=== PATIENT | female | born 1960 | race Caucasian/White ===

== ENCOUNTER 2017-07-06 18:14 | Emergency (ER) | payer MEDICAID, SELFPAY ==
[2017-07-06 18:15] VITALS: BP 124/91; PULSE 119; RESP 16; TEMP 36.4; O2SAT 99; BMI 23.4
--- NOTE | 2017-07-06 19:05 | RAD_ITS ---
XR Spine Lumbar 2 or 3 Views INDICATION: FALL, LOWER BACK PAIN, HX FUSIONS COMPARISON: CT June 01, 2017 . Plain film May 2015 TECHNIQUE: Frontal and lateral views of the lumbar spine with lateral view of the lumbosacral junction FINDINGS: There are postsurgical changes from L2-S1 discectomy and fusion with bilateral pedicle screws and transverse connecting rods. The rods are fractured bilaterally between the L4 and L5 level. There is redemonstration of lucency surrounding the bilateral L2 pedicle screws, the screws appear to have pulled back and only the distal tips are seen extending into the L2 vertebral body. There are severe facet arthritic changes at L2-3 and marked endplate degenerative changes compatible with residual motion at this level. This finding is unchanged compared to the prior CT and unchanged compared to May 2015 plain films. There is no evidence of listhesis. Height of the vertebral bodies is preserved.. RAD/Lumbar Spine 2 or 3 Views IMPRESSION: Postsurgical changes from L2-S1 laminectomies and fusion. The vertical fusion rods are both fractured between the L4 and L5 level, unchanged compared to prior films dating back to May 2015. There is stable loosening of the bilateral L2 pedicle screws with marked degenerative changes at the L2-3 facet joint and disc space. at 1932 Reported and signed by: Aura Encarnacion MD Electronically Signed: Aura Encarnacion MD at 18:30 EST Tel , Service support ,
--- NOTE | 2017-07-06 20:07 | ED.VISSUMM ---
- ER Visit Summary Date of Service: 07/06/17 Chief Complaint: Back pain History of Present Illness: The patient is a 56 F presenting with back pain worsened since yesterday. She has a history of chronic back pain and multiple previous surgeries. She is scheduled to see her orthopedic surgeon on . She does not take any pain medicines at home. She states she slipped on ice 3 days ago and twisted her back. She did not fall completely to the ground. She has a history of urinary incontinence and this has been a chronic problem for her. Denies bowel incontinence. Denies fever or weakness or other complaints. Physical Examination: Vitals are stable. Patient is afebrile. Alert no acute distress. HEENT exam is unremarkable. Neck is nontender Lungs are clear and equal bilaterally. Heart is regular rate and rhythm. Abdomen is soft nontender nondistended. Back diffuse lower tenderness. Extremities are unremarkable. Skin is warm and dry. No focal neurologic deficit. Normal strength and sensation. Remainder of exam is unremarkable. Emergency Department Course and Treatment: She drove herself to the emergency department. X-rays of the lumbar spine are obtained and show postsurgical changes from L2-S1 laminectomies and fusion. The vertical fusion rods are both fractured between the L4 and L5 level, unchanged compared to prior films dating back to May 2015. There is stable loosening of the bilateral L2 pedicle screws with marked degenerative changes at the L2-3 facet joint and disc space. She is given short course of Percocet. Advised to keep her appointment with her orthopedic surgeon on . Advised return to ED for worsening complaints. Disposition: Discharge home Impression: Acute on chronic back pain This note was generated with [employer] dictation software. It may contain incorrect words, spelling, and punctuation that were not noted in review of the chart prior to signing ED Disposition - Plan for ED Patient: Chief Complaint: Back Referrals: Care Physician,No Primary [Primary Care Provider] -
--- NOTE | 2017-07-06 20:10 | ED.DEP ---
ED Disposition - Plan for ED Patient: Chief Complaint: Back Instructions: ED Sprain Strain Lumbar Prescriptions: Oxycodone HCl/Acetaminophen [Percocet 5/325] 1 tablet PO Q6H PRN PRN 3 Days #12 tablet PRN Reason: Pain Referrals: Care Physician,No Primary [Primary Care Provider] -
--- NOTE | 2017-07-06 20:36 | ED.RN ---
DISCHARGE INSTRUCTIONS GIVEN TO AND REVIEWED WITH PATIENT, PATIENT DENIES QUESTIONS OR CONCERNS AND VOICES UNDERSTANDING OF DISCHARGE INSTRUCTIONS. PT AMBULATES OUT OF ROOM WITHOUT DIFFICULTY.
== END 2017-07-06 20:36 | disposition home or self-care (01) ==
LOC: ED 19:26
PROVIDERS: Emergency Provider Emergency Medicine
DX: M54.9 Dorsalgia, unspecified (principal); G89.29 Other chronic pain; Z72.0 Tobacco use
CPT/HCPCS: 72100; 99282

== ENCOUNTER 2017-09-05 02:07 | Emergency (ER) | payer MEDICAID, SELFPAY ==
[2017-09-05 02:09] VITALS: BP 148/96; PULSE 104; RESP 18; TEMP 36.6; O2SAT 100; BMI 22.4
--- NOTE | 2017-09-05 02:16 | ED.VISSUMM ---
- ER Visit Summary Date of Service: 09/05/17 Chief Complaint: Head lice History of Present Illness: The patient is a 57 F with possible lice. She has noted bites to her head and her scalp itches. She was exposed to lice. No other symptoms or concerns. Physical Examination: Vitals unremarkable. I do not appreciate any nits or lice, but she has multiple small areas of ecchymosis and excoriation on her scalp. No evidence of cellulitis. Test Results: None indicated Emergency Department Course and Treatment: Patient did not want to try [id number] remedies. Will prescribe permethrin. She said this worked for a family member. Treatment Plan: As above Disposition: Discharged Impression: 1. Head lice This note was generated with [employer] dictation software. It may contain incorrect words, spelling, and punctuation that were not noted in review of the chart prior to signing ED Disposition - Plan for ED Patient: Disposition: Home or Assisted Living Chief Complaint: Other, Pain/Inj Instructions: ED Lice Head Prescriptions: Permethrin 1% [Nix] 60 ml TOPICAL X1 #1 bottle Referrals: Asif Weber MD [Primary Care Provider] -
--- NOTE | 2017-09-05 02:19 | DCINST.ED_ITS ---
ED Disposition - Plan for ED Patient: Chief Complaint: Other, Pain/Inj Instructions: ED Lice Head Prescriptions: Permethrin 1% [Nix] 60 ml TOPICAL X1 #1 bottle Referrals: Asif Weber MD [Primary Care Provider] -
== END 2017-09-05 02:23 | disposition home or self-care (01) ==
PROVIDERS: Emergency Provider Emergency Medicine; Family Provider Family Medicine; PCP Family Medicine
DX: B85.0 Pediculosis due to Pediculus humanus capitis (principal); Z72.0 Tobacco use
CPT/HCPCS: 99282

== ENCOUNTER → 2017-09-16 13:09 | Outpatient (CLI) | payer MEDICAID, SELFPAY ==
--- NOTE | 2017-09-16 13:11 | RAD_ITS ---
STUDY: X-RAY - LEFT KNEE REASON FOR EXAM: Chronic knee pain. TECHNIQUE: 4 view(s) of the knee. COMPARISON: None. FINDINGS: Normal visualized distal femur. Normal visualized proximal tibia and fibula. Normal proximal tibiofibular articulation. Normal medial femorotibial compartment. Normal lateral femorotibial compartment. Normal patellofemoral articulation. The soft tissue structures are unremarkable. RAD/Knee 4 or More Views IMPRESSION: Normal x-ray examination of the left knee. Electronically Signed: Gilmar Pearson MD at 14:16 EDT Tel , Service support ,
--- NOTE | 2017-09-16 13:11 | RAD_ITS ---
STUDY: X-RAY - RIGHT KNEE REASON FOR EXAM: Chronic knee pain. TECHNIQUE: 4 view(s) of the knee. COMPARISON: Radiograph report 09/16/2012. FINDINGS: Normal visualized distal femur. Normal visualized proximal tibia and fibula. Normal proximal tibiofibular articulation. Normal medial femorotibial compartment. Normal lateral femorotibial compartment. Normal patellofemoral articulation. There is a small enthesophyte at the superior pole of the patella. RAD/Knee 4 or More Views IMPRESSION: Small enthesophyte at the superior pole of the patella. Otherwise, unremarkable x-ray examination of the right knee. Electronically Signed: Gimlar Pearson MD at 14:15 EDT Tel , Service support ,
== END ==
PROVIDERS: Family Provider Family Medicine; PCP Family Medicine; Visit Provider Orthopaedic Surgery
DX: M25.569 Pain in unspecified knee (principal)
CPT/HCPCS: 73564

== ENCOUNTER 2017-09-23 07:41 | Emergency (ER) | payer MEDICAID, SELFPAY ==
[2017-09-23 07:43] VITALS: BP 134/74; PULSE 112; RESP 18; TEMP 36.6; O2SAT 96; BMI 24.0
--- NOTE | 2017-09-23 08:31 | ED.VISSUMM ---
- ER Visit Summary Date of Service: 09/23/17 Chief Complaint: Back pain History of Present Illness: The patient is a [address] Asif Weber and Dr. Uday Reddy. She reports that she has chronic back pain that worsened yesterday. It is a sharp, burning pain that is 10 out of 10 at worst 9 out of 10 currently. Is worsened by walking or touching it. Is relieved by remaining still, heat, and gabapentin. She reports that it radiates down the lateral surface of her right leg to the level of her ankle. No numbness or weakness that is new. No problems with her bowels or her bladder. No groin numbness. No fever. Patient presents paperwork stating that she has a preop appointment with Dr. Uday Reddy October 01 and is scheduled for surgery to have hardware removal October 20. Physical Examination: Vitals: Stable. Afebrile. General: A&O x 3. NAD. Cardiovascular exam: Regular rate and rhythm, no murmur, rub or gallop. Respiratory exam: Clear to auscultation bilaterally. No wheezes or stridor. Abdominal exam: Soft, nontender, nondistended, normal bowel sounds. No peritoneal signs. Back: Diffuse moderate tenderness to palpation over the lumbar spine and the paraspinous musculature in the lumbar region. No point tenderness. Negative straight leg bilaterally. 5/5 DF, PF, EHL bilaterally. Normal sensation to light touch throughout. Extremity: No clubbing, cyanosis, or edema. Emergency Department Course and Treatment: An [facility] report was obtained which shows that she was on Suboxone in July. She is only had 3 prescriptions for opiates in the past year otherwise. She is given a dose of Toradol IM here. Treatment Plan: Patient will be given the benefit of the doubt. She is given a prescription for 12 Percocet and instructed to use these sparingly. Follow-up with Dr. Uday Reddy for further evaluation and her surgery. Return for the signs and symptoms of cauda equina syndrome and these were discussed. Disposition: To home in improved and stable condition. Impression: 1. Acute on chronic back pain. This note was generated with [employer] software. It may contain incorrect words, spelling, and punctuation that were not noted in review of the chart prior to signing ED Disposition - Plan for ED Patient: Chief Complaint: Back Instructions: ED Neck Back Pain General Prescriptions: Oxycodone HCl/Acetaminophen [Percocet 5/325] 1 tablet PO Q6H PRN PRN 3 Days #12 tablet PRN Reason: Pain Referrals: Asif Weber MD [Primary Care Provider] - Additional Instructions: Follow up with Dr. Reddy for surgery as scheduled.
[2017-09-23] MEDS: Ketorolac 60 MG/2 ML Vial IM (08:56)
[2017-09-23 09:03] VITALS: BP 108/77; PULSE 82; RESP 16; O2SAT 98
== END 2017-09-23 09:03 | disposition home or self-care (01) ==
PROVIDERS: Emergency Provider Emergency Medicine; Family Provider Family Medicine; PCP Family Medicine
DX: M54.9 Dorsalgia, unspecified (principal); G89.29 Other chronic pain; R11.0 Nausea; J44.9 Chronic obstructive pulmonary disease, unspecified; F17.210 Nicotine dependence, cigarettes, uncomplicated; Z98.1 Arthrodesis status
CPT/HCPCS: 99282

== ENCOUNTER 2017-09-28 00:43 | Emergency (ER) | payer MEDICAID, SELFPAY ==
[2017-09-28 00:46] VITALS: BP 138/98; PULSE 113; RESP 20; TEMP 36.4; O2SAT 94; BMI 23.2
--- NOTE | 2017-09-28 01:04 | EKG12_ITS ---
Test Reason : CP Blood Pressure : / mmHG Vent. Rate : 108 BPM Atrial Rate : 108 BPM P-R Int : 112 ms QRS Dur : 070 ms QT Int : 304 ms P-R-T Axes : 070 082 077 degrees QTc Int : 407 ms Sinus tachycardia Otherwise normal ECG Confirmed by MARIANA RAZO, DAMIAN ([id number]), technical writer and editor BETTE MENARD ([id number]) on 09/29/2017 2:17:25 PM Referred By: DR NAGY Confirmed By:DAMIAN PEÑA MD
--- NOTE | 2017-09-28 01:05 | ED.VISSUMM ---
- ER Visit Summary Date of Service: 09/28/17 Chief Complaint: Chest pain History of Present Illness: The patient is a 57 F sudden midsternal chest pain radiates to her right shoulder and neck since 5 PM yesterday 8 hours ago. States granddaughters in the ED sent to [facility] for psych evaluation. She was stressed. Pain has been persistent 8 out of 10. She told [facility] nurses states would not help her. She came back. Mild cough. No PE risk factors. Tobacco history. No diabetes, hypertension, hyper cholesterolemia. No family history of MIs at a young age. Stress test years ago. Took 3 full dose aspirins earlier today. Physical Examination: General: Alert and oriented ?3, no acute distress HEENT: Normocephalic, atraumatic. Moist mucosa membranes Neck: supple, nontender. Cardiovascular: Regular rate 96 and rhythm, no murmurs Respiratory: Normal breath sounds, symmetric, no distress Abdomen: Soft, nontender, nondistended Extremities: Nontender, no edema, pulses intact ?4 Neuro: no focal neurological deficits. Test Results: EKG sinus rate of [address] or T-wave changes. D-dimer 0.27. Troponin negative. White blood cell count 16.9. Creatinine normal. Emergency Department Course and Treatment: Patient took aspirin at home. EKG sinus tachycardia. Atypical chest symptoms. She given fentanyl for pain. Low risk Wells criteria for PE. Cardiac workup alone d-dimer are negative. Heart scores a 2. Symptoms greater than 8 hours negative troponin less likely cardiac in nature. Symptoms resolved on reevaluation. Discussed with patient need to follow-up with her PCP for reevaluation outpatient stress test. Patient understands and agrees with plan. Patient return if any worsening symptoms. Treatment Plan: [] Disposition: Discharge Impression: Atypical chest pain This note was generated with [employer] dictation software. It may contain incorrect words, spelling, and punctuation that were not noted in review of the chart prior to signing ED Disposition - Plan for ED Patient: Disposition: Home or Assisted Living Chief Complaint: Chest Pain Diagnosis: Atypical chest pain Instructions: ED Chest Pain Atypical Unkn Cause Referrals: Asif Weber MD [Primary Care Provider] - 3-5 Days
[2017-09-28 01:13] LABS: Absolute Lymphocyte Count 3.94 X10^3/ul (0.83-4.51); Absolute Neutrophil Count 11.4 X10^3/uL (2.0-7.7); Basophil# 0.02 X10^3/uL; Basophil% 0.1 % (0-1); Eosinophil# 0.13 X10^3/uL; Eosinophils% 0.8 % (0-5); Hematocrit 49.6 % (37-47); Hemoglobin 16.8 g/dl (12.0-15.0); Lymphocyte # 3.94 X10^3/ul (4.0); Lymphocyte % 23.4 % (19-41); Mean Corp Hgb Conc 33.9 g/gl (32-36); Mean Corpuscular Hgb 31.9 pg (27.0-32.0); Mean Corpuscular Volume 94.1 fL (81-99); Mean Platelet Vol. 10.2 fl (6.2-12.0); Monocyte# 1.25 X10^3/uL; Monocyte% 7.4 % (0-10); Neutrophil # 11.38 X10^3/uL (2.7-7.7); Neutrophil % 67.4 % (47-70); POSITIVE COUNT NO; POSITIVE DIFFERENTIAL NO; POSITIVE MORPHOLOGY NO; Platelet Count 246 K/mm3 (150-450); RBC Distribution Width CV 14.2 % (11.6-14.6); RBC Distribution Width SD 48.5 fl (35.1-43.9); Red Blood Count 5.27 M/mm3 (4.2-5.4); White Blood Count 16.9 K/mm3 (4.4-11.0)
[2017-09-28 01:28] LABS: D-Dimer Quantitative (DVT/PE) 0.27 FEU/ug/m (0.27-0.49)
[2017-09-28] MEDS: fentaNYL 100 MCG/2 ML Ampul 50 MCG IV (01:29)
[2017-09-28 01:37] LABS: Anion Gap 10 (5-15); BUN 28 mg/dL (7-18); BUN/Creat Ratio 38.5 RATIO (10-20); Calcium,Total 8.9 mg/dL (8.5-10.1); Chloride 108 mmol/L (98-107); Creatinine, Serum 0.73 mg/dL (0.55-1.02); EST Glomerular Filtration Rate 88 mL/min (>60); Est Glom Filt Rate - Afr Amer 106 mL/min (>60); Estimated Creatinine Clearance 89.93 ml/min; Glucose 138 mg/dL (74-106); Sodium Level 140 mmol/L (136-145)
[2017-09-28 01:55] VITALS: PULSE 108; RESP 26
[2017-09-28 02:16] VITALS: PULSE 99; RESP 16; O2SAT 98
--- NOTE | 2017-09-28 02:30 | RAD_ITS ---
STUDY: X-RAY CHEST REASON FOR EXAM: Female, 57 years old. Cough, chest pain TECHNIQUE: PA and lateral views of the chest. COMPARISON: 08/16/2015 FINDINGS: The lungs are hyperaerated. There are superimposed monitor leads. There is no focal parenchymal abnormality. There is no demonstrated pleural abnormality. Normal size heart. Normal mediastinum and jose. Normal visualized pulmonary arteries. Normal visualized aortic arch and descending thoracic aorta. Prior cervical and lumbar fusion. Normal visualized ribs, clavicles, and shoulders. There is no demonstrated abnormality of the visualized soft tissue structures of the upper abdomen. RAD/Chest PA and Lateral IMPRESSION: Stable hyperinflation, component of COPD suspected. No pulmonary edema, congestive heart failure or confluent pneumonia. Electronically Signed: Silvia Mcneil MD at 3:41 EDT , Service support ,
[2017-09-28 03:05] VITALS: BP 147/80; PULSE 100; RESP 20; O2SAT 96
== END 2017-09-28 03:08 | disposition home or self-care (01) ==
PROVIDERS: Emergency Provider Emergency Medicine; Family Provider Family Medicine; PCP Family Medicine
DX: R07.89 Other chest pain (principal); R05 Cough; K21.9 Gastro-esophageal reflux disease without esophagitis; J44.9 Chronic obstructive pulmonary disease, unspecified; Z72.0 Tobacco use; R00.0 Tachycardia, unspecified
CPT/HCPCS: 71046; 80048; 84484; 85025; 85379; 93005; 99284; A4216

== ENCOUNTER 2017-10-04 15:26 | Emergency (ER) | payer MEDICAID, SELFPAY ==
[2017-10-04 15:27] VITALS: BP 134/94; PULSE 131; RESP 16; TEMP 36.9; O2SAT 96; BMI 23.2
--- NOTE | 2017-10-04 16:00 | ED.VISSUMM ---
- ER Visit Summary Date of Service: 10/04/17 Chief Complaint: Exacerbation of chronic back pain. History of Present Illness: The patient is a 57 F dense because of right lower back pain secondary to broken hardware . She is scheduled to see Dr. Uday Reddy at the [facility] October 20. She denies bowel or bladder dysfunction. She denies saddle paresthesia or anesthesia. She denies any radicular pain. She denies foot drop. She denies weakness in her quadriceps muscle going up or down steps. She denies fever, chills night sweats. She denies dysuria, frequency, urgency or hematuria. She states the pain is worse with movement. Nothing is alleviating her discomfort. Patient was bordering to obtain pain medicine. She was informed since this is chronic pain her exam does not reveal evidence of herniated disc or any neurologic deficits treatment is rest, ice and either Tylenol or anti-inflammatory. Furthermore, patient was informed that there has been a recent study published with regards to efficacy of Tylenol versus NSAIDs versus opiate analgesia and there was no statistical difference. Physical Examination: Blood pressure is elevated 134/94. Heart rate is documented 131. On my exam heart rate is 90-95. She does not appear in any discomfort. Head is atraumatic normocephalic. Pupils are equal round reactive. Extraocular muscles are intact. TMs are pearly white with landmarks noted. Nares patent with no drainage. Posterior pharynx without erythema or exudate. Uvula is midline. There is no dysphonia or dysphasia. Trachea is midline. There is no stridor with auscultation of the neck. Heart is regular without murmur, gallop or rub. S1 and S2 are normal. Lungs are clear to auscultation with good movement of air bilaterally. Abdomen is soft nontender. Bowel sounds are present normal. Straight leg test is negative bilaterally. Patient did complain of pain in her right low back at 5?. Patella and ankle reflex are 1+ and symmetric. EHL is intact. There is no clonus or Babinski sign noted. DP and PT pulses are palpable. She has normal sensation. Test Results: None are indicated Emergency Department Course and Treatment: Patient's MRI report from May of this year was read. There is no difference compared to prior MRI. There are postoperative changes noted. Treatment Plan: Rest, ice and either Tylenol or anti-inflammatory. Disposition: Discharged to keep appointment with Dr. Uday Reddy for October 20 Impression: Exacerbation of right low back pain This note was generated with [employer] dictation software. It may contain incorrect words, spelling, and punctuation that were not noted in review of the chart prior to signing ED Disposition - Plan for ED Patient: Disposition: Home or Assisted Living Chief Complaint: Back Instructions: ED Neck Back Pain General Referrals: Jurgen Reddy, [NON-STAFF] - Keep Kadi appointment Asif Wbeer MD [Primary Care Provider] - Keep Kadi appointment
--- NOTE | 2017-10-04 16:05 | ED.DCSUM_ITS ---
- ER Visit Summary Date of Service: 10/04/17 Chief Complaint: Exacerbation of chronic back pain. History of Present Illness: The patient is a 57 F dense because of right lower back pain secondary to broken hardware . She is scheduled to see Dr. Uday Reddy at the [facility] October 20. She denies bowel or bladder dysfunction. She denies saddle paresthesia or anesthesia. She denies any radicular pain. She denies foot drop. She denies weakness in her quadriceps muscle going up or down steps. She denies fever, chills night sweats. She denies dysuria, frequency, urgency or hematuria. She states the pain is worse with movement. Nothing is alleviating her discomfort. Patient was bordering to obtain pain medicine. She was informed since this is chronic pain her exam does not reveal evidence of herniated disc or any neurologic deficits treatment is rest, ice and either Tylenol or anti- inflammatory. Furthermore, patient was informed that there has been a recent study published with regards to efficacy of Tylenol versus NSAIDs versus opiate analgesia and there was no statistical difference. Physical Examination: Blood pressure is elevated 134/94. Heart rate is documented 131. On my exam heart rate is 90-95. She does not appear in any discomfort. Head is atraumatic normocephalic. Pupils are equal round reactive. Extraocular muscles are intact. TMs are pearly white with landmarks noted. Nares patent with no drainage. Posterior pharynx without erythema or exudate. Uvula is midline. There is no dysphonia or dysphasia. Trachea is midline. There is no stridor with auscultation of the neck. Heart is regular without murmur, gallop or rub. S1 and S2 are normal. Lungs are clear to auscultation with good movement of air bilaterally. Abdomen is soft nontender. Bowel sounds are present normal. Straight leg test is negative bilaterally. Patient did complain of pain in her right low back at 5?. Patella and ankle reflex are 1+ and symmetric. EHL is intact. There is no clonus or Babinski sign noted. DP and PT pulses are palpable. She has normal sensation. Test Results: None are indicated Emergency Department Course and Treatment: Patient's MRI report from May of this year was read. There is no difference compared to prior MRI. There are postoperative changes noted. Treatment Plan: Rest, ice and either Tylenol or anti-inflammatory. Disposition: Discharged to keep appointment with Dr. Uday Reddy for October 20 Impression: Exacerbation of right low back pain This note was generated with [employer] dictation software. It may contain incorrect words, spelling, and punctuation that were not noted in review of the chart prior to signing ED Disposition - Plan for ED Patient: Disposition: Home or Assisted Living Chief Complaint: Back Instructions: ED Neck Back Pain General Referrals: Jurgen Reddy, [NON-STAFF] - Keep Kadi appointment Asif Weber MD [Primary Care Provider] - Keep Kadi appointment
== END 2017-10-04 16:20 | disposition home or self-care (01) ==
PROVIDERS: Emergency Provider Emergency Medicine; Family Provider Family Medicine; PCP Family Medicine
DX: M54.5 Low back pain (principal); G89.29 Other chronic pain; F32.9 Major depressive disorder, single episode, unspecified; F41.9 Anxiety disorder, unspecified; R20.2 Paresthesia of skin; K21.9 Gastro-esophageal reflux disease without esophagitis; E78.00 Pure hypercholesterolemia, unspecified; J44.9 Chronic obstructive pulmonary disease, unspecified; Z72.0 Tobacco use
CPT/HCPCS: 99282

== ENCOUNTER 2017-10-24 22:17 | Emergency (ER) | payer MEDICAID, SELFPAY ==
[2017-10-24 22:18] VITALS: BP 110/72; PULSE 114; RESP 18; TEMP 37; O2SAT 98; BMI 22.4
--- NOTE | 2017-10-24 22:36 | ED.RN ---
while triaging pt, attempted to educate pt on risk of infection d/t not changing bandages. pt states i have had 6 back surgeries, i know how to care for them. pt was asked when she didn't change these bandages. pt states i don't know what the doctor wants me to do and i don't have bandages at home. informed pt er was not able to provide bandages and that she should follow her discharge instructions and follow up with her surgeon. pt states to granddaughter you hear this? you hear how she is talking to me? i am calling administration in the morning and telling them how you talked to me.
--- NOTE | 2017-10-24 22:37 | ED.VISSUMM ---
- ER Visit Summary Date of Service: 10/24/17 Chief Complaint: [] Wound check status post surgery History of Present Illness: The patient is a 57 F [] presents here for wound check of her low back. Patient reports she is only here for wound change dressing. She reports she is status post surgery 4 days ago. She had orthopedic hardware removed at [facility]. She reportedly had the wound check 2 days postoperatively and had a new dressing then. She denies fevers. Reports feeling great postoperatively. Physical Examination: [] Afebrile, vital signs stable. Examination of the wound reveals a normal postoperative healing wound with jessica intact. No signs of drainage, erythema, cellulitis. Test Results: [] None. Emergency Department Course and Treatment: [] Patient had the dressing change after the wound was evaluated. She was encouraged to follow-up with her primary care physician and/or orthopedic physician for further wound checks and dressing changes. Treatment Plan: [] Follow-up with orthopedic surgery. Disposition: [] Discharge, stable. Impression: [] Wound check status post back surgery This note was generated with [employer] dictation software. It may contain incorrect words, spelling, and punctuation that were not noted in review of the chart prior to signing ED Disposition - Plan for ED Patient: Chief Complaint: Wound Check Referrals: Asif Weber MD [Primary Care Provider] -
--- NOTE | 2017-10-24 22:40 | ED.DCSUM_ITS ---
- ER Visit Summary Date of Service: 10/24/17 Chief Complaint: [] Wound check status post surgery History of Present Illness: The patient is a 57 F [] presents here for wound check of her low back. Patient reports she is only here for wound change dressing. She reports she is status post surgery 4 days ago. She had orthopedic hardware removed at [facility]. She reportedly had the wound check 2 days postoperatively and had a new dressing then. She denies fevers. Reports feeling great postoperatively. Physical Examination: [] Afebrile, vital signs stable. Examination of the wound reveals a normal postoperative healing wound with jessica intact. No signs of drainage, erythema, cellulitis. Test Results: [] None. Emergency Department Course and Treatment: [] Patient had the dressing change after the wound was evaluated. She was encouraged to follow-up with her primary care physician and/or orthopedic physician for further wound checks and dressing changes. Treatment Plan: [] Follow-up with orthopedic surgery. Disposition: [] Discharge, stable. Impression: [] Wound check status post back surgery This note was generated with [employer] dictation software. It may contain incorrect words, spelling, and punctuation that were not noted in review of the chart prior to signing ED Disposition - Plan for ED Patient: Chief Complaint: Wound Check Referrals: Asif Weber MD [Primary Care Provider] -
--- NOTE | 2017-10-24 22:40 | ED.DEP ---
ED Disposition - Plan for ED Patient: Disposition: Home or Assisted Living Chief Complaint: Wound Check Instructions: ED Wound Check Post Op No Infec Referrals: Asif Weber MD [Primary Care Provider] -
[2017-10-24 23:00] VITALS: RESP 18
== END 2017-10-24 23:03 | disposition home or self-care (01) ==
PROVIDERS: Emergency Provider Emergency Medicine; Family Provider Family Medicine; PCP Family Medicine
DX: Z48.01 Encounter for change or removal of surgical wound dressing (principal)
CPT/HCPCS: 99282

== ENCOUNTER → 2017-11-08 11:53 | Outpatient (CLI) | payer MEDICAID, SELFPAY ==
--- NOTE | 2017-11-08 11:57 | RAD_ITS ---
STUDY: X-RAY - RIGHT HAND REASON FOR EXAM: Swelling and redness of the proximal third metacarpal with pain and weakness, no specific injury. TECHNIQUE: 3 view(s) of the hand. COMPARISON: None. FINDINGS: Normal radiocarpal articulation. Normal distal radioulnar joint. Normal visualized carpal bones. Normal carpal articulations Normal carpometacarpal articulation of the thumb. Normal second through fifth carpometacarpal joints. Normal metacarpi. Normal metacarpophalangeal joint of the thumb. Normal interphalangeal joint of the thumb. Normal proximal and distal phalanges of the thumb. Normal metacarpophalangeal joints of the second through fifth fingers. Normal proximal and distal interphalangeal joints of the second through fifth fingers. Normal phalanges of the second through fifth fingers. The soft tissue structures are unremarkable. RAD/Hand Min 3 Views IMPRESSION: Normal x-ray examination of the right hand. Electronically Signed: Gilmar Pearson MD at 15:17 EDT Tel , Service support ,
== END ==
PROVIDERS: Family Provider Family Medicine; PCP Family Medicine; Visit Provider Family Medicine
DX: M79.641 Pain in right hand (principal)
CPT/HCPCS: 73130

== ENCOUNTER → 2017-11-16 11:46 | Outpatient (CLI) | payer MEDICAID, SELFPAY ==
[2017-11-16 18:53] LABS: AST(SGOT) 96 U/L (15-37); Alanine Aminotransfer ALT/SGPT 97 U/L (13-56); Albumin, Serum 3.1 g/dL (3.2-5.0); Alkaline Phosphatase 157 U/L (45-117); Anion Gap 7 (5-15); BUN 17 mg/dL (7-18); BUN/Creat Ratio 34.1 RATIO (10-20); Calcium,Total 8.1 mg/dL (8.5-10.1); Chloride 108 mmol/L (98-107); EST Glomerular Filtration Rate 136 mL/min (>60); Est Glom Filt Rate - Afr Amer 164 mL/min (>60); Globulin 3.1 g/dL (2.2-4.2); Glucose 114 mg/dL (74-106); Magnesium 2.2 mg/dL (1.6-2.6); Potassium 4.3 mmol/L (3.5-5.1); Protein, Total 6.2 g/dL (6.4-8.2); Sodium Level 140 mmol/L (136-145); Thyroid Stim Hormone (TSH) 1.44 uIU/mL (0.358-3.74)
[2017-11-17 10:28] LABS: Vitamin D,25 Hydroxy 13.9 ng/mL (29.95-100.01)
== END ==
PROVIDERS: Family Provider Family Medicine; PCP Family Medicine; Visit Provider Family Medicine
DX: R25.2 Cramp and spasm (principal)
CPT/HCPCS: 36415; 80053; 82306; 83735; 84443

== ENCOUNTER 2017-12-08 08:03 | Emergency (ER) | payer MEDICAID, SELFPAY ==
[2017-12-08 08:04] VITALS: BP 117/80; PULSE 109; RESP 16; TEMP 37.2; BMI 22.8
--- NOTE | 2017-12-08 08:17 | RAD_ITS ---
STUDY: X-RAY - RIGHT ANKLE REASON FOR EXAM: Female, 57 years old. Pain. Limited range of motion. TECHNIQUE: 4 view(s) of the ankle. COMPARISON: None. FINDINGS: Normal visualized distal tibia and fibula. Normal medial and lateral malleoli. Normal tibiotalar articulation and ankle mortise. There is evidence of a talar neck leak. The visualized subtalar, talonavicular, calcaneocuboid and tarsal articulations are normal. The soft tissue structures are unremarkable. RAD/Ankle min 3 Views IMPRESSION: Normal x-ray examination of the ankle. Electronically Signed: Daniel Mason MD at 8:52 EDT Tel [phone], Service support ,
--- NOTE | 2017-12-08 08:17 | RAD_ITS ---
STUDY: X-RAY - RIGHT FOOT CLINICAL: Female, 57 years old. Pain and limited range of motion. TECHNIQUE: 3 view(s) of the foot. COMPARISON: None. FINDINGS: There is a dorsal talar neck ?beak?. Normal visualized subtalar, talonavicular, calcaneocuboid, tarsal and tarsometatarsal articulations. Normal metatarsi. Normal metatarsophalangeal joint of the great toe. Normal tibial and fibular sesamoid bones. Normal interphalangeal joint of the great toe. Normal phalanges of the great toe. Normal second through fifth metatarsophalangeal joints. Normal interphalangeal joints and phalanges of the lesser toes. The soft tissue structures are unremarkable. RAD/Foot min 3 Views IMPRESSION: Normal x-ray examination of the foot. Electronically Signed: Daniel Mason MD at 8:52 EDT Tel [phone], Service support ,
--- NOTE | 2017-12-08 08:29 | ED.DCSUM_ITS ---
- ER Visit Summary Date of Service: 12/08/17 Chief Complaint: Right ankle pain History of Present Illness: The patient is a 57 F who states that she was going down some steps yesterday and stepped in a small hole due to some uneven concrete causing an inversion injury to her right ankle. She states she caused abrasions to the left knee and foot. She notes pain in the right ankle particularly laterally on top. She denies any right knee pain or right leg pain. Patient was assuming she had minor injury but the pain continued throughout the night and sought treatment today. Unknown last tetanus. Physical Examination: Afebrile vital signs are stable There is abrasion noted over the anterior left knee and lateral left foot. There is small abrasion over the right lateral malleolus right fifth metatarsal. There is tenderness in this area. There is no significant swelling or ecchymosis. There is no fibular head pain. Test Results: X-rays of the right foot and ankle were negative for fracture. Emergency Department Course and Treatment: Wounds were cleansed and dressed. Tetanus is updated with Adacel. She will use Joe wrap. Follow-up 10-14 days if not improved. Monitor for infection signs. Impression: 1. Right ankle sprain 2. Bilateral lower extremity abrasions 3. Tetanus update This note was generated with [employer] dictation software. It may contain incorrect words, spelling, and punctuation that were not noted in review of the chart prior to signing ED Disposition - Plan for ED Patient: Disposition: Home or Assisted Living Chief Complaint: Lower Extremity Injury Instructions: ED Sprain Ankle W X Ray Referrals: Asif Weber MD [Primary Care Provider] - 10-14 Days if not better
[2017-12-08] MEDS: Diphth,Pertuss(Acell),Tet Vac 0.5 ML Vial IM (08:36)
== END 2017-12-08 09:11 | disposition home or self-care (01) ==
PROVIDERS: Emergency Provider Emergency Medicine; Family Provider Family Medicine; PCP Family Medicine
DX: S80.212A Abrasion, left knee, initial encounter (principal); S80.211A Abrasion, right knee, initial encounter; S93.401A Sprain of unspecified ligament of right ankle, initial encounter; Z23 Encounter for immunization; J44.9 Chronic obstructive pulmonary disease, unspecified; K21.9 Gastro-esophageal reflux disease without esophagitis; Z72.0 Tobacco use; X50.1XXA Overexertion from prolonged static or awkward postures, initial encounter; Y93.9 Activity, unspecified; Y92.89 Other specified places as the place of occurrence of the external cause; Y99.9 Unspecified external cause status
CPT/HCPCS: 73610; 73630; 90471; 90715; 99282

== ENCOUNTER 2018-01-19 10:34 | Emergency (ER) | payer MEDICAID, SELFPAY ==
[2018-01-19 10:35] VITALS: BP 153/82; PULSE 93; RESP 18; TEMP 36.7; O2SAT 99; BMI 22.1
[2018-01-19 11:13] LABS: Absolute Lymphocyte Count 1.59 X10^3/ul (0.83-4.51); Absolute Neutrophil Count 3.3 X10^3/uL (2.0-7.7); Basophil# 0.02 X10^3/uL; Basophil% 0.4 % (0-1); Eosinophil# 0.11 X10^3/uL; Eosinophils% 1.9 % (0-5); Hematocrit 42.2 % (37-47); Hemoglobin 13.5 g/dl (12.0-15.0); Lymphocyte # 1.59 X10^3/ul (4.0); Lymphocyte % 27.9 % (19-41); Mean Corpuscular Hgb 29.8 pg (27.0-32.0); Mean Corpuscular Volume 93.2 fL (81-99); Mean Platelet Vol. 11.1 fl (6.2-12.0); Monocyte# 0.63 X10^3/uL; Monocyte% 11.1 % (0-10); Neutrophil # 3.34 X10^3/uL (2.7-7.7); Neutrophil % 58.7 % (47-70); POSITIVE COUNT NO; POSITIVE DIFFERENTIAL NO; POSITIVE MORPHOLOGY NO; Platelet Count 132 K/mm3 (150-450); RBC Distribution Width CV 13.7 % (11.6-14.6); RBC Distribution Width SD 46.7 fl (35.1-43.9); Red Blood Count 4.53 M/mm3 (4.2-5.4); White Blood Count 5.7 K/mm3 (4.4-11.0)
[2018-01-19 11:21] VITALS: BP 148/80; PULSE 90; RESP 14; O2SAT 98
[2018-01-19] MEDS: Metoclopramide 10 MG/2 ML Vial IV (11:26)
[2018-01-19 11:29] LABS: ALB/GLOB Ratio 0.9 RATIO (0.9-2.4); AST(SGOT) 101 U/L (15-37); Alanine Aminotransfer ALT/SGPT 71 U/L (13-56); Albumin, Serum 3.1 g/dL (3.2-5.0); Alkaline Phosphatase 150 U/L (45-117); Anion Gap 8 (5-15); BUN 11 mg/dL (7-18); Calcium,Total 8.6 mg/dL (8.5-10.1); Chloride 108 mmol/L (98-107); Creatinine, Serum 0.61 mg/dL (0.55-1.02); EST Glomerular Filtration Rate 108 mL/min (>60); Est Glom Filt Rate - Afr Amer 130 mL/min (>60); Estimated Creatinine Clearance 107.62 ml/min; Globulin 3.4 g/dL (2.2-4.2); Glucose 101 mg/dL (74-106); Lipase 250 U/L (73-393); Potassium 3.6 mmol/L (3.5-5.1); Protein, Total 6.5 g/dL (6.4-8.2); Sodium Level 144 mmol/L (136-145)
[2018-01-19 13:03] LABS: Mucous, Urine 0 SEEN /hpf (<or=2+); Red Blood Cells-Urine 0 SEEN /hpf (0-5); White Blood Cells 0 SEEN /hpf (0-5)
[2018-01-19 13:06] LABS: Color, Urine Yellow (Yellow); Glucose, Dipstick Normal (Normal); Ketone-Dipstick Negative (Negative); Leukocyte Esterase-Dipstick Negative /ul (Negative); Nitrite-Dipstick Negative (Negative); Occult Blood-Urine Negative /ul (Negative); Protein-Dipstick Negative (Negative); Urine Bilirubin Dipstick Negative (Negative); Urine Clarity Sl. Cloudy (Clear); Urine Urobilinogen Normal (Normal)
[2018-01-19 13:14] LABS: Bacteria RARE /hpf (None Seen); Squamous Epithelial Cells - UA 0-5 SEEN /hpf (5-10)
--- NOTE | 2018-01-19 13:18 | ED.VISSUMM ---
- ER Visit Summary Date of Service: 01/19/18 Chief Complaint: [Nausea and abdominal pain] History of Present Illness: The patient is a 57 F [presents the emergency department complaint of nausea started 2 weeks ago. Patient states that symptoms have been relatively continuous. Patient describes intermittent abdominal cramping as well. Patient describes the discomfort in her abdomen is epigastric. Patient at times feels like she needs to belch frequently after eating and feels like the food does not move through. Patient denies any diarrhea. She denies any blood in her stool or black tarry stool. She denies any fevers. Patient states at times she will take [place] and it seems to help her pain. Patient also describes intermittent episodes of just vomiting. Patient denies any chest pain or shortness of breath. Patient does have a history of COPD and history of peptic ulcer disease as she currently takes Protonix.] Patient has had prior cholecystectomy. Physical Examination: HEENT-PERRLA, EOMI. Cranial nerves II through XII grossly intact. TMs clear. Mucous membranes moist. No adenopathy. Cardiovascular-regular rate and rhythm without murmur or ectopy Lungs-clear to auscultation, chest wall stable without crepitus or subcu emphysema Abdomen-normoactive bowel sounds, soft. Patient does have some tenderness over the epigastric region with some guarding. There is no rebound, rigidity, or perineal signs. Patient also has some just generalized diffuse abdominal discomfort on exam as well. Extremities-intact ?4, normal range of motion, normal pulses, atraumatic[] Test Results: [CBC with differential obtained showed a white blood cell count of 5.7, hemoglobin 13, hematocrit 42, platelets 132. Chemistries unremarkable. LFTs showed a alkaline phosphatase of 150, ALT 71, AST 101, and lipase was 250. Troponin was less than 0.015. EKG obtained showed a sinus rhythm with a ventricular rate of 81 bpm with no acute ST segment changes. CT scan of the abdomen and pelvis with IV p.o. contrast showed nothing acute. Patient was noted to have some fatty infiltration of the liver.] Emergency Department Course and Treatment: [Patient was medicated with Zofran IV.] This point etiology of patient's pain is unclear patient may need further workup including possibly EGD to evaluate further. Treatment Plan: [Patient will follow up with Dr. Onofre Olmos in 2 days as she has a appointment set.] Patient will be given a prescription for Phenergan. Patient advised to avoid spicy and greasy foods as well as acidic foods. Disposition: [Discharged home in stable condition.] Impression: Abdominal pain-etiology uncertain] Nausea This note was generated with [employer] dictation software. It may contain incorrect words, spelling, and punctuation that were not noted in review of the chart prior to signing ED Disposition - Plan for ED Patient: Chief Complaint: Nausea/Vomiting Referrals: Asif Weber MD [Primary Care Provider] -
--- NOTE | 2018-01-19 13:22 | ED.DEP ---
ED Disposition - Plan for ED Patient: Chief Complaint: Nausea/Vomiting Instructions: ED Nausea Vomiting, Abdominal Pain Prescriptions: proMETHazine tablet [Phenergan] 25 mg PO Q6H PRN PRN #10 tab PRN Reason: Nausea Referrals: Asif Weber MD [Primary Care Provider] - Onofre Olmos MD [STAFF PHYSICIAN] - 2 Days
[2018-01-19 13:33] VITALS: BP 130/70; PULSE 85; PULSE 90; RESP 14; O2SAT 98
== END 2018-01-19 13:34 | disposition home or self-care (01) ==
PROVIDERS: Emergency Provider Emergency Medicine; Family Provider Family Medicine; PCP Family Medicine
DX: R11.0 Nausea (principal); R10.9 Unspecified abdominal pain; K76.0 Fatty (change of) liver, not elsewhere classified; J44.9 Chronic obstructive pulmonary disease, unspecified; Z87.11 Personal history of peptic ulcer disease; Z90.49 Acquired absence of other specified parts of digestive tract; Z72.0 Tobacco use
CPT/HCPCS: 74177; 80053; 81001; 83690; 84484; 85025; 93005; 96374; 99283; Q9967; A4216

== ENCOUNTER 2018-03-11 02:51 | Emergency (ER) | payer MEDICAID, SELFPAY ==
[2018-03-11 02:52] VITALS: BP 119/81; PULSE 107; RESP 18; TEMP 36.6; O2SAT 98; BMI 25.2
--- NOTE | 2018-03-11 03:03 | ED.DCSUM_ITS ---
- ER Visit Summary Date of Service: 03/11/18 Chief Complaint: Rash History of Present Illness: The patient is a 57 F who presents with a rash. She states she has had it for 3 weeks. She went out to [place] last month and the rash started when she came back. She denies any new irritants. She states it started on the neck but now spreading down the trunk. It itches. She has been trying Benadryl and itching spray Physical Examination: Vital signs reviewed. HEENT exam reveals no lesions inside the mouth. Skin exam reveals a rash of the trunk into the neck. There is no petechia or purpura. No blisters noted. Test Results: None performed Emergency Department Course and Treatment: Patient has a nonspecific dermatitis. She will be given hydrocortisone cream and Vistaril. She will follow-up with her PCP Treatment Plan: [] Disposition: Discharge Impression: Dermatitis This note was generated with [employer] dictation software. It may contain incorrect words, spelling, and punctuation that were not noted in review of the chart prior to signing ED Disposition - Plan for ED Patient: Chief Complaint: Rash Referrals: Asif Weber MD [Primary Care Provider] -
--- NOTE | 2018-03-11 03:03 | ED.DEP ---
ED Disposition - Plan for ED Patient: Disposition: Home or Assisted Living Chief Complaint: Rash Instructions: ED Dermatitis Non Specific Rash Prescriptions: hydrOXYzine pamoate capsule [Vistaril] 25 mg PO TID PRN PRN #30 cap PRN Reason: Itching Hydrocortisone 1% Crm [Hytone] 1 applic TOPICAL BID #1 tube Referrals: Asif Weber MD [Primary Care Provider] -
== END 2018-03-11 03:15 | disposition home or self-care (01) ==
PROVIDERS: Emergency Provider Emergency Medicine; Family Provider Family Medicine; PCP Family Medicine
DX: L30.9 Dermatitis, unspecified (principal); Z72.0 Tobacco use
CPT/HCPCS: 99282

== ENCOUNTER → 2018-05-30 13:00 | Outpatient (CLI) | payer MEDICAID, SELFPAY ==
[2018-05-26 12:59] VITALS: BMI 25.2
[2018-05-30 13:26] LABS: Erythrocyte Sedimentation Rate 4 mm/hr (0-30)
[2018-05-30 13:48] LABS: AST(SGOT) 103 U/L (15-37); Alanine Aminotransfer ALT/SGPT 94 U/L (13-56); Albumin, Serum 3.7 g/dL (3.2-5.0); Alkaline Phosphatase 143 U/L (45-117); Ammonia < 10.0 umol/L (11-32); Anion Gap 10 (5-15); BUN 14 mg/dL (7-18); CRP < 2.90 mg/L (0.0-3.0); Calcium,Total 8.9 mg/dL (8.5-10.1); Chloride 106 mmol/L (98-107); Creatinine, Serum 0.61 mg/dL (0.55-1.02); EST Glomerular Filtration Rate 108 mL/min (>60); Est Glom Filt Rate - Afr Amer 130 mL/min (>60); Globulin 3.6 g/dL (2.2-4.2); Glucose 98 mg/dL (74-106); Potassium 3.6 mmol/L (3.5-5.1); Protein, Total 7.3 g/dL (6.4-8.2); Sodium Level 140 mmol/L (136-145)
[2018-05-30 13:50] LABS: Vitamin B12 444 pg/mL (211-911)
== END ==
PROVIDERS: Family Provider Family Medicine; PCP Family Medicine; Referring Provider Psychiatry & Neurology Neurology; Visit Provider Psychiatry & Neurology Neurology
DX: R41.3 Other amnesia (principal); R51 Headache
CPT/HCPCS: 36415; 80053; 82140; 82607; 85652; 86140

== ENCOUNTER → 2018-06-03 13:26 | Outpatient (CLI) | payer MEDICAID, SELFPAY ==
[2018-05-26 12:59] VITALS: BMI 25.2
--- NOTE | 2018-06-03 13:45 | MRI_ITS ---
STUDY: MRI BRAIN WITH AND WITHOUT CONTRAST REASON FOR EXAM: Female, 57 years old. Memory issues. White matter disease. Headaches. TECHNIQUE: Standardized multiplanar fat and water weighted pulse sequences were obtained. 7 ml of Gadavist contrast material was administered intravenously for the contrast portion of the examination. COMPARISON: MRI of the brain without contrast 02/01/2012. FINDINGS: No restricted diffusion to suspect acute or subacute ischemic infarct. Normal size of the ventricles and extra-axial spaces for the patient's age. Nonspecific subcortical white matter T2 FLAIR hyperintensity foci in both cerebral hemispheres. No midline shift and no mass effects. Normal bilateral basal ganglia. Normal thalami. There is no extra-axial fluid accumulation. Normal flow voids within the major intracranial circulation suggesting patency by spin echo criteria. Normal venous enhancement. There is no enhancing intra-axial or extra-axial abnormality. Normal sella turcica, pituitary gland, infundibular stalk, optic chiasm and hypothalamus. Normal tectal plate and pineal gland. Normal midbrain, so and medulla. Normal cerebellum. Normal basal cisterns. Normal bilateral temporal bones. Normal bilateral internal auditory canals. No demonstrated orbital abnormality, within the constraints of a routine brain study. Normal visualized paranasal sinuses. Normal calvarium and skull base. Normal visualized soft tissue structures. Normal visualized upper cervical spine. MRI/Brain W/WO Contrast IMPRESSION: 1. No MRI evidence of acute or subacute ischemic infarct. 2. No MRI evidence of remote cortical-based ischemic infarct. 3. Nonspecific T2 FLAIR white matter high signal abnormality in both cerebral hemispheres. They are unchanged. Possibilities include migraine-related changes, report vasculitis and microvascular disease. 4. No significant interval changes when compared to 02/01/2012. Electronically Signed: Brian Elaine MD at 12:16 EST , Service support ,
== END ==
PROVIDERS: Family Provider Family Medicine; PCP Family Medicine; Referring Provider Psychiatry & Neurology Neurology; Visit Provider Psychiatry & Neurology Neurology
DX: R51 Headache (principal)
CPT/HCPCS: 70553; A9585

== ENCOUNTER 2018-07-06 20:16 | Emergency (ER) | payer MEDICAID, SELFPAY ==
[2018-05-26 12:59] VITALS: BMI 25.2
[2018-07-06 20:17] VITALS: BP 157/72; PULSE 87; RESP 16; TEMP 36.6; O2SAT 100; BMI 23.5
--- NOTE | 2018-07-06 21:27 | RAD_ITS ---
STUDY: X-RAY CHEST REASON FOR EXAM: Female, 57 years old. Nausea and vomiting. Cough. TECHNIQUE: Frontal and lateral views of the chest. COMPARISON: 09/28/17. FINDINGS: The lungs are clear and expanded. There is no demonstrated pleural abnormality. Normal size heart. Normal mediastinum and jose. Normal visualized pulmonary arteries. Normal visualized aortic arch and descending thoracic aorta. Normal visualized thoracic spine. Previous cervical spine surgery. Normal visualized ribs, clavicles, and shoulders. There is no demonstrated abnormality of the visualized soft tissue structures of the upper abdomen. RAD/Chest PA and Lateral IMPRESSION: Normal x-ray examination of the chest. Electronically Signed: Joshua Arvizu MD at 21:40 EST , Service support ,
--- NOTE | 2018-07-06 22:36 | ED.VISSUMM ---
- ER Visit Summary Date of Service: 07/06/18 Chief Complaint: Cough, body aches, posttussive emesis History of Present Illness: The patient is a 57 F reports waxing and waning upper respiratory symptoms throughout the winter, his symptoms became worse today with chills and body aches. She states her chest feels tight. She had cough with yellow sputum and does note some posttussive emesis. Patient has a history of COPD and GERD. Physical Examination: Blood pressure is 157/72, other vitals normal. Patient is lying in bed no acute distress. Head neck examination is unremarkable. Heart is regular rate and rhythm. Lungs sounds with mild expiratory wheezes. Abdomen is soft nontender. Test Results: Two-view chest x-ray is unremarkable. Emergency Department Course and Treatment: Test results are discussed with the patient. She has had ill contacts but now has chills with body aches and significant cough. I am concerned that she has contracted influenza. This likely worsened her COPD. She will be treated with prednisone and will continue her albuterol inhaler at home. Should be treated with Tamiflu as well. Treatment Plan: [] Disposition: Discharge Impression: 1. COPD exacerbation 2. Influenza This note was generated with [employer] dictation software. It may contain incorrect words, spelling, and punctuation that were not noted in review of the chart prior to signing ED Disposition - Plan for ED Patient: Disposition: Home or Assisted Living Instructions: ED COPD Flare, ED Flu Prescriptions: Prednisone [Deltasone] 40 mg PO DAILY #10 tablet Oseltamivir Phosphate [Tamiflu] 75 mg PO BID #10 capsule Additional Instructions: Follow-up with your physician in [place] as scheduled.
[2018-07-06] MEDS: Oseltamivir Phosphate 75 MG Capsule PO (22:53)
[2018-07-06] MEDS: predniSONE 20 MG Tablet 40 MG PO (22:53)
[2018-07-06 22:54] VITALS: RESP 18
== END 2018-07-06 22:54 | disposition home or self-care (01) ==
PROVIDERS: Emergency Provider Emergency Medicine
DX: J44.1 Chronic obstructive pulmonary disease with (acute) exacerbation (principal); J11.1 Influenza due to unidentified influenza virus with other respiratory manifestations; K21.9 Gastro-esophageal reflux disease without esophagitis; Z79.899 Other long term (current) drug therapy; Z72.0 Tobacco use
CPT/HCPCS: 71046; 99283

== ENCOUNTER → 2018-08-08 12:45 | Outpatient (CLI) | payer MEDICAID, SELFPAY ==
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
== END ==
PROVIDERS: Referring Provider Physician Assistant; Visit Provider Physician Assistant
DX: M25.551 Pain in right hip (principal)
CPT/HCPCS: 73502

== ENCOUNTER 2018-08-14 17:47 | Emergency (ER) | payer MEDICAID, SELFPAY ==
[2018-08-08 12:48] VITALS: BMI 23.5
[2018-08-14] VITALS (7 sets, daily range): BP systolic 105–111; BP diastolic 69–80; PULSE 85–135; RESP 12–22; TEMP 36.8; O2SAT 94–99; BMI 22.9
--- NOTE | 2018-08-14 18:11 | EKG12_ITS ---
Test Reason : PALPS Blood Pressure : / mmHG Vent. Rate : 114 BPM Atrial Rate : 114 BPM P-R Int : 122 ms QRS Dur : 082 ms QT Int : 312 ms P-R-T Axes : 068 084 076 degrees QTc Int : 430 ms Sinus tachycardia Otherwise normal ECG Confirmed by MARIANA RAZO, DAMIAN ([id number]), society editor SANDY MIX ([id number]) on 08/17/2018 1:38:29 PM Referred By: Scotty Rivera Confirmed By:DAMIAN PEÑA MD
[2018-08-14 18:23] LABS: Absolute Lymphocyte Count 2.11 X10^3/ul (0.83-4.51); Absolute Neutrophil Count 4.9 X10^3/uL (2.0-7.7); Basophil# 0.02 X10^3/uL; Basophil% 0.3 % (0-1); Eosinophil# 0.18 X10^3/uL; Eosinophils% 2.3 % (0-5); Hematocrit 47.1 % (37-47); Hemoglobin 15.6 g/dl (12.0-15.0); Lymphocyte # 2.11 X10^3/ul (4.0); Lymphocyte % 26.5 % (19-41); Mean Corp Hgb Conc 33.1 g/gl (32-36); Mean Corpuscular Hgb 30.8 pg (27.0-32.0); Mean Corpuscular Volume 92.9 fL (81-99); Mean Platelet Vol. 10.8 fl (6.2-12.0); Monocyte# 0.69 X10^3/uL; Monocyte% 8.7 % (0-10); Neutrophil # 4.94 X10^3/uL (2.7-7.7); Neutrophil % 62.1 % (47-70); POSITIVE COUNT NO; POSITIVE DIFFERENTIAL NO; POSITIVE MORPHOLOGY NO; Platelet Count 166 K/mm3 (150-450); RBC Distribution Width CV 13.6 % (11.6-14.6); Red Blood Count 5.07 M/mm3 (4.2-5.4)
[2018-08-14 18:39] LABS: Anion Gap 9 (5-15); BUN 17 mg/dL (7-18); BUN/Creat Ratio 22.7 RATIO (10-20); Calcium,Total 8.6 mg/dL (8.5-10.1); Chloride 107 mmol/L (98-107); Creatinine, Serum 0.75 mg/dL (0.55-1.02); EST Glomerular Filtration Rate 85 mL/min (>60); Est Glom Filt Rate - Afr Amer 103 mL/min (>60); Estimated Creatinine Clearance 86.49 ml/min; Glucose 145 mg/dL (74-106); Potassium 3.8 mmol/L (3.5-5.1); Sodium Level 141 mmol/L (136-145)
[2018-08-14] MEDS: Albuterol 2.5 MG/3 ML VIAL.NEB. INHALATION (19:30)
--- NOTE | 2018-08-14 19:35 | ED.DCSUM_ITS ---
History of Present Illness Chief Complaint: Palpitations Informant: Patient Onset: Days - 5 Context: Gradual Onset Timing: Continuous Quality: racing Location: chest Current Severity: Moderate Maximum Severity: Moderate Worsened by: nothing Relieved by: nothing Associated Symptoms: intermittent sharp chest pain, just left of sternum. sob. usual cough. Narrative: Patient has a history of COPD without home oxygen. She has had her usual cough that is minimally productive without any significant changes. She has some white matter disease on brain MRI and saw her neurologist about 3 weeks ago, her Lexapro was increased from 10 mg to 20 mg daily, but the symptoms just started 5 days ago and have been fairly persistent. No recent travel, hospitalization, immobilization, surgery. No leg pain or swelling. No history of DVT or PE. She also started a baby aspirin recently but no other medication changes. - Past Medical History (1) COPD (chronic obstructive pulmonary disease) Status: Chronic (2) H pylori ulcer Status: Chronic Past Medical History - Allergies and Home Meds Allergies/Adverse Reactions: Allergies trazodone Allergy (Mild, Verified 08/14/18 17:49) leg cramps amoxicillin [From Augmentin] Allergy (Verified 08/14/18 17:49) Nausea clavulanic acid [From Augmentin] Allergy (Verified 08/14/18 17:49) Nausea naproxen [From Naprosyn] Adverse Reaction (Verified 08/14/18 17:49) Upset Stomach Primary Care Physician: Care Physician,No Primary [Primary Care Provider] - Surgical History: - - egd and colonoscopy in the past, multiple back surgeries Lives: Alone Smoking Status: Current every day smoker Drugs: None - Family History Paternal Family History: Family History (Last Reviewed 05/26/18 @ 12:59 by Anita Cox) Other Arthritis Cancer Diabetes Hypertension Family History: Reports: No pertinent history Maternal Family History: Family History (Last Reviewed 05/26/18 @ 12:59 by Anita Cox) Other Arthritis Cancer Diabetes Hypertension Family History: Reports: No pertinent history Review of Systems General: Denies: Chills, Fever, Sweats Eyes: Denies: Visual changes - bilaterally, Diplopia ENT: Denies: Rhinorrhea, Sore throat Cardiovascular: Reports: Chest pain, Palpitations, Heart racing Respiratory: Reports: Dyspnea, Cough, Sputum, Dyspnea on exertion. Denies: Orthopnea Gastrointestinal: Denies: Abdominal pain, Nausea, Vomiting, Diarrhea, Melena, Hematochezia Genitourinary: Denies: Dysuria, Hematuria, Frequency Musculoskeletal: Reports: Back pain - Chronic, unchanged. Denies: Swelling, Extremity Pain Skin: Denies: Rash, Wounds Neurological: Denies: Headache, Weakness, Numbness Psych: Reports: Anxiety. Denies: Suicidal thoughts Physical Exam Vital Signs/Narrative: Vital Signs Temp Pulse Resp BP Pulse Ox 08/14/18 19:30 98 17 08/14/18 18:45 93 12 110/79 95 08/14/18 17:48 98.2 F 135 H 18 111/80 99 Inital Vital Signs reviewed: Yes General: Well nourished, Well developed, No Acute Distress - Speaking in full sentences, conversive Head: Normocephalic, Atraumatic Eyes: Perrl, EOMI ENT: Moist mucous membranes, No rhinorrhea Neck: Supple, Nontender, No lymphadenopathy, No JVD Cardiovascular: Regular rate, Regular rhythm, No murmurs, Normal S1, Normal S2, Tachycardia Respiratory: No distress, Chest nontender, Wheezing - End expiratory mild. Prolonged expiratory phase., Diminished - Throughout, symmetrically Abdomen: Soft, Nontender, Nondistended, Normal bowel sounds Back: Nontender, Normal Inspection Extremities: Nontender, No edema Skin: Normal color, No rash Neurological: Alert, Oriented x3, Cranial nerves II-XII grossly intact, Normal Strength, Normal Sensation Psychological: Normal Mood, - - anxious Diagnostic/Tx/Re-eval Impressions Chest X-Ray 08/14/18 19:40 IMPRESSION: Stable hyperexpansion. No acute finding. Electronically Signed: Madhav Machuca MD at 20:13 EDT , Service support , 08/14/18 19:40 Chest PA and Lateral [RAD] Stat Laboratory Results 08/14/18 08/14/18 08/14/18 18:04 18:04 18:04 WBC 8.0 RBC 5.07 Hgb 15.6 H Hct 47.1 H MCV 92.9 MCH 30.8 MCHC 33.1 RDW 13.6 RDW Differential 46.0 H Plt Count 166 MPV 10.8 Immature Gran % (Auto) 0.100 Neut % (Auto) 62.1 Lymph % (Auto) 26.5 [place] % (Auto) 8.7 Eos % (Auto) 2.3 Baso % (Auto) 0.3 Absolute Neuts (auto) 4.9 Absolute Lymphs (auto) 2.11 Total Counted Not Reportable D-Dimer Quant (PE/DVT) < 0.27 L Sodium 141 Potassium 3.8 Chloride 107 Carbon Dioxide 25.0 Anion Gap 9 BUN 17 Creatinine 0.75 Estim Creat Clear Calc 86.49 Est GFR (MDRD) Af Amer 103 Est GFR (MDRD) Non-Af 85 BUN/Creatinine Ratio 22.7 H Glucose 145 H Calcium 8.6 Troponin I < 0.015 - Rhythm Strip Rhythm Strip: Sinus Tach Rate: 114 Ectopy: None - EKG Initial EKG Interpretation: No Acute Injury Pattern, Sinus Tachycardia - Otherwise normal EKG - Medical Decision Making While having palpitations, her heart rate and rhythm are normal. Her chest discomfort has been sharp, minutes, brief, not recurrent while in the emergency department. Her enzymes are normal. Her d-dimer is normal. Chest x-ray shows COPD but no acute abnormalities, and on reevaluation after an albuterol treatment, she states her breathing may be a little better but it is making her more shaky and anxious. She states she has been very anxious. This may be why her Lexapro was increased, and this may be causing her symptoms. I do not think she needs to be admitted her at further emergent workup at this time, I am comfortable letting her be discharged home and follow-up with her doctor and she is comfortable with that plan and asking for something for anxiety. I will give her a dose of Vistaril and a prescription for more she has a ride home and she is comfortable with that plan. ED Disposition - Plan for ED Patient: Disposition: Home or Assisted Living Diagnosis: Palpitations, Intermittent chest pain, Anxiety, COPD (chronic obstructive pulmonary disease) Instructions: ED Palpitations, ED Stress React Prescriptions: hydrOXYzine pamoate capsule [Vistaril pamoate capsule] 2 cap PO Q4H PRN #24 capsule PRN Reason: Anxiety Referrals: Doctor,Your [STAFF PHYSICIAN] - 3-5 Days
--- NOTE | 2018-08-14 19:40 | RAD_ITS ---
STUDY: X-RAY CHEST REASON FOR EXAM: Female, 58 years old. Chest pain and shortness of breath. [facility] 3 TECHNIQUE: Frontal and lateral views of the chest. COMPARISON: July 06, 2018 FINDINGS: There is stable hyperexpansion. There is no demonstrated pleural abnormality. Normal size heart. Normal mediastinum and jose. Normal visualized pulmonary arteries. Normal visualized aortic arch and descending thoracic aorta. Normal visualized thoracic spine. Normal visualized ribs, clavicles, and shoulders. There is no demonstrated abnormality of the visualized soft tissue structures of the upper abdomen. RAD/Chest PA and Lateral IMPRESSION: Stable hyperexpansion. No acute finding. Electronically Signed: Madhav Machuca MD at 20:13 EDT , Service support ,
[2018-08-14 20:04] LABS: D-Dimer Quantitative (DVT/PE) < 0.27 FEU/ug/m (0.27-0.49)
[2018-08-14] MEDS: hydrOXYzine PAM 25 MG Capsule 50 MG PO (21:37)
== END 2018-08-14 22:15 | disposition home or self-care (01) ==
PROVIDERS: Emergency Provider Emergency Medicine
DX: R00.2 Palpitations (principal); R07.9 Chest pain, unspecified; F41.9 Anxiety disorder, unspecified; J44.9 Chronic obstructive pulmonary disease, unspecified
CPT/HCPCS: 71046; 80048; 84484; 85025; 85379; 93005; 94640; 99284; A4216

== ENCOUNTER → 2018-09-01 15:10 | Outpatient (CLI) | payer MEDICAID, SELFPAY ==
[2018-09-01 15:01] VITALS: BMI 22.9
--- NOTE | 2018-09-01 15:12 | RAD_ITS ---
STUDY: X-RAY - RIGHT SHOULDER REASON FOR EXAM: Shoulder strain/pain. TECHNIQUE: 3 view(s) of the shoulder. COMPARISON: Radiographs 10/06/2013. FINDINGS: Normal glenohumeral articulation. There is acromioclavicular arthrosis. Normal acromion. Normal humeral head and visualized proximal humerus. The soft tissue structures are unremarkable. Normal visualized pulmonary apex. RAD/Shoulder min 2 Views IMPRESSION: Acromioclavicular arthrosis. Electronically Signed: Gilmar Pearson MD at 13:45 EDT Tel , Service support ,
--- NOTE | 2018-09-01 15:12 | RAD_ITS ---
STUDY: X-RAY - CERVICAL SPINE REASON FOR EXAM: Female, 58 years old. Neck pain. TECHNIQUE: 7 view(s) of the cervical spine including lateral flexion and extension views were obtained. COMPARISON: Prior cervical spine x-ray report dated July 27, 2016. Images are not available. FINDINGS: Normal anterior atlantoaxial articulation. Normal odontoid process. There is reversal of the normal lordotic curve. There is limited flexion and extension with no abnormal motion. The patient has had anterior fusion with intervertebral disc prostheses from C4 to C7. There is intervertebral prostheses from C4 to C7 with fusion. There is anterior bony neural foraminal encroachment at C4-C7 bilaterally. There is diffuse uncovertebral and facet sclerosis. These findings were described on the prior study. The soft tissue structures are unremarkable. RAD/Cerv Spine Obl/Flex/Ext Comp IMPRESSION: Post fusion changes from C4 to C7, limited flexion and extension and anterior bony neural foraminal encroachment from C4 to C7. No acute abnormality. Electronically Signed: Madhav Machuca MD at 11:54 EDT , Service support ,
== END ==
PROVIDERS: Referring Provider Orthopaedic Surgery; Visit Provider Orthopaedic Surgery
DX: R52 Pain, unspecified (principal)
CPT/HCPCS: 72052; 73030

== ENCOUNTER 2018-10-22 06:35 | Emergency (ER) | payer MEDICAID, SELFPAY ==
[2018-09-01 15:01] VITALS: BMI 22.9
[2018-10-22 06:35] VITALS: BP 128/95; PULSE 122; RESP 20; TEMP 36.6; O2SAT 93; BMI 23.5
--- NOTE | 2018-10-22 07:08 | ED.VIS.HA ---
History of Present Illness Chief Complaint: Headache Informant: Patient Onset: Yesterday Context: Gradual Timing: Continuous Quality: Similar Prior Headaches, Throbbing Location: bifrontal Current Severity: Moderate Maximum Severity: Moderate Worsened by: light Associated Symptoms: Nausea, Vomiting, Blurred Vision, Photophobia. Negative for: Fever, Sore Throat, Sinus Pressure, Numbness Narrative: Patient states she has chronic migraine headaches that are associated with vomiting, but she also has vomiting at times when she does not have the headaches. This morning, she states she vomited 6 times just prior to arrival, felt like she was having trouble keeping any water down which brought her to the ER. She does have a headache right now, this 1 is been there since yesterday. She gets migraines almost every other day, very frequently, she has never been put on medication to prevent them or new that was a possibility. She has a neurologist, she states she follows with them because of some type of white matter disease and was told she might of had a TIA once. She has had no focal neurologic symptoms yesterday or today. She takes a baby aspirin daily. She denies any abdominal pain right now. She states she is in the process of seeing a doctor who did a lot of blood tests recently and trying to work-up some of her symptoms. - Past Medical History (1) COPD (chronic obstructive pulmonary disease) Status: Chronic (2) Peptic ulcer disease Status: Chronic Past Medical History - Allergies and Home Meds Allergies/Adverse Reactions: Allergies trazodone Allergy (Mild, Verified 10/22/18 06:38) leg cramps amoxicillin [From Augmentin] Allergy (Verified 10/22/18 06:38) Nausea clavulanic acid [From Augmentin] Allergy (Verified 10/22/18 06:38) Nausea naproxen [From Naprosyn] Adverse Reaction (Verified 10/22/18 06:38) Upset Stomach Primary Care Physician: Care Physician,No Primary [Primary Care Provider] - Surgical History: - - egd and colonoscopy in the past, multiple back surgeries Smoking Status: Current every day smoker Drugs: None - Family History Paternal Family History: Family History (Last Reviewed 05/26/18 @ 12:59 by Anita Cox) Other Arthritis Cancer Diabetes Hypertension Family History: Reports: No pertinent history Maternal Family History: Family History (Last Reviewed 05/26/18 @ 12:59 by Anita Cox) Other Arthritis Cancer Diabetes Hypertension Family History: Reports: No pertinent history Review of Systems General: Denies: Chills, Fever Cardiovascular: Denies: Chest pain, Palpitations Respiratory: Denies: Dyspnea, Cough Gastrointestinal: Reports: Nausea, Vomiting - no blood or coffee grounds. Denies: Abdominal pain, Diarrhea, Constipation, Melena, Hematochezia Musculoskeletal: Denies: Swelling, Extremity Pain Skin: Denies: Rash, Wounds Neurological: Reports: Headache. Denies: Weakness, Parasthesia, Numbness Physical Exam Vital Signs/Narrative: Vital Signs Temp Pulse Resp BP Pulse Ox 10/22/18 06:35 97.8 F 122 H 20 H 128/95 H 93 Inital Vital Signs reviewed: Yes General: Well nourished, Well developed, - - well-appearing, nad Head: NC, AT. Negative for: Vesicular Rash, Sinus Tenderness Eyes: Perrl, EOMI ENT: Moist mucous membranes, No rhinorrhea Neck: Supple, No Lymphadenopathy, Nontender, No Meningismus Cardiovascular: Regular rate, Regular rhythm, No murmurs Respiratory: No distress, CTA bilaterally, Chest nontender Abdomen: Soft, Nontender, Nondistended, Normal bowel sounds Skin: Normal color, No rash, No Trauma Neuro: Alert, Oriented x3, Cranial nerves II-XII grossly intact, Normal Strength, Normal Sensation, Normal DTR, Normal Gait Psychological: Normal affect, Normal Mood Diagnostic/Tx/Re-eval - Medical Decision Making I discussed with patient that solving chronic health issues can be difficult in the emergency department but I would be happy to treat her symptoms and hydrate her given her tachycardia for now, she agreed and thought that would be a good idea. She was given a liter fluid with IV Reglan, Toradol. Her heart rate is decreased already before the fluids are finished. She will be reevaluated and discharged if and when she is feeling better. She will follow-up with her PCP for lab results and further evaluation. ED Disposition - Plan for ED Patient: Disposition: Home or Assisted Living Diagnosis: Migraine headache, Recurrent vomiting Instructions: ED Headache Migraine Referrals: Doctor,Your [STAFF PHYSICIAN] - 2 Days
[2018-10-22] MEDS: Metoclopramide 10 MG/2 ML Vial 5 MG IV (07:14)
[2018-10-22] MEDS: 0.9% Normal Saline 1,000 ML 999 ML IV (07:14)
[2018-10-22] MEDS: Ketorolac 30 MG/ML Syringe IV (07:14)
[2018-10-22 07:15] VITALS: BP 115/95; PULSE 110; RESP 18; O2SAT 96
[2018-10-22 08:35] VITALS: BP 138/80; PULSE 99; RESP 18; O2SAT 99
== END 2018-10-22 08:38 | disposition home or self-care (01) ==
PROVIDERS: Emergency Provider Emergency Medicine
DX: G43.909 Migraine, unspecified, not intractable, without status migrainosus (principal); F17.200 Nicotine dependence, unspecified, uncomplicated; Z88.0 Allergy status to penicillin; J44.9 Chronic obstructive pulmonary disease, unspecified; Z87.11 Personal history of peptic ulcer disease; Z79.82 Long term (current) use of aspirin
CPT/HCPCS: 96361; 96374; 96375; 99283; J7030; A4216

== ENCOUNTER → 2018-10-24 | Outpatient (CLI) | payer MEDICAID, SELFPAY ==
[2018-10-22 06:35] VITALS: BMI 23.5
[2018-10-24 16:50] LABS: Vitamin D,25 Hydroxy 12.5 ng/mL (29.95-100.01)
== END | disposition home or self-care (01) ==
LOC: LAB 15:36
PROVIDERS: Referring Provider Nurse Practitioner Family; Visit Provider Nurse Practitioner Family
DX: E56.9 Vitamin deficiency, unspecified (principal)
CPT/HCPCS: 36415; 82306

== ENCOUNTER 2020-04-11 15:51 | Emergency (ER) | payer MEDICAID, SELFPAY ==
[2020-04-11 15:52] VITALS: BP 120/62; PULSE 99; RESP 18; TEMP 36.4; O2SAT 97; BMI 25.2
[2020-04-11 16:55] VITALS: O2SAT 96
--- NOTE | 2020-04-11 16:59 | EKG12_ITS ---
Test Reason : Blood Pressure : / mmHG Vent. Rate : 077 BPM Atrial Rate : 077 BPM P-R Int : 082 ms QRS Dur : 078 ms QT Int : 378 ms P-R-T Axes : 028 067 040 degrees QTc Int : 427 ms Sinus rhythm with short RI Abnormal ECG Confirmed by MICHAEL RAZO, MAEGAN ([id number]), department editor SANDY MIX ([id number]) on 04/15/2020 9:42:43 AM Referred By: MR Confirmed By:MAEGAN RODRIGUEZ MD
--- NOTE | 2020-04-11 17:20 | RAD_ITS ---
STUDY: X-RAY CHEST REASON FOR EXAM: Female, 59 years old. dyspnea on exertion TECHNIQUE: Frontal and lateral views of the chest. COMPARISON: 08/14/2018. FINDINGS: Normal lung volumes. Small left pleural effusion. Trace right pleural effusion. Mild atelectasis or less likely infiltrates in the lung bases. Normal size heart. Normal mediastinum and jose. Normal visualized pulmonary arteries. Normal visualized aortic arch and descending thoracic aorta. Normal visualized thoracic spine. Previous cervical spine surgery. Normal visualized ribs, clavicles, and shoulders. There is no demonstrated abnormality of the visualized soft tissue structures of the upper abdomen. RAD/Chest PA and Lateral IMPRESSION: Mild bilateral pleural effusions and atelectasis or infiltrate of the lung bases. Electronically Signed: Joshua Arvizu MD at 17:36 EST , Service support ,
[2020-04-11 17:27] LABS: Absolute Lymphocyte Count 1.18 X10^3/uL (0.83-4.51); Absolute Neutrophil Count 13.4 X10^3/uL (2.0-7.7); Basophil# 0.02 X10^3/uL; Basophil% 0.1 % (0-1); Hematocrit 38.6 % (37-47); Hemoglobin 12.6 g/dL (12.0-15.0); Lymphocyte # 1.18 X10^3/ul (4.0); Lymphocyte % 7.3 % (19-41); Mean Corp Hgb Conc 32.6 g/dL (32-36); Mean Corpuscular Hgb 32.6 pg (27.0-32.0); Mean Corpuscular Volume 99.7 fL (81-99); Mean Platelet Vol. 10.6 fl (6.2-12.0); Monocyte# 1.52 X10^3/uL; Monocyte% 9.4 % (0-10); NRBC Flagged by Analyzer 0 % (0-5); Neutrophil # 13.37 X10^3/uL (2.7-7.7); Neutrophil % 82.6 % (47-70); POSITIVE DIFFERENTIAL YES; Platelet Count 115 K/mm3 (150-450); RBC Distribution Width CV 15.2 % (11.6-14.6); RBC Distribution Width SD 56.3 fl (35.1-43.9); Red Blood Count 3.87 M/mm3 (4.2-5.4); White Blood Count 16.2 K/mm3 (4.4-11.0)
[2020-04-11 17:36] VITALS: BP 135/69; PULSE 76; RESP 17; O2SAT 100
--- NOTE | 2020-04-11 17:41 | ED.DCSUM_ITS ---
History of Present Illness Chief Complaint: Shortness of Breath Informant: Patient Narrative: Patient presenting for evaluation secondary to shortness of breath. Patient has an underlying history of COPD as well as hepatitis C. Patient states that she had a family member that tested positive for coronavirus around a month ago. Since then the patient states that she has been dealing with exertional dyspnea that she feels is associated with wheezing and chest tightness. The patient herself is actually had 2 coronavirus tests that have found to be negative. Patient does endorse that she has some nausea but no significant vomiting. She has mild amount of loose stools associated with this. No objective fevers, she does have some mild chills. No persistent chest pain associated with this. She has been admitted to the hospital recently, no recent antibiotic exposures or steroid use. She does state that she has some lower extremity edema but she has been dealing with that over the course of multiple months and she attributes that to her hepatitis C. She denies any underlying history of congestive heart failure. Review of systems otherwise negative. Past Medical History - Allergies and Home Meds Allergies/Adverse Reactions: Allergies trazodone Allergy (Mild, Verified 04/11/20 15:55) leg cramps naproxen [From Naprosyn] Adverse Reaction (Verified 04/11/20 15:55) Upset Stomach Primary Care Physician: Care Physician,No Primary [Primary Care Provider] - Prior records reviewed: Yes Past Medical History: - - COPD, hepatitis C Surgical History: - - egd and colonoscopy in the past, multiple back surgeries Lives: With Family Smoking Status: Current every day smoker - Family History Paternal Family History: Family History (Last Reviewed 05/26/18 @ 12:59 by Anita Cox) Other Arthritis Cancer Diabetes Hypertension Family History: Reports: No pertinent history Maternal Family History: Family History (Last Reviewed 05/26/18 @ 12:59 by Anita Cox) Other Arthritis Cancer Diabetes Hypertension Family History: Reports: No pertinent history Review of Systems General: Reports: Chills, Malaise Eyes: Denies: Visual changes - bilaterally, Diplopia ENT: Denies: Rhinorrhea, Sore throat Cardiovascular: Denies: Chest pain, Palpitations Respiratory: Reports: Dyspnea, Cough Gastrointestinal: Reports: Nausea Genitourinary: Denies: Dysuria, Hematuria, Frequency Musculoskeletal: Denies: Back pain, Extremity Pain Skin: Denies: Rash, Wounds Neurological: Denies: Headache, Weakness, Numbness Physical Exam Vital Signs/Narrative: Vital Signs Temp Pulse Resp BP Pulse Ox 04/11/20 17:36 76 17 135/69 H 100 04/11/20 15:52 97.5 F L 99 18 120/62 97 Inital Vital Signs reviewed: Yes General: Well nourished, Well developed, No Acute Distress Head: Normocephalic, Atraumatic Eyes: Perrl, EOMI ENT: Moist mucous membranes, No rhinorrhea Neck: Supple, Nontender Cardiovascular: Regular rate, Regular rhythm, No murmurs, - - 2+ radial pulses bilaterally symmetric Respiratory: No distress, CTA bilaterally, Chest nontender, - - Normal respiratory effort no retractions Abdomen: Soft, Nontender, Normal bowel sounds, - - Mild distention consistent with patient's history of hepatitis Back: Nontender, Normal Inspection Extremities: Nontender, Edema - +1 lower extremity pitting edema bilaterally symmetric Skin: Normal color, No rash Neurological: Alert, Oriented x3, Cranial nerves II-XII grossly intact, Normal Strength, Normal Sensation Psychological: Normal affect, Normal Mood Diagnostic/Tx/Re-eval Chest X-Ray - ED: 2 View, Read by ED Physician, Read by Radiologist, Right Effusion, Left Effusion Clinical Impression(s) from Imaging Studies Chest X-Ray 04/11/20 17:20 IMPRESSION: Mild bilateral pleural effusions and atelectasis or infiltrate of the lung bases. Electronically Signed: Joshua Arvizu MD at 17:36 EST , Service support , Laboratory Data 04/11/20 04/11/20 04/11/20 17:14 17:14 17:14 WBC 16.2 H RBC 3.87 L Hgb 12.6 Hct 38.6 MCV 99.7 H MCH 32.6 H MCHC 32.6 RDW Std Deviation 56.3 H RDW Coeff of Heath 15.2 H Plt Count 115 L MPV 10.6 Immature Gran % (Auto) 0.600 Neut % (Auto) 82.6 H Lymph % (Auto) 7.3 L Dolores % (Auto) 9.4 Eos % (Auto) 0.0 Baso % (Auto) 0.1 Absolute Neuts (auto) 13.4 H Absolute Lymphs (auto) 1.18 Nucleated RBC % 0 Differential Comment SEE COMMENT Diff Path Review May foll Toxic Granulation RARE Platelet Estimate SLT DEC RBC Morphology N CHROM Anisocytosis RARE Macrocytosis RARE Sodium 143 Potassium 3.4 L Chloride 111 H Carbon Dioxide 27.0 Anion Gap 5 BUN 20 H Creatinine 0.61 Estim Creat Clear Calc 101.41 Est GFR (MDRD) Af Amer 129 Est GFR (MDRD) Non-Af 106 BUN/Creatinine Ratio 32.7 H Glucose 130 H Calcium 8.4 L Troponin I 0.018 B-Natriuretic Peptide 125.4 H - EKG Initial EKG Interpretation: - - Sinus rhythm of [address] segments, normal T waves, normal intervals, no evidence of acute ischemia or arrhythmia. - Medical Decision Making Patient presenting for evaluation secondary to shortness of breath. Patient has stable vitals in the emergency department, she has had negative coronavirus testing recently, this was not reinitiated as she does not really seem to have a viral constellation of symptoms. Rather, she is complaining of some edema and has a history of hepatitis C some more of a cardiac versus hepatic versus heart failure work-up was performed. CBC demonstrates a leukocytosis although the patient tells me that currently she is on a course of steroids. Chemistry shows normal renal function, no significant electrolyte derangements. Troponin was negative. BNP was modestly elevated at 100. Chest x-ray by my personal review as well as radiology shows some atelectasis with bilateral infiltrates which is actually consistent with a prior chest x-ray that the patient had at the [facility]. Patient remained stable in the emergency department. Potentially the patient is dealing with an infectious etiology, although I am more suspicious that this has more to do with her hepatitis C, her abdominal distention, and her mild pleural effusions. Patient be placed on a course of doxycycline should this be infectious, but she was encouraged to follow-up with her [facility] physicians to continue having work-up for hepatitis C complications. I do not feel the patient requires admission. Patient was discharged in stable condition. ED Disposition - Plan for ED Patient: Disposition: Home or Assisted Living Diagnosis: Hepatitis C, Dyspnea, Pleural effusion Instructions: ED Effusion Pleural, ED Hepatitis Viral Type C, ED Dyspnea Prescriptions: Doxycycline 100 mg PO BID #20 cap Prescription Printed Additional Instructions: Follow-up with your physicians at the [facility] regarding your hepatitis C
[2020-04-11 17:50] LABS: Anion Gap 5 (5-15); BUN 20 mg/dL (7-18); BUN/Creat Ratio 32.7 RATIO (10-20); Calcium,Total 8.4 mg/dL (8.5-10.1); Chloride 111 mmol/L (98-107); Creatinine, Serum 0.61 mg/dL (0.55-1.02); EST Glomerular Filtration Rate 106 mL/min (>60); Est Glom Filt Rate - Afr Amer 129 mL/min (>60); Estimated Creatinine Clearance 101.41 ml/min; Glucose 130 mg/dL (74-106); Potassium 3.4 mmol/L (3.5-5.1); Sodium Level 143 mmol/L (136-145)
[2020-04-11 17:58] LABS: Differential Indicated SCAN CRITERIA MET
[2020-04-11 18:00] LABS: Anisocytosis RARE; Macrocytosis RARE; Platelet Estimate SLT DEC (ADEQ); Red Cell Morphology N CHROM NORMAL (NORM C&C); Toxic Granulation RARE
[2020-04-11 18:21] LABS: BNP,B-Type NATRIURETIC PEPTIDE 125.4 pg/mL (0-100)
[2020-04-11] MEDS: Doxycycline 100 MG CAPSULE PO (19:25)
[2020-04-11 19:27] VITALS: BP 135/74; PULSE 89; RESP 16; RESP 18; O2SAT 96
[2020-04-12 13:48] LABS: Pathologist Review Reviewed
== END 2020-04-11 19:49 | disposition home or self-care (01) ==
PROVIDERS: Emergency Provider Emergency Medicine
DX: J90 Pleural effusion, not elsewhere classified (principal); R06.00 Dyspnea, unspecified; B19.20 Unspecified viral hepatitis C without hepatic coma; J98.11 Atelectasis; J44.9 Chronic obstructive pulmonary disease, unspecified; F17.200 Nicotine dependence, unspecified, uncomplicated; Z82.49 Family history of ischemic heart disease and other diseases of the circulatory system; Z88.6 Allergy status to analgesic agent
CPT/HCPCS: 71046; 80048; 83880; 84484; 85025; 93005; 99284; A4216

== ENCOUNTER 2021-01-29 22:52 | Emergency (ER) | payer MEDICAID, SELFPAY ==
[2021-01-29 22:54] VITALS: BP 121/74; PULSE 118; RESP 17; TEMP 37.1; O2SAT 98; BMI 18.5
[2021-01-29 22:56] VITALS: BP 121/74; PULSE 118; RESP 17; TEMP 37.1; O2SAT 98
--- NOTE | 2021-01-30 00:03 | RAD_ITS ---
STUDY: X-RAY CHEST REASON FOR EXAM: Female, 60 years old. Cough TECHNIQUE: Portable, upright AP chest radiograph COMPARISON: 04/11/2020 FINDINGS: Drainage tube projects from the right over the mediastinum. Small to moderate right pleural effusion with overlying atelectasis. The left lung appears clear. Normal size heart. Normal mediastinum and jose. Normal visualized pulmonary arteries. Normal visualized aortic arch and descending thoracic aorta. Normal visualized thoracic spine. Normal visualized ribs, clavicles, and shoulders. There is no demonstrated abnormality of the visualized soft tissue structures of the upper abdomen. RAD/Chest 1 View (Portable) IMPRESSION: Right pleural effusion with overlying atelectasis. Electronically Signed: Ricardo Brewster MD at 1:06 EDT Tel , Service support ,
--- NOTE | 2021-01-30 00:04 | ED.VIS.DYS ---
HPI History of Present Illness Chief Complaint: Cough Narrative Narrative: Patient presenting with a cough since the beginning of the month which would be about 9 days. Patient states she has not had a fever that she knows of. She does not have body aches or chills. She has had chest aching for the last 24 hours constantly as well as a sore throat. Patient denies any cardiac history. She states that she has a Pleurx catheter in her lung which she drains daily. She states she has fluid on her lungs because of her hep C. Patient lives with her granddaughter who is positive for COVID-19. She drove in the car with her to come be evaluated. Patient states that she was trying to be careful at home but does admit to sleeping with her granddaughter when she was not feeling good. After that time her granddaughter's test came back positive for COVID-19. The patient herself states that she has had a cough on and off for weeks. She is also had rhinorrhea. PFSH [facility] Medical History Abnormal bruising Arthritis Back pain Back problem Cirrhosis of liver Hyperlipidemia Incontinence Knee pain Pneumonia Seasonal allergies Shoulder pain ulcers Home Medications cyclobenzaprine 10 mg PO TID PRN PRN 08/14/18 [History Last Taken Unknown] hydroxyzine pamoate 2 cap PO Q4H PRN #24 capsule 08/14/18 [Rx Last Taken Unknown] pantoprazole 20 mg PO DAILY 08/14/18 [History Last Taken 04/11/20] sertraline 50 mg PO DAILY 10/22/18 [History Last Taken 04/11/20] doxycycline monohydrate 100 mg PO BID #20 cap 04/11/20 [Rx Last Taken Unknown] Allergy/AdvReac Type Severity Reaction Status Date / Time trazodone Allergy Mild leg cramps Verified 01/29/21 22:57 naproxen [From Naprosyn] AdvReac Upset Verified 01/29/21 22:57 Stomach Family History Other Arthritis Cancer Diabetes Hypertension Surgical History H/O colonoscopy H/O: hysterectomy History of back surgery History of back surgery History of esophagogastroduodenoscopy (EGD) neck fusion S/P cholecystectomy S/P shoulder surgery upper endoscopy Social History Smoking Status: Current every day smoker tobacco type: cigarettes alcohol intake: never ROS ROS ED Constitutional Constitutional ED: Denies chills or fever(s) Eyes Eyes: Denies blurry vision or change in vision ENT ENT ED: Reports sore throat; Denies rhinorrhea Cardiovascular Cardiovascular: Reports chest pain and racing heartbeat Respiratory/Chest Respiratory/Chest: Reports cough and dyspnea Gastrointestinal Gastrointestinal: Denies abdominal pain, constipation, diarrhea, nausea or vomiting Genitourinary Genitourinary ED: Denies dysuria or hematuria Musculoskeletal Musculoskeletal: Denies arthralgias, back pain, myalgias or neck pain Integumentary Denies Abrasions or rash Neurologic Neurologic: Denies headache(s) or paresthesias EXAM Physical Exam Const Vital Signs: 01/29/21 22:54 01/29/21 22:56 01/29/21 23:46 Temperature 98.8 F 98.8 F Temperature Source Temporal Temporal Pulse Rate 118 H 118 H Respiratory Rate 17 17 Respiratory Effort Normal Respiratory Pattern Normal Blood Pressure 121/74 H 121/74 H Blood Pressure Mean 89 89 Pulse Ox 98 98 Oxygen Delivery Method Room Air Room Air Room Air 01/30/21 01:21 Temperature Temperature Source Pulse Rate 85 Respiratory Rate 14 Respiratory Effort Respiratory Pattern Blood Pressure 98/66 Blood Pressure Mean 76 Pulse Ox 99 Oxygen Delivery Method Room Air Positive well nourished General Appearance ED: NAD; Negative for pallor HEENT Reports moist mucous membranes atraumatic Eyes PERRL and EOMs intact bilaterally Neck no lymphadenopathy and supple Resp normal respiratory effort and clear to auscultation bilaterally Cardio regular rate and regular rhythm GI non-tender and non-distended Palpation: soft Neuro oriented x3, CN's II-XII intact bilaterally and no sensory deficits noted Sensorium / Orientation: alert Motor Exam: strength 5/5 throughout Psych mental status grossly normal Thought Process: normal thought process Skin General Skin Exam: Negative for jaundice or pallor Lesions: no lesions Rashes: no rashes MDM MDM MDM Narrative Medical decision making narrative: Patient presenting with 24 hours of constant chest pain which feels like aching. She also has a sore throat. She admits to coughing for weeks. She has not had a fever, chills, body aches. She is living with her granddaughter who has COVID-19. She is not vaccinated. Patient admits to sleeping with her granddaughter prior to her Covid testing coming back. She states that since that time she has been quarantined. She did drive into the ER today with her in the same car. Given her symptoms I did test her for Covid and she was positive. On my interpretation her chest x-ray shows a right pleural effusion which the patient knows of and has a catheter placed for drainage of this at home. She is leukopenic and lymphopenic. Troponin is negative. Renal function and electrolytes are normal. Procalcitonin negative. Patient has elevated D-dimer at 1.7 and had a CTA of her chest which shows no pulmonary emboli or dissections. It does show a right pleural effusion which is known. Patient's vitals are currently stable. She is not tachycardic, tachypneic, hypoxic. She is not requiring supplemental oxygen. I cannot refer her for monoclonal antibodies because I do not know when the time of her onset of symptoms was and whether or not she actually gave it to her granddaughter or her granddaughter given to her. Patient is counseled to monitor her vital signs at home for severe symptoms. She is counseled to return for any new or worsening symptoms. Patient is discharged home in stable condition. Impression: 1. COVID-19 pneumonitis Lab Data Attestation: I reviewed the patient's lab results. Labs: Laboratory Results - last 24 hr 01/30/21 01/30/21 01/30/21 00:54 00:54 00:54 WBC 3.8 L RBC 4.27 Hgb 13.3 Hct 41.3 MCV 96.7 MCH 31.1 MCHC 32.2 RDW Std Deviation 50.4 H RDW Coeff of Heath 14.1 Plt Count 74 L MPV 11.1 Immature Gran % (Auto) 0.000 Neut % (Auto) 59.4 Lymph % (Auto) 20.4 Archuleta % (Auto) 13.8 H Eos % (Auto) 6.1 H Baso % (Auto) 0.3 Absolute Neuts (auto) 2.3 Absolute Lymphs (auto) 0.77 L Nucleated RBC % 0 D-Dimer Quant (PE/DVT) 1.87 H* Sodium Potassium Chloride Carbon Dioxide Anion Gap BUN Creatinine Estim Creat Clear Calc Est GFR (MDRD) Af Amer Est GFR (MDRD) Non-Af BUN/Creatinine Ratio Glucose Lactic Acid Calcium Total Bilirubin AST ALT Alkaline Phosphatase Troponin I High Sens Total Protein Albumin Globulin Albumin/Globulin Ratio Procalcitonin 0.09 01/30/21 01/30/21 00:54 00:54 WBC RBC Hgb Hct MCV MCH MCHC RDW Std Deviation RDW Coeff of Heath Plt Count MPV Immature Gran % (Auto) Neut % (Auto) Lymph % (Auto) Archuleta % (Auto) Eos % (Auto) Baso % (Auto) Absolute Neuts (auto) Absolute Lymphs (auto) Nucleated RBC % D-Dimer Quant (PE/DVT) Sodium 138 Potassium 4.0 Chloride 110 H Carbon Dioxide 26.0 Anion Gap 2 L BUN 18 Creatinine 0.49 L Estim Creat Clear Calc 107.99 Est GFR (MDRD) Af Amer 168 Est GFR (MDRD) Non-Af 139 BUN/Creatinine Ratio 37.0 H Glucose 89 Lactic Acid 1.3 Calcium 8.1 L Total Bilirubin 0.50 AST 46 H ALT 31 Alkaline Phosphatase 115 Troponin I High Sens 8 Total Protein 5.1 L Albumin 2.2 L Globulin 2.9 Albumin/Globulin Ratio 0.8 L Procalcitonin Radiography Diagnostic Testing: Radiology Impression Chest X-Ray 01/30/21 00:03 IMPRESSION: Right pleural effusion with overlying atelectasis. Electronically Signed: Ricardo Brewster MD at 1:06 EDT Tel , Service support , Chest CTA 01/30/21 01:37 IMPRESSION: Moderate size pleural effusion with mild overlying atelectasis. Normal CTA chest examination, without a demonstrated pulmonary embolism or arterial dissection. Electronically Signed: Ricardo Brewster MD at 2:32 EDT Tel , Service support , Discharge Plan Triage Chief Complaint: Cough ED Provider: Anjum Baldwin Dx/Rx/DC Orders Instructions: Coronavirus Disease 2019 (COVID-19): Caring for Yourself or Others, ED Chest Pain, Noncardiac Prescriptions: No Action cyclobenzaprine 10 MG tablet 10 mg PO TID PRN PRN (Reason: Pain) RF: 0 pantoprazole 20 MG tablet 20 mg PO DAILY RF: 0 hydroxyzine pamoate 25 MG capsule 2 cap PO Q4H PRN (Reason: Anxiety) Qty: 24 RF: 0 sertraline 50 MG tablet 50 mg PO DAILY RF: 0 doxycycline monohydrate 100 MG capsule 100 mg PO BID Qty: 20 RF: 0 Primary Care Provider: Cem Carson Referrals: Cem Carson MD [Primary Care Provider] - Disposition Disposition: Home, Self Care
[2021-01-30 01:07] LABS: Absolute Lymphocyte Count 0.77 X10^3/uL (0.83-4.51); Absolute Neutrophil Count 2.3 X10^3/uL (2.0-7.7); Basophil# 0.01 X10^3/uL; Basophil% 0.3 % (0-1); Eosinophil# 0.23 X10^3/uL; Eosinophils% 6.1 % (0-5); Hematocrit 41.3 % (37-47); Hemoglobin 13.3 g/dL (12.0-15.0); Lymphocyte # 0.77 X10^3/ul (0.83-4.51); Lymphocyte % 20.4 % (19-41); Mean Corp Hgb Conc 32.2 g/dL (32-36); Mean Corpuscular Hgb 31.1 pg (27.0-32.0); Mean Corpuscular Volume 96.7 fL (81-99); Mean Platelet Vol. 11.1 fl (6.2-12.0); Monocyte# 0.52 X10^3/uL; Monocyte% 13.8 % (0-10); NRBC Flagged by Analyzer 0 % (0-5); Neutrophil # 2.25 X10^3/uL (2.7-7.7); Neutrophil % 59.4 % (47-70); POSITIVE COUNT YES; Platelet Count 74 K/mm3 (150-450); RBC Distribution Width CV 14.1 % (11.6-14.6); RBC Distribution Width SD 50.4 fl (35.1-43.9); Red Blood Count 4.27 M/mm3 (4.2-5.4); White Blood Count 3.8 K/mm3 (4.4-11.0)
[2021-01-30 01:10] LABS: Differential Indicated SCAN CRITERIA MET
[2021-01-30 01:21] VITALS: BP 98/66; PULSE 85; RESP 14; O2SAT 99
[2021-01-30 01:28] LABS: D-Dimer Quantitative (DVT/PE) 1.87 FEU/ug/m (0.27-0.49)
[2021-01-30 01:29] LABS: ALB/GLOB Ratio 0.8 RATIO (0.9-2.4); AST(SGOT) 46 U/L (15-37); Alanine Aminotransfer ALT/SGPT 31 U/L (13-56); Albumin, Serum 2.2 g/dL (3.2-5.0); Alkaline Phosphatase 115 U/L (45-117); Anion Gap 2 (5-15); BUN 18 mg/dL (7-18); Calcium,Total 8.1 mg/dL (8.5-10.1); Chloride 110 mmol/L (98-107); Creatinine, Serum 0.49 mg/dL (0.55-1.02); EST Glomerular Filtration Rate 139 mL/min (>60); Est Glom Filt Rate - Afr Amer 168 mL/min (>60); Estimated Creatinine Clearance 107.99 ml/min; Globulin 2.9 g/dL (2.2-4.2); Glucose 89 mg/dL (74-106); Protein, Total 5.1 g/dL (6.4-8.2); Sodium Level 138 mmol/L (136-145); Troponin-I HS 8 pg/mL (3.0-54.0)
[2021-01-30 01:33] LABS: Lactic Acid 1.3 mmol/L (0.4-1.9); Procalcitonin 0.09 ng/mL (0.00-0.09)
--- NOTE | 2021-01-30 01:37 | CT_ITS ---
STUDY: CTA CHEST REASON FOR EXAM: Female, 60 years old. Dyspnea RADIATION DOSAGE (If Supplied By Facility): CTDIvol = ( 6.17 ) mGy, DLP = ( 179.30 ) mGycm TECHNIQUE: The examination was performed with the intravenous administration of IV 75mL [id number]-[id number]. Post-processing of the angiographic images was performed, with multiplanar reformation and 3D reconstruction. Individualized dose optimization techniques were used for this CT. COMPARISON: None. FINDINGS: Normal enhancement of the main pulmonary artery and right and left pulmonary arteries. Normal enhancement of the bilateral peripheral pulmonary arteries. There is no demonstrated pulmonary embolism. Normal thoracic aorta and visualized great vessels. There is no demonstrated aortic dissection. Normal heart and pericardium. Normal mediastinum. Normal hilar regions. Normal visualized trachea and bronchi. The lungs are hyper expanded, with flattening of the hemidiaphragms. Emphysematous lungs. Moderate size pleural effusion with mild overlying atelectasis. Small bore right pleural drain terminates near the aortic arch. Normal chest wall structures. There are degenerative changes of thoracic spine. There is a diffuse contour abnormality of the liver consistent with cirrhotic changes. CT/CTA Chest W/WO Contrast IMPRESSION: Moderate size pleural effusion with mild overlying atelectasis. Normal CTA chest examination, without a demonstrated pulmonary embolism or arterial dissection. Electronically Signed: Ricardo Brewster MD at 2:32 EDT Tel , Service support ,
[2021-01-30 02:51] VITALS: PULSE 87; RESP 17; O2SAT 98
== END 2021-01-30 02:59 | disposition home or self-care (01) ==
PROVIDERS: Emergency Provider Student in an Organized Health Care Education/Training Program; PCP Family Medicine
DX: U07.1 COVID-19 (principal); J12.82 Pneumonia due to coronavirus disease 2019; B19.20 Unspecified viral hepatitis C without hepatic coma; E78.5 Hyperlipidemia, unspecified; J90 Pleural effusion, not elsewhere classified; F17.210 Nicotine dependence, cigarettes, uncomplicated; K74.60 Unspecified cirrhosis of liver; Z79.1 Long term (current) use of non-steroidal anti-inflammatories (NSAID); Z79.899 Other long term (current) drug therapy
CPT/HCPCS: 71045; 71275; 80053; 83605; 84145; 84484; 85025; 85379; 87426; 99284; Q9967; A4216

== ENCOUNTER 2021-07-16 13:54 | Inpatient (IN) | payer MEDICAID, SELFPAY ==
[2021-07-16 13:57] VITALS: BP 135/78; PULSE 95; RESP 20; TEMP 36.4; O2SAT 98; BMI 19.1
[2021-07-16 14:33] LABS: Absolute Lymphocyte Count 0.99 X10^3/uL (0.83-4.51); Absolute Neutrophil Count 3.4 X10^3/uL (2.0-7.7); Basophil# 0.03 X10^3/uL; Basophil% 0.6 % (0-1); Eosinophil# 0.29 X10^3/uL; Eosinophils% 5.5 % (0-5); Hematocrit 34.9 % (37-47); Hemoglobin 11.8 g/dL (12.0-15.0); Lymphocyte # 0.99 X10^3/ul (0.83-4.51); Lymphocyte % 18.8 % (19-41); Mean Corp Hgb Conc 33.8 g/dL (32-36); Mean Corpuscular Hgb 31.1 pg (27.0-32.0); Mean Corpuscular Volume 92.1 fL (81-99); Monocyte# 0.59 X10^3/uL; Monocyte% 11.2 % (0-10); NRBC Flagged by Analyzer 0 % (0-5); Neutrophil # 3.35 X10^3/uL (2.7-7.7); Neutrophil % 63.7 % (47-70); Platelet Count 110 K/mm3 (150-450); RBC Distribution Width CV 13.9 % (11.6-14.6); RBC Distribution Width SD 47.2 fl (35.1-43.9); Red Blood Count 3.79 M/mm3 (4.2-5.4); White Blood Count 5.3 K/mm3 (4.4-11.0)
[2021-07-16] MEDS: Morphine 4 MG/ML Syringe IV ×3 (14:35→22:05)
[2021-07-16] MEDS: Ondansetron 4 MG/2 ML Vial IV (14:35)
--- NOTE | 2021-07-16 14:35 | RAD_ITS ---
STUDY: X-RAY - PELVIS AND RIGHT HIP REASON FOR EXAM: Female, 60 years old. Pain, fall TECHNIQUE: 3 views of the pelvis and hip. COMPARISON: Comparison is made with prior study dated 08/08/2018. FINDINGS: There is a non-specific bowel gas pattern. Normal visualized soft tissue structures. Normal bilateral iliac wings, sacroiliac joints and visualized sacrum. Normal bilateral superior and inferior pubic rami. Normal pubic symphysis. Normal bilateral ischial tuberosities. There is evidence of a transverse subcapital fracture of the proximal right femur with impaction. Normal acetabulum. There is mild articular joint space narrowing of the hip. There is evidence of a femoral acetabular impingement of the right hip joint. Femoral acetabular attachment of the left hip joint. RAD/HIP, UNI W/ Pelvis 2-3 Views IMPRESSION: Transverse subcapital fracture with impaction in the proximal right femur. 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 Electronically Signed: Daniel Mason MD at 15:13 EST ,
--- NOTE | 2021-07-16 14:36 | EX.ED.GENINJ ---
HPI History of Present Illness Chief Complaint: Fall Informant: patient Narrative Narrative: Patient states that she woke up about 2 AM. She was going to the kitchen. But she felt a little disoriented because she just woke up. She walked in the room and fell. She states she was not syncopal. She just bumped her head on a counter area and fell to the ground. She never lost consciousness at any time. She has no headache. She is not on blood thinners. She fell directly on her right hip. She states the only thing that hurts is her right hip. She has some chronic back pain but it is not a big issue and its not bothering her now. She was not able to get up and move. She was on the ground all night. She was able to get her granddaughter up this morning who then called and brought her in. [facility] Medical History Abnormal bruising Arthritis Back pain Back problem Cirrhosis of liver Hyperlipidemia Incontinence Knee pain Pneumonia Seasonal allergies Shoulder pain ulcers Home Medications cyclobenzaprine 10 mg PO TID PRN PRN 08/14/18 [History Last Taken Unknown] hydroxyzine pamoate 2 cap PO Q4H PRN #24 capsule 08/14/18 [Rx Last Taken Unknown] pantoprazole 20 mg PO DAILY 08/14/18 [History Last Taken 04/11/20] sertraline 50 mg PO DAILY 10/22/18 [History Last Taken 04/11/20] doxycycline monohydrate 100 mg PO BID #20 cap 04/11/20 [Rx Last Taken Unknown] Allergy/AdvReac Type Severity Reaction Status Date / Time trazodone Allergy Mild leg cramps Verified 07/16/21 14:01 naproxen [From Naprosyn] AdvReac Upset Verified 07/16/21 14:01 Stomach Family History Other Arthritis Cancer Diabetes Hypertension Surgical History H/O colonoscopy H/O: hysterectomy History of back surgery History of back surgery History of esophagogastroduodenoscopy (EGD) neck fusion S/P cholecystectomy S/P shoulder surgery upper endoscopy Social History Smoking Status: Former smoker alcohol intake: never ROS ROS ED Constitutional Constitutional ED: Denies chills or fever(s) Eyes Eyes: Denies blurry vision or change in vision ENT ENT ED: Denies rhinorrhea or sore throat Cardiovascular Cardiovascular: Denies chest pain or palpitations Respiratory/Chest Respiratory/Chest: Denies cough or dyspnea Gastrointestinal Gastrointestinal: Denies abdominal pain, diarrhea, nausea or vomiting Genitourinary Genitourinary ED: Denies dysuria or hematuria Musculoskeletal Musculoskeletal: Reports arthralgias Integumentary Denies rash Neurologic Neurologic: Denies headache(s), paresthesias or weakness Endocrine Endocrinology: Denies polydipsia or polyuria Hematologic/Lymphatic Hematologic/Lymphatic: Denies easy bleeding or easy bruising Allergic/Immunologic Allergic/Immunologic ED: Denies urticaria EXAM Physical Exam Const Vital Signs: 07/16/21 13:57 07/16/21 14:02 Temperature 97.5 F L Temperature Source Oral Pulse Rate 95 Respiratory Rate 20 H Respiratory Effort Normal Respiratory Depth Normal Respiratory Pattern Normal Blood Pressure 135/78 H Blood Pressure Mean 97 Pulse Ox 98 Oxygen Delivery Method Room Air Positive well nourished and well developed Constitutional Narrative: Patient is awake alert no acute distress. General Appearance ED: well developed and NAD HEENT HEENT Narrative: I see no sign of contusion or abrasion or injury on her head or scalp. atraumatic Neck full ROM Chest Wall inspection of chest normal Resp normal respiratory effort and clear to auscultation bilaterally Cardio regular rhythm and no murmurs Rate: regular rate GI normal to inspection, nondistended, normoactive bowel sounds and non-tender Palpation: soft Extremity Extremity Narrative: There is a contusion over by the right hip. There does not appear to be any shortening but she likes keeping her hips flexed up. No pelvic bone tenderness or pain with compression of the pelvis. Neuro oriented x3 Sensorium / Orientation: alert Psych mental status grossly normal Skin Skin Narrative: Contusion right hip. Wounds: wounds noted MDM MDM MDM Narrative Medical decision making narrative: Blood work shows minimal anemia at 11.8. White count is normal. Platelets are just slightly low. Electrolytes show no marked abnormalities. CPK is normal. Hip x-rays show impacted right subcapital fracture. I discussed case with Dr. Antonio Reddy. Plan will be admission. I explained the results to the patient. I have hospitalist on page. Lab Data Attestation: I reviewed the patient's lab results. Labs: Laboratory Results - last 24 hr 07/16/21 07/16/21 07/16/21 14:20 14:20 14:20 WBC 5.3 RBC 3.79 L Hgb 11.8 L Hct 34.9 L MCV 92.1 MCH 31.1 MCHC 33.8 RDW Std Deviation 47.2 H RDW Coeff of Heath 13.9 Plt Count 110 L MPV 10.0 Immature Gran % (Auto) 0.200 Neut % (Auto) 63.7 Lymph % (Auto) 18.8 L [place] % (Auto) 11.2 H Eos % (Auto) 5.5 H Baso % (Auto) 0.6 Absolute Neuts (auto) 3.4 Absolute Lymphs (auto) 0.99 Nucleated RBC % 0 Sodium 141 Potassium 3.5 Chloride 114 H Carbon Dioxide 21.0 Anion Gap 6 BUN 13 Creatinine 0.52 L Estim Creat Clear Calc 105.19 Est GFR (MDRD) Af Amer 155 Est GFR (MDRD) Non-Af 128 BUN/Creatinine Ratio 25.0 H Glucose 82 Calcium 8.6 Total Creatine Kinase 82 Radiography Diagnostic Testing: Clinical Impression(s) from Imaging Studies Hip/Pelvis X-Ray 07/16/21 14:35 IMPRESSION: Transverse subcapital fracture with impaction in the proximal right femur. 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 Electronically Signed: Daniel Mason MD at 15:13 EST , Discharge Plan Dx/Rx/DC Orders Clinical Impression: Closed subcapital fracture of neck of right femur, Fall at home Disposition Disposition: Acute Care Hospital [facility]
[2021-07-16 14:45] LABS: Anion Gap 6 (5-15); BUN 13 mg/dL (7-18); Calcium,Total 8.6 mg/dL (8.5-10.1); Chloride 114 mmol/L (98-107); Creatinine, Serum 0.52 mg/dL (0.55-1.02); EST Glomerular Filtration Rate 128 mL/min (>60); Est Glom Filt Rate - Afr Amer 155 mL/min (>60); Estimated Creatinine Clearance 105.19 ml/min; Glucose 82 mg/dL (74-106); Potassium 3.5 mmol/L (3.5-5.1); Sodium Level 141 mmol/L (136-145)
[2021-07-16 14:59] LABS: CPK Total, Creatine Kinase 82 U/L (26-192)
--- NOTE | 2021-07-16 16:09 | PCM.HP.STD ---
HPI - General General Date of Admission: 07/16/21 Date of Service: 07/16/21 Chief Complaint: Fall, right hip pain. HPI Narrative The patient is a 60 y/o F w/ PMHx: Anxiety and Depression, Chronic back pain, Chronic liver cirrhosis unclear type, Chronic thrombocytopenia secondary to underlying liver disease, COPD w/ Former tobacco use, GERD w/ Hx PUD who presents to the [facility] ED on 07/16/21 with history of mechanical fall following getting up in the middle the night at approximately 2 AM while going to the kitchen with no loss of consciousness unfortunately bumping her head on the counter and falling to the ground with no headache or chronic blood thinners with intractable right hip pain following secondary to a direct hit upon her fall with inability to get up or ambulate requiring her to lay on the ground all night until she was finally able to get a hold of her granddaughter who was able to help transition her to the ED for evaluation. She rates pain 10 out of 10 in severity. She does live with her granddaughter who is 17. She denies any lightheadedness, dizziness, neck or head pain, vision changes and notes that she did not hit her head hard when she fell. Work-up in the ED included T 97.5, heart 95, BP 135/70, respiratory rate 20, 98% on room air, CBC with WC 5.3, hemoglobin 11.8, platelet 110 without marked shift, BMP with chloride 114, BUN/creatinine 13/0.52, TCK 82, plain film of the right hip and pelvis with transverse subcapital fracture with impaction of the proximal right femur with femoral acetabular impingement of both hip joints, EKG as well as chest x-ray pending upon evaluation. In the ED patient ministered morphine and Zofran therapy. ED discussed case with Dr. Reddy with planned OR 07/17/21. [facility] Medical History (Updated 07/16/21 @ 16:[address] Cassandra Wang MD) Arthritis Back pain Cirrhosis of liver COPD (chronic obstructive pulmonary disease) Hyperlipidemia Peptic ulcer disease Seasonal allergies Home Medications cyclobenzaprine 10 mg PO TID PRN PRN 08/14/18 [History Last Taken Unknown] albuterol sulfate 2 inh INHALATION Q4H PRN 07/16/21 [History Last Taken 07/15/21] meloxicam 15 mg PO DAILY 07/16/21 [History Last Taken 1 Week Ago ~07/09/21] pantoprazole 40 mg PO DAILY 07/16/21 [History Last Taken 1 Week Ago ~07/09/21] Allergy/AdvReac Type Severity Reaction Status Date / Time trazodone Allergy Mild leg cramps Verified 07/16/21 14:01 naproxen [From Naprosyn] AdvReac Upset Verified 07/16/21 14:01 Stomach Family History (Updated 07/16/21 @ 16:[address] Cassandra Wang MD) Mother Thyroid disorder Aunt Cancer Arthritis Diabetes Hypertension other (Patient states she does not know her father nor any paternal family history.) Surgical History H/O colonoscopy H/O: hysterectomy History of back surgery History of back surgery History of esophagogastroduodenoscopy (EGD) neck fusion S/P cholecystectomy S/P shoulder surgery upper endoscopy Social History (Updated 07/16/21 @ 16:[address] Cassandra Wang MD) household members: other details: Her granddaughter lives with her (17 years old). Smoking Status: Former smoker how long ago did patient quit smoking: Quit 07/2020, smokedage 28 until quit, ~ 1/2 ppd. alcohol intake: never substance use type: does not use ROS ROS Narrative Admission Review of Systems: CONSTITUTIONAL: No weight loss, fever, chills, + weakness or fatigue. HEENT: Eyes: No visual loss, blurred vision, double vision or yellow sclerae. Ears, Nose, Throat: No hearing loss, sneezing, congestion, runny nose or sore throat. SKIN: No rash or itching, lesions, wounds. CARDIOVASCULAR: No chest pain, chest pressure or chest discomfort, palpitations, edema, orthopnea, syncopal events. RESPIRATORY: No shortness of breath, cough or sputum, wheezing, hemoptysis. GASTROINTESTINAL: No anorexia, nausea, vomiting or diarrhea, abdominal pain, melena, BRBPR. GENITOURINARY: No dysuria, frequency, urgency or retention. NEUROLOGICAL: No headache, dizziness, syncope, paralysis, ataxia, numbness or tingling in the extremities, focal weakness, change in bowel or bladder control, seizure. MUSCULOSKELETAL: + muscle, back pain, joint pain or stiffness. HEMATOLOGIC: + anemia, bleeding or bruising. LYMPHATICS: No enlarged nodes. No history of splenectomy. PSYCHIATRIC: No history of depression or anxiety. ENDOCRINOLOGIC: No reports of sweating, cold or heat intolerance. No polyuria or polydipsia. ALLERGIES: No history of asthma, hives, eczema or rhinitis. Vital Signs Vital Signs Vital Signs: 07/16/21 13:57 07/16/21 14:02 Temperature 97.5 F L Temperature Source Oral Pulse Rate 95 Respiratory Rate 20 H Respiratory Effort Normal Respiratory Depth Normal Respiratory Pattern Normal Blood Pressure 135/78 H Blood Pressure Mean 97 Pulse Ox 98 Oxygen Delivery Method Room Air Weight Weight: 126 lb 1.671 oz Body Mass Index (BMI) 19.1 Physical Exam Narrative Physical Examination: General: Awake, alert, oriented x 3 and cooperative, seated upright in the ED bed, holding her knees up in the position, notes pain severe with any movement, 10 out of 10. Skin: Normal color, normal turgor, no icterus, no cyanosis. HEENT: AT/NC, EOMI, PERRLA, mildly dry MM, no carotid bruits or JVD noted. Lungs: Diffusely diminished, greater bases, appropriate effort, no rales, ronchi or wheezing. Heart: Currently regular rate and rhythm; no gallop, rub audible. Abdomen: Soft, center habitus, NTTP, ND, normal BS, no marked HSM. Extremities: No cyanosis, clubbing, or edema, peripheral pulses intact, pain elicited with any movement of the lower extremities. Neurological: Patient awake, alert, oriented as noted, cognitive function intact; pupils equally reactive to light and accommodation, cranial nerves II-XII grossly normal, limited lower extremity movement secondary to fall with right hip fracture, strength accordingly severely global decreased, sensation remains intact. Psychiatric: Affect appears uncomfortable, no acute evidence of depressive or anxiety feelings. Results Lab / Micro Data Result Diagrams: 07/16/21 14:20 07/16/21 14:20 Labs: Laboratory Results - last 24 hr 07/16/21 14:20: WBC 5.3, RBC 3.79 L, Hgb 11.8 L, Hct 34.9 L, MCV 92.1, MCH 31.1, MCHC 33.8, RDW Std Deviation 47.2 H, RDW Coeff of Heath 13.9, Plt Count 110 L, MPV 10.0, Immature Gran % (Auto) 0.200, Neut % (Auto) 63.7, Lymph % (Auto) 18.8 L, [place] % (Auto) 11.2 H, Eos % (Auto) 5.5 H, Baso % (Auto) 0.6, Absolute Neuts (auto) 3.4, Absolute Lymphs (auto) 0.99, Nucleated RBC % 0 07/16/21 14:20: Sodium 141, Potassium 3.5, Chloride 114 H, Carbon Dioxide 21.0, Anion Gap 6, BUN 13, Creatinine 0.52 L, Estim Creat Clear Calc 105.19, Est GFR (MDRD) Af Amer 155, Est GFR (MDRD) Non-Af 128, BUN/Creatinine Ratio 25.0 H, Glucose 82, Calcium 8.6 07/16/21 14:20: Total Creatine Kinase 82 Radiology Impression Hip/Pelvis X-Ray 07/16/21 14:35 IMPRESSION: Transverse subcapital fracture with impaction in the proximal right femur. 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 Electronically Signed: Daniel Mason MD at 15:13 EST Reading Location ID and State: [facility] / [place] , Service support , Assessment & Plan Assessment/Plan (1) Closed subcapital fracture of neck of right femur: QUALIFIERS: Encounter type: initial encounter Qualified Code(s): S72.011A - Unspecified intracapsular fracture of right femur, initial encounter for closed fracture PLAN: The patient is a 60 y/o F w/ PMHx: Anxiety and Depression, Chronic back pain, Chronic liver cirrhosis unclear type, Chronic thrombocytopenia secondary to underlying liver disease, COPD w/ Former tobacco use, GERD w/ Hx PUD who presents to the [facility] ED on 07/16/21 with history of mechanical fall following getting up in the middle the night at approximately 2 AM while going to the kitchen with no loss of consciousness unfortunately bumping her head on the counter and falling to the ground with no headache or chronic blood thinners with intractable right hip pain following secondary to a direct hit upon her fall. #1. General debility, R hip pain s/p mechanical fall w/ transverse subcapital fracture with impaction of the proximal right femur: Plain film noting transverse subcapital fracture with impaction of the proximal right femur with femoral acetabular impingement of both hip joints. Orthopedic surgery consulted from ED. Will admit to [facility], maintain NPO after midnight, continue gentle IVFs, contreras placement, monitor I/Os, frequent positioning, fall precautions, PRN pain, PRN anti-emetic regimen. PT/OT following operative intervention. CM consulted for discharge planning. NSQIP with average to below average risk perioperatively given underlying history although do suspect mild increased risk given underlying chronic thrombocytopenia with unclear type of cirrhotic disease. LFTs are pending as well as coags. EKG pending. CXR pending. As long as LFTs, coags, EKG and CXR are unremarkable or of concern, agree with progression to OR. #2. Normocytic anemia: Admission hemoglobin 11.8, prior baseline appears primarily 12-13, will continue to treat as noted and repeat CBC in a.m., will obtain iron panel, ferritin, folic acid and vitamin B12. #3. Chronic back pain: Patient status post several back surgeries as well as cervical fusion, complicates presentation, maintain on fall precautions, positional changes, therapies consulted as noted. #4. Chronic cirrhosis, suspect AGEE from discussions: We will obtain LFTs as well as coags upon presentation, does have underlying chronic mild thrombocytopenia, stable from prior. #5. Chronic thrombocytopenia secondary to underlying liver disease: Admission platelets 110, prior baseline appears 72 130, stable, trend. #6. Chronic COPD: Not on any routine inhalers, PRN albuterol, HOB, IS parameters. CXR pending upon admission. #7. Anxiety and depression: We will continue patient home sertraline regimen. #8. Former tobacco usage: Encourage continued tobacco cessation. #9. GERD with history of PUD: We will continue patient on PPI. #10. DVT prophylaxis: SCDs, will hold anticoagulant therapy for planned operative intervention. #11. CODE status: Patient does not have healthcare power of sports attorney nor living will in place. Discussed CODE STATUS and she is amenable to full code. Charges/Coding Visit Charges Inpatient E&M: 30876 Init Hosp L3
[2021-07-16 16:13] VITALS: PULSE 84; RESP 14; O2SAT 97
--- NOTE | 2021-07-16 16:14 | EKG12_ITS ---
Test Reason : FALL Blood Pressure : / mmHG Vent. Rate : 081 BPM Atrial Rate : 081 BPM P-R Int : 122 ms QRS Dur : 074 ms QT Int : 384 ms P-R-T Axes : 061 071 064 degrees QTc Int : 446 ms Normal sinus rhythm Nonspecific ST abnormality Abnormal ECG Confirmed by MARIANA RAZO, DAMIAN ([id number]), writer editor SANDY MIX ([id number]) on 07/18/2021 9:52:31 AM Referred By: SARAH Confirmed By:DAMIAN PEÑA MD
--- NOTE | 2021-07-16 16:17 | RAD_ITS ---
INDICATION: Trauma, preop clearance EXAMINATION/TECHNIQUE: X-RAY - XR Chest 1 View COMPARISON: 01/30/2021. FINDINGS: The lungs are clear. The cardiomediastinal silhouette is unremarkable. Small right pleural effusion. No pneumothorax. No acute osseous abnormalities. RAD/Chest 1 View (Portable) IMPRESSION: Small right pleural effusion. Electronically Signed: López Gann MD at 17:04 EST ,
[2021-07-16 16:22] VITALS: BP 132/80; PULSE 84; RESP 20; TEMP 36.9; O2SAT 98
--- NOTE | 2021-07-16 16:50 | CASEMGMT ---
FLYNN GONZALEZ Assessment: FLYNN GONZALEZ to room to meet with patient for initial transition planning/care coordination assessment. FLYNN GONZALEZ introduced self and role at [facility]. Patient voices understanding and consents to assessment at this time. No visitors present at bedside. Patient is alert and oriented and answers all questions appropriately, sitting up on ER cart in no apparent distress. Care providers, pharmacy, and demographics verified/updated at this time. Admitting Dx: fall, right hip fracture PCP: López Carson Specialists: Denies Preferred Pharmacy: [facility] Insurance: [facility] Community Plan [facility] Prescription Benefit: yes Living Will/HPOA: Patient denies having living will. HPOA noted on file but patient states she would like for this to be deleted. LNOK: Daughters Le Enriquez and Vickie Garcia Living Arrangements: Patient lives with 17-year-old granddaughter Jena Garcia in second story duplex with 15 steps to enter the home. Patient's living space in on one level, on second floor. Patient states independent with ADLs prior to hospitalization. Prior to injury, patient states she ambulated independently without the use of an assistive device. Patient is currently unemployed. Smoking/ETOH: Former smoker (quit July 2020), denies ETOH use Transportation: Patient drives self and reports daughter Le is also able to drive her if needed. Denies transportation concerns. DME/HHC/SNF: Patient has a cane, shower chair and grab bars in shower. Patient does not have a walker. Reports previous HHC but unsure of agency name. Denies previous SNF stays. FLYNN GONZALEZ spoke with patient regarding short SNF stay for therapies at time of hospital discharge. Patient reports she had similar discussion with hospitalist and initially stated, I'm not staying somewhere for 2 weeks, no way! CM discussed safety concerns given patient's living arrangements on second floor with 15 steps to enter her home. Patient then stated, I will cross that bridge when I get there. CM/SW to follow for any discharge planning/needs. Patient voices no concerns/needs at this time. Advised patient to ask for CM/SW if any questions/concerns/needs arise. Voices understanding. Plan: patient will consider SNF
[2021-07-16 17:10] LABS: AST(SGOT) 29 U/L (15-37); Alanine Aminotransfer ALT/SGPT 18 U/L (13-56); Albumin, Serum 2.8 g/dL (3.2-5.0); Alkaline Phosphatase 192 U/L (45-117); Globulin 2.6 g/dL (2.2-4.2); Protein, Total 5.4 g/dL (6.4-8.2)
[2021-07-16 17:11] VITALS: BMI 19.8
[2021-07-16 17:21] LABS: International Normalized Ratio 1.4; Prothrombin Time (Protime)PT. 16.2 SECONDS (11.7-14.9)
[2021-07-16 17:22] LABS: Partial Thromboplast Time 33.4 Seconds (24.1-36.2)
[2021-07-16 17:30] VITALS: BP 119/46; PULSE 93; RESP 18; TEMP 36.7; O2SAT 98
--- NOTE | 2021-07-16 17:33 | NURSING ---
is not COVID vaccinated
[2021-07-16] MEDS: 0.9% Normal Saline 1,000 ML 100 ML IV (18:24)
[2021-07-16] MEDS: Senna/Docusate Sodium 1 Tablet 2 TABLET PO (20:01)
[2021-07-16] MEDS: oxyCODONE 5 MG Tablet PO (20:01)
[2021-07-16] MEDS: 0.9% Saline Lock 10 ML Syringe IV (20:02)
[2021-07-16 20:20] VITALS: O2SAT 98
[2021-07-16 22:00] VITALS: BP 124/67; PULSE 86; RESP 16; TEMP 36.6; O2SAT 97
[2021-07-16] MEDS: proCHLORPERazine 10 MG/2 ML Vial 5 MG IV (22:08)
[2021-07-17] VITALS (16 sets, daily range): BP systolic 77–122; BP diastolic 45–76; PULSE 69–93; RESP 16–18; TEMP 36.6–36.9; O2SAT 93–100
[2021-07-17] MEDS: Morphine 4 MG/ML Syringe IV (01:21)
[2021-07-17] MEDS: 0.9% Normal Saline 1,000 ML 100 ML IV (04:12)
[2021-07-17] MEDS: oxyCODONE 5 MG Tablet PO ×3 (04:18→21:21)
[2021-07-17] MEDS: Acetaminophen 325 MG Tablet 650 MG PO ×2 (04:19→21:20)
[2021-07-17 05:39] LABS: Absolute Lymphocyte Count 1.05 X10^3/uL (0.83-4.51); Absolute Neutrophil Count 2.2 X10^3/uL (2.0-7.7); Basophil# 0.03 X10^3/uL; Basophil% 0.7 % (0-1); Eosinophil# 0.35 X10^3/uL; Eosinophils% 8.5 % (0-5); Hematocrit 32.2 % (37-47); Lymphocyte # 1.05 X10^3/ul (0.83-4.51); Lymphocyte % 25.4 % (19-41); Mean Corp Hgb Conc 34.2 g/dL (32-36); Mean Corpuscular Hgb 31.3 pg (27.0-32.0); Mean Corpuscular Volume 91.5 fL (81-99); Mean Platelet Vol. 10.3 fl (6.2-12.0); Monocyte# 0.53 X10^3/uL; Monocyte% 12.8 % (0-10); NRBC Flagged by Analyzer 0 % (0-5); Neutrophil # 2.16 X10^3/uL (2.7-7.7); Neutrophil % 52.4 % (47-70); Platelet Count 109 K/mm3 (150-450); RBC Distribution Width CV 14.1 % (11.6-14.6); RBC Distribution Width SD 47.3 fl (35.1-43.9); Red Blood Count 3.52 M/mm3 (4.2-5.4); White Blood Count 4.1 K/mm3 (4.4-11.0)
[2021-07-17 06:31] LABS: AST(SGOT) 25 U/L (15-37); Alanine Aminotransfer ALT/SGPT 16 U/L (13-56); Albumin, Serum 2.3 g/dL (3.2-5.0); Alkaline Phosphatase 155 U/L (45-117); Anion Gap 5 (5-15); BUN 17 mg/dL (7-18); BUN/Creat Ratio 38.3 RATIO (10-20); Calcium,Total 7.9 mg/dL (8.5-10.1); Chloride 115 mmol/L (98-107); Creatinine, Serum 0.44 mg/dL (0.55-1.02); EST Glomerular Filtration Rate 153 mL/min (>60); Est Glom Filt Rate - Afr Amer 186 mL/min (>60); Estimated Creatinine Clearance 128.15 ml/min; Ferritin 76 ng/mL (8-252); Globulin 2.4 g/dL (2.2-4.2); Glucose 74 mg/dL (74-106); Iron 82 ug/dL (50-170); Iron Binding Capacity,Total 275 ug/dL (250-450); PERCENT IRON SATURATION 29.8 % (15.0-55.0); Potassium 3.8 mmol/L (3.5-5.1); Protein, Total 4.7 g/dL (6.4-8.2); Sodium Level 141 mmol/L (136-145)
[2021-07-17 06:40] LABS: Magnesium 1.8 mg/dL (1.6-2.6); Phosphorus 3.8 mg/dL (2.5-4.9)
--- NOTE | 2021-07-17 06:48 | CON.PCM.OR_ITS ---
HPI Consult Data Date of Consult: 07/17/21 HPI Narrative HPI Narrative: DAISY SISM, is a 60 F who presented To [facility] emergency department 07/16/2021 after a mechanical fall at home onto her right side. Patient attempted to get up and ambulate but is unable to bear weight without significant pain. She denies any loss consciousness. There is denied any antecedent syncope or presyncopal symptoms. Denies any antecedent right hip or groin pain. Occasionally uses a walker to ambulate due to balance issues. She states she has had multiple falls including one approximately 1 week ago and her shoelace was caught in a door. X-rays in the emergency department revealed a right subcapital valgus impacted femoral neck fracture. She was admitted under the service of the hospitalist. My partner, Dr. Antonio Reddy was consulted. He asked if I could take on Daisy's case to expedite her surgical fixation. Patient denies any fevers, chills, nausea vomiting, chest pain or shortness of breath. She reports no history of a DEXA scan or known osteoporosis. [facility] Medical History (Updated 07/16/21 @ 17:32 by Manas Weber) Arthritis Back pain Cirrhosis of liver COPD (chronic obstructive pulmonary disease) Former smoker Hepatitis High cholesterol Hyperlipidemia Injury of head and neck Peptic ulcer disease Restless legs Seasonal allergies Home Medications cyclobenzaprine 10 mg PO TID PRN PRN 08/14/18 [History Last Taken 07/16/21 02:00] albuterol sulfate 2 inh INHALATION Q4H PRN 07/16/21 [History Last Taken 07/15/21] meloxicam 15 mg PO DAILY 07/16/21 [History Last Taken 1 Week Ago ~07/09/21] pantoprazole 40 mg PO DAILY 07/16/21 [History Last Taken 1 Week Ago ~07/09/21] Allergy/AdvReac Type Severity Reaction Status Date / Time trazodone Allergy Mild leg cramps Verified 07/16/21 14:01 naproxen [From Naprosyn] AdvReac Upset Verified 07/16/21 14:01 Stomach Family History (Updated 07/16/21 @ 16:[address] Cassandra Wang MD) Mother Thyroid disorder Aunt Cancer Arthritis Diabetes Hypertension Family History other Surgical History H/O colonoscopy H/O: hysterectomy History of back surgery History of back surgery History of esophagogastroduodenoscopy (EGD) neck fusion S/P cholecystectomy S/P shoulder surgery upper endoscopy Social History (Updated 07/16/21 @ 16:[address] Cassandra Wang MD) household members: other details: Her granddaughter lives with her (17 years old). Smoking Status: Former smoker how long ago did patient quit smoking: Quit 07/2020, smokedage 28 until quit, ~ 1/2 ppd. alcohol intake: never substance use type: does not use ROS ROS Narrative 12 point review of systems obtained, negative unless otherwise noted in HPI. Vital Signs Vital Signs Vital Signs: 07/16/21 13:57 07/16/21 14:02 07/16/21 16:13 Temperature 97.5 F L Temperature Source Oral Pulse Rate 95 84 Respiratory Rate 20 H 14 Respiratory Effort Normal Respiratory Depth Normal Respiratory Pattern Normal Blood Pressure 135/78 H Blood Pressure Mean 97 Blood Pressure Source Blood Pressure Position Blood Pressure Location Pulse Ox 98 97 Oxygen Delivery Method Room Air Room Air 07/16/21 16:22 07/16/21 17:30 07/16/21 19:53 Temperature 98.5 F 98.0 F Temperature Source Temporal Oral Pulse Rate 84 93 Respiratory Rate 20 H 18 Respiratory Effort Normal Non-Labored Respiratory Depth Normal Respiratory Pattern Normal Blood Pressure 132/80 H 119/46 L Blood Pressure Mean 97 70 Blood Pressure Source Monitor Blood Pressure Position Semi-Fowlers Blood Pressure Location Left Arm Pulse Ox 98 98 Oxygen Delivery Method Room Air Room Air Room Air 07/16/21 20:20 07/16/21 22:00 07/17/21 02:00 Temperature 98 F 98.2 F Temperature Source Oral Temporal Pulse Rate 86 75 Respiratory Rate 16 16 Respiratory Effort Respiratory Depth Respiratory Pattern Blood Pressure 124/67 H 106/68 Blood Pressure Mean 86 80 Blood Pressure Source Monitor Monitor Blood Pressure Position Semi-Fowlers Semi-Fowlers Blood Pressure Location Left Arm Right Arm Pulse Ox 98 97 95 Oxygen Delivery Method Room Air Room Air Room Air Weight Weight: 130 lb Body Mass Index (BMI) 19.8 Physical Exam Narrative General -A&Ox3, NAD, appears stated age. Vital signs stable, afebrile. Respiratory -normal work of breathing, no intercostal retractions. CV -pulses regular, brisk capillary refill ?4 limbs. Abdomen-soft, nontender, nondistended. No guarding, rigidity, rebound tenderness. Musculoskeletal/neurologic -full range of motion nontender throughout bilateral upper extremities, left lower extremity with full sensation and strength in all dermatomes and myotomes. No midline cervical tenderness. Right lower extremity-no obvious deformity. Pain with logroll of the right lower extremity. Nontender throughout the right knee femoral shaft, tibial shaft and right foot/ankle. Brisk capillary refill. Sensation intact light touch L3-S1 dermatomes. DF, PF, EHL intact. DP, PT 2+. Pelvis is stable, nontender. Skin is intact without lacerations, abrasions. No ecchymosis noted. Lab / Micro Data Result Diagrams: 07/17/21 05:20 07/17/21 05:20 Labs: Laboratory Results - last 24 hr 07/16/21 14:20: WBC 5.3, RBC 3.79 L, Hgb 11.8 L, Hct 34.9 L, MCV 92.1, MCH 31.1, MCHC 33.8, RDW Std Deviation 47.2 H, RDW Coeff of Heath 13.9, Plt Count 110 L, MPV 10.0, Immature Gran % (Auto) 0.200, Neut % (Auto) 63.7, Lymph % (Auto) 18.8 L, [place] % (Auto) 11.2 H, Eos % (Auto) 5.5 H, Baso % (Auto) 0.6, Absolute Neuts (auto) 3.4, Absolute Lymphs (auto) 0.99, Nucleated RBC % 0 07/16/21 14:20: Sodium 141, Potassium 3.5, Chloride 114 H, Carbon Dioxide 21.0, Anion Gap 6, BUN 13, Creatinine 0.52 L, Estim Creat Clear Calc 105.19, Est GFR (MDRD) Af Amer 155, Est GFR (MDRD) Non-Af 128, BUN/Creatinine Ratio 25.0 H, Glucose 82, Calcium 8.6 07/16/21 14:20: Total Creatine Kinase 82 07/16/21 14:20: PT 16.2 H, INR 1.4, APTT 33.4 07/16/21 14:20: Total Bilirubin 2.00 H, Direct Bilirubin 0.60 H, AST 29, ALT 18, Alkaline Phosphatase 192 H, Total Protein 5.4 L, Albumin 2.8 L, Globulin 2.6 07/17/21 05:20: WBC 4.1 L, RBC 3.52 L, Hgb 11.0 L, Hct 32.2 L, MCV 91.5, MCH 31.3, MCHC 34.2, RDW Std Deviation 47.3 H, RDW Coeff of Heath 14.1, Plt Count 109 L, MPV 10.3, Immature Gran % (Auto) 0.200, Neut % (Auto) 52.4, Lymph % (Auto) 25.4, [place] % (Auto) 12.8 H, Eos % (Auto) 8.5 H, Baso % (Auto) 0.7, Absolute Neuts (auto) 2.2, Absolute Lymphs (auto) 1.05, Nucleated RBC % 0 07/17/21 05:20: Sodium 141, Potassium 3.8, Chloride 115 H, Carbon Dioxide 21.0, Anion Gap 5, BUN 17, Creatinine 0.44 L, Estim Creat Clear Calc 128.15, Est GFR (MDRD) Af Amer 186, Est GFR (MDRD) Non-Af 153, BUN/Creatinine Ratio 38.3 H, Glucose 74, Calcium 7.9 L, Iron 82, TIBC 275, Iron Saturation 29.8, Ferritin 76, Total Bilirubin 1.30 H, AST 25, ALT 16, Alkaline Phosphatase 155 H, Total Protein 4.7 L, Albumin 2.3 L, Globulin 2.4, Albumin/Globulin Ratio 1.0, Folate 14.60 07/17/21 05:20: Phosphorus 3.8, Magnesium 1.8 Micro: Microbiology 07/16/21 22:20 Nasal Secretion SARS-CoV-2 Antigen (Rapid) - Final Radiology Impression Hip/Pelvis X-Ray 07/16/21 14:35 IMPRESSION: Transverse subcapital fracture with impaction in the proximal right femur. 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 Electronically Signed: Daniel Mason MD at 15:13 EST , Chest X-Ray 07/16/21 16:17 IMPRESSION: Small right pleural effusion. Electronically Signed: López Gann MD at 17:04 EST , Assessment & Plan Assessment/Plan (1) Closed subcapital fracture of neck of right femur: QUALIFIERS: Encounter type: initial encounter Qualified Code(s): S72.011A - Unspecified intracapsular fracture of right femur, initial encounter for closed fracture PLAN: Patient sustained a Right, valgus impacted subcapital femoral neck fracture -Closed, neurovascularly intact -Isolated injury -Recommending surgical intervention in the form of percutaneous screw fixation right femoral neck -I discussed the procedure-its risks, benefits and alternative. Risks include but are not limited to bleeding, infection, loss of life or limb, risk of anesthesia, persistent pain or disability, need for additional surgery, nonunion, malunion, failure of orthopedic hardware, neurovascular injury, DVT or PE. Patient expressed understanding these risks and wished proceed with surge ry. -Maintenance IV fluids, clear liquid diet after midnight n.p.o. at 4 hours prior to surgery -Type and screen -2 g Ancef on-call to the OR -Bedrest, heel protectors -Plan to proceed with surgery later this afternoon Thank you for this consultation.
[2021-07-17 08:53] LABS: International Normalized Ratio 1.5
--- NOTE | 2021-07-17 10:17 | PN.HOSP_ITS ---
Subjective Subjective Patient seen and examined. She complains of pain in her right hip due to the fracture. She has no other complaints and denies any nausea, vomiting, fever or chills. Review of systems otherwise negative. Objective Data Objective Data Vital Signs: Vital Signs Temp Pulse Resp BP Pulse Ox 97.8 F 71 16 94/54 L 94 07/17/21 07:34 07/17/21 07:34 07/17/21 07:34 07/17/21 07:34 07/17/21 07:34 Oxygen Delivery Method Room Air Weight: 130 lb Body Mass Index (BMI) 19.8 Intake & Output: Intake and Output for Last 24 Hours 07/15/21 07/16/21 07/17/21 23:59 23:59 23:59 Intake Total 250 / 250 980 / 980 Output Total 300 / 300 Balance 250 / -50 680 / 680 Lab / Micro Data Result Diagrams: 07/17/21 05:20 07/17/21 05:20 Labs: Laboratory Results - last 24 hr 07/16/21 14:20: WBC 5.3, RBC 3.79 L, Hgb 11.8 L, Hct 34.9 L, MCV 92.1, MCH 31.1, MCHC 33.8, RDW Std Deviation 47.2 H, RDW Coeff of Heath 13.9, Plt Count 110 L, MPV 10.0, Immature Gran % (Auto) 0.200, Neut % (Auto) 63.7, Lymph % (Auto) 18.8 L, [place] % (Auto) 11.2 H, Eos % (Auto) 5.5 H, Baso % (Auto) 0.6, Absolute Neuts (auto) 3.4, Absolute Lymphs (auto) 0.99, Nucleated RBC % 0 07/16/21 14:20: Sodium 141, Potassium 3.5, Chloride 114 H, Carbon Dioxide 21.0, Anion Gap 6, BUN 13, Creatinine 0.52 L, Estim Creat Clear Calc 105.19, Est GFR (MDRD) Af Amer 155, Est GFR (MDRD) Non-Af 128, BUN/Creatinine Ratio 25.0 H, Glucose 82, Calcium 8.6 07/16/21 14:20: Total Creatine Kinase 82 07/16/21 14:20: PT 16.2 H, INR 1.4, APTT 33.4 07/16/21 14:20: Total Bilirubin 2.00 H, Direct Bilirubin 0.60 H, AST 29, ALT 18, Alkaline Phosphatase 192 H, Total Protein 5.4 L, Albumin 2.8 L, Globulin 2.6 07/17/21 05:20: WBC 4.1 L, RBC 3.52 L, Hgb 11.0 L, Hct 32.2 L, MCV 91.5, MCH 31.3, MCHC 34.2, RDW Std Deviation 47.3 H, RDW Coeff of Heath 14.1, Plt Count 109 L, MPV 10.3, Immature Gran % (Auto) 0.200, Neut % (Auto) 52.4, Lymph % (Auto) 25.4, [place] % (Auto) 12.8 H, Eos % (Auto) 8.5 H, Baso % (Auto) 0.7, Absolute Neuts (auto) 2.2, Absolute Lymphs (auto) 1.05, Nucleated RBC % 0 07/17/21 05:20: Sodium 141, Potassium 3.8, Chloride 115 H, Carbon Dioxide 21.0, Anion Gap 5, BUN 17, Creatinine 0.44 L, Estim Creat Clear Calc 128.15, Est GFR (MDRD) Af Amer 186, Est GFR (MDRD) Non-Af 153, BUN/Creatinine Ratio 38.3 H, Glucose 74, Calcium 7.9 L, Iron 82, TIBC 275, Iron Saturation 29.8, Ferritin 76, Total Bilirubin 1.30 H, AST 25, ALT 16, Alkaline Phosphatase 155 H, Total Protein 4.7 L, Albumin 2.3 L, Globulin 2.4, Albumin/Globulin Ratio 1.0, Folate 14.60 07/17/21 05:20: Phosphorus 3.8, Magnesium 1.8 07/17/21 05:20: Blood Type O POSITIVE, Antibody Screen NEGATIVE 07/17/21 05:20: PT 17.0 H, INR 1.5 Micro: Microbiology 07/16/21 22:20 Nasal Secretion SARS-CoV-2 Antigen (Rapid) - Final Radiography Diagnostic Testing: Radiology Impression Hip/Pelvis X-Ray 07/16/21 14:35 IMPRESSION: Transverse subcapital fracture with impaction in the proximal right femur. 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 Electronically Signed: Daniel Mason MD at 15:13 EST , Chest X-Ray 07/16/21 16:17 IMPRESSION: Small right pleural effusion. Electronically Signed: López Gann MD at 17:04 EST , Physical Exam Const alert, oriented x3 and no apparent distress Exam Limitations: no limitations HEENT head/scalp atraumatic and moist oral mucous membranes Head and Scalp: normocephalic Eyes PERRL, EOMs intact bilaterally and conjunctivae normal Neck no lymphadenopathy Resp normal respiratory effort, no retractions, no use of accessory muscles and clear to auscultation bilaterally Cardio regular rate, regular rhythm, S1 normal heart sound, S2 normal heart sound and no murmurs GI normal to inspection, nondistended, normoactive bowel sounds, soft to palpation, non-tender and non-distended Extremity normal to inspection and no clubbing, cyanosis or edema Extremity Narrative: pain over right hip due to fracture Peripheral Pulses: Yes pulses 2+ throughout Skin no rashes or lesions noted Neuro oriented x3 and CN's II-XII intact bilaterally Sensorium / Orientation: awake and alert Psych affect normal Assessment & Plan Assessment/Plan (1) Closed subcapital fracture of neck of right femur: QUALIFIERS: Encounter type: initial encounter Qualified Code(s): S72.011A - Unspecified intracapsular fracture of right femur, initial encounter for closed fracture (2) Fall at home: PLAN: #Acute subcapital right femoral fracture due to mechanical fall * Patient has had numerous falls at home. * Imaging done in the ED showed a right subcapital valgus impacted femoral neck fracture * Orthopedic surgery on board for surgery today. * On p.o. Tylenol, p.o. oxycodone and IV morphine as needed for pain. * PT OT on board. Fall precautions. * #History of cirrhosis from hepatitis C * Patient states she has a history of hepatitis C * stable. Says she had a TIPS procedure done previously * #Thrombocytopenia: this is chronic and is due to chronic kidney disease. WIll monitor #CHronic COPD: not in exacerbation. Breathing treatment with bronchodilators. #ANxiety and depression: on sertraline #GERD: on PPI DVT prophylaxis; SCDs for now, pending surgical intervention Charges/Coding Visit Charges Inpatient E&M: 31794 Subs Hosp L2
[2021-07-17 11:23] LABS: Vitamin B12 477 pg/mL (211-911)
[2021-07-17] MEDS: Lactated Ringers 1,000 ML 15 ML IV ×2 (13:45→15:46)
[2021-07-17] MEDS: Cefazolin 2 GM in 0.9% Normal Saline 100 ML IV ×2 (14:40→21:17)
--- NOTE | 2021-07-17 14:41 | RAD_ITS ---
STUDY: X-RAY - PELVIS AND RIGHT HIP REASON FOR EXAM: Female, 60 years old. FX TECHNIQUE: Intraoperative imaging provided for ORIF of the right subcapital fracture. COMPARISON: Comparison is made with prior examination dated 07/16/2021. FINDINGS: Intraoperative imaging provided for ORIF of the right subcapital fracture placing 3 metallic screws. RAD/Hip Min 2 Views (Portable) IMPRESSION: Intraoperative images provided for ORIF of the subcapital fracture. There is good alignment. Electronically Signed: Daniel Mason MD at 9:03 EST ,
[2021-07-17] MEDS: Ropivacaine 0.5% 30 ML Vial (15:29)
--- NOTE | 2021-07-17 15:39 | PCM.OPRPT ---
Report of Operation Date of Procedure: 07/17/21 Description of Surgical Findings:: Preoperative diagnosis: Right Valgus impacted femoral neck fracture Postoperative diagnosis: Right valgus impacted femoral neck fracture Procedure: Percutaneous screw fixation of right valgus impacted femoral neck fracture Surgeon: Vincent Grimm DO Anesthesia: General LMA Anesthesiologist: Dr. Burgos / Sonu Dale CRNA Complications: None Drains: None Estimated blood loss: 100 cc Urinary output: None recorded IV fluids: 500 cc crystalloid Specimens: None Surgical implants: Synthes 7.3 mm cannulated screws x3 with 1 washer Surgical indications: This is a 60-year-old female who sustained a ground-level fall mechanical in nature early yesterday morning. She was brought to [facility] emergency department due to inability to bear weight on her right side. X-rays revealed a valgus impacted femoral neck fracture. She was admitted under the service of the hospitalist. Orthopedics was consulted. I saw the patient in consultation. I recommended surgical intervention in the form of right femoral neck percutaneous screw fixation. She did not have any antecedent hip or groin pain prior to the fall. She can usually does use a walker for her balance. We discussed the risks, benefits, alternatives of procedure including but not limited to bleeding, infection, need for additional surgery, malunion or nonunion, persistent pain, persistent disability, loss of life or limb, risk of anesthesia, mechanical failure of orthopedic hardware. The patient acknowledged understanding of these risks and elected to proceed. Description of procedure: Prior to the procedure, patient was brought to the preoperative holding area where patient was identified by name, medical record number and date of . I confirmed the side, site, operation to be performed. Informed consent was confirmed. The operative extremity was marked. She was also seen by anesthesia staff and anesthesia consent obtained.At time of the operative procedure, pt was brought to the operative suite. General anesthesia was induced on the hospital bed and LMA placed. After adequate anesthesia and securing the tube, patient was then positioned supine on a fracture table. The operative foot was well-padded and placed in a ski boot attached to the traction unit on the fracture table. The nonoperative leg was extended and secured to the axial post of the fracture table. A well-padded perineal post was placed and the right upper extremity was brought across patient's torso and secured. We applied minimal traction through the operative extremity. Orthogonal fluoroscopic images confirmed valgus impacted fracture pattern without displacement since x-rays were obtained in the emergency department. We then prepped and draped the right lower extremity in normal sterile orthopedic fashion. We then performed a timeout with all parties in attendance in agreement with the side, site, operation be performed. 2 g Ancef was administered prior to incision by anesthesia staff. I first used fluoroscopy to rachid out our planned incision with the planned trajectory of the screws. An approximately 6 cm incision was made along the lateral thigh. I then opened the IT band with a scalpel. A threaded K wire was then used to plan my screw trajectory. I placed an inverted triangle configuration just above the level of the lesser trochanter. The inferior screw was planned to rest on the calcar. Position was confirmed on fluoroscopy and appropriate and parallel position. Depth gauge was used to measure the length of screws. The self drilling screws were then placed on power and tightened on hand. I did place a washer on the inferior screw for increasing purchase. Final fluoroscopic images were obtained. Maintained reduction in placement and size of hardware appeared appropriate. Hemostasis was excellent. I then thoroughly irrigated the wound with normal saline solution. Deep tissues were closed with 0 Vicryl suture and subcutaneous tissue closed with 2-0 Vicryl suture. Skin was finally closed with jessica. I anesthetized the wound and periosteum with 20 cc 0.5% plain ropivacaine. Sterile compression dressings were applied to the wound. Patient was then taken out of traction entirely and removed from both traction boot and well leg dallas. Patient was transferred back to his hospital bed in stable condition and extubated safely in the operative suite. Patient was then transferred to PACU in stable condition. Post Operative Plan: Weightbearing: Weightbearing as tolerated right lower extremity Antibiotics: Ancef 1 g x 3 doses postoperatively, 1 dose given preoperatively DVT Prophylaxis: To be discussed with primary service. Patient does have a history of hematemesis. I would recommend at least aspirin 81 mg twice daily for DVT prophylaxis. Serrato: None Dressing: Dry sterile dressing changes daily and as needed for saturation X-Rays: 3 weeks postop in the office Follow-up: 3 weeks in the office with myself
[2021-07-17] MEDS: Ketorolac 30 MG/ML Syringe IV (16:18)
[2021-07-17] MEDS: Calcium Carbonate 500 MG Tablet PO (17:35)
[2021-07-17] MEDS: proCHLORPERazine 10 MG/2 ML Vial 5 MG IV (19:36)
[2021-07-17] MEDS: Senna/Docusate Sodium 1 Tablet 2 TABLET PO (21:18)
[2021-07-18 01:13] VITALS: BP 106/68; PULSE 89; RESP 18; TEMP 36.5; O2SAT 97
[2021-07-18] MEDS: oxyCODONE 5 MG Tablet PO ×5 (04:50→20:48)
[2021-07-18 05:10] VITALS: BP 131/86; PULSE 83; RESP 16; TEMP 36.6; O2SAT 97
[2021-07-18] MEDS: Cefazolin 2 GM in 0.9% Normal Saline 100 ML IV ×2 (05:16→14:27)
[2021-07-18 05:31] LABS: Absolute Lymphocyte Count 0.71 X10^3/uL (0.83-4.51); Absolute Neutrophil Count 5.9 X10^3/uL (2.0-7.7); Basophil# 0.01 X10^3/uL; Basophil% 0.1 % (0-1); Eosinophil# 0.01 X10^3/uL; Eosinophils% 0.1 % (0-5); Hematocrit 28.5 % (37-47); Hemoglobin 9.9 g/dL (12.0-15.0); Lymphocyte # 0.71 X10^3/ul (0.83-4.51); Lymphocyte % 9.5 % (19-41); Mean Corp Hgb Conc 34.7 g/dL (32-36); Mean Corpuscular Hgb 31.1 pg (27.0-32.0); Mean Corpuscular Volume 89.6 fL (81-99); Mean Platelet Vol. 11.1 fl (6.2-12.0); Monocyte# 0.83 X10^3/uL; Monocyte% 11.1 % (0-10); NRBC Flagged by Analyzer 0 % (0-5); Neutrophil # 5.86 X10^3/uL (2.7-7.7); Neutrophil % 78.7 % (47-70); Platelet Count 123 K/mm3 (150-450); RBC Distribution Width CV 13.5 % (11.6-14.6); RBC Distribution Width SD 44.4 fl (35.1-43.9); Red Blood Count 3.18 M/mm3 (4.2-5.4); White Blood Count 7.5 K/mm3 (4.4-11.0)
[2021-07-18 05:56] LABS: AST(SGOT) 23 U/L (15-37); Alanine Aminotransfer ALT/SGPT 17 U/L (13-56); Albumin, Serum 2.3 g/dL (3.2-5.0); Alkaline Phosphatase 155 U/L (45-117); Anion Gap 7 (5-15); BUN 25 mg/dL (7-18); BUN/Creat Ratio 43.5 RATIO (10-20); Calcium,Total 7.8 mg/dL (8.5-10.1); Chloride 113 mmol/L (98-107); Creatinine, Serum 0.58 mg/dL (0.55-1.02); EST Glomerular Filtration Rate 114 mL/min (>60); Est Glom Filt Rate - Afr Amer 138 mL/min (>60); Globulin 2.4 g/dL (2.2-4.2); Glucose 113 mg/dL (74-106); Potassium 3.6 mmol/L (3.5-5.1); Protein, Total 4.7 g/dL (6.4-8.2); Sodium Level 139 mmol/L (136-145)
[2021-07-18 07:44] VITALS: O2SAT 97
--- NOTE | 2021-07-18 07:52 | PCM.PN.ORT ---
Subjective Subjective Assessment and plan: POD#1 s/p right femoral neck percutaneous screw fixation - Pain control - Medicine following for medical management - PT/OT -weightbearing as tolerated right lower extremity - DVT PPX -81 mg aspirin twice daily ordered today. Appreciate recommendations from primary service. -Follow-up with me in 3 weeks. Okay to remove surgical dressing on postoperative day #4 and shower. No tub soaks. If no drainage, okay to leave open to air. - Case management - D/C planning S:Patient seen and examined. States her pain is dramatically improved from preop. Denies any fevers, chills, nausea vomiting, chest pain or shortness of breath. Objective Data Objective Data Vital Signs: Vital Signs Temp Pulse Resp BP Pulse Ox 97.8 F 83 16 131/86 H 97 07/18/21 05:10 07/18/21 05:10 07/18/21 05:10 07/18/21 05:10 07/18/21 07:44 Oxygen Flow Rate (L/min) 2 Oxygen Delivery Method Room Air Weight: 130 lb 8.218 oz Body Mass Index (BMI) 19.8 Intake & Output: Intake and Output for Last 24 Hours 07/16/21 07/17/21 07/18/21 23:59 23:59 23:59 Intake Total 250 / 250 3200 / 3200 330 / 330 Output Total 300 / 600 600 / 600 Balance 250 / -50 2900 / 2600 -270 / -270 Lab / Micro Data Result Diagrams: 07/18/21 05:12 07/18/21 05:12 Labs: Laboratory Results - last 24 hr 07/17/21 05:20: Vitamin B12 477 07/17/21 05:20: PT 17.0 H, INR 1.5 07/18/21 05:12: WBC 7.5, RBC 3.18 L, Hgb 9.9 L, Hct 28.5 L, MCV 89.6, MCH 31.1, MCHC 34.7, RDW Std Deviation 44.4 H, RDW Coeff of Heath 13.5, Plt Count 123 L, MPV 11.1, Immature Gran % (Auto) 0.500, Neut % (Auto) 78.7 H, Lymph % (Auto) 9.5 L, [place] % (Auto) 11.1 H, Eos % (Auto) 0.1, Baso % (Auto) 0.1, Absolute Neuts (auto) 5.9, Absolute Lymphs (auto) 0.71 L, Nucleated RBC % 0 07/18/21 05:12: Sodium 139, Potassium 3.6, Chloride 113 H, Carbon Dioxide 19.0 L, Anion Gap 7, BUN 25 H, Creatinine 0.58, Estim Creat Clear Calc 97.60, Est GFR (MDRD) Af Amer 138, Est GFR (MDRD) Non-Af 114, BUN/Creatinine Ratio 43.5 H, Glucose 113 H, Calcium 7.8 L, Total Bilirubin 0.80, AST 23, ALT 17, Alkaline Phosphatase 155 H, Total Protein 4.7 L, Albumin 2.3 L, Globulin 2.4, Albumin/Globulin Ratio 1.0 Micro: Microbiology 07/16/21 22:20 Nasal Secretion SARS-CoV-2 Antigen (Rapid) - Final Radiography Diagnostic Testing: Radiology Impression Hip/Pelvis X-Ray 07/16/21 14:35 IMPRESSION: Transverse subcapital fracture with impaction in the proximal right femur. 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 Electronically Signed: Daniel Mason MD at 15:13 EST , Chest X-Ray 07/16/21 16:17 IMPRESSION: Small right pleural effusion. Electronically Signed: López Gann MD at 17:04 EST , Physical Exam Narrative General - A&Ox3, NAD. VSS/AF Right lower extremity -incisional dressing shows some dried central sanguinous drainage, otherwise C/D/I. SILT Sural, Saphenous, SPN, DPN, Tibial N. distributions. DP, PT 2+. BCR. DF, PF, EHL 5/5. No calf TTP.
[2021-07-18 09:11] VITALS: BP 103/53; PULSE 96; RESP 18; TEMP 36.7; O2SAT 97
--- NOTE | 2021-07-18 09:58 | PN.HOSP_ITS ---
Subjective Subjective Patient seen and examined. She had no acute complaints today. SHe thinks she choked on her breakfast eggs, and was coughing during review because of that. Pain was well controlled. She is POD 1 for percutaneous fixation of right valgus impacted femoral neck fracture. Orthopedics on board. SHe has remained hemodynam ically stable. Objective Data Objective Data Vital Signs: Vital Signs Temp Pulse Resp BP Pulse Ox 98.1 F 96 18 103/53 L 97 07/18/21 09:11 07/18/21 09:11 07/18/21 09:11 07/18/21 09:11 07/18/21 09:11 Oxygen Flow Rate (L/min) 2 Oxygen Delivery Method Room Air Weight: 130 lb 8.218 oz Body Mass Index (BMI) 19.8 Intake & Output: Intake and Output for Last 24 Hours 07/16/21 07/17/21 07/18/21 23:59 23:59 23:59 Intake Total 250 / 250 3200 / 3200 330 / 330 Output Total 300 / 600 600 / 600 Balance 250 / -50 2900 / 2600 -270 / -270 Lab / Micro Data Result Diagrams: 07/18/21 05:12 07/18/21 05:12 Labs: Laboratory Results - last 24 hr 07/17/21 05:20: Vitamin B12 477 07/18/21 05:12: WBC 7.5, RBC 3.18 L, Hgb 9.9 L, Hct 28.5 L, MCV 89.6, MCH 31.1, MCHC 34.7, RDW Std Deviation 44.4 H, RDW Coeff of Heath 13.5, Plt Count 123 L, MPV 11.1, Immature Gran % (Auto) 0.500, Neut % (Auto) 78.7 H, Lymph % (Auto) 9.5 L, Sebastian % (Auto) 11.1 H, Eos % (Auto) 0.1, Baso % (Auto) 0.1, Absolute Neuts (auto) 5.9, Absolute Lymphs (auto) 0.71 L, Nucleated RBC % 0 07/18/21 05:12: Sodium 139, Potassium 3.6, Chloride 113 H, Carbon Dioxide 19.0 L , Anion Gap 7, BUN 25 H, Creatinine 0.58, Estim Creat Clear Calc 97.60, Est GFR (MDRD) Af Amer 138, Est GFR (MDRD) Non-Af 114, BUN/Creatinine Ratio 43.5 H, Glucose 113 H, Calcium 7.8 L, Total Bilirubin 0.80, AST 23, ALT 17, Alkaline Phosphatase 155 H, Total Protein 4.7 L, Albumin 2.3 L, Globulin 2.4, Albumin/Globulin Ratio 1.0 Micro: Microbiology 07/16/21 22:20 Nasal Secretion SARS-CoV-2 Antigen (Rapid) - Final Radiography Diagnostic Testing: Radiology Impression Hip/Pelvis X-Ray 07/16/21 14:35 IMPRESSION: Transverse subcapital fracture with impaction in the proximal right femur. 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 Electronically Signed: Daniel Mason MD at 15:13 EST , Chest X-Ray 07/16/21 16:17 IMPRESSION: Small right pleural effusion. Electronically Signed: López Gann MD at 17:04 EST , Hip X-Ray 07/17/21 14:41 IMPRESSION: Intraoperative images provided for ORIF of the subcapital fracture. There is good alignment. Electronically Signed: Daniel Mason MD at 9:03 EST , Physical Exam Const alert, oriented x3 and no apparent distress Exam Limitations: no limitations HEENT head/scalp atraumatic and moist oral mucous membranes Head and Scalp: normocephalic Eyes PERRL, EOMs intact bilaterally and conjunctivae normal Neck no lymphadenopathy Resp normal respiratory effort, no retractions, no use of accessory muscles and clear to auscultation bilaterally Cardio regular rate, regular rhythm, S1 normal heart sound, S2 normal heart sound and no murmurs GI normal to inspection, nondistended, normoactive bowel sounds, soft to palpation, non-tender and non-distended Extremity normal to inspection and no clubbing, cyanosis or edema Extremity Narrative: pain over right hip due to fracture Skin no rashes or lesions noted Skin Narrative: intact dressing over left hip Neuro oriented x3 and CN's II-XII intact bilaterally Sensorium / Orientation: awake and alert Psych affect normal Assessment & Plan Assessment/Plan (1) Closed subcapital fracture of neck of right femur: QUALIFIERS: Encounter type: initial encounter Qualified Code(s): S72.011A - Unspecified intracapsular fracture of right femur, initial encounter for closed fracture (2) Fall at home: PLAN: #Acute subcapital right femoral fracture due to mechanical fall * s/p percutaneous screw fixation of right valgus impacted femoral neck fracture * ORthopedic surgery on board. * today is POD 1 * On p.o. Tylenol, p.o. oxycodone and IV morphine as needed for pain. * PT OT on board. Fall precautions. * #History of cirrhosis from hepatitis C * Patient states she has a history of hepatitis C * stable. Says she had a TIPS procedure done previously * #Thrombocytopenia: this is chronic and is due to chronic kidney disease. WIll monitor #Acute anemia: * likely due to acute blood loss from surgery. * Hb is 9.9; was 11.8 on admission. * WIll monitor. Transfuse if Hb < 7 * #CHronic COPD: not in exacerbation. Breathing treatment with bronchodilators. #ANxiety and depression: on sertraline #GERD: on PPI DVT prophylaxis;aspirin 81mg bid. Charges/Coding Visit Charges Inpatient E&M: 59273 Subs Hosp L2
[2021-07-18] MEDS: Senna/Docusate Sodium 1 Tablet 2 TABLET PO (10:52)
[2021-07-18] MEDS: Aspirin E.C. 81 MG Tablet PO ×2 (10:52→16:49)
[2021-07-18] MEDS: Calcium Carbonate 500 MG Tablet PO ×2 (10:53→12:36)
--- NOTE | 2021-07-18 11:11 | CASEMGMT ---
Addendum entered by Karen Pinto 07/18/21 12:53: SW placed a call to Palm[facility] with [facility] regarding referral. [facility] is still reviewing referral. Addendum entered by Karen Pinto 07/18/21 11:25: SW also spoke with pt about her 17 year old granddaughter. Pt states that her granddaughter is currently at school and is staying with pt's daughter at this time. Original Note: Social Work Note SW received update that pt is agreeable to Placement. SW placed a call to [facility] with [facility], [facility] may be an option for pt. SW in to speak with pt. SW introduced self and role at [facility]. Pt is alert and orientated, engages in conversation appropriately. SW spoke with pt about discharge planning. Patient was provided a list of SNF/Inpatient Rehab Unit providers including quality and resource use data and consistent with the patient?s preferred geographic region, medical needs, and insurance network. Pt's preferred provider is [facility]. SW informed pt of process to get pt to including referral, insurance approval, etc. Pt states if she gets denied for [facility] her next choices for SNF will be 1. [facility] 2. [facility] 3. [facility]. SW placed a call to [facility] with [facility] and provided referral. [facility] to review. Plan: [facility] pending acceptance and pr-cert Karen Pinto SLATE SPLITTING SUPERVISOR, CAUSTIC OPERATOR
[2021-07-18] MEDS: Acetaminophen 325 MG Tablet 650 MG PO (12:35)
[2021-07-18 14:25] VITALS: BP 108/64; PULSE 102; RESP 18; TEMP 37; O2SAT 95
[2021-07-18] MEDS: 0.9% Saline Lock 10 ML Syringe IV (14:27)
--- NOTE | 2021-07-18 16:07 | CASEMGMT ---
Social Work Note CHIQUIS spoke with [facility] with [facility]. [facility] has accepted pt and pre-cert has been obtained. Pt can discharge to [facility] when medically cleared. SW in to speak with pt. SW updated pt that [facility] has accepted pt and pre-cert has been obtained. Pt to discharge to [facility] when medically cleared. Pt states understanding. SW updated physician. Plan is for pt to discharge to [facility] tomorrow. CHIQUIS placed a call to [facility] with [facility] and updated her. Green sheet on chart. Plan: [facility] when medically cleared Karen Pinto NEWCOMER HOSTESS, OPTOMETRIC ASSISTANT
[2021-07-18 20:52] VITALS: BP 110/60; PULSE 105; RESP 18; TEMP 37; O2SAT 95
[2021-07-19] MEDS: oxyCODONE 5 MG Tablet PO ×4 (01:02→14:37)
[2021-07-19 02:15] VITALS: BP 109/69; PULSE 99; RESP 18; TEMP 36.8; O2SAT 93
[2021-07-19 05:33] LABS: Absolute Lymphocyte Count 1.11 X10^3/uL (0.83-4.51); Absolute Neutrophil Count 5.4 X10^3/uL (2.0-7.7); Basophil# 0.03 X10^3/uL; Basophil% 0.4 % (0-1); Hematocrit 24.6 % (37-47); Hemoglobin 8.3 g/dL (12.0-15.0); Lymphocyte # 1.11 X10^3/ul (0.83-4.51); Lymphocyte % 14.6 % (19-41); Mean Corp Hgb Conc 33.7 g/dL (32-36); Mean Corpuscular Hgb 30.4 pg (27.0-32.0); Mean Corpuscular Volume 90.1 fL (81-99); Mean Platelet Vol. 10.5 fl (6.2-12.0); Monocyte# 0.73 X10^3/uL; Monocyte% 9.6 % (0-10); NRBC Flagged by Analyzer 0 % (0-5); Neutrophil # 5.38 X10^3/uL (2.7-7.7); Platelet Count 102 K/mm3 (150-450); RBC Distribution Width CV 14.2 % (11.6-14.6); RBC Distribution Width SD 46.3 fl (35.1-43.9); Red Blood Count 2.73 M/mm3 (4.2-5.4); White Blood Count 7.6 K/mm3 (4.4-11.0)
[2021-07-19 06:10] LABS: AST(SGOT) 39 U/L (15-37); Alanine Aminotransfer ALT/SGPT 20 U/L (13-56); Albumin, Serum 2.1 g/dL (3.2-5.0); Alkaline Phosphatase 189 U/L (45-117); Anion Gap 5 (5-15); BUN 27 mg/dL (7-18); BUN/Creat Ratio 60.7 RATIO (10-20); Calcium,Total 7.3 mg/dL (8.5-10.1); Chloride 112 mmol/L (98-107); Creatinine, Serum 0.44 mg/dL (0.55-1.02); EST Glomerular Filtration Rate 153 mL/min (>60); Est Glom Filt Rate - Afr Amer 185 mL/min (>60); Estimated Creatinine Clearance 128.66 ml/min; Globulin 2.1 g/dL (2.2-4.2); Glucose 113 mg/dL (74-106); Potassium 3.8 mmol/L (3.5-5.1); Protein, Total 4.2 g/dL (6.4-8.2); Sodium Level 141 mmol/L (136-145)
[2021-07-19 08:02] VITALS: O2SAT 95
[2021-07-19] MEDS: Senna/Docusate Sodium 1 Tablet 2 TABLET PO (10:15)
[2021-07-19] MEDS: Aspirin E.C. 81 MG Tablet PO (10:15)
[2021-07-19] MEDS: 0.9% Saline Lock 10 ML Syringe IV (10:16)
[2021-07-19] MEDS: Ondansetron 4 MG/2 ML Vial IV (10:16)
[2021-07-19 10:20] VITALS: BP 105/62; PULSE 80; RESP 18; TEMP 36.8; O2SAT 97
--- NOTE | 2021-07-19 10:30 | DS.PCM_ITS ---
Providers Date of Admission: 07/16/21 Primary Care Physician: Dr. Cem Carson MD Reason For Visit: FALL, R HIP FRACTURE Diagnosis Discharge Diagnosis (1) Closed subcapital fracture of neck of right femur: Status: Acute Code(s): S72.011A - Unspecified intracapsular fracture of right femur, initial encounter for closed fracture Qualifiers: Encounter type: initial encounter Qualified Code(s): S72.011A - Unspecified intracapsular fracture of right femur, initial encounter for closed fracture (2) Fall at home: Status: Acute Code(s): W19.XXXA - Unspecified fall, initial encounter; Y92.009 - Unspecified place in unspecified non-institutional (private) residence as the place of occurrence of the external cause Medications at Discharge Home Medications cyclobenzaprine 10 mg PO TID PRN PRN 08/14/18 albuterol sulfate 2 inh INHALATION Q4H PRN 07/16/21 pantoprazole 40 mg PO DAILY 07/16/21 aspirin 81 mg PO 0800,1700 #42 tab 07/19/21 oxycodone 5 mg PO Q6H PRN 5 Days #20 tab 07/19/21 Hospital Course Operations - (percutaneous screw fixation of right valgus impacted femoral neck fracture) Procedures None Summary of Care Provided Minutes Spent on Discharge: 40 Hospital Course: Patient is a 60-year-old female with an extensive past medical history as outlined was admitted through the ED on 07/16/2021 with a complaint of mechanical fall after getting up in the middle of the night to go to the bathroom. She landed on her right hip was unable to ambulate. She was brought to the ED after laying on the ground for several hours. X-ray of the right hip and pelvis showed transverse subcapital fracture with impaction of the proximal right femur with femoral acetabular impingement of both hip joints. She was admitted to be managed for debility due to right hip fracture. Orthopedic surgery was consulted. She had right percutaneous screw fixation of the right femoral neck on 07/17/2021. Patient tolerated surgical procedure well. Postop course was uncomplicated. She remained stable and was discharged to the inpatient rehab unit on 07/19/2021. She is to follow-up with her primary care doctor and orthopedic surgery and was discharged on p.o. aspirin 81 mg twice daily for DVT prophylaxis. Patient seen and examined prior to discharge. She had no active complaints and felt well. Pain was well controlled. REview of systems was otherwise negative. Labs and vitals reviewed. Home meds reviewed and reconciled. Physical Exam Const alert, oriented x3 and no apparent distress General Appearance: cooperative and comfortable Exam Limitations: no limitations HEENT normocephalic, head/scalp atraumatic, hearing grossly normal bilaterally and moist oral mucous membranes Eyes PERRL, EOMs intact bilaterally and conjunctivae normal Neck no lymphadenopathy Resp normal respiratory effort, no retractions, no use of accessory muscles and clear to auscultation bilaterally Cardio regular rate, regular rhythm, S1 normal heart sound, S2 normal heart sound and no murmurs GI normal to inspection, nondistended, normoactive bowel sounds, soft to palpation, non-tender and non-distended Extremity normal to inspection and no clubbing, cyanosis or edema Skin no rashes or lesions noted Skin Narrative: intact dressing over left hip Neuro oriented x3 and CN's II-XII intact bilaterally Sensorium / Orientation: awake and alert Psych affect normal Medical Records Data Medical Nutrition Assessment Dietitian: Malnutrition Criteria Met Start: 07/19/21 09:41 Freq: Status: Active Protocol: Document 07/19/21 09:41 RMA (Rec: 07/19/21 09:41 RMA [id number]) Nutrition Malnutrition Evidence of Malnutrition Exists Yes Malnutrition (moderate): Chronic Evidenced By Suboptimal Energy Intake ( Moderate),Weight Loss (Severe) ,Physical Changes (Moderate) Intake Problem Inadequate Oral Intake Etiology related to increased energy expenditure/COPD and decreased appetite Signs/Symptoms as evidenced by ~50% meal intake and BMI 19.8 Status Active Problem Clinical Problem Chronic Disease or Condition Related Malnutrition Etiology Moderate to severe Protein- Calorie Malnutrition in the context of acute on chronic disease related to increased energy expenditure and inadequate oral intake Signs/Symptoms as evidenced by wt loss~19% x 1 year, BMI 19.8, PO~50% meals and +NFPA with noted moderate muscle and fat wasting in the arms, legs, face and clavicle . Status Active Problem Recommendation Dietitian Recommendations/Changes Continue Regular Diet. Will add 120 ml ensure compact 4 times per day with medpass as tolerated. Will add 240 ml ensure enlive w/ breakfast and Magic Cup BID w/ lunch and dinner as tolerated. Encouraged improved intake at meals; will adjust ONS as needed per pt tolerance and acceptance. Weight / BMI Weight Weight: 130 lb 4.691 oz Body Mass Index (BMI) 19.8 ABG / Lab / Microbiology Data Result Diagrams: 07/19/21 05:10 07/19/21 05:10 Laboratory: Laboratory Results - last 24 hr 07/19/21 05:10: WBC 7.6, RBC 2.73 L, Hgb 8.3 L, Hct 24.6 L, MCV 90.1, MCH 30.4, MCHC 33.7, RDW Std Deviation 46.3 H, RDW Coeff of Heath 14.2, Plt Count 102 L, MPV 10.5, Immature Gran % (Auto) 0.400, Neut % (Auto) 71.0 H, Lymph % (Auto) 14.6 L, [place] % (Auto) 9.6, Eos % (Auto) 4.0, Baso % (Auto) 0.4, Absolute Neuts (auto) 5.4, Absolute Lymphs (auto) 1.11, Nucleated RBC % 0 07/19/21 05:10: Sodium 141, Potassium 3.8, Chloride 112 H, Carbon Dioxide 24.0, Anion Gap 5, BUN 27 H, Creatinine 0.44 L, Estim Creat Clear Calc 128.66, Est GFR (MDRD) Af Amer 185, Est GFR (MDRD) Non-Af 153, BUN/Creatinine Ratio 60.7 H, Glucose 113 H, Calcium 7.3 L, Total Bilirubin 0.60, AST 39 H, ALT 20, Alkaline Phosphatase 189 H, Total Protein 4.2 L, Albumin 2.1 L, Globulin 2.1 L, Albumin/Globulin Ratio 1.0 Microbiology: Microbiology 07/16/21 22:20 Nasal Secretion SARS-CoV-2 Antigen (Rapid) - Final D/C Instructions Discharge Diet: Low fat / Low cholesterol Discharge Activity: Return to Normal Activity Weight Bearing Status: Weight bearing as tolerated Call your doctor if your incision/area has: Continuous Slow Oozing, Sudden Increased Bleeding, Increased Pain/ Swelling, Increased Redness, Foul Smelling Discharge and Swelling at the incision site Call your doctor if you observe: Fever of 101 or Higher, Shortness of breath, Dizziness, Swelling in the ankles, Chest pain, Increased palpitations (irregular heartbeat) and Uncontrolled pain Meaningful Use Info Meaningful Use Diagnoses (Choose all that apply): None applicable Discharge Plan Admission Admit Date/Time: 07/16/21 16:09 Primary Reason for Your Visit: right hip fracture due to mechanical fall Attending Provider: Rain Moreno Primary Care Provider: Cem Carson Discharge Orders/Prescriptions Prescriptions: New aspirin 81 mg Tablet,Delayed Release (Dr/Ec) 81 mg PO 0800,1700 Qty: 42 RF: 0 oxycodone 5 mg tablet 5 mg PO Q6H PRN (Reason: pain) 5 Days Qty: 20 RF: 0 Continued cyclobenzaprine 10 MG tablet 10 mg PO TID PRN PRN (Reason: Pain) RF: 0 pantoprazole 40 mg tablet,delayed release (DR/EC) 40 mg PO DAILY RF: 0 albuterol sulfate 90 mcg/actuation HFA aerosol inhaler 2 inh INHALATION Q4H PRN (Reason: SOB) RF: 0 Discontinued meloxicam 15 mg tablet 15 mg PO DAILY RF: 0 Referrals / Follow Up: Cem Carson MD [Primary Care Provider] - Vincent Grimm DO [STAFF PHYSICIAN] - 08/08/21 Disposition Disposition (needs filled in before D/C Order can be placed): Assisted Facility Charges/Coding Visit Charges Inpatient E&M: 65650 Disch Hosp
--- NOTE | 2021-07-19 11:45 | TREXTCAR_ITS ---
Diet 07/17/21 17:28 Diet: Regular - General Type of Dietary Supplement:: Magic Cup Dessert Is pt able to select menu?: Yes Diet Comments: 240 ml loc ensure enlive w/ breakfast; magic cup BID w/ lunch and dinner Routine Orders/Code Status Enema Type: Fleetz Enema Frequency: Daily PRN Suppository Type: Dulcolax 10mg Suppository Frequency: Daily PRN Wound(s) rt leg: Wound Type: Laceration rt hip: Wound Type: Surgical Incision Therapies Weight Bearing: Weight bearing as tolerated Problem/Diagnosis (1) Closed subcapital fracture of neck of right femur: Status: Acute (2) Fall at home: Status: Acute Allergies/Procedures Done in Hospital Allergies trazodone Allergy (Mild, Verified 07/16/21 14:01) leg cramps naproxen [From Naprosyn] Adverse Reaction (Verified 07/16/21 14:01) Upset Stomach Type of Care/Length of Stay Estimated LOS: Convalescent Care Less Than 30 days Type of Care Needed: Skilled Rehab Potential: Fair Prognosis: Good Additional Orders/Day of Discharge Day of Discharge: 07/19/21 Dietary and Speech Recommendations Dietitian Recommendations/Changes: Continue Regular Diet. Will add 120 ml ensure compact 4 times per day with medpass as tolerated. Will add 240 ml ensure enlive w/ breakfast and Magic Cup BID w/ lunch and dinner as tolerated. Encouraged improved intake at meals; will adjust ONS as needed per pt tolerance and acceptance. Discharge Plan Admission Admit Date/Time: 07/16/21 16:09 Primary Reason for Your Visit: right hip fracture due to mechanical fall Attending Provider: Rain Moreno Primary Care Provider: Cem Carson Discharge Orders/Prescriptions Prescriptions: New aspirin 81 mg Tablet,Delayed Release (Dr/Ec) 81 mg PO 0800,1700 Qty: 42 RF: 0 oxycodone 5 mg tablet 5 mg PO Q6H PRN (Reason: pain) 5 Days Qty: 20 RF: 0 Continued cyclobenzaprine 10 MG tablet 10 mg PO TID PRN PRN (Reason: Pain) RF: 0 pantoprazole 40 mg tablet,delayed release (DR/EC) 40 mg PO DAILY RF: 0 albuterol sulfate 90 mcg/actuation HFA aerosol inhaler 2 inh INHALATION Q4H PRN (Reason: SOB) RF: 0 Discontinued meloxicam 15 mg tablet 15 mg PO DAILY RF: 0 Referrals / Follow Up: Cem Carson MD [Primary Care Provider] - Vincent Grimm DO [STAFF PHYSICIAN] - 08/08/21 Disposition Disposition (needs filled in before D/C Order can be placed): [facility]
--- NOTE | 2021-07-19 14:25 | NURSING ---
Addendum entered by Linda Blanchard 07/19/21 14:35: Yelena Delacruz wanted this RN to keep IV Saline lock intact at this time instead of taking it out. Original Note: Report given to Yelena DELACRUZ in Rehab at this time.
[2021-07-19 14:33] VITALS: BP 92/56; PULSE 98; RESP 18; TEMP 37; O2SAT 94
[2021-07-19] MEDS: Magnesium Hydroxide 30 ML UDC PO (14:38)
== END 2021-07-19 14:50 | disposition skilled nursing facility (03) | DRG 308 ==
LOC: ED 16:07 → MS3 16:26
PROVIDERS: Anesthesiology; Student in an Organized Health Care Education/Training Program; Admitting Provider Family Medicine; Emergency Provider Emergency Medicine; PCP Family Medicine; Visit Provider Student in an Organized Health Care Education/Training Program
PROC: 0QS604Z Reposition Right Upper Femur with Internal Fixation Device, Open Approach (ICD-10-PCS; principal; 2021-07-17 14:15)
DX: S72.011A Unspecified intracapsular fracture of right femur, initial encounter for closed fracture (principal); D63.1 Anemia in chronic kidney disease; K74.60 Unspecified cirrhosis of liver; J44.9 Chronic obstructive pulmonary disease, unspecified; D62 Acute posthemorrhagic anemia; E78.5 Hyperlipidemia, unspecified; K21.9 Gastro-esophageal reflux disease without esophagitis; K75.81 Nonalcoholic steatohepatitis (NASH); E78.00 Pure hypercholesterolemia, unspecified; N18.9 Chronic kidney disease, unspecified; W19.XXXA Unspecified fall, initial encounter; F41.9 Anxiety disorder, unspecified; Z87.891 Personal history of nicotine dependence; G89.29 Other chronic pain; Z79.1 Long term (current) use of non-steroidal anti-inflammatories (NSAID); F32.A Depression, unspecified
CPT/HCPCS: 36415; 71045; 73502; 76000; 80048; 80053; 80076; 82550; 82607; 82728; 82746; 83540; 83550; 83735; 84100; 85025; 85610; 85730; 86850; 86900; 86901; 87426; 93005; 97110; 97116; 97162; 97166; 97535; 97802; 99285; 99406; C1713; J7030; J7120; A4216; J2405

== ENCOUNTER 2021-07-19 14:55 | Inpatient (IN) | payer MEDICAID, SELFPAY ==
[2021-07-19 15:19] VITALS: BMI 21.2
[2021-07-19 15:20] VITALS: BP 127/68; PULSE 103; RESP 18; TEMP 36.3; O2SAT 93
[2021-07-19] MEDS: Aspirin E.C. 81 MG Tablet PO (17:41)
[2021-07-19] MEDS: oxyCODONE 5 MG Tablet PO ×2 (18:20→22:27)
[2021-07-19 19:34] VITALS: O2SAT 94
[2021-07-19 19:35] VITALS: BP 104/54; PULSE 101; RESP 16; TEMP 37.1; O2SAT 96
[2021-07-19] MEDS: Bisacodyl 10 MG Suppository RC (20:50)
[2021-07-19] MEDS: Senna/Docusate Sodium 1 Tablet 2 TABLET PO (20:52)
--- NOTE | 2021-07-19 22:00 | NURSING ---
HOSPITALIST PAGED BY [facility] VALVE INSERTER. ANJELICA ZAMORA GAS METER INSTALLER NOTIFIED THAT PT'S PAIN HAS BEEN UNRELIEVED. OXY ORDER CHANGED TO Q 4 HOURS INSTEAD OF Q 6 HOURS PRN.
[2021-07-20] MEDS: oxyCODONE 5 MG Tablet PO ×6 (02:29→23:29)
[2021-07-20 05:10] LABS: Hematocrit 26.8 % (37-47); Hemoglobin 9.1 g/dL (12.0-15.0); Mean Corpuscular Hgb 31.2 pg (27.0-32.0); Mean Corpuscular Volume 91.8 fL (81-99); Mean Platelet Vol. 10.6 fl (6.2-12.0); Platelet Count 105 K/mm3 (150-450); RBC Distribution Width CV 14.7 % (11.6-14.6); RBC Distribution Width SD 48.4 fl (35.1-43.9); Red Blood Count 2.92 M/mm3 (4.2-5.4); White Blood Count 5.5 K/mm3 (4.4-11.0)
[2021-07-20 05:37] LABS: AST(SGOT) 38 U/L (15-37); Alanine Aminotransfer ALT/SGPT 20 U/L (13-56); Albumin, Serum 2.2 g/dL (3.2-5.0); Alkaline Phosphatase 185 U/L (45-117); Anion Gap 3 (5-15); BUN 25 mg/dL (7-18); Calcium,Total 7.6 mg/dL (8.5-10.1); Chloride 113 mmol/L (98-107); EST Glomerular Filtration Rate 172 mL/min (>60); Est Glom Filt Rate - Afr Amer 208 mL/min (>60); Estimated Creatinine Clearance 151.09 ml/min; Globulin 2.3 g/dL (2.2-4.2); Glucose 91 mg/dL (74-106); Magnesium 1.9 mg/dL (1.6-2.6); Phosphorus 2.9 mg/dL (2.5-4.9); Potassium 4.4 mmol/L (3.5-5.1); Protein, Total 4.5 g/dL (6.4-8.2); Sodium Level 141 mmol/L (136-145)
[2021-07-20] MEDS: Albuterol Sulfate 8 gm Inhaler (60 puffs) 2 PUFF INHALATION ×3 (07:02→20:38)
[2021-07-20 07:36] VITALS: BP 100/50; PULSE 82; RESP 15; TEMP 36.6; O2SAT 94
[2021-07-20] MEDS: Aspirin E.C. 81 MG Tablet PO ×2 (09:05→17:04)
[2021-07-20] MEDS: Pantoprazole Sodium 40 MG Tablet PO (09:05)
[2021-07-20 12:03] VITALS: O2SAT 94
[2021-07-20 19:06] VITALS: BP 106/68; PULSE 78; RESP 17; TEMP 36.3; O2SAT 92
[2021-07-21] MEDS: oxyCODONE 5 MG Tablet PO ×5 (03:29→20:10)
[2021-07-21 07:26] VITALS: BP 104/63; PULSE 85; RESP 12; TEMP 36.4; O2SAT 94
[2021-07-21] MEDS: Aspirin E.C. 81 MG Tablet PO ×2 (07:42→17:23)
[2021-07-21] MEDS: Pantoprazole Sodium 40 MG Tablet PO (07:42)
[2021-07-21] MEDS: Albuterol Sulfate 8 gm Inhaler (60 puffs) 2 PUFF INHALATION ×2 (07:44→12:48)
--- NOTE | 2021-07-21 12:05 | HP.PCM_ITS ---
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 X-ray in the emergency department revealed a right valgus impacted femoral neck fracture. HGB at admission was 11.8 and the PLT's were 110,000. PT was 16.2. Bilirubin was elevated at 2.0 with a direct bilirubin of 0.6. AST and ALT were normal and the alkaline phosphatase was increased at 192. She was admitted to the hospital and Dr. Grimm was consulted. She was taken to surgery on 07/17/21 and underwent Percutaneous screw fixation of the fracture. The post-operative period was unremarkable and PT recommended transfer to acute rehab when medically ready. She was tra nsferred to acute rehab at [facility] on 07/19/21 and will receive 3 hours of therapy daily to restore function/independence at or near her prior level of function. While on the acute side of the hospital she was diagnosed with moderate- severe chronic protein calorie malnutrition. She had been receiving regular RX's of Buprenorphine-Naloxone for the last 2 years up until November of 2020. since that time she has had 3 RX's by 3 different doctors. 2 for Oxycodone and 1 for Flexeril (#30 on 07/05/21 from [facility]. The Oxycodone RX's were from [facility] Lau and [facility]. She admitted to me that she has been on Suboxone in the past for narcotic use due to severe back pain. She quit taking it in October 2020 because it made her feel ill. She also told me that she has withdrawn from narcotics in the past and from Suboxone. she states she is clean now and 1 of the prescriptions for oxycodone in the past 6 months was after her TIPS procedure......at [facility]. She sees a liver specialist, Dr. Duron who recommended a TIPS procedure and she had the procedure a few months ago at [facility]. She has been treated for hepatitis. She admits to not taking Aldactone or Lasix or her Vitamin D supplement. She lost a lot of weight after the TIPS. Has been on a lot of antidepressants in the past including Zoloft and Paxil and Remeron and Wellbutrin and states none of them helped. She has been seen at [facility] in the past. Tox screens at [facility] + for amphetamines and Methamphetamine was + in July and August 2015. + for benzo's in May of 2015. She has multiple scars on the chest, arms and legs....she tells me that this is from the hepatitis and it went away after she was treated for Hep C.......these scars have the ap pearance of Meth picking scars. She has custody of her Granddaughter. Her last visit with Dr. Duron was in November of 2020 and this was a virtual visit......she was told to follow up in 3 months and has not been seen since. She can not recall how she fell but, she laid there from 2 AM to 2 PM and did not tell her granddaughter to call 911? No tox screen was done in the ED. [facility] Medical History (Updated 07/21/21 @ 18:[address] Milagros Terry, DO) Anxiety and depression Atopic dermatitis Back pain Cirrhosis of liver COPD (chronic obstructive pulmonary disease) Cystitis Degenerative arthritis H pylori ulcer Hematemesis Heroin addiction Herpes zoster High cholesterol History of alcoholism History of hepatitis C History of illicit drug use Hyperlipidemia Impetigo Injury of head and neck Peptic ulcer disease Pleural effusion on right Restless legs Seasonal allergies Sinusitis, acute Thrombocytopenia Tobacco dependence due to cigarettes Vitamin D deficiency Home Medications albuterol sulfate 2 inh INHALATION Q4H PRN 07/16/21 [History Last Taken 07/15/21] pantoprazole 40 mg PO DAILY 07/16/21 [History Last Taken 1 Week Ago ~07/09/21] aspirin 81 mg PO 0800,1700 07/19/21 [History Last Taken Unknown] oxycodone 5 mg PO Q6H PRN 5 Days #20 tab 07/19/21 [Rx Last Taken Unknown] Allergy/AdvReac Type Severity Reaction Status Date / Time trazodone Allergy Mild leg cramps Verified 07/16/21 14:01 naproxen [From Naprosyn] AdvReac Upset Verified 07/16/21 14:01 Stomach Family History (Updated 07/21/21 @ 17:[address] Milagros Terry DO) Mother FH: mental illness HLD (hyperlipidemia) Heart disease Thyroid disorder Aunt No problems noted. Grandmother Heart disease Aunt Diabetes HLD (hyperlipidemia) Hypertension Grandfather COPD (chronic obstructive pulmonary disease) Surgical History (Updated 07/21/21 @ 17:[address] Milagros Terry DO) Cervical vertebral fusion H/O colonoscopy H/O: hysterectomy History of back surgery History of back surgery History of breast biopsy History of D&C History of esophagogastroduodenoscopy (EGD) History of open reduction and internal fixation (ORIF) procedure S/P cholecystectomy S/P shoulder surgery S/P TIPS (transjugular intrahepatic portosystemic shunt) Status post lumbar surgery Social History (Updated 07/21/21 @ 17:[address] Milagros Terry DO) adopted: No household members: other details: Her granddaughter lives with her (17 years old). She has custody X 11 year housing: apartment number of children: 3 financial difficulty paying for basics: not very hard service: No current occupational status: unemployed Smoking Status: Current every day smoker tobacco type: cigarettes Tobacco: How many years used: 32 Electronic Cigarette Use: not used how long ago did patient quit smoking: started smoking at age 28 and smoked 1/2- 1.5 PPD....she is still smoking alcohol intake: former details: She has been an alcoholic in the past. quit in 2001 substance use type: does not use ROS Review of Systems ROS Unobtainable: other Details: Not sure how reliable she is. She is mixing up dates and the ammonia level is increased at 57. She has a hx of memory problems. She was not clear on how she came to be on Suboxone and why the RX's suddenly stopped in October of 2020. She forgot to tell me that she had been an alcoholic and that she had used Heroin in the past and METH (+ tox for amphetamines and methamphetamine in 2016 at [facility]). Constitutional Constitutional: Reports change in weight, fatigue, frequent falls, poor appetite and weight loss Eyes Eyes: Reports systems reviewed and no addt'l complaints, except as documented ENT HEENT: Denies abnormal hearing, dental pain, dizziness, dysphagia, loss taste/smell, mouth lesions, mouth pain, odynophagia, rhinorrhea or sore throat Cardiovascular Cardiovascular: Reports dyspnea on exertion, easily tiring during activity, edema and other Details: She takes Lasix only when she has swelling in the legs and this is infrequent since the TIPS procedure. ; Denies chest pain or dyspnea at rest Respiratory/Chest Respiratory/Chest: Reports dyspnea on exertion and other Details: uses her Albuterol inhaler every 4 hours ; Denies cough or hoarseness Gastrointestinal Gastrointestinal: Reports dyspepsia and weight changes; Denies abdominal pain, change in bowel habits, diarrhea, hematemesis, hematochezia, taste impaired or vomiting Genitourinary Genitourinary: Denies burning urination, difficulty urinating, genital pain, urinary frequency, urinary hesitancy or urinary incontinence Musculoskeletal Musculoskeletal: Reports back pain, difficulty walking, extremity pain, muscle weakness and neck pain Integumentary Integumentary: Reports dry skin and other Details: scarring on the arms, legs and chest - I suspect this may be related to use of Methamphetamine in the past ; Denies jaundice Neurologic Neurologic: Reports confusion, frequent falls, memory loss and tremor(s); Denies abnormal hearing, disequilibrium, focal weakness, headache(s), other visual disturbances, seizures, sensory deficit or tingling Psychiatric Psychiatric: Reports anxiety, depression and difficulty concentrating; Denies hallucinations Endocrine Endocrinology: Reports systems reviewed and no addt'l complaints, except as documented Hematologic/Lymphatic Hematologic/Lymphatic: Reports other Details: bruises easily Vital Signs Vital Signs Vital Signs: 07/20/21 19:06 07/21/21 07:26 07/21/21 09:05 Temperature 97.4 F L 97.6 F L Temperature Source Temporal Temporal Pulse Rate 78 85 Respiratory Rate 17 12 Blood Pressure 106/68 104/63 Blood Pressure Mean 80 76 Blood Pressure Source Monitor Monitor Blood Pressure Position Sitting Semi-Fowlers Blood Pressure Location Right Arm Right Arm Pulse Ox 92 94 Oxygen Delivery Method Room Air Room Air Room Air Weight Weight: 139 lb 5.314 oz Body Mass Index (BMI) 21.2 Physical Exam Const alert, oriented x3 and no apparent distress Constitutional Narrative: She is sitting in bed when I was talking with her. Appears comfortable. General Appearance: cooperative HEENT normocephalic and hearing grossly normal bilaterally HEENT Narrative: MM are moist. no thrush. No pharyngeal injection or exudate. Head and Scalp: normocephalic and atraumatic Eyes PERRL, EOMs intact bilaterally, conjunctivae normal and no scleral icterus General Eye: normal appearance of both eyes Neck No nuchal rigidity, no lymphadenopathy, no JVD and no carotid bruits General: trachea midline Carotids: normal carotid upstroke; Negative for carotid tenderness Lymph Lymphatic: no lymphadenopathy noted Resp normal respiratory effort, normal air movement and no use of accessory muscles Resp Narrative: she has a few coarse crackles in the R base only and she either has a small R effusion on the CXR at admission or she has scarring related to pleural drain in the past. Effort and Inspection: able to speak in complete sentences Cardio regular rate, regular rhythm, S1 normal heart sound, S2 normal heart sound, no murmurs, no rub and no gallops Cardio Narrative: No ectopy GI normal to inspection, nondistended, normoactive bowel sounds and non-tender GI Narrative: no guarding with palpation. No pitting in the flanks. Mildly tympanic. Extremity no calf tenderness and no pedal edema Extremity Narrative: She is c/o knee pain BL. There is no joint effusion, no significant swelling and no erythema or open wounds. The nail beds on the fi ngernails are very pale and she also has pale palpebral conjunctiva but cap refill is good. Skin Skin Narrative: Multiple scars on the arms, legs, chest which she states are due to hepatitis/pruritus but, she has been + for methamphetamine in the past and they resemble the scars we see with picking associated with Meth. Some small areas of ecchymosis on the arms. General Skin Exam: Negative for jaundice Rashes: no rashes Trauma: Negative for abrasion Wound Narrative: She has an incision in the R hip from recent ORIF for a femoral neck fracture. Results Medical Records Data Medical Nutrition Assessment Dietitian: Malnutrition Criteria Met Start: 07/20/21 15:08 Freq: Status: Active Protocol: Document 07/20/21 15:08 (Rec: 07/20/21 15:08 [id number]) Nutrition Malnutrition Evidence of Malnutrition Exists Yes Malnutrition (moderate): Chronic Evidenced By Suboptimal Energy Intake ( Moderate),Weight Loss ( Moderate) Clinical Problem Chronic Disease or Condition Related Malnutrition Etiology moderate, chronic malnutrition r/t inadequate energy intake Signs/Symptoms as evidenced by unintentional wt loss of 30#/19% x 1 year, estimated PO intake meeting < 75% of estimated energy needs x 1 year, moderate muscle and fat wasting in the arms, legs, face and clavicles. Status Active Problem Recommendation Dietitian Recommendations/Changes regular diet, ensure compact TID, magic cup BID d/t malnutrition Lab / Micro Data Result Diagrams: 07/20/21 04:35 07/20/21 04:35 Labs: Laboratory Results - last 24 hr 07/21/21 05:35: Ammonia 57.0 H Assessment & Plan Assessment/Plan (1) Physical debility: (2) Fall at home: QUALIFIERS: Encounter type: subsequent encounter Qualified Code(s): W19.XXXD - Unspecified fall, subsequent encounter; Y92.009 - Unspecified place in unspecified non-institutional (private) residence as the place of occurrence of the external cause (3) Closed subcapital fracture of neck of right femur: QUALIFIERS: Encounter type: initial encounter Qualified Code(s): S72.011A - Unspecified intracapsular fracture of right femur, initial encounter for closed fracture (4) History of open reduction and internal fixation (ORIF) procedure: (5) Acute blood loss anemia: (6) Hyperammonemia: (7) Protein-calorie malnutrition, moderate: (8) Pleural effusion on right: (9) Hypoalbuminemia: (10) Tobacco dependence due to cigarettes: (11) Vitamin D deficiency: (12) Thrombocytopenia: (13) Knee pain: QUALIFIERS: Chronicity: chronic Laterality: bilateral Qualified Code(s): M25.561 - Pain in right knee; M25.562 - Pain in left knee; G89.29 - Other chronic pain (14) S/P TIPS (transjugular intrahepatic portosystemic shunt): (15) COPD (chronic obstructive pulmonary disease): (16) Cirrhosis of liver: (17) History of illicit drug use: PLAN: PLAN PT for gait stability OT for ADL's Analgesics as needed Bowel protocol - DC the Senna/docusate and start Lactulose Fall precautions Assess for Anxiety/Depression GI prophylaxis with Protonix DVT prophylaxis with ASA 81 mg BID per ortho. I will need to discuss this with Dr. Grimm. She has had hematemesis in the past and varices and is c/o epigastric discomfort even with the Pantoprazole. Her PT is mildly prolonged from the cirrhosis and we may be better off with SCD's and HAYLIE hose as long as she is in rehab. Or we could put her on very low dose Coumadin and prolong the INR to 1.6....at least it can be reversed if we run into a bleeding problem. Follow up with Dr. Grimm, Dr. Duron, Dr. Carson following DC from Rehab check a hemoccult stool and BMP and HH in the AM Continue the Pantoprazole Start a vitamin D supplement She is agreeable to taking lactulose once a day and it has been ordered. I discontinued the senna. Will obtain Dr. Baldwin's records to see why the Suboxone was abruptly discontinued in October 2020. Records have been requested from the [facility] and from Dr. Duron - and they have been personally reviewed. Try arthritis compounded cream on the low back and the knees. She is taking the Oxycodone every 4 hours......in 2-3 days will go back to Q 6 H and will not give more than 14-20 at [place]. Unit Exclusion This patient is an acute care inpatient being housed in the excluded unit because of capacity issues related to the disaster or emergency.: Yes Charges/Coding Visit Charges Inpatient E&M: 57274 Init Hosp L3
--- NOTE | 2021-07-21 12:23 | REHABEVAL_ITS ---
Admission Information Primary Diagnosis:: Debility due to R femoral neck fracture due to a fall with ORIF on 07/17/[address] Grimm. Status Changes from Prescreening?: No changes Identified Actual Problem List:: Falls, Skin Intergrity, Pain, ALteration in Cmfrt, Alteration in Nutrition, Mobility Impaired, Self Care Deficit and Alteration- Leisure Activ. Potential Problem List:: DVT, Bleeding, Infection, UTI, Aspiration, Falls, Skin Integrity and Depression Risk of Complications DVT: LMWH and HAYLIE Hose Bleeding: Monitor Lab Values, Nursing to Teach Precautions for anti-coagulation therapy., Wound, if applicable, to be assessed every shift. and Stroke patients assessed for lethargy or change in status. Infection: Clinical Staff to Monitor for S/S of infection: and S/S of infection include fever, redness, warmth, etc. Urinary Tract Infection: Monitor for frequency, burning, discomfort, or incontinence. and Nursing will obtain urine sample for urinalysis and C&S when ordered. Aspiration: Clinical staff will monitor for coughing, drooling, congestion., Speech will evaluate swallowing and dsyphasia. and Nursing will monitor patient swallowing during meals. Falls: Patient will be evaluated for Fall Precautions and Patient will be placed on Fall Precautions as indicated per protocol. Skin Breakdown: Nursing will assess skin daily using assessment tool. and Nursing will place on Skin Breakdown Precautions as indicated. Pain: Clinical staff will assess patient's pain level per protocol., Medications will be given, if needed, and the pain level reassessed. and Other methods: Massage, distraction, decrease stimulus, etc. used PRN. Plan of Care Patient requires physician specializing in physical medicine and rehab oversight to provide close medical supervision of rehab issues including: Pain Management, Sleep Problems, Bowel and Bladder, Medical and co-morbidity Management, DVT prophylaxis, Rehabilitation Leadership and Coordination of treatment team Patient needs Physical Therapy: For a minimum of 1 hour and At least 5 out of 7 days Patient needs Physical Therapy to improve:: Mobility, Strengthening, Transfers, Stretching, ROM, Endurance, Stairs, Gait and Balance Patient needs Occupational Therapy: For a minimum of 1 hour and At least 5 out of 7 days Patient needs Occupational Therapy to improve ADL's incl.: Eating, Grooming, Bathing, Dressing, Toileting, Toilet transfers, Community Reintegration, Higher functioning activities, Household tasks, Adaptive Equipment, Splinting and Other activities as determined Patient requires 24/7 Rehabilitation Nursing for: Pain Issues, Identifying and preventing risk factors, Monitoring and reporting current medical conditions, Assisting with ambulation, transfer, and all ADL's, Teaching patients about disease process and medications, Family teaching, Providing safe environment, Bowel and Bladder Issues, Skin integrity and Medication Management Patient needs Perennial House Manager/ Case Management for: Discharge Planning, Arranging Home Equipment or Services and Family Interventions Patient needs Dietary and Nutrition Services for: Adequate Nutrition, Nutritional Supplements and Nutritional Education Goals Patient will remain: free from falls and or injury at time of discharge. Patient will perform bed mobility at: MOD I level of assist. Patient will complete transfers from bed to chair at: MOD I level of assist. Patient will ambulate: - (150 ft with a WW) Patient will complete upper body dressing at: MOD I level of assist. Patient will complete lower body dressing at: MOD I level of assist. (with AE) Patient will complete toileting at: MOD I level of assist. Patient will perform bathing at: - (supervision or better) Patient will complete grooming at: MOD I level of assist. Patient will complete home management skills at: MOD I level of assist. Patient will achieve: - (4 + 15 steps to access her home - she lives in a second story duplex) Patient will have pain level of: of 3 or less Patient's skin will: remain intact Patient will receive: adequate nutrition. Discharge Planning Pt Prognosis for Sig. Practical Improv. w/in Reasonable Time: Good Estimated Length of stay (days): 21 Anticipated D/C Destination: Home with Home Health Was Preadmission Assessment Accurate?: Yes
--- NOTE | 2021-07-21 16:29 | CASEMGMT ---
Social Work Met with patient for initial assessment. Discussed code status - confirmed full code. Pt has HCPOA on file naming [place], but pt stated she moved out of state and no longer wants her to be POA. Offered to complete new paperwork, pt does not want a POA. SW to assist with completing new document to void HCPOA. Pt would like primary contact be her dtr, Le and secondary contact be her other dtr, Vickie. Chart reflects. Explained [facility] insurance with [employer] / and continued stay is not guaranteed with each review. Pt reports she does not have a CM through insurance to connect her with resources in the community. Pt lives in an apartment with 4+15 steps to enter main level. Prior, she was crawling up the stairs, but could go down. She has reportedly asked the landlord for a new apartment with no steps or for a ramp, but he denied. SW offered to contact landlord - pt agreeable - landlord's name is Basilio John. Pt lives with her 17 year old granddaughter, Talita. Pt reports her dtr, Tamar, disowned Talita and she has been living with her. It seems gddtr has some social anxiety - she does not drive or able to go to the grocery store alone. Pt was able to drive prior and use motorized scooter to grocery shop - cooks simply meals or microwaves meals. However, pt reports to not having an appetite and eating well prior. Pt was dx with malnutrition. Discussed alcohol/tobacco/drugs. Pt denies alcohol, quit smoking a year ago, but still gets cravings so she has just a half of one to get through the day and only used maybe heroin, I can't remember it was so long ago twice via needle, which is how she got Hep. C. Pt states she asked the mason if he had anything before using his needle, and mason denied. Pt states she would like him to pay, can't something be done about that?. SW offered to look into laws further. Pt appreciative. Pt states the Hep. C cause the liver cirrhosis. Pt also reports to having chronic back pain. Dr. Terry reports pt having a long history of getting pain medications through different Drs/ERs from her OARS report. Inquired to pt about pain. She denied Dr shopping or going to ERs - I don't do that. She stated for the last 2 years, she had no pain, but then 3 weeks ago she opened the door and tweaked something in her back that caused the pain again. Inquired about mood. Pt stated she was on Zoloft several years ago, but it didn't help, but would like to get on an anxiety med since that is not controlled. Reported to Dr. Terry to discuss. Discussed Palliative Care - help with pain, liver dx, decline in ADLs - pt agreed. Referral made to [facility] via email. Order entered. Will Team '. Offered ongoing assistance. SW to continue to follow. Beckie Shaffer DRAPERY INSTALLER CUT OUT OPERATOR
[2021-07-21 17:33] VITALS: O2SAT 94
[2021-07-21 19:25] VITALS: BP 135/65; PULSE 80; RESP 16; TEMP 36.4; O2SAT 98
[2021-07-21] MEDS: Arthritis Pain Compound 60 CLICK TUBE TOPICAL (20:09)
[2021-07-21] MEDS: Acetaminophen 325 MG Tablet 650 MG PO (20:10)
[2021-07-22] MEDS: oxyCODONE 5 MG Tablet PO ×6 (00:08→20:32)
[2021-07-22 05:44] LABS: Hematocrit 28.2 % (37-47); Hemoglobin 9.4 g/dL (12.0-15.0)
[2021-07-22 06:33] LABS: Anion Gap 7 (5-15); BUN 20 mg/dL (7-18); BUN/Creat Ratio 48.2 RATIO (10-20); Calcium,Total 7.9 mg/dL (8.5-10.1); Chloride 112 mmol/L (98-107); Creatinine, Serum 0.42 mg/dL (0.55-1.02); EST Glomerular Filtration Rate 166 mL/min (>60); Est Glom Filt Rate - Afr Amer 201 mL/min (>60); Estimated Creatinine Clearance 143.89 ml/min; Glucose 98 mg/dL (74-106); Potassium 4.5 mmol/L (3.5-5.1); Sodium Level 140 mmol/L (136-145)
[2021-07-22 08:04] VITALS: BP 97/53; PULSE 77; RESP 16; TEMP 36.8; O2SAT 97
[2021-07-22] MEDS: Pantoprazole Sodium 40 MG Tablet PO (08:40)
[2021-07-22] MEDS: Lactulose 20 GM/30 ML UDC 10 GM PO (08:40)
[2021-07-22] MEDS: Cholecalciferol (VIT D3) 25 MCG TABLET (1,000 UNITS) PO (08:44)
[2021-07-22] MEDS: Albuterol Sulfate 8 gm Inhaler (60 puffs) 2 PUFF INHALATION ×3 (08:45→20:34)
[2021-07-22] MEDS: Arthritis Pain Compound 60 CLICK TUBE TOPICAL ×2 (11:10→20:35)
[2021-07-22 19:07] VITALS: BP 121/62; PULSE 87; RESP 16; TEMP 36.6; O2SAT 98
[2021-07-22 22:00] VITALS: PULSE 87; RESP 15; O2SAT 98
[2021-07-23] MEDS: oxyCODONE 5 MG Tablet PO ×6 (00:36→23:23)
[2021-07-23 07:35] VITALS: BP 101/59; PULSE 84; RESP 16; TEMP 37.1; O2SAT 94
[2021-07-23] MEDS: Arthritis Pain Compound 60 CLICK TUBE TOPICAL ×2 (09:06→19:29)
[2021-07-23] MEDS: Lactulose 20 GM/30 ML UDC 10 GM PO (09:06)
[2021-07-23 09:37] VITALS: RESP 22
--- NOTE | 2021-07-23 11:35 | CASEMGMT ---
Social Work Pt signed a letter stating that her prior Healthcare POA is revoked. SW gave pt the original and copies, and a copy placed on the chart. SW did encourage pt to complete a new Healthcare POA, pt declined at this time. Pt did have a friend as POA prior. Pt is not , has 3 daughters. SW explained that without POA, the three daughters would need to make decisions together. Pt states her daughters do not get along. SW again encouraged her to complete the document to name who she would want to be her decision maker should it be needed. Pt declined. SW let pt know that if she would like to complete this document at some point, to let the staff know and SW will assist her in completing the forms. Pt states understanding. DELFINO Huang
[2021-07-23] MEDS: Amox/Clavulanate 875 MG Tablet PO (18:12)
[2021-07-23] MEDS: Albuterol Sulfate 8 gm Inhaler (60 puffs) 2 PUFF INHALATION (19:55)
[2021-07-23 22:00] VITALS: BP 125/62; PULSE 85; RESP 18; RESP 19; TEMP 36.6; O2SAT 93; O2SAT 97
[2021-07-24] MEDS: oxyCODONE 5 MG Tablet PO ×2 (04:09→08:34)
[2021-07-24] MEDS: Albuterol Sulfate 8 gm Inhaler (60 puffs) 2 PUFF INHALATION (04:11)
[2021-07-24 07:44] VITALS: BP 102/47; PULSE 83; RESP 16; TEMP 36; O2SAT 100
[2021-07-24] MEDS: Amox/Clavulanate 875 MG Tablet PO (08:23)
[2021-07-24] MEDS: Pantoprazole Sodium 40 MG Tablet PO (08:23)
[2021-07-24] MEDS: Lactulose 20 GM/30 ML UDC 10 GM PO (08:23)
[2021-07-24] MEDS: Cholecalciferol (VIT D3) 25 MCG TABLET (1,000 UNITS) PO (08:23)
[2021-07-24] MEDS: Arthritis Pain Compound 60 CLICK TUBE TOPICAL (08:26)
--- NOTE | 2021-07-24 09:45 | CASEMGMT ---
Addendum entered by Beckie Shaffer 07/24/21 10:01: Recontacted Lizzeth at [facility] to clarify last known positive tox screen per pt's medical record was 2015. Upon admission to ED 07/16/21, a tox screen was not completed. The OARS report showed pt was dr alexis and admitting to multiple EDs for pain medication. The last known positive tox screen was positive for amphetamines and meth. Original Note: Social Work Received call from nurse that pt is refusing therapy and wants to leave AMA. spoke with pt and pt wanting to leave AMA. CHIQUIS spoke with pt and provided AMA paperwork. Pt read paperwork but refused to sign. Provided copy to pt and placed copy in chart. Pt understands she will receive no follow up services, meds ordered, Drs orders, HHC or DME services. Pt is not of age to contact APS. However, pt is primary caregiver to 17 year old daughter and there is concern about the drug use in the home, a safe environment for the gddtr and possibly what she could be subjected to in the home. Contacted [facility] - made referral for listed concerns and hx of OARS report and positive tox screens. Plan: DC home AMA 07/24, [facility] referral completed ELADIO Rodríguez
--- NOTE | 2021-07-24 10:20 | DS.PCM_ITS ---
Providers Date of Admission: 07/19/21 Date of Discharge: 07/24/21 Primary Care Physician: Dr. Cem Carson MD Reason For Visit: RT HIP FRACTURE Diagnosis Discharge Diagnosis (1) Physical debility: Status: Acute Code(s): R53.81 - Other malaise (2) Fall at home: Status: Acute Code(s): W19.XXXA - Unspecified fall, initial encounter; Y92.009 - Unspecified place in unspecified non-institutional (private) residence as the place of occurrence of the external cause Qualifiers: Encounter type: subsequent encounter Qualified Code(s): W19.XXXD - Unspecified fall, subsequent encounter; Y92.009 - Unspecified place in unspecified non-institutional (private) residence as the place of occurrence of the external cause (3) Closed subcapital fracture of neck of right femur: Status: Acute Code(s): S72.011A - Unspecified intracapsular fracture of right femur, initial encounter for closed fracture Qualifiers: Encounter type: initial encounter Qualified Code(s): S72.011A - Unspecified intracapsular fracture of right femur, initial encounter for closed fracture (4) History of open reduction and internal fixation (ORIF) procedure: Status: Acute Code(s): Z98.890 - Other specified postprocedural states (5) Acute blood loss anemia: Status: Acute Code(s): D62 - Acute posthemorrhagic anemia (6) Hyperammonemia: Status: Chronic Code(s): E72.20 - Disorder of urea cycle metabolism, unspecified (7) Protein-calorie malnutrition, moderate: Status: Chronic Code(s): E44.0 - Moderate protein-calorie malnutrition (8) Pleural effusion on right: Status: Acute Code(s): J90 - Pleural effusion, not elsewhere classified (9) Hypoalbuminemia: Status: Acute Code(s): E88.09 - Other disorders of plasma-protein metabolism, not elsewhere classified (10) Tobacco dependence due to cigarettes: Status: Chronic Code(s): F17.210 - Nicotine dependence, cigarettes, uncomplicated (11) Vitamin D deficiency: Status: Chronic Code(s): E55.9 - Vitamin D deficiency, unspecified (12) Thrombocytopenia: Status: Chronic Code(s): D69.6 - Thrombocytopenia, unspecified (13) Knee pain: Status: Chronic Code(s): M25.569 - Pain in unspecified knee Qualifiers: Chronicity: chronic Laterality: bilateral Qualified Code(s): M25.561 - Pain in right knee; M25.562 - Pain in left knee; G89.29 - Other chronic pain (14) S/P TIPS (transjugular intrahepatic portosystemic shunt): Status: Chronic Code(s): Z95.828 - Presence of other vascular implants and grafts (15) COPD (chronic obstructive pulmonary disease): Status: Chronic Code(s): J44.9 - Chronic obstructive pulmonary disease, unspecified (16) Cirrhosis of liver: Status: Chronic Code(s): K74.60 - Unspecified cirrhosis of liver (17) History of illicit drug use: Status: Chronic Code(s): Z87.898 - Personal history of other specified conditions Plan: Daisy left AMA. She refused to do therapy. She still has jessica. She left prior to getting her discharge instructions and she left without prescriptions. Medications at Discharge Home Medications albuterol sulfate 2 inh INHALATION Q4H PRN 07/16/21 pantoprazole 40 mg PO DAILY 07/16/21 aspirin 81 mg PO 0800,1700 07/19/21 oxycodone 5 mg PO Q6H PRN 5 Days #20 tab 07/19/21 Hospital Course Operations - (Percutaneous screw fixation of a right valgus impacted femoral neck fracture by Dr. 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 She stated she laid on the floor in her residence from 2 AM until 2 PM because she did not want to bother calling 911 in the middle of the night. She told me that she did not know how she fell. Her 17 YO granddaughter lives with her and she did not call 911 either. X-ray in the emergency department revealed a right valgus impacted femoral neck fracture. HGB at admission was 11.8 and the PLT's were 110,000. PT was 16.2. Bilirubin was elevated at 2.0 with a direct bilirubin of 0.6. AST and ALT were normal and the alkaline phosphatase was increased at 192. there was no drug screen done in the ER. She tested + for methamphetamine in July and August of 2015. She was admitted to the hospital and Dr. Grimm was consulted. She was taken to surgery on 07/17/21 and underwent Percutaneous screw fixation of the fracture. The post-operative period was unremarkable and PT recommended transfer to acute rehab when medically ready. She was transferred to acute rehab at [facility] on 07/19/21 and will receive 3 hours of therapy daily to restore function/independence at or near her prior level of function. I obtained records from other physician's she has seen and I also reviewed her OARRS report. She initially denied using narcotics as an OP and told me she contracted Hep C from an old boyfriend. When I asked her why she had been getting Suboxone she admitted that she had been addicted to narcotics in the past. she had been receiving Suboxone for at least [address] Sánchez Baldwin and this abruptly stopped in October of 2020. When I asked her why it stopped she told me she did not like the way it made her feel. We attempted to reach Dr. Baldwin however the number listed on the OARRS report was actually a p ersonal VM. she has been on Meth in the past and had a positive drug screen for meth in July and August of 2015. she has scars on the chest, arms and legs from picking. She told me the scars were from itching when she had hepatitis C and it all went away after Epcluse which she received from Dr. Duron at the [facility] [place]. Daisy follows intermittently with Dr. Duron for cirrhosis and she has had a TIPS in the past 6 months. Daisy has custody of her 17 YO granddaughter since the granddaughter was 6 YOA. Daisy refused to do therapy on the morning of 07/24/21. I explained that she would need to be downgraded because you must do 3 hours of therapy daily to stay in acute rehab. she told me that she was leaving. I said that she would need to leave AMA because I did not feel she is safe to go home at this point and she has [address] to enter her residence. She told me that she has left hospitals AMA in the past and she would do it again. she very quickly arranged for a ride and left without even waiting for printed DC instructions. She did not receive any prescriptions at DC. She still had the jessica in her incision when she left. I informed Dr. Grimm of her departure and I am hopeful that Daisy will followup with Dr. Grimm to at least have the jessica removed. She is at increased risk for infection due to cirrhosis/immunosuppression. I discussed the situation with her granddaughter with the SW and my concern that Daisy is continuing to use illicit drugs and we agreed that Child Protective Services should be notified and she was going to take care of that. Physical Exam Narrative Pt left prior to me being able to examine her. She had been started on an antibiotic the day prior to leaving AMA for a reported cough with SOB. She has been afebrile. The pulse ox has been appropriate on RA, COVID and respiratory panel were negative. Sputum culture appears to be normal respiratory desmond. Her lungs were CTA on my exam on 07/22/21. She was not coughing when I spoke to her on 07/24/21 and she had no tachypnea and no respiratory distress. Medical Records Data Medical Nutrition Assessment Dietitian: Malnutrition Criteria Met Start: 07/20/21 15:08 Freq: Status: Active Protocol: Document 07/20/21 15:08 (Rec: 07/20/21 15:08 [id number]) Nutrition Malnutrition Evidence of Malnutrition Exists Yes Malnutrition (moderate): Chronic Evidenced By Suboptimal Energy Intake ( Moderate),Weight Loss ( Moderate) Clinical Problem Chronic Disease or Condition Related Malnutrition Etiology moderate, chronic malnutrition r/t inadequate energy intake Signs/Symptoms as evidenced by unintentional wt loss of 30#/19% x 1 year, estimated PO intake meeting < 75% of estimated energy needs x 1 year, moderate muscle and fat wasting in the arms, legs, face and clavicles. Status Active Problem Recommendation Dietitian Recommendations/Changes regular diet, ensure compact TID, magic cup BID d/t malnutrition Weight / BMI Weight Weight: 136 lb 10.986 oz Body Mass Index (BMI) 21.2 ABG / Lab / Microbiology Data Result Diagrams: 07/22/21 05:33 07/22/21 05:33 Microbiology: Microbiology 07/23/21 18:00 Sputum, Expectorated/Coughed Gram Stain - Preliminary 07/23/21 12:20 Mucosa - Nasopharyngeal Respiratory Panel (PCR) - Final 07/23/21 12:21 Nasal Secretion SARS-CoV-2 Antigen (Rapid) - Final 07/21/21 15:15 Stool Stool Occult Blood (ALIDA) - Final Meaningful Use Info Meaningful Use Diagnoses (Choose all that apply): None applicable Discharge Plan Admission Admit Date/Time: 07/19/21 14:55 Attending Provider: Milagros Terry Primary Care Provider: Cem Carson Discharge Orders/Prescriptions Prescriptions: No Action pantoprazole 40 mg tablet,delayed release (DR/EC) 40 mg PO DAILY RF: 0 albuterol sulfate 90 mcg/actuation HFA aerosol inhaler 2 inh INHALATION Q4H PRN (Reason: SOB) RF: 0 oxycodone 5 mg tablet 5 mg PO Q6H PRN (Reason: pain) 5 Days Qty: 20 RF: 0 aspirin 81 mg tablet,delayed release (DR/EC) 81 mg PO 0800,1700 RF: 0 Referrals / Follow Up: [facility] [Other] - 07/30/21 10:45 am Cem Carson MD [Primary Care Provider] - Vincent Grimm DO [STAFF PHYSICIAN] - 08/08/21 Disposition Disposition (needs filled in before D/C Order can be placed): Against Medical Advice Charges/Coding Visit Charges Inpatient E&M: 93689 Disch Hosp
--- NOTE | 2021-08-06 15:42 | CASEMGMT ---
Social Work Received mandated weighmaster letter from [facility] CPS stating the referral was not accepted for assessment/investigation at this time. Beckie Shaffer MSW [employer] SOCIAL [employer]ER
== END 2021-07-24 10:20 | disposition left against medical advice (07) | DRG 862 ==
PROVIDERS: Admitting Provider Internal Medicine; PCP Family Medicine; Visit Provider Internal Medicine
DX: S72.011D Unspecified intracapsular fracture of right femur, subsequent encounter for closed fracture with routine healing (principal); E43 Unspecified severe protein-calorie malnutrition; D69.6 Thrombocytopenia, unspecified; J90 Pleural effusion, not elsewhere classified; K74.60 Unspecified cirrhosis of liver; J44.9 Chronic obstructive pulmonary disease, unspecified; K21.9 Gastro-esophageal reflux disease without esophagitis; E78.5 Hyperlipidemia, unspecified; F17.210 Nicotine dependence, cigarettes, uncomplicated; W19.XXXD Unspecified fall, subsequent encounter; B19.20 Unspecified viral hepatitis C without hepatic coma; G89.29 Other chronic pain; Z95.828 Presence of other vascular implants and grafts; Z79.82 Long term (current) use of aspirin; Z68.20 Body mass index [BMI] 20.0-20.9, adult; Z23 Encounter for immunization
CPT/HCPCS: 36415; 71045; 73502; 76000; 80048; 80053; 80076; 82140; 82274; 82550; 82607; 82728; 82746; 83540; 83550; 83735; 84100; 85014; 85018; 85025; 85027; 85610; 85730; 86850; 86900; 86901; 87070; 87077; 87186; 87205; 87426; 87633; 93005; 97110; 97116; 97162; 97166; 97530; 97535; 97802; 99251; 99285; 99406; C1713; J7030; J7120; 90686; A4216; G0463; J2405

== ENCOUNTER 2021-08-07 14:34 | Emergency (ER) | payer MEDICAID, SELFPAY ==
[2021-08-07 14:35] VITALS: BP 102/63; PULSE 94; RESP 16; TEMP 36.7; O2SAT 99; BMI 18.7
--- NOTE | 2021-08-07 14:40 | EKG12_ITS ---
Test Reason : CP Blood Pressure : / mmHG Vent. Rate : 094 BPM Atrial Rate : 094 BPM P-R Int : 124 ms QRS Dur : 078 ms QT Int : 358 ms P-R-T Axes : 075 084 075 degrees QTc Int : 447 ms Normal sinus rhythm Normal ECG Confirmed by GERMAN RAZO, BRIGITTE ([id number]), medical transcription editor SANDY MIX ([id number]) on 08/11/2021 10:47:43 A M Referred By: BAILEE/HECTOR Confirmed By:VICKI PORTER MD
--- NOTE | 2021-08-07 14:40 | RAD_ITS ---
INDICATION: chest pain EXAMINATION/TECHNIQUE: X-RAY - XR Chest 1 View COMPARISON: Chest radiograph from 07/16/2021. CTA chest from 01/30/2021. FINDINGS/ RAD/Chest 1 View (Portable) IMPRESSION: Support devices: None. There is a small loculated right pleural effusion which appears slightly larger than prior study from 07/16/2021. Associated atelectasis in the right lung base. The left lung is relatively clear. No sizable pneumothorax. Heart size is stable. Bones and soft tissues are unchanged with no new or acute findings. Stable surgical clips and stent in the right upper quadrant. Electronically Signed: Vazquez Chu, at 15:40 EDT ,
[2021-08-07 15:14] LABS: Absolute Lymphocyte Count 1.49 X10^3/uL (0.83-4.51); Absolute Neutrophil Count 3.1 X10^3/uL (2.0-7.7); Basophil# 0.04 X10^3/uL; Basophil% 0.7 % (0-1); Eosinophil# 0.46 X10^3/uL; Hematocrit 32.2 % (37-47); Hemoglobin 10.4 g/dL (12.0-15.0); Lymphocyte # 1.49 X10^3/ul (0.83-4.51); Lymphocyte % 25.9 % (19-41); Mean Corp Hgb Conc 32.3 g/dL (32-36); Mean Corpuscular Hgb 29.7 pg (27.0-32.0); Mean Platelet Vol. 10.1 fl (6.2-12.0); Monocyte# 0.67 X10^3/uL; Monocyte% 11.6 % (0-10); NRBC Flagged by Analyzer 0 % (0-5); Neutrophil # 3.09 X10^3/uL (2.7-7.7); Neutrophil % 53.6 % (47-70); Platelet Count 122 K/mm3 (150-450); RBC Distribution Width CV 14.8 % (11.6-14.6); RBC Distribution Width SD 49.6 fl (35.1-43.9); White Blood Count 5.8 K/mm3 (4.4-11.0)
--- NOTE | 2021-08-07 15:23 | EX.ED.DYSGE1 ---
HPI History of Present Illness Chief Complaint: Chest Pain Informant: patient Narrative Narrative: Patient actually presents with epigastric pain. She has had this for about 2 days. She states she has a history of ulcers and has not been taking her pantoprazole. She took this and Pepto-Bismol yesterday morning and it helped. If she eats or drinks anything she gets nauseated. She describes the symptoms as burning in the epigastrium and it does radiate up toward her chest. She gets sour taste in her mouth. She states she is not at all short of breath. She is not coughing. She is not lightheaded. She has no back pain. She has no leg pain or swelling other than mild discomfort at the hip on the right that she just had repaired. She is taking oxycodone for this but only taking a couple or so a day. She is moving her bowels. She feels that this is her ulcer acting up which she has had before. She has no history of PE or DVT. No family history. She obviously has had recent hip pinning. [facility] Medical History Anxiety and depression Atopic dermatitis Back pain Cirrhosis of liver Closed subcapital fracture of neck of right femur COPD (chronic obstructive pulmonary disease) Cystitis Degenerative arthritis Fall at home H pylori ulcer Hematemesis Heroin addiction Herpes zoster High cholesterol History of alcoholism History of hepatitis C History of illicit drug use Hyperlipidemia Impetigo Injury of head and neck Peptic ulcer disease Pleural effusion on right Restless legs Seasonal allergies Sinusitis, acute Thrombocytopenia Tobacco dependence due to cigarettes Vitamin D deficiency Home Medications albuterol sulfate 2 inh INHALATION Q4H PRN 07/16/21 [History Last Taken 07/15/21] pantoprazole 40 mg PO DAILY 07/16/21 [History Last Taken 1 Week Ago ~07/09/21] aspirin 81 mg PO 0800,1700 07/19/21 [History Last Taken Unknown] oxycodone 5 mg PO Q6H PRN 5 Days #20 tab 07/19/21 [Rx Last Taken Unknown] Allergy/AdvReac Type Severity Reaction Status Date / Time trazodone Allergy Mild leg cramps Verified 08/07/21 14:37 naproxen [From Naprosyn] AdvReac Upset Verified 08/07/21 14:37 Stomach Family History Mother FH: mental illness HLD (hyperlipidemia) Heart disease Thyroid disorder Aunt No problems noted. Grandmother Heart disease Aunt Diabetes HLD (hyperlipidemia) Hypertension Grandfather COPD (chronic obstructive pulmonary disease) Surgical History Cervical vertebral fusion H/O colonoscopy H/O: hysterectomy History of back surgery History of back surgery History of breast biopsy History of D&C History of esophagogastroduodenoscopy (EGD) History of open reduction and internal fixation (ORIF) procedure S/P cholecystectomy S/P shoulder surgery S/P TIPS (transjugular intrahepatic portosystemic shunt) Status post lumbar surgery Social History adopted: No household members: other details: Her granddaughter lives with her (17 years old). She has custody X 11 year housing: apartment number of children: 3 current occupational status: unemployed Smoking Status: Former smoker Tobacco: How many years used: 32 Electronic Cigarette Use: not used how long ago did patient quit smoking: started smoking at age 28 and smoked 1/2- 1.5 PPD....she is still smoking alcohol intake: former details: She has been an alcoholic in the past. quit in 2001 substance use type: does not use ROS ROS ED Constitutional Constitutional ED: Denies chills, fever(s) or subjective Eyes Eyes: Denies change in vision ENT ENT ED: Denies rhinorrhea or sore throat Cardiovascular Cardiovascular: Reports other Details: Burning sensation rating eating up from epigastrium. See history of present illness. ; Denies orthopnea, palpitations, paroxysmal nocturnal dyspnea or racing heartbeat Respiratory/Chest Respiratory/Chest: Denies cough, dyspnea, dyspnea on exertion, orthopnea, paroxysmal nocturnal dyspnea or sputum Gastrointestinal Gastrointestinal: Reports abdominal pain, nausea and other Details: Decreased appetite because eating causes more burning and nausea. She has not actually vomited. No blood in the stool ; Denies constipation, diarrhea, melena or vomiting Genitourinary Genitourinary ED: Denies dysuria Musculoskeletal Musculoskeletal: Denies back pain or myalgias Integumentary Denies rash Neurologic Neurologic: Denies headache(s) or weakness Psychiatric Psychiatric: Reports anxiety Endocrine Endocrinology: Denies polydipsia or polyuria Allergic/Immunologic Allergic/Immunologic ED: Denies urticaria EXAM Physical Exam Const Vital Signs: 08/07/21 14:35 08/07/21 15:06 08/07/21 15:07 Temperature 98.1 F Temperature Source Temporal Pulse Rate 94 Respiratory Rate 16 Respiratory Effort Normal Blood Pressure 102/63 Blood Pressure Mean 76 Pulse Ox 99 Oxygen Delivery Method Room Air Room Air 08/07/21 17:04 Temperature Temperature Source Pulse Rate 85 Respiratory Rate 18 Respiratory Effort Blood Pressure Blood Pressure Mean Pulse Ox 99 Oxygen Delivery Method Room Air Positive well nourished and well developed General Appearance ED: well developed and NAD; Negative for cyanotic or diaphoretic HEENT Reports dry mucous membranes Negative for trauma Mouth ED: Yes dry mucous membranes Mouth: dry mucous membranes Eyes General Eye ED: Negative for pale conjunctiva or scleral icterus Neck no JVD Chest Wall inspection of chest normal and palpation of chest normal Resp normal respiratory effort and clear to auscultation bilaterally Resp Narrative: Breathing is easy and unlabored. She is 100% on room air showing no hypoxia. She can take good deep breaths with no discomfort. Effort and Inspection: Negative for pain with movement Auscultation: Negative for rales, rhonchi or wheezes Cardio regular rate, regular rhythm and no murmurs GI normal to inspection, nondistended, normoactive bowel sounds and non-distended GI Narrative: Abdomen is soft and nondistended. She does have some mild epigastric tenderness. Of note she has had prior cholecystectomy. Back/Spine no CVA tenderness Extremity Extremity Narrative: Mild contusion near the right hip from surgery. Rony out. No sign of infection. There is no peripheral edema cords or tenderness along the deep venous system or distended veins. No clinical indication of DVT. Neuro Sensorium / Orientation: alert Psych mental status grossly normal Skin Skin Narrative: Mild contusion near surgical site on the right hip. MDM MDM MDM Narrative Medical decision making narrative: Patient's CBC shows mildly low hemoglobin but she did just have surgery and is not a big change from her baseline. Electrolytes show no marked abnormalities. Troponin is negative despite days of symptoms. LFTs show just minimal elevations but they have been elevated in the past. Patient did feel much better with her meds. The GI cocktail helped a lot. She states she is pretty sure this is her peptic ulcer disease. But she is able to drink and eat. She had crackers and liquids here. The nausea is now totally gone. I do not think this patient needs CTA. I think this is likely GI in origin. Patient is going to start back on her pantoprazole that she was not taking. She already has follow-up with her GI doctor very soon. We did discuss reasons to return. Lab Data Attestation: I reviewed the patient's lab results. Labs: Laboratory Results - last 24 hr 08/07/21 08/07/21 08/07/21 15:08 15:08 15:08 WBC 5.8 RBC 3.50 L Hgb 10.4 L Hct 32.2 L MCV 92.0 MCH 29.7 MCHC 32.3 RDW Std Deviation 49.6 H RDW Coeff of Heath 14.8 H Plt Count 122 L MPV 10.1 Immature Gran % (Auto) 0.200 Neut % (Auto) 53.6 Lymph % (Auto) 25.9 Sutton % (Auto) 11.6 H Eos % (Auto) 8.0 H Baso % (Auto) 0.7 Absolute Neuts (auto) 3.1 Absolute Lymphs (auto) 1.49 Nucleated RBC % 0 Sodium 140 Potassium 3.8 Chloride 114 H Carbon Dioxide 23.0 Anion Gap 3 L BUN 14 Creatinine 0.53 L Estim Creat Clear Calc 99.42 Est GFR (MDRD) Af Amer 151 Est GFR (MDRD) Non-Af 125 BUN/Creatinine Ratio 26.3 H Glucose 100 Calcium 8.4 L Total Bilirubin 0.80 Direct Bilirubin 0.34 H AST 19 ALT 14 Alkaline Phosphatase 235 H Troponin I High Sens 6 Total Protein 5.3 L Albumin 2.6 L Globulin 2.7 Lipase 153 Radiography Diagnostic Testing: Clinical Impression(s) from Imaging Studies Chest X-Ray 08/07/21 14:40 IMPRESSION: Support devices: None. There is a small loculated right pleural effusion which appears slightly larger than prior study from 07/16/2021. Associated atelectasis in the right lung base. The left lung is relatively clear. No sizable pneumothorax. Heart size is stable. Bones and soft tissues are unchanged with no new or acute findings. Stable surgical clips and stent in the right upper quadrant. Electronically Signed: Vazquez Chu, at 15:40 EDT , EKG Initial EKG: Comments: EKG done for epigastric pain read by me shows a normal sinus rhythm with a rate of 94. No ventricular ectopy. No acute ST elevation or depression. FL interval, QRS duration and QTc normal. Patient is having the symptoms during the EKG. Discharge Plan Triage Chief Complaint: Chest Pain ED Provider: Deric Au Dx/Rx/DC Orders Clinical Impression: Peptic ulcer disease, Acute epigastric pain Instructions: ED PUD Prescriptions: No Action pantoprazole 40 mg tablet,delayed release (DR/EC) 40 mg PO DAILY RF: 0 albuterol sulfate 90 mcg/actuation HFA aerosol inhaler 2 inh INHALATION Q4H PRN (Reason: SOB) RF: 0 oxycodone 5 mg tablet 5 mg PO Q6H PRN (Reason: pain) 5 Days Qty: 20 RF: 0 aspirin 81 mg tablet,delayed release (DR/EC) 81 mg PO 0800,1700 RF: 0 Primary Care Provider: Aye Clark NP Referrals: Aye Clark NP, [facility] [Primary Care Provider] - 3-5 Days if not improving Disposition Disposition: Home, Self Care
[2021-08-07] MEDS: 0.9% Normal Saline 1,000 ML 1000 ML IV (15:33)
[2021-08-07] MEDS: Ondansetron 4 MG/2 ML Vial IV (15:33)
[2021-08-07] MEDS: Mag Hydrox/Al Hydrox/Simeth 30 ML UDC PO (15:33)
[2021-08-07 15:51] LABS: Anion Gap 3 (5-15); BUN 14 mg/dL (7-18); BUN/Creat Ratio 26.3 RATIO (10-20); Calcium,Total 8.4 mg/dL (8.5-10.1); Chloride 114 mmol/L (98-107); Creatinine, Serum 0.53 mg/dL (0.55-1.02); EST Glomerular Filtration Rate 125 mL/min (>60); Est Glom Filt Rate - Afr Amer 151 mL/min (>60); Estimated Creatinine Clearance 99.42 ml/min; Glucose 100 mg/dL (74-106); Potassium 3.8 mmol/L (3.5-5.1); Sodium Level 140 mmol/L (136-145); Troponin-I HS 6 pg/mL (3.0-54.0)
[2021-08-07 16:16] LABS: AST(SGOT) 19 U/L (15-37); Alanine Aminotransfer ALT/SGPT 14 U/L (13-56); Albumin, Serum 2.6 g/dL (3.2-5.0); Alkaline Phosphatase 235 U/L (45-117); Bilirubin, Direct 0.34 mg/dL (0.00-0.30); Globulin 2.7 g/dL (2.2-4.2); Lipase 153 U/L (73-393); Protein, Total 5.3 g/dL (6.4-8.2)
[2021-08-07 17:04] VITALS: PULSE 85; RESP 18; O2SAT 99
== END 2021-08-07 18:20 | disposition home or self-care (01) ==
PROVIDERS: Emergency Provider Emergency Medicine; PCP Nurse Practitioner Primary Care; Visit Provider Emergency Medicine
DX: K27.9 Peptic ulcer, site unspecified, unspecified as acute or chronic, without hemorrhage or perforation (principal); J44.9 Chronic obstructive pulmonary disease, unspecified; E78.00 Pure hypercholesterolemia, unspecified; F17.210 Nicotine dependence, cigarettes, uncomplicated; Z79.82 Long term (current) use of aspirin
CPT/HCPCS: 71045; 80048; 80076; 83690; 84484; 85025; 93005; 96361; 96365; 96375; 99284; J7030; A4216; J2405; J3490

== ENCOUNTER 2021-11-10 17:08 | Emergency (ER) | payer MEDICAID, SELFPAY ==
[2021-11-10 17:09] VITALS: BP 123/60; PULSE 102; RESP 16; TEMP 36.8; O2SAT 99; BMI 20.3
--- NOTE | 2021-11-10 17:16 | EKG12_ITS ---
Test Reason : Blood Pressure : / mmHG Vent. Rate : 096 BPM Atrial Rate : 096 BPM P-R Int : 116 ms QRS Dur : 078 ms QT Int : 334 ms P-R-T Axes : 037 075 067 degrees QTc Int : 421 ms Normal sinus rhythm Normal ECG Confirmed by MARIANA RAZO, DAMIAN ([id number]), non linear editor SANDY MIX ([id number]) on 11/11/2021 9:04:39 AM Referred By: PAULETTE Confirmed By:DAMIAN PEÑA MD
--- NOTE | 2021-11-10 17:29 | RAD_ITS ---
STUDY: X-RAY CHEST REASON FOR EXAM: Female, 61 years old. chest pain TECHNIQUE: 1 view COMPARISON: 08/07/2021 FINDINGS: Unremarkable cardiac silhouette. Unchanged right-sided pleural effusion and right lower lung airspace opacities. Lungs are emphysematous. No pneumothorax. Status post median sternotomy. Multilevel thoracic spondylosis. RAD/Chest 1 View (Portable) IMPRESSION: No significant interval change. Electronically Signed: Juan Dimas MD at 17:54 EDT ,
[2021-11-10 17:42] LABS: Absolute Lymphocyte Count 1.43 X10^3/uL (0.83-4.51); Basophil# 0.05 X10^3/uL; Basophil% 0.9 % (0-1); Eosinophil# 0.24 X10^3/uL; Eosinophils% 4.5 % (0-5); Hematocrit 40.1 % (37-47); Hemoglobin 13.4 g/dL (12.0-15.0); Lymphocyte # 1.43 X10^3/ul (0.83-4.51); Lymphocyte % 26.7 % (19-41); Mean Corp Hgb Conc 33.4 g/dL (32-36); Mean Corpuscular Volume 89.9 fL (81-99); Mean Platelet Vol. 10.1 fl (6.2-12.0); Monocyte# 0.63 X10^3/uL; Monocyte% 11.8 % (0-10); NRBC Flagged by Analyzer 0 % (0-5); Neutrophil % 55.9 % (47-70); Platelet Count 136 K/mm3 (150-450); RBC Distribution Width CV 14.7 % (11.6-14.6); RBC Distribution Width SD 48.5 fl (35.1-43.9); Red Blood Count 4.46 M/mm3 (4.2-5.4); White Blood Count 5.4 K/mm3 (4.4-11.0)
[2021-11-10 17:52] LABS: Anion Gap 4 (5-15); BUN 12 mg/dL (7-18); Chloride 115 mmol/L (98-107); EST Glomerular Filtration Rate 108 mL/min (>60); Est Glom Filt Rate - Afr Amer 131 mL/min (>60); Estimated Creatinine Clearance 95.67 ml/min; Glucose 104 mg/dL (74-106); Potassium 4.2 mmol/L (3.5-5.1); Sodium Level 141 mmol/L (136-145); Troponin-I HS (w/2H Reflex) 4 pg/mL (3.0-54.0)
--- NOTE | 2021-11-10 18:15 | EDS_ITS ---
HPI History of Present Illness Chief Complaint: Chest Pain Narrative Narrative: This is a 61-year-old female with a past medical history of cirrhosis, COPD, right pleural effusion, hyperlipidemia presenting with chest pain which has had for 5 weeks. She describes it as sharp and retrosternal. She describes dyspnea with exertion. She states the pain does not necessarily radiate. She states stable to go about 10 to 20 feet for she gets short of breath. She denies any lower extremity edema. She states she has not seen her primary care physician in some time and call today stating she had chest pain and she was sent to the emergency room. Patient has fever, chills, cough. She denies history of DVT/PE, recent immobilization, exogenous hormones, recent travel. She did have a right hip replacement in June 2021 which is about 4 months ago. Patient denies any leg swelling or history of DVT. She is not anticoagulated. [facility] Medical History Anxiety and depression Atopic dermatitis Back pain Cirrhosis of liver Closed subcapital fracture of neck of right femur COPD (chronic obstructive pulmonary disease) Cystitis Degenerative arthritis Fall at home H pylori ulcer Hematemesis Heroin addiction Herpes zoster High cholesterol History of alcoholism History of hepatitis C History of illicit drug use Hyperlipidemia Impetigo Injury of head and neck Peptic ulcer disease Pleural effusion on right Restless legs Seasonal allergies Sinusitis, acute Thrombocytopenia Tobacco dependence due to cigarettes Vitamin D deficiency Home Medications lactulose 10 gram/15 mL oral solution (Constulose) 15 ml PO TID 11/10/21 [History Last Taken Unknown] zinc sulfate 50 mg zinc (220 mg) capsule 1 cap PO DAILY 11/10/21 [History Last Taken Unknown] Allergy/AdvReac Type Severity Reaction Status Date / Time trazodone Allergy Mild leg cramps Verified 08/07/21 14:37 naproxen [From Naprosyn] AdvReac Upset Verified 08/07/21 14:37 Stomach tramadol AdvReac Itching Verified 11/10/21 17:19 Family History Mother FH: mental illness HLD (hyperlipidemia) Heart disease Thyroid disorder Aunt No problems noted. Grandmother Heart disease Aunt Diabetes HLD (hyperlipidemia) Hypertension Grandfather COPD (chronic obstructive pulmonary disease) Surgical History Cervical vertebral fusion H/O colonoscopy H/O: hysterectomy History of back surgery History of back surgery History of breast biopsy History of D&C History of esophagogastroduodenoscopy (EGD) History of open reduction and internal fixation (ORIF) procedure S/P cholecystectomy S/P shoulder surgery S/P TIPS (transjugular intrahepatic portosystemic shunt) Status post lumbar surgery Social History adopted: No household members: other details: Her granddaughter lives with her (17 years old). She has custody X 11 year housing: apartment number of children: 3 current occupational status: unemployed Smoking Status: Former smoker Tobacco: How many years used: 32 Electronic Cigarette Use: not used how long ago did patient quit smoking: started smoking at age 28 and smoked 1/2- 1.5 PPD....she is still smoking alcohol intake: former details: She has been an alcoholic in the past. quit in 2001 substance use type: does not use ROS ROS ED Constitutional Constitutional ED: Denies chills or fever(s) Eyes Eyes: Denies blurry vision or change in vision ENT ENT ED: Denies rhinorrhea or sore throat Cardiovascular Cardiovascular: Reports as per HPI Respiratory/Chest Respiratory/Chest: Reports dyspnea and dyspnea on exertion; Denies cough Gastrointestinal Gastrointestinal: Denies abdominal pain, constipation, diarrhea or melena Genitourinary Genitourinary ED: Denies dysuria or hematuria Musculoskeletal Musculoskeletal: Denies arthralgias Integumentary Denies abscess Neurologic Neurologic: Denies headache(s) or paresthesias Psychiatric Psychiatric: Denies anxiety or depression EXAM Physical Exam Const Vital Signs: 11/10/21 17:09 11/10/21 17:23 Temperature 98.3 F Temperature Source Temporal Pulse Rate 102 H Respiratory Rate 16 Blood Pressure 123/60 H Blood Pressure Mean 81 Pulse Ox 99 Oxygen Delivery Method Room Air Room Air Positive well nourished General Appearance ED: NAD; Negative for pallor HEENT Reports moist mucous membranes normocephalic and atraumatic Eyes PERRL and EOMs intact bilaterally Chest Wall inspection of chest normal and palpation of chest normal Resp normal respiratory effort and clear to auscultation bilaterally Auscultation: Negative for rales, rhonchi or wheezes Cardio regular rhythm Rate: tachycardic GI normal to inspection, nondistended, normoactive bowel sounds Extremity normal to inspection General Extremety ED: Yes pulses abnormal; Negative for edema or tenderness General Extremity: pulses abnormal; Negative for edema Neuro oriented x3, CN's II-XII intact bilaterally and no sensory deficits noted Motor Exam: strength 5/5 throughout Psych mental status grossly normal Skin General Skin Exam: Negative for jaundice or pallor Heart Score History: Slightly/Non-Suspicious ECG: Normal Age: >45 - <65 years Risk Factors: 1 or 2 Risk Factors Troponin: </= Normal Limit Score: 2 MDM MDM MDM Narrative Medical decision making narrative: Patient presenting with retrosternal chest pain. She does describe it as sharp. Is worse with inspiration. She also describes shortness of breath with exertion. She does have a history of smoking and she states that she does not walk and often she might be debilitated from this. She is not wheezing on examination. Her EKG on my interpretation shows a normal sinus rhythm with a ventricular 96 bpm without sign of ischemic change or dysrhythmia. Chest x-ray on my interpretation shows a right pleural effusion that does not significantly look different than her previous chest x-ray. CBC and BMP unremarkable. High- sensitivity troponin is 4 and repeat high-sensitivity troponin at 2 hours is 3. D-dimer was elevated at 1.95. Chest x-ray negative for acute process on my interpretation. Since the D-dimer is elevated I will obtain a CTA. CTA of the chest is negative for PE or dissection. There is a right pleural effusion. Radiologist read just as bilateral pneumonia however the patient has no cough, fever, chills. She does relate shortness of breath which is fairly chronic. Chest pain and shortness of breath been going on for weeks. She has a leukocytosis or left shift. I feel she does not need to be treated for pneumoni a at this time. Impression: 1. Chest pain 2. Dyspnea 3. Right pleural effusion Lab Data Attestation: I reviewed the patient's lab results. Labs: Laboratory Results - last 24 hr 11/10/21 11/10/21 11/10/21 17:30 17:30 17:30 WBC 5.4 RBC 4.46 Hgb 13.4 Hct 40.1 MCV 89.9 MCH 30.0 MCHC 33.4 RDW Std Deviation 48.5 H RDW Coeff of Heath 14.7 H Plt Count 136 L MPV 10.1 Immature Gran % (Auto) 0.200 Neut % (Auto) 55.9 Lymph % (Auto) 26.7 Rhea % (Auto) 11.8 H Eos % (Auto) 4.5 Baso % (Auto) 0.9 Absolute Neuts (auto) 3.0 Absolute Lymphs (auto) 1.43 Nucleated RBC % 0 D-Dimer Quant (PE/DVT) 1.95 H* Sodium 141 Potassium 4.2 Chloride 115 H Carbon Dioxide 22.0 Anion Gap 4 L BUN 12 Creatinine 0.60 Estim Creat Clear Calc 95.67 Est GFR (MDRD) Af Amer 131 Est GFR (MDRD) Non-Af 108 BUN/Creatinine Ratio 20.0 Glucose 104 Calcium 9.0 Troponin I High Sens 4 11/10/21 19:42 WBC RBC Hgb Hct MCV MCH MCHC RDW Std Deviation RDW Coeff of Heath Plt Count MPV Immature Gran % (Auto) Neut % (Auto) Lymph % (Auto) Rhea % (Auto) Eos % (Auto) Baso % (Auto) Absolute Neuts (auto) Absolute Lymphs (auto) Nucleated RBC % D-Dimer Quant (PE/DVT) Sodium Potassium Chloride Carbon Dioxide Anion Gap BUN Creatinine Estim Creat Clear Calc Est GFR (MDRD) Af Amer Est GFR (MDRD) Non-Af BUN/Creatinine Ratio Glucose Calcium Troponin I High Sens 3 Radiography Diagnostic Testing: Clinical Impression(s) from Imaging Studies Chest X-Ray 11/10/21 17:29 IMPRESSION: No significant interval change. Electronically Signed: Juan Dimas MD at 17:54 EDT , Chest CTA 11/10/21 19:18 IMPRESSION: 1. No demonstrated pulmonary embolism or arterial dissection. 2. There is bilateral pneumonia. Right pleural effusion. Electronically Signed: Mariusz Keene MD at 20:24 EDT , Discharge Plan Triage Chief Complaint: Chest Pain ED Provider: Anjum Baldwin Dx/Rx/DC Orders Instructions: ED Chest Pain, Noncardiac Prescriptions: No Action lactulose [Constulose] 10 gram/15 mL solution 15 ml PO TID zinc sulfate 50 mg zinc (220 mg) capsule 1 cap PO DAILY Primary Care Provider: Cem Carson Referrals: Cem Carson MD [Primary Care Provider] - Disposition Disposition: Home, Self Care
[2021-11-10 18:29] LABS: D-Dimer Quantitative (DVT/PE) 1.95 FEU/ug/m (0.27-0.49)
--- NOTE | 2021-11-10 19:18 | CT_ITS ---
EXAM: CT ANGIOGRAPHY CHEST WITHOUT AND WITH INTRAVENOUS CONTRAST CLINICAL INDICATION: chest pain TECHNIQUE: Helically acquired angiography images were obtained of the chest without and with intravenous contrast. This CT exam was performed using one or more of the following dose reduction techniques: automated exposure control, adjustment of the mA and/or kV according to patient size, and/or use of iterative reconstruction technique. This report was created using [employer] report generation technology. MIP reconstructed images were created and reviewed. CONTRAST: IV 100mL [id number]-370 RADIATION DOSE: CTDIvol = 4.37 mGy, DLP = 202.41 mGy-cm COMPARISON: 01/30/2021. FINDINGS: PULMONARY ARTERIES: No demonstrated pulmonary embolism or arterial dissection. AORTA: There is atherosclerotic calcification of the aortic arch with tortuosity and elongation of the aortic arch and descending thoracic aorta. Normal in caliber. No evidence of dissection. GREAT VESSELS OF AORTIC ARCH: Unremarkable. Normal in caliber. No evidence of dissection. LUNGS AND PLEURAL SPACES: There is bilateral pneumonia. Right pleural effusion. There are scattered blebs and bullae. This can be seen in pulmonary emphysema. No mass. HEART: There are calcifications of the coronary arteries. No pericardial effusion. No signs of right heart strain, ratio of right ventricle to left ventricle measures less than 1. MEDIASTINUM: Unremarkable. No mediastinal or hilar adenopathy. Esophagus is unremarkable. No hiatal hernia. THYROID: Unremarkable. No thyroid lesions. BONES/JOINTS: There are degenerative changes of the shoulders. There are multi-level degenerative changes of the thoracic spine. No suspicious lytic or blastic abnormality. LIVER: The liver is nodular in appearance. A focal mass is not identified. The finding is consistent for hepatic cirrhosis. Stent in liver. CT/CTA Chest W/WO Contrast IMPRESSION: 1. No demonstrated pulmonary embolism or arterial dissection. 2. There is bilateral pneumonia. Right pleural effusion. Electronically Signed: Mariusz Keene MD at 20:24 EDT ,
[2021-11-10 19:30] LABS: Reflex Troponin-HS? (from REC) Y
[2021-11-10] MEDS: Morphine 4 MG/ML Syringe IV (19:38)
[2021-11-10] MEDS: Ondansetron 4 MG/2 ML Vial IV (19:38)
[2021-11-10 20:12] LABS: Troponin-I HS 3 pg/mL (3.0-54.0)
[2021-11-10 20:39] VITALS: BP 131/72
== END 2021-11-10 20:40 | disposition home or self-care (01) ==
PROVIDERS: Emergency Provider Student in an Organized Health Care Education/Training Program; PCP Family Medicine; Visit Provider Student in an Organized Health Care Education/Training Program
DX: R06.00 Dyspnea, unspecified (principal); J44.9 Chronic obstructive pulmonary disease, unspecified; J90 Pleural effusion, not elsewhere classified; F17.200 Nicotine dependence, unspecified, uncomplicated; E78.5 Hyperlipidemia, unspecified; E78.00 Pure hypercholesterolemia, unspecified; R07.9 Chest pain, unspecified
CPT/HCPCS: 71045; 71275; 80048; 84484; 85025; 85379; 93005; 96374; 96375; 99284; Q9967; A4216; J2405

== ENCOUNTER 2022-01-20 15:16 | Emergency (ER) | payer MEDICAID, SELFPAY ==
[2022-01-20 15:17] VITALS: BP 120/67; PULSE 84; RESP 18; TEMP 36.6; O2SAT 96; BMI 22.0
--- NOTE | 2022-01-20 15:56 | EDS_ITS ---
HPI History of Present Illness Chief Complaint: Shortness of Breath Narrative Narrative: 61-year-old female here with a chief complaint of shortness of breath. History significant for COPD, cirrhosis status post TIPS, hepatitis C, IV drug use, tobacco use. States she has been experiencing 2 days of shortness of breath worse with exertion. Denies any lower extremity edema, orthopnea proximal nocturnal dyspnea. Does note some mild intermittent chest discomfort. Denies any chest pain now. Denies any bleeding diathesis. The patient denies recent surgery in the last 4 weeks or immobilization in the last 3 days, denies previous diagnosis of DVT or PE, hemoptysis, unilateral leg swelling or malignancy with treatment the last 6 months. No estrogen use noted. Denies any recent sick contacts. She is not vaccinated against COVID-19. Old chart reviewed: Last ED visit for shortness of breath March 2020. Discharged with doxycycline [facility] Medical History Anxiety and depression Atopic dermatitis Back pain Cirrhosis of liver Closed subcapital fracture of neck of right femur COPD (chronic obstructive pulmonary disease) Cystitis Degenerative arthritis Fall at home H pylori ulcer Hematemesis Heroin addiction Herpes zoster High cholesterol History of alcoholism History of hepatitis C History of illicit drug use Hyperlipidemia Impetigo Injury of head and neck Peptic ulcer disease Pleural effusion on right Restless legs Seasonal allergies Sinusitis, acute Thrombocytopenia Tobacco dependence due to cigarettes Vitamin D deficiency Home Medications lactulose 10 gram/15 mL oral solution (Constulose) 15 ml PO TID 11/10/21 [History Last Taken Unknown] zinc sulfate 50 mg zinc (220 mg) capsule 1 cap PO DAILY 11/10/21 [History Last Taken Unknown] prednisone 50 mg tablet 50 mg PO DAILY 5 days #5 tabs 01/20/22 [Rx Last Taken Unknown] Allergy/AdvReac Type Severity Reaction Status Date / Time trazodone Allergy Mild leg cramps Verified 01/20/22 15:19 naproxen [From Naprosyn] AdvReac Upset Verified 01/20/22 15:19 Stomach tramadol AdvReac Itching Verified 01/20/22 15:19 Family History Mother FH: mental illness HLD (hyperlipidemia) Heart disease Thyroid disorder Aunt No problems noted. Grandmother Heart disease Aunt Diabetes HLD (hyperlipidemia) Hypertension Grandfather COPD (chronic obstructive pulmonary disease) Surgical History Cervical vertebral fusion H/O colonoscopy H/O: hysterectomy History of back surgery History of back surgery History of breast biopsy History of D&C History of esophagogastroduodenoscopy (EGD) History of open reduction and internal fixation (ORIF) procedure S/P cholecystectomy S/P shoulder surgery S/P TIPS (transjugular intrahepatic portosystemic shunt) Status post lumbar surgery Social History adopted: No household members: other details: Her granddaughter lives with her (17 years old). She has custody X 11 year housing: apartment number of children: 3 current occupational status: unemployed Smoking Status: Former smoker Tobacco: How many years used: 32 Electronic Cigarette Use: not used how long ago did patient quit smoking: started smoking at age 28 and smoked 1/ 2- 1.5 PPD....she is still smoking alcohol intake: former details: She has been an alcoholic in the past. quit in 2001 substance use type: does not use ROS ROS ED Eyes Eyes: Denies other visual disturbances ENT ENT ED: Denies ear pain Cardiovascular Cardiovascular: Denies chest pain, orthopnea or paroxysmal nocturnal dyspnea Respiratory/Chest Respiratory/Chest: Reports dyspnea, dyspnea on exertion, sputum and other Details: Notes increased volume of white sputum ; Denies cough, orthopnea or paroxysmal nocturnal dyspnea Gastrointestinal Gastrointestinal: Denies abdominal pain Genitourinary Genitourinary ED: Denies dysuria Musculoskeletal Musculoskeletal: Denies joint pain Integumentary Denies rash Neurologic Neurologic: Denies dizziness, focal weakness, numbness, syncope or weakness Psychiatric Psychiatric: Denies homicidal ideation or suicidal ideation EXAM Physical Exam Const Vital Signs: 01/20/22 15:17 01/20/22 16:30 01/20/22 16:45 Temperature 98 F Temperature Source Temporal Pulse Rate 84 75 Respiratory Rate 18 18 Respiratory Effort Normal Non-Labored Respiratory Depth Normal Respiratory Pattern Normal Blood Pressure 120/67 Blood Pressure Mean 84 Pulse Ox 96 Oxygen Delivery Method Room Air Room Air 01/20/22 17:29 Temperature Temperature Source Pulse Rate 82 Respiratory Rate 16 Respiratory Effort Respiratory Depth Respiratory Pattern Blood Pressure 135/77 H Blood Pressure Mean 96 Pulse Ox 95 Oxygen Delivery Method Room Air Negative for alert or oriented x3 General Appearance ED: Negative for comfortable Orientation / Consciousness: Negative for awake HEENT Denies normocephalic Face and Sinus: Negative for face symmetric External Ear: Negative for external ears normal Mouth ED: No moist mucous membranes normal Throat: Negative for posterior oropharynx normal Eyes Negative for PERRL or EOMs intact bilaterally Neck No full ROM and No no JVD Carotids: other Other Details: no carotid bruits Chest Wall Negative for inspection of chest normal Resp normal respiratory effort Resp Narrative: Bilateral expiratory wheezing noted. No obvious focal consolidations, no conversational dyspnea Effort and Inspection: Negative for retractions or pain with movement Auscultation: wheezes Cardio Negative for no murmurs or peripheral pulses 2+ throughout GI Negative for no bruits GI Narrative: no pulsatile abdominal masses Negative for no CVA tenderness Back/Spine Cervical Spine: Negative for cervical ROM normal Extremity Negative for normal to inspection or full ROM MDM MDM MDM Narrative Medical decision making narrative: 61-year-old female here with shortness of breath in the setting of prior tobacco use. Concern for ACS, arrhythmia, anemia, pneumonia, physical exam most consistent with COPD exacerbation given expiratory wheezing. Low suspicion for pulmonary embolism as the patient had a low risk Wells score. EKG showed no evidence of arrhythmia or myocardial ischemia. Labs and images were remarkable for no evidence of leukocytosis or anemia on the patient CBC. No evidence of significant electrolyte abnormality on BMP. The patient's troponin I was negative further making ACS less likely. Chest x-ray showed no evidence of pneumonia but showed a right pleural effusion. The patient is likely suffering from a COPD exacerbation. She remained hemodynamically stable. Not require hospitalization at this time. Will give short course of prednisone, encouraged her to continue to take inhaled albuterol and ipratropium. Encouraged her to follow with her primary care physician. Lab Data Attestation: I reviewed the patient's lab results. Lab results narrative: CBC without leukocytosis, severe anemia, no thrombocytopenia. BMP without evidence of significant electrolyte abnormalities, no anion gap, no acute kidney injury. Troponin negative, no evidence of myocardial ischemia Chest x-ray showed no evidence of pneumonia noted pleural effusion that is consistent with prior study Labs: Laboratory Results - last 24 hr 01/20/22 01/20/22 16:39 16:39 WBC 4.9 RBC 4.65 Hgb 14.0 Hct 42.4 MCV 91.2 MCH 30.1 MCHC 33.0 RDW Std Deviation 51.2 H RDW Coeff of Heath 15.2 H Plt Count 112 L MPV 10.3 Immature Gran % (Auto) 0.200 Neut % (Auto) 56.4 Lymph % (Auto) 23.5 Dixie % (Auto) 15.0 H Eos % (Auto) 3.9 Baso % (Auto) 1.0 Absolute Neuts (auto) 2.7 Absolute Lymphs (auto) 1.14 Nucleated RBC % 0 Sodium 143 Potassium 4.2 Chloride 113 H Carbon Dioxide 25.0 Anion Gap 5 BUN 13 Creatinine 0.60 Estim Creat Clear Calc 100.58 Est GFR (MDRD) Af Amer 130 Est GFR (MDRD) Non-Af 107 BUN/Creatinine Ratio 21.5 H Glucose 85 Calcium 8.4 L Troponin I High Sens 6 Radiography Diagnostic Testing: Clinical Impression(s) from Imaging Studies Chest X-Ray 01/20/22 16:45 IMPRESSION: There is a right pleural effusion. This is unchanged Electronically Signed: Mariusz Keene MD at 16:59 EDT Reading Location ID and State: [facility] / [place] , Service support , EKG Initial EKG: Comments: EKG shows normal sinus rhythm, normal axis, normal intervals, no obvious ST or T wave changes to suggest myocardial ischemia, no evidence of right heart strain. Discharge Plan Triage Chief Complaint: Shortness of Breath ED Provider: Byron Krause Dx/Rx/DC Orders Clinical Impression: Acute exacerbation of chronic obstructive pulmonary disease Instructions: COPD: Wheezing and Chest Tightness Prescriptions: New prednisone 50 mg tablet 50 mg PO DAILY 5 Days Qty: 5 0RF No Action lactulose [Constulose] 10 gram/15 mL solution 15 ml PO TID zinc sulfate 50 mg zinc (220 mg) capsule 1 cap PO DAILY Primary Care Provider: Care Physician,No Primary Referrals: NOT,DEFINED [Non-Staff] - Activity Restrictions/Additional Instructions: Please return if you develop worsening shortness of breath, chest pain or for symptoms change or worsen anyway. Please follow-up with your primary care physician in the next 24 hours or at the next available appointment. Disposition Disposition: Home, Self Care
--- NOTE | 2022-01-20 16:11 | EKG12_ITS ---
Test Reason : sob Blood Pressure : / mmHG Vent. Rate : 070 BPM Atrial Rate : 070 BPM P-R Int : 128 ms QRS Dur : 074 ms QT Int : 378 ms P-R-T Axes : 064 069 068 degrees QTc Int : 408 ms Normal sinus rhythm Normal ECG Confirmed by MARIANA RAZO, DAMIAN ([id number]), photographic editor SANDY MIX ([id number]) on 01/22/2022 8:07:48 AM Referred By: Jimi Confirmed By:DAMIAN PEÑA MD
[2022-01-20] MEDS: Ipratropium/Albuterol Sulfate 3 ML AMPUL.NEB INHALATION (16:29)
[2022-01-20 16:30] VITALS: PULSE 75; RESP 18
[2022-01-20 16:45] VITALS: O2SAT 95
--- NOTE | 2022-01-20 16:45 | RAD_ITS ---
STUDY: X-RAY CHEST REASON FOR EXAM: Female, 61 years old. CHEST PAIN SOB TECHNIQUE: XR Chest 2 Views COMPARISON: 3 FINDINGS: There is a right pleural effusion. Cervical spine fusion hardware noted. Normal size heart. Normal mediastinum and jose. Normal visualized pulmonary arteries. There is atherosclerotic calcification of the aortic arch with tortuosity. There are diffuse degenerative changes of the visualized thoracic spine. There is degenerative osteoarthritis of the bilateral shoulders. There is no demonstrated abnormality of the visualized soft tissue structures of the upper abdomen. RAD/Chest PA and Lateral IMPRESSION: There is a right pleural effusion. This is unchanged Electronically Signed: Mariusz Keene MD at 16:59 EDT ,
[2022-01-20] MEDS: Lidocaine 5% Patch 1 PATCH TOPICAL (16:57)
[2022-01-20] MEDS: predniSONE 20 MG Tablet 40 MG PO (16:57)
[2022-01-20 17:00] LABS: Absolute Lymphocyte Count 1.14 X10^3/uL (0.83-4.51); Absolute Neutrophil Count 2.7 X10^3/uL (2.0-7.7); Basophil# 0.05 X10^3/uL; Eosinophil# 0.19 X10^3/uL; Eosinophils% 3.9 % (0-5); Hematocrit 42.4 % (37-47); Lymphocyte # 1.14 X10^3/ul (0.83-4.51); Lymphocyte % 23.5 % (19-41); Mean Corpuscular Hgb 30.1 pg (27.0-32.0); Mean Corpuscular Volume 91.2 fL (81-99); Mean Platelet Vol. 10.3 fl (6.2-12.0); Monocyte# 0.73 X10^3/uL; NRBC Flagged by Analyzer 0 % (0-5); Neutrophil # 2.74 X10^3/uL (2.7-7.7); Neutrophil % 56.4 % (47-70); Platelet Count 112 K/mm3 (150-450); RBC Distribution Width CV 15.2 % (11.6-14.6); RBC Distribution Width SD 51.2 fl (35.1-43.9); Red Blood Count 4.65 M/mm3 (4.2-5.4); White Blood Count 4.9 K/mm3 (4.4-11.0)
[2022-01-20 17:19] LABS: Anion Gap 5 (5-15); BUN 13 mg/dL (7-18); BUN/Creat Ratio 21.5 RATIO (10-20); Calcium,Total 8.4 mg/dL (8.5-10.1); Chloride 113 mmol/L (98-107); EST Glomerular Filtration Rate 107 mL/min (>60); Est Glom Filt Rate - Afr Amer 130 mL/min (>60); Estimated Creatinine Clearance 100.58 ml/min; Glucose 85 mg/dL (74-106); Potassium 4.2 mmol/L (3.5-5.1); Sodium Level 143 mmol/L (136-145); Troponin-I HS 6 pg/mL (3.0-54.0)
[2022-01-20 17:29] VITALS: BP 135/77; PULSE 82; RESP 16; O2SAT 95
[2022-01-20 19:20] VITALS: RESP 16
== END 2022-01-20 19:30 | disposition home or self-care (01) ==
PROVIDERS: Emergency Provider Emergency Medicine; Visit Provider Emergency Medicine
DX: J44.1 Chronic obstructive pulmonary disease with (acute) exacerbation (principal); Z87.891 Personal history of nicotine dependence; Z28.310 Unvaccinated for COVID-19; E78.5 Hyperlipidemia, unspecified; E78.00 Pure hypercholesterolemia, unspecified; J98.4 Other disorders of lung
CPT/HCPCS: 71046; 80048; 84484; 85025; 87811; 93005; 94640; 99283

== ENCOUNTER 2022-02-09 16:19 | Emergency (ER) | payer MEDICAID, SELFPAY ==
[2022-02-09 16:20] VITALS: BP 140/60; PULSE 91; RESP 16; TEMP 37.2; O2SAT 99; BMI 21.7
--- NOTE | 2022-02-09 16:40 | RAD_ITS ---
STUDY: RIGHT FOOT X-RAY SERIES 1623 HOURS ON 02/09/2022 CLINICAL: 61-year-old female with a right foot injury. TECHNIQUE: 3 view(s) of the foot. COMPARISON: None. FINDINGS: There is no evidence of fractures or dislocations. No osseous lytic, sclerotic, or mass lesions are evident. There are hammertoe deformities of the third through fifth toes. There are mild osteophytic degenerative changes at the distal interphalangeal joints of all phalanges. A very small Achilles spur is present. The pedal arch is normal. RAD/Foot min 3 Views IMPRESSION: 1. No fractures or dislocations. 2. Mild osteophytic degenerative changes of the distal interphalangeal joints of all phalanges. 3. Hammertoe deformities the third through fifth toes. 4. Very small Achilles spur. Electronically Signed: Shady Campos MD at 17:12 EDT ,
[2022-02-09 17:39] VITALS: RESP 16
--- NOTE | 2022-02-09 17:39 | ED.VIS.LOWEX ---
HPI History of Present Illness HPI Narrative: Injured right foot primarily great toe versus neighbors gait Chief Complaint: Lower Extremity Injury Informant: patient Occured/Mechanism Mechanism/Context: Yes injury and Yes blunt trauma Onset/Context/Timing Onset: Days Context: Sudden Onset Timing: Continuous Quality of Pain: Dull and Aching Current Severity: Mild Maximum Severity: Mild Associated Symptoms Associated Symptoms: Negative for Parasthesia, Weakness or Loss of Funtion Narrative Narrative: 61-year-old female history of COPD. Was at her neighbor's home tripped on a neighbors gate jamming her foot against it injuring her right great toe. This occurred Wednesday evening. She is able to walk on it. She denies any other injuries. No head injury. No LOC. She is on no blood thinners. Prior similar symptoms: No Recent Illness/Hospitalization: No PFSH PFSH Medical History Anxiety and depression Atopic dermatitis Back pain Cirrhosis of liver Closed subcapital fracture of neck of right femur COPD (chronic obstructive pulmonary disease) Cystitis Degenerative arthritis Fall at home H pylori ulcer Hematemesis Heroin addiction Herpes zoster High cholesterol History of alcoholism History of hepatitis C History of illicit drug use Hyperlipidemia Impetigo Injury of head and neck Peptic ulcer disease Pleural effusion on right Restless legs Seasonal allergies Sinusitis, acute Thrombocytopenia Tobacco dependence due to cigarettes Vitamin D deficiency Home Medications lactulose 10 gram/15 mL oral solution (Constulose) 15 ml PO TID 11/10/21 [History Last Taken Unknown] zinc sulfate 50 mg zinc (220 mg) capsule 1 cap PO DAILY 11/10/21 [History Last Taken Unknown] prednisone 50 mg tablet 50 mg PO DAILY 5 days #5 tabs 01/20/22 [Rx Last Taken Unknown] Allergy/AdvReac Type Severity Reaction Status Date / Time trazodone Allergy Mild leg cramps Verified 02/09/22 16:20 naproxen [From Naprosyn] AdvReac Upset Verified 02/09/22 16:20 Stomach tramadol AdvReac Itching Verified 02/09/22 16:20 Family History Mother FH: mental illness HLD (hyperlipidemia) Heart disease Thyroid disorder Aunt No problems noted. Grandmother Heart disease Aunt Diabetes HLD (hyperlipidemia) Hypertension Grandfather COPD (chronic obstructive pulmonary disease) Surgical History Cervical vertebral fusion H/O colonoscopy H/O: hysterectomy History of back surgery History of back surgery History of breast biopsy History of D&C History of esophagogastroduodenoscopy (EGD) History of open reduction and internal fixation (ORIF) procedure S/P cholecystectomy S/P shoulder surgery S/P TIPS (transjugular intrahepatic portosystemic shunt) Status post lumbar surgery Social History adopted: No household members: other details: Her granddaughter lives with her (17 years old). She has custody X 11 year housing: apartment number of children: 3 current occupational status: unemployed Smoking Status: Former smoker Tobacco: How many years used: 32 Electronic Cigarette Use: not used how long ago did patient quit smoking: started smoking at age 28 and smoked 1/2- 1.5 PPD....she is still smoking alcohol intake: former details: She has been an alcoholic in the past. quit in 2001 substance use type: does not use ROS ROS ED ROS Narrative Denies recent illness. Review of Systems ROS Unobtainable: Denies due to encephalopathy Constitutional Constitutional ED: Denies chills or fever(s) Eyes Eyes: Denies blurry vision ENT ENT ED: Denies ear pain Cardiovascular Cardiovascular: Denies chest pain Respiratory/Chest Respiratory/Chest: Reports dyspnea; Denies cough Gastrointestinal Gastrointestinal: Denies abdominal pain Genitourinary Genitourinary ED: Denies dysuria or hematuria Musculoskeletal Musculoskeletal: Denies arthralgias Integumentary Denies abscess Neurologic Neurologic: Denies headache(s) Psychiatric Psychiatric: Denies anxiety Endocrine Endocrinology: Denies polydipsia Hematologic/Lymphatic Hematologic/Lymphatic: Denies easy bleeding Allergic/Immunologic Allergic/Immunologic ED: Denies mouth swelling EXAM Physical Exam Narrative Exam Narrative: 7-year-old female no acute distress. Vital signs stable afebrile. Pulse ox 9% on room air no signs hypoxia. H EENT exam unremarkable atraumatic. Neck nontender. Lungs with coarse breath sounds. Few scattered wheezes. History of COPD. This is her baseline according the patient. Heart regular rhythm rate about 90 no murmur. Chest wall nontender. Abdomen soft nontender. Pelvic girdle intact. Back nontender. Well-healed prior lumbar surgical scar. Moving all 4 extremities. Right great toe mildly swollen and tender bruised. No gross bony deformity. Able to wiggle all toes. Foot otherwise nontender. Hips are nontender. Neurologically she is awake and alert. Const Vital Signs: 02/09/22 16:20 Temperature 98.9 F Temperature Source Temporal Pulse Rate 91 Respiratory Rate 16 Blood Pressure 140/60 H Blood Pressure Mean 86 Pulse Ox 99 Oxygen Delivery Method Room Air Positive well nourished and well developed; Negative for obese, cachectic, contractures or unkempt General Appearance ED: well developed and NAD; Negative for unkempt, cachectic or contractures Nutritional Appearance: Negative for cachectic or obese HEENT Reports moist mucous membranes normocephalic and atraumatic; Negative for trauma Eyes PERRL General Eye ED: Negative for other Neck full ROM and supple Thyroid: Negative for tender Lymph Lymphatic: Negative for other Chest Wall inspection of chest normal and palpation of chest normal Resp normal respiratory effort, no retractions and No clear to auscultation bilaterally Effort and Inspection: Negative for pain with movement Auscultation: wheezes; Negative for rales or rhonchi Cardio regular rate, regular rhythm, S1 normal heart sound, S2 normal heart sound and no murmurs Rate: Negative for bradycardia or tachycardic Rhythm: Negative for abnormal rhythm GI non-tender, non-distended and no masses Inspection: Negative for abdominal distention Auscultation: normoactive bowel sounds Palpation: soft; Negative for tender or guarding Back/Spine no CVA tenderness General Back: Negative for CVA tenderness Cervical Spine: Negative for cervical spine tenderness Thoracic Spine / Upper Back: Negative for thoracic spinal tenderness Lumbar Spine / Lower Back: Negative for lumbar spinal tenderness Extremity normal to inspection and full ROM Extremity Narrative: Except right great toe bruised. No deformity. Mildly swollen. Tender to palpation. General Extremety ED: Yes edema; Negative for cyanosis General Extremity: edema; Negative for cyanosis Neuro oriented x3 and moves all extremities Sensorium / Orientation: alert, oriented to person, oriented to place and oriented to time; Negative for orientation impaired, confused or lethargic Motor Exam: strength 5/5 throughout Psych mental status grossly normal Appearance: Negative for unkempt Speech: No other Mood & Affect: Negative for anxious Skin no wounds Lesions: no lesions Rashes: no rashes Trauma: Negative for abrasion or laceration MDM MDM MDM Narrative Medical decision making narrative: 61-year-old jammed her foot against her neighbors gate accidentally. X-ray shows no fracture. Wound to be cleaned and dressed. She will be given 1 [place] for pain. Discharged home to use Tylenol and/or Motrin. Radiography Diagnostic Testing: Clinical Impression(s) from Imaging Studies Foot X-Ray 02/09/22 16:40 IMPRESSION: 1. No fractures or dislocations. 2. Mild osteophytic degenerative changes of the distal interphalangeal joints of all phalanges. 3. Hammertoe deformities the third through fifth toes. 4. Very small Achilles spur. Electronically Signed: Shady Campos MD at 17:12 EDT , Right foot x-ray, 3 views, interpreted by myself and the radiologist shows no acute abnormality. Arthritic changes. No fracture or dislocation. Discharge Plan Triage Chief Complaint: Lower Extremity Injury ED Provider: Robbi Barker Dx/Rx/DC Orders Clinical Impression: Fall, COPD (chronic obstructive pulmonary disease), Contusion of great toe Instructions: ED Foot Contusion Prescriptions: No Action lactulose [Constulose] 10 gram/15 mL solution 15 ml PO TID zinc sulfate 50 mg zinc (220 mg) capsule 1 cap PO DAILY prednisone 50 mg tablet 50 mg PO DAILY 5 Days Qty: 5 0RF Primary Care Provider: Care Physician,No Primary Referrals: Basilio Colmenares MD [Med Staff - [employer]] - 10-14 Days if not better Care Physician,No Primary [Primary Care Provider] - Activity Restrictions/Additional Instructions: Keep toe clean and apply antibiotic ointment daily. Ice and elevate to decrease pain and swelling. Increase activity as tolerated. Motrin and Tylenol for pain. Follow-up if not improving. Disposition Disposition: Home, Self Care
[2022-02-09] MEDS: HYDROcodone Bitartrate/Apap 5/325 Tablet PO (17:42)
== END 2022-02-09 17:55 | disposition home or self-care (01) ==
PROVIDERS: Emergency Provider Emergency Medicine; Visit Provider Emergency Medicine
DX: S90.119A Contusion of unspecified great toe without damage to nail, initial encounter (principal); J44.9 Chronic obstructive pulmonary disease, unspecified; E78.5 Hyperlipidemia, unspecified; W23.0XXA Caught, crushed, jammed, or pinched between moving objects, initial encounter; F17.210 Nicotine dependence, cigarettes, uncomplicated; E78.00 Pure hypercholesterolemia, unspecified
CPT/HCPCS: 73630; 99283

== ENCOUNTER 2022-02-27 13:25 | Emergency (ER) | payer MEDICAID, SELFPAY ==
[2022-02-27] VITALS (8 sets, daily range): BP systolic 142–151; BP diastolic 61–74; PULSE 91–115; RESP 16–20; TEMP 36.4–37.1; O2SAT 97–98; BMI 21.7
--- NOTE | 2022-02-27 14:01 | RAD_ITS ---
STUDY: X-RAY CHEST REASON FOR EXAM: Female, 61 years old. Cough. Dyspnea. Covid positive. TECHNIQUE: PA and lateral views of the chest. COMPARISON: Comparison is made with prior examination 01/20/2022. FINDINGS: EKG electrodes are seen. Hyperinflation. Stable pleural parenchymal changes at the right lung base with a small right effusion and/or pleural thickening with a right basilar scarring. The left lung is clear. Normal size heart. Normal mediastinum and jose. Normal visualized pulmonary arteries. There is atherosclerotic tortuosity of the aortic arch and descending thoracic aorta. There is a levoscoliosis of the thoracic spine. Fusion in the lower cervical spine. Surgical clips are seen in the right upper quadrant with a stent. RAD/Chest PA and Lateral IMPRESSION: Hyperinflation. Stable pleural parenchymal changes at the right lung base. Electronically Signed: Daniel Mason MD at 15:02 EDT ,
--- NOTE | 2022-02-27 14:04 | EX.ED.DYSGE1 ---
HPI <YUE Arvizu - Last Filed: 02/27/22 16:53> History of Present Illness Chief Complaint: Shortness of Breath Narrative Narrative: 61-year-old female with history of COPD, cirrhosis presents to the emergency department with complaints of cough, ongoing fatigue. Patient states 11 days ago she was diagnosed with COVID-19, she is not vaccinated. Patient states that she today brought her granddaughter here for evaluation and because she is still coughing, having worsening shortness of breath she is here for evaluation. She denies any fevers or chills. Patient states she does have history of COPD, she quit smoking 1 year ago. Patient states that she is now has wheezing and this is new for her. She is here for evaluation PFS <YUE Arvizu - Last Filed: 02/27/22 16:53> [facility] Medical History Anxiety and depression Atopic dermatitis Back pain Cirrhosis of liver Closed subcapital fracture of neck of right femur COPD (chronic obstructive pulmonary disease) Cystitis Degenerative arthritis Fall at home H pylori ulcer Hematemesis Heroin addiction Herpes zoster High cholesterol History of alcoholism History of hepatitis C History of illicit drug use Hyperlipidemia Impetigo Injury of head and neck Peptic ulcer disease Pleural effusion on right Restless legs Seasonal allergies Sinusitis, acute Thrombocytopenia Tobacco dependence due to cigarettes Vitamin D deficiency Home Medications lactulose 10 gram/15 mL oral solution (Constulose) 15 ml PO TID 11/10/21 [History Last Taken Unknown] zinc sulfate 50 mg zinc (220 mg) capsule 1 cap PO DAILY 11/10/21 [History Last Taken Unknown] prednisone 50 mg tablet 50 mg PO DAILY 5 days #5 tabs 01/20/22 [Rx Last Taken Unknown] Allergy/AdvReac Type Severity Reaction Status Date / Time trazodone Allergy Mild leg cramps Verified 02/27/22 13:25 naproxen [From Naprosyn] AdvReac Upset Verified 02/27/22 13:25 Stomach tramadol AdvReac Itching Verified 02/27/22 13:25 Family History Mother FH: mental illness HLD (hyperlipidemia) Heart disease Thyroid disorder Aunt No problems noted. Grandmother Heart disease Aunt Diabetes HLD (hyperlipidemia) Hypertension Grandfather COPD (chronic obstructive pulmonary disease) Surgical History Cervical vertebral fusion H/O colonoscopy H/O: hysterectomy History of back surgery History of back surgery History of breast biopsy History of D&C History of esophagogastroduodenoscopy (EGD) History of open reduction and internal fixation (ORIF) procedure S/P cholecystectomy S/P shoulder surgery S/P TIPS (transjugular intrahepatic portosystemic shunt) Status post lumbar surgery Social History adopted: No household members: other details: Her granddaughter lives with her (17 years old). She has custody X 11 year housing: apartment number of children: 3 current occupational status: unemployed Smoking Status: Former smoker Tobacco: How many years used: 32 Electronic Cigarette Use: not used how long ago did patient quit smoking: started smoking at age 28 and smoked 1/2- 1.5 PPD....she is still smoking alcohol intake: former details: She has been an alcoholic in the past. quit in 2001 substance use type: does not use ROS <Ricardo Castañeda NP-Mark Anthony - Last Filed: 02/27/22 16:53> ROS ED ROS Narrative Constitutional: Negative for fever, chills, weight loss, weakness Eyes: Negative for vision loss, vision change, double vision ENT: Negative for any sore throat, ear pain, congestion Cardiovascular: Negative for any chest pain, tightness, palpitations Respiratory: Negative for any sputum production, hemoptysis.positive for cough, dyspnea, dyspnea on exertion, orthopnea Gastrointestinal: Negative for any abdominal pain, nausea, vomiting, diarrhea, constipation, blood in stool, blood in vomit : Negative for any urinary frequency, dysuria, retention, blood in urine Muscle skeletal: Negative for any muscle joint pain, stiffness, myalgias, arthralgias, neck pain, back pain Neurological: Negative for any headache, syncope, numbness or tingling, dizziness Skin: Negative for any rashes, lumps, itching, abrasions, lacerations Psychiatric: Negative for any depression, anxiety, stress, suicidal ideation, homicidal ideation Hematologic: Negative for any easy bruising, excessive bruising, easy bleeding Allergies: Negative for any eczema, hives, rash EXAM <Ricardo CallowayYUE hudson - Last Filed: 02/27/22 16:53> Physical Exam Narrative Exam Narrative: Vital signs reviewed. Vital signs are stable HEET: Head normocephalic atraumatic, TMs clear bilaterally. Posterior pharynx is clear, moist mucous membranes. Nares clear bilaterally. Neck: Supple with no lymphadenopathy or tenderness. No signs of meningismus, negative jolt sign. Cardiac: Regular rate and rhythm no murmurs gallops or rubs, equal peripheral pulses bilaterally. Respiratory: Patient has expiratory wheezes bilaterally, worse on the right than the left. No chest tenderness. Abdomen: Soft, nontender, nondistended. No abdominal bruit or pulsatile masses. No hepatosplenomegaly Extremities: No peripheral edema, no signs of gross trauma or deformity. Active full range of motion of all extremities. Neuro: Cranial nerves II through XII intact, no focal neurological deficits. Skin: Clean dry and intact with no rash, purpura, petechiae, vesicles or pustules. Backs/flank: No CVA tenderness, no midline spinal tenderness, no deformity. Psych: Normal mood and affect. No SI, HI or acute psychosis. Const Vital Signs: 02/27/22 13:25 02/27/22 13:56 02/27/22 13:56 Temperature 98.7 F 98.7 F Temperature Source Temporal Temporal Pulse Rate 115 H 115 H Respiratory Rate 20 H 20 H Respiratory Effort Short of Breath Blood Pressure 151/74 H 151/74 H Blood Pressure Mean 99 99 Pulse Ox 97 97 Oxygen Delivery Method Room Air Room Air Room Air 02/27/22 14:21 02/27/22 16:37 02/27/22 14:27 Temperature 97.5 F L 97.5 F L Temperature Source Temporal Temporal Pulse Rate 100 98 98 Respiratory Rate 18 16 16 Respiratory Effort Blood Pressure 142/70 H 142/70 H Blood Pressure Mean 94 94 Pulse Ox 98 98 Oxygen Delivery Method Room Air Room Air 02/27/22 15:27 02/27/22 16:27 Temperature 97.5 F L 97.5 F L Temperature Source Temporal Temporal Pulse Rate 98 98 Respiratory Rate 16 16 Respiratory Effort Blood Pressure 142/70 H 142/70 H Blood Pressure Mean 94 94 Pulse Ox 98 98 Oxygen Delivery Method Room Air Room Air <Dr. Seven Le, DO - Last Filed: 03/06/22 20:43> Physical Exam Const Vital Signs: 02/27/22 13:25 02/27/22 13:56 02/27/22 13:56 Temperature 98.7 F 98.7 F Temperature Source Temporal Temporal Pulse Rate 115 H 115 H Respiratory Rate 20 H 20 H Respiratory Effort Short of Breath Blood Pressure 151/74 H 151/74 H Blood Pressure Mean 99 99 Pulse Ox 97 97 Oxygen Delivery Method Room Air Room Air Room Air 02/27/22 14:21 02/27/22 16:37 02/27/22 14:27 Temperature 97.5 F L 97.5 F L Temperature Source Temporal Temporal Pulse Rate 100 98 98 Respiratory Rate 18 16 16 Respiratory Effort Blood Pressure 142/70 H 142/70 H Blood Pressure Mean 94 94 Pulse Ox 98 98 Oxygen Delivery Method Room Air Room Air 02/27/22 15:27 02/27/22 16:27 Temperature 97.5 F L 97.5 F L Temperature Source Temporal Temporal Pulse Rate 98 98 Respiratory Rate 16 16 Respiratory Effort Blood Pressure 142/70 H 142/70 H Blood Pressure Mean 94 94 Pulse Ox 98 98 Oxygen Delivery Method Room Air Room Air [facility] <YUE Arvizu - Last Filed: 02/27/22 16:53> [facility] Lab Data Labs: Laboratory Results - last 24 hr 02/27/22 02/27/22 02/27/22 14:15 14:15 14:50 WBC 10.1 RBC 3.83 L Hgb 11.3 L Hct 35.5 L MCV 92.7 MCH 29.5 MCHC 31.8 L RDW Std Deviation 54.4 H RDW Coeff of Heath 16.4 H Plt Count 64 L MPV 11.3 Immature Gran % (Auto) 0.600 Neut % (Auto) 84.6 H Lymph % (Auto) 7.1 L Vance % (Auto) 7.2 Eos % (Auto) 0.3 Baso % (Auto) 0.2 Absolute Neuts (auto) 8.6 H Absolute Lymphs (auto) 0.72 L Nucleated RBC % 0 Platelet Estimate MOD DEC RBC Morphology N CHROM Anisocytosis RARE Macrocytosis RARE Ovalocytes RARE D-Dimer Quant (PE/DVT) 1.10 H* Sodium 146 H Potassium 3.6 Chloride 116 H Carbon Dioxide 22.0 Anion Gap 8 BUN 18 Creatinine 0.59 Estim Creat Clear Calc 102.29 Est GFR (MDRD) Af Amer 134 Est GFR (MDRD) Non-Af 110 BUN/Creatinine Ratio 30.5 H Glucose 160 H Calcium 7.9 L Radiography Diagnostic Testing: Clinical Impression(s) from Imaging Studies Chest X-Ray 02/27/22 14:01 IMPRESSION: Hyperinflation. Stable pleural parenchymal changes at the right lung base. Electronically Signed: Daniel Mason MD at 15:02 EDT , Chest CTA 02/27/22 15:17 IMPRESSION: COPD and mild ASHD. Right pleural effusion with consolidation of the right lower lobe. No evidence for pulmonary embolus Electronically Signed: Johan Brock MD at 16:29 EDT , EKG EKG shows sinus tachycardia: Attestation: I personally reviewed and interpreted this EKG as follows: Comments: Sinus tachycardia, rate 105 bpm, GA 160 ms, QRS duration 74 ms, no acute ST elevation, no acute infarct noted. Treatment and Re-Evaluation Narrative: Patient presents to the emergency department with worsening shortness of breath, cough after having COVID-19 11 days ago. Patient is here with her granddaughter. Patient appears nontoxic, patient is not hypoxic. Patient did receive a basic respiratory work-up, patient's chest x-ray shows a stable pleural parenchymal changes of the right lung base. Some hyperinflation. Her by ER physician. Patient did receive some basic laboratory values. Patient's laboratory values show slight anemia with hemoglobin 11.3. Patient's D-dimer was elevated at 1.1, patient's sodium was slightly elevated 146, patient due to the elevated dimer did have a CTA to rule out a blood clot. Patient showed COPD, right pleural effusion with some consolidation in the right lower lobe, I do believe this is secondary COVID-19. Patient has no evidence of pulmonary embolus. Patient has not fevered, she has no new cough. Patient states that she is just continuing feeling short of breath since the COVID-19. Patient was given breathing treatments as well as steroids here, patient does feel better after the treatments. Patient did have an ambulatory pulse ox, she did not drop below 92% with 110 pulse rate. Patient is supposed to be on oxygen as needed at home however she is out and she is unsure how to get a hold of the medical supply store. Patient does have the numbers at her house, social work to try to help her. Patient is stable for discharge. She will continue to use her oxygen as needed, she is instructed to return for any worsening symptoms. Patient is currently on steroids, no antibiotics will be ordered. <Dr. Seven De La Fuente, DO - Last Filed: 03/06/22 20:43> [facility] MDM Narrative Medical decision making narrative: Attending note: Patient seen and evaluated with electrician station assistant. I perform my own [id number] evaluation. I agree with the plan of work-up. Presents continued dyspnea. History of COPD. 10 days ago discharged from [facility] after a 10-day stay for COVID. Her second bout of COVID nonvaccinated. She went home on oxygen. Remote tobacco. Increasing wheezing and dyspnea. She currently on steroid taper. Has inhalers at home. During my exam wheezing improved after aerosol treatments White count 10 hemoglobin 11.3 creatinine 0.59. Chest x-ray reviewed myself read by radiology right pleural effusion. No infiltrate. Slight tachycardia. EKG sinus rate of [address] or T wave changes. D-dimer added with her tachycardia and recent COVID for low risk Wells criteria for PE. Lab Data Attestation: I reviewed the patient's lab results. Labs: Laboratory Results - last 24 hr 02/27/22 02/27/22 02/27/22 14:15 14:15 14:50 WBC 10.1 RBC 3.83 L Hgb 11.3 L Hct 35.5 L MCV 92.7 MCH 29.5 MCHC 31.8 L RDW Std Deviation 54.4 H RDW Coeff of Heath 16.4 H Plt Count 64 L MPV 11.3 Immature Gran % (Auto) 0.600 Neut % (Auto) 84.6 H Lymph % (Auto) 7.1 L Vance % (Auto) 7.2 Eos % (Auto) 0.3 Baso % (Auto) 0.2 Absolute Neuts (auto) 8.6 H Absolute Lymphs (auto) 0.72 L Nucleated RBC % 0 Platelet Estimate MOD DEC RBC Morphology N CHROM Anisocytosis RARE Macrocytosis RARE Ovalocytes RARE D-Dimer Quant (PE/DVT) 1.10 H* Sodium 146 H Potassium 3.6 Chloride 116 H Carbon Dioxide 22.0 Anion Gap 8 BUN 18 Creatinine 0.59 Estim Creat Clear Calc 102.29 Est GFR (MDRD) Af Amer 134 Est GFR (MDRD) Non-Af 110 BUN/Creatinine Ratio 30.5 H Glucose 160 H Calcium 7.9 L Radiography Diagnostic Testing: Clinical Impression(s) from Imaging Studies Chest X-Ray 02/27/22 14:01 IMPRESSION: Hyperinflation. Stable pleural parenchymal changes at the right lung base. Electronically Signed: Daniel Mason MD at 15:02 EDT , Chest CTA 02/27/22 15:17 IMPRESSION: COPD and mild ASHD. Right pleural effusion with consolidation of the right lower lobe. No evidence for pulmonary embolus Electronically Signed: Johan Brock MD at 16:29 EDT , Discharge Plan Triage Chief Complaint: Shortness of Breath ED Midlevel Provider: Ricardo Castañeda ED Provider: Seven De La Fuente Dx/Rx/DC Orders Clinical Impression: Acute exacerbation of chronic obstructive pulmonary disease, COVID-19 long hauler, Pleural effusion on right Instructions: Asthma and COPD, Coronavirus Disease 2019 (COVID-19): Caring for Yourself or Others Prescriptions: No Action lactulose [Constulose] 10 gram/15 mL solution 15 ml PO TID zinc sulfate 50 mg zinc (220 mg) capsule 1 cap PO DAILY prednisone 50 mg tablet 50 mg PO DAILY 5 Days Qty: 5 0RF Primary Care Provider: Care Physician,No Primary Referrals: Care Physician,No Primary [Primary Care Provider] - Activity Restrictions/Additional Instructions: You need to follow-up with your PCP. Continue take your steroids. You need to call the nurse and get your oxygen set up. Return for any worsening symptoms. Disposition Disposition: Home, Self Care Discharge Date/Time: 02/27/22 17:06
[2022-02-27] MEDS: predniSONE 20 MG Tablet 60 MG PO (14:17)
[2022-02-27] MEDS: 0.9% Normal Saline 1,000 ML 999 ML IV (14:17)
[2022-02-27] MEDS: Albuterol 2.5 MG/3 ML VIAL.NEB. INHALATION (14:20)
[2022-02-27] MEDS: Ipratropium/Albuterol Sulfate 3 ML AMPUL.NEB INHALATION (14:20)
[2022-02-27 14:29] LABS: Absolute Lymphocyte Count 0.72 X10^3/uL (0.83-4.51); Absolute Neutrophil Count 8.6 X10^3/uL (2.0-7.7); Basophil# 0.02 X10^3/uL; Basophil% 0.2 % (0-1); Eosinophil# 0.03 X10^3/uL; Eosinophils% 0.3 % (0-5); Hematocrit 35.5 % (37-47); Hemoglobin 11.3 g/dL (12.0-15.0); Lymphocyte # 0.72 X10^3/ul (0.83-4.51); Lymphocyte % 7.1 % (19-41); Mean Corp Hgb Conc 31.8 g/dL (32-36); Mean Corpuscular Hgb 29.5 pg (27.0-32.0); Mean Corpuscular Volume 92.7 fL (81-99); Mean Platelet Vol. 11.3 fl (6.2-12.0); Monocyte# 0.73 X10^3/uL; Monocyte% 7.2 % (0-10); NRBC Flagged by Analyzer 0 % (0-5); Neutrophil # 8.56 X10^3/uL (2.7-7.7); Neutrophil % 84.6 % (47-70); POSITIVE COUNT YES; Platelet Count 64 K/mm3 (150-450); RBC Distribution Width CV 16.4 % (11.6-14.6); RBC Distribution Width SD 54.4 fl (35.1-43.9); Red Blood Count 3.83 M/mm3 (4.2-5.4); White Blood Count 10.1 K/mm3 (4.4-11.0)
[2022-02-27 14:41] LABS: Anion Gap 8 (5-15); BUN 18 mg/dL (7-18); BUN/Creat Ratio 30.5 RATIO (10-20); Calcium,Total 7.9 mg/dL (8.5-10.1); Chloride 116 mmol/L (98-107); Creatinine, Serum 0.59 mg/dL (0.55-1.02); EST Glomerular Filtration Rate 110 mL/min (>60); Est Glom Filt Rate - Afr Amer 134 mL/min (>60); Estimated Creatinine Clearance 102.29 ml/min; Glucose 160 mg/dL (74-106); Potassium 3.6 mmol/L (3.5-5.1); Sodium Level 146 mmol/L (136-145)
[2022-02-27 14:51] LABS: Differential Indicated SCAN CRITERIA MET
--- NOTE | 2022-02-27 15:17 | CT_ITS ---
STUDY: CTA CHEST REASON FOR EXAM: Female, 61 years old. shortness of breath RADIATION DOSAGE (If Supplied By Facility): CTDIvol = ( 11.73 ) mGy, DLP = ( 427.76 ) mGycm TECHNIQUE: The examination was performed with the intravenous administration of IV 100mL Isovue-370. Post-processing of the angiographic images was performed, with multiplanar reformation and 3D reconstruction. Individualized dose optimization techniques were used for this CT. COMPARISON: 11/10/2021 FINDINGS: Normal enhancement of the main pulmonary artery and right and left pulmonary arteries. Normal enhancement of the bilateral peripheral pulmonary arteries. There is no demonstrated pulmonary embolism. Minor atherosclerotic changes of the aorta without evidence for aneurysm. There is no demonstrated aortic dissection. Heart size is normal. There is minor coronary artery calcification. Normal mediastinum. Normal hilar regions. Normal visualized trachea and bronchi. The lungs are well expanded. There is minor diffuse interstitial thickening and emphysematous blebs are noted bilaterally more pronounced in the upper lobes. There is moderate size right pleural effusion with consolidation of the right lower lobe. Normal chest wall structures. Dorsal spine demonstrates degenerative change There are cirrhotic changes seen within the liver status post TIPS placement. Gallbladder has been removed. Status post surgical changes involving the lumbar spine CT/CTA Chest W/WO Contrast IMPRESSION: COPD and mild ASHD. Right pleural effusion with consolidation of the right lower lobe. No evidence for pulmonary embolus Electronically Signed: Johan Brock MD at 16:29 EDT ,
[2022-02-27 15:19] LABS: Anisocytosis RARE; Macrocytosis RARE; Ovalocyte RARE; Platelet Estimate MOD DEC (ADEQ); Red Cell Morphology N CHROM NORMAL (NORM C&C)
--- NOTE | 2022-02-27 18:15 | CM.ED ---
CHIQUIS Note CHIQUIS was advised by Dr. Maldonado that patient was in [facility] for 10 days and went home with home oxygen. However, in the ED patient was at 98%. He said that her oxygen was out 2 days ago and someone was supposed to get a new oxygen tank but she doesn not know the agency name. SW met with patient. She said that this morning someone came to the house but she is unsure if it was home health PT or oxygen. Patient said that she is unsure of where her oxygen tank was from. SW asked if she could call anyone. Patient tess that she has a nurse from [facility] and she was going to get new oxygen for her today. SW asked if patient remembers the name of the oxygen supplier and she again said no. SW offered names of suppliers and patient was unable to identify a provider but I think it was on the screen in the lobby. RN Junaid said that patient has her oxygen from [facility]. SW went on line and could not find this providers name. CHIQUIS called [facility] Hospital information Management and was told to do a stat request for discharge summary. CHIQUIS asked patient to sign a KENDALL for [facility] to get medical records and she did. CHIQUIS faxed KENDALL for [facility] and [facility] to [facility] Stat medical records. As of this time SW has not received medical records. CHIQUIS explained what this comic book writer is attempting to do and COLTON Silva said that he will discharge patient home and she can follow up with her nurse from [facility]. CHIQUIS has not secured any records from [facility] at this time 6:21pm Plan: CHIQUIS attempted to resume oxygen for patient in the home however, patient unable to recall name of provider and [facility] not received as of this time (6:21pm Yelena SCHROEDER
== END 2022-02-27 17:06 | disposition home or self-care (01) ==
PROVIDERS: Nurse Practitioner; Emergency Provider Emergency Medicine; Visit Provider Emergency Medicine
DX: J44.1 Chronic obstructive pulmonary disease with (acute) exacerbation (principal); K74.60 Unspecified cirrhosis of liver; J90 Pleural effusion, not elsewhere classified; U07.1 COVID-19; E78.00 Pure hypercholesterolemia, unspecified; F32.9 Major depressive disorder, single episode, unspecified; F41.9 Anxiety disorder, unspecified; M19.90 Unspecified osteoarthritis, unspecified site; Z86.19 Personal history of other infectious and parasitic diseases; Z87.81 Personal history of (healed) traumatic fracture; Z79.52 Long term (current) use of systemic steroids; Z87.891 Personal history of nicotine dependence
CPT/HCPCS: 71046; 71275; 80048; 85025; 85379; 93005; 94640; 99284; J7030; Q9967; A4216

== ENCOUNTER 2022-05-12 15:04 | Emergency (ER) | payer MEDICAID, SELFPAY ==
[2022-05-12 15:04] VITALS: BP 140/67; PULSE 73; RESP 16; TEMP 36.4; O2SAT 98; BMI 23.7
--- NOTE | 2022-05-12 16:00 | ED.VIS.FEGU ---
HPI <CHARLY Mustafa - Last Filed: 05/12/22 21:55> HPI - Female History of Present Illness Chief Complaint: Flank Pain Narrative Narrative: Patient presents today with right-sided flank pain that she has had for 8 months. She states morning she woke up and the pain moved and is now present across her lower back. Patient states that she has had brown urine for the past several months, however, she does not drink water and only really drinks 7-Up. Patient states she has a history of UTIs. She states she has no history of kidney stones. Patient states she does have some generalized abdominal pain, however, she has had this for months. Patient has a history of stomach ulcers, liver cirrhosis, and COPD. [facility] <CHARLY Mustafa - Last Filed: 05/12/22 21:55> [facility] Medical History Anxiety and depression Atopic dermatitis Back pain Cirrhosis of liver Closed subcapital fracture of neck of right femur COPD (chronic obstructive pulmonary disease) Cystitis Degenerative arthritis Fall at home H pylori ulcer Hematemesis Heroin addiction Herpes zoster High cholesterol History of alcoholism History of hepatitis C History of illicit drug use Hyperlipidemia Impetigo Injury of head and neck Peptic ulcer disease Pleural effusion on right Restless legs Seasonal allergies Sinusitis, acute Thrombocytopenia Tobacco dependence due to cigarettes Vitamin D deficiency Home Medications lactulose 10 gram/15 mL oral solution (Constulose) 15 ml PO TID 11/10/21 [History Last Taken Unknown] zinc sulfate 50 mg zinc (220 mg) capsule 1 cap PO DAILY 11/10/21 [History Last Taken Unknown] prednisone 50 mg tablet 50 mg PO DAILY 5 days #5 tabs 01/20/22 [Rx Last Taken Unknown] albuterol sulfate 90 mcg/actuation breath activated powder inhaler 2 inh inhalation Q6H PRN shortness of breath or wheezing #1 ea 05/12/22 [Rx Last Taken Unknown] lidocaine 5 % patch and lidocaine 2.5 %-prilocaine 2.5 % topical cream See Rx Instructions .Route .COMPLEX #1 ea 05/12/22 [Rx Last Taken Unknown] Allergy/AdvReac Type Severity Reaction Status Date / Time trazodone Allergy Mild leg cramps Verified 02/27/22 13:25 naproxen [From Naprosyn] AdvReac Upset Verified 02/27/22 13:25 Stomach tramadol AdvReac Itching Verified 02/27/22 13:25 Family History Mother FH: mental illness HLD (hyperlipidemia) Heart disease Thyroid disorder Aunt No problems noted. Grandmother Heart disease Aunt Diabetes HLD (hyperlipidemia) Hypertension Grandfather COPD (chronic obstructive pulmonary disease) Surgical History Cervical vertebral fusion H/O colonoscopy H/O: hysterectomy History of back surgery History of back surgery History of breast biopsy History of D&C History of esophagogastroduodenoscopy (EGD) History of open reduction and internal fixation (ORIF) procedure S/P cholecystectomy S/P shoulder surgery S/P TIPS (transjugular intrahepatic portosystemic shunt) Status post lumbar surgery Social History adopted: No household members: other details: Her granddaughter lives with her (17 years old). She has custody X 11 year housing: apartment number of children: 3 current occupational status: unemployed Smoking Status: Light Smoker (<10/day) Tobacco: How many years used: 32 Electronic Cigarette Use: not used how long ago did patient quit smoking: started smoking at age 28 and smoked 1/2- 1.5 PPD....she is still smoking alcohol intake: former details: She has been an alcoholic in the past. quit in 2001 substance use type: does not use ROS <CHARLY Mustafa - Last Filed: 05/12/22 21:55> ROS ED Constitutional Constitutional ED: Denies chills, fever(s) or sweats Eyes Eyes: Denies blurry vision or change in vision ENT ENT ED: Denies rhinorrhea or sore throat Cardiovascular Cardiovascular: Denies chest pain or palpitations Respiratory/Chest Respiratory/Chest: Denies cough, dyspnea or dyspnea on exertion Gastrointestinal Gastrointestinal: Reports abdominal pain and nausea; Denies constipation, diarrhea or vomiting Genitourinary Genitourinary ED: Denies dysuria, hematuria or urinary frequency Musculoskeletal Musculoskeletal: Reports back pain; Denies arthralgias or myalgias Integumentary Denies abscess or Abrasions Neurologic Neurologic: Denies headache(s), paresthesias or weakness Psychiatric Psychiatric: Denies anxiety, depression or suicidal ideation EXAM <CHARLY Mustafa - Last Filed: 05/12/22 21:55> Physical Exam Const Vital Signs: 05/12/22 15:04 05/12/22 17:57 05/12/22 17:57 Temperature 97.6 F L Temperature Source Temporal Pulse Rate 73 79 Respiratory Rate 16 18 Blood Pressure 140/67 H Blood Pressure Mean 91 Pulse Ox 98 98 Oxygen Delivery Method Room Air Room Air Positive well nourished and well developed General Appearance ED: well developed and NAD HEENT Reports moist mucous membranes Negative for trauma Eyes PERRL and EOMs intact bilaterally Neck no lymphadenopathy and supple Chest Wall inspection of chest normal Resp normal respiratory effort and clear to auscultation bilaterally Cardio regular rate, regular rhythm and no murmurs GI no masses GI Narrative: Patient has generalized tenderness to palpation to her abdomen. Auscultation: normoactive bowel sounds Palpation: Negative for guarding or rigid Back/Spine normal ROM General Back: CVA tenderness bilateral Cervical Spine: Negative for cervical spine tenderness Thoracic Spine / Upper Back: Negative for thoracic spinal tenderness Lumbar Spine / Lower Back: Negative for lumbar spinal tenderness Extremity normal to inspection and full ROM Neuro oriented x3, CN's II-XII intact bilaterally and no sensory deficits noted Sensorium / Orientation: alert Motor Exam: strength 5/5 throughout Psych mental status grossly normal Skin no rashes or lesions noted and no wounds <Brian Rosetnhal MD - Last Filed: 05/12/22 21:58> Physical Exam Const Vital Signs: 05/12/22 15:04 05/12/22 17:57 05/12/22 17:57 Temperature 97.6 F L Temperature Source Temporal Pulse Rate 73 79 Respiratory Rate 16 18 Blood Pressure 140/67 H Blood Pressure Mean 91 Pulse Ox 98 98 Oxygen Delivery Method Room Air Room Air MDM <CHARLY Mustafa - Last Filed: 05/12/22 21:55> MDM MDM Narrative Medical decision making narrative: CT of the abdomen and pelvis was obtained due to patient's right-sided flank pain. This scan did not show any kidney or ureteral stones. CT did show right pleural effusion with compression atelectasis of the right lower lobe, liver cirrhosis, and no acute abdominal or pelvic abnormality. Findings have been reviewed with patient and she states that the right pleural effusion is nothing new and it has been evaluated and treated in the past. Patient is aware of her liver cirrhosis and AST and ALT are within normal limits. Patient states she also has COPD and asked if she could have a breathing treatment because she is coughing and began to feel slightly short of breath. After DuoNeb patient stated she was feeling much better does not feel short of breath. Her O2 sat remained at 98% on room air, she was not tachypneic, and she was in no respiratory distress. Patient states she does not currently have a PCP so I have referred her to one. I have encouraged her to follow-up in 3 to 5 days. I have given her a prescription for albuterol because she is currently out of this. Patient was given the pain patches for her back pain. Because she has a history of substance abuse I did not give her prescription for any narcotics. I am comfortable with patient discharging home in stable condition and patient is comfortable with plan. Lab Data Attestation: I reviewed the patient's lab results. Lab results narrative: Platelets 132. Total bilirubin 1.1. Albumin 3.0. UA did not show acute cystitis. Labs: Laboratory Results - last 24 hr 05/12/22 05/12/22 05/12/22 15:53 15:53 17:45 WBC 5.1 RBC 4.78 Hgb 14.1 Hct 42.3 MCV 88.5 MCH 29.5 MCHC 33.3 RDW Std Deviation 46.8 H RDW Coeff of Heath 14.6 Plt Count 132 L MPV 10.1 Immature Gran % (Auto) 0.200 Neut % (Auto) 60.7 Lymph % (Auto) 23.4 Overton % (Auto) 11.2 H Eos % (Auto) 3.7 Baso % (Auto) 0.8 Absolute Neuts (auto) 3.1 Absolute Lymphs (auto) 1.19 Nucleated RBC % 0 Sodium 140 Potassium 3.7 Chloride 111 H Carbon Dioxide 22.0 Anion Gap 7 BUN 12 Creatinine 0.50 L Estim Creat Clear Calc 120.70 Est GFR (MDRD) Af Amer 160 Est GFR (MDRD) Non-Af 132 BUN/Creatinine Ratio 23.8 H Glucose 83 Calcium 8.6 Total Bilirubin 1.10 H AST 24 ALT 17 Alkaline Phosphatase 115 Total Protein 5.8 L Albumin 3.0 L Globulin 2.8 Albumin/Globulin Ratio 1.1 Urine Color Ivon Urine Clarity Clear Urine pH 6.5 Ur Specific [place] 1.020 Urine Protein 15 H Urine Glucose (UA) Normal Urine Ketones 5 H Urine Occult Blood Negative Urine Nitrite Negative Urine Bilirubin Negative Urine Urobilinogen 1 H Ur Leukocyte Esterase 25 H Urine RBC 0 SEEN Urine WBC 0-5 SEEN Ur Squamous Epith Cells 5-10 SEEN Urine Bacteria 0 SEEN Urine Mucus 4+ Radiography Diagnostic Testing: Clinical Impression(s) from Imaging Studies Abdomen/Pelvis CT 05/12/22 16:02 IMPRESSION: 1. Right pleural effusion with compression atelectasis of the right lower lobe. 2. Liver cirrhosis. 3. No acute abdominal or pelvic abnormality. Electronically Signed: Garo Bennett MD at 17:08 EST , CT has also been reviewed and interpreted by attending ED physician. <Brian Rosenthal MD - Last Filed: 05/12/22 21:58> [facility] MDM Narrative Medical decision making narrative: CT of the abdomen and pelvis was obtained due to patient's right-sided flank pain. This scan did not show any kidney or ureteral stones. CT did show right pleural effusion with compression atelectasis of the right lower lobe, liver cirrhosis, and no acute abdominal or pelvic abnormality. Findings have been reviewed with patient and she states that the right pleural effusion is nothing new and it has been evaluated and treated in the past. Patient is aware of her liver cirrhosis and AST and ALT are within normal limits. Patient states she also has COPD and asked if she could have a breathing treatment because she is coughing and began to feel slightly short of breath. After DuoNeb patient stated she was feeling much better does not feel short of breath. Her O2 sat remained at 98% on room air, she was not tachypneic, and she was in no respiratory distress. Patient states she does not currently have a PCP so I have referred her to one. I have encouraged her to follow-up in 3 to 5 days. I have given her a prescription for albuterol because she is currently out of this. Patient was given the pain patches for her back pain. Because she has a history of substance abuse I did not give her prescription for any narcotics. I am comfortable with patient discharging home in stable condition and patient is comfortable with plan. I have personally performed a face to face assessment of the patient and have reviewed the YUKO Note. I performed a substantive portion of the visit including all aspects of the following. My reid findings include: History is right flank pain x8 months Exam is afebrile. Vital signs noted. Regular rate and rhythm. Lungs clear to auscultation bilaterally. Abdomen soft and nontender. No vertebral point tenderness or step-off of spine. Neurovascular intact bilateral lower extremities. Medical Decision Making check labs. Check UA. Check CT. Discharge. Other additions or changes: [None] Lab Data Labs: Laboratory Results - last 24 hr 05/12/22 05/12/22 05/12/22 15:53 15:53 17:45 WBC 5.1 RBC 4.78 Hgb 14.1 Hct 42.3 MCV 88.5 MCH 29.5 MCHC 33.3 RDW Std Deviation 46.8 H RDW Coeff of Heath 14.6 Plt Count 132 L MPV 10.1 Immature Gran % (Auto) 0.200 Neut % (Auto) 60.7 Lymph % (Auto) 23.4 [place] % (Auto) 11.2 H Eos % (Auto) 3.7 Baso % (Auto) 0.8 Absolute Neuts (auto) 3.1 Absolute Lymphs (auto) 1.19 Nucleated RBC % 0 Sodium 140 Potassium 3.7 Chloride 111 H Carbon Dioxide 22.0 Anion Gap 7 BUN 12 Creatinine 0.50 L Estim Creat Clear Calc 120.70 Est GFR (MDRD) Af Amer 160 Est GFR (MDRD) Non-Af 132 BUN/Creatinine Ratio 23.8 H Glucose 83 Calcium 8.6 Total Bilirubin 1.10 H AST 24 ALT 17 Alkaline Phosphatase 115 Total Protein 5.8 L Albumin 3.0 L Globulin 2.8 Albumin/Globulin Ratio 1.1 Urine Color Ivon Urine Clarity Clear Urine pH 6.5 Ur Specific [place] 1.020 Urine Protein 15 H Urine Glucose (UA) Normal Urine Ketones 5 H Urine Occult Blood Negative Urine Nitrite Negative Urine Bilirubin Negative Urine Urobilinogen 1 H Ur Leukocyte Esterase 25 H Urine RBC 0 SEEN Urine WBC 0-5 SEEN Ur Squamous Epith Cells 5-10 SEEN Urine Bacteria 0 SEEN Urine Mucus 4+ Radiography Diagnostic Testing: Clinical Impression(s) from Imaging Studies Abdomen/Pelvis CT 05/12/22 16:02 IMPRESSION: 1. Right pleural effusion with compression atelectasis of the right lower lobe. 2. Liver cirrhosis. 3. No acute abdominal or pelvic abnormality. Electronically Signed: Garo Bennett MD at 17:08 EST Reading Location ID and State: [address] [place] [address] Tel , Service support , Discharge Plan Triage Chief Complaint: Flank Pain ED Midlevel Provider: Rossy Gerard ED Provider: Brian Rosenthal Dx/Rx/DC Orders Clinical Impression: Back pain, COPD (chronic obstructive pulmonary disease), Abdominal pain, Cirrhosis of liver, Pleural effusion on right Instructions: ED Back Pain (Acute or Chronic) Prescriptions: New albuterol sulfate 90 mcg/actuation aerosol powdr breath activated 2 inh inhalation Q6H PRN (Reason: shortness of breath or wheezing) Qty: 1 0RF lidocaine-prilocaine 5-2.5-2.5 % kit, patch, medicated, cream See Rx Instructions .ROUTE .COMPLEX Qty: 1 0RF Rx Instructions: apply topically once a day as needed for pain. Do not wear for more than 12 hours. No Action lactulose [Constulose] 10 gram/15 mL solution 15 ml PO TID zinc sulfate 50 mg zinc (220 mg) capsule 1 cap PO DAILY prednisone 50 mg tablet 50 mg PO DAILY 5 Days Qty: 5 0RF Primary Care Provider: Care Physician,No Primary Referrals: Lesa Alexis MD [Med Staff - [employer] Driver] - 3-5 Days Care Physician,No Primary [Primary Care Provider] - Activity Restrictions/Additional Instructions: Please follow-up with the PCP I have referred you to. Stay well-hydrated and return if symptoms worsen. Take ibuprofen and Tylenol as needed for pain. Disposition Disposition: Home, Self Care Discharge Date/Time: 05/12/22 19:16
--- NOTE | 2022-05-12 16:02 | CT_ITS ---
EXAM: CT ABDOMEN AND PELVIS WITHOUT INTRAVENOUS CONTRAST CLINICAL INDICATION: flank pain TECHNIQUE: Helically acquired images were obtained of the abdomen and pelvis without intravenous contrast. This CT exam was performed using one or more of the following dose reduction techniques: automated exposure control, adjustment of the mA and/or kV according to patient size, and/or use of iterative reconstruction technique. This report was created using [employer] report generation technology. COMPARISON: None. FINDINGS: LOWER THORAX: Right pleural effusion noted with compression atelectasis of the right lower lobe. ABDOMEN: LIVER: Nodular contour of the liver consistent with cirrhosis. GALLBLADDER AND BILE DUCTS: Cholecystectomy clips are in place. No intra- or extrahepatic biliary ductal dilation. PANCREAS: Normal. No focal cystic mass. SPLEEN: Normal. Normal size without focal cystic or solid mass. ADRENALS: Normal. No nodules. KIDNEYS AND URETERS: Normal. No hydronephrosis. STOMACH AND BOWEL: No evidence of bowel obstruction or significant ileus. PELVIS: APPENDIX: Appendix is visualized and normal in appearance. BLADDER: Normal. REPRODUCTIVE: Unremarkable as visualized. No mass. ABDOMEN and PELVIS: INTRAPERITONEAL SPACE: Normal. No ascites or other fluid collection. No free air. BONES/JOINTS: Extensive postoperative and degenerative changes of the lumbar spine. Surgical fixation of the right femoral neck. No suspicious lytic or blastic abnormality. SOFT TISSUES: Normal. No discrete abdominal or pelvic wall hernia. VASCULATURE: Normal. Abdominal aorta is non-dilated. LYMPH NODES: Normal. No enlarged lymph nodes. TUBES, LINES AND DEVICES: TIPS shunt is in place. CT/Abdomen/Pelvis without Cont IMPRESSION: 1. Right pleural effusion with compression atelectasis of the right lower lobe. 2. Liver cirrhosis. 3. No acute abdominal or pelvic abnormality. Electronically Signed: Garo Bennett MD at 17:08 EST ,
[2022-05-12 16:09] LABS: Absolute Lymphocyte Count 1.19 X10^3/uL (0.83-4.51); Absolute Neutrophil Count 3.1 X10^3/uL (2.0-7.7); Basophil# 0.04 X10^3/uL; Basophil% 0.8 % (0-1); Eosinophil# 0.19 X10^3/uL; Eosinophils% 3.7 % (0-5); Hematocrit 42.3 % (37-47); Hemoglobin 14.1 g/dL (12.0-15.0); Lymphocyte # 1.19 X10^3/ul (0.83-4.51); Lymphocyte % 23.4 % (19-41); Mean Corp Hgb Conc 33.3 g/dL (32-36); Mean Corpuscular Hgb 29.5 pg (27.0-32.0); Mean Corpuscular Volume 88.5 fL (81-99); Mean Platelet Vol. 10.1 fl (6.2-12.0); Monocyte# 0.57 X10^3/uL; Monocyte% 11.2 % (0-10); NRBC Flagged by Analyzer 0 % (0-5); Neutrophil # 3.08 X10^3/uL (2.7-7.7); Neutrophil % 60.7 % (47-70); Platelet Count 132 K/mm3 (150-450); RBC Distribution Width CV 14.6 % (11.6-14.6); RBC Distribution Width SD 46.8 fl (35.1-43.9); Red Blood Count 4.78 M/mm3 (4.2-5.4); White Blood Count 5.1 K/mm3 (4.4-11.0)
[2022-05-12 16:39] LABS: ALB/GLOB Ratio 1.1 RATIO (0.9-2.4); AST(SGOT) 24 U/L (15-37); Alanine Aminotransfer ALT/SGPT 17 U/L (13-56); Alkaline Phosphatase 115 U/L (45-117); Anion Gap 7 (5-15); BUN 12 mg/dL (7-18); BUN/Creat Ratio 23.8 RATIO (10-20); Calcium,Total 8.6 mg/dL (8.5-10.1); Chloride 111 mmol/L (98-107); EST Glomerular Filtration Rate 132 mL/min (>60); Est Glom Filt Rate - Afr Amer 160 mL/min (>60); Globulin 2.8 g/dL (2.2-4.2); Glucose 83 mg/dL (74-106); Potassium 3.7 mmol/L (3.5-5.1); Protein, Total 5.8 g/dL (6.4-8.2); Sodium Level 140 mmol/L (136-145)
[2022-05-12] MEDS: HYDROcodone Bitartrate/Apap 5/325 Tablet PO (17:23)
[2022-05-12] MEDS: Ipratropium/Albuterol Sulfate 3 ML AMPUL.NEB INHALATION (17:54)
[2022-05-12 17:56] LABS: Bacteria 0 SEEN /hpf (None Seen); Red Blood Cells-Urine 0 SEEN /hpf (0-5)
[2022-05-12 17:57] VITALS: PULSE 79; RESP 18; O2SAT 98
[2022-05-12 18:16] LABS: Color, Urine Amber (Yellow); Glucose, Dipstick Normal (Normal); Ketone-Dipstick 5 mg/dl (Negative); Leukocyte Esterase-Dipstick 25 /ul (Negative); Nitrite-Dipstick Negative (Negative); Occult Blood-Urine Negative /ul (Negative); Protein-Dipstick 15 mg/dl (Negative); Urine Bilirubin Dipstick Negative (Negative); Urine Clarity Clear (Clear); Urine Urobilinogen 1 mg/dl (Normal); Urine pH 6.5 (5.0 - 8.0)
[2022-05-12 18:31] LABS: Mucous, Urine 4+ /hpf (<or=2+)
[2022-05-12 18:32] LABS: Squamous Epithelial Cells - UA 5-10 SEEN /hpf (5-10); White Blood Cells 0-5 SEEN /hpf (0-5)
== END 2022-05-12 19:16 | disposition home or self-care (01) ==
PROVIDERS: Physician Assistant; Emergency Provider Emergency Medicine; Visit Provider Emergency Medicine
DX: M54.9 Dorsalgia, unspecified (principal); K74.60 Unspecified cirrhosis of liver; J44.9 Chronic obstructive pulmonary disease, unspecified; R10.9 Unspecified abdominal pain; J90 Pleural effusion, not elsewhere classified; F17.200 Nicotine dependence, unspecified, uncomplicated
CPT/HCPCS: 74176; 80053; 81001; 85025; 94640; 99284

== ENCOUNTER → 2022-07-07 | Outpatient (CLI) | payer MEDICAID, SELFPAY ==
[2022-07-07 12:19] LABS: Absolute Neutrophil Count 3.9 X10^3/uL (2.0-7.7); Basophil# 0.03 X10^3/uL; Basophil% 0.5 % (0-1); Eosinophil# 0.18 X10^3/uL; Eosinophils% 3.3 % (0-5); Hematocrit 39.5 % (37-47); Hemoglobin 12.8 g/dL (12.0-15.0); Lymphocyte % 18.1 % (19-41); Mean Corp Hgb Conc 32.4 g/dL (32-36); Mean Corpuscular Hgb 29.8 pg (27.0-32.0); Mean Corpuscular Volume 91.9 fL (81-99); Mean Platelet Vol. 10.9 fl (6.2-12.0); Monocyte# 0.44 X10^3/uL; NRBC Flagged by Analyzer 0 % (0-5); Neutrophil # 3.86 X10^3/uL (2.7-7.7); Neutrophil % 69.7 % (47-70); Platelet Count 129 K/mm3 (150-450); RBC Distribution Width CV 15.6 % (11.6-14.6); RBC Distribution Width SD 52.2 fl (35.1-43.9); White Blood Count 5.5 K/mm3 (4.4-11.0)
[2022-07-07 12:33] LABS: Vitamin D,25 Hydroxy 12.3 ng/mL
[2022-07-07 12:40] LABS: ALB/GLOB Ratio 1.2 RATIO (0.9-2.4); AST(SGOT) 28 U/L (15-37); Alanine Aminotransfer ALT/SGPT 20 U/L (13-56); Albumin, Serum 3.2 g/dL (3.2-5.0); Alkaline Phosphatase 189 U/L (45-117); Anion Gap 7 (5-15); BUN 15 mg/dL (7-18); BUN/Creat Ratio 29.5 RATIO (10-20); Calcium,Total 8.8 mg/dL (8.5-10.1); Chloride 114 mmol/L (98-107); Cholesterol 172 mg/dL (200); Creatinine, Serum 0.51 mg/dL (0.55-1.02); EST Glomerular Filtration Rate 131 mL/min (>60); Est Glom Filt Rate - Afr Amer 158 mL/min (>60); Globulin 2.7 g/dL (2.2-4.2); Glucose 80 mg/dL (74-106); High Density Lipoprotein 50 mg/dL; Potassium 3.9 mmol/L (3.5-5.1); Protein, Total 5.9 g/dL (6.4-8.2); Sodium Level 145 mmol/L (136-145); Triglycerides 64 mg/dL; Very Low Density Lipoprotein 13 mg/dL (5-40)
== END | disposition home or self-care (01) ==
LOC: BIMLAB 10:18
PROVIDERS: PCP Internal Medicine; Referring Provider Internal Medicine; Visit Provider Internal Medicine
DX: K74.60 Unspecified cirrhosis of liver (principal); J44.9 Chronic obstructive pulmonary disease, unspecified; E55.9 Vitamin D deficiency, unspecified; Z13.6 Encounter for screening for cardiovascular disorders
CPT/HCPCS: 36415; 80053; 80061; 82306; 85025

== ENCOUNTER → 2022-07-22 | Outpatient (CLI) | payer MEDICAID, SELFPAY ==
--- NOTE | 2022-07-22 17:43 | MRI_ITS ---
STUDY: MRI LEFT SHOULDER REASON FOR EXAM: Female, 61 years old. pain history of prior surgery TECHNIQUE: Standardized fat and water weighted pulse sequences were obtained in all 3 orthogonal planes. COMPARISON: X-ray of the left shoulder dated June 30, 2022 FINDINGS: A moderate-sized full-thickness tear is present in the anterior aspect of the supraspinatus tendon without retraction of 2.58 cm proximal to the greater tuberosity. The humeral head is high riding abutting the undersurface of the acromium as well. A small glenohumeral joint effusion is also present. The intracapsular aspect of the long head of the biceps tendon is also torn or has been surgically resected. Susceptibility artifact is seen in the proximal one third humeral shaft, either due to surgical intervention in this region or prior trauma with scarring. Normal infraspinatus tendon. There is moderate partial tearing of the superior fibers of the subscapularis tendon. Normal teres minor tendon. There is severe muscular atrophy of the supraspinatus muscle. There is mild muscular atrophy of the infraspinatus muscle. Normal subscapularis muscle. There is mild muscular atrophy of the teres minor muscle. There is a cortical erosion at the insertion of the supraspinatus tendon. There is diffuse degenerative tearing of the posterior superior aspect of the glenoid labrum. Normal capsulo- ligamentous complex. Normal rotator interval. There is mild osteoarthritis of the acromioclavicular articulation. There is a Type II morphology (curved), with a neutral orientation. There is minimal fluid distention of the subacromial bursa, consistent with mild subacromial-subdeltoid bursitis. Normal visualized coracohumeral and coracoacromial ligaments. Normal quadrilateral space. Normal axillary space. Normal deltoid muscle. Normal trapezius muscle. MRI/Upper Ext Joint Only(Routine) IMPRESSION: 1. A moderate-sized full-thickness tear is present in the anterior aspect of the supraspinatus tendon without retraction of 2.58 cm proximal to the greater tuberosity. 2. The intracapsular aspect of the long head of the biceps tendon is also torn or has been surgically resected. Susceptibility artifact is seen in the proximal one third humeral shaft, either due to surgical intervention in this region or prior trauma with scarring. 3. Moderate partial tearing of superior fibers of the subscapularis tendon 4. High-grade degenerative tear in the posterior superior aspect of the glenoid labrum. Electronically Signed: Tae Rees MD at 9:35 EST ,
== END | disposition home or self-care (01) ==
LOC: MRI 17:43
PROVIDERS: PCP Internal Medicine; Referring Provider Orthopaedic Surgery Sports Medicine; Visit Provider Orthopaedic Surgery Sports Medicine
DX: M25.512 Pain in left shoulder (principal)
CPT/HCPCS: 73221

== ENCOUNTER → 2022-07-24 | Outpatient (CLI) | payer MEDICAID, SELFPAY ==
[2022-07-24 15:01] LABS: Bacteria 0 SEEN /hpf (None Seen); Red Blood Cells-Urine 0 SEEN /hpf (0-5); White Blood Cells 0 SEEN /hpf (0-5)
[2022-07-24 15:35] LABS: Color, Urine Yellow (Yellow); Glucose, Dipstick Normal (Normal); Ketone-Dipstick 5 mg/dl (Negative); Leukocyte Esterase-Dipstick Negative /ul (Negative); Nitrite-Dipstick Negative (Negative); Occult Blood-Urine Negative /ul (Negative); Protein-Dipstick 15 mg/dl (Negative); Specific Gravity, Urine 1.015 (1.002-1.030); Urine Bilirubin Dipstick Negative (Negative); Urine Clarity Clear (Clear); Urine Urobilinogen 1 mg/dl (Normal); Urine pH 6.5 (5.0 - 8.0)
[2022-07-24 16:10] LABS: Mucous, Urine 1+ /hpf (<or=2+); Squamous Epithelial Cells - UA 5-10 SEEN /hpf (5-10)
== END | disposition home or self-care (01) ==
LOC: LABSPEC 14:55
PROVIDERS: PCP Internal Medicine; Referring Provider Physician Assistant Surgical; Visit Provider Physician Assistant Surgical
DX: R30.0 Dysuria (principal)
CPT/HCPCS: 81001; 87086; 87088

== ENCOUNTER → 2022-07-29 | Outpatient (CLI) | payer MEDICAID, SELFPAY ==
[2022-07-29 17:13] LABS: Absolute Lymphocyte Count 1.31 X10^3/uL (0.83-4.51); Absolute Neutrophil Count 4.4 X10^3/uL (2.0-7.7); Basophil# 0.05 X10^3/uL; Basophil% 0.8 % (0-1); Eosinophil# 0.26 X10^3/uL; Eosinophils% 3.9 % (0-5); Hematocrit 44.2 % (37-47); Hemoglobin 14.5 g/dL (12.0-15.0); Lymphocyte # 1.31 X10^3/ul (0.83-4.51); Lymphocyte % 19.7 % (19-41); Mean Corp Hgb Conc 32.8 g/dL (32-36); Mean Corpuscular Hgb 30.5 pg (27.0-32.0); Mean Corpuscular Volume 93.1 fL (81-99); Mean Platelet Vol. 10.2 fl (6.2-12.0); Monocyte# 0.63 X10^3/uL; Monocyte% 9.5 % (0-10); NRBC Flagged by Analyzer 0 % (0-5); Neutrophil # 4.39 X10^3/uL (2.7-7.7); Neutrophil % 65.8 % (47-70); Platelet Count 124 K/mm3 (150-450); RBC Distribution Width CV 15.9 % (11.6-14.6); RBC Distribution Width SD 54.5 fl (35.1-43.9); Red Blood Count 4.75 M/mm3 (4.2-5.4); White Blood Count 6.7 K/mm3 (4.4-11.0)
[2022-07-29 17:17] LABS: Erythrocyte Sedimentation Rate 6 mm/hr (0-30)
[2022-07-29 17:18] LABS: International Normalized Ratio 1.1; Prothrombin Time (Protime)PT. 13.4 SECONDS (11.7-14.9)
[2022-07-29 18:03] LABS: ALB/GLOB Ratio 1.2 RATIO (0.9-2.4); AST(SGOT) 27 U/L (15-37); Alanine Aminotransfer ALT/SGPT 24 U/L (13-56); Albumin, Serum 3.3 g/dL (3.2-5.0); Alkaline Phosphatase 177 U/L (45-117); Anion Gap 5 (5-15); BUN 16 mg/dL (7-18); BUN/Creat Ratio 28.7 RATIO (10-20); CRP < 2.90 mg/L (0.0-3.0); Chloride 113 mmol/L (98-107); Creatinine, Serum 0.56 mg/dL (0.55-1.02); EST Glomerular Filtration Rate 118 mL/min (>60); Est Glom Filt Rate - Afr Amer 142 mL/min (>60); Globulin 2.8 g/dL (2.2-4.2); Glucose 90 mg/dL (74-106); LDH 263 U/L (84-246); Potassium 4.3 mmol/L (3.5-5.1); Protein, Total 6.1 g/dL (6.4-8.2); Sodium Level 141 mmol/L (136-145)
== END | disposition home or self-care (01) ==
LOC: LAB 16:35
PROVIDERS: PCP Internal Medicine; Referring Provider Internal Medicine Gastroenterology; Visit Provider Internal Medicine Gastroenterology
DX: K74.60 Unspecified cirrhosis of liver (principal)
CPT/HCPCS: 36415; 80053; 82140; 83615; 85025; 85610; 85652; 86140

== ENCOUNTER → 2022-09-03 | Outpatient (CLI) | payer MEDICAID, SELFPAY ==
[2022-09-03 15:37] LABS: Vitamin D,25 Hydroxy 40.8 ng/mL
[2022-09-03 16:09] LABS: Amphetamine Urine VISTA NEGATIVE (<1000 ng/mL); Barbiturate Urine VISTA NEGATIVE (< 200 ng/mL); Benzodiazepine Urine VISTA NEGATIVE (< 200 ng/mL); Cocaine Urine VISTA NEGATIVE (< 300 ng/mL); Ecstacy Urine VISTA NEGATIVE (< 500 ng/mL); Methadone Urine VISTA NEGATIVE (< 300 ng/mL); PCP Urine VISTA NEGATIVE (< 25 ng/mL); THC Urine VISTA NEGATIVE (< 50 ng/mL); Vista UDS pH Range 5
== END | disposition home or self-care (01) ==
LOC: LAB 14:58
PROVIDERS: PCP Internal Medicine; Referring Provider Anesthesiology Pain Medicine; Visit Provider Anesthesiology Pain Medicine
DX: F11.20 Opioid dependence, uncomplicated (principal); E55.9 Vitamin D deficiency, unspecified
CPT/HCPCS: 36415; 80307; 82306

== ENCOUNTER 2022-12-07 17:11 | Emergency (ER) | payer MEDICAID, SELFPAY ==
[2022-12-07 17:12] VITALS: BP 166/60; PULSE 111; RESP 33; TEMP 36.2; O2SAT 95; BMI 24.5
[2022-12-07] MEDS: Ipratropium/Albuterol Sulfate 3 ML AMPUL.NEB INHALATION (17:48)
[2022-12-07 17:51] VITALS: PULSE 100; RESP 18
[2022-12-07] MEDS: Albuterol 2.5 MG/3 ML VIAL.NEB. INHALATION ×3 (17:55)
--- NOTE | 2022-12-07 18:08 | ED.RN ---
PATIENT REFUSED PREDNISONE. PT STATES SHE WANTS A SNACK. PT STATES SHE WANTS HER HIP X RAYED. DR. ASKEW MADE AWARE
[2022-12-07 18:09] LABS: Absolute Lymphocyte Count 1.41 X10^3/uL (0.83-4.51); Absolute Neutrophil Count 6.9 X10^3/uL (2.0-7.7); Anion Gap 6 (5-15); BUN 13 mg/dL (7-18); BUN/Creat Ratio 26.5 RATIO (10-20); Basophil# 0.04 X10^3/uL; Basophil% 0.4 % (0-1); Calcium,Total 8.6 mg/dL (8.5-10.1); Chloride 114 mmol/L (98-107); Creatinine, Serum 0.49 mg/dL (0.55-1.02); EST Glomerular Filtration Rate 136 mL/min (>60); Est Glom Filt Rate - Afr Amer 165 mL/min (>60); Estimated Creatinine Clearance 121.62 ml/min; Glucose 91 mg/dL (74-106); Hematocrit 40.7 % (37-47); Hemoglobin 13.8 g/dL (12.0-15.0); Lymphocyte # 1.41 X10^3/ul (0.83-4.51); Lymphocyte % 14.7 % (19-41); Mean Corp Hgb Conc 33.9 g/dL (32-36); Mean Corpuscular Hgb 32.2 pg (27.0-32.0); Mean Corpuscular Volume 95.1 fL (81-99); Monocyte# 1.05 X10^3/uL; NRBC Flagged by Analyzer 0 % (0-5); Neutrophil # 6.94 X10^3/uL (2.7-7.7); Neutrophil % 72.6 % (47-70); POSITIVE COUNT YES; Platelet Count 98 K/mm3 (150-450); Potassium 3.7 mmol/L (3.5-5.1); RBC Distribution Width CV 13.5 % (11.6-14.6); Red Blood Count 4.28 M/mm3 (4.2-5.4); Sodium Level 140 mmol/L (136-145); White Blood Count 9.6 K/mm3 (4.4-11.0)
--- NOTE | 2022-12-07 18:31 | ED.VIS.DYS ---
HPI History of Present Illness Chief Complaint: Shortness of Breath Detail of Chief Complaint: Shortness of breath, wheezing and falling Informant: patient Onset/Context/Timing Onset: Days (With respect to the respiratory symptoms) and Weeks (SeveralSeveral times over the past weeks.) Context: sudden (Patient states she suddenly falls. She cannot recall what she was doing yesterday when she fell. She, however, denies head trauma or loss of consciousness.) and gradual (Shortness of breath has gotten worse over the past couple of days with a cough that is nonproductive. She does have history of COPD.) Timing: Continuous (With respect to the respiratory symptoms), Intermittent (With respect to falls) and Waxes and wanes Quality: Positive for Dyspnea on exertion and Wheezing; Negative for Orthopnea or PND Current Severity: Mild Maximum Severity: Moderate Worsened by: Exertion and Coughing; Not Worsened By Lying flat Relieved by: Nothing Associated Symptoms cough, rhinorrhea, post nasal drip and sore throat; Negative for ear pain, fever, subjective, chills, sweats, clear sputum, white sputum, yellow sputum or green sputum Chest Pain: Positive for None Narrative Narrative: Patient is 62-year-old woman who started smoking at age 28. She states she only smokes 1 cigarette/week. 5 years ago she smoked half pack per day and 10 years ago she smoked a pack a day. She denies history of PE or DVT. She has been tested several times in the past because of elevated D-dimer. She denies fever or chills. She does endorse rhinorrhea, congestion, postnasal drainage and sore throat. She denies GI symptoms. She denies urologic symptoms. She denies neurologic symptoms. She does not recall tripping on anything when she fell. She she informing that she is concerned because she is falling because 1 year ago she broke her hip. She has been able to ambulate since the falls she does not complain of hip pain and specifically does not complain of pain in the inguinal area. PE Risk Factors: Negative for Cancer, OCP + Smoking + > 35, Prior DVT or PE, Recent immobilization, Recent surgery or Recent travel Prior similar symptoms: Yes (COPD) Recent Illness/Hospitalization: No [facility] Medical History Anxiety and depression Atopic dermatitis Back pain Breast lump Cirrhosis of liver Closed subcapital fracture of neck of right femur COPD (chronic obstructive pulmonary disease) Cystitis Degenerative arthritis Fall at home H pylori ulcer Heroin addiction History of alcoholism History of hepatitis C History of illicit drug use Hyperlipidemia Impetigo Injury of head and neck Left rotator cuff tear arthropathy Left shoulder pain Neuropathy Oral candidiasis Pleural effusion on right Restless legs Seasonal allergies Thrombocytopenia Tobacco dependence due to cigarettes Vision problems Vitamin D deficiency Home Medications pantoprazole 40 mg tablet,delayed release (Protonix) 40 mg PO DAILY 06/30/22 [History Last Taken Unknown] albuterol sulfate 90 mcg/actuation breath activated powder inhaler 2 inh inhalation Q6H PRN shortness of breath or wheezing #1 ea 07/07/22 [Rx Last Taken Unknown] linaclotide 290 mcg capsule (Linzess) 290 mcg PO DAILY #30 caps 07/29/22 [Rx Last Taken Unknown] hydrocodone-acetaminophen 5-325mg 5mg-325mg 1 tab PO 08/03/22 [History Last Taken Unknown] ondansetron 4 mg disintegrating tablet 4 mg translingual 08/03/22 [History Last Taken Unknown] Allergy/AdvReac Type Severity Reaction Status Date / Time trazodone Allergy Mild leg cramps Verified 12/07/22 17:21 naproxen [From Naprosyn] AdvReac Upset Verified 12/07/22 17:21 Stomach tramadol AdvReac Itching Verified 12/07/22 17:21 Family History Mother FH: mental illness HLD (hyperlipidemia) Thyroid disorder Aunt No problems noted. Grandmother Heart disease Myocardial infarction Aunt Diabetes HLD (hyperlipidemia) Hypertension Grandfather COPD (chronic obstructive pulmonary disease) Sister Skin cancer Other Anxiety Arthritis Surgical History Cervical vertebral fusion H/O colonoscopy H/O: hysterectomy History of back surgery History of back surgery History of breast biopsy History of D&C History of esophagogastroduodenoscopy (EGD) History of open reduction and internal fixation (ORIF) procedure S/P cholecystectomy S/P shoulder surgery S/P TIPS (transjugular intrahepatic portosystemic shunt) Status post lumbar surgery Social History adopted: No household members: other details: Her granddaughter lives with her (17 years old). She has custody X 11 year housing: apartment number of children: 3 current occupational status: unemployed Smoking Status: Current some day smoker tobacco type: cigarettes Tobacco: How many years used: 32 Electronic Cigarette Use: not used how long ago did patient quit smoking: started smoking at age 28 and smoked 1/2- 1.5 PPD....she is still smoking alcohol intake: former substance use type: former substance user do you feel safe at home: Yes ROS ROS ED Constitutional Constitutional ED: Denies chills, fever(s), sweats or weight loss Eyes Eyes: Denies blurry vision, change in vision or diplopia ENT ENT ED: Reports rhinorrhea and sore throat; Denies ear pain Cardiovascular Cardiovascular: Denies chest pain, orthopnea, palpitations, paroxysmal nocturnal dyspnea or racing heartbeat Respiratory/Chest Respiratory/Chest: Reports cough, dyspnea and dyspnea on exertion; Denies orthopnea, paroxysmal nocturnal dyspnea or sputum Gastrointestinal Gastrointestinal: Denies abdominal pain, diarrhea, melena, nausea or vomiting Genitourinary Genitourinary ED: Denies dysuria or hematuria Musculoskeletal Musculoskeletal: Denies arthralgias, back pain, myalgias or neck pain Integumentary Denies abscess, Abrasions or rash Neurologic Neurologic: Denies headache(s) or paresthesias Psychiatric Psychiatric: Reports anxiety; Denies depression Endocrine Endocrinology: Denies cold intolerance or heat intolerance Hematologic/Lymphatic Hematologic/Lymphatic: Denies easy bleeding or easy bruising Allergic/Immunologic Allergic/Immunologic ED: Denies mouth swelling or tongue swelling EXAM Physical Exam Const Vital Signs: 12/07/22 17:12 12/07/22 17:16 12/07/22 17:51 Temperature 97.2 F L Temperature Source Temporal Pulse Rate 111 H 100 Respiratory Rate 33 H 18 Respiratory Effort Short of Breath Respiratory Pattern Tachypnea Normal Blood Pressure 166/60 H Blood Pressure Mean 95 Pulse Ox 95 Oxygen Delivery Method Room Air Positive well nourished and well developed General Appearance ED: well developed and NAD; Negative for pallor HEENT Reports moist mucous membranes HEENT Narrative: Nares patent. No septal deviation hematoma. Posterior pharynx is normal. atraumatic and trauma Eyes PERRL and EOMs intact bilaterally General Eye ED: Negative for pale conjunctiva or scleral icterus Neck no lymphadenopathy, supple, no meningeal signs and no JVD Resp normal respiratory effort and No clear to auscultation bilaterally Auscultation: wheezes expiratory wheezes, scattered wheezes and throughout Cardio regular rate, regular rhythm, S1 normal heart sound, S2 normal heart sound and no murmurs GI non-tender, non-distended and no masses Back/Spine no CVA tenderness Extremity normal to inspection Extremity Narrative: There is no asymmetry, swelling, discoloration, leg vein distention, palpable cords or tenderness along the distribution of the deep venous system. General Extremety ED: Negative for edema or tenderness General Extremity: Negative for edema Neuro oriented x3, CN's II-XII intact bilaterally and no sensory deficits noted Oleg Coma Scale: document GCS findings Spontaneous Obeys Commands Oriented 15 Sensorium / Orientation: alert Psych Mood & Affect: anxious Skin no wounds and skin turgor normal General Skin Exam: Negative for jaundice or pallor MDM MDM MDM Narrative Medical decision making narrative: Patient's history is consistent with exacerbation of COPD. Will obtain CBC to assess white count differential and rule out anemia. Clinically she does not appear anemic. Chest x-ray to rule out pneumonia and pneumothorax. Clinically there is no concern for PE and Wells score for DVT is -2. Patient was treated with DuoNeb and albuterol. Patient refused to take the prednisone until she received a meal. Lab Data Labs: Laboratory Results - last 24 hr 12/07/22 17:20 WBC 9.6 RBC 4.28 Hgb 13.8 Hct 40.7 MCV 95.1 MCH 32.2 H MCHC 33.9 RDW Std Deviation 47.0 H RDW Coeff of Heath 13.5 Plt Count 98 L MPV 11.0 Immature Gran % (Auto) 0.300 Neut % (Auto) 72.6 H Lymph % (Auto) 14.7 L [place] % (Auto) 11.0 H Eos % (Auto) 1.0 Baso % (Auto) 0.4 Absolute Neuts (auto) 6.9 Absolute Lymphs (auto) 1.41 Nucleated RBC % 0 Sodium 140 Potassium 3.7 Chloride 114 H Carbon Dioxide 20.0 L Anion Gap 6 BUN 13 Creatinine 0.49 L Estim Creat Clear Calc 121.62 Est GFR (MDRD) Af Amer 165 Est GFR (MDRD) Non-Af 136 BUN/Creatinine Ratio 26.5 H Glucose 91 Calcium 8.6 Radiography Diagnostic Testing: Patient left prior to x-ray order completion. She did not stay and allow me to talk to her and explained risk benefits of not having an x-ray. Discharge Plan Triage Chief Complaint: Shortness of Breath ED Provider: Chintan Hsieh Dx/Rx/DC Orders Clinical Impression: Acute exacerbation of COPD with asthma, Cirrhosis of liver, Acute bronchospasm, Tobacco use Instructions: ED COPD Flare Prescriptions: No Action pantoprazole [Protonix] 40 mg tablet,delayed release (DR/EC) 40 mg PO DAILY albuterol sulfate 90 mcg/actuation aerosol powdr breath activated 2 inh inhalation Q6H PRN (Reason: shortness of breath or wheezing) Qty: 1 0RF Linzess 290 mcg capsule 290 mcg PO DAILY Qty: 30 0RF hydrocodone-acetaminophen 5-325 mg tablet 1 tab PO Patient Comments: take 1 tablet by mouth twice a day for 7 days ondansetron 4 mg tablet,disintegrating 4 mg translingual Patient Comments: dissolve 1 tablet ON TONGUE every 8 hours if needed for nausea OR vomiting Primary Care Provider: Opal Reveles Referrals: Opal Reveles MD [Primary Care Provider] - Disposition Disposition: Home, Self Care
--- NOTE | 2022-12-07 19:31 | ED.RN ---
RN walked into room for assessment. Pt stated she wanted to leave. RN told pt it would be beneficial for pt to stay and talk to doctor about test results. Pt explained she did not want to wait. Pt stated, I'm cold and hungry and I just want to lay on my couch. Rn discussed pt wishes with Dr. Hsieh. Pt did not want to wait for d/c paperwork. IV removed, pt left in wheelchair with granddaughter.
[2022-12-07 19:33] VITALS: PULSE 87; O2SAT 96
== END 2022-12-07 19:35 | disposition home or self-care (01) ==
PROVIDERS: Emergency Provider Emergency Medicine; PCP Internal Medicine; Referring Provider Internal Medicine; Visit Provider Emergency Medicine
DX: J44.1 Chronic obstructive pulmonary disease with (acute) exacerbation (principal); K74.60 Unspecified cirrhosis of liver; F17.210 Nicotine dependence, cigarettes, uncomplicated; E78.5 Hyperlipidemia, unspecified; Z90.710 Acquired absence of both cervix and uterus; Z90.49 Acquired absence of other specified parts of digestive tract; J98.01 Acute bronchospasm
CPT/HCPCS: 80048; 85025; 93005; 94640; 99285; A4216

== ENCOUNTER 2023-02-27 16:22 | Emergency (ER) | payer MEDICAID, SELFPAY ==
[2023-02-27 16:23] VITALS: BP 140/86; PULSE 126; RESP 18; TEMP 36.3; O2SAT 97
--- NOTE | 2023-02-27 16:33 | EX.ED.DYSGE1 ---
HPI History of Present Illness Chief Complaint: Cough Narrative Narrative: Patient presents with a cough which is relatively chronic. She has a history of COPD, 3 weeks ago she developed COVID and soon after developed a cough that has not gone away. She has no shortness of breath. No chest pain or pleuritic component. She has a history of chronic tachycardia. Last outpatient appointment she tells me her heart rate was in the 140s. [facility] Medical History Anxiety and depression Atopic dermatitis Back pain Breast lump Cirrhosis of liver Closed subcapital fracture of neck of right femur COPD (chronic obstructive pulmonary disease) Cystitis Degenerative arthritis Fall at home H pylori ulcer Heroin addiction History of alcoholism History of hepatitis C History of illicit drug use Hyperlipidemia Impetigo Injury of head and neck Left rotator cuff tear arthropathy Left shoulder pain Neuropathy Oral candidiasis Pleural effusion on right Restless legs Seasonal allergies Thrombocytopenia Tobacco dependence due to cigarettes Vision problems Vitamin D deficiency Home Medications pantoprazole 40 mg tablet,delayed release (Protonix) 40 mg PO DAILY 06/30/22 [History Last Taken Unknown] albuterol sulfate 90 mcg/actuation breath activated powder inhaler 2 inh inhalation Q6H PRN shortness of breath or wheezing #1 ea 07/07/22 [Rx Last Taken Unknown] linaclotide 290 mcg capsule (Linzess) 290 mcg PO DAILY #30 caps 07/29/22 [Rx Last Taken Unknown] hydrocodone-acetaminophen 5-325mg 5mg-325mg 1 tab PO 08/03/22 [History Last Taken Unknown] ondansetron 4 mg disintegrating tablet 4 mg translingual 08/03/22 [History Last Taken Unknown] hydrocodone-homatropine 5 mg-1.5 mg/5 mL oral syrup (Hydromet) 5 ml PO Q6H 3 days #60 mL 02/27/23 [Rx Last Taken Unknown] Allergy/AdvReac Type Severity Reaction Status Date / Time trazodone Allergy Mild leg cramps Verified 02/27/23 16:25 naproxen [From Naprosyn] AdvReac Upset Verified 02/27/23 16:25 Stomach tramadol AdvReac Itching Verified 02/27/23 16:25 Family History Mother FH: mental illness HLD (hyperlipidemia) Thyroid disorder Aunt No problems noted. Grandmother Heart disease Myocardial infarction Aunt Diabetes HLD (hyperlipidemia) Hypertension Grandfather COPD (chronic obstructive pulmonary disease) Sister Skin cancer Other Anxiety Arthritis Surgical History Cervical vertebral fusion H/O colonoscopy H/O: hysterectomy History of back surgery History of back surgery History of breast biopsy History of D&C History of esophagogastroduodenoscopy (EGD) History of open reduction and internal fixation (ORIF) procedure S/P cholecystectomy S/P shoulder surgery S/P TIPS (transjugular intrahepatic portosystemic shunt) Status post lumbar surgery Social History adopted: No household members: other details: Her granddaughter lives with her (17 years old). She has custody X 11 year housing: apartment number of children: 3 current occupational status: unemployed Smoking Status: Former smoker Tobacco: How many years used: 32 Electronic Cigarette Use: not used how long ago did patient quit smoking: started smoking at age 28 and smoked 1/2- 1.5 PPD....she is still smoking alcohol intake: former substance use type: former substance user do you feel safe at home: Yes ROS ROS ED ROS Narrative Past medical history: Reviewed Medications: Reviewed Social history: Noncontributory Review of systems: All systems negative except as indicated General: No fever Eyes: No visual changes ENT: No upper airway congestion, normal voice Neck: No neck pain Cardiovascular: No chest pain Respiratory: Chronic cough Gastrointestinal: No abdominal pain, nausea vomiting or diarrhea Genitourinary: No dysuria Musculoskeletal: Denies myalgias no difficulty with ambulation Skin: No rash Neurological: No memory loss, confusion or any focal weakness Psych: No recent behavioral changes Hematologic: No easy bleeding or easy bruising EXAM Physical Exam Narrative Exam Narrative: Physical exam General: Well nourished, Well developed, No Acute Distress Head: Normocephalic, Atraumatic Eyes: Conjunctiva not pale ENT: Moist mucous membranes Neck: Supple, Nontender, No lymphadenopathy Cardiovascular: Regular tachycardia. No obvious murmur Respiratory: No distress, CTA bilaterally Abdomen: Soft, Nontender, Nondistended Back: Nontender, Normal Inspection. Negative for: CVA tenderness Extremities: Nontender, No edema Skin: Normal color, No rash Neurological: Alert, Normal Strength, Normal Sensation Psychological: Normal affect Const Vital Signs: 02/27/23 16:23 02/27/23 16:40 02/27/23 17:05 Temperature 97.4 F L Temperature Source Temporal Pulse Rate 126 H 88 Respiratory Rate 18 20 H Respiratory Effort Normal Non-Labored Respiratory Depth Normal Respiratory Pattern Normal Normal Blood Pressure 140/86 H Blood Pressure Mean 104 Pulse Ox 97 Oxygen Delivery Method Room Air Room Air MDM MDM MDM Narrative Medical decision making narrative: Patient has an unremarkable work-up in the ED, her main problem is her cough, I will discharge her in stable condition with cough medication and an inhaler. Otherwise she appears well heart rate is now in the 80s and improved on its own. I am not worried about cardiac etiology of not worried about pneumonia or PE at this time. I will discharge in stable condition she does not meet admission criteria Lab Data Labs: Laboratory Results - last 24 hr 02/27/23 16:56 WBC 9.7 RBC 4.50 Hgb 14.3 Hct 42.2 MCV 93.8 MCH 31.8 MCHC 33.9 RDW Std Deviation 47.9 H RDW Coeff of Heath 14.1 Plt Count 161 MPV 9.7 Immature Gran % (Auto) 0.300 Neut % (Auto) 76.5 H Lymph % (Auto) 11.9 L [place] % (Auto) 9.7 Eos % (Auto) 1.0 Baso % (Auto) 0.6 Absolute Neuts (auto) 7.5 Absolute Lymphs (auto) 1.16 Nucleated RBC % 0 Sodium 140 Potassium 3.7 Chloride 113 H Carbon Dioxide 22.0 Anion Gap 5 BUN 15 Creatinine 0.53 L Est GFR (MDRD) Af Amer 151 Est GFR (MDRD) Non-Af 125 BUN/Creatinine Ratio 28.4 H Glucose 110 H Calcium 8.4 L Total Bilirubin 2.10 H AST 18 ALT 16 Alkaline Phosphatase 109 Total Protein 5.7 L Albumin 2.7 L Globulin 3.0 Albumin/Globulin Ratio 0.9 Radiography Diagnostic Testing: Clinical Impression(s) from Imaging Studies Chest X-Ray 02/27/23 16:57 IMPRESSION: No acute findings. Chronic fibrotic changes in the right lung base. Electronically Signed: Betty Martinez MD at 18:23 EDT Reading Location ID and State: [id number] / Tel , Service support , Chest x-ray read by me as normal Discharge Plan Triage Chief Complaint: Cough ED Provider: Ricardo Acevedo Dx/Rx/DC Orders Clinical Impression: History of COVID-19, Cough, COPD (chronic obstructive pulmonary disease) Instructions: ED Bronchitis, No Antibiotic (Adult) Prescriptions: New hydrocodone-homatropine [Hydromet] 5-1.5 mg/5 mL syrup 5 ml PO Q6H 3 Days Qty: 60 0RF No Action pantoprazole [Protonix] 40 mg tablet,delayed release (DR/EC) 40 mg PO DAILY albuterol sulfate 90 mcg/actuation aerosol powdr breath activated 2 inh inhalation Q6H PRN (Reason: shortness of breath or wheezing) Qty: 1 0RF Linzess 290 mcg capsule 290 mcg PO DAILY Qty: 30 0RF hydrocodone-acetaminophen 5-325 mg tablet 1 tab PO Patient Comments: take 1 tablet by mouth twice a day for 7 days ondansetron 4 mg tablet,disintegrating 4 mg translingual Patient Comments: dissolve 1 tablet ON TONGUE every 8 hours if needed for nausea OR vomiting Primary Care Provider: Opal Reveles Referrals: Opal Reveles MD [Primary Care Provider] - 3-5 Days
--- NOTE | 2023-02-27 16:35 | EKG12_ITS ---
Test Reason : Blood Pressure : / mmHG Vent. Rate : 115 BPM Atrial Rate : 115 BPM P-R Int : 128 ms QRS Dur : 074 ms QT Int : 318 ms P-R-T Axes : 077 081 074 degrees QTc Int : 439 [address] abnormality Abnormal ECG Confirmed by MICHAEL RAZO, MAEGAN ([id number]), editor in chief FERNIE PHILLIP ([id number]) on 03/02/2023 7:43:03 AM Referred By: Confirmed By:MAEGAN RODRIGUEZ MD
--- NOTE | 2023-02-27 16:57 | RAD_ITS ---
INDICATION: cough EXAMINATION/TECHNIQUE: X-RAY - XR Chest 2 Views COMPARISON: 2:42 PM. 01/20/2022. FINDINGS: LINES/DEVICES: None. LUNGS: No vascular congestion or acute pulmonary inflammatory change. Chronic blunting of the right costophrenic angle with chronic fibrotic changes in the right lung base. MEDIASTINUM AND CARDIOVASCULAR STRUCTURES: Cardiac silhouette not enlarged. Central airways and mediastinal contour are unremarkable. BONES AND SOFT TISSUES: Unremarkable. RAD/Chest PA and Lateral IMPRESSION: No acute findings. Chronic fibrotic changes in the right lung base. Electronically Signed: Betty Martinez MD at 18:23 EDT Reading Location ID and State: [id number] / Tel , Service support ,
[2023-02-27 17:05] VITALS: PULSE 88; RESP 20
[2023-02-27 17:05] LABS: Absolute Lymphocyte Count 1.16 X10^3/uL (0.83-4.51); Absolute Neutrophil Count 7.5 X10^3/uL (2.0-7.7); Basophil# 0.06 X10^3/uL; Basophil% 0.6 % (0-1); Hematocrit 42.2 % (37-47); Hemoglobin 14.3 g/dL (12.0-15.0); Lymphocyte # 1.16 X10^3/ul (0.83-4.51); Lymphocyte % 11.9 % (19-41); Mean Corp Hgb Conc 33.9 g/dL (32-36); Mean Corpuscular Hgb 31.8 pg (27.0-32.0); Mean Corpuscular Volume 93.8 fL (81-99); Mean Platelet Vol. 9.7 fl (6.2-12.0); Monocyte# 0.94 X10^3/uL; Monocyte% 9.7 % (0-10); NRBC Flagged by Analyzer 0 % (0-5); Neutrophil # 7.45 X10^3/uL (2.7-7.7); Neutrophil % 76.5 % (47-70); Platelet Count 161 K/mm3 (150-450); RBC Distribution Width CV 14.1 % (11.6-14.6); RBC Distribution Width SD 47.9 fl (35.1-43.9); White Blood Count 9.7 K/mm3 (4.4-11.0)
[2023-02-27] MEDS: Albuterol 2.5 MG/3 ML VIAL.NEB. INHALATION (17:05)
[2023-02-27 17:24] LABS: ALB/GLOB Ratio 0.9 RATIO (0.9-2.4); AST(SGOT) 18 U/L (15-37); Alanine Aminotransfer ALT/SGPT 16 U/L (13-56); Albumin, Serum 2.7 g/dL (3.2-5.0); Alkaline Phosphatase 109 U/L (45-117); Anion Gap 5 (5-15); BUN 15 mg/dL (7-18); BUN/Creat Ratio 28.4 RATIO (10-20); Calcium,Total 8.4 mg/dL (8.5-10.1); Chloride 113 mmol/L (98-107); Creatinine, Serum 0.53 mg/dL (0.55-1.02); EST Glomerular Filtration Rate 125 mL/min (>60); Est Glom Filt Rate - Afr Amer 151 mL/min (>60); Glucose 110 mg/dL (74-106); Potassium 3.7 mmol/L (3.5-5.1); Protein, Total 5.7 g/dL (6.4-8.2); Sodium Level 140 mmol/L (136-145)
[2023-02-27 18:22] VITALS: RESP 18
== END 2023-02-27 18:46 | disposition home or self-care (01) ==
PROVIDERS: Emergency Provider Emergency Medicine; PCP Internal Medicine; Visit Provider Emergency Medicine
DX: R05.9 Cough, unspecified (principal); J44.9 Chronic obstructive pulmonary disease, unspecified; F17.210 Nicotine dependence, cigarettes, uncomplicated; E78.5 Hyperlipidemia, unspecified; Z79.899 Other long term (current) drug therapy; Z90.710 Acquired absence of both cervix and uterus; Z90.49 Acquired absence of other specified parts of digestive tract; Z86.16 Personal history of COVID-19
CPT/HCPCS: 71046; 80053; 85025; 93005; 94640; 99282

== ENCOUNTER 2023-06-28 18:44 | Emergency (ER) | payer MEDICAID, SELFPAY ==
[2023-06-28 18:45] VITALS: BP 172/83; PULSE 116; RESP 20; TEMP 36; O2SAT 100; BMI 22.5
--- NOTE | 2023-06-28 19:17 | ED.VIS.BACK ---
HPI History of Present Illness Chief Complaint: Back Informant: patient Narrative Narrative: Patient presents with back pain and neurologic symptoms. Patient states that 8 days ago she got up from a sitting position and had a sudden sharp pain. She states she has had discs before and knows that she blew a disc. She states it is her L4-L5 disc. The pain is mostly on the right. But she has had pain going down both legs. She states she has chronic numbness of both feet from prior nerve injury and that is unchanged but she has new pain and a little bit of numb feeling going down the anterior surface of both thighs but states it does go below the knees. She denies inguinal numbness. She does know that she has to move her bowels. But she states she has gotten up and about 3 to or 4 times in the last 8 days she has had passage of stool before getting to the bathroom. She knew she had to go and she was heading to the bathroom but she could not stop it. She has had the same problem with urination. Where she knows she needs to urinate but leaks prior to getting to the bathroom. These are both new problems that she has not had before. She is not having fevers or chills. No burning with urination. Patient has had problems with her back since her 20s when she hurt her back at work. She has had a total of 7 surgeries. She started off with laminectomies. She had fusions. She had placement of hardware. About 5 years ago she had removal of hardware that had broken. She has had MRIs before but does not member when the last one was. She is set to have an MRI somewhere in the future. She sees Dr. Uday Reddy up in [place] and called him and he referred her for acute evaluation. She was seen up in [place] in the last week. It sounds like she was at the [facility] because she wanted Dr. Reddy to know she was having issues. They prescribed a Medrol Dosepak about 1 week ago. But she just filled it and has not yet started it. She has not had fevers or chills. [facility] Medical History Anxiety and depression Atopic dermatitis Back pain Breast lump Cirrhosis of liver Closed subcapital fracture of neck of right femur COPD (chronic obstructive pulmonary disease) Cystitis Degenerative arthritis Fall at home H pylori ulcer Heroin addiction History of alcoholism History of hepatitis C History of illicit drug use Hyperlipidemia Impetigo Injury of head and neck Left rotator cuff tear arthropathy Left shoulder pain Neuropathy Oral candidiasis Pleural effusion on right Restless legs Seasonal allergies Thrombocytopenia Tobacco dependence due to cigarettes Vision problems Vitamin D deficiency Home Medications pantoprazole 40 mg tablet,delayed release (Protonix) 40 mg PO DAILY 06/30/22 [History Last Taken Unknown] albuterol sulfate 90 mcg/actuation breath activated powder inhaler 2 inh inhalation Q6H PRN shortness of breath or wheezing #1 ea 07/07/22 [Rx Last Taken Unknown] linaclotide 290 mcg capsule (Linzess) 290 mcg PO DAILY #30 caps 07/29/22 [Rx Last Taken Unknown] hydrocodone-acetaminophen 5-325mg 5mg-325mg 1 tab PO 08/03/22 [History Last Taken Unknown] ondansetron 4 mg disintegrating tablet 4 mg translingual 08/03/22 [History Last Taken Unknown] hydrocodone-homatropine 5 mg-1.5 mg/5 mL oral syrup (Hydromet) 5 ml PO Q6H 3 days #60 mL 02/27/23 [Rx Last Taken Unknown] Allergy/AdvReac Type Severity Reaction Status Date / Time trazodone Allergy Mild leg cramps Verified 02/27/23 16:25 naproxen [From Naprosyn] AdvReac Upset Verified 02/27/23 16:25 Stomach tramadol AdvReac Itching Verified 02/27/23 16:25 Family History Mother FH: mental illness HLD (hyperlipidemia) Thyroid disorder Aunt No problems noted. Grandmother Heart disease Myocardial infarction Aunt Diabetes HLD (hyperlipidemia) Hypertension Grandfather COPD (chronic obstructive pulmonary disease) Sister Skin cancer Other Anxiety Arthritis Surgical History Cervical vertebral fusion H/O colonoscopy H/O: hysterectomy History of back surgery History of back surgery History of breast biopsy History of D&C History of esophagogastroduodenoscopy (EGD) History of open reduction and internal fixation (ORIF) procedure S/P cholecystectomy S/P shoulder surgery S/P TIPS (transjugular intrahepatic portosystemic shunt) Status post lumbar surgery Social History adopted: No household members: other details: Her granddaughter lives with her (17 years old). She has custody X 11 year housing: apartment number of children: 3 current occupational status: unemployed Smoking Status: Light Smoker (<10/day) Tobacco: How many years used: 32 Electronic Cigarette Use: not used how long ago did patient quit smoking: started smoking at age 28 and smoked 1/2- 1.5 PPD....she is still smoking alcohol intake: former substance use type: former substance user do you feel safe at home: Yes ROS ROS ED Constitutional Constitutional ED: Denies chills or fever(s) Eyes Eyes: Denies change in vision ENT ENT ED: Denies rhinorrhea Cardiovascular Cardiovascular: Denies chest pain Respiratory/Chest Respiratory/Chest: Denies dyspnea Gastrointestinal Gastrointestinal: Reports other Details: About 4 episodes of stool incontinence. See history of present illness. ; Denies abdominal pain, nausea or vomiting Genitourinary Genitourinary ED: Reports other Details: Several episodes of urinary incontinence. See history of present illness. ; Denies dysuria or hematuria Musculoskeletal Musculoskeletal: Reports back pain Integumentary Denies abscess, Abrasions or rash Neurologic Neurologic: Reports paresthesias; Denies headache(s) Allergic/Immunologic Allergic/Immunologic ED: Denies urticaria EXAM Physical Exam Narrative Exam Narrative: CONSTITUTIONAL: Patient is nontoxic in appearance. The patient looks comfortable. Work of breathing looks normal. HEENT: No notable trauma. Mucous membranes moist. EYES: No conjunctival injection. No pallor. NECK: No meningismus. No JVD. CARDIOVASCULAR: Regular rate at this time. She was evidently tachycardic with first heart rate check.. Regular rhythm. No notable murmur. No JVD. RESPIRATORY: No respiratory distress. Breathing is unlabored. No wheezes. No rhonchi. No rales. No pain with a deep breath. GASTROINTESTINAL: Not distended. Bowel sounds are normal. No tenderness. No guarding. No rebound. No palpable mass. No bruit. GENITOURINARY: No tenderness over the bladder. No CVA tenderness. MUSCULOSKELETAL: Patient has right paraspinal tenderness. She has +1 bilateral patellar reflexes. Patient is fully dressed and tight pants and boots up to her mid calf. These will be removed so I can get a complete exam NEUROLOGICAL: Patient is alert and oriented. More detailed neuro exam will be done after complete exam is able to be done. SKIN: No noted rashes. No diaphoresis. No vesicles noted. No notable pallor. PSYCHIATRIC: Patient is calm. Mood is appropriate. Patient had no rashes on her lower extremities. No gross weakness. She can pull up on toes step down on the feet with good plantar and dorsiflexion. She can extend her lower legs well and equally. This does cause some back pain but there is no gross weakness. No gross sensory changes either. Bilateral patellar reflexes are 1+ and bilateral Achilles are 1+. I did not have a senior behavioral scientist. But the patient states if she touches her self near the anus or in the inguinal region it feels normal. She states sometimes over the last week it is felt a little bit abnormal. 1 time it was totally numb but that predates 8 days ago. So there is no apparent inguinal numbness. Const Vital Signs: 06/28/23 18:45 Temperature 96.8 F L Temperature Source Temporal Pulse Rate 116 H Respiratory Rate 20 H Blood Pressure 172/83 H Blood Pressure Mean 112 Pulse Ox 100 Oxygen Delivery Method Room Air MDM MDM MDM Narrative Medical decision making narrative: Patient's CBC is normal. Patient's electrolytes show minimal changes sodium potassium but I do not think these are the source of her symptoms. Patient's MRI shows multiple changes. And it shows some moderate canal stenosis. But they are not reading any significant compression of the cord. They comment on a normal conus medullaris. She has a lot of postoperative changes. Patient has had symptoms for about 8 days. She had symptoms when she was seen in [facility] care. She has not filled her steroids. I explained that with her findings and exam it would not be likely to [place] to do surgery. She should take the steroids and see if she improves first. She will follow-up with her spine surgeon. I will give her a disc of the images so they can see these. Lab Data Attestation: I reviewed the patient's lab results. Labs: Laboratory Results - last 24 hr 06/28/23 19:50 WBC 6.9 RBC 4.26 Hgb 13.6 Hct 40.2 MCV 94.4 MCH 31.9 MCHC 33.8 RDW Std Deviation 50.3 H RDW Coeff of Heath 14.5 Plt Count 105 L MPV 10.1 Immature Gran % (Auto) 0.100 Neut % (Auto) 65.3 Lymph % (Auto) 18.3 L [place] % (Auto) 12.1 H Eos % (Auto) 3.6 Baso % (Auto) 0.6 Absolute Neuts (auto) 4.5 Absolute Lymphs (auto) 1.27 Nucleated RBC % 0 Sodium 147 H Potassium 3.2 L Chloride 118 H Carbon Dioxide 24.0 Anion Gap 5 BUN 16 Creatinine 0.70 Estim Creat Clear Calc 85.14 Est GFR (MDRD) Af Amer 109 Est GFR (MDRD) Non-Af 90 BUN/Creatinine Ratio 22.8 H Glucose 92 Calcium 9.1 Radiography Diagnostic Testing: Clinical Impression(s) from Imaging Studies Lumbar Spine MRI 06/28/23 19:39 IMPRESSION: Multilevel degenerative and postoperative changes, as described above. 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 Electronically Signed: Edgar Higuera MD at 22:04 EST , Discharge Plan Triage Chief Complaint: Back ED Provider: Deric Au Dx/Rx/DC Orders Clinical Impression: Chronic lower back pain, Paresthesia of bilateral legs Instructions: ED Back Pain (Acute or Chronic) Prescriptions: No Action pantoprazole [Protonix] 40 mg tablet,delayed release (DR/EC) 40 mg PO DAILY albuterol sulfate 90 mcg/actuation aerosol powdr breath activated 2 inh inhalation Q6H PRN (Reason: shortness of breath or wheezing) Qty: 1 0RF Linzess 290 mcg capsule 290 mcg PO DAILY Qty: 30 0RF hydrocodone-acetaminophen 5-325 mg tablet 1 tab PO Patient Comments: take 1 tablet by mouth twice a day for 7 days ondansetron 4 mg tablet,disintegrating 4 mg translingual Patient Comments: dissolve 1 tablet ON TONGUE every 8 hours if needed for nausea OR vomiting hydrocodone-homatropine [Hydromet] 5-1.5 mg/5 mL syrup 5 ml PO Q6H 3 Days Qty: 60 0RF Primary Care Provider: Opal Reveles Referrals: Opal Reveles MD [Primary Care Provider] - Juregn Reddy, DO [Non-Staff] - As soon as possible Activity Restrictions/Additional Instructions: Please start your steroid prescription as soon as possible. Disposition Disposition: Home, Self Care
--- NOTE | 2023-06-28 19:39 | MRI_ITS ---
STUDY: MRI LUMBAR SPINE WITHOUT CONTRAST REASON FOR EXAM: Female, 62 years old. Cauda equina TECHNIQUE: Standardized fat and water weighted pulse sequences were obtained in the sagittal and axial planes. COMPARISON: None FINDINGS: T12-L1: There is endplate change. There is disc bulge and spurring. There is ossification of the posterior longitudinal ligament extending from the T12 vertebra to the inferior aspect of the L1 vertebra series 8 image 9. Facet spurring. Moderate canal stenosis. Mild right foraminal narrowing. Normal lumbar lordosis. There is no substantial scoliosis. Normal conus medullaris that terminates at the L1 level. L1-2: Disc space narrowing with endplate changes. Disc bulge and spurring. Facet spurring. There is laminectomy. No canal stenosis. Left greater than right foraminal narrowing L2-3: Disc space narrowing. Mild spurring. Facet spurring. There is laminectomy. No canal stenosis. Left foraminal narrowing. L3-4: Disc bulge with mild spurring. Facet spurring. There is laminectomy. No canal stenosis. Mild right foraminal narrowing. L4-5: Disc space narrowing. Mild spurring. Facet spurring. There is laminectomy. No canal stenosis. Neural foramina are patent. L5-S1: Disc space narrowing. Spurring. Facet spurring. There is laminectomy. No canal stenosis. Neural foramina are patent. Normal visualized sacral ala. There is postoperative change in the posterior paraspinal soft tissues. MRI/Spine Lumbar (Routine) IMPRESSION: Multilevel degenerative and postoperative changes, as described above. 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 Electronically Signed: Edgar Higuera MD at 22:04 EST ,
[2023-06-28 20:00] LABS: Absolute Lymphocyte Count 1.27 X10^3/uL (0.83-4.51); Absolute Neutrophil Count 4.5 X10^3/uL (2.0-7.7); Basophil# 0.04 X10^3/uL; Basophil% 0.6 % (0-1); Eosinophil# 0.25 X10^3/uL; Eosinophils% 3.6 % (0-5); Hematocrit 40.2 % (37-47); Hemoglobin 13.6 g/dL (12.0-15.0); Lymphocyte # 1.27 X10^3/ul (0.83-4.51); Lymphocyte % 18.3 % (19-41); Mean Corp Hgb Conc 33.8 g/dL (32-36); Mean Corpuscular Hgb 31.9 pg (27.0-32.0); Mean Corpuscular Volume 94.4 fL (81-99); Mean Platelet Vol. 10.1 fl (6.2-12.0); Monocyte# 0.84 X10^3/uL; Monocyte% 12.1 % (0-10); NRBC Flagged by Analyzer 0 % (0-5); Neutrophil # 4.53 X10^3/uL (2.7-7.7); Neutrophil % 65.3 % (47-70); Platelet Count 105 K/mm3 (150-450); RBC Distribution Width CV 14.5 % (11.6-14.6); RBC Distribution Width SD 50.3 fl (35.1-43.9); Red Blood Count 4.26 M/mm3 (4.2-5.4); White Blood Count 6.9 K/mm3 (4.4-11.0)
[2023-06-28 20:25] LABS: Anion Gap 5 (5-15); BUN 16 mg/dL (7-18); BUN/Creat Ratio 22.8 RATIO (10-20); Calcium,Total 9.1 mg/dL (8.5-10.1); Chloride 118 mmol/L (98-107); EST Glomerular Filtration Rate 90 mL/min (>60); Est Glom Filt Rate - Afr Amer 109 mL/min (>60); Estimated Creatinine Clearance 85.14 ml/min; Glucose 92 mg/dL (74-106); Potassium 3.2 mmol/L (3.5-5.1); Sodium Level 147 mmol/L (136-145)
[2023-06-28] MEDS: Ondansetron 4 MG/2 ML Vial IV (20:58)
[2023-06-28] MEDS: DiphenhydrAMINE 50 MG/ML Syringe 25 MG IV (20:58)
[2023-06-28] MEDS: Morphine 4 MG/ML Syringe IV (20:58)
[2023-06-28] MEDS: MethylPREDNISolone 125 MG/2 ML Vial 60 MG IV (23:17)
[2023-06-28 23:19] VITALS: BP 134/73; PULSE 72
== END 2023-06-28 23:39 | disposition home or self-care (01) ==
PROVIDERS: Emergency Provider Emergency Medicine; PCP Internal Medicine; Visit Provider Emergency Medicine
DX: M54.50 Low back pain, unspecified (principal); J44.9 Chronic obstructive pulmonary disease, unspecified; G89.29 Other chronic pain; R20.2 Paresthesia of skin; E78.5 Hyperlipidemia, unspecified; Z79.899 Other long term (current) drug therapy; Z90.710 Acquired absence of both cervix and uterus; Z90.49 Acquired absence of other specified parts of digestive tract; F17.200 Nicotine dependence, unspecified, uncomplicated
CPT/HCPCS: 72148; 80048; 85025; 96374; 96375; 99283; A4216; J2405

== ENCOUNTER 2024-01-03 23:10 | Emergency (ER) | payer MEDICAID, SELFPAY ==
[2024-01-03 23:11] VITALS: BP 164/71; PULSE 105; RESP 20; TEMP 36.3; O2SAT 96
[2024-01-03 23:15] VITALS: BMI 22.6
--- NOTE | 2024-01-04 | RAD_ITS ---
INDICATION: dyspnea EXAMINATION/TECHNIQUE: X-RAY - XR Chest 2 Views COMPARISON: 02/27/2023 FINDINGS: LIFE-SUPPORT AND LINES: 1. None HEART AND VESSELS: The cardiac silhouette, pulmonary vasculature have normal appearance. No evidence of congestive failure. LUNGS AND PLEURAL SPACES: Chronic interstitial changes and bullous disease suspected at both lung bases greater on the RIGHT than LEFT however findings are stable. No infiltrate consolidation or jarad effusion. No pulmonary mass is noted. MEDIASTINUM AND HILAR REGIONS: No masses adenopathy noted. No areas of calcification. Visualized upper airway is normal in position. BONY ELEMENTS: No acute bony changes noted. Postoperative changes with anterior plate and screw fixation of the lower cervical spine. RAD/Chest PA and Lateral IMPRESSION: 1. Chronic interstitial changes at both lung bases and bullous disease at the RIGHT base. Findings are stable. 2. No acute cardiopulmonary process. 3. Postoperative changes involving the lower cervical spine. Electronically Signed: Onofre Lea MD at 0:51 EDT ,
[2024-01-04 00:13] LABS: Absolute Lymphocyte Count 0.82 X10^3/uL (0.83-4.51); Absolute Neutrophil Count 5.2 X10^3/uL (2.0-7.7); Basophil# 0.04 X10^3/uL; Basophil% 0.6 % (0-1); Eosinophil# 0.12 X10^3/uL; Eosinophils% 1.7 % (0-5); Hematocrit 40.9 % (37-47); Hemoglobin 13.2 g/dL (12.0-15.0); Lymphocyte # 0.82 X10^3/ul (0.83-4.51); Lymphocyte % 11.6 % (19-41); Mean Corp Hgb Conc 32.3 g/dL (32-36); Mean Corpuscular Hgb 31.1 pg (27.0-32.0); Mean Corpuscular Volume 96.2 fL (81-99); Mean Platelet Vol. 10.9 fl (6.2-12.0); Monocyte# 0.84 X10^3/uL; Monocyte% 11.9 % (0-10); NRBC Flagged by Analyzer 0 % (0-5); Neutrophil # 5.21 X10^3/uL (2.7-7.7); Neutrophil % 74.1 % (47-70); POSITIVE COUNT YES; Platelet Count 97 K/mm3 (150-450); RBC Distribution Width CV 14.6 % (11.6-14.6); RBC Distribution Width SD 52.1 fl (35.1-43.9); Red Blood Count 4.25 M/mm3 (4.2-5.4)
[2024-01-04 00:15] VITALS: BP 148/69; PULSE 84; RESP 18; TEMP 36.7; O2SAT 98
[2024-01-04 00:33] LABS: Anion Gap 4 (5-15); BUN 16 mg/dL (7-18); BUN/Creat Ratio 27.5 RATIO (10-20); Calcium,Total 8.9 mg/dL (8.5-10.1); Chloride 116 mmol/L (98-107); Creatinine, Serum 0.58 mg/dL (0.55-1.02); EST Glomerular Filtration Rate 111 mL/min (>60); Est Glom Filt Rate - Afr Amer 135 mL/min (>60); Estimated Creatinine Clearance 101.45 ml/min; Glucose 114 mg/dL (74-106); Magnesium 2.2 mg/dL (1.6-2.6); Potassium 3.8 mmol/L (3.5-5.1); Sodium Level 146 mmol/L (136-145)
[2024-01-04 01:00] VITALS: BP 138/74; PULSE 80; RESP 19; O2SAT 97
[2024-01-04 01:05] VITALS: PULSE 80; RESP 18
[2024-01-04] MEDS: Ipratropium/Albuterol Sulfate 3 ML AMPUL.NEB INHALATION (01:05)
[2024-01-04 01:19] VITALS: BP 146/84; PULSE 98; RESP 20; TEMP 36.4; O2SAT 96
--- NOTE | 2024-01-04 01:19 | EX.ED.DYSGE1 ---
HPI History of Present Illness Chief Complaint: Shortness of Breath Narrative Narrative: Patient is a 63-year-old female with past medical history of COPD who continues to smoke but states she has no need for supplemental oxygen at baseline. She states that she feels extremely fatigued and that with any type of physical activity she will become short of breath and her heart rate will increase to 140 bpm. She states she has had her heart evaluated multiple times at other facilities with reportedly no signs of cardiovascular disease. She has been on multiple inhalers from her pot pusher but states she does not feel they are working. She does report a past medical history of pneumonia and has concerned that her symptoms could be related to potential infection and therefore comes in for evaluation [facility] Medical History Left rotator cuff tear arthropathy Vision problems Neuropathy Breast lump Left shoulder pain Oral candidiasis History of illicit drug use Pleural effusion on right Heroin addiction History of alcoholism Anxiety and depression History of hepatitis C Tobacco dependence due to cigarettes Vitamin D deficiency Thrombocytopenia Degenerative arthritis Restless legs Injury of head and neck Fall at home Closed subcapital fracture of neck of right femur Cirrhosis of liver Impetigo Cystitis Back pain Hyperlipidemia Seasonal allergies Atopic dermatitis H pylori ulcer COPD (chronic obstructive pulmonary disease) Home Medications ?Medication ?Instructions ?Recorded ?Last Taken ?Type pantoprazole 40 mg tablet,delayed 40 mg PO DAILY 06/30/22 Unknown History release (Protonix) albuterol sulfate 90 mcg/actuation 2 inh inhalation Q6H PRN shortness 07/07/22 Unknown Rx breath activated powder inhaler of breath or wheezing #1 ea linaclotide 290 mcg capsule 290 mcg PO DAILY #30 caps 07/29/22 Unknown Rx (Linzess) hydrocodone-acetaminophen 5-325mg 1 tab PO 08/03/22 Unknown History 5mg-325mg ondansetron 4 mg disintegrating 4 mg translingual 08/03/22 Unknown History tablet hydrocodone-homatropine 5 mg-1.5 5 ml PO Q6H 3 days #60 mL 02/27/23 Unknown Rx mg/5 mL oral syrup (Hydromet) Allergy/AdvReac Type Severity Reaction Status Date / Time trazodone Allergy Mild leg cramps Verified 01/03/24 23:41 naproxen (From Naprosyn) AdvReac Upset Verified 01/03/24 23:41 Stomach tramadol AdvReac Itching Verified 01/03/24 23:41 Family History Mother FH: mental illness HLD (hyperlipidemia) Thyroid disorder Aunt No problems noted. Grandmother Heart disease Myocardial infarction Aunt Diabetes HLD (hyperlipidemia) Hypertension Grandfather COPD (chronic obstructive pulmonary disease) Sister Skin cancer Other Anxiety Arthritis Surgical History Cervical vertebral fusion H/O colonoscopy H/O: hysterectomy History of back surgery History of back surgery History of breast biopsy History of D&C History of esophagogastroduodenoscopy (EGD) History of open reduction and internal fixation (ORIF) procedure S/P cholecystectomy S/P shoulder surgery S/P TIPS (transjugular intrahepatic portosystemic shunt) Status post lumbar surgery Social History adopted: No household members: other details: Her granddaughter lives with her (17 years old). She has custody X 11 year housing: apartment number of children: 3 current occupational status: unemployed Smoking Status: Light Smoker (<10/day) Tobacco: How many years used: 32 Electronic Cigarette Use: not used how long ago did patient quit smoking: started smoking at age 28 and smoked 1/2- 1.5 PPD....she is still smoking alcohol intake: former substance use type: former substance user do you feel safe at home: Yes ROS ROS ED Constitutional Constitutional ED: Denies chills or fever(s) ENT ENT ED: Denies rhinorrhea or sore throat Cardiovascular Cardiovascular: Reports palpitations and racing heartbeat; Denies chest pain Respiratory/Chest Respiratory/Chest: Reports cough and dyspnea Gastrointestinal Gastrointestinal: Denies abdominal pain, diarrhea, nausea or vomiting Genitourinary Genitourinary ED: Denies dysuria Musculoskeletal Musculoskeletal: Denies myalgias Integumentary Denies rash Neurologic Neurologic: Denies headache(s) Hematologic/Lymphatic Hematologic/Lymphatic: Denies easy bleeding or easy bruising Allergic/Immunologic Allergic/Immunologic ED: Denies mouth swelling or tongue swelling EXAM Physical Exam Const Vital Signs: 01/03/24 23:11 01/03/24 23:39 01/04/24 00:15 Temperature 97.3 F L Temperature Source Temporal Pulse Rate 105 H Respiratory Rate 20 H Respiratory Effort Short of Breath Respiratory Depth Normal Respiratory Pattern Normal Blood Pressure 164/71 H 148/69 H Blood Pressure Mean 102 95 Pulse Ox 96 Oxygen Delivery Method Room Air Room Air 01/04/24 00:15 01/04/24 01:00 01/04/24 01:05 Temperature 98.0 F Temperature Source Temporal Pulse Rate 84 80 80 Respiratory Rate 18 19 H 18 Respiratory Effort Respiratory Depth Respiratory Pattern Normal Blood Pressure 148/69 H 138/74 H Blood Pressure Mean 95 95 Pulse Ox 98 97 Oxygen Delivery Method Room Air Room Air 01/04/24 01:19 Temperature 97.6 F L Temperature Source Pulse Rate 98 Respiratory Rate 20 H Respiratory Effort Respiratory Depth Respiratory Pattern Blood Pressure 146/84 H Blood Pressure Mean 104 Pulse Ox 96 Oxygen Delivery Method Positive well nourished and well developed General Appearance ED: well developed; Negative for pallor HEENT Reports moist mucous membranes HEENT Narrative: No tongue or lip swelling no oral lesions no airway edema or compromise Eyes PERRL and EOMs intact bilaterally General Eye ED: Negative for pale conjunctiva or scleral icterus Neck supple and no JVD Chest Wall palpation of chest normal Chest Narrative: No bony deformity or crepitance noted Resp Resp Narrative: Breath sounds are diminished throughout with diffuse expiratory wheeze. There is mild tachypnea noted. However no nasal flaring retractions or accessory muscle use Cardio regular rate and regular rhythm Extremity normal to inspection Extremity Narrative: No asymmetric edema no pitting edema negative Homans' sign bilaterally Neuro oriented x3, CN's II-XII intact bilaterally and no sensory deficits noted Sensorium / Orientation: alert Motor Exam: strength 5/5 throughout Psych mental status grossly normal Skin no rashes or lesions noted General Skin Exam: Negative for jaundice or pallor MDM MDM MDM Narrative Medical decision making narrative: Patient presented to the ER mildly tachypneic but otherwise afebrile and satting in the mid 90s on room air. She did not have any dyspnea with speech but reported that she felt her heart began to race and she was short of breath with minimal exertion. With concern this could be related to acute blood loss anemia acute kidney injury severe electrolyte abnormality potential lung disorders such as pneumonia or pneumothorax or pneumomediastinum I did elect to check basic laboratory studies with a chest x-ray. Labs and imaging studies revealed no clinically significant finding. The patient was ambulated with a pulse ox and it remained in the mid 90s and her heart rate did not elevate above 95 bpm. Therefore this time as she does not have a cardiac dysrhythmia or signs of acute coronary syndrome and there are no signs of infectious process or need for blood transfusion or electrolyte replacement I do not feel there is need for further evaluation in the hospital and patient is otherwise safe for discharge. History & Record Review Discussion w/independent historian: Patient Lab Data Attestation: I reviewed the patient's lab results. Labs: Laboratory Results - last 24 hr 01/04/24 00:05 WBC 7.0 RBC 4.25 Hgb 13.2 Hct 40.9 MCV 96.2 MCH 31.1 MCHC 32.3 RDW Std Deviation 52.1 H RDW Coeff of Heath 14.6 Plt Count 97 L MPV 10.9 Immature Gran % (Auto) 0.100 Neut % (Auto) 74.1 H Lymph % (Auto) 11.[address] [place] % (Auto) 11.9 H Eos % (Auto) 1.7 Baso % (Auto) 0.6 Absolute Neuts (auto) 5.2 Absolute Lymphs (auto) 0.82 L Nucleated RBC % 0 Sodium 146 H Potassium 3.8 Chloride 116 H Carbon Dioxide 26.0 Anion Gap 4 L BUN 16 Creatinine 0.58 Estim Creat Clear Calc 101.45 Est GFR (MDRD) Af Amer 135 Est GFR (MDRD) Non-Af 111 BUN/Creatinine Ratio 27.5 H Glucose 114 H Calcium 8.9 Magnesium 2.2 Radiography Diagnostic Testing: Clinical Impression(s) from Imaging Studies Chest X-Ray 01/04/24 00:00 IMPRESSION: 1. Chronic interstitial changes at both lung bases and bullous disease at the RIGHT base. Findings are stable. 2. No acute cardiopulmonary process. 3. Postoperative changes involving the lower cervical spine. Electronically Signed: Onofre Lea MD at 0:51 EDT , Chest x-ray as interpreted by the emergency medicine physician reveals COPD changes with bullae but no acute infiltrate pneumothorax pleural effusion or widening of the mediastinum Discharge Plan Triage Chief Complaint: Shortness of Breath ED Provider: Cosme Rizvi Dx/Rx/DC Orders Clinical Impression: COPD (chronic obstructive pulmonary disease), Tobacco dependence due to cigarettes, Physical debility Instructions: COPD: Wheezing and Chest Tightness Prescriptions: No Action pantoprazole [Protonix] 40 mg tablet,delayed release (DR/EC) 40 mg PO DAILY albuterol sulfate 90 mcg/actuation aerosol powdr breath activated 2 inh inhalation Q6H PRN (Reason: shortness of breath or wheezing) Qty: 1 0RF Linzess 290 mcg capsule 290 mcg PO DAILY Qty: 30 0RF hydrocodone-acetaminophen 5-325 mg tablet 1 tab PO Patient Comments: take 1 tablet by mouth twice a day for 7 days ondansetron 4 mg tablet,disintegrating 4 mg translingual Patient Comments: dissolve 1 tablet ON TONGUE every 8 hours if needed for nausea OR vomiting hydrocodone-homatropine [Hydromet] 5-1.5 mg/5 mL syrup 5 ml PO Q6H 3 Days Qty: 60 0RF Primary Care Provider: Roslyn Amaral Referrals: Roslyn Amaral DO [Primary Care Provider] - Activity Restrictions/Additional Instructions: Please continue all of your home medications as directed by your doctor and return to the ER should you have any further concern Print Language: Malagasy Disposition Disposition: Home, Self Care Discharge Date/Time: 01/04/24 01:23
== END 2024-01-04 01:23 | disposition home or self-care (01) ==
PROVIDERS: Emergency Provider Emergency Medicine; PCP Family Medicine; Visit Provider Emergency Medicine
DX: J44.9 Chronic obstructive pulmonary disease, unspecified (principal); F17.210 Nicotine dependence, cigarettes, uncomplicated
CPT/HCPCS: 71046; 80048; 83735; 85025; 94640; 99284; A4216

== ENCOUNTER 2024-02-28 17:44 | Emergency (ER) | payer MEDICAID, SELFPAY ==
[2024-02-28 17:44] VITALS: BP 118/68; PULSE 74; RESP 18; TEMP 36.9; O2SAT 99; BMI 21.7
--- NOTE | 2024-02-28 20:31 | ED.RN ---
States she is tired of waiting. LWBS at 2024.
== END 2024-02-28 20:25 | disposition left against medical advice (07) ==
LOC: ED 20:31
PROVIDERS: PCP Family Medicine
DX: R05.9 Cough, unspecified (principal)

== ENCOUNTER 2024-06-11 11:35 | Emergency (ER) | payer MEDICAID, SELFPAY ==
[2024-06-11 11:36] VITALS: BP 120/100; PULSE 106; RESP 20; TEMP 36.3; O2SAT 93; BMI 22.1
--- NOTE | 2024-06-11 11:59 | EKG12_ITS ---
Test Reason : Blood Pressure : */* mmHG Vent. Rate : 88 BPM Atrial Rate : 88 BPM P-R Int : 122 ms QRS Dur : 78 ms QT Int : 352 ms P-R-T Axes : 66 69 67 degrees QTcB Int : 425 ms Normal sinus rhythm Nonspecific ST abnormality Abnormal ECG Confirmed by GERMAN RAZO, BRIGITTE ([id number]), market editor SANDY MIX ([id number]) on 06/12/2024 10:55:59 A M Referred By: Confirmed By: BRIGITTE PORTER MD
--- NOTE | 2024-06-11 11:59 | RAD_ITS ---
EXAM: XR CHEST, 2 VIEWS CLINICAL INDICATION: chest pain TECHNIQUE: Frontal and lateral views of the chest. COMPARISON: January 04, 2024 chest x-ray FINDINGS: LUNGS AND PLEURAL SPACES: Emphysema and bronchitis. Right pleural parenchymal scarring, stable since the prior study. Bronchial wall thickening bilaterally. No pneumothorax. No effusion. No consolidation. HEART: Unremarkable. Cardiac silhouette not enlarged. MEDIASTINUM: No hilar or cardiomediastinal enlargement. BONES/JOINTS: Redemonstration of cervical thoracic fusion hardware with no gross complications on limited assessment. No acute fracture. SOFT TISSUES: Unremarkable. UPPER ABDOMEN: Upper abdomen is unchanged. Redemonstration of TIPS stent in place. RAD/Chest PA and Lateral IMPRESSION: 1. No acute cardiopulmonary disease. 2. Smoking related lung changes. Electronically Signed: Cosme Tse MD at 13:04 EST ,
[2024-06-11] MEDS: MethylPREDNISolone 125 MG/2 ML Vial IV (12:10)
--- NOTE | 2024-06-11 12:14 | EDS_ITS ---
HPI <CHARLY Mustafa - Last Filed: 06/11/24 15:39> History of Present Illness Chief Complaint: Chest Pain Narrative Narrative: Patient presenting today due to left-sided chest pain she has had intermittently for years. This morning, her pain started around 8:30 AM. She also reports increased wheezing over the last few days. She did start taking methylprednisolone yesterday that she was previously prescribed but did not take. She has had shortness of breath on exertion chronically that also seems slightly worse than her baseline. She does not use supplemental O2 at home. She does admit to a history of tobacco use and smokes close to a pack per day. She denies any significant cardiac history, she reports that she last had a stress test last year. Additionally, she is requesting that a ammonia level be drawn. She has a history of hepatitis C and liver cirrhosis and reports, it smells like my ammonia has been higher. She denies any significant confusion. She has a PMH ago for COPD, liver cirrhosis, hepatitis C, and HTN. PE Risk Factors: Negative for Recent Travel/Surgery, Recent Immobilization, Prior DVT or PE or Cancer PFS <CHARLY Mustafa - Last Filed: 06/11/24 15:39> FOR[facility]LY [facility] Medical History Left rotator cuff tear arthropathy Vision problems Neuropathy Breast lump Left shoulder pain Oral candidiasis History of illicit drug use Pleural effusion on right Heroin addiction History of alcoholism Anxiety and depression History of hepatitis C Tobacco dependence due to cigarettes Vitamin D deficiency Thrombocytopenia Degenerative arthritis Restless legs Injury of head and neck Fall at home Closed subcapital fracture of neck of right femur Cirrhosis of liver Impetigo Cystitis Back pain Hyperlipidemia Seasonal allergies Atopic dermatitis H pylori ulcer COPD (chronic obstructive pulmonary disease) Home Medications ?Medication ?Instructions ?Recorded ?Last Taken ?Type pantoprazole 40 mg tablet,delayed 40 mg PO DAILY 06/30/22 Unknown History release (Protonix) albuterol sulfate 90 mcg/actuation 2 inh inhalation Q6H PRN shortness 07/07/22 Unknown Rx breath activated powder inhaler of breath or wheezing #1 ea linaclotide 290 mcg capsule 290 mcg PO DAILY #30 caps 07/29/22 Unknown Rx (Linzess) hydrocodone-acetaminophen 5-325mg 1 tab PO 08/03/22 Unknown History 5mg-325mg ondansetron 4 mg disintegrating 4 mg translingual 08/03/22 Unknown History tablet hydrocodone-homatropine 5 mg-1.5 5 ml PO Q6H 3 days #60 mL 02/27/23 Unknown Rx mg/5 mL oral syrup (Hydromet) Allergy/AdvReac Type Severity Reaction Status Date / Time trazodone Allergy Mild leg cramps Verified 02/28/24 17:44 naproxen (From Naprosyn) AdvReac Upset Verified 02/28/24 17:44 Stomach tramadol AdvReac Itching Verified 02/28/24 17:44 Family History Mother FH: mental illness HLD (hyperlipidemia) Thyroid disorder Aunt No problems noted. Grandmother Heart disease Myocardial infarction Aunt Diabetes HLD (hyperlipidemia) Hypertension Grandfather COPD (chronic obstructive pulmonary disease) Sister Skin cancer Other Anxiety Arthritis Surgical History Cervical vertebral fusion H/O colonoscopy H/O: hysterectomy History of back surgery History of back surgery History of breast biopsy History of D&C History of esophagogastroduodenoscopy (EGD) History of open reduction and internal fixation (ORIF) procedure S/P cholecystectomy S/P shoulder surgery S/P TIPS (transjugular intrahepatic portosystemic shunt) Status post lumbar surgery Social History adopted: No household members: other details: Her granddaughter lives with her (17 years old). She has custody X 11 year housing: apartment number of children: 3 current occupational status: unemployed Smoking Status: Light Smoker (<10/day) Tobacco: How many years used: 32 Electronic Cigarette Use: not used how long ago did patient quit smoking: started smoking at age 28 and smoked 1/2- 1.5 PPD....she is still smoking alcohol intake: former substance use type: former substance user do you feel safe at home: Yes ROS <CHARLY Mustafa - Last Filed: 06/11/24 15:39> ROS ED Constitutional Constitutional ED: Denies chills or fever(s) Cardiovascular Cardiovascular: Reports chest pain; Denies palpitations Respiratory/Chest Respiratory/Chest: Reports cough, dyspnea on exertion and wheezing; Denies tachypnea Gastrointestinal Gastrointestinal: Denies abdominal pain, nausea or vomiting Musculoskeletal Musculoskeletal: Denies arthralgias or myalgias Integumentary Denies rash Neurologic Neurologic: Denies confusion or weakness EXAM <CHARLY Mustafa - Last Filed: 06/11/24 15:39> Physical Exam Const Vital Signs: 06/11/24 11:36 06/11/24 12:33 06/11/24 12:35 Temperature 97.4 F L Temperature Source Temporal Pulse Rate 106 H 85 Respiratory Rate 20 H 21 H Blood Pressure 120/100 H 137/93 H Blood Pressure Mean 106 107 Pulse Ox 93 99 100 Oxygen Delivery Method Room Air Room Air 06/11/24 12:35 06/11/24 13:00 06/11/24 14:00 Temperature Temperature Source Pulse Rate 86 93 96 Respiratory Rate 20 H 17 18 Blood Pressure 129/62 H 135/66 H Blood Pressure Mean 84 89 Pulse Ox 98 98 Oxygen Delivery Method Room Air Room Air 06/11/24 14:32 Temperature 97.8 F Temperature Source Pulse Rate 89 Respiratory Rate 16 Blood Pressure 128/67 H Blood Pressure Mean 87 Pulse Ox 100 Oxygen Delivery Method Positive well nourished, well developed and no apparent distress General Appearance ED: well developed HEENT Reports normocephalic and head/scalp atraumatic Mouth ED: Yes moist mucous membranes normal Eyes PERRL and EOMs intact bilaterally Neck full ROM and supple Chest Wall inspection of chest normal Chest Narrative: Reproducible pain to palpation to the left side of the chest. Resp normal respiratory effort Resp Narrative: Mild expiratory wheezes to the bilateral lung harris. Auscultation: wheezes Cardio regular rate and regular rhythm GI soft to palpation, non-tender, non-distended and no masses Back/Spine normal ROM and normal to inspection Extremity normal to inspection and full ROM General Extremety ED: Negative for edema General Extremity: Negative for edema Neuro oriented x3, CN's II-XII intact bilaterally, moves all extremities, no focal motor deficits and no sensory deficits noted Sensorium / Orientation: awake and alert Psych mental status grossly normal and thought process normal Skin no rashes or lesions noted and no wounds <Dr. Demond Alarcon DO - Last Filed: 06/11/24 15:16> Physical Exam Const Vital Signs: 06/11/24 11:36 06/11/24 12:33 06/11/24 12:35 Temperature 97.4 F L Temperature Source Temporal Pulse Rate 106 H 85 Respiratory Rate 20 H 21 H Blood Pressure 120/100 H 137/93 H Blood Pressure Mean 106 107 Pulse Ox 93 99 100 Oxygen Delivery Method Room Air Room Air 06/11/24 12:35 06/11/24 13:00 06/11/24 14:00 Temperature Temperature Source Pulse Rate 86 93 96 Respiratory Rate 20 H 17 18 Blood Pressure 129/62 H 135/66 H Blood Pressure Mean 84 89 Pulse Ox 98 98 Oxygen Delivery Method Room Air Room Air 06/11/24 14:32 Temperature 97.8 F Temperature Source Pulse Rate 89 Respiratory Rate 16 Blood Pressure 128/67 H Blood Pressure Mean 87 Pulse Ox 100 Oxygen Delivery Method [facility] <CHARLY Mustafa - Last Filed: 06/11/24 15:39> [facility] Narrative Medical decision making narrative: Patient presenting today due to left-sided chest pain she has had for years. She did tell the attending physician that her pain usually comes on suddenly and she often feels anxious when the pain begins. She thinks it could be related to her anxiety and she does have a lot of stress in her life right now. She does have reproducible tenderness to the left side of her chest. She reports she had a stress test a year ago at [facility] that was normal. She has a low Wells score, low suspicion for PE. She will be given albuterol and DuoNeb breathing treatments as well as IV Solu-Medrol. She otherwise is nontoxic- appearing, her O2 saturation is 100% on room air. Labs were obtained, her CBC shows a platelet count of 95, this is consistent with previous labs. Potassium was 3.4, the rest of her BMP is unremarkable. She did request an ammonia level be checked, this is unremarkable. Her chest pain is atypical in nature and she has had the symptoms intermittently for years. I did encourage smoking cessation, she is planning on following up with her PCP to discuss medications that can help her stop smoking. I recommended she finish her Medrol Dosepak for her COPD exacerbation. She will be discharged home in stable condition. Lab Data Attestation: I reviewed the patient's lab results. Labs: Laboratory Results - last 24 hr 06/11/24 06/11/24 12:10 12:20 WBC 6.3 RBC 4.07 L Hgb 13.2 Hct 39.7 MCV 97.5 MCH 32.4 H MCHC 33.2 RDW Std Deviation 54.6 H RDW Coeff of Heath 15.2 H Plt Count 95 L MPV 9.9 Immature Gran % (Auto) 0.300 Neut % (Auto) 73.9 H Lymph % (Auto) 11.3 L Divide % (Auto) 13.7 H Eos % (Auto) 0.2 Baso % (Auto) 0.6 Absolute Neuts (auto) 4.7 Absolute Lymphs (auto) 0.71 L Nucleated RBC % 0 Sodium 143 Potassium 3.4 L Chloride 115 H Carbon Dioxide 23.0 Anion Gap 5 BUN 12 Creatinine 0.46 L Estim Creat Clear Calc 127.92 Est GFR (MDRD) Af Amer 176 Est GFR (MDRD) Non-Af 145 BUN/Creatinine Ratio 26.0 H Glucose 101 Calcium 8.5 Ammonia < 10.0 L Troponin I High Sens 7 Radiography X-Ray: Read by ED Physician Diagnostic Testing: Clinical Impression(s) from Imaging Studies Chest X-Ray 06/11/24 11:59 IMPRESSION: 1. No acute cardiopulmonary disease. 2. Smoking related lung changes. Electronically Signed: Cosme Tse MD at 13:04 EST , EKG Initial EKG: Comments: 88 bpm, normal sinus rhythm, no ST elevation, interpreted by attending ED physician <Dr. Demond Alarcon, DO - Last Filed: 06/11/24 15:16> MDM History & Record Review Discussion w/independent historian: EMS personnel and Patient Lab Data Labs: Laboratory Results - last 24 hr 06/11/24 06/11/24 12:10 12:20 WBC 6.3 RBC 4.07 L Hgb 13.2 Hct 39.7 MCV 97.5 MCH 32.4 H MCHC 33.2 RDW Std Deviation 54.6 H RDW Coeff of Heath 15.2 H Plt Count 95 L MPV 9.9 Immature Gran % (Auto) 0.300 Neut % (Auto) 73.9 H Lymph % (Auto) 11.3 L Divide % (Auto) 13.7 H Eos % (Auto) 0.2 Baso % (Auto) 0.6 Absolute Neuts (auto) 4.7 Absolute Lymphs (auto) 0.71 L Nucleated RBC % 0 Sodium 143 Potassium 3.4 L Chloride 115 H Carbon Dioxide 23.0 Anion Gap 5 BUN 12 Creatinine 0.46 L Estim Creat Clear Calc 127.92 Est GFR (MDRD) Af Amer 176 Est GFR (MDRD) Non-Af 145 BUN/Creatinine Ratio 26.0 H Glucose 101 Calcium 8.5 Ammonia < 10.0 L Troponin I High Sens 7 Radiography Diagnostic Testing: Clinical Impression(s) from Imaging Studies Chest X-Ray 06/11/24 11:59 IMPRESSION: 1. No acute cardiopulmonary disease. 2. Smoking related lung changes. Electronically Signed: Cosme Tse MD at 13:04 EST Reading Location ID and State: [address] [place] [address] Tel , Service support , Treatment and Re-Evaluation :: I have personally performed a face to face assessment of the patient and have reviewed the YUKO Note. I performed a substantive portion of the visit including all aspects of the following. My reid findings include: History is 63-year-old female presenting to the emergency room with sudden onset of chest tightness. Patient states that she has had this multiple x 9 years. Sometimes it comes on suddenly and sometimes it comes on gradually. She states that she has a history of anxiety and is no longer on any medication for it because her pain management doctor said she could not be on both pain medication and her anxiolytic. So she chose her pain medicine. She states that she has never been able to find a definitive cause for the symptoms. She notes that yesterday she felt wheezing more than normal and found a box of methylprednisolone and began taking it. Exam is afebrile vital signs are stable. Well-appearing female sitting up in bed. She does appear somewhat anxious seems to have pressured speech. There is a faint expiratory wheeze intermittently. Medical Decision Making prehospital and are EKG are nonischemic. Troponin is negative. And interpretation of the chest x-ray is no acute process. Patient states that her symptoms went away and then came back and then they went away and now they came back again. They are a bit atypical and I do wonder if there is a strong anxiety component here. Again she has had this multiple times before with no definitive cause. I believe the patient can be discharged home. She is comfortable with this. We discussed following up with primary care to discuss her mental health. Discharge Plan Triage Chief Complaint: Chest Pain ED Midlevel Provider: Rossy Gerrad ED Provider: Demond Alarcon Dx/Rx/DC Orders Clinical Impression: Atypical chest pain, COPD exacerbation Instructions: ED Chest Pain, Noncardiac, ED COPD Flare Prescriptions: No Action pantoprazole [Protonix] 40 mg tablet,delayed release (DR/EC) 40 mg PO DAILY albuterol sulfate 90 mcg/actuation aerosol powdr breath activated 2 inh inhalation Q6H PRN (Reason: shortness of breath or wheezing) Qty: 1 0RF Linzess 290 mcg capsule 290 mcg PO DAILY Qty: 30 0RF hydrocodone-acetaminophen 5-325 mg tablet 1 tab PO Patient Comments: take 1 tablet by mouth twice a day for 7 days ondansetron 4 mg tablet,disintegrating 4 mg translingual Patient Comments: dissolve 1 tablet ON TONGUE every 8 hours if needed for nausea OR vomiting hydrocodone-homatropine [Hydromet] 5-1.5 mg/5 mL syrup 5 ml PO Q6H 3 Days Qty: 60 0RF Primary Care Provider: Roslyn Amaral Referrals: Roslyn Amaral DO [Primary Care Provider] - 5-7 Days Activity Restrictions/Additional Instructions: Follow-up with your PCP, return for any other concerns. Continue your steroids. Print Language: Emirati Disposition Disposition: Home, Self Care Discharge Date/Time: 06/11/24 14:33
[2024-06-11 12:19] LABS: Absolute Lymphocyte Count 0.71 X10^3/uL (0.83-4.51); Absolute Neutrophil Count 4.7 X10^3/uL (2.0-7.7); Basophil# 0.04 X10^3/uL; Basophil% 0.6 % (0-1); Eosinophil# 0.01 X10^3/uL; Eosinophils% 0.2 % (0-5); Hematocrit 39.7 % (37-47); Hemoglobin 13.2 g/dL (12.0-15.0); Lymphocyte # 0.71 X10^3/ul (0.83-4.51); Lymphocyte % 11.3 % (19-41); Mean Corp Hgb Conc 33.2 g/dL (32-36); Mean Corpuscular Hgb 32.4 pg (27.0-32.0); Mean Corpuscular Volume 97.5 fL (81-99); Mean Platelet Vol. 9.9 fl (6.2-12.0); Monocyte# 0.86 X10^3/uL; Monocyte% 13.7 % (0-10); NRBC Flagged by Analyzer 0 % (0-5); Neutrophil # 4.66 X10^3/uL (2.7-7.7); Neutrophil % 73.9 % (47-70); POSITIVE COUNT YES; Platelet Count 95 K/mm3 (150-450); RBC Distribution Width CV 15.2 % (11.6-14.6); RBC Distribution Width SD 54.6 fl (35.1-43.9); Red Blood Count 4.07 M/mm3 (4.2-5.4); White Blood Count 6.3 K/mm3 (4.4-11.0)
[2024-06-11 12:33] VITALS: BP 137/93; PULSE 85; RESP 21; O2SAT 99
[2024-06-11 12:35] VITALS: PULSE 86; RESP 20; O2SAT 100
[2024-06-11] MEDS: Albuterol 2.5 MG/3 ML VIAL.NEB. INHALATION (12:37)
[2024-06-11] MEDS: Ipratropium/Albuterol Sulfate 3 ML AMPUL.NEB INHALATION (12:37)
[2024-06-11 12:43] LABS: Anion Gap 5 (5-15); BUN 12 mg/dL (7-18); Calcium,Total 8.5 mg/dL (8.5-10.1); Chloride 115 mmol/L (98-107); Creatinine, Serum 0.46 mg/dL (0.55-1.02); EST Glomerular Filtration Rate 145 mL/min (>60); Est Glom Filt Rate - Afr Amer 176 mL/min (>60); Estimated Creatinine Clearance 127.92 ml/min; Glucose 101 mg/dL (74-106); Potassium 3.4 mmol/L (3.5-5.1); Sodium Level 143 mmol/L (136-145); Troponin-I HS (w/2H Reflex) 7 pg/mL (3.0-54.0)
[2024-06-11 12:49] LABS: Ammonia < 10.0 umol/L (11-32)
[2024-06-11 13:00] VITALS: BP 129/62; PULSE 93; RESP 17; O2SAT 98
[2024-06-11 14:00] VITALS: BP 135/66; PULSE 96; RESP 18; O2SAT 98
[2024-06-11 14:15] LABS: Reflex Troponin-HS? (from REC) Y
[2024-06-11] MEDS: Ketorolac 15 MG/ML Vial IV (14:15)
--- NOTE | 2024-06-11 14:19 | ED.RN ---
per nickolas PARKS, delta troponin not needed
[2024-06-11 14:32] VITALS: BP 128/67; PULSE 89; RESP 16; TEMP 36.6; O2SAT 100
== END 2024-06-11 14:33 | disposition home or self-care (01) ==
PROVIDERS: Physician Assistant; Emergency Provider Emergency Medicine; PCP Family Medicine; Visit Provider Emergency Medicine
DX: R07.89 Other chest pain (principal); J44.1 Chronic obstructive pulmonary disease with (acute) exacerbation; I10 Essential (primary) hypertension; F17.200 Nicotine dependence, unspecified, uncomplicated; E78.5 Hyperlipidemia, unspecified; Z90.710 Acquired absence of both cervix and uterus; B19.20 Unspecified viral hepatitis C without hepatic coma; Z90.49 Acquired absence of other specified parts of digestive tract
CPT/HCPCS: 71046; 80048; 82140; 84484; 85025; 93005; 94640; 96374; 96375; 99284; A4216

== ENCOUNTER 2024-06-14 11:30 | Inpatient (IN) | payer MEDICAID, SELFPAY ==
[2024-06-14] VITALS (21 sets, daily range): BP systolic 84–179; BP diastolic 56–110; PULSE 73–142; RESP 12–39; TEMP 36.4–36.6; O2SAT 94–100; BMI 20.6
[2024-06-14 12:01] LABS: Bedside Glucose 124 mg/dL (74-106)
--- NOTE | 2024-06-14 12:11 | EKG12_ITS ---
Test Reason : SOB Blood Pressure : */* mmHG Vent. Rate : 111 BPM Atrial Rate : 111 BPM P-R Int : 134 ms QRS Dur : 68 ms QT Int : 316 ms P-R-T Axes : 76 80 75 degrees QTcB Int : 429 ms Sinus tachycardia with Premature atrial complexes Possible Left atrial enlargement Nonspecific ST abnormality Abnormal ECG Confirmed by GERMAN RAZO, BRIGITTE ([id number]), offline editor FERNIE PHILLIP ([id number]) on 06/20/2024 7:07:05 AM Referred By: Confirmed By: BRIGITTE PORTER MD
--- NOTE | 2024-06-14 12:30 | RAD_ITS ---
EXAM: XR CHEST, 2 VIEWS CLINICAL INDICATION: SOB TECHNIQUE: Frontal and lateral views of the chest. COMPARISON: 06/11/2024. FINDINGS: LUNGS AND PLEURAL SPACES: Pulmonary hyperinflation. Blebs and/or bullous changes in the right lung base. Right pleural effusion and/or pleural thickening. No left pleural effusion. No consolidation or edema. No pneumothorax. HEART: Unremarkable. Cardiac silhouette not enlarged. MEDIASTINUM: Central airways and mediastinal contour are unremarkable. BONES/JOINTS: Metallic plate with transfixing screws in the cervical spine. No acute fracture. SOFT TISSUES: Unremarkable. RAD/Chest PA and Lateral IMPRESSION: 1. No acute findings in the chest. 2. COPD with blebs and/or bullous changes in the right lung base. 3. Right pleural effusion and/or right pleural thickening. 4. No significant change. Electronically Signed: Brian Elaine MD at 12:48 EST ,
[2024-06-14 12:36] LABS: Absolute Lymphocyte Count 1.47 X10^3/uL (0.83-4.51); Absolute Neutrophil Count 2.9 X10^3/uL (2.0-7.7); Basophil# 0.03 X10^3/uL; Basophil% 0.6 % (0-1); Eosinophil# 0.08 X10^3/uL; Eosinophils% 1.5 % (0-5); Lymphocyte # 1.47 X10^3/ul (0.83-4.51); Lymphocyte % 28.4 % (19-41); Mean Corp Hgb Conc 32.6 g/dL (32-36); Mean Corpuscular Hgb 31.6 pg (27.0-32.0); Mean Platelet Vol. 10.5 fl (6.2-12.0); Monocyte# 0.68 X10^3/uL; Monocyte% 13.2 % (0-10); NRBC Flagged by Analyzer 0 % (0-5); Neutrophil % 56.1 % (47-70); POSITIVE COUNT YES; POSITIVE MORPHOLOGY YES; Platelet Count 83 K/mm3 (150-450); RBC Distribution Width SD 54.3 fl (35.1-43.9); Red Blood Count 4.74 M/mm3 (4.2-5.4); White Blood Count 5.2 K/mm3 (4.4-11.0)
[2024-06-14 12:42] LABS: ALB/GLOB Ratio 1.1 RATIO (0.9-2.4); AST(SGOT) 29 U/L (15-37); Alanine Aminotransfer ALT/SGPT 37 U/L (13-56); Alkaline Phosphatase 106 U/L (45-117); Anion Gap 9 (5-15); BUN 18 mg/dL (7-18); BUN/Creat Ratio 31.8 RATIO (10-20); Calcium,Total 8.7 mg/dL (8.5-10.1); Chloride 112 mmol/L (98-107); Creatinine, Serum 0.57 mg/dL (0.55-1.02); EST Glomerular Filtration Rate 115 mL/min (>60); Est Glom Filt Rate - Afr Amer 139 mL/min (>60); Estimated Creatinine Clearance 99.51 ml/min; Globulin 2.7 g/dL (2.2-4.2); Glucose 85 mg/dL (74-106); Potassium 3.5 mmol/L (3.5-5.1); Protein, Total 5.7 g/dL (6.4-8.2); Sodium Level 144 mmol/L (136-145)
--- NOTE | 2024-06-14 12:42 | ED.VIS.DYS ---
HPI History of Present Illness Chief Complaint: Shortness of Breath Detail of Chief Complaint: Shortness of breath Informant: patient Narrative Narrative: Patient presents with shortness of breath that started over a week ago. She was seen in the emergency department about 3 to 4 days ago and discharged to home. She has history of COPD. Patient with prior history of right pleural effusion. She complains of worsening exertional dyspnea. She currently does not wear home O2 but had prior to moving back to the area. She used to see a counter roller here at the [facility] in [place], Dr. Salgado, and was started but is scheduled to see a new counter roller in [facility] and [place]. Patient has a cough. Bringing up white to clear mucus. Intermittently has chest discomfort with breathing. Denies recent travel or surgery. [facility] Medical History Left rotator cuff tear arthropathy Vision problems Neuropathy Breast lump Left shoulder pain Oral candidiasis History of illicit drug use Pleural effusion on right Heroin addiction History of alcoholism Anxiety and depression History of hepatitis C Tobacco dependence due to cigarettes Vitamin D deficiency Thrombocytopenia Degenerative arthritis Restless legs Injury of head and neck Fall at home Closed subcapital fracture of neck of right femur Cirrhosis of liver Impetigo Cystitis Back pain Hyperlipidemia Seasonal allergies Atopic dermatitis H pylori ulcer COPD (chronic obstructive pulmonary disease) Home Medications ?Medication ?Instructions ?Recorded ?Last Taken ?Type pantoprazole 40 mg tablet,delayed 40 mg PO DAILY 06/30/22 Unknown History release (Protonix) albuterol sulfate 90 mcg/actuation 2 inh inhalation Q6H PRN shortness 07/07/22 Unknown Rx breath activated powder inhaler of breath or wheezing #1 ea ondansetron 4 mg disintegrating 4 mg translingual Q8H PRN nausea 08/03/22 Unknown History tablet and vomiting gabapentin 600 mg tablet 600 mg PO QHS 06/14/24 Unknown History oxycodone-acetaminophen 5 mg-325 1 tab PO BID PRN PRN pain 06/14/24 Unknown History mg tablet Allergy/AdvReac Type Severity Reaction Status Date / Time trazodone Allergy Mild leg cramps Verified 06/14/24 11:31 naproxen (From Naprosyn) AdvReac Upset Verified 06/14/24 11:31 Stomach tramadol AdvReac Itching Verified 06/14/24 11:31 Family History Mother FH: mental illness HLD (hyperlipidemia) Thyroid disorder Aunt No problems noted. Grandmother Heart disease Myocardial infarction Aunt Diabetes HLD (hyperlipidemia) Hypertension Grandfather COPD (chronic obstructive pulmonary disease) Sister Skin cancer Other Anxiety Arthritis Surgical History Cervical vertebral fusion H/O colonoscopy H/O: hysterectomy History of back surgery History of back surgery History of breast biopsy History of D&C History of esophagogastroduodenoscopy (EGD) History of open reduction and internal fixation (ORIF) procedure S/P cholecystectomy S/P shoulder surgery S/P TIPS (transjugular intrahepatic portosystemic shunt) Status post lumbar surgery Social History adopted: No household members: other details: Her granddaughter lives with her (17 years old). She has custody X 11 year housing: apartment number of children: 3 current occupational status: unemployed Smoking Status: Former smoker Tobacco: How many years used: 32 Electronic Cigarette Use: not used how long ago did patient quit smoking: started smoking at age 28 and smoked 1/2- 1.5 PPD....she is still smoking alcohol intake: former substance use type: former substance user do you feel safe at home: Yes ROS ROS ED Review of Systems ROS Unobtainable: other Constitutional Constitutional ED: Reports lethargy; Denies chills, fever(s), sweats or weight loss Eyes Eyes: Denies blurry vision, change in vision or diplopia ENT ENT ED: Denies rhinorrhea or sore throat Cardiovascular Cardiovascular: Reports chest pain; Denies orthopnea or racing heartbeat Respiratory/Chest Respiratory/Chest: Reports cough, dyspnea and dyspnea on exertion; Denies orthopnea or sputum Gastrointestinal Gastrointestinal: Denies abdominal pain, diarrhea, nausea or vomiting Genitourinary Genitourinary ED: Denies dysuria, hematuria or urinary frequency Musculoskeletal Musculoskeletal: Denies arthralgias, back pain, myalgias or neck pain Integumentary Denies abscess, Abrasions or rash Neurologic Neurologic: Denies headache(s) or weakness Psychiatric Psychiatric: Denies anxiety, depression or suicidal thoughts Endocrine Endocrinology: Denies polydipsia, polyphagia or polyuria Hematologic/Lymphatic Hematologic/Lymphatic: Denies easy bleeding, easy bruising or lymphadenopathy Allergic/Immunologic Allergic/Immunologic ED: Denies mouth swelling, tongue swelling or urticaria EXAM Physical Exam Const Vital Signs: 06/14/24 11:33 06/14/24 11:33 06/14/24 11:41 Temperature 98 F Temperature Source Oral Pulse Rate 113 H Respiratory Rate 34 H Respiratory Effort Short of Breath Labored Respiratory Pattern Tachypnea Blood Pressure 179/98 H Blood Pressure Mean 125 Pulse Ox 100 100 Oxygen Delivery Method Non-Rebreather Nasal Cannula Oxygen Flow Rate (L/min) 15 4 06/14/24 13:00 06/14/24 13:04 06/14/24 13:41 Temperature 98 F Temperature Source Oral Pulse Rate 101 H 96 113 H Respiratory Rate 24 H 32 H 24 H Respiratory Effort Respiratory Pattern Tachypnea Tachypnea Blood Pressure 149/86 H Blood Pressure Mean 107 Pulse Ox 95 Oxygen Delivery Method Nasal Cannula Oxygen Flow Rate (L/min) 2 06/14/24 14:28 Temperature Temperature Source Pulse Rate 122 H Respiratory Rate 28 H Respiratory Effort Respiratory Pattern Tachypnea Blood Pressure Blood Pressure Mean Pulse Ox Oxygen Delivery Method Oxygen Flow Rate (L/min) Positive well nourished and well developed General Appearance ED: well developed and NAD HEENT Reports TM's clear and moist mucous membranes normocephalic and atraumatic; Negative for trauma or tenderness Tympanic Membrane ED: Yes TM's clear Eyes PERRL and EOMs intact bilaterally General Eye ED: Negative for pale conjunctiva or scleral icterus Neck no lymphadenopathy, supple and no JVD General: Negative for tenderness Chest Wall inspection of chest normal and palpation of chest normal Chest: Negative for tenderness Resp No normal respiratory effort and No clear to auscultation bilaterally Resp Narrative: Patient with mild conversational dyspnea. She has tachypnea. She has decreased breath sounds bilaterally and sounds tight with expiratory wheezes bilaterally. Effort and Inspection: Negative for respiratory distress or pain with movement Auscultation: diminished lung sounds; Negative for rhonchi or wheezes Cardio regular rate, regular rhythm, S1 normal heart sound, S2 normal heart sound and no murmurs Peripheral Pulses: pulses 2+ throughout GI normal to inspection, nondistended, normoactive bowel sounds, soft to palpation, non-tender, non-distended and no masses Back/Spine no CVA tenderness and no thoracic nor lumbar tenderness Extremity normal to inspection General Extremety ED: Negative for edema General Extremity: Negative for edema Neuro oriented x3, CN's II-XII intact bilaterally, no sensory deficits noted and gait normal Sensorium / Orientation: awake, alert, oriented to person, oriented to place and oriented to time Motor Exam: strength 5/5 throughout and strength abnormal Psych mental status grossly normal Skin no rashes or lesions noted and no wounds MDM MDM MDM Narrative Medical decision making narrative: Patient presents with increasing shortness of breath that been ongoing for over a week. She is has a cough. In the differential would be pneumonia versus PE versus CHF or other etiology such as pneumothorax. An IV line established. EKG obtained showed sinus tachycardia with rate of 111 bpm with left atrial enlargement and nonspecific ST changes. CBC with differential count of 5.2 with hemoglobin 15 and platelet count of 83,000. Chemistries unremarkable. Troponin normal at 13. D-dimer elevated 1.38. Initial chest x-ray showed no acute findings showed COPD with right pleural effusion and right pleural thickening. CTA of the right chest was obtained to rule out PE. Official report pending but I do not appreciate an obvious PE. I have some concern for possible infiltrate in the right lower lobe with the effusion and pleural thickening. I did start patient on Levaquin and obtain blood cultures. Case discussed with hospitalist will evaluate patient for admission. Initially she was medicated with DuoNeb aerosol and was started on Solu-Medrol. She was started on Levaquin. Lab Data Attestation: I reviewed the patient's lab results. Labs: Laboratory Results - last 24 hr 06/14/24 06/14/24 06/14/24 11:42 12:17 13:00 WBC 5.2 RBC 4.74 Hgb 15.0 Hct 46.0 MCV 97.0 MCH 31.6 MCHC 32.6 RDW Std Deviation 54.3 H RDW Coeff of Heath 15.0 H Plt Count 83 L MPV 10.5 Immature Gran % (Auto) 0.200 Neut % (Auto) 56.1 Lymph % (Auto) 28.4 Donley % (Auto) 13.2 H Eos % (Auto) 1.5 Baso % (Auto) 0.6 Absolute Neuts (auto) 2.9 Absolute Lymphs (auto) 1.47 Nucleated RBC % 0 Atypical Lymphocytes 1+ Platelet Estimate MOD DEC D-Dimer Quant (PE/DVT) 1.38 H* Sodium 144 Potassium 3.5 Chloride 112 H Carbon Dioxide 24.0 Anion Gap 9 BUN 18 Creatinine 0.57 Estim Creat Clear Calc 99.51 Est GFR (MDRD) Af Amer 139 Est GFR (MDRD) Non-Af 115 BUN/Creatinine Ratio 31.8 H Glucose 85 Calcium 8.7 Total Bilirubin 2.00 H AST 29 ALT 37 Alkaline Phosphatase 106 Troponin I High Sens 13 B-Natriuretic Peptide 37.6 Total Protein 5.7 L Albumin 3.0 L Globulin 2.7 Albumin/Globulin Ratio 1.1 POC Glucose 124 H Radiography Diagnostic Testing: Clinical Impression(s) from Imaging Studies Chest X-Ray 06/14/24 12:30 IMPRESSION: 1. No acute findings in the chest. 2. COPD with blebs and/or bullous changes in the right lung base. 3. Right pleural effusion and/or right pleural thickening. 4. No significant change. Electronically Signed: Brian Elaine MD at 12:48 EST , EKG Initial EKG: Attestation: I personally reviewed and interpreted this EKG as follows: Comments: Sinus tachycardia with ventricular rate of [address] changes and left atrial enlargement Discharge Plan Dx/Rx/DC Orders Clinical Impression: COPD exacerbation, Pneumonia, Respiratory failure Disposition Disposition: Acute Care Hospital [facility]
[2024-06-14 12:50] LABS: Differential Indicated SCAN CRITERIA MET
[2024-06-14] MEDS: Ipratropium/Albuterol Sulfate 3 ML AMPUL.NEB INHALATION ×3 (12:59→23:12)
[2024-06-14] MEDS: Albuterol 2.5 MG/3 ML VIAL.NEB. INHALATION ×4 (12:59→19:20)
[2024-06-14 13:12] LABS: Atypical Lymphocyte 1+ %; Platelet Estimate MOD DEC (ADEQ)
[2024-06-14 13:24] LABS: D-Dimer Quantitative (DVT/PE) 1.38 FEU/ug/m (0.27-0.49)
--- NOTE | 2024-06-14 13:28 | CT_ITS ---
EXAM: CT ANGIOGRAPHY CHEST WITHOUT AND WITH INTRAVENOUS CONTRAST CLINICAL INDICATION: Dyspnea. TECHNIQUE: Helically acquired angiography images were obtained of the chest without and with intravenous contrast. This CT exam was performed using one or more of the following dose reduction techniques: automated exposure control, adjustment of the mA and/or kV according to patient size, and/or use of iterative reconstruction technique. MIP reconstructed images were created and reviewed. CONTRAST: IV 100mL Isovue-370 RADIATION DOSE: CTDIvol = 8.95 mGy, DLP = 386.56 mGy-cm COMPARISON: CTA chest 02/27/2022. FINDINGS: PULMONARY ARTERIES: Unremarkable. Normal in caliber. No evidence of pulmonary embolism. AORTA: Unremarkable. Normal aortic arch and origins of the great vessels. Normal thoracic aorta without dissection. GREAT VESSELS OF AORTIC ARCH: Unremarkable. Normal in caliber. No evidence of dissection. LUNGS AND PLEURAL SPACES: Breathing motion artifacts. Centrilobular cysts and bullous emphysema in the right middle lobe and right lower lobe. Right posterior pleural effusion. Mild pulmonary hyperinflation and flattening of the hemidiaphragms. Prominent subpleural atelectasis with air bronchograms in the posterior surface of the right lower lobe. No mass. HEART: Unremarkable. Heart size is normal. No pericardial effusion. No significant coronary artery calcifications. MEDIASTINUM: Unremarkable. No mediastinal or hilar adenopathy. Esophagus is unremarkable. No hiatal hernia. THYROID: Unremarkable. No thyroid lesions. BONES/JOINTS: Unremarkable. No suspicious lytic or blastic abnormality. LIVER: Nodularity of the liver surface to cirrhosis. Metallic Wallstent from previous portocaval shunt procedure is intact. CT/CTA Chest W/WO Contrast IMPRESSION: 1. No pulmonary embolism, thoracic aneurysm or dissection. 2. Right posterior pleural effusion is unchanged. 3. Centrilobular cysts and bullous emphysema in the right middle lobe and right lower lobe. Right posterior pleural effusion. Mild pulmonary hyperinflation and flattening of the hemidiaphragms. Chronic prominent subpleural atelectasis with air bronchograms in the posterior surface of the right lower lobe. Superimposed pneumonia cannot be excluded. The presence of pulmonary emphysema on CT is an independent risk factor for lung cancer. Consider low dose CT lung cancer screening into future (current chest CT will serve as baseline). Electronically Signed: Brian Elaine MD at 15:56 EST ,
[2024-06-14 13:32] LABS: BNP,B-Type NATRIURETIC PEPTIDE 37.6 pg/mL (0-100)
[2024-06-14 13:34] LABS: Troponin-I HS 13 pg/mL (3.0-54.0)
[2024-06-14] MEDS: levoFLOXacin IV 750 MG/150 ML BAG 100 MG IV (14:41)
[2024-06-14] MEDS: oxyCODONE 5 MG Tablet PO (14:43)
[2024-06-14] MEDS: LORazepam 2 MG/ML Syringe 0.5 MG IV (14:48)
--- NOTE | 2024-06-14 15:13 | HP.PCM.HOS_ITS ---
HPI - General General Date of Service: 06/14/24 Chief Complaint: Increasing SOB HPI Narrative BRET SIMS, is a 63y/o F w/ hx of COPD, tobacco use, hep C, and gerd presented to [facility] 06/14/24 w/ 1 week of increasing SOB. She was seen in ED 3-4 days ago and d/c?d home. Since then she has had worsening dyspnea. Not presently on home O2 but used to be before moving back to the area. She is schedule to f/u with a new orchid superintendent in July in [place]. Patient called squad this a.m. due to her worsened Hartness of breath and was placed on O2 at 6 L and then turned up to 12 L due to her continued increased work of breathing. On arrival to ED pt w/ HR 113, BP 179/98, RR 34 and was 100% on non rebreather. CXR redomonstrated a R pleural effusion and findings consistent w/ COPD. No significant change since CXR 06/11/24. COVID, flu, RSV negative. BMP and CBC non contributory. Ddimer 1.38, BNP 37.6, trop 13. Patient had CTA in the ED with formal read pending but appeared to have a right lower lobe infiltrate, effusion that was actually better than imaging in 2021. Patient given Levaquin, breathing treatments, methylprednisone and due to anxiety given lorazepam and hospitalist contacted for admission. Patient evaluated at bedside and O2 saturation 94% nasal cannula but patient significantly tachypneic with respiratory rate high 20s to 30s and heart rate 140s/150s with patient appearing anxious. She is unsure if any of the interventions have been particularly helpful yet but does not feel worse than she did on presentation. Reports some chills at home, has productive cough with white phlegm but she is unsure if this is more than usual, does note the increasing shortness of breath and reports she began having significant difficulty last night but was able to calm down and improved her breathing but today it returned prompting her to come to the ED. Gets some intermittent headaches, reports she has not been eating or drinking well as she has not been feeling well and has not been getting up to get food or water. Had some swelling in her lower extremities a couple weeks ago bilaterally that she reports has resolved. Did quit smoking 5 days ago. Denies alcohol or drug use. [facility] Medical History Left rotator cuff tear arthropathy Vision problems Neuropathy Breast lump Left shoulder pain Oral candidiasis History of illicit drug use Pleural effusion on right Heroin addiction History of alcoholism Anxiety and depression History of hepatitis C Tobacco dependence due to cigarettes Vitamin D deficiency Thrombocytopenia Degenerative arthritis Restless legs Injury of head and neck Fall at home Closed subcapital fracture of neck of right femur Cirrhosis of liver Impetigo Cystitis Back pain Hyperlipidemia Seasonal allergies Atopic dermatitis H pylori ulcer COPD (chronic obstructive pulmonary disease) Home Medications ?Medication ?Instructions ?Recorded ?Last Taken ?Type pantoprazole 40 mg tablet,delayed 40 mg PO DAILY 06/30/22 Unknown History release (Protonix) albuterol sulfate 90 mcg/actuation 2 inh inhalation Q6H PRN shortness 07/07/22 06/13/24 Rx breath activated powder inhaler of breath or wheezing #1 ea ondansetron 4 mg disintegrating 4 mg translingual Q8H PRN nausea 08/03/22 Unknown History tablet and vomiting albuterol sulfate 2.5 mg/3 mL 2.5 mg inhalation UD 06/14/24 06/13/24 History (0.083 %) solution for nebulization budesonide-formoterol HFA 160 2 puff inhalation 06/14/24 06/13/24 History mcg-4.5 mcg/actuation aerosol inhaler (Symbicort) gabapentin 600 mg tablet 600 mg PO QHS 06/14/24 06/13/24 History lactulose 10 gram/15 mL oral 10 g PO TID PRN constipation 06/14/24 Unknown History solution (Constulose) mupirocin 2 % topical ointment 1 applic topical TID PRN skin 06/14/24 Unknown History irritation oxycodone-acetaminophen 5 mg-325 1 tab PO BID PRN pain 06/14/24 06/14/24 History mg tablet Allergy/AdvReac Type Severity Reaction Status Date / Time trazodone Allergy Mild leg cramps Verified 06/14/24 11:31 naproxen (From Naprosyn) AdvReac Upset Verified 06/14/24 11:31 Stomach tramadol AdvReac Itching Verified 06/14/24 11:31 Family History Mother FH: mental illness HLD (hyperlipidemia) Thyroid disorder Aunt No problems noted. Grandmother Heart disease Myocardial infarction Aunt Diabetes HLD (hyperlipidemia) Hypertension Grandfather COPD (chronic obstructive pulmonary disease) Sister Skin cancer Other Anxiety Arthritis Surgical History Cervical vertebral fusion H/O colonoscopy H/O: hysterectomy History of back surgery History of back surgery History of breast biopsy History of D&C History of esophagogastroduodenoscopy (EGD) History of open reduction and internal fixation (ORIF) procedure S/P cholecystectomy S/P shoulder surgery S/P TIPS (transjugular intrahepatic portosystemic shunt) Status post lumbar surgery Social History adopted: No household members: other details: Her granddaughter lives with her (17 years old). She has custody X 11 year housing: apartment number of children: 3 current occupational status: unemployed Smoking Status: Former smoker Tobacco: How many years used: 32 Electronic Cigarette Use: not used how long ago did patient quit smoking: started smoking at age 28 and smoked 1/2- 1.5 PPD....she is still smoking alcohol intake: former substance use type: former substance user do you feel safe at home: Yes ROS ROS Narrative General: Reports some chills HENT: Possibly sore throat, intermittently will get some headaches EYES: Denies changes in vision Resp: Cough with white sputum and increased shortness of breath Cardiac: Denies chest pain GI: Had some crampy lower abdominal pain yesterday that is improving but does report constipation, denies nausea/vomiting but does feel little bit gaggy : Denies changes in urination Extremity: Denies swelling at this time MSK: Some generalized weakness Neuro: Denies any numbness/tingling Heme: Easy bruising Skin: Denies rashes Psychiatric: Feeling anxious Vital Signs Vital Signs Vital Signs: 06/14/24 11:33 06/14/24 11:33 06/14/24 11:41 Temperature 98 F Temperature Source Oral Pulse Rate 113 H Respiratory Rate 34 H Respiratory Effort Short of Breath Labored Respiratory Pattern Tachypnea Blood Pressure 179/98 H Blood Pressure Mean 125 Pulse Ox 100 100 Oxygen Delivery Method Non-Rebreather Nasal Cannula Oxygen Flow Rate (L/min) 15 4 06/14/24 13:00 06/14/24 13:04 06/14/24 13:41 Temperature 98 F Temperature Source Oral Pulse Rate 101 H 96 113 H Respiratory Rate 24 H 32 H 24 H Respiratory Effort Respiratory Pattern Tachypnea Tachypnea Blood Pressure 149/86 H Blood Pressure Mean 107 Pulse Ox 95 Oxygen Delivery Method Nasal Cannula Oxygen Flow Rate (L/min) 2 06/14/24 14:28 Temperature Temperature Source Pulse Rate 122 H Respiratory Rate 28 H Respiratory Effort Respiratory Pattern Tachypnea Blood Pressure Blood Pressure Mean Pulse Ox Oxygen Delivery Method Oxygen Flow Rate (L/min) Weight Weight: 61.6 kg Body Mass Index (BMI) 20.6 Physical Exam Narrative General: Alert, appears anxious and distressed HEENT: Atraumatic, normocephalic Eyes: Anicteric, normal conjunctiva, extraocular movements grossly intact Neck: Supple Respiratory: Increased respiratory effort/respiratory distress, diffuse wheezing Cardiovascular: Tachycardic, appears regular GI: Soft, nontender, nondistended Extremities: Trace lower extremity edema Musculoskeletal: Moving all extremities Neuro: No overt focal neurological deficits Skin: No rashes appreciated Psych: Appears very anxious Results Lab / Micro Data 06/14/24 12:17 06/14/24 12:17 Labs: Laboratory Results - last 24 hr 06/14/24 11:42: POC Glucose 124 H 06/14/24 12:17: WBC 5.2, RBC 4.74, Hgb 15.0, Hct 46.0, MCV 97.0, MCH 31.6, MCHC 32.6, RDW Std Deviation 54.3 H, RDW Coeff of Heath 15.0 H, Plt Count 83 L, MPV 10.5, Immature Gran % (Auto) 0.200, Neut % (Auto) 56.1, Lymph % (Auto) 28.4, M aysha % (Auto) 13.2 H, Eos % (Auto) 1.5, Baso % (Auto) 0.6, Absolute Neuts (auto) 2.9, Absolute Lymphs (auto) 1.47, Nucleated RBC % 0, Atypical Lymphocytes 1+, Platelet Estimate MOD DEC, Sodium 144, Potassium 3.5, Chloride 112 H, Carbon Dioxide 24.0, Anion Gap 9, BUN 18, Creatinine 0.57, Estim Creat Clear Calc 99.51, Est GFR (MDRD) Af Amer 139, Est GFR (MDRD) Non-Af 115, BUN/Creatinine Ratio 31.8 H, Glucose 85, Calcium 8.7, Total Bilirubin 2.00 H, AST 29, ALT 37, Alkaline Phosphatase 106, B-Natriuretic Peptide 37.6, Total Protein 5.7 L, A lbumin 3.0 L, Globulin 2.7, Albumin/Globulin Ratio 1.1 06/14/24 13:00: D-Dimer Quant (PE/DVT) 1.38 H*, Troponin I High Sens 13 Micro: Microbiology 06/14/24 12:21 Mucosa - Nose SARS-CoV-2, Influenza & RSV (PCR) - Final Imaging Radiology Impression Chest X-Ray 06/14/24 12:30 IMPRESSION: 1. No acute findings in the chest. 2. COPD with blebs and/or bullous changes in the right lung base. 3. Right pleural effusion and/or right pleural thickening. 4. No significant change. Electronically Signed: Brian Elaine MD at 12:48 EST , Assessment & Plan Assessment/Plan (1) Shortness of breath: PLAN: Plan # Shortness of breath/respiratory distress due to COPD exacerbation and suspect underlying pneumonia -Patient still in respiratory distress and tachypneic and tachycardic, does not acutely need intubated but may need stepped up to BiPAP and if she continues to have significant respiratory distress may need intubated so we will place patient in ICU, continuous O2 monitoring -She is okay with short-term intubation if it is a lifesaving measure -Chest x-ray: With right pleural effusion, similar to multiple previous chest x- rays -CTA official read pending, does appear to have a right sided infiltrate, has some effusion on the right side as well but this is actually improved from 2021 and appears to be chronic at this point in time COVID negative, obtain respiratory panel, sputum culture if able -O2 in place, wean as tolerated -IV methylprednisone -Scheduled DuoNebs -Albuterol prn -Antibiotics: Continue levaquin -Incentive spirometer -Mucinex -Urine antigens #GERD -Continue Protonix #Tobacco use -Quit 5 days ago, continue to encourage cessation #DVT ppx: SCDs Dejah Davila MD Charges/Coding Visit Charges Inpatient E&M: 08233 Init Hosp L2
[2024-06-14 15:59] LABS: Lactic Acid 2.5 mmol/L (0.4-1.9)
[2024-06-14] MEDS: dexMEDEtomidine 400 MCG in 0.9% Normal Saline (100mL Bag) 96 ML 7.7 MCG CONT INF (17:57)
[2024-06-14] MEDS: 0.9% Normal Saline (1000mL) 1,000 ML 75 ML IV (17:57)
[2024-06-14 18:37] LABS: Reflex Lactate? Y
[2024-06-14 19:42] LABS: Lactic Acid 2.1 mmol/L (0.4-1.9)
[2024-06-14] MEDS: Gabapentin 600 MG Tablet PO (21:14)
[2024-06-14] MEDS: guaiFENesin 1,200 MG Tablet 1200 MG PO (21:14)
[2024-06-14] MEDS: Senna/Docusate Sodium 1 Tablet 2 TABLET PO (21:14)
--- NOTE | 2024-06-14 22:04 | CPS ---
Patient refuses AVAPS at this time
[2024-06-15] VITALS (32 sets, daily range): BP systolic 97–149; BP diastolic 60–91; PULSE 65–132; RESP 12–229; TEMP 36.6–37; O2SAT 92–100; BMI 20.8
[2024-06-15] MEDS: dexMEDEtomidine 400 MCG in 0.9% Normal Saline (100mL Bag) 96 ML 12.3 MCG CONT INF (01:57)
[2024-06-15] MEDS: Ipratropium/Albuterol Sulfate 3 ML AMPUL.NEB INHALATION ×6 (02:17→23:07)
[2024-06-15 05:26] LABS: Absolute Lymphocyte Count 0.66 X10^3/uL (0.83-4.51); Absolute Neutrophil Count 3.3 X10^3/uL (2.0-7.7); Basophil# 0.02 X10^3/uL; Basophil% 0.5 % (0-1); Hematocrit 39.3 % (37-47); Hemoglobin 13.3 g/dL (12.0-15.0); Lymphocyte # 0.66 X10^3/ul (0.83-4.51); Mean Corp Hgb Conc 33.8 g/dL (32-36); Mean Corpuscular Hgb 32.4 pg (27.0-32.0); Mean Corpuscular Volume 95.6 fL (81-99); Mean Platelet Vol. 10.6 fl (6.2-12.0); Monocyte# 0.17 X10^3/uL; Monocyte% 4.1 % (0-10); NRBC Flagged by Analyzer 0 % (0-5); Neutrophil # 3.26 X10^3/uL (2.7-7.7); Neutrophil % 78.9 % (47-70); POSITIVE COUNT YES; POSITIVE MORPHOLOGY YES; Platelet Count 57 K/mm3 (150-450); RBC Distribution Width CV 14.4 % (11.6-14.6); RBC Distribution Width SD 50.6 fl (35.1-43.9); Red Blood Count 4.11 M/mm3 (4.2-5.4); White Blood Count 4.1 K/mm3 (4.4-11.0)
[2024-06-15 05:31] LABS: Differential Indicated SCAN CRITERIA MET
[2024-06-15 05:47] LABS: Anion Gap 6 (5-15); BUN 19 mg/dL (7-18); BUN/Creat Ratio 43.4 RATIO (10-20); Chloride 114 mmol/L (98-107); Creatinine, Serum 0.44 mg/dL (0.55-1.02); EST Glomerular Filtration Rate 154 mL/min (>60); Est Glom Filt Rate - Afr Amer 187 mL/min (>60); Estimated Creatinine Clearance 130.05 ml/min; Glucose 191 mg/dL (74-106); Potassium 3.9 mmol/L (3.5-5.1); Sodium Level 141 mmol/L (136-145)
[2024-06-15 07:17] LABS: Atypical Lymphocyte 2+ %; Platelet Estimate MKD DEC (ADEQ)
[2024-06-15] MEDS: levoFLOXacin IV 750 MG/150 ML BAG 100 MG IV (08:43)
[2024-06-15] MEDS: Senna/Docusate Sodium 1 Tablet 2 TABLET PO ×2 (08:44→22:08)
[2024-06-15] MEDS: guaiFENesin 1,200 MG Tablet 1200 MG PO ×2 (08:44→22:07)
[2024-06-15] MEDS: Pantoprazole Sodium 40 MG Tablet PO (08:44)
[2024-06-15] MEDS: 0.9% Normal Saline (1000mL) 1,000 ML 75 ML IV ×2 (09:00→22:25)
[2024-06-15] MEDS: Oseltamivir Phosphate 75 MG Capsule PO ×2 (10:17→22:08)
[2024-06-15] MEDS: oxyCODONE 5 MG Tablet PO ×3 (10:21→22:08)
[2024-06-15] MEDS: hydrOXYzine 10 MG Tablet PO (12:42)
--- NOTE | 2024-06-15 15:19 | CASEMGMT ---
Social Work- SW met with pt to conduct SDOH. SW introduced self and role; pt agreeable to meeting. Pt had just had a coughing spell and was short of breath and anxious. SW discussed coping skills and calming techniques, as well as mindfulness. Pt was able to slow breathing and regulate self through guidance. Pt reports that she was homeless for four months and lived in car due to losing her apartment in [place] because of rent increase. Pt worked with [employer] to secure an efficiency apartment at [facility], where pt has lived for a 'few weeks'. Pt reports that she has a storage unit in [place] with a BSC and shower chair in it. Pt has a rollator that she uses in her apartment. Pt has no stairs into home, but has 8 stairs to the parking lot. Pt has a car, but no heat in the car which prevents pt from driving it in the cold. Pt reports that her daughter and granddaughter also assist with transport as they are able. Pt receives SSD and has a SNAP card. Pt reports that she does not run out of food, but cooking is very challenging for her, so she would like meals on wheels. Pt reports that cleaning is also hard for her and would like assistance with this as well. Pt shared that she does not have a medic alert, but has a cell phone that she tries to keep close. SW provided education on medic alert. Pt shared that she missed an appointment with [facility] d/t . Pt was going to be connected with case management services. Pt reports situation-specific anxiety that can be severe. Pt also reports mild general depression. Pt was noted to be labile in emotions in conversation and very quick to tear up. Pt was observed to have rapid speech and poor eye contact. Pt reports that she would like to cease smoking. Pt reports no current drug or alcohol use. Pt reports that she is incontinent at times of urine and stool due to a previous back surgery. Pt reports back surgeon retired and she does not want to see anyone else at this time. Pt reports 3 daughters; one she does not have a relationship with, one in [place] that pt is very close to, and one in [place] that is living in her car and was recently hit by a car and needed surgery to repair her leg. Pt became very emotional discussing relationships with daughters. Pt reports daija grandchildren, and one great grandchild, that pt reports she sees frequently. Daughter, Le, and granddaughter, Talita, are reported by pt to be her supports. Pt reports at this time, her plan is to go home with [facility]. SW will follow for therapy recommendations. SW provided resources on MOW, transportation, CAWM, WH[facility] card, [facility], and contact information for [facility] to reschedule appointment. Pt would like to complete HCPOA; SW will follow up to complete. ANDRES Blackwood
--- NOTE | 2024-06-15 15:22 | CASEMGMT ---
Discharge Planning A list of?HH providers including quality and resource use data and consistent with the patient's preferred geographic region, medical needs, and insurance network was created in CarePort Guide.? This list was provided to the RN CARLOS. Latasha Hua, Discharge Planning Asst.
--- NOTE | 2024-06-15 15:30 | CASEMGMT ---
FLYNN GONZALEZ NOTE: Jenifer SIM, was just in to see pt for SDOH and obtained information. See Jenifer note. This RN CM to room to complete CM assessment/obtain further information. PCP: Dr Amaral. Specialists: She was seeing poultry barn manager, Dr Fay Salgado, but now plans to f/u with a poultry barn manager @ [facility], and has an upcoming appt 07/31. She does not remember the new poultry barn manager's name. Pt states she also sees a GI specialist in [place], but does not remember their name. Pharmacy: [facility] @ discharge. Otherwise, goes to [facility], in [place]. DME: pt has a nebulizer and rollator @ her apt currently. She does not have any home O2 or pulse ox. Discussed possible need of Home O2. She states her apt is so small she does not have much room for a machine and prefers not to go home on O2. If it would be necessary, she states to use [employer] after verbal review of local DME companies provided. She does not have a pulse ox and cannot afford one. She has a shower chair and BSC in storage. She denies need for other DME at this time. HCPOA: Pt would like to complete HCPOA, stating she would like to name her daughter, Le, as her agent. FLYNN GONZALEZ obtained Le's correct address and phone # and updated in [employer]. Jenifer SIM, made aware pt would like to complete HCPOA. HHC: Pt would like HHC. A list of [facility] providers including quality and resource use data and consistent with the patient?s preferred geographic region, medical needs, and insurance network were printed from the CarePort Guide and given to Jenifer SIM, who states he will give to pt when going into pt's room next. Tobacco use: Pt just stopped smoking ~ 6 days ago. She wants to continue to not smoke. She requested Nicoderm patch. RNKarmen, made aware. Pt also interested in smoking cessation information. CPS notified. Plan: Home w/HHC. Avril BURRELL RN, CM
--- NOTE | 2024-06-15 15:55 | PN_ITS ---
Subjective Subjective Patient seen and examined. She was lethargic but able to communicate. She denied any fever, chills, cough, chest pain, palpitations, dizziness nausea, vomiting or any other symptoms. Review of systems is otherwise negative. She was started on precedex drip overnight due to agitation as she was refusing to wear her BIPAP. She wa son room air at time of review. Objective Data Objective Data Vital Signs: Vital Signs Temp Pulse Resp BP Pulse Ox O2 Del Method O2 Flow Rate 98.6 F 89 18 97/65 96 Room Air 3 06/15/24 12:00 06/15/24 15:20 06/15/24 15:20 06/15/24 14:00 06/15/24 15:21 06/15/24 15:21 06/15/24 08:00 FiO2 06/15/24 14:00 Oxygen Flow Rate (L/min) 3 Oxygen Delivery Method Room Air Weight: 136 lb 15.994 oz Body Mass Index (BMI) 20.8 Intake & Output: Intake and Output for Last 24 Hours 06/13/24 06/14/24 06/15/24 23:59 23:59 23:59 Intake Total 568.46 / 580.76 2227.89 / 2227.89 Output Total 300 / 300 150 / 150 Balance 268.46 / 280.76 2077.89 / 2077.89 Lab / Micro Data 06/15/24 05:12 06/15/24 05:12 Labs: Laboratory Results - last 24 hr 06/14/24 14:30: Lactic Acid 2.5 H* 06/14/24 18:55: Lactic Acid 2.1 H* 06/15/24 05:12: WBC 4.1 L, RBC 4.11 L, Hgb 13.3, Hct 39.3, MCV 95.6, MCH 32.4 H, MCHC 33.8, RDW Std Deviation 50.6 H, RDW Coeff of Heath 14.4, Plt Count 57 L, MPV 10.6, Immature Gran % (Auto) 0.500, Neut % (Auto) 78.9 H, Lymph % (Auto) 16.0 L, [place] % (Auto) 4.1, Eos % (Auto) 0.0, Baso % (Auto) 0.5, Absolute Neuts (auto) 3.3, Absolute Lymphs (auto) 0.66 L, Nucleated RBC % 0, Atypical Lymphocytes 2+, Platelet Estimate MKD DEC, Sodium 141, Potassium 3.9, Chloride 114 H, Carbon Dioxide 21.0, Anion Gap 6, BUN 19 H, Creatinine 0.44 L, Estim Creat Clear Calc 130.05, Est GFR (MDRD) Af Amer 187, Est GFR (MDRD) Non-Af 154, BUN/Creatinine Ratio 43.4 H, Glucose 191 H, Calcium 8.0 L, TSH 0.280 L Micro: Microbiology 06/14/24 17:05 Mucosa - Nose Respiratory Panel (PCR) - Final Parainfluenza 3 06/14/24 17:00 Urine, Clean Catch Legionella Antigen - Final 06/14/24 17:00 Urine, Clean Catch Streptococcus pneumoniae Antigen (M - Final 06/14/24 12:21 Mucosa - Nose SARS-CoV-2, Influenza & RSV (PCR) - Final Radiography Diagnostic Testing: Radiology Impression Chest CTA 06/14/24 13:28 IMPRESSION: 1. No pulmonary embolism, thoracic aneurysm or dissection. 2. Right posterior pleural effusion is unchanged. 3. Centrilobular cysts and bullous emphysema in the right middle lobe and right lower lobe. Right posterior pleural effusion. Mild pulmonary hyperinflation and flattening of the hemidiaphragms. Chronic prominent subpleural atelectasis with air bronchograms in the posterior surface of the right lower lobe. Superimposed pneumonia cannot be excluded. The presence of pulmonary emphysema on CT is an independent risk factor for lung cancer. Consider low dose CT lung cancer screening into future (current chest CT will serve as baseline). Electronically Signed: Brian Elaine MD at 15:56 EST , Physical Exam Const no apparent distress Orientation / Consciousness: lethargic HEENT normocephalic, head/scalp atraumatic, moist oral mucous membranes and oropharynx normal Eyes PERRL and EOMs intact bilaterally Neck no lymphadenopathy and supple Lymph Lymphatic: no lymphadenopathy noted Resp normal respiratory effort, normal air movement and clear to auscultation bilaterally Cardio regular rate, regular rhythm, S1 normal heart sound, S2 normal heart sound and no murmurs GI normal to inspection, nondistended, normoactive bowel sounds, soft to palpation, non-tender and non-distended Extremity normal capillary refill, no clubbing, cyanosis or edema and no calf tenderness General Extremity: no tenderness to palpation of joints or extremities Skin General Skin Exam: no breakdown Neuro CN's II-XII intact bilaterally, no focal motor deficits and no sensory deficits noted Motor Exam: general weakness Psych Psych Narrative: lethargic, flat affect. Mood & Affect: flat affect Assessment & Plan Assessment/Plan (1) Pneumonia: (2) COPD exacerbation: PLAN: Plan #HYpoxia due to COPD exacerbation and probable community acquired pneumonia * now on room air * CXR showed a right pleural effusion which was present on previous imaging * CTA chest showedno PE, thoracic aneurysm or dissection, with posterior right pleural effusion being unchanged. * covid was negative. Respiratory panel negative * on IV levaquin and iV solumedrol * breahting treatment with bronchodilators * titrate oxygen to maintain sats >90% * #Acute encephalopathy * likely due to COPD exacerbation and community acquired pneumonia * management as above * was started on precedex drip overnight due to agitation. Wean off precedex * #Low TSH * TSH is low at 0.28. WIll check free T4 to check for hyperthyroidism. * #GERD; on PPI #Nicotine dependence: quit a few days prior to admission. Nicotine patch 21mg daily. Counseled to continue cessation. DVT prophylaxis; SCDs. Charges/Coding Visit Charges Inpatient E&M: 54477 Subs Hosp L2
--- NOTE | 2024-06-15 16:45 | EKG12_ITS ---
Test Reason : CP Blood Pressure : */* mmHG Vent. Rate : 111 BPM Atrial Rate : 111 BPM P-R Int : 136 ms QRS Dur : 74 ms QT Int : 330 ms P-R-T Axes : 68 72 72 degrees QTcB Int : 448 ms Sinus tachycardia Possible Left atrial enlargement Nonspecific ST abnormality Abnormal ECG No previous ECGs available Confirmed by GERMAN RAZO, BRIGITTE ([id number]), advertising editor FERNIE PHILLIP ([id number]) on 06/19/2024 2:05:27 PM Referred By: Confirmed By: BRIGITTE PORTER MD
[2024-06-15 16:55] LABS: T4 Free Direct 1.29 ng/dL (0.76-1.46)
[2024-06-15] MEDS: Nitroglycerin (INPATIENT USE) 0.4 MG TAB.SUBL SL (17:09)
[2024-06-15 17:22] LABS: Troponin-I HS 5 pg/mL (3.0-54.0)
[2024-06-15] MEDS: Ensure Plus High Protein 120 ML LIQUID PO ×2 (18:46→22:06)
[2024-06-15 19:26] LABS: Troponin-I HS 5 pg/mL (3.0-54.0)
[2024-06-15] MEDS: 0.9% Saline Lock 10 ML Syringe IV (20:10)
[2024-06-15] MEDS: Ondansetron 4 MG/2 ML Vial IV (20:10)
[2024-06-15] MEDS: Gabapentin 600 MG Tablet PO (22:07)
[2024-06-15] MEDS: Acetaminophen 325 MG Tablet 650 MG PO (22:09)
[2024-06-15 23:07] LABS: Troponin-I HS 6 pg/mL (3.0-54.0)
[2024-06-16] VITALS (32 sets, daily range): BP systolic 112–170; BP diastolic 62–89; PULSE 92–149; RESP 12–34; TEMP 36.5–37.1; O2SAT 92–98; BMI 21.6
[2024-06-16] MEDS: hydrOXYzine 10 MG Tablet PO ×4 (02:25→21:00)
[2024-06-16] MEDS: oxyCODONE 5 MG Tablet PO ×5 (02:25→21:00)
[2024-06-16] MEDS: Ipratropium/Albuterol Sulfate 3 ML AMPUL.NEB INHALATION ×5 (03:36→23:13)
[2024-06-16] MEDS: Ondansetron 4 MG/2 ML Vial IV (03:49)
[2024-06-16] MEDS: Acetaminophen 325 MG Tablet 650 MG PO ×2 (06:35→21:01)
--- NOTE | 2024-06-16 07:20 | CPS ---
found pt on RA. Sats are 95% left pr on RA at this time
[2024-06-16] MEDS: Pantoprazole Sodium 40 MG Tablet PO (07:51)
[2024-06-16] MEDS: Ensure Plus High Protein 120 ML LIQUID PO ×2 (07:54→14:17)
[2024-06-16] MEDS: guaiFENesin 1,200 MG Tablet 1200 MG PO ×2 (07:55→21:00)
[2024-06-16] MEDS: Oseltamivir Phosphate 75 MG Capsule PO ×2 (07:55→21:00)
[2024-06-16] MEDS: levoFLOXacin IV 750 MG/150 ML BAG 100 MG IV (07:55)
[2024-06-16] MEDS: Senna/Docusate Sodium 1 Tablet 2 TABLET PO ×2 (07:55→21:00)
[2024-06-16 09:20] LABS: Anion Gap 5 (5-15); BUN 25 mg/dL (7-18); BUN/Creat Ratio 42.6 RATIO (10-20); Calcium,Total 8.8 mg/dL (8.5-10.1); Chloride 115 mmol/L (98-107); Creatinine, Serum 0.59 mg/dL (0.55-1.02); EST Glomerular Filtration Rate 110 mL/min (>60); Est Glom Filt Rate - Afr Amer 133 mL/min (>60); Estimated Creatinine Clearance 99.73 ml/min; Glucose 115 mg/dL (74-106); Potassium 4.1 mmol/L (3.5-5.1); Sodium Level 142 mmol/L (136-145)
[2024-06-16 09:25] LABS: Absolute Neutrophil Count 13.7 X10^3/uL (2.0-7.7); Basophil# 0.03 X10^3/uL; Basophil% 0.2 % (0-1); Eosinophil# 0.02 X10^3/uL; Eosinophils% 0.1 % (0-5); Hematocrit 40.9 % (37-47); Hemoglobin 13.8 g/dL (12.0-15.0); Lymphocyte % 6.3 % (19-41); Mean Corp Hgb Conc 33.7 g/dL (32-36); Mean Corpuscular Hgb 32.2 pg (27.0-32.0); Mean Corpuscular Volume 95.6 fL (81-99); Mean Platelet Vol. 10.5 fl (6.2-12.0); Monocyte# 0.88 X10^3/uL; Monocyte% 5.6 % (0-10); NRBC Flagged by Analyzer 0 % (0-5); Neutrophil # 13.73 X10^3/uL (2.7-7.7); Platelet Count 113 K/mm3 (150-450); RBC Distribution Width CV 14.9 % (11.6-14.6); RBC Distribution Width SD 51.2 fl (35.1-43.9); Red Blood Count 4.28 M/mm3 (4.2-5.4); White Blood Count 15.8 K/mm3 (4.4-11.0)
--- NOTE | 2024-06-16 10:22 | CASEMGMT ---
Addendum entered by Kailey Del Real 06/16/24 11:57: Pt made aware both [facility] and [facility] have declined. She states has no other preference and states is okay for blanket referral sent to all the other C agencies. Original Note: FLYNN GONZALEZ NOTE: FLYNN GONZALEZ to room. Pt stated yesterday she [facility], but per Tatianna, they are not able to accept pt at this time. Pt was made aware of same. She looked over HHC list and states her next preference is [facility] and then [facility]. She states she not only would like a nurse to come see her, but also therapy, stating her legs have been so weak. FLYNN GONZALEZ did encourage pt to work w/therapy while in the hospital and also educated on importance of getting OOB and ambulating in room, as able. She voices understanding. Order placed for [facility]: SN, PT/OT, and SW, if available. cathleen Pagan shampoo assistant to send referrals. Pt provided w/pulse ox to take home. She states is familiar w/using this and voices appreciation. Avril HERNDONN FLYNN GONZALEZ
--- NOTE | 2024-06-16 10:33 | PN_ITS ---
Subjective Subjective Patient seen and examined. She complained of feeling short of breath still. She was on room air. She also complained of occasional chest pain, which she says had been worked up extensively in the past. She admits to still wheezing. Review of systems is otherwise negative. She admits to still smoking, though she says she will try to quit. Objective Data Objective Data Vital Signs: Vital Signs Temp Pulse Resp BP Pulse Ox O2 Del Method O2 Flow Rate 98.6 F 125 H 20 H 122/80 H 95 Room Air 2 06/16/24 04:00 06/16/24 07:20 06/16/24 07:20 06/16/24 07:00 06/16/24 07:20 06/16/24 07:20 06/16/24 04:00 FiO2 06/15/24 14:00 Oxygen Flow Rate (L/min) 2 Oxygen Delivery Method Room Air Weight: 142 lb 3.17 oz Body Mass Index (BMI) 21.6 Intake & Output: Intake and Output for Last 24 Hours 06/14/24 06/15/24 06/16/24 23:59 23:59 23:59 Intake Total 568.46 / 580.76 3947.89 / 3947.89 150 / 150 Output Total 300 / 300 150 / 150 200 / 200 Balance 268.46 / 280.76 3797.89 / 3797.89 -50 / -50 Lab / Micro Data 06/16/24 08:45 06/16/24 08:45 Labs: Laboratory Results - last 24 hr 06/15/24 05:12: Free T4 1.29 06/15/24 16:40: Troponin I High Sens 5 06/15/24 18:50: Troponin I High Sens 5 06/15/24 22:30: Troponin I High Sens 6 06/16/24 08:45: WBC 15.8 H, RBC 4.28, Hgb 13.8, Hct 40.9, MCV 95.6, MCH 32.2 H, MCHC 33.7, RDW Std Deviation 51.2 H, RDW Coeff of Heath 14.9 H, Plt Count 113 L, MPV 10.5, Immature Gran % (Auto) 0.800, Neut % (Auto) 87.0 H, Lymph % (Auto) 6.3 L, [place] % (Auto) 5.6, Eos % (Auto) 0.1, Baso % (Auto) 0.2, Absolute Neuts (auto) 13.7 H, Absolute Lymphs (auto) 1.00, Nucleated RBC % 0, Sodium 142, Potassium 4.1, Chloride 115 H, Carbon Dioxide 22.0, Anion Gap 5, BUN 25 H, Creatinine 0.59, Estim Creat Clear Calc 99.73, Est GFR (MDRD) Af Amer 133, Est GFR (MDRD) Non-Af 110, BUN/Creatinine Ratio 42.6 H, Glucose 115 H, Calcium 8.8 Micro: Microbiology 06/14/24 17:05 Mucosa - Nose Respiratory Panel (PCR) - Final Parainfluenza 3 06/14/24 17:00 Urine, Clean Catch Legionella Antigen - Final 06/14/24 17:00 Urine, Clean Catch Streptococcus pneumoniae Antigen (M - Final 06/14/24 12:21 Mucosa - Nose SARS-CoV-2, Influenza & RSV (PCR) - Final Physical Exam Const alert and oriented x3 Constitutional Narrative: flat affect General Appearance: cooperative HEENT normocephalic, head/scalp atraumatic, moist oral mucous membranes and oropharynx normal Eyes PERRL and EOMs intact bilaterally Neck no lymphadenopathy and supple Lymph Lymphatic: no lymphadenopathy noted Resp Resp Narrative: mildly diminished breath sounds bibasally, few bilateral crackles. On room air. Cardio regular rhythm, S1 normal heart sound, S2 normal heart sound and no murmurs Cardio Narrative: tachycardic GI normal to inspection, nondistended, normoactive bowel sounds, soft to palpation, non-tender and non-distended Extremity normal capillary refill, no clubbing, cyanosis or edema and no calf tenderness General Extremity: no tenderness to palpation of joints or extremities Skin General Skin Exam: no breakdown Neuro CN's II-XII intact bilaterally, no focal motor deficits and no sensory deficits noted Motor Exam: general weakness Psych thought process normal and cooperative Mood & Affect: flat affect Assessment & Plan Assessment/Plan (1) Pneumonia: (2) COPD exacerbation: PLAN: Plan #HYpoxia due to COPD exacerbation and probable community acquired pneumonia * remains on room air, though she does complain of shortness of breath. * CXR showed a right pleural effusion which was present on previous imaging * CTA chest showed no PE, thoracic aneurysm or dissection, with posterior right pleural effusion being unchanged; ti showed centrilobular cysts and bullous emphysema in the right middle and right lower lobe with chronic prominent subpleural atelectasis with air bronchograms in the posterior surface of the right lower lobe. * covid was negative. Respiratory panel negative * continue IV levaquin and iV solumedrol * breathing treatment with bronchodilators * titrate oxygen to maintain sats >90% #Chest pain * she complained of chest pain yesterday. Troponins were negative and EKG showed no acute ST changes * she says she has had chest pain like this in the past and she has had an extensive workup done for it which was all negative * she did have CTA of the chest on 06/14/2024 which was negative for any evidence of PE * #Acute encephalopathy * likely due to COPD exacerbation and community acquired pneumonia * management as above * resolved. * #Low TSH * TSH is low at 0.28. Free T4 was WNL, so this is likely a subclinical hyperthyroidism * will benefit from repeat labs on outpatient basis once medically stable. * #GERD; on PPI #Nicotine dependence: quit a few days prior to admission. Nicotine patch 21mg daily. Counseled to continue cessation. DVT prophylaxis; SCDs. Charges/Coding Visit Charges Inpatient E&M: 61233 Subs Hosp L2
--- NOTE | 2024-06-16 10:54 | CASEMGMT ---
Addendum entered by Latasha Hua 06/16/24 11:00: [facility] declined d/t staffing. Latasha Hua DC Planning Asst. Original Note: referral sent to [facility]. They declined d/t being [id number]. Referral sent to [facility]. Latasha Hua DC Planning Asst.
[2024-06-16] MEDS: proCHLORPERazine 10 MG/2 ML Vial IV (11:40)
--- NOTE | 2024-06-16 11:59 | CASEMGMT ---
Addendum entered by Latasha Hua 06/19/24 11:22: All have declined. RN CM notified. Latasha Hua DC Planning Asst. Original Note: HH referral sent to , [facility], and [facility]. Latasha Hua DC Planning Asst.
--- NOTE | 2024-06-16 12:54 | CASEMGMT ---
SW followed up with patient and finalized Healthcare Power of Receptionist Doctor'S Office. Copies were made and given to patient along with original. SW also placed a copy in patient's chart. Romelia BALDWIN
--- NOTE | 2024-06-16 13:39 | CASEMGMT ---
Addendum entered by Kailey Del Real 06/16/24 16:20: No [facility] agencies able to accept pt so far. FLYNN GONZALEZ to room. Pt in bed w/HOB elevated. She was made aware and discussed possibility of her being medically ready to discharge over the weekend. She states she did get up to the chair today w/min staff assist and did not need to use a walker. She states she thinks she will be okay @ home alone once she is breathing better and that she can check w/her daughter to see if she could come assist her, if needed. Call was placed to [email or web address] [facility]. She states will take a look on Wednesday to see if they have had any opening/availability. cathleen Pagan assistant wrestling coach, also states can f/u on this on Wednesday. Addendum entered by Kailey Del Real 06/16/24 15:59: No return call received from [facility]. FLYNN GONZALEZ called [facility] to inquire about referral before they closed for today. No answer. Addendum entered by Kailey Del Real 06/16/24 15:28: [facility] and [facility] unable to accept pt. Original Note: FLYNN GONZALEZ NOTE: FLYNN GONZALEZ spoke w/Tena @ [facility]. She states she has received the referral, but has not heard back yet if they are able to accept pt. She was provided w/this FLYNN GONZALEZ's contact # and will call back once she has response. Avril BURRELL RN, CM
--- NOTE | 2024-06-16 15:21 | CHAPLAIN ---
Type of Pastoral Visit ___ Initial Visit ___ Follow-up Visit ___ On-call Visit ___ General Patient Visit ___ Spiritual Assessment ___ Family Conference ___ Bereavement ___ Rapid Response ___ Code Blue ___ Other (describe below) Pastoral Care Referral From ___ Patient ___ Family ___ Nurse ___ Physician ___ Founder ___ Scuba Diving Instructor ___ Other (describe below) Sacrament/Intervention ___ Active listening ___ Anointing ___ Moravian ___ Bereavement ___ Communion ___ Chen exploration ___ ___ Life review ___ Prayer ___ Reconciliation ___ Sacrament of Sick ___ Supportive presence ___ Wedding ___ Other (describe below) Pastoral Comments three attempts made today to see this patient; pt is occupied by medical team, then therapy team, and then is sleeping with a request to not be disturbed
--- NOTE | 2024-06-16 16:18 | CPS ---
Pt started having a coughing fit and audibly wheezing. Told pt this RT had a breathing treatment for her. Pt states she could not take treatment at this time. RT strongly encouraged pt that she needed the treatment or she might need to go back on bipap. PT appeared agitated and started raising her voice to this RT, stating she was going to talk to administration about RT. RN and nurse aid aware of this.
[2024-06-16] MEDS: MELATONIN 3 MG TABLET PO (21:00)
[2024-06-16] MEDS: Gabapentin 600 MG Tablet PO (21:00)
--- NOTE | 2024-06-16 23:16 | CPS ---
Per RN patient attempted to wear the BIPAP and it did not go well. The patient is very anxious at baseline however she was also unable to tolerate the BIPAP due to feeling claustrophobic. Patient also made aware that if the BIPAP cannot be tolerated and ventilation is required, given her full code status, the next form of ventilation therapy would likely be intubation and to be placed on a vent. Patient is willing to be intubated if that need should arise.
[2024-06-16] MEDS: dexMEDEtomidine 400 MCG in 0.9% Normal Saline (100mL Bag) 96 ML 7.7 MCG CONT INF (23:46)
--- NOTE | 2024-06-16 23:58 | PCM.HOSP.N ---
Hospitalist Note Patient with increased anxiety, dyspneic sensation, ongoing tachypnea. Precedex restarted. Will obtain ABG to be cautious. Does seem to improve short-term of note following hydroxyzine but only lasts per staff report ~ 1 hour.
[2024-06-17] VITALS (34 sets, daily range): BP systolic 92–160; BP diastolic 59–85; PULSE 76–137; RESP 12–29; TEMP 36.6–36.8; O2SAT 79–100
[2024-06-17 00:14] LABS: Allen Test Positive; Base Excess -1 mmol/L (-2 to +2); Bicarbonate 22.6 mmol/L (22-26); Blood Gas Specimen Type ART; Mode Not entered; O2 Delivery Device Cannula; PO2 83 mmHG (75-100); SITE R Radial; SO2 97 % (95-99); Total Carbon Dioxide 24 mmol/L; pCO2 32.2 mmHg (35-45); pH 7.46 (7.35-7.45)
[2024-06-17] MEDS: Ipratropium/Albuterol Sulfate 3 ML AMPUL.NEB INHALATION ×6 (03:41→22:28)
[2024-06-17 04:24] LABS: Absolute Lymphocyte Count 0.94 X10^3/uL (0.83-4.51); Absolute Neutrophil Count 9.4 X10^3/uL (2.0-7.7); Basophil# 0.02 X10^3/uL; Basophil% 0.2 % (0-1); Eosinophil# 0.02 X10^3/uL; Eosinophils% 0.2 % (0-5); Hematocrit 39.3 % (37-47); Hemoglobin 13.3 g/dL (12.0-15.0); Lymphocyte # 0.94 X10^3/ul (0.83-4.51); Lymphocyte % 8.2 % (19-41); Mean Corp Hgb Conc 33.8 g/dL (32-36); Mean Corpuscular Hgb 32.4 pg (27.0-32.0); Mean Corpuscular Volume 95.9 fL (81-99); Mean Platelet Vol. 10.1 fl (6.2-12.0); Monocyte% 9.5 % (0-10); NRBC Flagged by Analyzer 0 % (0-5); Neutrophil # 9.39 X10^3/uL (2.7-7.7); Neutrophil % 81.5 % (47-70); POSITIVE COUNT YES; Platelet Count 91 K/mm3 (150-450); RBC Distribution Width CV 14.8 % (11.6-14.6); RBC Distribution Width SD 51.8 fl (35.1-43.9); White Blood Count 11.5 K/mm3 (4.4-11.0)
[2024-06-17 04:31] LABS: Differential Indicated SCAN CRITERIA MET
[2024-06-17 04:37] LABS: Anion Gap 5 (5-15); BUN 26 mg/dL (7-18); BUN/Creat Ratio 55.4 RATIO (10-20); Calcium,Total 8.6 mg/dL (8.5-10.1); Chloride 113 mmol/L (98-107); Creatinine, Serum 0.47 mg/dL (0.55-1.02); EST Glomerular Filtration Rate 143 mL/min (>60); Est Glom Filt Rate - Afr Amer 173 mL/min (>60); Estimated Creatinine Clearance 125.19 ml/min; Glucose 138 mg/dL (74-106); Potassium 4.3 mmol/L (3.5-5.1); Sodium Level 141 mmol/L (136-145)
[2024-06-17 05:25] LABS: Differential Comment SCANNED; Platelet Estimate SLT DEC (ADEQ)
[2024-06-17] MEDS: guaiFENesin 1,200 MG Tablet 1200 MG PO ×2 (09:40→20:37)
[2024-06-17] MEDS: Senna/Docusate Sodium 1 Tablet 2 TABLET PO ×2 (09:40→20:36)
[2024-06-17] MEDS: Oseltamivir Phosphate 75 MG Capsule PO ×2 (09:40→20:36)
[2024-06-17] MEDS: Pantoprazole Sodium 40 MG Tablet PO (09:40)
[2024-06-17] MEDS: oxyCODONE 5 MG Tablet PO ×3 (09:45→20:43)
[2024-06-17] MEDS: Acetaminophen 325 MG Tablet 650 MG PO ×2 (09:45→16:24)
[2024-06-17] MEDS: levoFLOXacin IV 750 MG/150 ML BAG 100 MG IV (09:51)
--- NOTE | 2024-06-17 10:35 | PN_ITS ---
Subjective Subjective Patient seen and examined. She complained of feeling short of breath. She was however on room air. She did say she felt her symptoms were due to her anxiety. Review of systems is otherwise negative. Objective Data Objective Data Vital Signs: Vital Signs Temp Pulse Resp BP Pulse Ox O2 Del Method O2 Flow Rate 98 F 92 18 100/72 93 Room Air 2 06/17/24 05:00 06/17/24 07:10 06/17/24 07:10 06/17/24 07:00 06/17/24 07:10 06/17/24 07:10 06/17/24 02:00 FiO2 06/16/24 23:14 Oxygen Flow Rate (L/min) 2 Oxygen Delivery Method Room Air Weight: 142 lb 3.17 oz Body Mass Index (BMI) 21.6 Intake & Output: Intake and Output for Last 24 Hours 06/15/24 06/16/24 06/17/24 23:59 23:59 23:59 Intake Total 3947.89 / 3947.89 1450 / 1451.8 178.82 / 178.82 Output Total 150 / 150 600 / 750 150 / 150 Balance 3797.89 / 3797.89 850 / 701.8 28.82 / 28.82 Lab / Micro Data 06/17/24 04:11 06/17/24 04:11 Labs: Laboratory Results - last 24 hr 06/17/24 04:11: WBC 11.5 H, RBC 4.10 L, Hgb 13.3, Hct 39.3, MCV 95.9, MCH 32.4 H , MCHC 33.8, RDW Std Deviation 51.8 H, RDW Coeff of Heath 14.8 H, Plt Count 91 L, MPV 10.1, Immature Gran % (Auto) 0.400, Neut % (Auto) 81.5 H, Lymph % (Auto) 8.2 L, [place] % (Auto) 9.5, Eos % (Auto) 0.2, Baso % (Auto) 0.2, Absolute Neuts (auto) 9.4 H, Absolute Lymphs (auto) 0.94, Nucleated RBC % 0, Differential Comment SCANNED, Platelet Estimate SLT DEC, Sodium 141, Potassium 4.3, Chloride 113 H, Carbon Dioxide 23.0, Anion Gap 5, BUN 26 H, Creatinine 0.47 L, Estim Creat Clear Calc 125.19, Est GFR (MDRD) Af Amer 173, Est GFR (MDRD) Non-Af 143, B UN/Creatinine Ratio 55.4 H, Glucose 138 H, Calcium 8.6 Micro: Microbiology 06/14/24 14:30 Blood Culture (Wb) - Left Wrist Blood Culture - Preliminary No growth in 48 hours. 06/14/24 14:30 Blood Culture (Wb) - Anticubital Left Blood Culture - Preliminary No growth in 48 hours. 06/14/24 17:05 Mucosa - Nose Respiratory Panel (PCR) - Final Parainfluenza 3 06/14/24 17:00 Urine, Clean Catch Legionella Antigen - Final 06/14/24 17:00 Urine, Clean Catch Streptococcus pneumoniae Antigen (M - Final 06/14/24 12:21 Mucosa - Nose SARS-CoV-2, Influenza & RSV (PCR) - Final ABG Data ABG results: ABG 06/17/24 00:10 Specimen Type ART Sample Site R Radial pH 7.46 H Bicarbonate Actual 22.6 Total CO2 24 Base Excess -1 O2 Saturation 97 O2 % 2.0 ABG pCO2 32.2 L ABG pO2 83 [place] Test Positive O2 Delivery Device Cannula Vent Mode Not entered Physical Exam Const alert, oriented x3 and no apparent distress Constitutional Narrative: flat affect General Appearance: cooperative HEENT normocephalic, head/scalp atraumatic, moist oral mucous membranes and oropharynx normal Eyes PERRL and EOMs intact bilaterally Neck no lymphadenopathy and supple Lymph Lymphatic: no lymphadenopathy noted Resp normal respiratory effort, normal air movement and clear to auscultation bilaterally Resp Narrative: mildly diminished breath sounds bibasally, few bilateral crackles. On room air. Cardio regular rate, regular rhythm, S1 normal heart sound, S2 normal heart sound and no murmurs GI normal to inspection, nondistended, normoactive bowel sounds, soft to palpation, non-tender and non-distended Extremity normal capillary refill, no clubbing, cyanosis or edema and no calf tenderness General Extremity: no tenderness to palpation of joints or extremities Skin General Skin Exam: no breakdown Neuro CN's II-XII intact bilaterally, no focal motor deficits and no sensory deficits noted Motor Exam: general weakness Psych thought process normal and cooperative Psych Narrative: lethargic, flat affect. Mood & Affect: flat affect Assessment & Plan Assessment/Plan (1) Pneumonia: (2) COPD exacerbation: PLAN: Plan #HYpoxia due to COPD exacerbation and probable community acquired pneumonia * remains on room air, though she does complain of shortness of breath. * CXR showed a right pleural effusion which was present on previous imaging * CTA chest showed no PE, thoracic aneurysm or dissection, with posterior right pleural effusion being unchanged; ti showed centrilobular cysts and bullous emphysema in the right middle and right lower lobe with chronic prominent subpleural atelectasis with air bronchograms in the posterior surface of the right lower lobe. * covid was negative. Respiratory panel negative * continue IV levaquin and iV solumedrol * still complains of shortness of breath and thinks it is related to anxiety. She was started on precedex drip again overnight for the anxiety. will dc precedex drip and add on PO ativan prn for anxiety * breathing treatment with bronchodilators * titrate oxygen to maintain sats >90% #Chest pain * resolved. Chest pain did not recur overnight. * Troponins have been negative and EKG showed no acute ST changes. * she says she has had chest pain like this in the past and she has had an extensive workup done for it which was all negative * she did have CTA of the chest on 06/14/2024 which was negative for any evidence of PE * * #Acute encephalopathy * likely due to COPD exacerbation and community acquired pneumonia * management as above * resolved. * #Low TSH * TSH is low at 0.28. Free T4 was WNL, so this is likely a subclinical hyperthyroidism * will benefit from repeat labs on outpatient basis once medically stable. * #GERD; on PPI #Nicotine dependence: quit a few days prior to admission. Nicotine patch 21mg daily. Counseled to continue cessation. DVT prophylaxis; SCDs. Disposition: anticipate dc over the next 1-2 days. Charges/Coding Visit Charges Inpatient E&M: 62159 Subs Hosp L2
[2024-06-17] MEDS: hydrOXYzine 10 MG Tablet PO (12:09)
[2024-06-17] MEDS: LORazepam 1 MG Tablet PO ×2 (12:09→22:42)
--- NOTE | 2024-06-17 15:06 | CASEMGMT ---
RN CM NOTE: Green sheet placed on pt's chart for instructions if pt qualifies for Home O2. Avril HERNDONN RN CM
[2024-06-17] MEDS: Gabapentin 600 MG Tablet PO (20:37)
[2024-06-18] VITALS (30 sets, daily range): BP systolic 104–166; BP diastolic 67–98; PULSE 81–147; RESP 14–32; TEMP 35.9–36.8; O2SAT 22–100
[2024-06-18] MEDS: oxyCODONE 5 MG Tablet PO ×4 (02:25→19:49)
[2024-06-18] MEDS: Acetaminophen 325 MG Tablet 650 MG PO ×2 (02:25→08:12)
[2024-06-18] MEDS: hydrOXYzine 10 MG Tablet PO ×2 (02:29→15:15)
[2024-06-18 04:15] LABS: Absolute Lymphocyte Count 0.94 X10^3/uL (0.83-4.51); Absolute Neutrophil Count 11.4 X10^3/uL (2.0-7.7); Basophil# 0.05 X10^3/uL; Basophil% 0.4 % (0-1); Eosinophil# 0.01 X10^3/uL; Eosinophils% 0.1 % (0-5); Hematocrit 44.2 % (37-47); Lymphocyte # 0.94 X10^3/ul (0.83-4.51); Lymphocyte % 6.7 % (19-41); Mean Corp Hgb Conc 33.9 g/dL (32-36); Mean Corpuscular Hgb 32.6 pg (27.0-32.0); Mean Corpuscular Volume 96.1 fL (81-99); Mean Platelet Vol. 9.8 fl (6.2-12.0); Monocyte% 11.3 % (0-10); NRBC Flagged by Analyzer 0 % (0-5); Neutrophil # 11.42 X10^3/uL (2.7-7.7); Neutrophil % 80.9 % (47-70); POSITIVE DIFFERENTIAL YES; Platelet Count 105 K/mm3 (150-450); RBC Distribution Width CV 14.9 % (11.6-14.6); RBC Distribution Width SD 52.3 fl (35.1-43.9); White Blood Count 14.1 K/mm3 (4.4-11.0)
[2024-06-18 04:29] LABS: Anion Gap 7 (5-15); BUN 30 mg/dL (7-18); BUN/Creat Ratio 48.2 RATIO (10-20); Calcium,Total 9.2 mg/dL (8.5-10.1); Chloride 107 mmol/L (98-107); Creatinine, Serum 0.62 mg/dL (0.55-1.02); EST Glomerular Filtration Rate 103 mL/min (>60); Est Glom Filt Rate - Afr Amer 125 mL/min (>60); Estimated Creatinine Clearance 94.91 ml/min; Glucose 116 mg/dL (74-106); Potassium 4.7 mmol/L (3.5-5.1); Sodium Level 139 mmol/L (136-145)
[2024-06-18 04:47] LABS: Differential Indicated SCAN CRITERIA MET
[2024-06-18] MEDS: LORazepam 1 MG Tablet PO ×2 (05:12→15:14)
[2024-06-18 05:23] LABS: Differential Comment SCANNED; Reactive Lymphocyte 2+
[2024-06-18] MEDS: guaiFENesin 1,200 MG Tablet 1200 MG PO ×2 (08:05→21:58)
[2024-06-18] MEDS: Senna/Docusate Sodium 1 Tablet 2 TABLET PO ×2 (08:05→21:58)
[2024-06-18] MEDS: Oseltamivir Phosphate 75 MG Capsule PO ×2 (08:06→21:58)
[2024-06-18] MEDS: Pantoprazole Sodium 40 MG Tablet PO (08:10)
[2024-06-18] MEDS: Ensure Plus High Protein 120 ML LIQUID PO (08:10)
[2024-06-18] MEDS: levoFLOXacin IV 750 MG/150 ML BAG 100 MG IV (08:12)
[2024-06-18] MEDS: Metoprolol Tartrate 25 MG Tablet 12.5 MG PO ×2 (10:00→21:58)
[2024-06-18] MEDS: Lactulose 20 GM/30 ML UDC 10 GM PO (10:01)
[2024-06-18] MEDS: Ipratropium/Albuterol Sulfate 3 ML AMPUL.NEB INHALATION ×5 (10:12→23:06)
--- NOTE | 2024-06-18 12:15 | PN_ITS ---
Subjective Subjective Patient seen and examined. She still complains of weakness and shortness of breath. She says she still feels very anxious. Review of systems is otherwise negative. Objective Data Objective Data Vital Signs: Vital Signs Temp Pulse Resp BP Pulse Ox O2 Del Method O2 Flow Rate 97.8 F 122 H 27 H 121/71 H 96 Room Air 2 06/18/24 08:00 06/18/24 10:13 06/18/24 10:13 06/18/24 10:00 06/18/24 10:13 06/18/24 10:13 06/17/24 16:00 FiO2 06/17/24 17:22 Oxygen Flow Rate (L/min) 2 Oxygen Delivery Method Room Air Weight: 142 lb 3.17 oz Body Mass Index (BMI) 21.6 Intake & Output: Intake and Output for Last 24 Hours 06/16/24 06/17/24 06/18/24 23:59 23:59 23:59 Intake Total 1450 / 1451.8 540.00 / 540.00 350 / 350 Output Total 600 / 750 325 / 325 160 / 160 Balance 850 / 701.8 215.00 / 215.00 190 / 190 Lab / Micro Data 06/18/24 04:06 06/18/24 04:06 Labs: Laboratory Results - last 24 hr 06/18/24 04:06: WBC 14.1 H, RBC 4.60, Hgb 15.0, Hct 44.2, MCV 96.1, MCH 32.6 H, MCHC 33.9, RDW Std Deviation 52.3 H, RDW Coeff of Heath 14.9 H, Plt Count 105 L, MPV 9.8, Immature Gran % (Auto) 0.600, Neut % (Auto) 80.9 H, Lymph % (Auto) 6.7 L, [place] % (Auto) 11.3 H, Eos % (Auto) 0.1, Baso % (Auto) 0.4, Absolute Neuts (auto) 11.4 H, Absolute Lymphs (auto) 0.94, Nucleated RBC % 0, Differential Comment SCANNED, Diff Path Review May foll, Reactive Lymphocytes 2+, Sodium 139, Potassium 4.7, Chloride 107, Carbon Dioxide 25.0, Anion Gap 7, BUN 30 H, Creatinine 0.62, Estim Creat Clear Calc 94.91, Est GFR (MDRD) Af Amer 125, Est GFR (MDRD) Non-Af 103, BUN/Creatinine Ratio 48.2 H, Glucose 116 H, Calcium 9.2 Micro: Microbiology 06/14/24 14:30 Blood Culture (Wb) - Left Wrist Blood Culture - Preliminary No growth in 48 hours. 06/14/24 14:30 Blood Culture (Wb) - Anticubital Left Blood Culture - Preliminary No growth in 48 hours. 06/14/24 17:05 Mucosa - Nose Respiratory Panel (PCR) - Final Parainfluenza 3 06/14/24 17:00 Urine, Clean Catch Legionella Antigen - Final 06/14/24 17:00 Urine, Clean Catch Streptococcus pneumoniae Antigen (M - Final 06/14/24 12:21 Mucosa - Nose SARS-CoV-2, Influenza & RSV (PCR) - Final Physical Exam Const alert, oriented x3 and no apparent distress Constitutional Narrative: flat affect General Appearance: cooperative HEENT normocephalic, head/scalp atraumatic, moist oral mucous membranes and oropharynx normal Eyes PERRL and EOMs intact bilaterally Neck no lymphadenopathy and supple Lymph Lymphatic: no lymphadenopathy noted Resp Resp Narrative: mildly diminished breath sounds bibasally, few bilateral crackles. On room air. tachypnea Cardio regular rhythm, S1 normal heart sound, S2 normal heart sound and no murmurs Cardio Narrative: tachycardia GI normal to inspection, nondistended, normoactive bowel sounds, soft to palpation, non-tender and non-distended Extremity normal capillary refill, no clubbing, cyanosis or edema and no calf tenderness General Extremity: no tenderness to palpation of joints or extremities Skin General Skin Exam: no breakdown Neuro CN's II-XII intact bilaterally, no focal motor deficits and no sensory deficits noted Motor Exam: general weakness Psych Psych Narrative: anxiety Assessment & Plan Assessment/Plan (1) Pneumonia: (2) COPD exacerbation: PLAN: Plan #HYpoxia due to COPD exacerbation and probable community acquired pneumonia * remains on room air, though she does complain of shortness of breath. She is also very anxious. * CXR showed a right pleural effusion which was present on previous imaging * CTA chest showed no PE, thoracic aneurysm or dissection, with posterior right pleural effusion being unchanged; ti showed centrilobular cysts and bullous emphysema in the right middle and right lower lobe with chronic prominent subpleural atelectasis with air bronchograms in the posterior surface of the right lower lobe. * covid was negative. Respiratory panel negative * continue IV levaquin and IV solu-medrol * still complains of shortness of breath and thinks it is related to anxiety. * breathing treatment with bronchodilators * titrate oxygen to maintain sats >90% #Chest pain * resolved. Chest pain did not recur overnight. * Troponins have been negative and EKG showed no acute ST changes. * she says she has had chest pain like this in the past and she has had an extensive workup done for it which was all negative * she did have CTA of the chest on 06/14/2024 which was negative for any evidence of PE * #Sinus tachycardia * HR is up to the 120s. * it gets worse when she gets anxious * CTA chest was negative for PE. She does remain on room air. * CT chest showed right pleural effusion with consolidation of right lower lobe from February 2022 also. * Started on PO metoprolol 12.5mg bid. * #Acute encephalopathy * likely due to COPD exacerbation and community acquired pneumonia * management as above * resolved. * #Low TSH * TSH is low at 0.28. * Free T4 was WNL, so this is likely a subclinical hyperthyroidism * will benefit from repeat labs on outpatient basis once medically stable. * #GERD: on PPI #Nicotine dependence: * quit a few days prior to admission. * Nicotine patch 21mg daily. Counseled to continue cessation. DVT prophylaxis; SCDs. Disposition: anticipate dc over the next 1-2 days. Charges/Coding Visit Charges Inpatient E&M: 08727 Subs Hosp L2
--- NOTE | 2024-06-18 15:07 | ECHOCS_ITS ---
Reason For Study: ARRHYTHMIA Procedure This was a 2D Doppler, Color Flow transthoracic echocardiogram. The study was technically difficult. The patient was scanned supine. Contrast injection was performed. Exam performed portable in ICU/CCU. Left Ventricle Normal LV size. The estimated ejection fraction is 60 %. No evidence for diastolic dysfunction. No regional wall motion abnormalities noted. Right Ventricle Normal RV size. Normal systolic function. Atria The left and right atria are normal. No doppler evidence for ASD. Mitral Valve There is no mitral valve stenosis. Trivial mitral valve insufficiency. Tricuspid Valve There is no tricuspid stenosis. Trivial tricuspid valve insufficiency. Unable to estimate RV systolic pressure due to insufficient tricuspid regurgitant envelope. Aortic Valve Trisinus/trileaflet aortic valve. There is no aortic stenosis. No aortic valve insufficiency. Pulmonic Valve There is no pulmonic valvular stenosis. No pulmonic valve insufficiency. Great Vessels Normal aortic root. Pericardium/Pleural No pericardial effusion. Medication Diluted definity 2.5ml given slow IV push to enhance endocardial definition. MMode/2D Measurements & Calculations LVIDd: 4.1 cm IVSd: 1.0 cm LVOT diam: 2.0 cm LVIDs: 2.8 cm LVPWd: 1.0 cm RVDd: 3.1 cm FS: 32.6 % LVOT area: 3.1 cm2 LAV(MOD-bp): 15.5 ml LVAd ap4: 27.3 cm2 LVAd ap2: 27.0 cm2 LAV(MOD-bp) Indexed: 8.9 ml/m2 LVLd ap4: 7.6 cm LVLd ap2: 7.5 cm LAV(MOD-sp2): 13.9 ml EDV(MOD-sp4): 81.6 ml EDV(MOD-sp2): 81.8 ml LAV(MOD-sp4): 14.8 ml EDV(sp4-el): 83.1 ml EDV(sp2-el): 81.9 ml LVAs ap4: 20.1 cm2 LVAs ap2: 17.2 cm2 LVLs ap4: 7.0 cm LVLs ap2: 6.4 cm ESV(MOD-sp4): 48.6 ml ESV(MOD-sp2): 39.2 ml ESV(sp4-el): 48.9 ml ESV(sp2-el): 39.3 ml EF(MOD-sp4): 40.4 % EF(MOD-sp2): 52.1 % EF(sp4-el): 41.1 % SV(MOD-sp4): 33.0 ml SV(MOD-sp2): 42.6 ml SV(sp4-el): 34.2 ml SI(MOD-sp4): 18.9 ml/m2 SI(MOD-sp2): 24.4 ml/m2 Ao sinus diam: 3.3 cm LA A4 area: 8.7 cm2 LA dimension(2D): 3.4 cm TAPSE: 1.4 cm RA A4 area: 7.2 cm2 Time Measurements MV dec time: 0.20 sec Doppler Measurements & Calculations MV E max gigi: 46.4 cm/sec Lat Peak E' Gigi: 11.2 cm/sec Med Peak E' Gigi: 7.4 cm/sec MV A max gigi: 60.1 cm/sec E/E' lat: 4.2 E/E' med: 6.2 MV E/A: 0.77 MV dec slope: 235.1 cm/sec2 Ao V2 max: 101.9 cm/sec LV V1 max: 88.2 cm/sec Ao max P.2 mmHg LV V1 max P.1 mmHg Ao V2 mean: 76.3 cm/sec LV V1 mean P.6 mmHg Ao mean P.5 mmHg LV V1 mean: 61.2 cm/sec Ao V2 VTI: 17.2 cm LV V1 VTI: 13.1 cm AV (velocity ratio): 0.76 FLORENTIN(I,D): 2.4 cm2 FLORENTIN(V,D): 2.7 cm2 SV(LVOT): 40.9 ml PA V2 max: 89.8 cm/sec TR max gigi: 250.5 cm/sec TR max P.1 mmHg ECHO/Echo Complete W/ Contrast Interpretation Summary The estimated ejection fraction is 60 %. No evidence for diastolic dysfunction. Trivial mitral valve insufficiency. Ordering Physician: Rain Moreno Performed By: Jordan, Aleyda, RDCS
[2024-06-18] MEDS: proCHLORPERazine 10 MG/2 ML Vial IV (17:01)
[2024-06-18] MEDS: MELATONIN 3 MG TABLET PO (19:48)
[2024-06-18] MEDS: Ondansetron 4 MG/2 ML Vial IV (20:02)
[2024-06-18] MEDS: 0.9% Saline Lock 10 ML Syringe IV (20:02)
[2024-06-18] MEDS: QUEtiapine 25 MG Tablet PO (21:58)
[2024-06-18] MEDS: Gabapentin 600 MG Tablet PO (21:58)
[2024-06-19] VITALS (26 sets, daily range): BP systolic 101–157; BP diastolic 49–99; PULSE 88–139; RESP 16–35; TEMP 36.6–36.9; O2SAT 87–98; BMI 21.0
[2024-06-19] MEDS: Ipratropium/Albuterol Sulfate 3 ML AMPUL.NEB INHALATION ×4 (02:15→23:24)
[2024-06-19 06:42] LABS: Absolute Lymphocyte Count 1.55 X10^3/uL (0.83-4.51); Basophil# 0.06 X10^3/uL; Basophil% 0.5 % (0-1); Eosinophil# 0.68 X10^3/uL; Eosinophils% 5.2 % (0-5); Hemoglobin 15.4 g/dL (12.0-15.0); Lymphocyte # 1.55 X10^3/ul (0.83-4.51); Lymphocyte % 11.9 % (19-41); Mean Corp Hgb Conc 34.2 g/dL (32-36); Mean Corpuscular Hgb 32.4 pg (27.0-32.0); Mean Corpuscular Volume 94.7 fL (81-99); Mean Platelet Vol. 9.7 fl (6.2-12.0); NRBC Flagged by Analyzer 0 % (0-5); Neutrophil # 9.03 X10^3/uL (2.7-7.7); Neutrophil % 68.9 % (47-70); POSITIVE DIFFERENTIAL YES; Platelet Count 103 K/mm3 (150-450); RBC Distribution Width SD 52.6 fl (35.1-43.9); Red Blood Count 4.75 M/mm3 (4.2-5.4); White Blood Count 13.1 K/mm3 (4.4-11.0)
[2024-06-19 06:50] LABS: Differential Indicated SCAN CRITERIA MET
[2024-06-19 06:56] LABS: Anion Gap 6 (5-15); BUN 33 mg/dL (7-18); BUN/Creat Ratio 58.3 RATIO (10-20); Calcium,Total 9.1 mg/dL (8.5-10.1); Chloride 108 mmol/L (98-107); Creatinine, Serum 0.57 mg/dL (0.55-1.02); EST Glomerular Filtration Rate 115 mL/min (>60); Est Glom Filt Rate - Afr Amer 139 mL/min (>60); Estimated Creatinine Clearance 101.45 ml/min; Glucose 104 mg/dL (74-106); Potassium 4.2 mmol/L (3.5-5.1); Sodium Level 139 mmol/L (136-145)
[2024-06-19] MEDS: levoFLOXacin IV 750 MG/150 ML BAG 100 MG IV (08:01)
[2024-06-19] MEDS: Senna/Docusate Sodium 1 Tablet 2 TABLET PO ×2 (08:01→21:44)
[2024-06-19] MEDS: guaiFENesin 1,200 MG Tablet 1200 MG PO ×2 (08:02→21:45)
[2024-06-19] MEDS: Metoprolol Tartrate 25 MG Tablet 12.5 MG PO ×2 (08:02→21:44)
[2024-06-19] MEDS: QUEtiapine 25 MG Tablet PO ×2 (08:02→21:44)
[2024-06-19] MEDS: Oseltamivir Phosphate 75 MG Capsule PO ×2 (08:02→21:46)
[2024-06-19] MEDS: Pantoprazole Sodium 40 MG Tablet PO (08:02)
[2024-06-19] MEDS: predniSONE 20 MG Tablet 40 MG PO (08:02)
--- NOTE | 2024-06-19 11:17 | CASEMGMT ---
Addendum entered by Mattie Reddy 06/19/24 12:07: [facility] declined HH referral Original Note: Tatianna from [facility] states to this RN CM that they cannot accept the pt d/t being at capacity for [facility] patients. DAMION Pagan manager of financial planning, notified.
--- NOTE | 2024-06-19 11:26 | CASEMGMT ---
Addendum entered by Latasha Hua 06/19/24 15:00: [facility] has accepted. RN CM updated. Latasha Hua DC Planning Asst. Original Note: HH referral sent to [facility]. Latasha Hua DC Planning Asst.
[2024-06-19] MEDS: proCHLORPERazine 10 MG/2 ML Vial IV ×2 (15:11→21:57)
[2024-06-19] MEDS: Acetaminophen 325 MG Tablet 650 MG PO (15:11)
[2024-06-19] MEDS: oxyCODONE 5 MG Tablet PO ×2 (15:12→21:45)
--- NOTE | 2024-06-19 15:23 | CHAPLAIN ---
Type of Pastoral Visit _x__ Initial Visit ___ Follow-up Visit ___ On-call Visit ___ General Patient Visit ___ Spiritual Assessment ___ Family Conference ___ Bereavement ___ Rapid Response ___ Code Blue ___ Other (describe below) Pastoral Care Referral From _x__ Patient _x__ Family ___ Nurse ___ Physician ___ Channel Sales Director ___ Display Trimmer ___ Other (describe below) Sacrament/Intervention ___ Active listening ___ Anointing ___ Alevism ___ Bereavement ___ Communion ___ Chen exploration ___ ___ Life review _x__ Prayer ___ Reconciliation ___ Sacrament of Sick _x__ Supportive presence ___ Wedding ___ Other (describe below) Pastoral Comments attempting to visit with this patient over several days; staff recommended waiting until patient was awake before seeing her as she has had difficulty sleeping; followed the RN today after she gave medications to patient; daughter is in the room; patient is sitting up in the chair; pt is weak and has effort to talk out loud; pt says that she is not well; daughter is helping patient put in her false teeth but this becomes a big effort; offered support and presence; offered compassionate words and hopes for better days; pt did welcome a prayer; offered support to the daughter who acknowledged the offer and stated I'm not even sure what is going to happen, and we are just trying to get her better, so thank you for being here for us;
[2024-06-19 16:16] LABS: Pathologist Review Reviewed
--- NOTE | 2024-06-19 17:07 | PCM.PN.HOSP ---
Reason for Visit Reason for Visit: Diagnoses Pneumonia, unspecified organism (06/14/24) Chronic obstructive pulmonary disease with (acute) exacerbation (06/14/24) Shortness of breath (06/14/24) Subjective Subjective Patient was seen and examined today, she appeared somnolent this morning but was able to answer simple questions appropriately. Patient is on 2 L via nasal cannula at rest. Patient is echocardiogram showed a normal EF, there is no significant valvular heart disease noted Objective Data Objective Data Vital Signs: Vital Signs Temp Pulse Resp BP Pulse Ox O2 Del Method O2 Flow Rate 97.8 F 91 19 H 127/91 H 96 Nasal Cannula 2 06/19/24 12:00 06/19/24 16:00 06/19/24 16:00 06/19/24 16:00 06/19/24 16:00 06/19/24 16:00 06/19/24 16:00 FiO2 25 06/18/24 21:00 Oxygen Flow Rate (L/min) 2 Oxygen Delivery Method Nasal Cannula Weight: 62.8 kg Body Mass Index (BMI) 21.0 Intake & Output: Intake and Output for Last 24 Hours 06/17/24 06/18/24 06/19/24 23:59 23:59 23:59 Intake Total 540.00 / 540.00 350 / 590 390 / 390 Output Total 325 / 325 435 / 435 650 / 650 Balance 215.00 / 215.00 -85 / 155 -260 / -260 Lab / Micro Data 06/19/24 06:32 06/19/24 06:32 Labs: Laboratory Results - last 24 hr 06/18/24 04:06: Diff Path Review Reviewed 06/19/24 06:32: WBC 13.1 H, RBC 4.75, Hgb 15.4 H, Hct 45.0, MCV 94.7, MCH 32.4 H, MCHC 34.2, RDW Std Deviation 52.6 H, RDW Coeff of Heath 15.0 H, Plt Count 103 L, MPV 9.7, Immature Gran % (Auto) 0.500, Neut % (Auto) 68.9, Lymph % (Auto) 11.9 L, [place] % (Auto) 13.0 H, Eos % (Auto) 5.2 H, Baso % (Auto) 0.5, Absolute Neuts (auto) 9.0 H, Absolute Lymphs (auto) 1.55, Nucleated RBC % 0, Diff Path Review September, Sodium 139, Potassium 4.2, Chloride 108 H, Carbon Dioxide 26.0, Anion Gap 6, BUN 33 H, Creatinine 0.57, Estim Creat Clear Calc 101.45, Est GFR (MDRD) Af Amer 139, Est GFR (MDRD) Non-Af 115, BUN/Creatinine Ratio 58.3 H, Glucose 104, Calcium 9.1 Micro: Microbiology 06/14/24 14:30 Blood Culture (Wb) - Anticubital Left Blood Culture - Final No growth in 5 days. 06/14/24 14:30 Blood Culture (Wb) - Left Wrist Blood Culture - Final No growth in 5 days. 06/14/24 17:05 Mucosa - Nose Respiratory Panel (PCR) - Final Parainfluenza 3 06/14/24 17:00 Urine, Clean Catch Legionella Antigen - Final 06/14/24 17:00 Urine, Clean Catch Streptococcus pneumoniae Antigen (M - Final 06/14/24 12:21 Mucosa - Nose SARS-CoV-2, Influenza & RSV (PCR) - Final Radiography Diagnostic Testing: Radiology Impression Echocardiogram 06/18/24 15:07 Interpretation Summary The estimated ejection fraction is 60 %. No evidence for diastolic dysfunction. Trivial mitral valve insufficiency. Ordering Physician: Rain Moreno Performed By: Aleyda Ortega, MIRIAM Physical Exam Const alert, oriented x3 and no apparent distress Constitutional Narrative: Patient appears older than her stated age General Appearance: cooperative, well kempt and well developed Orientation / Consciousness: awake, oriented to person, oriented to place and oriented to time HEENT normocephalic, head/scalp atraumatic and moist oral mucous membranes Eyes PERRL, EOMs intact bilaterally and conjunctivae normal Neck supple, no JVD, thyroid normal and no carotid bruits General: trachea midline Resp normal respiratory effort, no retractions, no use of accessory muscles and clear to auscultation bilaterally Auscultation: Negative for rales, rhonchi or wheezes Cardio regular rate, regular rhythm, S1 normal heart sound, S2 normal heart sound, no murmurs, no rub and no gallops GI normal to inspection, nondistended, normoactive bowel sounds, soft to palpation, non-tender and non-distended Extremity no clubbing, cyanosis or edema Skin no rashes or lesions noted General Skin Exam: no breakdown Neuro oriented x3, CN's II-XII intact bilaterally, moves all extremities, no focal motor deficits and no sensory deficits noted Sensorium / Orientation: awake and alert Speech: speech normal Psych affect normal Assessment & Plan Assessment/Plan (1) Shortness of breath: PLAN: Plan 1. Hypoxia secondary to exacerbation of COPD with an overlie of community-acquired pneumonia-patient is currently on IV Levaquin and IV Solu-Medrol as well as aerosol treatments, pulse ox will be monitored, patient appears stable for transfer to PCU at this time #2 acute exacerbation of COPD-again patient is receiving IV Solu-Medrol and aerosol treatments #3 right lower lobe community-acquired pneumonia-patient is currently on IV Levaquin, I will change the patient over to oral Levaquin starting tomorrow #4 chronic anxiety-complicates care, management, recovery, and prognosis Total clinical time spent by myself addressing the patient's medical issues, reviewing all the data, and collaborating the patient's care team: 35 minutes Charges/Coding Visit Charges Inpatient E&M: 05478 Subs Hosp L2
[2024-06-19] MEDS: MELATONIN 3 MG TABLET PO (21:45)
[2024-06-19] MEDS: Gabapentin 600 MG Tablet PO (21:45)
[2024-06-19] MEDS: LORazepam 1 MG Tablet PO (21:50)
[2024-06-19] MEDS: 0.9% Saline Lock 10 ML Syringe IV (21:57)
[2024-06-20] VITALS (14 sets, daily range): BP systolic 109–122; BP diastolic 63–75; PULSE 88–102; RESP 18–24; TEMP 36.3–36.6; O2SAT 87–95; BMI 20.1
[2024-06-20] MEDS: Ipratropium/Albuterol Sulfate 3 ML AMPUL.NEB INHALATION ×5 (02:29→22:50)
[2024-06-20] MEDS: oxyCODONE 5 MG Tablet PO ×3 (05:28→20:07)
[2024-06-20 05:56] LABS: Absolute Lymphocyte Count 1.76 X10^3/uL (0.83-4.51); Absolute Neutrophil Count 8.6 X10^3/uL (2.0-7.7); Basophil# 0.01 X10^3/uL; Basophil% 0.1 % (0-1); Eosinophils% 1.6 % (0-5); Hematocrit 41.3 % (37-47); Hemoglobin 13.7 g/dL (12.0-15.0); Lymphocyte # 1.76 X10^3/ul (0.83-4.51); Lymphocyte % 14.4 % (19-41); Mean Corp Hgb Conc 33.2 g/dL (32-36); Mean Corpuscular Hgb 31.6 pg (27.0-32.0); Mean Corpuscular Volume 95.2 fL (81-99); Mean Platelet Vol. 10.4 fl (6.2-12.0); Monocyte# 1.66 X10^3/uL; Monocyte% 13.6 % (0-10); NRBC Flagged by Analyzer 0 % (0-5); Neutrophil # 8.56 X10^3/uL (2.7-7.7); Neutrophil % 69.8 % (47-70); POSITIVE DIFFERENTIAL YES; Platelet Count 107 K/mm3 (150-450); RBC Distribution Width CV 14.6 % (11.6-14.6); RBC Distribution Width SD 51.8 fl (35.1-43.9); Red Blood Count 4.34 M/mm3 (4.2-5.4); White Blood Count 12.3 K/mm3 (4.4-11.0)
[2024-06-20 05:59] LABS: Differential Indicated SCAN CRITERIA MET
[2024-06-20 06:35] LABS: Anion Gap 7 (5-15); BUN 32 mg/dL (7-18); BUN/Creat Ratio 69.1 RATIO (10-20); Calcium,Total 8.6 mg/dL (8.5-10.1); Chloride 111 mmol/L (98-107); Creatinine, Serum 0.46 mg/dL (0.55-1.02); EST Glomerular Filtration Rate 145 mL/min (>60); Est Glom Filt Rate - Afr Amer 175 mL/min (>60); Estimated Creatinine Clearance 120.31 ml/min; Glucose 98 mg/dL (74-106); Potassium 4.2 mmol/L (3.5-5.1); Sodium Level 140 mmol/L (136-145)
[2024-06-20 06:37] LABS: Differential Comment SCANNED
[2024-06-20] MEDS: Metoprolol Tartrate 25 MG Tablet 12.5 MG PO ×2 (09:29→20:06)
[2024-06-20] MEDS: levoFLOXacin IV 750 MG/150 ML BAG 100 MG IV (09:29)
[2024-06-20] MEDS: guaiFENesin 1,200 MG Tablet 1200 MG PO ×2 (09:29→20:07)
[2024-06-20] MEDS: Senna/Docusate Sodium 1 Tablet 2 TABLET PO ×2 (09:29→20:07)
[2024-06-20] MEDS: Pantoprazole Sodium 40 MG Tablet PO (09:30)
[2024-06-20] MEDS: QUEtiapine 25 MG Tablet PO (09:30)
[2024-06-20] MEDS: predniSONE 20 MG Tablet 40 MG PO (09:30)
--- NOTE | 2024-06-20 12:39 | CASEMGMT ---
Social Work SW met w/pt in room in regard to discharge plan, inquired if pt would want to consider going somewhere for rehab. Pt states no, she thinks she will be able to manage at home. SW encouraged pt to participate in therapy so she can demonstrate that she can manage at home. Pt states that she will try. SW remains available should plan change and SNF is needed for rehab. DELFINO Huang
[2024-06-20] MEDS: Acetaminophen 325 MG Tablet 650 MG PO ×2 (13:30→20:06)
--- NOTE | 2024-06-20 14:33 | CASEMGMT ---
Dr. Solorio states that the pt will likely DC tomorrow morning. [facility] HH notified of the DC plan. CM to continue to follow for oxygen needs.
--- NOTE | 2024-06-20 15:24 | PCM.PN.HOSP ---
Reason for Visit Reason for Visit: Diagnoses Pneumonia, unspecified organism (06/14/24) Chronic obstructive pulmonary disease with (acute) exacerbation (06/14/24) Shortness of breath (06/14/24) Subjective Subjective Patient was seen and examined today, she appears fatigued, she is alert enough to answer questions however. I have elected to stop her Ativan and Seroquel and hydroxyzine. Patient would like to be discharged home when she is discharged from the hospital rather than go to an extended care facility. Patient is currently on room air at this time. She will need a walking oxygen test before she is discharged home. Objective Data Objective Data Vital Signs: Vital Signs Temp Pulse Resp BP Pulse Ox O2 Del Method O2 Flow Rate 97.8 F 88 22 H 114/69 87 Room Air 2 06/20/24 14:00 06/20/24 14:00 06/20/24 14:00 06/20/24 14:00 06/20/24 14:34 06/20/24 14:34 06/19/24 22:00 FiO2 06/18/24 21:00 Oxygen Flow Rate (L/min) 2 Oxygen Delivery Method Room Air Weight: 60.1 kg Body Mass Index (BMI) 20.1 Intake & Output: Intake and Output for Last 24 Hours 06/18/24 06/19/24 06/20/24 23:59 23:59 23:59 Intake Total 350 / 590 390 / 390 570 / 570 Output Total 435 / 435 650 / 650 Balance -85 / 155 -260 / -260 570 / 570 Medical Nutrition Assessment Dietitian: Malnutrition Criteria Met Start: 06/20/24 11:53 Freq: Status: Active Protocol: Document 06/20/24 11:53 RMA (Rec: 06/20/24 11:53 RMA [id number]) Nutrition Malnutrition Evidence of Malnutrition Exists Yes Malnutrition (severe): Acute Illness/Injury Evidenced By Suboptimal Energy Intake ( Severe),Weight Loss (Severe) Intake Problem Inadequate Oral Intake Etiology related to suboptimal appetite and refusal of meals Signs/Symptoms as evidenced by pt consuming less than 25% meals x past 2 days Status Active Problem Clinical Problem Acute Disease or Injury Related Malnutrition Etiology severe protein-calorie malnutrition in the context of acute illness related to inadequate oral/energy intake Signs/Symptoms as evidenced by PO meeting less than 50% estimated nutrition needs x 1 week and ~ 5% unintentional weight loss x 1 week; BMI 20.1 Status Active Problem Recommendation Dietitian Recommendations/Changes Continue liberalized Regular diet to optimize oral intakes. Continue Magic cup with lunch and dinner to provide supplemental energy as consumed; pt refusing PO ensure supplements. Will monitor weight trends, seems to be consistently declining along side refusal of meals since admit. May need to consider enteral nutrition support if pt continues with refusal of meals and declining weight. Lab / Micro Data 06/20/24 05:30 06/20/24 05:30 Labs: Laboratory Results - last 24 hr 06/18/24 04:06: Diff Path Review Reviewed 06/20/24 05:30: WBC 12.3 H, RBC 4.34, Hgb 13.7, Hct 41.3, MCV 95.2, MCH 31.6, MCHC 33.2, RDW Std Deviation 51.8 H, RDW Coeff of Heath 14.6, Plt Count 107 L, MPV 10.4, Immature Gran % (Auto) 0.500, Neut % (Auto) 69.8, Lymph % (Auto) 14.4 L, [place]yer % (Auto) 13.6 H, Eos % (Auto) 1.6, Baso % (Auto) 0.1, Absolute Neuts (auto) 8.6 H, Absolute Lymphs (auto) 1.76, Nucleated RBC % 0, Differential Comment SCANNED, Diff Path Review September foll, Sodium 140, Potassium 4.2, Chloride 111 H, Carbon Dioxide 22.0, Anion Gap 7, BUN 32 H, Creatinine 0.46 L, Estim Creat Clear Calc 120.31, Est GFR (MDRD) Af Amer 175, Est GFR (MDRD) Non-Af 145, BUN/Creatinine Ratio 69.1 H, Glucose 98, Calcium 8.6 Micro: Microbiology 06/14/24 14:30 Blood Culture (Wb) - Anticubital Left Blood Culture - Final No growth in 5 days. 06/14/24 14:30 Blood Culture (Wb) - Left Wrist Blood Culture - Final No growth in 5 days. 06/14/24 17:05 Mucosa - Nose Respiratory Panel (PCR) - Final Parainfluenza 3 06/14/24 17:00 Urine, Clean Catch Legionella Antigen - Final 06/14/24 17:00 Urine, Clean Catch Streptococcus pneumoniae Antigen (M - Final 06/14/24 12:21 Mucosa - Nose SARS-CoV-2, Influenza & RSV (PCR) - Final Physical Exam Narrative alert, oriented x3 and no apparent distress Constitutional Narrative: Patient appears older than her stated age General Appearance: cooperative, well kempt and well developed Orientation / Consciousness: awake, oriented to person, oriented to place, patient is somewhat somnolent HEENT normocephalic, head/scalp atraumatic and moist oral mucous membranes Eyes PERRL, EOMs intact bilaterally and conjunctivae normal Neck supple, no JVD, thyroid normal and no carotid bruits General: trachea midline Resp normal respiratory effort, no retractions, no use of accessory muscles and clear to auscultation bilaterally Auscultation: Negative for rales, rhonchi or wheezes Cardio regular rate, regular rhythm, S1 normal heart sound, S2 normal heart sound, no murmurs, no rub and no gallops GI normal to inspection, nondistended, normoactive bowel sounds, soft to palpation, non-tender and non-distended Extremity no clubbing, cyanosis or edema Skin no rashes or lesions noted General Skin Exam: no breakdown Neuro oriented x2 CN's II-XII intact bilaterally, moves all extremities, no focal motor deficits and no sensory deficits noted Sensorium / Orientation: awake and alert, slightly somnolent Speech: speech normal Psych affect normal Assessment & Plan Assessment/Plan (1) COPD (chronic obstructive pulmonary disease): QUALIFIERS: COPD type: unspecified COPD Qualified Code(s): J44.9 - Chronic obstructive pulmonary disease, unspecified (2) Shortness of breath: PLAN: Plan 1. Hypoxia secondary to exacerbation of COPD with an overlie of community-acquired pneumonia-I have decided to stop the patient's Levaquin and continue her aerosol treatments and prednisone at this time #2 acute exacerbation of COPD-again patient is receiving IV Solu-Medrol and aerosol treatments #3 right lower lobe community-acquired pneumonia-patient has finished a course of Levaquin #4 chronic anxiety-complicates care, management, recovery, and prognosis, I have elected to stop the patient's Seroquel, Ativan, and hydroxyzine due to her somnolence, she will be reevaluated tomorrow for possible discharge home Total clinical time spent by myself addressing the patient's medical issues, reviewing all the data, and collaborating the patient's care team: 35 minutes Charges/Coding Visit Charges Inpatient E&M: 32657 Subs Hosp L2
[2024-06-20] MEDS: 0.9% Saline Lock 10 ML Syringe IV (20:06)
[2024-06-20] MEDS: Gabapentin 600 MG Tablet PO (20:07)
[2024-06-21] VITALS (10 sets, daily range): BP systolic 114–119; BP diastolic 68–72; PULSE 82–98; RESP 17–22; TEMP 36.2–36.3; O2SAT 8–95; BMI 20.8
--- NOTE | 2024-06-21 02:01 | NURSING ---
Call Returned to Ale Lujan with a patient update. All questions answered and family member verbalized satisfaction with the update.
[2024-06-21] MEDS: oxyCODONE 5 MG Tablet PO ×3 (05:27→15:21)
[2024-06-21] MEDS: Acetaminophen 325 MG Tablet 650 MG PO (05:27)
[2024-06-21 06:08] LABS: Absolute Lymphocyte Count 1.53 X10^3/uL (0.83-4.51); Absolute Neutrophil Count 9.1 X10^3/uL (2.0-7.7); Basophil# 0.04 X10^3/uL; Basophil% 0.3 % (0-1); Eosinophil# 0.23 X10^3/uL; Eosinophils% 1.8 % (0-5); Hematocrit 37.6 % (37-47); Hemoglobin 13.2 g/dL (12.0-15.0); Lymphocyte # 1.53 X10^3/ul (0.83-4.51); Mean Corp Hgb Conc 35.1 g/dL (32-36); Mean Corpuscular Hgb 32.4 pg (27.0-32.0); Mean Corpuscular Volume 92.4 fL (81-99); Mean Platelet Vol. 9.9 fl (6.2-12.0); Monocyte# 1.77 X10^3/uL; Monocyte% 13.8 % (0-10); NRBC Flagged by Analyzer 0 % (0-5); Neutrophil # 9.14 X10^3/uL (2.7-7.7); Neutrophil % 71.4 % (47-70); POSITIVE DIFFERENTIAL YES; Platelet Count 115 K/mm3 (150-450); RBC Distribution Width CV 14.6 % (11.6-14.6); RBC Distribution Width SD 49.2 fl (35.1-43.9); Red Blood Count 4.07 M/mm3 (4.2-5.4); White Blood Count 12.8 K/mm3 (4.4-11.0)
[2024-06-21 06:45] LABS: Differential Indicated SCAN CRITERIA MET
[2024-06-21] MEDS: Ipratropium/Albuterol Sulfate 3 ML AMPUL.NEB INHALATION ×2 (07:09→11:16)
[2024-06-21 07:47] LABS: Anion Gap 8 (5-15); BUN 31 mg/dL (7-18); Calcium,Total 8.8 mg/dL (8.5-10.1); Chloride 108 mmol/L (98-107); Creatinine, Serum 0.47 mg/dL (0.55-1.02); EST Glomerular Filtration Rate 142 mL/min (>60); Est Glom Filt Rate - Afr Amer 172 mL/min (>60); Estimated Creatinine Clearance 121.75 ml/min; Glucose 109 mg/dL (74-106); Potassium 4.1 mmol/L (3.5-5.1); Sodium Level 138 mmol/L (136-145)
[2024-06-21 08:12] LABS: Reactive Lymphocyte 1+
[2024-06-21] MEDS: guaiFENesin 1,200 MG Tablet 1200 MG PO (10:16)
[2024-06-21] MEDS: Pantoprazole Sodium 40 MG Tablet PO (10:16)
[2024-06-21] MEDS: Metoprolol Tartrate 25 MG Tablet 12.5 MG PO (10:16)
[2024-06-21] MEDS: Senna/Docusate Sodium 1 Tablet 2 TABLET PO (10:17)
[2024-06-21] MEDS: predniSONE 20 MG Tablet 40 MG PO (10:17)
--- NOTE | 2024-06-21 11:15 | PCM.HOSP.N ---
Hospitalist Note Oxygen testing reviewed, patient is ambulatory in the home and community and requires home oxygen with portability
--- NOTE | 2024-06-21 11:27 | CASEMGMT ---
Per the RN O2 testing, pt qualifies for 2L with exertion. Rx signed by Dr. Solorio. Rx and O2 testing sent to [facility] via [facility]. Dr. Solorio states that the pt will DC today. RN CM to pt room at this time. Pt sitting up in the chair and is calm. Pt states that she is OK with oxygen being set up as long as the equipment can fit into her apartment. Pt educated on this process and to call [facility] prior to leaving the hospital for equipment delivery. Pt states understanding. Pt states that her daughter will drive her home today and denies transportation concerns. Pt also updated that [facility] will be in contact regarding a SOC time. [facility] notified that the pt will be discharging today and this RN CM requested a SOC date. Awaiting return response. Pt thanks this RN CM and denies further needs at this time. Pt RN updated. PLAN: Home today via pt daughter with [facility] and new oxygen supplied through [employer].
--- NOTE | 2024-06-21 12:19 | DCINST_ITS ---
Discharge Instructions Diet Discharge Diet: No restrictions DC O2, CPAP, BIPAP needs RN Home O2 Qualification: Home O2 Qualification: Is the patient on home oxygen No 06/21/24 10:45 Home O2 Qualification: AT REST 1- Pulse Ox at rest 94 06/21/24 10:45 Home O2 Qualification: WITH AMBULATION 1- Pulse Ox with ambulation 86 06/21/24 10:45 1- Oxygen Flow Rate with 0 06/21/24 10:45 ambulation 2- Pulse Ox with ambulation 90 06/21/24 10:45 2- Oxygen Flow Rate with 2 06/21/24 10:45 ambulation Home O2 Discharge instructions: Yes Type of respiratory needs?: Oxygen Oxygen frequency: With Ambulation Oxygen liters per minute during Ambulation: 2 L Dressing / Incision Discharge Activity: Return to Normal Activity Weight Bearing Status: Full weight bearing Follow Up Care Test Results: Test results from this visit will be discussed in further detail at your follow- up appointment, if applicable. Discharge Plan Admission Admit Date/Time: 06/14/24 15:13 Primary Reason for Your Visit: pneumonia, exacerbation of COPD Attending Provider: Sumit Pickering Primary Care Provider: Roslyn Amaral Consulting Providers: Dejah Davila; Rain Moreno Instructions Additional Instructions / Restrictions: Use oxygen when walking or exerting yourself at 2 L, you will not need oxygen at rest Discharge Orders/Prescriptions Prescriptions: New nicotine 21 mg/24 hr Patch 24 Hour 21 mg transdermal DAILY Qty: 30 0RF prednisone 20 mg tablet 40 mg PO DAILY Qty: 10 0RF Rx Instructions: start on 06/22/24 Continued pantoprazole [Protonix] 40 mg tablet,delayed release (DR/EC) 40 mg PO DAILY albuterol sulfate 90 mcg/actuation aerosol powdr breath activated 2 inh inhalation Q6H PRN (Reason: shortness of breath or wheezing) Qty: 1 0RF ondansetron 4 mg tablet,disintegrating 4 mg translingual Q8H PRN (Reason: nausea and vomiting) gabapentin 600 mg tablet 600 mg PO QHS oxycodone-acetaminophen 5-325 mg tablet 1 tab PO BID PRN (Reason: pain) albuterol sulfate 2.5 mg /3 mL (0.083 %) solution for nebulization 2.5 mg inhalation UD Patient Comments: PT UNSURE OF DIRECTIONS. budesonide-formoterol [Symbicort] 160-4.5 mcg/actuation HFA aerosol inhaler 2 puff INHALATION Patient Comments: PT UNSURE OF DIRECTIONS. mupirocin 2 % ointment 1 applic topical TID PRN (Reason: skin irritation) lactulose [Constulose] 10 gram/15 mL solution 10 g PO TID PRN (Reason: constipation) Referrals / Follow Up: Roslyn Amaral, [Primary Care Provider] - Within 1 Month Disposition Disposition (needs filled in before D/C Order can be placed): Home, Self Care
--- NOTE | 2024-06-21 12:32 | DS.PCM_ITS ---
Providers Date of Admission: 06/14/24 Date of Discharge: 06/21/24 Primary Care Physician: Dr. Roslyn Amaral DO Reason For Visit: RESPIRATORY DISTRESS, PNA, COPD Diagnosis Discharge Diagnosis (1) COPD (chronic obstructive pulmonary disease): Status: Chronic Code(s): J44.9 - Chronic obstructive pulmonary disease, unspecified Qualifiers: COPD type: unspecified COPD Qualified Code(s): J44.9 - Chronic obstructive pulmonary disease, unspecified (2) Shortness of breath: Status: Acute Code(s): R06.02 - Shortness of breath Plan 1. Hypoxia secondary to exacerbation of COPD with an overlie of community- acquired pneumonia-I have decided to stop the patient's Levaquin and continue her aerosol treatments and prednisone at this time #2 acute exacerbation of COPD-again patient is receiving IV Solu-Medrol and aerosol treatments #3 right lower lobe community-acquired pneumonia-patient has finished a course of Levaquin #4 chronic anxiety-complicates care, management, recovery, and prognosis, I have elected to stop the patient's Seroquel, Ativan, and hydroxyzine due to her somnolence, she will be reevaluated tomorrow for possible discharge home Total clinical time spent by myself addressing the patient's medical issues, reviewing all the data, and collaborating the patient's care team: 35 minutes Medications at Discharge Home Medications pantoprazole 40 mg tablet,delayed release (Protonix) 40 mg PO DAILY 06/30/22 albuterol sulfate 90 mcg/actuation breath activated powder inhaler 2 inh inhalation Q6H PRN shortness of breath or wheezing #1 ea 07/07/22 ondansetron 4 mg disintegrating tablet 4 mg translingual Q8H PRN nausea and vomiting 08/03/22 albuterol sulfate 2.5 mg/3 mL (0.083 %) solution for nebulization 2.5 mg inhalation UD 06/14/24 budesonide-formoterol HFA 160 mcg-4.5 mcg/actuation aerosol inhaler (Symbicort) 2 puff inhalation Q12H 06/14/24 gabapentin 600 mg tablet 600 mg PO QHS PRN pain 06/14/24 lactulose 10 gram/15 mL oral solution (Constulose) 10 g PO TID PRN constipation 06/14/24 mupirocin 2 % topical ointment 1 applic topical TID PRN skin irritation 06/14/24 oxycodone-acetaminophen 5 mg-325 mg tablet 1 tab PO BID PRN pain 06/14/24 nicotine 21 mg/24 hr daily transdermal patch 21 mg transdermal DAILY #30 ea 06/21/24 prednisone 20 mg tablet 40 mg (2 x 20 mg) PO DAILY #10 tabs 06/21/24 Hospital Course Operations None Procedures None Summary of Care Provided Minutes Spent on Discharge: 31 Hospital Course: 63-year-old white female was seen in the emergency room at [facility] with complaints of shortness of breath. Symptoms have been going on for about a week, she had been seen in the emergency room about 3 days prior and discharged home. Patient has a history of COPD. Workup in the emergency room included a CBC which was unremarkable, chemistry panel was unremarkable, and chest x-ray showed COPD with bullous changes with a right pleural effusion and or right pleural thickening. No significant change in prior x-ray was noted. CT of the chest showed no evidence of embolism. Patient required supplemental oxygen to keep her pulse ox above 90%. Patient was admitted to [facility], placed on IV Solu-Medrol and aerosol treatments, initially she was placed on IV antibiotics for suspected pneumonia-this examiner did not feel she had pneumonia however. Patient improved during her hospital stay, at the time of discharge on 06/21/2024, she required oxygen on ambulation. On 06/21/2024, patient was seen and examined: On examination she appeared in good health and spirits, she does not appear to be in any distress. Vital signs as documented. Skin warm and dry and without overt rashes. Neck without JVD, thyroid appears normal, trachea is midline, neck is supple. Lungs clear, normal air movement was noted. Heart exam notable for regular rhythm, normal sounds and absence of murmurs, rubs or gallops. Abdomen unremarkable and without evidence of organomegaly, masses, or abdominal aortic enlargement, bowel sounds are present in all 4 quadrants, no abdominal tenderness was noted. Extremities nonedematous, no cyanosis was noted, no clubbing was noted. Neuro: Cranial nerves II through XII are grossly intact, no focal motor deficits were noted, sensation to light touch and pinprick is intact, motor exam 5/5 throughout. Psych: Patient is alert and oriented x3, she does not appear anxious or depressed, she does not appear agitated. Patient appeared stable for discharge home on 06/21/2024. Medical Records Data Medical Nutrition Assessment Dietitian: Malnutrition Criteria Met Start: 06/20/24 11:53 Freq: Status: Active Protocol: Document 06/20/24 11:53 RMA (Rec: 06/20/24 11:53 RMA [id number]) Nutrition Malnutrition Evidence of Malnutrition Exists Yes Malnutrition (severe): Acute Illness/Injury Evidenced By Suboptimal Energy Intake ( Severe),Weight Loss (Severe) Intake Problem Inadequate Oral Intake Etiology related to suboptimal appetite and refusal of meals Signs/Symptoms as evidenced by pt consuming less than 25% meals x past 2 days Status Active Problem Clinical Problem Acute Disease or Injury Related Malnutrition Etiology severe protein-calorie malnutrition in the context of acute illness related to inadequate oral/energy intake Signs/Symptoms as evidenced by PO meeting less than 50% estimated nutrition needs x 1 week and ~ 5% unintentional weight loss x 1 week; BMI 20.1 Status Active Problem Recommendation Dietitian Recommendations/Changes Continue liberalized Regular diet to optimize oral intakes. Continue Magic cup with lunch and dinner to provide supplemental energy as consumed; pt refusing PO ensure supplements. Will monitor weight trends, seems to be consistently declining along side refusal of meals since admit. May need to consider enteral nutrition support if pt continues with refusal of meals and declining weight. Weight / BMI Weight Weight: 62.142 kg Body Mass Index (BMI) 20.8 ABG / Lab / Microbiology Data 06/21/24 05:56 06/21/24 05:56 Laboratory: Laboratory Results - last 24 hr 06/21/24 05:56: WBC 12.8 H, RBC 4.07 L, Hgb 13.2, Hct 37.6, MCV 92.4, MCH 32.4 H , MCHC 35.1 D, RDW Std Deviation 49.2 H, RDW Coeff of Heath 14.6, Plt Count 115 L , MPV 9.9, Immature Gran % (Auto) 0.700, Neut % (Auto) 71.4 H, Lymph % (Auto) 12.0 L, [place] % (Auto) 13.8 H, Eos % (Auto) 1.8, Baso % (Auto) 0.3, Absolute Neuts (auto) 9.1 H, Absolute Lymphs (auto) 1.53, Nucleated RBC % 0, Diff Path Review May foll, Reactive Lymphocytes 1+, Sodium 138, Potassium 4.1, Chloride 108 H, Carbon Dioxide 23.0, Anion Gap 8, BUN 31 H, Creatinine 0.47 L, Estim Creat Clear Calc 121.75, Est GFR (MDRD) Af Amer 172, Est GFR (MDRD) Non-Af 142, BUN/Creatinine Ratio 66.0 H, Glucose 109 H, Calcium 8.8 Microbiology: Microbiology 06/14/24 14:30 Blood Culture (Wb) - Anticubital Left Blood Culture - Final No growth in 5 days. 06/14/24 14:30 Blood Culture (Wb) - Left Wrist Blood Culture - Final No growth in 5 days. 06/14/24 17:05 Mucosa - Nose Respiratory Panel (PCR) - Final Parainfluenza 3 06/14/24 17:00 Urine, Clean Catch Legionella Antigen - Final 06/14/24 17:00 Urine, Clean Catch Streptococcus pneumoniae Antigen (M - Final 06/14/24 12:21 Mucosa - Nose SARS-CoV-2, Influenza & RSV (PCR) - Final D/C Instructions Discharge Diet: No restrictions Weight Bearing Status: Full weight bearing DC O2, CPAP, BIPAP Needs RN Home O2 Qualification: Home O2 Qualification: Is the patient on home oxygen No 06/21/24 10:45 Home O2 Qualification: AT REST 1- Pulse Ox at rest 94 06/21/24 10:45 Home O2 Qualification: WITH AMBULATION 1- Pulse Ox with ambulation 86 06/21/24 10:45 1- Oxygen Flow Rate with 0 06/21/24 10:45 ambulation 2- Pulse Ox with ambulation 90 06/21/24 10:45 2- Oxygen Flow Rate with 2 06/21/24 10:45 ambulation PSN CPAP & BiPAP: BiPAP & CPAP Settings per PSN Mode BiPAP 06/21/24 11:56 Bipap Delivery Device Face Mask 06/17/24 17:22 BiPAP Expiratory Pressure 8 06/17/24 17:22 BiPAP Rate 12 06/17/24 17:22 Fraction of Inspired Oxygen ( 06/18/24 21:00 FIO2) Home O2 Discharge instructions: Yes Type of respiratory needs?: Oxygen Oxygen frequency: With Ambulation Oxygen liters per minute during Ambulation: 2 L DC home with Oxygen: Yes Home O2 MD Review: I have reviewed the oxygen testing, and the patient qualifies for home oxygen equipment and portability. The patient is mobile in the home and the community. Meaningful Use Info Meaningful Use Meaningful Use Diagnoses (Choose all that apply): None applicable Ischemic Stroke Statin Dosing Therapy Reference: STATIN DOSE THERAPY REFERENCE: * Patients > 75 years receive moderate or high dose statin therapy. * Patients 75 years or YOUNGER should receive HIGH intensity statin dose unless contraindicated. You will be required to document reason for non-treatment if statin daily dose does not meet guidelines. HIGH DOSE STATIN THERAPY DAILY Atorvastatin > than or = to 40 mg Rosuvastatin > than or = to 20 mg Amlodipine + Atorvastatin > than or = to 2.5/40 mg Ezetimibe + Simvastatin 10/80 mg Simvastatin 80mg Discharge Plan Admission Admit Date/Time: 06/14/24 15:13 Primary Reason for Your Visit: pneumonia, exacerbation of COPD Attending Provider: Sumit Pickering Primary Care Provider: Roslyn Amaral Consulting Providers: Dejah Davila; Rain Moreno Instructions Additional Instructions / Restrictions: Use oxygen when walking or exerting yourself at 2 L, you will not need oxygen at rest Discharge Orders/Prescriptions Prescriptions: New nicotine 21 mg/24 hr Patch 24 Hour 21 mg transdermal DAILY Qty: 30 0RF prednisone 20 mg tablet 40 mg PO DAILY Qty: 10 0RF Rx Instructions: start on 06/22/24 Continued pantoprazole [Protonix] 40 mg tablet,delayed release (DR/EC) 40 mg PO DAILY albuterol sulfate 90 mcg/actuation aerosol powdr breath activated 2 inh inhalation Q6H PRN (Reason: shortness of breath or wheezing) Qty: 1 0RF ondansetron 4 mg tablet,disintegrating 4 mg translingual Q8H PRN (Reason: nausea and vomiting) gabapentin 600 mg tablet 600 mg PO QHS PRN (Reason: pain) oxycodone-acetaminophen 5-325 mg tablet 1 tab PO BID PRN (Reason: pain) albuterol sulfate 2.5 mg /3 mL (0.083 %) solution for nebulization 2.5 mg inhalation UD Patient Comments: PT UNSURE OF DIRECTIONS. budesonide-formoterol [Symbicort] 160-4.5 mcg/actuation HFA aerosol inhaler 2 puff INHALATION Q12H Patient Comments: PT UNSURE OF DIRECTIONS. mupirocin 2 % ointment 1 applic topical TID PRN (Reason: skin irritation) lactulose [Constulose] 10 gram/15 mL solution 10 g PO TID PRN (Reason: constipation) Referrals / Follow Up: Roslyn Amaral DO [Primary Care Provider] - Within 1 Month Disposition Disposition (needs filled in before D/C Order can be placed): Home Health Service Charges/Coding Visit Charges Inpatient E&M: 23629 Disch Hosp >30min
[2024-06-22 14:10] LABS: Pathologist Review Reviewed
[2024-06-23 09:46] LABS: Pathologist Review Reviewed
[2024-06-23 09:58] LABS: Pathologist Review Reviewed
== END 2024-06-21 16:00 | disposition home health service (06) | DRG 140 ==
LOC: ED 14:59 → ICU 15:42
PROVIDERS: Student in an Organized Health Care Education/Training Program; Admitting Provider Internal Medicine; Emergency Provider Emergency Medicine; PCP Family Medicine; Visit Provider Internal Medicine
DX: J44.1 Chronic obstructive pulmonary disease with (acute) exacerbation (principal); G93.41 Metabolic encephalopathy; E43 Unspecified severe protein-calorie malnutrition; J18.9 Pneumonia, unspecified organism; J44.0 Chronic obstructive pulmonary disease with (acute) lower respiratory infection; I10 Essential (primary) hypertension; B19.20 Unspecified viral hepatitis C without hepatic coma; F17.210 Nicotine dependence, cigarettes, uncomplicated; K21.9 Gastro-esophageal reflux disease without esophagitis; E78.5 Hyperlipidemia, unspecified; F41.8 Other specified anxiety disorders; Z79.51 Long term (current) use of inhaled steroids; Z90.710 Acquired absence of both cervix and uterus; R07.89 Other chest pain; Z90.49 Acquired absence of other specified parts of digestive tract; Z79.899 Other long term (current) drug therapy; R45.1 Restlessness and agitation; R09.02 Hypoxemia; R94.6 Abnormal results of thyroid function studies; R00.0 Tachycardia, unspecified; Z68.20 Body mass index [BMI] 20.0-20.9, adult
CPT/HCPCS: 36415; 36600; 71046; 71275; 80048; 80053; 82140; 82803; 82962; 83605; 83880; 84439; 84443; 84484; 85025; 85379; 87040; 87449; 87631; 87633; 93005; 93306; 94002; 94003; 94640; 94762; 96374; 96375; 97162; 97166; 97530; 97535; 99284; 99285; 99406; Q9957; Q9967; A4216; C8929; J2405

== ENCOUNTER 2024-06-23 16:02 | Inpatient (IN) | payer MEDICAID, SELFPAY ==
[2024-06-23] VITALS (14 sets, daily range): BP systolic 98–135; BP diastolic 50–87; PULSE 110–145; RESP 21–39; TEMP 36.6–36.9; O2SAT 94–100; BMI 20.7; BMI 20.9
--- NOTE | 2024-06-23 16:30 | ED.VIS.DYS ---
HPI History of Present Illness Chief Complaint: Shortness of Breath Informant: patient Onset/Context/Timing Onset: Days Context: gradual Timing: Continuous Quality: Positive for Dyspnea on exertion Worsened by: Exertion Relieved by: Rest Associated Symptoms cough, subjective and chills; Negative for rhinorrhea, post nasal drip, ear pain, fever, sore throat or sweats Chest Pain: Positive for Sharp (Left parasternal area) Narrative Narrative: Patient presents with shortness of breath that has been getting worse for the past couple days. Patient was recently admitted to the hospital for pneumonia. Patient states she was discharged 2 days ago and felt like she was getting worse since that time. Patient states her breathing is worse with any exertion. Patient states it gets little better with rest. The patient states that she was having some nausea and diarrhea today. Patient states that while she was on the toilet, her heart rate went up into the 160s. Patient admits to some subjective chills but denies any fevers. Patient admits to some sharp pain in her left chest. Patient states she is coughing up some brown sputum. [facility] Medical History Left rotator cuff tear arthropathy Vision problems Neuropathy Breast lump Left shoulder pain Oral candidiasis History of illicit drug use Pleural effusion on right Heroin addiction History of alcoholism Anxiety and depression History of hepatitis C Tobacco dependence due to cigarettes Vitamin D deficiency Thrombocytopenia Degenerative arthritis Restless legs Injury of head and neck Fall at home Closed subcapital fracture of neck of right femur Cirrhosis of liver Impetigo Cystitis Back pain Hyperlipidemia Seasonal allergies Atopic dermatitis H pylori ulcer COPD (chronic obstructive pulmonary disease) Home Medications ?Medication ?Instructions ?Recorded ?Last Taken ?Type pantoprazole 40 mg tablet,delayed 40 mg PO DAILY 06/30/22 Unknown History release (Protonix) albuterol sulfate 90 mcg/actuation 2 inh inhalation Q6H PRN shortness 07/07/22 06/13/24 Rx breath activated powder inhaler of breath or wheezing #1 ea ondansetron 4 mg disintegrating 4 mg translingual Q8H PRN nausea 08/03/22 Unknown History tablet and vomiting albuterol sulfate 2.5 mg/3 mL 2.5 mg inhalation UD 06/14/24 06/13/24 History (0.083 %) solution for nebulization budesonide-formoterol HFA 160 2 puff inhalation Q12H 06/14/24 06/13/24 History mcg-4.5 mcg/actuation aerosol inhaler (Symbicort) gabapentin 600 mg tablet 600 mg PO QHS PRN pain 06/14/24 06/13/24 History lactulose 10 gram/15 mL oral 10 g PO TID PRN constipation 06/14/24 Unknown History solution (Constulose) mupirocin 2 % topical ointment 1 applic topical TID PRN skin 06/14/24 Unknown History irritation oxycodone-acetaminophen 5 mg-325 1 tab PO BID PRN pain 06/14/24 06/14/24 History mg tablet nicotine 21 mg/24 hr daily 21 mg transdermal DAILY #30 ea 06/21/24 Unknown Rx transdermal patch prednisone 20 mg tablet 40 mg (2 x 20 mg) PO DAILY #10 tabs 06/21/24 Unknown Rx Allergy/AdvReac Type Severity Reaction Status Date / Time trazodone Allergy Mild leg cramps Verified 06/23/24 16:08 naproxen (From Naprosyn) AdvReac Upset Verified 06/23/24 16:08 Stomach tramadol AdvReac Itching Verified 06/23/24 16:08 Family History Mother FH: mental illness HLD (hyperlipidemia) Thyroid disorder Aunt No problems noted. Grandmother Heart disease Myocardial infarction Aunt Diabetes HLD (hyperlipidemia) Hypertension Grandfather COPD (chronic obstructive pulmonary disease) Sister Skin cancer Other Anxiety Arthritis Surgical History S/P TIPS (transjugular intrahepatic portosystemic shunt) History of breast biopsy History of D&C History of open reduction and internal fixation (ORIF) procedure Cervical vertebral fusion History of back surgery S/P shoulder surgery H/O colonoscopy History of esophagogastroduodenoscopy (EGD) H/O: hysterectomy S/P cholecystectomy History of back surgery Status post lumbar surgery Social History adopted: No household members: other details: Her granddaughter lives with her (17 years old). She has custody X 11 year housing: apartment number of children: 3 current occupational status: unemployed Smoking Status: Former smoker Tobacco: How many years used: 32 Electronic Cigarette Use: not used how long ago did patient quit smoking: started smoking at age 28 and smoked 1/2- 1.5 PPD....she is still smoking alcohol intake: former substance use type: former substance user do you feel safe at home: Yes ROS ROS ED Constitutional Constitutional ED: Denies chills or fever(s) Eyes Eyes: Denies blurry vision or change in vision ENT ENT ED: Denies rhinorrhea or sore throat Cardiovascular Cardiovascular: Reports chest pain and palpitations Respiratory/Chest Respiratory/Chest: Reports cough, dyspnea, dyspnea on exertion and sputum Gastrointestinal Gastrointestinal: Reports diarrhea, nausea and vomiting Genitourinary Genitourinary ED: Denies dysuria or hematuria Musculoskeletal Musculoskeletal: Reports back pain; Denies neck pain Integumentary Denies abscess or rash Neurologic Neurologic: Reports headache(s) and weakness Allergic/Immunologic Allergic/Immunologic ED: Denies mouth swelling or urticaria EXAM Physical Exam Const Vital Signs: 06/23/24 16:02 06/23/24 16:04 06/23/24 16:07 Temperature 98 F 98 F Temperature Source Oral Oral Pulse Rate 144 H 145 H 126 H Respiratory Rate 39 H 28 H Respiratory Effort Respiratory Depth Respiratory Pattern Blood Pressure 125/87 H 125/87 H Blood Pressure Mean 99 99 Pulse Ox 95 96 Oxygen Delivery Method Nasal Cannula Nasal Cannula Oxygen Flow Rate (L/min) 2 3 06/23/24 16:08 06/23/24 16:11 06/23/24 16:41 Temperature Temperature Source Pulse Rate Respiratory Rate 35 H Respiratory Effort Short of Breath Respiratory Depth Shallow Respiratory Pattern Tachypnea Blood Pressure Blood Pressure Mean Pulse Ox 96 Oxygen Delivery Method Nasal Cannula Nasal Cannula Nasal Cannula Oxygen Flow Rate (L/min) 2 3 3 06/23/24 17:07 06/23/24 17:24 06/23/24 17:24 Temperature 98.4 F Temperature Source Oral Pulse Rate 131 H 134 H Respiratory Rate 32 H 24 H Respiratory Effort Respiratory Depth Respiratory Pattern Tachypnea Blood Pressure 119/53 L Blood Pressure Mean 75 Pulse Ox 100 99 Oxygen Delivery Method Nasal Cannula Nasal Cannula Oxygen Flow Rate (L/min) 3 3 06/23/24 18:00 06/23/24 19:00 06/23/24 20:00 Temperature 98.1 F 98.4 F 98.5 F Temperature Source Oral Oral Oral Pulse Rate 115 H 116 H 114 H Respiratory Rate 23 H 21 H 25 H Respiratory Effort Respiratory Depth Respiratory Pattern Blood Pressure 117/72 98/50 L 123/66 H Blood Pressure Mean 87 66 85 Pulse Ox 98 99 95 Oxygen Delivery Method Nasal Cannula Nasal Cannula Nasal Cannula Oxygen Flow Rate (L/min) 3 2 2 06/23/24 20:43 06/23/24 21:00 Temperature 98.5 F 98.4 F Temperature Source Oral Pulse Rate 119 H 110 H Respiratory Rate 22 H 22 H Respiratory Effort Respiratory Depth Respiratory Pattern Blood Pressure 114/56 L 135/61 H Blood Pressure Mean 75 85 Pulse Ox 96 100 Oxygen Delivery Method Nasal Cannula Oxygen Flow Rate (L/min) 2 Positive well nourished and well developed General Appearance ED: well developed and NAD HEENT Reports dry mucous membranes atraumatic and trauma Mouth ED: Yes dry mucous membranes Mouth: dry mucous membranes Neck supple and no JVD Resp normal respiratory effort Auscultation: rhonchi and wheezes Cardio regular rhythm Rate: tachycardic GI Palpation: soft and tender epigastric, LLQ, RLQ, LUQ, RUQ, periumbilical and suprapubic; Negative for guarding or rebound tenderness present Extremity normal to inspection Neuro oriented x3, CN's II-XII intact bilaterally and no sensory deficits noted Oleg Coma Scale: document GCS findings Spontaneous Obeys Commands Oriented 15 Sensorium / Orientation: alert Speech: speech normal Motor Exam: strength 5/5 throughout Sepsis Attestation Sepsis Alert: Yes Sepsis Attestation: Agree w/Sepsis Date exam was performed: 06/23/24 Time exam was performed: 16:20 Possible Source of Sepsis: Pulmonary Sepsis Organ Dysfunction Criteria Present: Total Bilirubin > 2 mg/dl and Lactic Acid > 2 mmol/L Fluid Resuscitation Fluid Resuscitation ordered: 30 ml/kg fluid bolus ordered Amount of fluid ordered: 2,000 MDM MDM MDM Narrative Medical decision making narrative: Differential diagnosis includes pneumonia, bronchitis, COPD exacerbation, anemia, electrolyte abnormality, cardiac dysrhythmia, and cardiac ischemia. Patient had a recent CTA of her chest which did not show any pulmonary embolism at that time. EKG will be obtained to assess for cardiac dysrhythmia and cardiac ischemia. Chest x-ray will be obtained to assess for pneumonia and pneumothorax. CBC will be obtained to assess for leukocytosis and anemia. Basic metabolic profile will be obtained to assess for electrolyte abnormality and renal function. High-sensitivity troponin will be obtained to assess for cardiac ischemia. 2-hour repeat high-sensitivity troponin will be obtained to assess for ongoing cardiac ischemia. Urinalysis will be obtained to assess for urinary tract infection. Serum lactate will be obtained to assess for sepsis. Blood cultures will be obtained to assess for sepsis. Lab Data Attestation: I reviewed the patient's lab results. Lab results narrative: CBC was reviewed. There is a leukocytosis of 22.2. Comprehensive metabolic profile was reviewed. BUN was slightly elevated at 29 and creatinine was 0.54. Total bilirubin was mildly elevated at 3.3. Serum lactate was reviewed and was elevated at 3.6. Urinalysis was reviewed. Leukocyte esterase was 25. There were positive nitrites. There is 0-5 red blood cells and 0-5 white blood cells. PT with INR and PTT were reviewed. Pro time was 18.4 and INR is 1.5. PTT was normal at 25.7. Initial high-sensitivity troponin was reviewed and was normal at 52. 2-hour repeat high-sensitivity troponin was reviewed and was normal at 50. Labs: Laboratory Results - last 24 hr 06/23/24 06/23/24 06/23/24 16:23 16:50 17:05 WBC 22.2 H RBC 4.54 Hgb 14.7 Hct 44.2 MCV 97.4 D MCH 32.4 H MCHC 33.3 D RDW Std Deviation 54.3 H RDW Coeff of Heath 15.5 H Plt Count 121 L MPV 10.5 Immature Gran % (Auto) 0.600 Neut % (Auto) 79.8 H Lymph % (Auto) 6.9 L Ness % (Auto) 11.4 H Eos % (Auto) 0.4 Baso % (Auto) 0.9 Absolute Neuts (auto) 17.7 H Absolute Lymphs (auto) 1.53 Nucleated RBC % 0 Diff Path Review May foll Platelet Estimate SLT DEC RBC Morphology NORM C+C PT INR APTT Sodium 141 Potassium 5.0 Chloride 112 H Carbon Dioxide 22.0 Anion Gap 7 BUN 29 H Creatinine 0.54 L Estim Creat Clear Calc 105.38 Est GFR (MDRD) Af Amer 148 Est GFR (MDRD) Non-Af 122 BUN/Creatinine Ratio 54.0 H Glucose 121 H Lactic Acid Cancelled Calcium 8.5 Total Bilirubin 3.30 H AST 59 H ALT 30 Alkaline Phosphatase 94 Troponin I High Sens 52 Total Protein 5.3 L Albumin 2.2 L Globulin 3.1 Albumin/Globulin Ratio 0.7 L Urine Color Ivon Urine Clarity Clear Urine pH 6.5 Ur Specific [place] 1.015 Urine Protein 30 H Urine Glucose (UA) Normal Urine Ketones 50 H Urine Occult Blood 10 H Urine Nitrite Positive H Urine Bilirubin 3 H Urine Urobilinogen 4 H Ur Leukocyte Esterase 25 H Urine RBC 0-5 SEEN Urine WBC 0-5 SEEN Ur Squamous Epith Cells 0 SEEN Urine Bacteria 1+ Urine Mucus 2+ 06/23/24 06/23/24 06/23/24 17:49 18:07 18:37 WBC RBC Hgb Hct MCV MCH MCHC RDW Std Deviation RDW Coeff of Heath Plt Count MPV Immature Gran % (Auto) Neut % (Auto) Lymph % (Auto) Ness % (Auto) Eos % (Auto) Baso % (Auto) Absolute Neuts (auto) Absolute Lymphs (auto) Nucleated RBC % Diff Path Review Platelet Estimate RBC Morphology PT 18.4 H INR 1.5 APTT 25.7 Sodium Potassium Chloride Carbon Dioxide Anion Gap BUN Creatinine Estim Creat Clear Calc Est GFR (MDRD) Af Amer Est GFR (MDRD) Non-Af BUN/Creatinine Ratio Glucose Lactic Acid 3.6 H* Calcium Total Bilirubin AST ALT Alkaline Phosphatase Troponin I High Sens 50 Total Protein Albumin Globulin Albumin/Globulin Ratio Urine Color Urine Clarity Urine pH Ur Specific [place] Urine Protein Urine Glucose (UA) Urine Ketones Urine Occult Blood Urine Nitrite Urine Bilirubin Urine Urobilinogen Ur Leukocyte Esterase Urine RBC Urine WBC Ur Squamous Epith Cells Urine Bacteria Urine Mucus Radiography Chest X-Ray - ED: 1 View, Read by ED Physician, Read by Radiologist, Right Infiltrate and Right Effusion Diagnostic Testing: Clinical Impression(s) from Imaging Studies Chest X-Ray 06/23/24 17:50 IMPRESSION: Right pleural effusion with overlying airspace disease. Reading Location: [facility] Abdomen/Pelvis CT 06/23/24 20:45 IMPRESSION: Numerous dilated loops of small bowel new from priors suggesting distal small bowel obstruction. No free fluid. Right lower lobe pneumonia partially visualized One or more dose reduction techniques were used (e.g., Automated exposure control, adjustment of the mA and/or kV according to patient size, use of iterative reconstruction technique). Reading Location: [facility] Portable 1 view chest x-ray was obtained. On my independent interpretation, lung harris showed a right pleural effusion and right lower lobe infiltrate. There is normal cardiac silhouette. Bony thorax is normal. Radiologist also interpreted the x-ray and agrees. EKG Initial EKG: Attestation: I personally reviewed and interpreted this EKG as follows: Interpretation: No Acute Injury Pattern and Sinus Tachycardia (127) Comments: EKG was obtained. On my independent interpretation, it showed a sinus tachycardia with a rate of 127. VA interval, QRS interval, and QTc intervals were all normal. [place] was normal. There are no acute ST or T wave changes. Prior EKG tracings: available for review Prior: Unchanged (06/15/2024) Management Discussion w/another healthcare provider: Hospitalist and Deputy Director Treatment and Re-Evaluation :: Patient was given IV fluids. Patient was given a DuoNeb aerosol. Patient was started on Rocephin and Zithromax. Patient was given a dose of morphine and Zofran. Patient was given aspirin. Patient's heart rate improved to 114. Patient was advised of her findings. Case was discussed with the hospitalist for admission. He recommended obtaining a CT scan of the abdomen and pelvis due to the increase in the total bilirubin. This was obtained. There is evidence of a distal small bowel obstruction. Case was discussed with Dr. Fritz from general surgery. He will see the patient tomorrow in the hospital. He recommended placing an NG tube if the patient is having vomiting but otherwise patient does not need NG tube if she is not vomiting. Patient will be admitted to ICU. Patient understood and was agreeable with the plan. All questions were answered. Discharge Plan Triage Chief Complaint: Shortness of Breath Other Complaint: Abd Pain ED Provider: Asif Ayala Dx/Rx/DC Orders Clinical Impression: Pneumonia, Sepsis, Tachycardia, Small bowel obstruction Prescriptions: No Action pantoprazole [Protonix] 40 mg tablet,delayed release (DR/EC) 40 mg PO DAILY albuterol sulfate 90 mcg/actuation aerosol powdr breath activated 2 inh inhalation Q6H PRN (Reason: shortness of breath or wheezing) Qty: 1 0RF ondansetron 4 mg tablet,disintegrating 4 mg translingual Q8H PRN (Reason: nausea and vomiting) gabapentin 600 mg tablet 600 mg PO QHS PRN (Reason: pain) oxycodone-acetaminophen 5-325 mg tablet 1 tab PO BID PRN (Reason: pain) albuterol sulfate 2.5 mg /3 mL (0.083 %) solution for nebulization 2.5 mg inhalation UD Patient Comments: PT UNSURE OF DIRECTIONS. budesonide-formoterol [Symbicort] 160-4.5 mcg/actuation HFA aerosol inhaler 2 puff INHALATION Q12H Patient Comments: PT UNSURE OF DIRECTIONS. mupirocin 2 % ointment 1 applic topical TID PRN (Reason: skin irritation) lactulose [Constulose] 10 gram/15 mL solution 10 g PO TID PRN (Reason: constipation) nicotine 21 mg/24 hr Patch 24 Hour 21 mg transdermal DAILY Qty: 30 0RF prednisone 20 mg tablet 40 mg PO DAILY Qty: 10 0RF Rx Instructions: start on 06/22/24 Primary Care Provider: Roslyn Amaral Referrals: Roslyn Amaral DO [Primary Care Provider] - Print Language: Cymro Disposition Disposition: Acute Care Hospital [facility]
--- NOTE | 2024-06-23 16:41 | EKG12_ITS ---
Test Reason : Blood Pressure : */* mmHG Vent. Rate : 127 BPM Atrial Rate : 127 BPM P-R Int : 130 ms QRS Dur : 72 ms QT Int : 284 ms P-R-T Axes : 70 73 74 degrees QTcB Int : 412 ms Sinus tachycardia Otherwise normal ECG When compared with ECG of 15-Jun-2024 16:16, No significant change was found Confirmed by MICHAEL RAZO, MAEGAN ([id number]), editorial writer FERNIE PHILLIP ([id number]) on 06/26/2024 1:57:45 PM Referred By: Edgar Dugan Confirmed By: MAEGAN RODRIGUEZ MD
[2024-06-23 17:04] LABS: Squamous Epithelial Cells - UA 0 SEEN /hpf (5-10)
[2024-06-23 17:14] LABS: Absolute Lymphocyte Count 1.53 X10^3/uL (0.83-4.51); Absolute Neutrophil Count 17.7 X10^3/uL (2.0-7.7); Basophil# 0.19 X10^3/uL; Basophil% 0.9 % (0-1); Eosinophil# 0.08 X10^3/uL; Eosinophils% 0.4 % (0-5); Hematocrit 44.2 % (37-47); Hemoglobin 14.7 g/dL (12.0-15.0); Lymphocyte # 1.53 X10^3/ul (0.83-4.51); Lymphocyte % 6.9 % (19-41); Mean Corp Hgb Conc 33.3 g/dL (32-36); Mean Corpuscular Hgb 32.4 pg (27.0-32.0); Mean Corpuscular Volume 97.4 fL (81-99); Mean Platelet Vol. 10.5 fl (6.2-12.0); Monocyte# 2.52 X10^3/uL; Monocyte% 11.4 % (0-10); NRBC Flagged by Analyzer 0 % (0-5); Neutrophil # 17.73 X10^3/uL (2.7-7.7); Neutrophil % 79.8 % (47-70); POSITIVE DIFFERENTIAL YES; Platelet Count 121 K/mm3 (150-450); RBC Distribution Width CV 15.5 % (11.6-14.6); RBC Distribution Width SD 54.3 fl (35.1-43.9); Red Blood Count 4.54 M/mm3 (4.2-5.4); White Blood Count 22.2 K/mm3 (4.4-11.0)
[2024-06-23] MEDS: Ipratropium/Albuterol Sulfate 3 ML AMPUL.NEB INHALATION (17:23)
[2024-06-23 17:24] LABS: ALB/GLOB Ratio 0.7 RATIO (0.9-2.4); AST(SGOT) 59 U/L (15-37); Alanine Aminotransfer ALT/SGPT 30 U/L (13-56); Albumin, Serum 2.2 g/dL (3.2-5.0); Alkaline Phosphatase 94 U/L (45-117); Anion Gap 7 (5-15); BUN 29 mg/dL (7-18); Calcium,Total 8.5 mg/dL (8.5-10.1); Chloride 112 mmol/L (98-107); Creatinine, Serum 0.54 mg/dL (0.55-1.02); Differential Indicated SCAN CRITERIA MET; EST Glomerular Filtration Rate 122 mL/min (>60); Est Glom Filt Rate - Afr Amer 148 mL/min (>60); Estimated Creatinine Clearance 105.38 ml/min; Globulin 3.1 g/dL (2.2-4.2); Glucose 121 mg/dL (74-106); Protein, Total 5.3 g/dL (6.4-8.2); Sodium Level 141 mmol/L (136-145); Troponin-I HS (w/2H Reflex) 52 pg/mL (3.0-54.0)
[2024-06-23] MEDS: 0.9% Normal Saline (1000mL) 1,000 ML 999 ML IV (17:26)
[2024-06-23] MEDS: Aspirin 81 MG TAB.CHEW 324 MG PO (17:26)
[2024-06-23] MEDS: Ondansetron 4 MG/2 ML Vial IV ×2 (17:26→21:16)
[2024-06-23 17:27] LABS: Color, Urine Amber (Yellow); Glucose, Dipstick Normal (Normal); Ketone-Dipstick 50 mg/dl (Negative); Leukocyte Esterase-Dipstick 25 /ul (Negative); Nitrite-Dipstick Positive (Negative); Occult Blood-Urine 10 /ul (Negative); Protein-Dipstick 30 mg/dl (Negative); Specific Gravity, Urine 1.015 (1.002-1.030); Urine Clarity Clear (Clear); Urine Urobilinogen 4 mg/dl (Normal); Urine pH 6.5 (5.0 - 8.0)
[2024-06-23 17:38] LABS: Urine Bilirubin Dipstick 3 mg/dL (Negative)
[2024-06-23 17:40] LABS: Bacteria 1+ /hpf (None Seen); Mucous, Urine 2+ /hpf (<or=2+); Red Blood Cells-Urine 0-5 SEEN /hpf (0-5); White Blood Cells 0-5 SEEN /hpf (0-5)
--- NOTE | 2024-06-23 17:50 | RAD_ITS ---
PROCEDURE: CHEST 1 VIEW (PORTABLE) REASON FOR EXAM: Cough TECHNIQUE: Frontal view of the chest. COMPARISON: 01/04/2024. FINDINGS: The heart size is normal. The mediastinal contour is unremarkable. Blunting of the right costophrenic angle. Right basilar opacity The bones are unremarkable. RAD/Chest 1 View (Portable) IMPRESSION: Right pleural effusion with overlying airspace disease. Reading Location: [facility]
[2024-06-23 17:52] LABS: Platelet Estimate SLT DEC (ADEQ); Red Cell Morphology NORM C+C NORMAL (NORM C&C)
[2024-06-23 18:07] LABS: International Normalized Ratio 1.5; Prothrombin Time (Protime)PT. 18.4 SECONDS (11.7-14.9)
[2024-06-23 18:08] LABS: Partial Thromboplast Time 25.7 Seconds (24.1-36.2)
[2024-06-23 19:02] LABS: Reflex Troponin-HS? (from REC) Y
[2024-06-23 19:02] LABS: Lactic Acid 3.6 mmol/L (0.4-1.9)
--- NOTE | 2024-06-23 19:12 | ED.RN ---
This RN called [facility] per patient req.
[2024-06-23] MEDS: Ceftriaxone 2 GM in 0.9% Normal Saline (50mL MB+) 50 ML IV (19:44)
[2024-06-23] MEDS: 0.9% Normal Saline (1000mL) 1,000 ML 1000 ML IV (19:44)
[2024-06-23 19:45] LABS: Troponin-I HS 50 pg/mL (3.0-54.0)
[2024-06-23] MEDS: Morphine 4 MG/ML Syringe IV (19:57)
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
[2024-06-23] MEDS: Azithromycin 500 MG in 0.9% Normal Saline (250mL Bag) 250 ML 255 MG IV (20:39)
--- NOTE | 2024-06-23 20:45 | CT_ITS ---
PROCEDURE: ABDOMEN/PELVIS W IV CONT ONLY REASON FOR EXAM: Pain TECHNIQUE: Abdomen and pelvis CT with intravenous contrast. COMPARISON: CT from 2021.. FINDINGS: Lung bases: Dense right base consolidation Liver: Cirrhotic morphology. Stent in place.. Gallbladder: Unremarkable. Spleen: Unremarkable. Pancreas: Unremarkable. Adrenals: Unremarkable. Kidneys: Unremarkable. Bladder: Unremarkable. Reproductive Organs: Unremarkable. Innumerable dilated loops of small bowel measuring up to approximately 4.7 cm in greatest transaxial dimension. Transition point not confidently identified but appears to localize to the distal small bowel. No free fluid no definitive bowel wall thickening at this time. Numerous air-fluid levels are seen however Lymph nodes: No suspicious lymph node enlargement. Vasculature: Major vascular structures are unremarkable. Peritoneum / Retroperitoneum: No ascites. No free air. Bones: Prominent multilevel degenerative changes. Bone loss.. CT/Abdomen/Pelvis W IV Cont ONLY IMPRESSION: Numerous dilated loops of small bowel new from priors suggesting distal small b owel obstruction. No free fluid. Right lower lobe pneumonia partially visualized One or more dose reduction techniques were used (e.g., Automated exposure contr ol, adjustment of the mA and/or kV according to patient size, use of iterative reconstruction technique). Reading [facility]
[2024-06-23 22:15] LABS: Reflex Lactate? Y
[2024-06-23 23:04] LABS: Allen Test Positive; Base Excess 1 mmol/L (-2 to +2); Bicarbonate 23.7 mmol/L (22-26); Blood Gas Specimen Type ART; Mode Not entered; O2 Delivery Device Cannula; PO2 70 mmHG (75-100); SITE L Radial; SO2 95 % (95-99); Total Carbon Dioxide 25 mmol/L; pCO2 30.8 mmHg (35-45)
[2024-06-24] VITALS (20 sets, daily range): BP systolic 98–152; BP diastolic 56–90; PULSE 75–122; RESP 16–26; TEMP 36.5–37.3; O2SAT 92–98; BMI 20.9
[2024-06-24] MEDS: 0.9% Normal Saline (1000mL) 1,000 ML 125 ML IV ×2 (00:15→07:57)
[2024-06-24] MEDS: MethylPREDNISolone 125 MG/2 ML Vial IV (00:16)
[2024-06-24] MEDS: Multivitamins 10 ML in 0.9% Normal Saline (1000mL) 1,000 ML 999 ML IV (00:57)
[2024-06-24] MEDS: Vancomycin HCl 1,500 MG in 0.9% Normal Saline (500mL Bag) 500 ML 250 MG IV (00:57)
[2024-06-24] MEDS: Morphine 2 MG/ML Syringe IV ×5 (01:32→21:28)
[2024-06-24 02:27] LABS: Troponin-I HS 27 pg/mL (3.0-54.0)
[2024-06-24 02:30] LABS: CPK Total, Creatine Kinase 53 U/L (26-192); Cholesterol 64 mg/dL (200); High Density Lipoprotein 30 mg/dL; Lactic Acid 2.8 mmol/L (0.4-1.9); Triglycerides 48 mg/dL; Very Low Density Lipoprotein 10 mg/dL (5-40)
[2024-06-24 03:12] LABS: Amphetamine Urine NEGATIVE (<1000 ng/mL); Barbiturate Urine VISTA NEGATIVE (< 200 ng/mL); Benzodiazepine Urine VISTA NEGATIVE (< 200 ng/mL); Cocaine Urine VISTA NEGATIVE (< 300 ng/mL); Ecstacy Urine VISTA NEGATIVE (< 500 ng/mL); Methadone Urine VISTA NEGATIVE (< 300 ng/mL); PCP Urine VISTA NEGATIVE (< 25 ng/mL); THC Urine VISTA NEGATIVE (< 50 ng/mL); Vista UDS pH Range 6
--- NOTE | 2024-06-24 03:25 | PCM.RX.CS ---
Consult Antibiotic Management Pharmacy has been consulted to manage selected antibiotic: Vancomycin Type of Intervention Type of Consult: New start Suspected Infection Suspected Infection: Sepsis and Pneumonia Labs Labs: Sodium 141 mmol/L (136-145) 06/23/24 16:23 Potassium 5.0 mmol/L (3.5-5.1) 06/23/24 16:23 Chloride 112 mmol/L (98-107) H 06/23/24 16:23 Carbon Dioxide 22.0 mmol/L (21.0-32.0) 06/23/24 16:23 Anion Gap 7 (5-15) 06/23/24 16:23 BUN 29 mg/dL (7-18) H 06/23/24 16:23 Creatinine 0.54 mg/dL (0.55-1.02) L 06/23/24 16:23 Est GFR (MDRD) Af Amer 148 mL/min (>60) 06/23/24 16:23 Est GFR (MDRD) Non-Af 122 mL/min (>60) 06/23/24 16:23 BUN/Creatinine Ratio 54.0 RATIO (10-20) H 06/23/24 16:23 Glucose 121 mg/dL (74-106) H 06/23/24 16:23 Dosing Weight Weight used for dosin kg Estimated Creatinine Clearance Estimated Creatinine Clearance: 105 Goal Trough Goal Trough: 15-20 mcg/mL Pharmacy Plan for Drug Dosing Pharmacy Plan for Drug Dosing: Pharmacy Service will continue to monitor and adjust dosing as required. Follow-Up Labs Follow-Up Labs: Trough: Vancomycin Date/Time Labs Ordered Labs to be done on [date and time ordered]: 06/25/24 @0030
[2024-06-24] MEDS: Piperacil/Tazobactam 3.375 GM in 0.9% Normal Saline (50mL MB+) 50 ML IV ×3 (03:26→21:43)
[2024-06-24] MEDS: Oxymetazoline 0.05% 1 SPRAY SPRAY.BTL 2 SPRAY NASAL (04:09)
--- NOTE | 2024-06-24 04:20 | RAD_ITS ---
PROCEDURE: CHEST 1 VIEW (PORTABLE) REASON FOR EXAM: COPD. TECHNIQUE: Single frontal image including the chest and upper abdomen. COMPARISON: Portable chest dated 06/23/2024. FINDINGS: Normal heart size. No mediastinal widening. No hilar masses. Aorta is atherosclerotic and tortuous. Stable right basilar opacification. Blunting of the right lateral costophrenic angle. No pneumonia or congestion. Centrilobular emphysematous changes are suspected. The bones are unremarkable. Metallic plate related to lower cervical fusion. Cardiac monitoring leads overlie the chest wall. RAD/Chest 1 View (Portable) IMPRESSION: Stable chest when compared to the previous study of 06/23/2024. Reading Location: [facility]
--- NOTE | 2024-06-24 05:55 | RAD_ITS ---
PROCEDURE: ABDOMEN SINGLE VIEW (PORTABLE) REASON FOR EXAM: Nasogastric tube placement. Suspected small-bowel obstruction. TECHNIQUE: Single view abdomen. COMPARISON: CT abdomen and pelvis dated 06/23/2024 FINDINGS: Multiple gas distended loops of small bowel. Sparse gas in the colon. Tip of the nasogastric tube is in the region of the body of the stomach. No signs pneumoperitoneum. A wall stent projects over the right upper quadrant. Metallic surgical clips in the right upper quadrant. Right hip orthopedic screws related to fracture reduction. Serrato catheter projects over the lower pelvis. RAD/Abdomen Single View (Portable) IMPRESSION: 1. Findings consistent with small-bowel obstruction. 2. Tip of the nasogastric tube is in good position. 3. Other nonacute findings detailed above. Reading Location: [facility]
[2024-06-24 06:35] LABS: Alcohol, Blood (Medical)-Serum < 3.0 mg/dL
--- NOTE | 2024-06-24 06:51 | PCM.PN.HOSP ---
Reason for Visit Reason for Visit: Shortness of breath Subjective Subjective Patient states she wears 2 L of oxygen at baseline. Still complains of some shortness of breath. Is coughing but not producing any sputum. States her stomach feels better now that the NG is in and decompressing. Asks if she can have some ice chips. Was recently admitted here and discharged on 06/21/2024. At that time she was found to have parainfluenza 3 virus. Had no abdominal symptoms at that time. Objective Data Objective Data Vital Signs: Vital Signs Temp Pulse Resp BP Pulse Ox O2 Del Method O2 Flow Rate 99.1 F 102 H 18 98/56 L 97 Nasal Cannula 2 06/24/24 06:00 06/24/24 06:00 06/24/24 06:00 06/24/24 06:00 06/24/24 06:00 06/24/24 06:00 06/24/24 06:00 Oxygen Flow Rate (L/min) 2 Oxygen Delivery Method Nasal Cannula Weight: 62.4 kg Body Mass Index (BMI) 20.9 Intake & Output: Intake and Output for Last 24 Hours 06/22/24 06/23/24 06/24/24 23:59 23:59 23:59 Intake Total 2305 / 2305 1740 / 1740 Output Total 325 / 325 Balance 2305 / 2305 1415 / 1415 Lab / Micro Data 06/23/24 16:23 06/23/24 16:23 Labs: Laboratory Results - last 24 hr 06/23/24 16:23: WBC 22.2 H, RBC 4.54, Hgb 14.7, Hct 44.2, MCV 97.4 D, MCH 32.4 H, MCHC 33.3 D, RDW Std Deviation 54.3 H, RDW Coeff of Heath 15.5 H, Plt Count 121 L, MPV 10.5, Immature Gran % (Auto) 0.600, Neut % (Auto) 79.8 H, Lymph % (Auto) 6.9 L, Kenedy % (Auto) 11.4 H, Eos % (Auto) 0.4, Baso % (Auto) 0.9, Absolute Neuts (auto) 17.7 H, Absolute Lymphs (auto) 1.53, Nucleated RBC % 0, Diff Path Review September, Platelet Estimate SLT DEC, RBC Morphology NORM C+C, Sodium 141, Potassium 5.0, Chloride 112 H, Carbon Dioxide 22.0, Anion Gap 7, BUN 29 H, Creatinine 0.54 L, Estim Creat Clear Calc 105.38, Est GFR (MDRD) Af Amer 148, Est GFR (MDRD) Non-Af 122, BUN/Creatinine Ratio 54.0 H, Glucose 121 H, Calcium 8.5, Total Bilirubin 3.30 H, AST 59 H, ALT 30, Alkaline Phosphatase 94, Troponin I High Sens 52, Total Protein 5.3 L, Albumin 2.2 L, Globulin 3.1, Albumin/Globulin Ratio 0.7 L 06/23/24 16:50: Urine Color Ivon, Urine Clarity Clear, Urine pH 6.5, Ur Specific Somers 1.015, Urine Protein 30 H, Urine Glucose (UA) Normal, Urine Ketones 50 H, Urine Occult Blood 10 H, Urine Nitrite Positive H, Urine Bilirubin 3 H, Urine Urobilinogen 4 H, Ur Leukocyte Esterase 25 H, Urine RBC 0-5 SEEN, Urine WBC 0-5 SEEN, Ur Squamous Epith Cells 0 SEEN, Urine Bacteria 1+, Urine Mucus 2+, Urine Opiates Screen POSITIVE H, Urine Methadone Screen NEGATIVE, Ur Barbiturates Screen NEGATIVE, Ur Phencyclidine Scrn NEGATIVE, Ur Amphetamines Screen NEGATIVE, MDMA (Ecstasy) Screen NEGATIVE, U Benzodiazepines Scrn NEGATIVE, Urine Cocaine Screen NEGATIVE, U Cannabinoids Screen NEGATIVE, Ur Drug Screen Comment 06/23/24 17:05: Lactic Acid Cancelled 06/23/24 17:49: PT 18.4 H, INR 1.5, APTT 25.7 06/23/24 18:07: Lactic Acid 3.6 H* 06/23/24 18:37: Troponin I High Sens 50 06/24/24 01:48: Lactic Acid 2.8 H*, Total Creatine Kinase 53, Troponin I High Sens 27, Triglycerides 48, Cholesterol 64, LDL Cholesterol 24, VLDL Cholesterol 10, HDL Cholesterol 30 L 06/24/24 05:18: Ethyl Alcohol < 3.0 Micro: Microbiology 06/23/24 16:50 Urine, Random Legionella Antigen - Final 06/23/24 16:50 Urine, Random Streptococcus pneumoniae Antigen (M - Final ABG Data ABG results: ABG 06/23/24 23:00 Specimen Type ART Sample Site L Radial pH 7.50 H Bicarbonate Actual 23.7 Total CO2 25 Base Excess 1 O2 Saturation 95 O2 % 3.0 ABG pCO2 30.8 L ABG pO2 70 L Leighton Test Positive O2 Delivery Device Cannula Vent Mode Not entered Radiography Diagnostic Testing: Radiology Impression Chest X-Ray 06/23/24 17:50 IMPRESSION: Right pleural effusion with overlying airspace disease. Reading Location: [facility] Abdomen/Pelvis CT 06/23/24 20:45 IMPRESSION: Numerous dilated loops of small bowel new from priors suggesting distal small bowel obstruction. No free fluid. Right lower lobe pneumonia partially visualized One or more dose reduction techniques were used (e.g., Automated exposure control, adjustment of the mA and/or kV according to patient size, use of iterative reconstruction technique). Reading Location: [facility] Chest X-Ray 06/24/24 04:20 IMPRESSION: Stable chest when compared to the previous study of 06/23/2024. Reading Location: [facility] X-Ray 06/24/24 05:55 IMPRESSION: 1. Findings consistent with small-bowel obstruction. 2. Tip of the nasogastric tube is in good position. 3. Other nonacute findings detailed above. Reading Location: [facility] Physical Exam Const alert, oriented x3 and no apparent distress Constitutional Narrative: Thin, middle-aged, white female, sitting up in bed, appears older than stated age, NG tube in place but patient currently appears comfortable, does not look toxic HEENT head/scalp atraumatic HEENT Narrative: Mallampati is 2, no thrush, mucous membranes are dry, NG tube in place Head and Scalp: normocephalic Resp no retractions and no use of accessory muscles Resp Narrative: Coarse breath sounds throughout bilateral lung harris, crackles in the right base, on 2 L nasal cannula no signs of respiratory distress Cardio regular rate, regular rhythm, S1 normal heart sound, S2 normal heart sound, no murmurs, no rub, no gallops and no clicks GI GI Narrative: Abdomen is distended but soft, mild diffuse tenderness, bowel sounds are hypoactive Extremity no clubbing, cyanosis or edema Extremity Narrative: Decreased lean muscle mass, pedal pulses and radial pulses are 2+ Neuro oriented x3, moves all extremities and no focal motor deficits Speech: speech normal Psych Psych Narrative: Affect is slightly flat but appropriate for the situation, patient interacts appropriately Assessment & Plan Assessment/Plan (1) Small bowel obstruction: (2) Leukocytosis: QUALIFIERS: Leukocytosis type: unspecified Qualified Code(s): D72.829 - Elevated white blood cell count, unspecified (3) Lactic acidosis: (4) Chronic hypoxic respiratory failure: (5) Infection due to parainfluenza virus 3: PLAN: Plan SBO -Patient with history of abdominal surgery with partial hysterectomy -Highly anticipate that this may be more ileus than small bowel obstruction with recent admission for illness however she does admit that she was admitted for something like this previously and it resolved on its own without surgical intervention -Had about 500 of OG last night -Plan from general surgery is to continue decompression day with plans for small bowel follow-through tomorrow -Will continue antibiotics for now utilizing Zosyn Shortness of breath with chronic hypoxic respiratory failure secondary to parainfluenza virus infection with possible underlying right lower lobe pneumonia -Sepsis ruled out as suspect lactic acidosis related to the above and patient with chronic hyperbilirubinemia from cirrhosis -Patient does have known parainfluenza 3 virus infection -She is coughing up some sputum intermittently -Will send sputum culture if able -Still positive for parainfluenza 3 -Small pleural effusion noted but not enough to tap -Patient does have right lower lobe infiltrate -Continue vancomycin and Zosyn -Strep pneumo and Legionella antigens are negative -Blood cultures are pending -Sputum culture has not yet been able to be collected -Continue Solu-Medrol but transition to 40 every 8 -Add aggressive pulmonary toilet -Continue I-S -Add Acapella -add Mucinex 1200 p.o. twice daily -Patient did complete a course of Levaquin at her last hospitalization Lactic acidosis -Secondary to the above -Patient hemodynamically stable -Doubt related to sepsis Leukocytosis -Patient has been on steroids plus with the above -Will continue to monitor -Continue antibiotics -Cultures in progress Chronic thrombocytopenia -Secondary to cirrhosis and splenomegaly -Platelet counts are 121,000 and stable -Okay for DVT prophylaxis that she is hypercoagulable with her liver disease at baseline -Will stop prophylactic Lovenox only if platelet count drops below 75,000 or patient develops bleeding GERD/history of H. pylori infection -Continue home PPI Chronic hypoxic respiratory failure secondary to COPD -Home inhalers on hold -Continue supplemental oxygen-is on baseline currently with 2 L -Will need ambulatory pulse ox prior to discharge -Acute treatment as above Cirrhosis -History of hepatitis C due to IVDU -Continue home lactulose -Outpatient follow-up with GI--> Per last note she has been referred for liver transplant History of IVDU -Remote Tobacco use -Ongoing -Nicotine patch available as needed -Recommend cessation DVT prophylaxis -Add enoxaparin daily CODE STATUS Full code Charges/Coding Visit Charges Inpatient E&M: 93200 Subs Hosp L2
[2024-06-24] MEDS: Ipratropium/Albuterol Sulfate 3 ML AMPUL.NEB INHALATION ×3 (07:38→20:00)
[2024-06-24] MEDS: Vancomycin HCl 750 MG in 0.9% Normal Saline (250mL Bag) 250 ML 250 MG IV ×2 (07:59→17:13)
[2024-06-24] MEDS: Ondansetron 4 MG/2 ML Vial IV ×4 (08:11→21:32)
--- NOTE | 2024-06-24 08:21 | EX.PCM.CON.S ---
Assessment & Plan Assessment/Plan (1) Small bowel obstruction: PLAN: The patient has a history of partial hysterectomy. The patient has been dealing with her pneumonia and this happened during discharge home. I think it would be highly unlikely that the patient have a small bowel obstruction while dealing with a pneumonia and it is likely an ileus. There is some gas and stool in her colon. The patient did have 500 cc out of her NG overnight and it is dark in color. I would like to decompress her today with the NG tube and continue to observe. Likely small bowel follow-through tomorrow. Continue antibiotics. The patient also had a bilirubin of 3 but she has a Wall stent in place and I am unsure as to the reason for this. The patient does have cirrhosis. Shakir Fritz MD Pager: [facility] [address] [place] [address], [address] [place] [address] Office: HPI Consult Data Date of Consult: 06/24/24 HPI Narrative HPI Narrative: BRET SIMS, is a 63 F who presents with tachycardia 2 days after being discharged with pneumonia. The patient was found to be septic and admitted to the ICU. She was also found to have a possible bowel obstruction on CT scan. The patient reports no flatus. Her last bowel movement was yesterday before coming into the hospital. She did vomit in the squad. [facility] Medical History Left rotator cuff tear arthropathy Vision problems Neuropathy Breast lump Left shoulder pain Oral candidiasis History of illicit drug use Pleural effusion on right Heroin addiction History of alcoholism Anxiety and depression History of hepatitis C Tobacco dependence due to cigarettes Vitamin D deficiency Thrombocytopenia Degenerative arthritis Restless legs Injury of head and neck Fall at home Closed subcapital fracture of neck of right femur Cirrhosis of liver Impetigo Cystitis Back pain Hyperlipidemia Seasonal allergies Atopic dermatitis H pylori ulcer COPD (chronic obstructive pulmonary disease) Home Medications ?Medication ?Instructions ?Recorded ?Last Taken ?Type pantoprazole 40 mg tablet,delayed 40 mg PO DAILY 06/30/22 Unknown History release (Protonix) albuterol sulfate 90 mcg/actuation 2 inh inhalation Q6H PRN shortness 07/07/22 06/13/24 Rx breath activated powder inhaler of breath or wheezing #1 ea ondansetron 4 mg disintegrating 4 mg translingual Q8H PRN nausea 08/03/22 Unknown History tablet and vomiting albuterol sulfate 2.5 mg/3 mL 2.5 mg inhalation UD 06/14/24 06/13/24 History (0.083 %) solution for nebulization budesonide-formoterol HFA 160 2 puff inhalation Q12H 06/14/24 06/13/24 History mcg-4.5 mcg/actuation aerosol inhaler (Symbicort) gabapentin 600 mg tablet 600 mg PO QHS PRN pain 06/14/24 06/13/24 History lactulose 10 gram/15 mL oral 10 g PO TID PRN constipation 06/14/24 Unknown History solution (Constulose) mupirocin 2 % topical ointment 1 applic topical TID PRN skin 06/14/24 Unknown History irritation oxycodone-acetaminophen 5 mg-325 1 tab PO BID PRN pain 06/14/24 06/14/24 History mg tablet nicotine 21 mg/24 hr daily 21 mg transdermal DAILY #30 ea 06/21/24 Unknown Rx transdermal patch prednisone 20 mg tablet 40 mg (2 x 20 mg) PO DAILY #10 tabs 06/21/24 Unknown Rx Allergy/AdvReac Type Severity Reaction Status Date / Time trazodone Allergy Mild leg cramps Verified 06/23/24 16:08 naproxen (From Naprosyn) AdvReac Upset Verified 06/23/24 16:08 Stomach tramadol AdvReac Itching Verified 06/23/24 16:08 Family History Mother FH: mental illness HLD (hyperlipidemia) Thyroid disorder Aunt No problems noted. Grandmother Heart disease Myocardial infarction Aunt Diabetes HLD (hyperlipidemia) Hypertension Grandfather COPD (chronic obstructive pulmonary disease) Sister Skin cancer Other Anxiety Arthritis Surgical History S/P TIPS (transjugular intrahepatic portosystemic shunt) History of breast biopsy History of D&C History of open reduction and internal fixation (ORIF) procedure Cervical vertebral fusion History of back surgery S/P shoulder surgery H/O colonoscopy History of esophagogastroduodenoscopy (EGD) H/O: hysterectomy S/P cholecystectomy History of back surgery Status post lumbar surgery Social History adopted: No household members: other details: Her granddaughter lives with her (17 years old). She has custody X 11 year housing: apartment number of children: 3 current occupational status: unemployed Smoking Status: Former smoker Tobacco: How many years used: 32 Electronic Cigarette Use: not used how long ago did patient quit smoking: started smoking at age 28 and smoked 1/2- 1.5 PPD....she is still smoking alcohol intake: former substance use type: former substance user do you feel safe at home: Yes ROS Constitutional Constitutional: Reports fatigue; Denies anorexia or chills Eyes Eyes: Denies blurry vision ENT HEENT: Denies abnormal hearing Cardiovascular Cardiovascular: Denies chest pain Respiratory/Chest Respiratory/Chest: Reports cough and dyspnea Gastrointestinal Gastrointestinal: Reports abdominal pain, nausea and vomiting Genitourinary Genitourinary: Reports change in urinary stream Musculoskeletal Musculoskeletal: Reports abnormal gait Endocrine Endocrinology: Reports flushing Hematologic/Lymphatic Hematologic/Lymphatic: Reports easy bleeding Physical Exam Const alert and oriented x3 HEENT normocephalic Eyes PERRL Resp normal respiratory effort Cardio Rate: tachycardic GI soft to palpation Inspection: abdominal distention Palpation: tender Extremity normal to inspection Lab / Micro Data 06/23/24 16:23 06/23/24 16:23 Labs: Laboratory Results - last 24 hr 06/23/24 16:23: WBC 22.2 H, RBC 4.54, Hgb 14.7, Hct 44.2, MCV 97.4 D, MCH 32.4 H, MCHC 33.3 D, RDW Std Deviation 54.3 H, RDW Coeff of Heath 15.5 H, Plt Count 121 L, MPV 10.5, Immature Gran % (Auto) 0.600, Neut % (Auto) 79.8 H, Lymph % (Auto) 6.9 L, Cottle % (Auto) 11.4 H, Eos % (Auto) 0.4, Baso % (Auto) 0.9, Absolute Neuts (auto) 17.7 H, Absolute Lymphs (auto) 1.53, Nucleated RBC % 0, Diff Path Review May foll, Platelet Estimate SLT DEC, RBC Morphology NORM C+C, Sodium 141, Potassium 5.0, Chloride 112 H, Carbon Dioxide 22.0, Anion Gap 7, BUN 29 H, Creatinine 0.54 L, Estim Creat Clear Calc 105.38, Est GFR (MDRD) Af Amer 148, Est GFR (MDRD) Non-Af 122, BUN/Creatinine Ratio 54.0 H, Glucose 121 H, Calcium 8.5, Total Bilirubin 3.30 H, AST 59 H, ALT 30, Alkaline Phosphatase 94, Troponin I High Sens 52, Total Protein 5.3 L, Albumin 2.2 L, Globulin 3.1, Albumin/Globulin Ratio 0.7 L 06/23/24 16:50: Urine Color Ivon, Urine Clarity Clear, Urine pH 6.5, Ur Specific [place] 1.015, Urine Protein 30 H, Urine Glucose (UA) Normal, Urine Ketones 50 H, Urine Occult Blood 10 H, Urine Nitrite Positive H, Urine Bilirubin 3 H, Urine Urobilinogen 4 H, Ur Leukocyte Esterase 25 H, Urine RBC 0-5 SEEN, Urine WBC 0-5 SEEN, Ur Squamous Epith Cells 0 SEEN, Urine Bacteria 1+, Urine Mucus 2+, Urine Opiates Screen POSITIVE H, Urine Methadone Screen NEGATIVE, Ur Barbiturates Screen NEGATIVE, Ur Phencyclidine Scrn NEGATIVE, Ur Amphetamines Screen NEGATIVE, MDMA (Ecstasy) Screen NEGATIVE, U Benzodiazepines Scrn NEGATIVE, Urine Cocaine Screen NEGATIVE, U Cannabinoids Screen NEGATIVE, Ur Drug Screen Comment 06/23/24 17:05: Lactic Acid Cancelled 06/23/24 17:49: PT 18.4 H, INR 1.5, APTT 25.7 06/23/24 18:07: Lactic Acid 3.6 H* 06/23/24 18:37: Troponin I High Sens 50 06/24/24 01:48: Lactic Acid 2.8 H*, Total Creatine Kinase 53, Troponin I High Sens 27, Triglycerides 48, Cholesterol 64, LDL Cholesterol 24, VLDL Cholesterol 10, HDL Cholesterol 30 L 06/24/24 05:18: Ethyl Alcohol < 3.0 Micro: Microbiology 06/24/24 01:20 Mucosa - Nose Respiratory Panel (PCR) - Final Parainfluenza 3 06/23/24 16:50 Urine, Random Legionella Antigen - Final 06/23/24 16:50 Urine, Random Streptococcus pneumoniae Antigen (M - Final ABG Data ABG results: ABG 06/23/24 23:00 Specimen Type ART Sample Site L Radial pH 7.50 H Bicarbonate Actual 23.7 Total CO2 25 Base Excess 1 O2 Saturation 95 O2 % 3.0 ABG pCO2 30.8 L ABG pO2 70 L Leighton Test Positive O2 Delivery Device Cannula Vent Mode Not entered Imaging Radiology Impression Chest X-Ray 06/23/24 17:50 IMPRESSION: Right pleural effusion with overlying airspace disease. [facility]/Pelvis CT 06/23/24 20:45 IMPRESSION: Numerous dilated loops of small bowel new from priors suggesting distal small bowel obstruction. No free fluid. Right lower lobe pneumonia partially visualized One or more dose reduction techniques were used (e.g., Automated exposure control, adjustment of the mA and/or kV according to patient size, use of iterative reconstruction technique). Reading Location: [facility] Chest X-Ray 06/24/24 04:20 IMPRESSION: Stable chest when compared to the previous study of 06/23/2024. Reading Location: [facility] X-Ray 06/24/24 05:55 IMPRESSION: 1. Findings consistent with small-bowel obstruction. 2. Tip of the nasogastric tube is in good position. 3. Other nonacute findings detailed above. Reading Location: [facility]
[2024-06-24] MEDS: Pantoprazole Sodium 40 MG in 0.9% Normal Saline (100mL MB+) 100 ML 330 MG IV (09:52)
--- NOTE | 2024-06-24 16:10 | CASEMGMT ---
FLYNN GONZALEZ Assessment: Face to Face with pt for initial transition planning/care coordination assessment. FLYNN GONZALEZ introduced self and role at [facility], pt voices understanding and consents to assessment. Pt is A&O x4 and answers all questions appropriately at this time. Pt is lying in bed in no distress. Care providers, pharmacy, and demographics verified/updated. Admitting Dx: RLL PNA, AE COPD, RESP. INSUFFICIENCY PCP: Munir Specialists: Gastrologist, Paulo; Housekeeper Caregiver, [facility] Preferred Pharmacy: [facility] Insurance: [facility] Community Plan SOFÍA Prescription Benefit: yes LNOK: Daughter, Le Living Arrangements: Pt lives alone in an efficiency apartment with no steps to enter. ADLs: Pt states I at baseline. Transportation: Pt daughter provides transportation. DME: walker, cane, O2 through [facility]. HHC/SNF: Pt was setting up HHC with [facility]. Pt feels unsure if she is able to manage at home by her self. PT and OT are ordered, will follow for recommendations. Pt states no further concerns/needs. CM to follow. Advised pt to ask CM if any further question/concerns/needs arise, voices understanding. Pt Goal: TBD Plan: TBD, follow therapy for recommendations. Follow for any O2 changes. Fawn PRUETT CM
[2024-06-24] MEDS: Enoxaparin 40 MG/0.4 ML Syringe SC (21:40)
[2024-06-24] MEDS: Phenol/Sodium Phenolate 180ML 3 SPRAY MUCOUS MEM (23:38)
[2024-06-24] MEDS: LORazepam 2 MG/ML Syringe 0.5 MG IV (23:38)
[2024-06-24] MEDS: Mupirocin Ointment 22gm Tube 1 APPLIC TOPICAL (23:41)
[2024-06-25] VITALS (9 sets, daily range): BP systolic 129–154; BP diastolic 60–84; PULSE 52–116; RESP 16–20; TEMP 36.2–36.6; O2SAT 93–97; BMI 22.1
[2024-06-25 00:56] LABS: Vancomycin, Trough Level 14.3 ug/mL (5.0-15.0)
--- NOTE | 2024-06-25 01:10 | PCM.RX.CS ---
Consult Antibiotic Management Pharmacy has been consulted to manage selected antibiotic: Vancomycin Type of Intervention Type of Consult: Follow-up Suspected Infection Suspected Infection: Sepsis and Pneumonia Labs Labs: Sodium 141 mmol/L (136-145) 06/23/24 16:23 Potassium 5.0 mmol/L (3.5-5.1) 06/23/24 16:23 Chloride 112 mmol/L (98-107) H 06/23/24 16:23 Carbon Dioxide 22.0 mmol/L (21.0-32.0) 06/23/24 16:23 Anion Gap 7 (5-15) 06/23/24 16:23 BUN 29 mg/dL (7-18) H 06/23/24 16:23 Creatinine 0.54 mg/dL (0.55-1.02) L 06/23/24 16:23 Est GFR (MDRD) Af Amer 148 mL/min (>60) 06/23/24 16:23 Est GFR (MDRD) Non-Af 122 mL/min (>60) 06/23/24 16:23 BUN/Creatinine Ratio 54.0 RATIO (10-20) H 06/23/24 16:23 Glucose 121 mg/dL (74-106) H 06/23/24 16:23 Vancomycin Trough 14.3 ug/mL (5.0-15.0) 06/25/24 00:32 Microbiology Microbiology: Microbiology 06/24/24 01:20 Mucosa - Nose Respiratory Panel (PCR) - Final Parainfluenza 3 06/23/24 16:50 Urine, Random Legionella Antigen - Final 06/23/24 16:50 Urine, Random Streptococcus pneumoniae Antigen (M - Final Dosing Weight Weight used for dosin.4 kg Estimated Creatinine Clearance Estimated Creatinine Clearance: 105 Goal Trough Goal Trough: 15-20 mcg/mL Pharmacy Plan for Drug Dosing Pharmacy Plan for Drug Dosing: Vancomycin trough level of 14.3, drawn 7.25hrs post-dose, was below the target range of 15-20. Will increase dose to 1000mg q8h, and will draw another trough prior to 4th dose of the new regimen. Pharmacy Service will continue to monitor and adjust dosing as required. Follow-Up Labs Follow-Up Labs: Trough: Vancomycin Date/Time Labs Ordered Labs to be done on [date and time ordered]: 06/26/24 @0030
[2024-06-25] MEDS: Vancomycin Trough/Random Due 1 LAB MC (01:11)
[2024-06-25] MEDS: Vancomycin IV 1,000 MG/200 ML BAG 200 MG IV ×3 (01:11→17:10)
[2024-06-25] MEDS: Morphine 2 MG/ML Syringe IV ×5 (01:28→20:03)
[2024-06-25] MEDS: Ondansetron 4 MG/2 ML Vial IV ×5 (01:28→20:03)
[2024-06-25] MEDS: Phenol/Sodium Phenolate 180ML 3 SPRAY MUCOUS MEM ×2 (01:38→05:00)
[2024-06-25] MEDS: Piperacil/Tazobactam 3.375 GM in 0.9% Normal Saline (50mL MB+) 50 ML IV ×3 (05:33→22:01)
[2024-06-25 06:11] LABS: Absolute Lymphocyte Count 0.69 X10^3/uL (0.83-4.51); Absolute Neutrophil Count 16.5 X10^3/uL (2.0-7.7); Basophil# 0.06 X10^3/uL; Basophil% 0.3 % (0-1); Eosinophil# 0.13 X10^3/uL; Eosinophils% 0.7 % (0-5); Hematocrit 35.3 % (37-47); Lymphocyte # 0.69 X10^3/ul (0.83-4.51); Lymphocyte % 3.8 % (19-41); Mean Corpuscular Hgb 33.2 pg (27.0-32.0); Mean Corpuscular Volume 97.8 fL (81-99); Mean Platelet Vol. 10.2 fl (6.2-12.0); Monocyte# 0.83 X10^3/uL; Monocyte% 4.5 % (0-10); NRBC Flagged by Analyzer 0 % (0-5); Neutrophil # 16.54 X10^3/uL (2.7-7.7); Neutrophil % 89.9 % (47-70); Platelet Count 105 K/mm3 (150-450); RBC Distribution Width CV 15.5 % (11.6-14.6); RBC Distribution Width SD 54.9 fl (35.1-43.9); Red Blood Count 3.61 M/mm3 (4.2-5.4); White Blood Count 18.4 K/mm3 (4.4-11.0)
[2024-06-25 06:39] LABS: Anion Gap 8 (5-15); BUN 40 mg/dL (7-18); BUN/Creat Ratio 94.1 RATIO (10-20); Calcium,Total 8.3 mg/dL (8.5-10.1); Chloride 119 mmol/L (98-107); Creatinine, Serum 0.42 mg/dL (0.55-1.02); EST Glomerular Filtration Rate 160 mL/min (>60); Est Glom Filt Rate - Afr Amer 193 mL/min (>60); Glucose 128 mg/dL (74-106); Magnesium 2.3 mg/dL (1.6-2.6); Phosphorus 2.8 mg/dL (2.5-4.9); Potassium 3.8 mmol/L (3.5-5.1); Sodium Level 149 mmol/L (136-145)
[2024-06-25 06:40] LABS: Differential Indicated SCAN CRITERIA MET
[2024-06-25] MEDS: 0.45% Normal Saline 1,000 ML 100 ML IV ×2 (08:47→21:30)
[2024-06-25] MEDS: Enoxaparin 40 MG/0.4 ML Syringe SC (08:47)
--- NOTE | 2024-06-25 08:47 | PN.SURG_ITS ---
Subjective Subjective Patient reports no flatus. She is also having some cramping. She has not had any bowel function. She denies nausea or vomiting. NG tube is dark Objective Data Objective Data Vital Signs: Vital Signs Temp Pulse Resp BP Pulse Ox O2 Del Method O2 Flow Rate 98 F 114 H 18 129/76 H 94 Nasal Cannula 2 06/25/24 05:50 06/25/24 05:50 06/25/24 05:50 06/25/24 05:50 06/25/24 06:45 06/25/24 06:45 06/25/24 06:45 Oxygen Flow Rate (L/min) 2 Oxygen Delivery Method Nasal Cannula Weight: 145 lb 11.609 oz Body Mass Index (BMI) 22.1 Intake & Output: Intake and Output for Last 24 Hours 06/23/24 06/24/24 06/25/24 23:59 23:59 23:59 Intake Total 2305 / 2305 4502.5 / 4552.5 860 / 860 Output Total 1325 / 1475 875 / 875 Balance 2305 / 2305 3177.5 / 3077.5 -15 / -15 Lab / Micro Data 06/25/24 05:15 06/25/24 05:15 Labs: Laboratory Results - last 24 hr 06/23/24 16:23: B-Natriuretic Peptide 24.0 06/25/24 00:32: Vancomycin Trough 14.3 06/25/24 05:15: WBC 18.4 H, RBC 3.61 L, Hgb 12.0, Hct 35.3 L, MCV 97.8, MCH 33.2 H, MCHC 34.0, RDW Std Deviation 54.9 H, RDW Coeff of Heath 15.5 H, Plt Count 105 L , MPV 10.2, Immature Gran % (Auto) 0.800, Neut % (Auto) 89.9 H, Lymph % (Auto) 3.8 L, [place] % (Auto) 4.5, Eos % (Auto) 0.7, Baso % (Auto) 0.3, Absolute Neuts (auto) 16.5 H, Absolute Lymphs (auto) 0.69 L, Nucleated RBC % 0, Sodium 149 H, Potassium 3.8, Chloride 119 H, Carbon Dioxide 21.0, Anion Gap 8, BUN 40 H, C reatinine 0.42 L, Estim Creat Clear Calc 140.10, Est GFR (MDRD) Af Amer 193, Est GFR (MDRD) Non-Af 160, BUN/Creatinine Ratio 94.1 H, Glucose 128 H, Calcium 8.3 L , Phosphorus 2.8, Magnesium 2.3 Micro: Microbiology 06/24/24 01:20 Mucosa - Nose Respiratory Panel (PCR) - Final Parainfluenza 3 06/23/24 16:50 Urine, Random Legionella Antigen - Final 06/23/24 16:50 Urine, Random Streptococcus pneumoniae Antigen (M - Final Physical Exam Const oriented x3 and no apparent distress Resp normal respiratory effort GI soft to palpation Inspection: abdominal distention Palpation: tender Assessment & Plan Assessment/Plan (1) Small bowel obstruction: PLAN: The patient is still having cramping and no bowel function. She was decompressed for 24 hours via NG tube. NG put out 600 overnight. I will order a small bowel follow-through today. Shakir Fritz MD Pager: [facility] [address] [place] [address] [address] [place] [address] Office:
[2024-06-25] MEDS: Pantoprazole Sodium 40 MG in 0.9% Normal Saline (100mL MB+) 100 ML 330 MG IV (10:25)
--- NOTE | 2024-06-25 10:37 | NURSING ---
pt to x ray
--- NOTE | 2024-06-25 10:55 | RAD_ITS ---
PROCEDURE: ABDOMEN SINGLE VIEW (PORTABLE) REASON FOR EXAM: Pain TECHNIQUE: Single view abdomen. COMPARISON: Reviewed FINDINGS: Contrast opacifies numerous dilated loops of small bowel similar in caliber to prior exams. Large bowel does not appear opacified at this time. No free air. RAD/Abdomen Single View (Portable) IMPRESSION: As above. Reading Location: [facility]
--- NOTE | 2024-06-25 13:26 | PCM.PN.HOSP ---
Reason for Visit Reason for Visit: Shortness of breath Subjective Subjective NG is currently clamped for small bowel follow-through and patient notes that she is having some increased nausea. Breathing is stable and she is on her baseline oxygen. Cough is not really significantly productive. Family is at the bedside and I updated them on the current plan of care per discussion with Dr. Fritz as noted in assessment and plan Objective Data Objective Data Vital Signs: Vital Signs Temp Pulse Resp BP Pulse Ox O2 Del Method O2 Flow Rate 97.2 F L 102 H 16 151/77 H 94 Nasal Cannula 2 06/25/24 11:27 06/25/24 11:27 06/25/24 11:27 06/25/24 11:27 06/25/24 11:27 06/25/24 11:27 06/25/24 11:27 Oxygen Flow Rate (L/min) 2 Oxygen Delivery Method Nasal Cannula Weight: 66.1 kg Body Mass Index (BMI) 22.1 Intake & Output: Intake and Output for Last 24 Hours 06/23/24 06/24/24 06/25/24 23:59 23:59 23:59 Intake Total 2305 / 2305 4502.5 / 4552.5 1356.67 / 1356.67 Output Total 1325 / 1475 1000 / 1000 Balance 2305 / 2305 3177.5 / 3077.5 356.67 / 356.67 Lab / Micro Data 06/25/24 05:15 06/25/24 05:15 Labs: Laboratory Results - last 24 hr 06/25/24 00:32: Vancomycin Trough 14.3 06/25/24 05:15: WBC 18.4 H, RBC 3.61 L, Hgb 12.0, Hct 35.3 L, MCV 97.8, MCH 33.2 H, MCHC 34.0, RDW Std Deviation 54.9 H, RDW Coeff of Heath 15.5 H, Plt Count 105 L, MPV 10.2, Immature Gran % (Auto) 0.800, Neut % (Auto) 89.9 H, Lymph % (Auto) 3.8 L, [place] % (Auto) 4.5, Eos % (Auto) 0.7, Baso % (Auto) 0.3, Absolute Neuts (auto) 16.5 H, Absolute Lymphs (auto) 0.69 L, Nucleated RBC % 0, Sodium 149 H, Potassium 3.8, Chloride 119 H, Carbon Dioxide 21.0, Anion Gap 8, BUN 40 H, Creatinine 0.42 L, Estim Creat Clear Calc 140.10, Est GFR (MDRD) Af Amer 193, Est GFR (MDRD) Non-Af 160, BUN/Creatinine Ratio 94.1 H, Glucose 128 H, Calcium 8.3 L, Phosphorus 2.8, Magnesium 2.3 Micro: Microbiology 06/23/24 16:50 Urine, Catheterized Urine Culture - Preliminary Culture exhibits no growth. 06/24/24 01:20 Mucosa - Nose Respiratory Panel (PCR) - Final Parainfluenza 3 06/23/24 16:50 Urine, Random Legionella Antigen - Final 06/23/24 16:50 Urine, Random Streptococcus pneumoniae Antigen (M - Final Radiography Diagnostic Testing: Radiology Impression KUB X-Ray 06/25/24 10:55 IMPRESSION: As above. Reading Location: [facility] Physical Exam Const alert, oriented x3 and no apparent distress Constitutional Narrative: Thin, middle-aged, white female, sitting up in bed, appears older than stated age, NG tube in place but patient currently appears comfortable, does not look toxic, family at bedside General Appearance: cooperative HEENT normocephalic, head/scalp atraumatic, hearing grossly normal bilaterally and moist oral mucous membranes HEENT Narrative: NG tube in place, dentures in place, Mallampati 2, no thrush, temporal wasting present Resp normal respiratory effort, no retractions and no use of accessory muscles Resp Narrative: Coarse breath sounds especially noted in the right base with crackles noted, patient stable on her baseline 2 L nasal cannula Auscultation: crackles; Negative for rhonchi or wheezes Cardio regular rhythm, S1 normal heart sound, S2 normal heart sound, no murmurs, no rub, no gallops and no clicks Cardio Narrative: Mild tachycardia GI soft to palpation GI Narrative: Abdomen is distended but soft, mild diffuse tenderness, bowel sounds are hypoactive Extremity no clubbing, cyanosis or edema Extremity Narrative: Decreased lean muscle mass, pedal pulses and radial pulses are 2+ Skin Skin Narrative: Patient has no evidence of rash, abscess or wounds. Neuro oriented x3, moves all extremities and no focal motor deficits Speech: speech normal Psych affect normal Psych Narrative: Affect is less flat today with family at the bedside, appropriate Mood & Affect: anxious Assessment & Plan Assessment/Plan (1) Small bowel obstruction: (2) Leukocytosis: QUALIFIERS: Leukocytosis type: unspecified Qualified Code(s): D72.829 - Elevated white blood cell count, unspecified (3) Lactic acidosis: (4) Chronic hypoxic respiratory failure: (5) Infection due to parainfluenza virus 3: PLAN: Plan SBO -Patient with history of abdominal surgery with partial hysterectomy -Patient was decompressed overnight with NG tube to low intermittent suction -Small bowel follow-through done today and no contrast proceeded to the colon--> Per discussion with general surgery plan is for in a.m. KUB and if no contrast is getting the colon ex lap tomorrow -Will continue antibiotics for now utilizing Zosyn Shortness of breath with chronic hypoxic respiratory failure secondary to parainfluenza virus infection with previously treated right lower lobe pneumonia -Sepsis ruled out as suspect lactic acidosis related to the above and patient with chronic hyperbilirubinemia from cirrhosis -Patient does have known parainfluenza 3 virus infection -Continue vancomycin and Zosyn -Strep pneumo and Legionella antigens are negative -Patient is not producing any sputum to collect -Transition to Solu-Medrol 40 daily -Continue aggressive pulmonary toilet -Continue I-S -Continue Acapella -Continue Mucinex 1200 p.o. twice daily -Patient did complete a course of Levaquin at her last hospitalization Hypernatremia/hyperchloremia -Start half-normal saline at 75 cc/h for 3 L as patient is remaining n.p.o. -repeat lab in a.m. Lactic acidosis -Resolved Leukocytosis -Patient is on steroids for her lungs -Count is still trending down despite this -Urine cultures unremarkable -Blood cultures are still pending -She has completed treatment for her pneumonia and I think the abnormal finding on her CT of the chest is residual from her previous pneumonia -If blood cultures are negative would stop antibiotics if okay with general surgery Chronic thrombocytopenia -Secondary to cirrhosis and splenomegaly -Platelet count is 105,000 and relatively stable -Okay for DVT prophylaxis that she is hypercoagulable with her liver disease at baseline -Will stop prophylactic Lovenox only if platelet count drops below 75,000 or patient develops bleeding GERD/history of H. pylori infection -Continue home PPI Chronic hypoxic respiratory failure secondary to COPD -Home inhalers on hold -Continue supplemental oxygen-is on baseline currently with 2 L -Will need ambulatory pulse ox prior to discharge -Acute treatment as above Cirrhosis -History of hepatitis C due to IVDU -Continue home lactulose -Outpatient follow-up with GI--> Per last note she has been referred for liver transplant History of IVDU -Remote Tobacco use -Ongoing -Nicotine patch available as needed -Recommend cessation DVT prophylaxis -Continue subcu enoxaparin CODE STATUS Full code Charges/Coding Visit Charges Inpatient E&M: 04424 Subs Hosp L2
--- NOTE | 2024-06-25 13:45 | RAD_ITS ---
PROCEDURE: ABDOMEN SINGLE VIEW (PORTABLE) REASON FOR EXAM: Small-bowel obstruction. TECHNIQUE: Single view abdomen. COMPARISON: Same day portable AP abdomen at 1 hour post Gastrografin. FINDINGS: Nasogastric tube tip in the body of the stomach. Radiopaque wall stent and surgical clips project over the right upper quadrant. Multiple contrast distended loops of small bowel. Gas outlines the colon. Blunting of the right lateral costophrenic angle. Emphysematous changes in the visualized lungs. No suspicious calcifications. Multilevel spondylosis and degenerative disc disease of the lumbar spine. RAD/Abdomen Single View (Portable) IMPRESSION: 1. Bowel-gas pattern suggests an adynamic slice reflex ileus. 2. Suspicion of pleural fluid and or thickening at the right lung base. 3. COPD. 4. Other nonacute findings detailed above. Reading Location: [facility]
--- NOTE | 2024-06-25 17:00 | RAD_ITS ---
PROCEDURE: ABDOMEN SINGLE VIEW (PORTABLE) REASON FOR EXAM: Follow-up Gastrografin small bowel. TECHNIQUE: Single view abdomen. COMPARISON: Earlier study obtained 4 hours, same day. FINDINGS: Nasogastric tube is in place. A radiopaque wall stent projects over the right upper quadrant, most likely biliary. Metallic surgical clips in the right upper quadrant. Multiple contrast distended loops of small bowel. Gas is present in the colon. No suspicious calcifications. Three (3) orthopedic screws extend through the right hip. RAD/Abdomen Single View (Portable) IMPRESSION: Bowel-gas pattern suggests adynamic/reflex ileus. Reading Location: [facility]
[2024-06-26] VITALS (23 sets, daily range): BP systolic 102–151; BP diastolic 68–94; PULSE 86–127; RESP 14–24; TEMP 36.1–37.2; O2SAT 92–100; BMI 22.1
--- NOTE | 2024-06-26 | COL_PTH ---
PATIENT: BRET SIMS LOC: ICU U#:[id number] AGE/SX: 63/F ROOM: ICU07 RE06/23/[address]: Dr. Rain Moreno MD : [id number] BED: 1 DIS: 07/02/2024 SPEC #: [id number] RECD: 06/27/24 09:00 STATUS: GINNY REQ #: [id number] RAMBO: 06/26/24 00:[address]: Shakir Fritz DEPT: SURGICAL PATHOLOGY RECD BY: Al Moreno ENTERED: 06/27/24 09:01 SP TYPE: COLON OTHR DR: MD Dr. Benjamin Graf MD Dr. Adan Mora, MD Dr. Bruce Arthur, MD Dr. Derek Brown, DO Dr. Edgar Dugan, MD Dr. Jose R Staples Dr., MD Dr. Freedland Oliverio, MD Dr. Roselyn Rosales Dr., MD Dr. Hemant Dand, MD Dr. Jose Ochoa, MD Dr. Justin Wong, MD Dr. Kimber Foust, MD Dr. Kathryn Lee, MD Dr. Ana Magallanes Dr., MD Dr. Nana Yaa Koram, MD Dr. Pritam Ghosh, MD Dr. Pavan Irukulla, MD Dr. Saad Farooqi, MD Dr. Sukhdeep Dhesi, MD Dr. David Briggs Dr., MD Dr. Timothy Fernstrom, MD Dr. Bernardo Paulson Dr., MD Tissues: Colon, NOS Procedures: Surgery Specimen Level V Comments: @ Ordering doctor for SUV edited from to @ by BERNA at 06/27/24918 @ Submitting doctor edited from to @ by BERNA at 06/27/24918 HEADER OPERATION: Exploratory laparoscopy converted to open small bowel resection PRE-OP DIAGNOSIS: Small bowel obstruction TISSUE SUBMITTED: Small bowel segment MICROSCOPIC DIAGNOSIS Small bowel segment, segmental resection: Segment of small bowel with focal mild serosal congestion, clinically small bowel obstruction. Mesenteric tissue with congestion and hemorrhage. Small bowel donut: No pathologic diagnosis. 06/28/2024 MICROSCOPIC DESCRIPTION Slides are reviewed. GROSS DESCRIPTION Received in fixative is one container labeled with the patient's name and designated Small bowel segment. The specimen consists of a segment of bowel measuring 15cm in length. Attached mesenteric tissue is noted. Serosal surface is congested and focally ragged. Both resection margins are stapled. Lumen contains fecal material. No mucosal lesion is identified. Sections of mesenteric tissue do not reveal any obviously enlarged lymph nodes. Also present in the container is a donut shaped piece of bowel tissue measuring 3 x 1.5 x 1cm. Multiple jessica are noted. Weatherization Technician sections are submitted in five cassettes as follows: 1-4- segmental bowel (1- resection margins, 2&3- small bowel, 4- mesenteric tissue), 5- donut shaped piece of tissue. 06/27/2024 TC:5 CPT:44074, 94824
[2024-06-26 00:28] LABS: Vancomycin, Trough Level 21.5 ug/mL (5.0-15.0)
--- NOTE | 2024-06-26 00:57 | PCM.RX.CS ---
Consult Antibiotic Management Pharmacy has been consulted to manage selected antibiotic: Vancomycin Type of Intervention Type of Consult: Follow-up Suspected Infection Suspected Infection: Sepsis and Pneumonia Labs Labs: Sodium 149 mmol/L (136-145) H 06/25/24 05:15 Potassium 3.8 mmol/L (3.5-5.1) 06/25/24 05:15 Chloride 119 mmol/L (98-107) H 06/25/24 05:15 Carbon Dioxide 21.0 mmol/L (21.0-32.0) 06/25/24 05:15 Anion Gap 8 (5-15) 06/25/24 05:15 BUN 40 mg/dL (7-18) H 06/25/24 05:15 Creatinine 0.42 mg/dL (0.55-1.02) L 06/25/24 05:15 Est GFR (MDRD) Af Amer 193 mL/min (>60) 06/25/24 05:15 Est GFR (MDRD) Non-Af 160 mL/min (>60) 06/25/24 05:15 BUN/Creatinine Ratio 94.1 RATIO (10-20) H 06/25/24 05:15 Glucose 128 mg/dL (74-106) H 06/25/24 05:15 Vancomycin Trough 21.5 ug/mL (5.0-15.0) H 06/26/24 00:04 Microbiology Microbiology: Microbiology 06/23/24 16:50 Urine, Catheterized Urine Culture - Preliminary Culture exhibits no growth. 06/24/24 01:20 Mucosa - Nose Respiratory Panel (PCR) - Final Parainfluenza 3 06/23/24 16:50 Urine, Random Legionella Antigen - Final 06/23/24 16:50 Urine, Random Streptococcus pneumoniae Antigen (M - Final Dosing Weight Weight used for dosin.1 kg Estimated Creatinine Clearance Estimated Creatinine Clearance: 140 Goal Trough Goal Trough: 15-20 mcg/mL Pharmacy Plan for Drug Dosing Pharmacy Plan for Drug Dosing: Vancomycin trough level of 21.5 was above the target range of 15-20. However, this was drawn just under 7hrs post-dose and renal function has been improving. Therefore we will continue dosing at 1000mg q8h and will draw another trough in two days. Pharmacy Service will continue to monitor and adjust dosing as required. Follow-Up Labs Follow-Up Labs: Trough: Vancomycin Date/Time Labs Ordered Labs to be done on [date and time ordered]: 06/28/24 @0030
[2024-06-26] MEDS: Ondansetron 4 MG/2 ML Vial IV ×2 (01:35→05:52)
[2024-06-26] MEDS: Morphine 2 MG/ML Syringe IV ×2 (01:35→05:52)
[2024-06-26] MEDS: Vancomycin IV 1,000 MG/200 ML BAG 200 MG IV ×3 (01:36→18:13)
--- NOTE | 2024-06-26 02:41 | EKG12_ITS ---
Test Reason : CP Blood Pressure : */* mmHG Vent. Rate : 91 BPM Atrial Rate : 91 BPM P-R Int : 112 ms QRS Dur : 84 ms QT Int : 348 ms P-R-T Axes : 61 62 64 degrees QTcB Int : 428 ms Sinus rhythm with Premature atrial complexes Otherwise normal ECG When compared with ECG of 23-Jun-2024 17:03, MANUAL COMPARISON REQUIRED DATA IS UNCONFIRMED Confirmed by MICHAEL RAZO, MAEGAN ([id number]), fan mail editor FERNIE PHILLIP ([id number]) on 06/26/2024 8:29:26 AM Referred By: Edgar Dugan Confirmed By: MAEGAN RODRIGUEZ MD
--- NOTE | 2024-06-26 02:41 | NURSING ---
pt complained of chest pain ekg done, primary rn aware, notified Dr. Owen, went back in to assess how pt is doing and she is sleeping.
[2024-06-26] MEDS: Piperacil/Tazobactam 3.375 GM in 0.9% Normal Saline (50mL MB+) 50 ML IV ×3 (05:52→21:21)
--- NOTE | 2024-06-26 05:55 | RAD_ITS ---
PROCEDURE: ABDOMEN SINGLE VIEW (PORTABLE) REASON FOR EXAM: Confusion. Sepsis. TECHNIQUE: Single view abdomen. COMPARISON: 06/25/2024. Prior CT abdomen and pelvis dated 06/23/2024 FINDINGS: Minimal airspace disease and small pleural effusion involving the visualized right lower lobe. NG tube is identified, stable in position. Stent graft overlies the right upper quadrant. Evidence of prior cholecystectomy. Contrast and gas distended small bowel loops throughout the visualized abdomen and pelvis, largest gas-filled small bowel loop measures up to 5 cm. Moderate amounts of fecal retention mostly within the right colon. No definite free air. No organomegaly. Osseous structures are intact. Slight dextrocurvature and spondylotic change involving the lumbar spine. Postsurgical changes involving the right hip. RAD/Abdomen Single View (Portable) IMPRESSION: 1. Contrast and gas distended small bowel loops throughout the visualized abdom en and pelvis, largest small bowel loop measures up to 5 cm, slightly progressive in the interval. Correlate for small bowel ob struction. 2. NG tube identified, stable in position. 3. Minimal airspace disease and small pleural effusion involving the visualized right lower lobe. Reading Location: [facility]
[2024-06-26 06:39] LABS: Absolute Lymphocyte Count 0.52 X10^3/uL (0.83-4.51); Basophil# 0.01 X10^3/uL; Basophil% 0.1 % (0-1); Hematocrit 34.8 % (37-47); Hemoglobin 11.3 g/dL (12.0-15.0); Lymphocyte # 0.52 X10^3/ul (0.83-4.51); Lymphocyte % 3.9 % (19-41); Mean Corp Hgb Conc 32.5 g/dL (32-36); Mean Corpuscular Hgb 31.9 pg (27.0-32.0); Mean Corpuscular Volume 98.3 fL (81-99); Mean Platelet Vol. 9.6 fl (6.2-12.0); Monocyte# 0.65 X10^3/uL; Monocyte% 4.9 % (0-10); NRBC Flagged by Analyzer 0 % (0-5); Neutrophil % 90.4 % (47-70); POSITIVE COUNT YES; POSITIVE DIFFERENTIAL YES; Platelet Count 88 K/mm3 (150-450); RBC Distribution Width CV 15.2 % (11.6-14.6); RBC Distribution Width SD 53.8 fl (35.1-43.9); Red Blood Count 3.54 M/mm3 (4.2-5.4); White Blood Count 13.3 K/mm3 (4.4-11.0)
[2024-06-26 07:12] LABS: Differential Indicated SCAN CRITERIA MET
[2024-06-26] MEDS: Ipratropium/Albuterol Sulfate 3 ML AMPUL.NEB INHALATION (07:15)
[2024-06-26] MEDS: 0.45% Normal Saline 1,000 ML 100 ML IV (07:15)
--- NOTE | 2024-06-26 07:29 | PCM.PN.SRG ---
Subjective Subjective Patient is passing a little bit of flatus but no bowel movement she is still having cramping. Objective Data Objective Data Vital Signs: Vital Signs Temp Pulse Resp BP Pulse Ox O2 Del Method O2 Flow Rate 97.6 F L 90 18 147/94 H 95 Nasal Cannula 1 06/26/24 02:07 06/26/24 02:07 06/26/24 02:07 06/26/24 02:07 06/26/24 02:07 06/26/24 02:09 06/26/24 02:09 Oxygen Flow Rate (L/min) 1 Oxygen Delivery Method Nasal Cannula Weight: 145 lb 11.609 oz Body Mass Index (BMI) 22.1 Intake & Output: Intake and Output for Last 24 Hours 06/24/24 06/25/24 06/26/24 23:59 23:59 23:59 Intake Total 4502.5 / 4552.5 2480.00 / 2680.00 1525 / 1525 Output Total 1325 / 1475 1450 / 2100 950 / 950 Balance 3177.5 / 3077.5 1030.00 / 580.00 575 / 575 Lab / Micro Data 06/26/24 05:40 06/25/24 05:15 Labs: Laboratory Results - last 24 hr 06/26/24 00:04: Vancomycin Trough 21.5 H 06/26/24 05:40: WBC 13.3 H, RBC 3.54 L, Hgb 11.3 L, Hct 34.8 L, MCV 98.3, MCH 31.9, MCHC 32.5, RDW Std Deviation 53.8 H, RDW Coeff of Heath 15.2 H, Plt Count 88 L, MPV 9.6, Immature Gran % (Auto) 0.700, Neut % (Auto) 90.4 H, Lymph % (Auto) 3.9 L, [place] % (Auto) 4.9, Eos % (Auto) 0.0, Baso % (Auto) 0.1, Absolute Neuts (auto) 12.0 H, Absolute Lymphs (auto) 0.52 L, Nucleated RBC % 0 Micro: Microbiology 06/23/24 16:50 Urine, Catheterized Urine Culture - Preliminary Culture exhibits no growth. 06/24/24 01:20 Mucosa - Nose Respiratory Panel (PCR) - Final Parainfluenza 3 06/23/24 16:50 Urine, Random Legionella Antigen - Final 06/23/24 16:50 Urine, Random Streptococcus pneumoniae Antigen (M - Final Radiography Diagnostic Testing: Radiology Impression KUB X-Ray 06/25/24 10:55 IMPRESSION: As above. [facility] 06/25/24 13:45 IMPRESSION: 1. Bowel-gas pattern suggests an adynamic slice reflex ileus. 2. Suspicion of pleural fluid and or thickening at the right lung base. 3. COPD. 4. Other nonacute findings detailed above. Reading [facility] 06/25/24 17:00 IMPRESSION: Bowel-gas pattern suggests adynamic/reflex ileus. Reading [facility] X-[facility] 06/26/24 05:55 IMPRESSION: 1. Contrast and gas distended small bowel loops throughout the visualized abdomen and pelvis, largest small bowel loop measures up to 5 cm, slightly progressive in the interval. Correlate for small bowel obstruction. 2. NG tube identified, stable in position. 3. Minimal airspace disease and small pleural effusion involving the visualized right lower lobe. Reading [facility] Physical Exam Const oriented x3 and no apparent distress Resp normal respiratory effort GI soft to palpation Inspection: abdominal distention Palpation: tender Extremity normal to inspection Assessment & Plan Assessment/Plan (1) Small bowel obstruction: PLAN: Patient had a repeat KUB this morning which showed the contrast still in the small bowel and has not progressed to the colon. I recommended exploratory laparoscopy to the patient. Patient is agreeable. I discussed the risks of surgery including but not limited to bleeding, infection, injury to other organs, need for bowel resection or conversion to laparotomy. All patient's questions were answered and the patient agreed to proceed. Shakir Fritz MD Pager: [facility] [address] [place] [address] [address] [place] [address] Office:
[2024-06-26 08:14] LABS: AST(SGOT) 26 U/L (15-37); Alanine Aminotransfer ALT/SGPT 26 U/L (13-56); Albumin, Serum 2.1 g/dL (3.2-5.0); Alkaline Phosphatase 67 U/L (45-117); Anion Gap 8 (5-15); BUN 40 mg/dL (7-18); BUN/Creat Ratio 110.5 RATIO (10-20); Calcium,Total 8.2 mg/dL (8.5-10.1); Chloride 119 mmol/L (98-107); Creatinine, Serum 0.36 mg/dL (0.55-1.02); EST Glomerular Filtration Rate 192 mL/min (>60); Est Glom Filt Rate - Afr Amer 233 mL/min (>60); Estimated Creatinine Clearance 163.45 ml/min; Glucose 102 mg/dL (74-106); Potassium 3.8 mmol/L (3.5-5.1); Protein, Total 4.1 g/dL (6.4-8.2); Sodium Level 145 mmol/L (136-145)
[2024-06-26] MEDS: Pantoprazole Sodium 40 MG in 0.9% Normal Saline (100mL MB+) 100 ML 330 MG IV (10:04)
[2024-06-26 10:49] LABS: Platelet Estimate MOD DEC (ADEQ)
--- NOTE | 2024-06-26 11:51 | NURSING ---
trial of room air, 94-95%. per dr. mj fontana to keep on room air. came down from floor on 2L NC
--- NOTE | 2024-06-26 11:59 | PCM.PRE.AN2 ---
ASA Classification* ASA Classification ASA Classification: 3 Assessment & Plan Anesthesia* Anesthesia Assessment Anesthesia Assessment: Discussed sedation and/or anesthesia options, risks, benefits, and alternatives with patient/parents/legal guardian/POA. Questions invited. The patient/parents/legal guardian/POA seems to understand and agrees to proceed with anesthesia plan. Reviewed the physical assessment, medical history, allergy history and patient home medications list prior to surgery/procedure/anesthetic and documented any changes. Performed airway and anesthesia risk assessments. Anesthesia Type Anesthesia Type: General (possible need for post op ventilation, patient and family aware) Anesthesia Focused Assessment* Temperature: 98.2 F Pulse Rate: 92 Blood Pressure: 151/75 Respiratory Rate: 18 Pulse Ox: 95 Oxygen Flow Rate (L/min): 1 Airway Assessment Mouth opens: >3 cm Mallampati Score: II Focused Labs Anesthesia Preop lab: CBC WBC 13.3 K/mm3 (4.4-11.0) H 06/26/24 05:40 06/26/24 RBC 3.54 M/mm3 (4.2-5.4) L 06/26/24 05:40 06/26/24 Hgb 11.3 g/dL (12.0-15.0) L 06/26/24 05:40 06/26/24 Hct 34.8 % (37-47) L 06/26/24 05:40 06/26/24 Plt Count 88 K/mm3 (150-450) L 06/26/24 05:40 06/26/24 CHEMISTRY Potassium 3.8 mmol/L (3.5-5.1) 06/26/24 05:40 06/26/24 Sodium 145 mmol/L (136-145) 06/26/24 05:40 06/26/24 Magnesium 2.3 mg/dL (1.6-2.6) 06/25/24 05:15 06/25/24 Phosphorus 2.8 mg/dL (2.5-4.9) 06/25/24 05:15 06/25/24 BUN 40 mg/dL (7-18) H 06/26/24 05:40 06/26/24 Creatinine 0.36 mg/dL (0.55-1.02) L 06/26/24 05:40 06/26/24 Glucose 102 mg/dL (74-106) 06/26/24 05:40 06/26/24 POC Glucose 124 mg/dL (74-106) H 06/14/24 11:42 06/14/24 TSH 0.280 uIU/mL (0.358-3.740) L 06/15/24 05:12 06/15/24 COAG PT 18.4 SECONDS (11.7-14.9) H 06/23/24 17:49 06/23/24 Pre-Assessment Diagnosis/Proposed Procedure Planned Operative Procedure(s): exploratory laparoscopy, possible open for bowell obstruction Anesthesia History Anesthesia History - java support engineer: Anesthesia History - java support engineer Hx Hospitalization No 07/24/22 11:23 Any Problems With Anesthesia No 06/26/24 10:52 Cholinesterase deficiency No 06/26/24 10:52 You/Your Family Experience No 06/26/24 10:52 fever (hyperthermia) with Relationship Recent Exposure to Contagious No 06/26/24 10:52 Disease Does patient have nerve No 06/26/24 10:52 stimulator Patient instructed to have No 06/26/24 10:52 device shut off --Does patient have Pacemaker No 06/26/24 10:55 or ICD? When Was Last Pacemaker Check QUESTION #4 FULL TEXT: You/Your Family Experience fever (hyperthermia) with Anesthesia Last Oral Intake Last Oral intake: Last Oral Intake NPO since 00:00 06/26/24 10:55 Meds taken in AM with sips of No 06/26/24 10:55 water? Meds patient instructed to take am of surgery PONV PONV - java support engineer: PONV - java support engineer Female HX of Motion Sickness HX of N/V After Surgery Non-Smoker Duration of Surgery greater than 60 minutes Number of Risk Factors PONV Score Height & Weight Height & Weight: Anesthesia: Height & Weight Height 5 ft 8 in 06/26/24 10:55 Weight: 66.1 kg 06/26/24 10:55 Body Mass Index (BMI) 22.1 06/26/24 10:55 Respiratory Assessment Respiratory Assessment - java support engineer: Respiratory Tract Infection Hx - java support engineer Hx Respiratory Tract Infection No 06/26/24 10:52 STOP Sleep Apnea STOP Sleep Apnea - java support engineer: STOP Sleep Apnea - java support engineer Hx Hypertension No 06/25/24 09:29 Hx Sleep Apnea No 06/23/24 23:37 CPAP BIPAP Do you snore loudly (louder No 06/23/24 23:37 than talking or can be heard Do you often feel tired/ No 06/23/24 23:37 fatigued/ sleepy during daytime? Has anyone observed you stop No 06/23/24 23:37 breathing during sleep? STOP Results Negative 06/23/24 23:37 QUESTION #5 FULL TEXT : Do you snore loudly (louder than talking or can be heard through closed doors)? Tobacco Use History Tobacco Use History - java support engineer: Tobacco Use History - java support engineer Tobacco Use Smoking Status Former smoker 06/24/24 07:38 Hx Tobacco Use Yes 06/23/24 23:37 Years Smoking Packs Smoked per Day Smoking Cessation Date was Yes - quit smoking within 15 06/23/24 23:37 within the last 15 years years Hx Smoking Cessation Date 06/10/24 06/23/24 23:37 Hx Smoking Cessation No 06/23/24 23:37 Counseling Hematologic Medial History Hematologic Hx - java support engineer: Hematologic Medical Hx - insecticide expert Hx of Blood Transfusion No 06/23/24 23:37 Hx of Transfusion in last 3 No 06/23/24 23:37 Months Date of Last Transfusion (if within last 3 months) Ever experience any problems No 06/23/24 23:37 with transfusion(s)? Specify any problems Hx of Preganancy in last 3 No 06/23/24 23:37 Months Nurse Filling Out Transfusion ASTOUDT 06/23/24 23:37 & Questions: Date: 06/23/24 06/23/24 23:37 Time: 23:50 06/23/24 23:37 Patient unable to answer at this time (ie. confused, unrespo /Reproduction History /Reproductive History - java support engineer: /Reproductive Hx- java support engineer Hx Now No 06/26/24 10:52 Gestational Age (in weeks): EDC: Hx Hx Para Hx Section SAB No 06/26/24 10:52 Active Medications Active Medications: Current Medications Generic Name Dose Route Start Last Admin Trade Name Freq PRN Reason Stop Dose Admin Acetaminophen 650 mg 06/23/24 23:36 Acetaminophen 650 Mg Suppository RC Q6H PRN PRN Pain 1-5/10 or Fever Albuterol Sulfate 2.5 mg 06/24/24 06:52 Albuterol 2.5 Mg/3 Ml Vial.Neb. INHALATION Q2H PRN PRN SHORTNESS OF BREATH Albuterol/Ipratropium 3 ml 06/25/24 20:00 06/26/24 07:15 Ipratropium/Albuterol Sulfate 3 Ml Ampul.Neb INHALATION 3 ml Q6HWA.RT JENAE Administration Enoxaparin Sodium 40 mg 06/24/24 18:15 06/26/24 10:03 Enoxaparin 40 Mg/0.4 Ml Syringe SC Not Given DAILY JENAE Gabapentin 600 mg 06/24/24 06:53 Gabapentin 600 Mg Tablet PO QHS PRN nerve pain 1-10 Guaifenesin 1,200 mg 06/24/24 10:00 06/26/24 10:03 Guaifenesin 1,200 Mg Tablet PO Not Given BID JENAE Vancomycin IV-PHARMACY TO DOSE 500 mls @ 250 mls/hr 06/23/24 23:36 1 each/ Sodium Chloride IV PRN PRN Rx to Dose Protocol Piperacillin Sod/Tazobactam 50 mls @ 12.5 mls/hr 06/23/24 23:36 06/26/24 09:59 Sod 3.375 gm/ Sodium Chloride IV Infused Q8 JENAE Infusion Pantoprazole Sodium 40 mg/ 110 mls @ 330 mls/hr 06/24/24 10:00 06/26/24 10:34 Sodium Chloride IV Infused DAILY JENAE Infusion Vancomycin HCl 1,000 mg in 200 mls @ 200 mls/hr 06/25/24 01:00 06/26/24 11:36 Vancomycin IV Infused Q8H JENAE Infusion Sodium Chloride 1,000 mls @ 100 mls/hr 06/25/24 07:55 06/26/24 07:15 IV 06/26/24 13:54 100 mls/hr .Q10H JENAE Administration Protocol Lactulose 10 gm 06/24/24 06:53 Lactulose 20 Gm/30 Ml Udc PO TID PRN PRN constipation Methylprednisolone 40 mg 06/26/24 10:00 06/26/24 10:03 Methylprednisolone 40 Mg/Ml Vial IV 40 mg DAILY JENAE Administration Morphine Sulfate 2 mg 06/23/24 23:36 06/26/24 05:52 Morphine 2 Mg/Ml Syringe IV 2 mg Q4H PRN PRN Administration Pain Score 6-10 Mupirocin 1 applic 06/23/24 23:36 06/24/24 23:41 Mupirocin Ointment 22gm Tube TOPICAL 1 applic TID PRN Administration skin irritation Protocol Nicotine 21 mg 06/24/24 10:00 06/26/24 10:03 Nicotine 21 Mg Patch TD 21 mg DAILY JENAE Administration Ondansetron HCl 4 mg 06/23/24 23:36 06/26/24 05:52 Ondansetron 4 Mg/2 Ml Vial IV 4 mg Q4H PRN PRN Administration NAUSEA/VOMITING Phenol/Menthol 3 spray 06/24/24 23:26 06/25/24 05:00 Phenol/Sodium Phenolate 180ml MUCOUS MEM 3 spray Q2H PRN PRN Administration SORE THROAT Promethazine HCl 12.5 mg 06/23/24 23:36 Promethazine 25 Mg/Ml Syringe IM Q4H PRN PRN BREAKTHROUGH NAUSEA Vancomycin Protocol 1 lab 06/27/24 22:30 Vancomycin Trough/Random Due MC 06/28/24 02:30 DAILY JENAE PFSH Medical History Left rotator cuff tear arthropathy Vision problems Neuropathy Breast lump Left shoulder pain Oral candidiasis History of illicit drug use Pleural effusion on right Heroin addiction History of alcoholism Anxiety and depression History of hepatitis C Tobacco dependence due to cigarettes Vitamin D deficiency Thrombocytopenia Degenerative arthritis Restless legs Injury of head and neck Fall at home Closed subcapital fracture of neck of right femur Cirrhosis of liver Impetigo Cystitis Back pain Hyperlipidemia Seasonal allergies Atopic dermatitis H pylori ulcer COPD (chronic obstructive pulmonary disease) Home Medications ?Medication ?Instructions ?Recorded ?Last Taken ?Type pantoprazole 40 mg tablet,delayed 40 mg PO DAILY 06/30/22 Unknown History release (Protonix) albuterol sulfate 90 mcg/actuation 2 inh inhalation Q6H PRN shortness 07/07/22 06/13/24 Rx breath activated powder inhaler of breath or wheezing #1 ea ondansetron 4 mg disintegrating 4 mg translingual Q8H PRN nausea 08/03/22 Unknown History tablet and vomiting albuterol sulfate 2.5 mg/3 mL 2.5 mg inhalation UD 06/14/24 06/13/24 History (0.083 %) solution for nebulization budesonide-formoterol HFA 160 2 puff inhalation Q12H 06/14/24 06/13/24 History mcg-4.5 mcg/actuation aerosol inhaler (Symbicort) gabapentin 600 mg tablet 600 mg PO QHS PRN pain 06/14/24 06/13/24 History lactulose 10 gram/15 mL oral 10 g PO TID PRN constipation 06/14/24 Unknown History solution (Constulose) mupirocin 2 % topical ointment 1 applic topical TID PRN skin 06/14/24 Unknown History irritation oxycodone-acetaminophen 5 mg-325 1 tab PO BID PRN pain 06/14/24 06/14/24 History mg tablet nicotine 21 mg/24 hr daily 21 mg transdermal DAILY #30 ea 06/21/24 Unknown Rx transdermal patch prednisone 20 mg tablet 40 mg (2 x 20 mg) PO DAILY #10 tabs 06/21/24 Unknown Rx Allergy/AdvReac Type Severity Reaction Status Date / Time trazodone Allergy Mild leg cramps Verified 06/23/24 16:08 naproxen (From Naprosyn) AdvReac Upset Verified 06/23/24 16:08 Stomach tramadol AdvReac Itching Verified 06/23/24 16:08 Family History Mother FH: mental illness HLD (hyperlipidemia) Thyroid disorder Aunt No problems noted. Grandmother Heart disease Myocardial infarction Aunt Diabetes HLD (hyperlipidemia) Hypertension Grandfather COPD (chronic obstructive pulmonary disease) Sister Skin cancer Other Anxiety Arthritis Surgical History S/P TIPS (transjugular intrahepatic portosystemic shunt) History of breast biopsy History of D&C History of open reduction and internal fixation (ORIF) procedure Cervical vertebral fusion History of back surgery S/P shoulder surgery H/O colonoscopy History of esophagogastroduodenoscopy (EGD) H/O: hysterectomy S/P cholecystectomy History of back surgery Status post lumbar surgery Social History adopted: No household members: other details: Her granddaughter lives with her (17 years old). She has custody X 11 year housing: apartment number of children: 3 current occupational status: unemployed Smoking Status: Former smoker Tobacco: How many years used: 32 Electronic Cigarette Use: not used how long ago did patient quit smoking: started smoking at age 28 and smoked 1/2- 1.5 PPD....she is still smoking alcohol intake: former substance use type: former substance user do you feel safe at home: Yes Review of Systems (Anesthesia) ROS Narrative System reviewed and no additional complaints, except as documented.
--- NOTE | 2024-06-26 12:54 | CHAPLAIN ---
Type of Pastoral Visit ___ Initial Visit ___ Follow-up Visit ___ On-call Visit ___ General Patient Visit ___ Spiritual Assessment ___ Family Conference ___ Bereavement ___ Rapid Response ___ Code Blue ___ Other (describe below) Pastoral Care Referral From ___ Patient ___ Family ___ Nurse ___ Physician ___ Lacer And Tier ___ Awning Finisher ___ Other (describe below) Sacrament/Intervention ___ Active listening ___ Anointing ___ Confucianist ___ Bereavement ___ Communion ___ Chen exploration ___ ___ Life review ___ Prayer ___ Reconciliation ___ Sacrament of Sick ___ Supportive presence ___ Wedding ___ Other (describe below) Pastoral Comments patient and bed are out of the room
--- NOTE | 2024-06-26 13:41 | CASEMGMT ---
Discharge Planning A list of?SNF providers including quality and resource use data and consistent with the patient's preferred geographic region, medical needs, and insurance network was created in [facility].? This list was provided to the SW. Latasha Hua Discharge Planning Asst.
--- NOTE | 2024-06-26 13:42 | PCM.OPRPT ---
Operative Report (Standard) Operative Information Date of Procedure: 06/26/24 Pre-Operative Diagnosis: Small bowel obstruction Post-Operative Diagnosis: Small bowel obstruction Surgery/Procedure Performed: Exploratory laparoscopy converted to open with resection of small bowel camp program director: Yes Associate Director Of Biostatistics: Justin Cruz Tasks completed by traffic assistant: Closing and Retracting Type of Anesthesia: Local MAC RN Documented Start/Stop Times: Operation Date: 06/26/24 12:00 Case Time Into Pre-Op 06/26/24 11:03 Out of Pre-Op 06/26/24 12:01 Anesthesia Start 06/26/24 12:03 Into Room 06/26/24 12:03 Procedure Start 06/26/24 12:24 Procedure Start Time: 12:24 Procedure Stop Time: 13:55 Select all DRAINS/GRAFTS/IMPLANTS that apply: None Estimated Blood Loss: 100 Specimen collected: Yes Description of specimen(s) removed: Small bowel segment Description of surgery: Patient is brought back to the operating room and general anesthesia was induced. The abdomen was prepped and draped in usual sterile fashion. Midline incision was made superior to the umbilicus and deepened to the fascia which was elevated and incised. A port was placed into the abdomen and it was insufflated 15 mmHg. Camera was placed into the abdomen. The patient had a lot of distended bowel and it was difficult seeing. I was able to place a 5 mm port in the suprapubic space as well as in the right upper quadrant. I followed the distended bowel down to the pelvis and I was able to locate the terminal ileum which was nondistended. During dissection there was a small tear in the small bowel with leakage of stool. At this point I was unable to free up the distal small bowel and we had some leakage of stool so we decided to convert to open. The 2 midline incisions were connected and electrocautery is used for hemostasis. The patient had very friable tissue that bled easily and it was very thin. I opened the peritoneum and placed a wound protector. The distended bowel was delivered through the incision and the pelvis was inspected. The loop of small bowel with the rent in it was identified and this was closed with interrupted 3-0 silk sutures and then imbricated with additional 3-0 silk sutures. There was no leakage after it was closed. Next the pelvis was inspected once more and it appeared that the small bowel was twisted and obstructed in the right side of the pelvis. I freed this up and then inspected it. There were a lot of interloop adhesions that were taken down with scissors. There was a small area in the mesentery that was bleeding and the bleeding could not be controlled and so it had to be stopped with Enseal. This made a rent in the mesentery and possibly compromise blood supply so I elected to remove that segment of small bowel. This was about 12 to 15 cm proximal to the ileocecal valve. An area of small bowel was selected proximal to this and a small opening was made in the mesentery and the stapler was used to divide the small bowel. Next distal to the rent in the mesentery another opening was made and the stapler was used to divide the terminal ileum. Next the stapler was used to connect the terminal ileum to the distended small bowel. The staple line was inspected and then the enterostomy was closed with a TX 60. The mesentery was closed with a running 3-0 Vicryl suture. Several 3 oh silks were used to contain bleeding. A crotch stitch was placed with 3-0 silk. The abdomen was copiously irrigated and suctioned dry and there appeared to be good hemostasis. All the bowel was returned into the abdomen and the wound protector was removed. Next the fascia was closed with a #1 PDS from the top and bottom meeting in the middle. The subcutaneous tissue was reapproximated using interrupted 3-0 Vicryl sutures. The skin was closed with a interrupted 4-0 Monocryl sutures. Steri-Strips and a bandage was applied. A 4-0 Monocryl was used to close the port site incision. Patient was awoken and taken to PACU. She will be observed in ICU and I will order a hemoglobin this evening. Serrato remained in throughout the case and will remain in after the case Surgical Findings: Small bowel obstruction arising from the right pelvis Complications Complications: Yes Complication Details: Small bowel injury during manipulation of the distended small bowel Admit VTE Documentation VTE Mechan Device Prophylaxis: SCD's
[2024-06-26] MEDS: Bupivacaine Mpf 0.5% 30 ML VIAL (13:48)
[2024-06-26 14:05] LABS: Pathologist Review Reviewed
[2024-06-26 14:08] LABS: Vitamin D 1,25-Dihydroxy 12.6 pg/mL (24.8-81.5)
--- NOTE | 2024-06-26 14:44 | POSTOP.ANE_ITS ---
Anesthesia: Postop Eval I Current Vital Signs Temperature: 97.5 F Pulse Rate: 110 Blood Pressure: 141/70 Respiratory Rate: 14 (ambu bag) Pulse Ox: 97 Oxygen Delivery Method: Non-Rebreather Oxygen Flow Rate (L/min): 15 Assessment Airway patent: Yes Spontaneous unlabored respirations: No Mental status: Asleep nausea: No Vomiting: No Anesthesia Complication: No Fluid Hydration Crystalloid volume administer (ml): 700 Total IV fluid infused: 700 Progress Note Post-operative progress note: failed trial of extubation, reintubated post op after 10 minutes. 7.5 ET. Catrina aware. Daughter Le aware. Suzette SURGICAL SERVICES MANAGER given report to ICU staff upon arrival to ICU. Anesthesia document: Postop Eval 1 completed: Yes
--- NOTE | 2024-06-26 14:48 | POSTOPAN2_ITS ---
Anesthesia Postop Eval I Sum Postop Eval Completion status Anesthesia document: Postop Eval 1 completed: Yes Anesthesia Postop Eval I Summary Anesthesia Postop Eval I Summary: Anesthesia Postop Eval I: Assessment Summary Airway patent Yes 06/26/24 14:48 Spontaneous unlabored No 06/26/24 14:48 respirations Mental status Asleep 06/26/24 14:48 nausea No 06/26/24 14:48 Vomiting No 06/26/24 14:48 Anesthesia Postop Eval I: Fluid Summary Crystalloid volume administer 700 06/26/24 14:48 (ml) Colloids volume administered ( ml) Blood Product volume administered (ml) Total IV fluid infused 700 06/26/24 14:48 Anesthesia Postop Eval I: Summary Notes Anesthesia Complication No 06/26/24 14:48 Anesthesia Complication Comment: Post-operative progress note failed trial of 06/26/24 14:48 extubation, reintubated post op after 10 minutes. 7.5 ET. [place] aware. Daughter Le aware. Suzette ELECTRICAL SYSTEMS DESIGNER given report to ICU staff upon arrival to ICU. Anesthesia: Postop Eval II Evaluation Mental status: Asleep Pain Level: 0 nausea: No Vomiting: No Progress Note Post-operative progress note: Remains intubated with 7.5 ET. on Ventilator. ICU staff aware. orders for sedation per icu protocol . Staff informed DR. Salgado of need for sedation and need for ventilator settings. Complications Anesthesia Complication: No
[2024-06-26] MEDS: Propofol 10MG/Ml 1,000 MG/100 ML Bottle 4 MG CONT INF (15:16)
[2024-06-26] MEDS: fentaNYL drip 100 ML 5 MCG CONT INF (15:16)
[2024-06-26 15:29] LABS: Base Excess -7 mmol/L (-2 to +2); Blood Gas Specimen Type ART; Mode AC; O2 Delivery Device Adult Vent; PEEP 5; PO2 63 mmHG (75-100); RR 14; SITE R Brach; SO2 92 % (95-99); Total Carbon Dioxide 19 mmol/L; pCO2 30.5 mmHg (35-45); pH 7.38 (7.35-7.45)
--- NOTE | 2024-06-26 16:34 | PCM.PROGNOTE ---
Subjective Subjective Patient seen and examined this morning. He still complain of abdominal pain and abdominal distention. She denied any nausea vomiting any fever or chills. Review systems otherwise negative. She was due for an exploratory laparotomy this morning. She said she passed gas x 2 this morning but had still not had a bowel movement. Objective Data Objective Data Vital Signs: Vital Signs Temp Pulse Resp BP Pulse Ox O2 Del Method O2 Flow Rate 97.5 F L 110 H 14 141/70 H 97 Non-Rebreather 15 06/26/24 14:48 06/26/24 14:48 06/26/24 14:48 06/26/24 14:48 06/26/24 14:48 06/26/24 14:48 06/26/24 14:48 FiO2 40 06/26/24 14:45 Oxygen Flow Rate (L/min) 15 Oxygen Delivery Method Non-Rebreather Weight: 145 lb 11.609 oz Body Mass Index (BMI) 22.1 Intake & Output: Intake and Output for Last 24 Hours 06/24/24 06/25/24 06/26/24 23:59 23:59 23:59 Intake Total 4502.5 / 4552.5 2480.00 / 2680.00 1915 / 1915 Output Total 1325 / 1475 1450 / 2100 1400 / 1400 Balance 3177.5 / 3077.5 1030.00 / 580.00 515 / 515 Lab / Micro Data 06/26/24 05:40 06/26/24 05:40 Labs: Laboratory Results - last 24 hr 06/23/24 16:23: Diff Path Review Reviewed 06/24/24 01:48: Vit D 1,25-Dihydroxy 12.6 L 06/26/24 00:04: Vancomycin Trough 21.5 H 06/26/24 05:40: WBC 13.3 H, RBC 3.54 L, Hgb 11.3 L, Hct 34.8 L, MCV 98.3, MCH 31.9, MCHC 32.5, RDW Std Deviation 53.8 H, RDW Coeff of Heath 15.2 H, Plt Count 88 L, MPV 9.6, Immature Gran % (Auto) 0.700, Neut % (Auto) 90.4 H, Lymph % (Auto) 3.9 L, Hunt % (Auto) 4.9, Eos % (Auto) 0.0, Baso % (Auto) 0.1, Absolute Neuts (auto) 12.0 H, Absolute Lymphs (auto) 0.52 L, Nucleated RBC % 0, Differential Comment COMMENT, Platelet Estimate MOD DEC, Sodium 145, Potassium 3.8, Chloride 119 H, Carbon Dioxide 18.0 L, Anion Gap 8, BUN 40 H, Creatinine 0.36 L, Estim Creat Clear Calc 163.45, Est GFR (MDRD) Af Amer 233, Est GFR (MDRD) Non-Af 192, BUN/Creatinine Ratio 110.5 H, Glucose 102, Calcium 8.2 L, Total Bilirubin 1.60 H, AST 26, ALT 26, Alkaline Phosphatase 67, Total Protein 4.1 L, Albumin 2.1 L, Globulin 2.0 L, Albumin/Globulin Ratio 1.0 Micro: Microbiology 06/23/24 16:50 Urine, Catheterized Urine Culture - Final Culture exhibits no growth. 06/23/24 17:49 Blood Culture (Wb) - Arm Left Blood Culture - Preliminary No growth in 48 hours. 06/23/24 17:05 Blood Culture (Wb) - Right Wrist Blood Culture - Preliminary No growth in 48 hours. 06/24/24 01:20 Mucosa - Nose Respiratory Panel (PCR) - Final Parainfluenza 3 06/23/24 16:50 Urine, Random Legionella Antigen - Final 06/23/24 16:50 Urine, Random Streptococcus pneumoniae Antigen (M - Final ABG Data ABG results: ABG 06/26/24 15:25 Specimen Type ART Sample Site R Brach pH 7.38 Bicarbonate Actual 18.0 L Total CO2 19 Base Excess -7 L O2 Saturation 92 L O2 % 40.0 ABG pCO2 30.5 L ABG pO2 63 L Respiration Rate 14 O2 Delivery Device Adult Vent Vent Mode AC Tidal Volume 450.0 POC PEEP 5 Radiography Diagnostic Testing: Radiology Impression [facility] X-Ray 06/25/24 13:45 IMPRESSION: 1. Bowel-gas pattern suggests an adynamic slice reflex ileus. 2. Suspicion of pleural fluid and or thickening at the right lung base. 3. COPD. 4. Other nonacute findings detailed above. Reading Location: [facility] 06/25/24 17:00 IMPRESSION: Bowel-gas pattern suggests adynamic/reflex ileus. Reading Location: [facility] 06/26/24 05:55 IMPRESSION: 1. Contrast and gas distended small bowel loops throughout the visualized abdomen and pelvis, largest small bowel loop measures up to 5 cm, slightly progressive in the interval. Correlate for small bowel obstruction. 2. NG tube identified, stable in position. 3. Minimal airspace disease and small pleural effusion involving the visualized right lower lobe. Reading Location: [facility] Physical Exam Const alert and oriented x3 General Appearance: cooperative HEENT normocephalic, head/scalp atraumatic and moist oral mucous membranes Eyes PERRL and EOMs intact bilaterally Neck no lymphadenopathy, supple and no JVD Lymph Lymphatic: no lymphadenopathy noted and no lymphedema noted Resp Resp Narrative: mildly diminished breath sounds bibasally, no wheezes or crackles. On 1L of oxygen. Cardio regular rate, regular rhythm, S1 normal heart sound, S2 normal heart sound and no murmurs GI GI Narrative: abdomen mildly distended, generalised tenderness, no guarding or rebound tenderness. Extremity normal capillary refill, no clubbing, cyanosis or edema and no calf tenderness General Extremity: no tenderness to palpation of joints or extremities Skin General Skin Exam: no breakdown Neuro CN's II-XII intact bilaterally, no focal motor deficits and no sensory deficits noted Motor Exam: strength 5/5 throughout and general weakness Psych thought process normal and cooperative Appearance: appropriate Assessment & Plan Assessment/Plan (1) Infection due to parainfluenza virus 3: (2) Chronic hypoxic respiratory failure: (3) Intractable nausea and vomiting: (4) Small bowel obstruction: PLAN: Plan #Small bowel obstruction Patient has a history of a partial hysterectomy. Still has abdominal distention. She did have small bowel follow-through which still showed no contrast in the colon today showed dilated loops of bowel. General surgery for exploratory laparotomy today. On IV Zosyn. She did have exploratory laparotomy today which was converted to open with resection of the small bowel count of distal small bowel obstruction Patient transferred to the ICU afterwards as she could not be extubated successfully. General Surgery on board. Management as per general surgery. #Acute on chronic hypoxic respiratory failure Was on 2 L of oxygen on account of parainfluenza infection. She went down for surgery thank you and was subsequently extubated but had to be reintubated again due to worsening respiratory status. Currently intubated. Critical care consulted. Vent management as per critical care. Titrate oxygen to maintain saturation above 90% Currently on IV vancomycin and Zosyn as well Of note usually wears 2 L of oxygen at home due to COPD #Parainfluenza infection: Was on 1 L of oxygen this morning but now intubated on account of respiratory failure after surgery. Management as above. #Hypernatremia: resolved. Na is 145. #Lactic acidosis: resolved #GERD: on PPI #Chronic thrombocytopenia: Likely due to cirrhosis and splenomegaly. Will monitor closely. Platelets are 88 today. Was 105 yesterday. If continues to drop will consider stopping lovenox #History of cirrhosis in the setting of hepatitis C due to IV drug use On lactulose #Nicotine dependence: Counseled to quit. Nicotine patch as needed DVT prophylaxis:lovenox Disposition: Patient transferred to ICU on account of acute on chronic respiratory failure after surgery. Charges/Coding Visit Charges Inpatient E&M: 11027 [facility] H[facility] L3
[2024-06-26 17:23] LABS: CPK Total, Creatine Kinase 71 U/L (26-192); Triglycerides 67 mg/dL
[2024-06-26] MEDS: 0.9% Normal Saline (500mL Bag) 500 ML 999 ML IV (20:39)
[2024-06-27] VITALS (45 sets, daily range): BP systolic 47–136; BP diastolic 36–80; PULSE 51–131; RESP 14–88; TEMP 36.4–37.3; O2SAT 91–100; BMI 23.9
[2024-06-27] MEDS: fentaNYL drip 100 ML 12.5 MCG CONT INF ×2 (01:00→07:27)
[2024-06-27] MEDS: Propofol 10MG/Ml 1,000 MG/100 ML Bottle 7.9 MG CONT INF (01:00)
[2024-06-27] MEDS: Vancomycin IV 1,000 MG/200 ML BAG 200 MG IV ×3 (02:04→18:07)
[2024-06-27 05:34] LABS: Absolute Lymphocyte Count 0.62 X10^3/uL (0.83-4.51); Absolute Neutrophil Count 22.3 X10^3/uL (2.0-7.7); Basophil# 0.18 X10^3/uL; Basophil% 0.7 % (0-1); Eosinophil# 0.19 X10^3/uL; Eosinophils% 0.8 % (0-5); Hemoglobin 11.2 g/dL (12.0-15.0); Lymphocyte # 0.62 X10^3/ul (0.83-4.51); Lymphocyte % 2.6 % (19-41); Mean Corp Hgb Conc 33.9 g/dL (32-36); Mean Corpuscular Hgb 32.9 pg (27.0-32.0); Mean Corpuscular Volume 97.1 fL (81-99); Mean Platelet Vol. 10.1 fl (6.2-12.0); Monocyte% 3.3 % (0-10); NRBC Flagged by Analyzer 0 % (0-5); Neutrophil # 22.27 X10^3/uL (2.7-7.7); Neutrophil % 91.9 % (47-70); POSITIVE DIFFERENTIAL YES; Platelet Count 100 K/mm3 (150-450); RBC Distribution Width SD 56.6 fl (35.1-43.9); White Blood Count 24.2 K/mm3 (4.4-11.0)
[2024-06-27 05:57] LABS: Anion Gap 6 (5-15); BUN 48 mg/dL (7-18); BUN/Creat Ratio 63.2 RATIO (10-20); Calcium,Total 7.8 mg/dL (8.5-10.1); Chloride 117 mmol/L (98-107); Creatinine, Serum 0.76 mg/dL (0.55-1.02); EST Glomerular Filtration Rate 82 mL/min (>60); Est Glom Filt Rate - Afr Amer 99 mL/min (>60); Estimated Creatinine Clearance 77.42 ml/min; Glucose 140 mg/dL (74-106); Potassium 4.4 mmol/L (3.5-5.1); Sodium Level 143 mmol/L (136-145)
[2024-06-27] MEDS: Piperacil/Tazobactam 3.375 GM in 0.9% Normal Saline (50mL MB+) 50 ML IV ×3 (06:07→23:17)
[2024-06-27 06:13] LABS: Differential Indicated SCAN CRITERIA MET
[2024-06-27] MEDS: Ipratropium/Albuterol Sulfate 3 ML AMPUL.NEB INHALATION ×3 (07:18→20:05)
[2024-06-27 07:34] LABS: Differential Comment SCANNED; Platelet Estimate SLT DEC (ADEQ)
[2024-06-27 07:36] LABS: Acanthocytes RARE; Anisocytosis 1+; Ovalocyte 1+; Polychromasia 1+; Tear Drop Cell RARE
--- NOTE | 2024-06-27 07:42 | EX.PCM.CONCC ---
Assessment & Plan Assessment/Plan (1) Chronic hypoxic respiratory failure: (2) Small bowel obstruction: PLAN: Plan RECOMMENDATIONS: 1. Continue assist-control mode mechanical ventilation. Wean FiO2 to maintain saturations at or above 90%. 2. Check procalcitonin and obtain follow-up ABG. 3. Continue empiric antimicrobials. 4. Start Levophed to maintain a mean arterial pressure at or above 65 mmHg. 5. Continue appropriate DVT and GI prophylaxis. 6. Continue scheduled bronchodilators and steroids. 7. Utilize Precedex, if sedation is required. IMPRESSIONS: 1. Acute on chronic hypoxemic respiratory failure The patient underwent surgical intervention for her small bowel obstruction on June 26. Postprocedure, she was initially extubated, but apparently did not do well and was reintubated by anesthesia providers. She was recently hospitalized with a COPD exacerbation related to community-acquired pneumonia and parainfluenza infection. She has a known history of chronic hypoxemic respiratory failure with baseline oxygen requirement of 2 L/min. Plan at this time to continue empiric antibiotics while awaiting repeat culture data. In the interim, continue to wean FiO2 to maintain saturations at or above 90%. The patient will be transition from propofol to Precedex to help facilitate weaning from invasive mechanical ventilatory support. 2. Undifferentiated shock Unclear etiology for shock. While sepsis is certainly a possibility, no discernible source has yet to be identified. The patient was just hospitalized with community-acquired pneumonia and treated with Levaquin, which is appropriate. On prior chest imaging in May, the patient was noted to have a right lower lobe infiltrate. Therefore, the findings noted on her repeat chest imaging during this admission is likely the sequelae of her prior hospitalization/infection. The patient is going to be aggressively volume resuscitated at this time. Given the undifferentiated nature of her hypotension, will obtain echocardiogram and CTA chest to rule out PE. Lastly, a nonhemorrhagic etiology in the setting of cirrhosis and third spacing is yet another possibility. The goal at this time will be to continue Levophed to maintain a mean arterial pressure at or above 65 mmHg. 3. Small bowel obstruction status post surgical resection Continue routine postoperative care per general surgery recommendations. Plan to obtain repeat CT abdomen/pelvis given clinical instability. 4. 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 Continue supportive measures as noted above. TIME: 40 minutes of critical care time, independent of procedures, was spent addressing the patient's acute on chronic hypoxemic respiratory failure, undifferentiated shock, small bowel obstruction, review of all data and collaboration with the care team. HPI Consult Data Date of Consult: 06/27/24 HPI Narrative Reason for Consultation: Respiratory failure HPI Narrative: The patient is a 63-year-old female, with a history as outlined below, who presented to the emergency department with shortness of breath. The patient had just been admitted to the hospital June 14 through with a COPD exacerbation presumed secondary to community-acquired pneumonia. In addition, the patient was positive for parainfluenza on June 14. The patient has an apparent history of COPD along with chronic hypoxemic respiratory failure. In addition, she has a known history of hepatitis C related cirrhosis and is status post TIPS procedure in 2020. As part of her preliminary workup in the emergency department, a CT abdomen/pelvis was obtained which demonstrated numerous dilated loops of small bowel with findings concerning for small bowel obstruction along with a right lower lobe pneumonia. The patient was subsequently admitted to the hospital and was seen in consultation by general surgery. Gastric tube was placed for decompression purposes. In addition, the patient was continued on antimicrobials. Ultimately, the patient required surgical intervention and was taken to the OR on June 26 where she underwent an exploratory laparoscopy which was converted to open with resection of small bowel. According to anesthesia documentation, the patient failed a trial of extubation after approximately 10 minutes and required reintubation. Following this, the patient was transferred to the medical intensive care unit for further management. This morning, upon my initial evaluation, the patient was noted to be normotensive. According to nursing staff, the patient became agitated with weaning of sedation. Therefore, the patient was transition from propofol to Precedex in hopes that this would help facilitate weaning from invasive mechanical ventilatory support. However, over the course of the morning, the patient became progressively hypotensive. Stat H&H revealed a mild decrease in her hemoglobin to 9.5 g/dL. The patient was ordered to receive supplemental IV fluid hydration. Ultimately, a triple-lumen catheter was placed by general surgery. Arterial line was placed. The patient was initiated on vasopressor support to maintain hemodynamic stability. Repeat cultures were ordered. It does not appear that the patient is on chronic corticosteroids, but was rather prescribed a prednisone burst of 40 mg daily x 5 days, at the time of her discharge from the hospital. [facility] Medical History Left rotator cuff tear arthropathy Vision problems Neuropathy Breast lump Left shoulder pain Oral candidiasis History of illicit drug use Pleural effusion on right Heroin addiction History of alcoholism Anxiety and depression History of hepatitis C Tobacco dependence due to cigarettes Vitamin D deficiency Thrombocytopenia Degenerative arthritis Restless legs Injury of head and neck Fall at home Closed subcapital fracture of neck of right femur Cirrhosis of liver Impetigo Cystitis Back pain Hyperlipidemia Seasonal allergies Atopic dermatitis H pylori ulcer COPD (chronic obstructive pulmonary disease) Home Medications ?Medication ?Instructions ?Recorded ?Last Taken ?Type pantoprazole 40 mg tablet,delayed 40 mg PO DAILY 06/30/22 Unknown History release (Protonix) albuterol sulfate 90 mcg/actuation 2 inh inhalation Q6H PRN shortness 07/07/22 06/13/24 Rx breath activated powder inhaler of breath or wheezing #1 ea ondansetron 4 mg disintegrating 4 mg translingual Q8H PRN nausea 08/03/22 Unknown History tablet and vomiting albuterol sulfate 2.5 mg/3 mL 2.5 mg inhalation UD 06/14/24 06/13/24 History (0.083 %) solution for nebulization budesonide-formoterol HFA 160 2 puff inhalation Q12H 06/14/24 06/13/24 History mcg-4.5 mcg/actuation aerosol inhaler (Symbicort) gabapentin 600 mg tablet 600 mg PO QHS PRN pain 06/14/24 06/13/24 History lactulose 10 gram/15 mL oral 10 g PO TID PRN constipation 06/14/24 Unknown History solution (Constulose) mupirocin 2 % topical ointment 1 applic topical TID PRN skin 06/14/24 Unknown History irritation oxycodone-acetaminophen 5 mg-325 1 tab PO BID PRN pain 06/14/24 06/14/24 History mg tablet nicotine 21 mg/24 hr daily 21 mg transdermal DAILY #30 ea 06/21/24 Unknown Rx transdermal patch prednisone 20 mg tablet 40 mg (2 x 20 mg) PO DAILY #10 tabs 06/21/24 Unknown Rx Allergy/AdvReac Type Severity Reaction Status Date / Time trazodone Allergy Mild leg cramps Verified 06/23/24 16:08 naproxen (From Naprosyn) AdvReac Upset Verified 06/23/24 16:08 Stomach tramadol AdvReac Itching Verified 06/23/24 16:08 Family History Mother FH: mental illness HLD (hyperlipidemia) Thyroid disorder Aunt No problems noted. Grandmother Heart disease Myocardial infarction Aunt Diabetes HLD (hyperlipidemia) Hypertension Grandfather COPD (chronic obstructive pulmonary disease) Sister Skin cancer Other Anxiety Arthritis Surgical History S/P TIPS (transjugular intrahepatic portosystemic shunt) History of breast biopsy History of D&C History of open reduction and internal fixation (ORIF) procedure Cervical vertebral fusion History of back surgery S/P shoulder surgery H/O colonoscopy History of esophagogastroduodenoscopy (EGD) H/O: hysterectomy S/P cholecystectomy History of back surgery Status post lumbar surgery Social History adopted: No household members: other details: Her granddaughter lives with her (17 years old). She has custody X 11 year housing: apartment number of children: 3 current occupational status: unemployed Smoking Status: Former smoker Tobacco: How many years used: 32 Electronic Cigarette Use: not used how long ago did patient quit smoking: started smoking at age 28 and smoked 1/2- 1.5 PPD....she is still smoking alcohol intake: former substance use type: former substance user do you feel safe at home: Yes ROS Review of Systems ROS Unobtainable: due to endotracheal tube Physical Exam Const Constitutional Narrative: Intubated, sedated and mechanically ventilated. General Appearance: ill appearing HEENT normocephalic and head/scalp atraumatic Mouth: endotracheal tube in place and OG tube in place Eyes PERRL, EOMs intact bilaterally and conjunctivae normal Neck supple General: trachea midline and CVC in place Chest inspection of chest normal Resp normal respiratory effort Resp Narrative: Coarse mechanical breath sounds bilaterally. Cardio regular rate and regular rhythm GI soft to palpation GI Narrative: Midline surgical dressing in place. Nondistended. Extremity General Extremity: edema; Negative for clubbing Skin no rashes or lesions noted Neuro Sensorium / Orientation: sedated on vent Lab / Micro Data 06/27/24 10:50 06/27/24 05:22 Labs: Laboratory Results - last 24 hr 06/23/24 16:23: Diff Path Review Reviewed 06/24/24 01:48: Vit D 1,25-Dihydroxy 12.6 L 06/26/24 05:40: Differential Comment COMMENT, Platelet Estimate MOD DEC, Sodium 145, Potassium 3.8, Chloride 119 H, Carbon Dioxide 18.0 L, Anion Gap 8, BUN 40 H, Creatinine 0.36 L, Estim Creat Clear Calc 163.45, Est GFR (MDRD) Af Amer 233, Est GFR (MDRD) Non-Af 192, BUN/Creatinine Ratio 110.5 H, Glucose 102, Calcium 8.2 L, Total Bilirubin 1.60 H, AST 26, ALT 26, Alkaline Phosphatase 67, Total Creatine Kinase 71, Total Protein 4.1 L, Albumin 2.1 L, Globulin 2.0 L, Albumin/Globulin Ratio 1.0, Triglycerides 67 06/27/24 05:22: WBC 24.2 H, RBC 3.40 L, Hgb 11.2 L, Hct 33.0 L, MCV 97.1, MCH 32.9 H, MCHC 33.9, RDW Std Deviation 56.6 H, RDW Coeff of Heath 16.0 H, Plt Count 100 L, MPV 10.1, Immature Gran % (Auto) 0.700, Neut % (Auto) 91.9 H, Lymph % (Auto) 2.6 L, Travis % (Auto) 3.3, Eos % (Auto) 0.8, Baso % (Auto) 0.7, Absolute Neuts (auto) 22.3 H, Absolute Lymphs (auto) 0.62 L, Nucleated RBC % 0, Differential Comment SCANNED, Platelet Estimate SLT DEC, Polychromasia 1+, Anisocytosis 1+, Tear Drop Cells RARE, Ovalocytes 1+, Acanthocytes (Spur) RARE, Sodium 143, Potassium 4.4, Chloride 117 H, Carbon Dioxide 20.0 L, Anion Gap 6, BUN 48 H, Creatinine 0.76, Estim Creat Clear Calc 77.42, Est GFR (MDRD) Af Amer 99, Est GFR (MDRD) Non-Af 82, BUN/Creatinine Ratio 63.2 H, Glucose 140 H, Calcium 7.8 L Micro: Microbiology 06/23/24 16:50 Urine, Catheterized Urine Culture - Final Culture exhibits no growth. 06/23/24 17:49 Blood Culture (Wb) - Arm Left Blood Culture - Preliminary No growth in 48 hours. 06/23/24 17:05 Blood Culture (Wb) - Right Wrist Blood Culture - Preliminary No growth in 48 hours. ABG Data ABG results: ABG 06/26/24 15:25 Specimen Type ART Sample Site R Brach pH 7.38 Bicarbonate Actual 18.0 L Total CO2 19 Base Excess -7 L O2 Saturation 92 L O2 % 40.0 ABG pCO2 30.5 L ABG pO2 63 L Respiration Rate 14 O2 Delivery Device Adult Vent Vent Mode AC Tidal Volume 450.0 POC PEEP 5 Charges/Coding Procedures Hospitalists Procedures: 75255 Critical Care 1st Hr
--- NOTE | 2024-06-27 07:50 | PCM.PN.SRG ---
Subjective Subjective Patient is a little hypotensive this morning. This may be due to the propofol. Patient still remains intubated Objective Data Objective Data Vital Signs: Vital Signs Temp Pulse Resp BP Pulse Ox O2 Del Method O2 Flow Rate 98.9 F 106 H 15 110/61 93 Mechanical Ventilator 15 06/27/24 02:00 06/27/24 07:18 06/27/24 07:18 06/27/24 07:00 06/27/24 07:18 06/27/24 07:00 06/26/24 14:48 FiO2 06/27/24 07:18 Oxygen Flow Rate (L/min) 15 Oxygen Delivery Method Mechanical Ventilator Weight: 157 lb 10.088 oz Body Mass Index (BMI) 23.9 Intake & Output: Intake and Output for Last 24 Hours 06/25/24 06/26/24 06/27/24 23:59 23:59 23:59 Intake Total 2480.00 / 2680.00 3850.89 / 3865.04 442.58 / 442.58 Output Total 1450 / 2100 1400 / 1400 200 / 200 Balance 1030.00 / 580.00 2450.89 / 2465.04 242.58 / 242.58 Lab / Micro Data 06/27/24 05:22 06/27/24 05:22 Labs: Laboratory Results - last 24 hr 06/23/24 16:23: Diff Path Review Reviewed 06/24/24 01:48: Vit D 1,25-Dihydroxy 12.6 L 06/26/24 05:40: Differential Comment COMMENT, Platelet Estimate MOD DEC, Sodium 145, Potassium 3.8, Chloride 119 H, Carbon Dioxide 18.0 L, Anion Gap 8, BUN 40 H, Creatinine 0.36 L, Estim Creat Clear Calc 163.45, Est GFR (MDRD) Af Amer 233, Est GFR (MDRD) Non-Af 192, BUN/Creatinine Ratio 110.5 H, Glucose 102, Calcium 8.2 L, Total Bilirubin 1.60 H, AST 26, ALT 26, Alkaline Phosphatase 67, Total Creatine Kinase 71, Total Protein 4.1 L, Albumin 2.1 L, Globulin 2.0 L, Albumin/Globulin Ratio 1.0, Triglycerides 67 06/27/24 05:22: WBC 24.2 H, RBC 3.40 L, Hgb 11.2 L, Hct 33.0 L, MCV 97.1, MCH 32.9 H, MCHC 33.9, RDW Std Deviation 56.6 H, RDW Coeff of Heath 16.0 H, Plt Count 100 L, MPV 10.1, Immature Gran % (Auto) 0.700, Neut % (Auto) 91.9 H, Lymph % (Auto) 2.6 L, [place] % (Auto) 3.3, Eos % (Auto) 0.8, Baso % (Auto) 0.7, Absolute Neuts (auto) 22.3 H, Absolute Lymphs (auto) 0.62 L, Nucleated RBC % 0, Differential Comment SCANNED, Platelet Estimate SLT DEC, Polychromasia 1+, Anisocytosis 1+, Tear Drop Cells RARE, Ovalocytes 1+, Acanthocytes (Spur) RARE, Sodium 143, Potassium 4.4, Chloride 117 H, Carbon Dioxide 20.0 L, Anion Gap 6, BUN 48 H, Creatinine 0.76, Estim Creat Clear Calc 77.42, Est GFR (MDRD) Af Amer 99, Est GFR (MDRD) Non-Af 82, BUN/Creatinine Ratio 63.2 H, Glucose 140 H, Calcium 7.8 L Micro: Microbiology 06/23/24 16:50 Urine, Catheterized Urine Culture - Final Culture exhibits no growth. 06/23/24 17:49 Blood Culture (Wb) - Arm Left Blood Culture - Preliminary No growth in 48 hours. 06/23/24 17:05 Blood Culture (Wb) - Right Wrist Blood Culture - Preliminary No growth in 48 hours. 06/24/24 01:20 Mucosa - Nose Respiratory Panel (PCR) - Final Parainfluenza 3 06/23/24 16:50 Urine, Random Legionella Antigen - Final 06/23/24 16:50 Urine, Random Streptococcus pneumoniae Antigen (M - Final ABG Data ABG results: ABG 06/26/24 15:25 Specimen Type ART Sample Site R Brach pH 7.38 Bicarbonate Actual 18.0 L Total CO2 19 Base Excess -7 L O2 Saturation 92 L O2 % 40.0 ABG pCO2 30.5 L ABG pO2 63 L Respiration Rate 14 O2 Delivery Device Adult Vent Vent Mode AC Tidal Volume 450.0 POC PEEP 5 Physical Exam Const no apparent distress Resp Resp Narrative: Patient intubated Cardio Rate: tachycardic GI soft to palpation Inspection: Negative for abdominal distention Assessment & Plan Assessment/Plan (1) Small bowel obstruction: PLAN: Patient's hemoglobin is stable. Patient remains intubated. If the patient becomes extubated today she can remove her NG tube. Hold off on diet until she has bowel function. Shakir Fritz MD Pager: [facility] [address] [place] [address] [address] [place] [address] Office:
--- NOTE | 2024-06-27 08:00 | RAD_ITS ---
EXAM: XR Chest, 1 View CLINICAL INDICATION: TECHNIQUE: Frontal view of the chest. COMPARISON: No relevant prior studies available. FINDINGS: LUNGS AND PLEURAL SPACES: Bibasilar atelectasis or pneumonia. Right pleural effusion. No pneumothorax. HEART: Unremarkable. No cardiomegaly. MEDIASTINUM: Unremarkable. Normal mediastinal contour. BONES/JOINTS: Unremarkable. No acute fracture. TUBES, LINES AND DEVICES: The endotracheal tube (ETT) is in satisfactory position. Enteric tube tip in the stomach. RAD/Chest 1 View (Portable) IMPRESSION: 1. Bibasilar atelectasis or pneumonia. 2. Right pleural effusion. Reading Location: [facility]
[2024-06-27] MEDS: dexMEDEtomidine 400 MCG in 0.9% Normal Saline (100mL Bag) 96 ML 8.9 MCG CONT INF ×2 (09:15→17:59)
[2024-06-27] MEDS: Enoxaparin 40 MG/0.4 ML Syringe SC (09:30)
[2024-06-27] MEDS: Pantoprazole Sodium 40 MG in 0.9% Normal Saline (100mL MB+) 100 ML 330 MG IV (09:30)
--- NOTE | 2024-06-27 11:00 | CASEMGMT ---
Social Work SW participated in ICU rounds, pt is intubated at this time. SW will continue to follow, it is anticipated pt may need SNF placement upon discharge. DELFINO Huang
[2024-06-27 11:09] LABS: Hematocrit 28.5 % (37-47); Hemoglobin 9.5 g/dL (12.0-15.0)
--- NOTE | 2024-06-27 11:24 | CT_ITS ---
PROCEDURE: ABDOMEN/PELVIS WITH CONTRAST REASON FOR EXAM: Cirrhosis. Hepatitis-C. Small-bowel obstruction. TECHNIQUE: Abdomen and pelvis CT with intravenous contrast. No oral contrast. IV CONTRAST: 100 cc of Isovue-300 was injected intravenously. COMPARISON: Comparison is made with prior study dated June 23, 2024. FINDINGS: Nasogastric tube is seen with the tip in the distal stomach. Lung bases: Bilateral pleural effusions right greater than left with bibasilar atelectasis and infiltrate worse on the right side. Liver: Stent grafting in the liver is seen in keeping with prior TIPS procedure. Nodular contour of the liver in keeping with history of cirrhosis. Gallbladder: Surgically absent. Spleen: Unremarkable. Pancreas: Diffuse fatty atrophy. Adrenals: Unremarkable. Kidneys: Unremarkable. Bladder: Unremarkable. Reproductive Organs: Unremarkable. Bowel: At this time, there is less small-bowel distention as compared to prior study. This is slightly worse in the distal portion of the small bowel loops. Contrast and fecal material seen throughout the colon. Appendix: Normal. Lymph nodes: No suspicious lymph node enlargement. Vasculature: Mild diffuse atherosclerotic calcifications are noted. Peritoneum / Retroperitoneum: Small amount of ascites. A Serrato catheter seen within a decompressed urinary bladder. Status post hysterectomy. Bones: Degenerative changes of the spine. Prior right hip replacement. CT/Abdomen/Pelvis WITH Contrast IMPRESSION: Bilateral pleural effusions with bibasilar atelectasis and/or infiltrate more p rominent at the right lung base. Persistent mild dilatation of the distal small bowel although this has improved as compared to prior study. Findings suggestive of cirrhosis of the liver. Status post cholecystectomy and hysterectomy. Status post TIPS procedure. One or more dose reduction techniques were used (e.g., Automated exposure contr ol, adjustment of the mA and/or kV according to patient size, use of iterative reconstruction technique). Reading Location: [place] [id number]
--- NOTE | 2024-06-27 11:35 | PN_ITS ---
Subjective Subjective Patient seen and examined. SHe was transferred to the ICU after she had the exploratory laparotomy yesterday as she could not be extubated successfully. She remains intubated. Per her nurse, she was agitated this morning, bucking the ventilator, so she was switched from propofol to precedex. Objective Data Objective Data Vital Signs: Vital Signs Temp Pulse Resp BP Pulse Ox O2 Del Method O2 Flow Rate 98.9 F 70 14 110/61 92 Mechanical Ventilator 15 06/27/24 02:00 06/27/24 10:59 06/27/24 10:59 06/27/24 07:00 06/27/24 10:59 06/27/24 07:00 06/26/24 14:48 FiO2 06/27/24 10:59 Oxygen Flow Rate (L/min) 15 Oxygen Delivery Method Mechanical Ventilator Weight: 157 lb 10.088 oz Body Mass Index (BMI) 23.9 Intake & Output: Intake and Output for Last 24 Hours 06/25/24 06/26/24 06/27/24 23:59 23:59 23:59 Intake Total 2480.00 / 2680.00 3850.89 / 3865.04 442.58 / 442.58 Output Total 1450 / 2100 1400 / 1400 200 / 200 Balance 1030.00 / 580.00 2450.89 / 2465.04 242.58 / 242.58 Lab / Micro Data 06/27/24 10:50 06/27/24 05:22 Labs: Laboratory Results - last 24 hr 06/23/24 16:23: Diff Path Review Reviewed 06/24/24 01:48: Vit D 1,25-Dihydroxy 12.6 L 06/26/24 05:40: Total Creatine Kinase 71, Triglycerides 67 06/27/24 05:22: WBC 24.2 H, RBC 3.40 L, Hgb 11.2 L, Hct 33.0 L, MCV 97.1, MCH 32.9 H, MCHC 33.9, RDW Std Deviation 56.6 H, RDW Coeff of Heath 16.0 H, Plt Count 100 L, MPV 10.1, Immature Gran % (Auto) 0.700, Neut % (Auto) 91.9 H, Lymph % (Auto) 2.6 L, [place] % (Auto) 3.3, Eos % (Auto) 0.8, Baso % (Auto) 0.7, Absolute Neuts (auto) 22.3 H, Absolute Lymphs (auto) 0.62 L, Nucleated RBC % 0, Differential Comment SCANNED, Platelet Estimate SLT DEC, Polychromasia 1+, Anisocytosis 1+, Tear Drop Cells RARE, Ovalocytes 1+, Acanthocytes (Spur) RARE, Sodium 143, Potassium 4.4, Chloride 117 H, Carbon Dioxide 20.0 L, Anion Gap 6, B UN 48 H, Creatinine 0.76, Estim Creat Clear Calc 77.42, Est GFR (MDRD) Af Amer 99, Est GFR (MDRD) Non-Af 82, BUN/Creatinine Ratio 63.2 H, Glucose 140 H, C alcium 7.8 L 06/27/24 10:50: Hgb 9.5 L, Hct 28.5 L Micro: Microbiology 06/23/24 16:50 Urine, Catheterized Urine Culture - Final Culture exhibits no growth. 06/23/24 17:49 Blood Culture (Wb) - Arm Left Blood Culture - Preliminary No growth in 48 hours. 06/23/24 17:05 Blood Culture (Wb) - Right Wrist Blood Culture - Preliminary No growth in 48 hours. 06/24/24 01:20 Mucosa - Nose Respiratory Panel (PCR) - Final Parainfluenza 3 06/23/24 16:50 Urine, Random Legionella Antigen - Final 06/23/24 16:50 Urine, Random Streptococcus pneumoniae Antigen (M - Final ABG Data ABG results: ABG 06/26/24 15:25 Specimen Type ART Sample Site R Brach pH 7.38 Bicarbonate Actual 18.0 L Total CO2 19 Base Excess -7 L O2 Saturation 92 L O2 % 40.0 ABG pCO2 30.5 L ABG pO2 63 L Respiration Rate 14 O2 Delivery Device Adult Vent Vent Mode AC Tidal Volume 450.0 POC PEEP 5 Radiography Diagnostic Testing: Radiology Impression Chest X-Ray 06/27/24 08:00 IMPRESSION: 1. Bibasilar atelectasis or pneumonia. 2. Right pleural effusion. Reading Location: [facility] Physical Exam Const Constitutional Narrative: intubated, sedated, RASS score is -4. HEENT normocephalic, head/scalp atraumatic and oropharynx normal Eyes PERRL and EOMs intact bilaterally Neck no lymphadenopathy Lymph Lymphatic: no lymphadenopathy noted and no lymphedema noted Resp Resp Narrative: intubated, sedated, diminished breath sounds bibasally, no wheezes or crackles. Cardio regular rate, regular rhythm, S1 normal heart sound, S2 normal heart sound and no murmurs GI GI Narrative: abdomen minimally distended, intact dressing over laparotomy site, no tenderness, guarding or rebound tenderness. Extremity normal capillary refill and no clubbing, cyanosis or edema General Extremity: no tenderness to palpation of joints or extremities Skin General Skin Exam: no breakdown Neuro Neuro Narrative: sedated, RASS score is -4 Assessment & Plan Assessment/Plan (1) Infection due to parainfluenza virus 3: (2) Chronic hypoxic respiratory failure: (3) Intractable nausea and vomiting: (4) Small bowel obstruction: PLAN: Plan #Small bowel obstruction * Patient has a history of a partial hysterectomy. She did have small bowel follow-through which still showed no contrast in the colon today showed dilated loops of bowel. * She did have exploratory laparotomy on 06/26/2024 which was converted to open with resection of the small bowel count of distal small bowel obstruction * Patient transferred to the ICU afterwards as she could not be extubated successfully. Remains intubated and sedated * General Surgery on board. Management as per general surgery. * critical care also on board due to her being intubated. * wbc today is up to 24, from 13.3 yesterday. * #Acute on chronic hypoxic respiratory failure * could not be extubated successfully yesterday after exploratory laparotomy. * was transferred to the ICU. * remains intubated and sedated. * critical care on board. * remains on IV zosyn. * vent management as per critical care. * * #Parainfluenza infection: * Was on 1 L of oxygen this morning but now intubated on account of respiratory failure after surgery. * Management as above. #Hypernatremia: resolved. #Lactic acidosis: resolved #GERD: on PPI #Chronic thrombocytopenia: * Likely due to cirrhosis and splenomegaly. Will monitor closely. * platelets are 100 today, up from ~ 80 yesterday. * If continues to drop will consider stopping lovenox #History of cirrhosis in the setting of hepatitis C due to IV drug use * On lactulose #Nicotine dependence: Counseled to quit. Nicotine patch as needed DVT prophylaxis:lovenox Charges/Coding Visit Charges Inpatient E&M: 20589 Subs Hosp L3
--- NOTE | 2024-06-27 11:38 | PN_ITS ---
Progress Note I was called to the bedside for hypotension. The patient was mildly hypotensive this morning on rounds but became profoundly hypotensive this morning. The patient was placed in Trendelenburg position and her pressure was in the 50s to 60s. Dr. Salgado placed a left wrist arterial line and this confirmed the blood pressures. I then placed a left IJ central line. The patient's pressures did respond to fluids and CT scan will be obtained. She had a repeat hemoglobin of 9.5 from 11.5 this morning. It is likely that this morning is 11.5 was he moconcentrated as there was blood loss during surgery. Ordering a CT scan of the abdomen and pelvis to evaluate. Discussed with patient's daughter.
--- NOTE | 2024-06-27 11:39 | PCM.OPRPT ---
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 Type of Anesthesia: Local RN Documented Start/Stop Times: Operation Date: 06/26/24 12:00 Case Time Into Pre-Op 06/26/24 11:03 Out of Pre-Op 06/26/24 12:01 Anesthesia Start 06/26/24 12:03 Into Room 06/26/24 12:03 Procedure Start 06/26/24 12:24 Procedure End 06/26/24 13:50 Anesthesia End 06/26/24 14:31 Out of Room 06/26/24 14:31 Procedure Start Time: 11:20 Procedure Stop Time: 11:30 Select all DRAINS/GRAFTS/IMPLANTS that apply: Prosthetic device Prosthetic device details: Triple-lumen catheter Estimated Blood Loss: 2 Specimen collected: No Description of surgery: The left neck was prepped and draped in usual sterile fashion. Ultrasound was used to localize left IJ. An area overlying this was injected with local anesthetic and a small incision was made. Needle was placed under ultrasound guidance into the left IJ and blood was aspirated. The syringe was removed from the needle and a guidewire was placed down the IJ with no resistance. The needle was removed off of the dilator. The serial dilator was placed over the guidewire and it was dilated the dilator was removed and then the catheter was placed over the wire and into position. The wire was removed. Each port was aspirated and flushed and they all aspirated and flushed easily with slow non pulsatile dark red blood. The catheter was sutured into position using 3-0 silk suture. Dressing was applied as well as Biopatch. Surgical Findings: Hypotension Complications Complications: No
[2024-06-27 11:47] LABS: Base Excess -4 mmol/L (-2 to +2); Bicarbonate 20.5 mmol/L (22-26); Blood Gas Specimen Type ART; Mode AC; O2 Delivery Device Adult Vent; PEEP 5; PO2 52 mmHG (75-100); RR 14; SITE Art Line; SO2 89 % (95-99); Total Carbon Dioxide 21 mmol/L; pCO2 29.6 mmHg (35-45); pH 7.45 (7.35-7.45)
--- NOTE | 2024-06-27 11:50 | RAD_ITS ---
EXAM: XR Chest, 1 View CLINICAL INDICATION: TECHNIQUE: Frontal view of the chest. COMPARISON: No relevant prior studies available. FINDINGS: LUNGS AND PLEURAL SPACES: Bibasilar atelectasis or pneumonia. Right pleural effusion. No pneumothorax. HEART: Unremarkable. No cardiomegaly. MEDIASTINUM: Unremarkable. Normal mediastinal contour. BONES/JOINTS: Unremarkable. No acute fracture. TUBES, LINES AND DEVICES: The endotracheal tube (ETT) is in satisfactory position. Left internal jugular central venous catheter tip in the superior vena cava. Enteric tube tip cannot be seen but is below the diaphragm. RAD/CXR for Line Placement IMPRESSION: 1. Bibasilar atelectasis or pneumonia. 2. Right pleural effusion. Reading Location: [facility]
[2024-06-27] MEDS: Norepinephrine 8 MG in 0.9% Normal Saline (250mL Bag) 242 ML 9.4 MG CONT INF (12:00)
--- NOTE | 2024-06-27 12:51 | CHAPLAIN ---
Type of Pastoral Visit _x__ Initial Visit ___ Follow-up Visit ___ On-call Visit ___ General Patient Visit ___ Spiritual Assessment ___ Family Conference ___ Bereavement ___ Rapid Response ___ Code Blue ___ Other (describe below) Pastoral Care Referral From ___ Patient _x__ Family ___ Nurse ___ Physician ___ Deportation Officer ___ Recording Clerk ___ Other (describe below) Sacrament/Intervention ___ Active listening ___ Anointing ___ Pentecostal ___ Bereavement ___ Communion ___ Chen exploration ___ ___ Life review _x__ Prayer ___ Reconciliation ___ Sacrament of Sick _x__ Supportive presence ___ Wedding ___ Other (describe below) Pastoral Comments patient is now vented and is not doing well; no family is at the hospital at present; offered prayer for patient and left a calling card; will keep close to the unit today to see how support may be needed
--- NOTE | 2024-06-27 12:55 | ECHOL_ITS ---
Reason For Study: Dyspnea/SOB, assess for PE Procedure This was a limited 2D transthoracic echocardiogram. Patient scanned supine and on vent. Exam performed portable in ICU/CCU. Left Ventricle Normal LV size. The left ventricular ejection fraction is 40 %. There is mild to moderate global hypokinesis of the left ventricle. Right Ventricle Normal RV size. Normal systolic function. Atria Normal left atrium. Normal right atrium. Mitral Valve Normal mitral valve. Tricuspid Valve Normal tricuspid valve. Aortic Valve Trisinus/trileaflet aortic valve. Great Vessels Normal aortic root. The pulmonary artery is normal size. The inferior vena cava is dilated. Pericardium/Pleural No pericardial effusion. MMode/2D Measurements & Calculations LVIDd: 4.3 cm IVSd: 0.68 cm TAPSE: 1.4 cm LVIDs: 3.1 cm LVPWd: 0.71 cm RVDd: 3.7 cm FS: 29.3 % Doppler Measurements & Calculations PA V2 max: 51.0 cm/sec TR max nando: 220.1 cm/sec TR max P.4 mmHg ECHO/Echo, Limited Study Interpretation Summary The left ventricular ejection fraction is 40 %. Normal LV size. There is mild to moderate global hypokinesis of the left ventricle. Ordering Physician: Cipriano Salgado Referring Physician: Edgar Dugan Performed By: César Saleh RCS
--- NOTE | 2024-06-27 12:59 | PCM.OP.PRO2 ---
Procedures Hospitalists Procedures: 47919 Insertion Catheter Artery Non-invasive Procedural Procedure Information Description of procedure: Arterial Line Indication: Hypotension Consent was obtained from: Done emergently A time-out was completed verifying correct patient, procedure, site, positioning, and special equipment if applicable. The patient's left wrist was prepped and draped in the sterile fashion. An 18-gauge arrow arterial line was introduced into the left radial artery. The catheter was threaded over the guidewire and the needle was removed with the appropriate pulsatile blood return. The catheter was then sutured in place to the skin and a sterile dressing applied. Perfusion to the extremity distal to the point of catheter insertion was checked and found to be adequate. ULTRASOUND GUIDANCE STATEMENT (Vascular Access): I perform ultrasound image acquisition and interpretation for needle placement during this procedure. The vessel was identified and found to be free of thrombosis by compression technique. A safe point of entry was marked at the skin and then angle for access was determined. The needle was guided by obtaining free-flowing fluid and by real-time visualization.
--- NOTE | 2024-06-27 13:22 | CT_ITS ---
PROCEDURE: CTA CHEST W/WO CONTRAST REASON FOR EXAM: Shortness of breath; substance abuse; hepatitis-C; cirrhosis. TECHNIQUE: CTA imaging of the chest with intravenous contrast. 3D reconstructions. COMPARISON: 06/27/2024 CT abdomen and pelvis. FINDINGS: Hardware: Orogastric tube terminates below the volume of these images. Endotracheal tube terminates above the lucien (satisfactory position). Lymph nodes: No mediastinal hilar or axillary lymphadenopathy. Heart: Normal heart size. No pericardial effusion. RV/LV Diameter Ratio: N/A Thoracic Aorta: No thoracic aortic aneurysm or dissection. Pulmonary Vessels: No evidence of acute pulmonary emboli through the major subsegmental branches. Most Proximal Level of Embolus (if embolus present): N/A Lungs and Airways: Moderate right pleural effusion with sharp angle suggestive of loculation. Right lower lobe density with attenuation greater than paraspinal musculature favoring atelectasis. Small to moderate left pleural effusion. Mild left lower lobe atelectasis. Moderate centrilobular emphysema. Upper Abdomen: Tips stent within the abdomen. Mildly nodular hepatic surface contour suggestive of cirrhosis. Small volume ascites within the upper abdomen. Status post cholecystectomy. Bones: Degenerative changes of the spine. CT/CTA Chest W/WO Contrast IMPRESSION: No pulmonary embolism. Loculated right and simple left pleural effusions. Bilateral associated atelec tasis. Moderate centrilobular emphysema. Cirrhosis with a tips stent in place. Small volume upper abdominal ascites. One or more dose reduction techniques were used (e.g., Automated exposure contr ol, adjustment of the mA and/or kV according to patient size, use of iterative reconstruction technique). Reading Location: [id number]
[2024-06-27 15:02] LABS: International Normalized Ratio 2.4; Prothrombin Time (Protime)PT. 26.9 SECONDS (11.7-14.9)
[2024-06-27 15:03] LABS: Partial Thromboplast Time 41.4 Seconds (24.1-36.2)
[2024-06-27 15:06] LABS: Procalcitonin 5.29 ng/mL (0.00-0.09)
[2024-06-27 15:34] LABS: Bedside Glucose 134 mg/dL (74-106)
[2024-06-27 17:28] LABS: Anion Gap 6 (5-15); BUN 49 mg/dL (7-18); BUN/Creat Ratio 77.4 RATIO (10-20); Calcium,Total 7.9 mg/dL (8.5-10.1); Chloride 116 mmol/L (98-107); Creatinine, Serum 0.63 mg/dL (0.55-1.02); EST Glomerular Filtration Rate 101 mL/min (>60); Est Glom Filt Rate - Afr Amer 122 mL/min (>60); Glucose 136 mg/dL (74-106); Magnesium 2.1 mg/dL (1.6-2.6); Phosphorus 3.9 mg/dL (2.5-4.9); Potassium 4.1 mmol/L (3.5-5.1); Sodium Level 143 mmol/L (136-145)
[2024-06-27] MEDS: Chlorhexidine 15 ML PO (23:18)
[2024-06-27 23:56] LABS: Vancomycin, Trough Level 35.6 ug/mL (5.0-15.0)
[2024-06-28] VITALS (36 sets, daily range): BP systolic 86–127; BP diastolic 52–82; PULSE 64–145; RESP 14–38; TEMP 35.9–37.6; O2SAT 92–100; BMI 24.4
--- NOTE | 2024-06-28 00:11 | PCM.RX.CS ---
Consult Antibiotic Management Pharmacy has been consulted to manage selected antibiotic: Vancomycin Type of Intervention Type of Consult: Follow-up Suspected Infection Suspected Infection: Sepsis and Pneumonia Labs Labs: Sodium 143 mmol/L (136-145) 06/27/24 17:00 Potassium 4.1 mmol/L (3.5-5.1) 06/27/24 17:00 Chloride 116 mmol/L (98-107) H 06/27/24 17:00 Carbon Dioxide 21.0 mmol/L (21.0-32.0) 06/27/24 17:00 Anion Gap 6 (5-15) 06/27/24 17:00 BUN 49 mg/dL (7-18) H 06/27/24 17:00 Creatinine 0.63 mg/dL (0.55-1.02) 06/27/24 17:00 Est GFR (MDRD) Af Amer 122 mL/min (>60) 06/27/24 17:00 Est GFR (MDRD) Non-Af 101 mL/min (>60) 06/27/24 17:00 BUN/Creatinine Ratio 77.4 RATIO (10-20) H 06/27/24 17:00 Glucose 136 mg/dL (74-106) H 06/27/24 17:00 Vancomycin Trough 35.6 ug/mL (5.0-15.0) H 06/27/24 23:30 Microbiology Microbiology: Microbiology 06/27/24 17:15 Nasal Secretion MRSA (PCR) - Final 06/26/24 14:55 Sputum, Induced/Lukens Gram Stain - Final 06/23/24 16:50 Urine, Catheterized Urine Culture - Final Culture exhibits no growth. 06/23/24 17:49 Blood Culture (Wb) - Arm Left Blood Culture - Preliminary No growth in 48 hours. 06/23/24 17:05 Blood Culture (Wb) - Right Wrist Blood Culture - Preliminary No growth in 48 hours. 06/24/24 01:20 Mucosa - Nose Respiratory Panel (PCR) - Final Parainfluenza 3 06/23/24 16:50 Urine, Random Legionella Antigen - Final 06/23/24 16:50 Urine, Random Streptococcus pneumoniae Antigen (M - Final Dosing Weight Weight used for dosin.5 kg Estimated Creatinine Clearance Estimated Creatinine Clearance: 93 Goal Trough Goal Trough: 15-20 mcg/mL Pharmacy Plan for Drug Dosing Pharmacy Plan for Drug Dosing: Vancomycin trough level was high at 35.6. However, the previous dose had been hung one hour late and the blood draw was one hour earlier than scheduled. So this was a 5&1/2 hour level. Using the dosing calculator a new dose of 1000mg q12h should give a new estimated trough of 19.3. This will be started at 0200. Another trough will be drawn prior to fourth dose of the new regimen. Pharmacy Service will continue to monitor and adjust dosing as required. Follow-Up Labs Follow-Up Labs: Trough: Vancomycin Date/Time Labs Ordered Labs to be done on [date and time ordered]: 06/29/24 @1182
[2024-06-28] MEDS: Vancomycin IV 1,000 MG/200 ML BAG 200 MG IV ×2 (01:40→13:10)
[2024-06-28 03:41] LABS: Absolute Lymphocyte Count 1.27 X10^3/uL (0.83-4.51); Absolute Neutrophil Count 23.4 X10^3/uL (2.0-7.7); Basophil# 0.11 X10^3/uL; Basophil% 0.4 % (0-1); Eosinophil# 0.01 X10^3/uL; Hematocrit 30.3 % (37-47); Hemoglobin 10.3 g/dL (12.0-15.0); Lymphocyte # 1.27 X10^3/ul (0.83-4.51); Lymphocyte % 4.8 % (19-41); Mean Corpuscular Volume 97.1 fL (81-99); Mean Platelet Vol. 10.4 fl (6.2-12.0); Monocyte# 1.17 X10^3/uL; Monocyte% 4.5 % (0-10); NRBC Flagged by Analyzer 0 % (0-5); Neutrophil # 23.37 X10^3/uL (2.7-7.7); Neutrophil % 89.2 % (47-70); POSITIVE DIFFERENTIAL YES; Platelet Count 112 K/mm3 (150-450); RBC Distribution Width CV 15.7 % (11.6-14.6); RBC Distribution Width SD 54.5 fl (35.1-43.9); Red Blood Count 3.12 M/mm3 (4.2-5.4); White Blood Count 26.2 K/mm3 (4.4-11.0)
[2024-06-28 03:55] LABS: Anion Gap 6 (5-15); BUN 48 mg/dL (7-18); BUN/Creat Ratio 76.4 RATIO (10-20); Chloride 115 mmol/L (98-107); Creatinine, Serum 0.63 mg/dL (0.55-1.02); EST Glomerular Filtration Rate 102 mL/min (>60); Est Glom Filt Rate - Afr Amer 123 mL/min (>60); Glucose 128 mg/dL (74-106); Potassium 4.2 mmol/L (3.5-5.1); Sodium Level 143 mmol/L (136-145)
[2024-06-28 03:57] LABS: Differential Indicated SCAN CRITERIA MET
[2024-06-28 05:12] LABS: Differential Comment SCANNED
[2024-06-28] MEDS: Piperacil/Tazobactam 3.375 GM in 0.9% Normal Saline (50mL MB+) 50 ML IV ×3 (05:25→21:23)
[2024-06-28] MEDS: fentaNYL drip 100 ML 5 MCG CONT INF (05:26)
[2024-06-28] MEDS: Ipratropium/Albuterol Sulfate 3 ML AMPUL.NEB INHALATION (07:28)
--- NOTE | 2024-06-28 07:31 | PCM.PN.SRG ---
Subjective Subjective Patient still on low-dose Levophed. Objective Data Objective Data Vital Signs: Vital Signs Temp Pulse Resp BP Pulse Ox O2 Del Method O2 Flow Rate 98.6 F 88 14 114/74 100 Mechanical Ventilator 35 06/28/24 07:00 06/28/24 07:00 06/28/24 07:00 06/28/24 07:00 06/28/24 07:00 06/28/24 07:00 06/28/24 05:00 FiO2 35 06/28/24 07:00 Oxygen Flow Rate (L/min) 35 Oxygen Delivery Method Mechanical Ventilator Weight: 160 lb 7.944 oz Body Mass Index (BMI) 24.4 Intake & Output: Intake and Output for Last 24 Hours 06/26/24 06/27/24 06/28/24 23:59 23:59 23:59 Intake Total 3850.89 / 3865.04 1269.29 / 1274.89 358.86 / 358.86 Output Total 1400 / 1400 650 / 850 375 / 375 Balance 2450.89 / 2465.04 619.29 / 424.89 -16.14 / -16.14 Lab / Micro Data 06/28/24 03:27 06/28/24 03:27 Labs: Laboratory Results - last 24 hr 06/27/24 05:22: Differential Comment SCANNED, Platelet Estimate SLT DEC, Polychromasia 1+, Anisocytosis 1+, Tear Drop Cells RARE, Ovalocytes 1+, Acanthocytes (Spur) RARE 06/27/24 10:50: Hgb 9.5 L, Hct 28.5 L 06/27/24 14:00: PT 26.9 H, INR 2.4, APTT 41.4 H, Procalcitonin 5.29 H 06/27/24 15:13: POC Glucose 134 H 06/27/24 17:00: Sodium 143, Potassium 4.1, Chloride 116 H, Carbon Dioxide 21.0, Anion Gap 6, BUN 49 H, Creatinine 0.63, Estim Creat Clear Calc 93.40, Est GFR (MDRD) Af Amer 122, Est GFR (MDRD) Non-Af 101, BUN/Creatinine Ratio 77.4 H, Glucose 136 H, Calcium 7.9 L, Phosphorus 3.9, Magnesium 2.1 06/27/24 23:30: Vancomycin Trough 35.6 H 06/28/24 03:27: WBC 26.2 H, RBC 3.12 L, Hgb 10.3 L, Hct 30.3 L, MCV 97.1, MCH 33.0 H, MCHC 34.0, RDW Std Deviation 54.5 H, RDW Coeff of Heath 15.7 H, Plt Count 112 L, MPV 10.4, Immature Gran % (Auto) 1.100 H, Neut % (Auto) 89.2 H, Lymph % (Auto) 4.8 L, [place] % (Auto) 4.5, Eos % (Auto) 0.0, Baso % (Auto) 0.4, Absolute Neuts (auto) 23.4 H, Absolute Lymphs (auto) 1.27, Nucleated RBC % 0, Differential Comment SCANNED, Sodium 143, Potassium 4.2, Chloride 115 H, Carbon Dioxide 22.0, Anion Gap 6, BUN 48 H, Creatinine 0.63, Estim Creat Clear Calc 93.40, Est GFR (MDRD) Af Amer 123, Est GFR (MDRD) Non-Af 102, BUN/Creatinine Ratio 76.4 H, Glucose 128 H, Calcium 8.0 L Micro: Microbiology 06/27/24 17:15 Nasal Secretion MRSA (PCR) - Final 06/26/24 14:55 Sputum, Induced/Lukens Gram Stain - Final 06/23/24 16:50 Urine, Catheterized Urine Culture - Final Culture exhibits no growth. 06/23/24 17:49 Blood Culture (Wb) - Arm Left Blood Culture - Preliminary No growth in 48 hours. 06/23/24 17:05 Blood Culture (Wb) - Right Wrist Blood Culture - Preliminary No growth in 48 hours. 06/24/24 01:20 Mucosa - Nose Respiratory Panel (PCR) - Final Parainfluenza 3 06/23/24 16:50 Urine, Random Legionella Antigen - Final 06/23/24 16:50 Urine, Random Streptococcus pneumoniae Antigen (M - Final ABG Data ABG results: ABG 06/27/24 11:43 Specimen Type ART Sample Site Art Line pH 7.45 Bicarbonate Actual 20.5 L Total CO2 21 Base Excess -4 L O2 Saturation 89 L O2 % 25.0 ABG pCO2 29.6 L ABG pO2 52 L Respiration Rate 14 O2 Delivery Device Adult Vent Vent Mode AC Tidal Volume 450.0 POC PEEP 5 Radiography Diagnostic Testing: Radiology Impression Chest X-Ray 06/27/24 08:00 IMPRESSION: 1. Bibasilar atelectasis or pneumonia. 2. Right pleural effusion. Reading Location: [facility] Abdomen/Pelvis CT 06/27/24 11:24 IMPRESSION: Bilateral pleural effusions with bibasilar atelectasis and/or infiltrate more prominent at the right lung base. Persistent mild dilatation of the distal small bowel although this has improved as compared to prior study. Findings suggestive of cirrhosis of the liver. Status post cholecystectomy and hysterectomy. Status post TIPS procedure. One or more dose reduction techniques were used (e.g., Automated exposure control, adjustment of the mA and/or kV according to patient size, use of iterative reconstruction technique). Reading Location: [facility]-1 Chest X-Ray 06/27/24 11:50 IMPRESSION: 1. Bibasilar atelectasis or pneumonia. 2. Right pleural effusion. Reading Location: [facility] Echocardiogram 06/27/24 12:55 Interpretation Summary The left ventricular ejection fraction is 40 %. Normal LV size. There is mild to moderate global hypokinesis of the left ventricle. Ordering Physician: Cipriano Salgado Referring Physician: Edgar Dugan Performed By: César Saleh RCS Chest CTA 06/27/24 13:22 IMPRESSION: No pulmonary embolism. Loculated right and simple left pleural effusions. Bilateral associated atelectasis. Moderate centrilobular emphysema. Cirrhosis with a tips stent in place. Small volume upper abdominal ascites. One or more dose reduction techniques were used (e.g., Automated exposure control, adjustment of the mA and/or kV according to patient size, use of iterative reconstruction technique). Reading Location: [facility] Physical Exam Const no apparent distress Resp normal respiratory effort GI soft to palpation Palpation: tender Assessment & Plan Assessment/Plan (1) Small bowel obstruction: PLAN: Patient had an episode of profound hypotension yesterday requiring pressors and a central line and art line to be inserted. The patient was off pressors for a short time yesterday afternoon and overnight she went back on low-dose pressors. Her blood pressures in the low 100s. She is responding and reports that she is not having any abdominal pain. Hopeful for extubation today. Continue to wean the Levophed. Okay to start Lovenox from my standpoint. Await diet until she has bowel function Shakir Fritz MD Pager: [facility] [address] [place] [address], [address] [place] [phone] Office:
--- NOTE | 2024-06-28 07:44 | PN.CC_ITS ---
Assessment & Plan Assessment/Plan (1) Chronic hypoxic respiratory failure: (2) Small bowel obstruction: PLAN: Plan RECOMMENDATIONS: 1. Proceed with a trial of extubation this morning. 2. Once extubated, wean supplemental oxygen to maintain saturations at or above 90%. 3. Continue empiric antibiotics. 4. Continue to wean Levophed as tolerated. 5. Continue appropriate DVT prophylaxis. 6. Continue scheduled bronchodilators and steroids. 7. Encourage incentive spirometer use and mobilize patient as tolerated. IMPRESSIONS: 1. Acute on chronic hypoxemic respiratory failure The patient underwent surgical intervention for her small bowel obstruction on June 26. Postprocedure, she was initially extubated, but apparently did not do well and was reintubated by anesthesia providers. She was recently hospitalized with a COPD exacerbation related to community-acquired pneumonia and parainfluenza infection. She has a known history of chronic hypoxemic respiratory failure with baseline oxygen requirement of 2 L/min. Plan at this time to continue empiric antibiotics, getting gram-negative organisms isolated on sputum culture. The patient was able to complete a spontaneous breathing trial this morning. She is alert and able to follow simple commands. Therefore, we will plan to proceed with a trial of extubation. Once extubated, wean supplemental oxygen to maintain saturations at or above 90%. Continue scheduled bronchodilators and steroids. 2. Septic shock Currently, the patient is demonstrating growth of gram-negative organism on sputum culture. CTA chest was completed which ruled out pulmonary embolism. Echocardiogram revealed an ejection fraction of approximately 40%. Will need to be cautious of third spacing in a patient with underlying cirrhosis. Therefore, we will plan to continue antibiotics and vasopressor support to maintain hemodynamic stability. 3. Small bowel obstruction status post surgical resection Continue routine postoperative care per general surgery recommendations. 4. 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 Continue supportive measures as noted above. TIME: 34 minutes of critical care time, independent of procedures, was spent addressing the patient's acute on chronic hypoxemic respiratory failure, septic shock, small bowel obstruction, review of all data and collaboration with the care team. Subjective Subjective The patient was seen and examined at the bedside this morning. Events from the last 24 hours have been reviewed. The patient did well this morning on her spontaneous breathing trial. She was alert and able to follow simple commands appropriately. Therefore, the decision was made to proceed with a trial of extubation. The patient remains on empiric broad-spectrum antimicrobials, along with low-dose Levophed to maintain hemodynamic stability. White blood cell count remains elevated at 26,000. Hemoglobin is stable at 10.3 g/dL. Platelet count is low at 112,000. Chemistry profile was unremarkable. Objective Data Objective Data The patient's most recent lab work, culture data and imaging studies have all been personally reviewed. Sputum culture is currently demonstrating growth of a gram-negative emery, lactose candle cutter. Surface echocardiogram was notable for moderate global hypokinesis of the LV with an ejection fraction of 40%. Vital Signs: Vital Signs Temp Pulse Resp BP Pulse Ox O2 Del Method O2 Flow Rate 98.6 F 88 14 114/74 100 Mechanical Ventilator 35 06/28/24 07:00 06/28/24 07:00 06/28/24 07:00 06/28/24 07:00 06/28/24 07:00 06/28/24 07:00 06/28/24 05:00 FiO2 35 06/28/24 07:00 Oxygen Flow Rate (L/min) 35 Oxygen Delivery Method Mechanical Ventilator Weight: 160 lb 7.944 oz Body Mass Index (BMI) 24.4 Intake & Output: Intake and Output for Last 24 Hours 06/26/24 06/27/24 06/28/24 23:59 23:59 23:59 Intake Total 3850.89 / 3865.04 1269.29 / 1274.89 358.86 / 358.86 Output Total 1400 / 1400 650 / 850 375 / 375 Balance 2450.89 / 2465.04 619.29 / 424.89 -16.14 / -16.14 Lab / Micro Data Attestation: I reviewed the patient's lab results. 06/28/24 03:27 06/28/24 03:27 Labs: Laboratory Results - last 24 hr 06/27/24 10:50: Hgb 9.5 L, Hct 28.5 L 06/27/24 14:00: PT 26.9 H, INR 2.4, APTT 41.4 H, Procalcitonin 5.29 H 06/27/24 15:13: POC Glucose 134 H 06/27/24 17:00: Sodium 143, Potassium 4.1, Chloride 116 H, Carbon Dioxide 21.0, Anion Gap 6, BUN 49 H, Creatinine 0.63, Estim Creat Clear Calc 93.40, Est GFR (MDRD) Af Amer 122, Est GFR (MDRD) Non-Af 101, BUN/Creatinine Ratio 77.4 H, G lucose 136 H, Calcium 7.9 L, Phosphorus 3.9, Magnesium 2.1 06/27/24 23:30: Vancomycin Trough 35.6 H 06/28/24 03:27: WBC 26.2 H, RBC 3.12 L, Hgb 10.3 L, Hct 30.3 L, MCV 97.1, MCH 33.0 H, MCHC 34.0, RDW Std Deviation 54.5 H, RDW Coeff of Heath 15.7 H, Plt Count 112 L, MPV 10.4, Immature Gran % (Auto) 1.100 H, Neut % (Auto) 89.2 H, Lymph % (Auto) 4.8 L, [place] % (Auto) 4.5, Eos % (Auto) 0.0, Baso % (Auto) 0.4, Absolute Neuts (auto) 23.4 H, Absolute Lymphs (auto) 1.27, Nucleated RBC % 0, Differential Comment SCANNED, Sodium 143, Potassium 4.2, Chloride 115 H, Carbon Dioxide 22.0, Anion Gap 6, BUN 48 H, Creatinine 0.63, Estim Creat Clear Calc 93.40, Est GFR (MDRD) Af Amer 123, Est GFR (MDRD) Non-Af 102, BUN/Creatinine Ratio 76.4 H, Glucose 128 H, Calcium 8.0 L Micro: Microbiology 06/27/24 17:15 Nasal Secretion MRSA (PCR) - Final 06/26/24 14:55 Sputum, Induced/Lukens Gram Stain - Final 06/23/24 16:50 Urine, Catheterized Urine Culture - Final Culture exhibits no growth. 06/23/24 17:49 Blood Culture (Wb) - Arm Left Blood Culture - Preliminary No growth in 48 hours. 06/23/24 17:05 Blood Culture (Wb) - Right Wrist Blood Culture - Preliminary No growth in 48 hours. 06/24/24 01:20 Mucosa - Nose Respiratory Panel (PCR) - Final Parainfluenza 3 06/23/24 16:50 Urine, Random Legionella Antigen - Final 06/23/24 16:50 Urine, Random Streptococcus pneumoniae Antigen (M - Final ABG Data ABG results: ABG 06/27/24 11:43 Specimen Type ART Sample Site Art Line pH 7.45 Bicarbonate Actual 20.5 L Total CO2 21 Base Excess -4 L O2 Saturation 89 L O2 % 25.0 ABG pCO2 29.6 L ABG pO2 52 L Respiration Rate 14 O2 Delivery Device Adult Vent Vent Mode AC Tidal Volume 450.0 POC PEEP 5 Radiography Diagnostic Testing: Radiology Impression Chest X-Ray 06/27/24 08:00 IMPRESSION: 1. Bibasilar atelectasis or pneumonia. 2. Right pleural effusion. Reading Location: [facility] Abdomen/Pelvis CT 06/27/24 11:24 IMPRESSION: Bilateral pleural effusions with bibasilar atelectasis and/or infiltrate more prominent at the right lung base. Persistent mild dilatation of the distal small bowel although this has improved as compared to prior study. Findings suggestive of cirrhosis of the liver. Status post cholecystectomy and hysterectomy. Status post TIPS procedure. One or more dose reduction techniques were used (e.g., Automated exposure control, adjustment of the mA and/or kV according to patient size, use of iterative reconstruction technique). Reading Location: [facility] Chest X-Ray 06/27/24 11:50 IMPRESSION: 1. Bibasilar atelectasis or pneumonia. 2. Right pleural effusion. Reading Location: [facility] Echocardiogram 06/27/24 12:55 Interpretation Summary The left ventricular ejection fraction is 40 %. Normal LV size. There is mild to moderate global hypokinesis of the left ventricle. Ordering Physician: Cipriano Salgado Referring Physician: Edgar Dugan Performed By: Brodwolf, César, RCS Chest CTA 06/27/24 13:22 IMPRESSION: No pulmonary embolism. Loculated right and simple left pleural effusions. Bilateral associated atelectasis. Moderate centrilobular emphysema. Cirrhosis with a tips stent in place. Small volume upper abdominal ascites. One or more dose reduction techniques were used (e.g., Automated exposure control, adjustment of the mA and/or kV according to patient size, use of iterative reconstruction technique). Reading Location: [facility] Physical Exam Const no apparent distress Constitutional Narrative: Remains intubated and mechanically ventilated. Currently tolerating spontaneous mode of mechanical ventilation. HEENT normocephalic and head/scalp atraumatic Mouth: endotracheal tube in place and OG tube in place Eyes PERRL, EOMs intact bilaterally and conjunctivae normal Neck supple General: trachea midline and CVC in place Chest inspection of chest normal Resp normal respiratory effort Resp Narrative: Coarse mechanical breath sounds bilaterally. Cardio regular rate and regular rhythm GI soft to palpation GI Narrative: Midline surgical dressing in place. Nondistended. Extremity General Extremity: edema; Negative for clubbing Skin no rashes or lesions noted Neuro Neuro Narrative: Alert able to follow simple commands. Psych Activity / Motor Behavior: restless Mood & Affect: anxious Charges/Coding Procedures Hospitalists Procedures: 08105 Critical Care 1st Hr
[2024-06-28] MEDS: Metoprolol Tartrate 5 MG/5 ML Vial IV (10:12)
[2024-06-28] MEDS: CHLORHEXIDINE GLUC 2% CLOTH 1 EACH TOWELETTE TOPICAL (10:18)
[2024-06-28] MEDS: Pantoprazole Sodium 40 MG in 0.9% Normal Saline (100mL MB+) 100 ML 330 MG IV (10:24)
[2024-06-28] MEDS: Enoxaparin 40 MG/0.4 ML Syringe SC (10:26)
[2024-06-28] MEDS: Ipratropium 0.5 MG/2.5 ML SOLUTION INHALATION ×2 (13:31→19:15)
--- NOTE | 2024-06-28 15:39 | CASEMGMT ---
Per ICU staff, pt was extubated today and therapy is to be held today. [facility] CM and SW to follow.
--- NOTE | 2024-06-28 16:18 | PN_ITS ---
Subjective Subjective Patient seen and examined. She was extubated this morning. She was lethargic but able to answer questions. She had no active complaints. Unable to do comprehensive review of systems due to lethargy. Blood pressure running low in the 90s systolic. Objective Data Objective Data Vital Signs: Vital Signs Temp Pulse Resp BP Pulse Ox O2 Del Method O2 Flow Rate 99.7 F H 99 17 94/60 93 Room Air 35 06/28/24 16:13 06/28/24 16:13 06/28/24 16:13 06/28/24 16:13 06/28/24 16:13 06/28/24 16:13 06/28/24 05:00 FiO2 35 06/28/24 07:28 Oxygen Flow Rate (L/min) 35 Oxygen Delivery Method Room Air Weight: 160 lb 7.944 oz Body Mass Index (BMI) 24.4 Intake & Output: Intake and Output for Last 24 Hours 06/26/24 06/27/24 06/28/24 23:59 23:59 23:59 Intake Total 3850.89 / 3865.04 1269.29 / 1274.89 759.62 / 759.62 Output Total 1400 / 1400 650 / 850 625 / 625 Balance 2450.89 / 2465.04 619.29 / 424.89 134.62 / 134.62 Lab / Micro Data 06/28/24 03:27 06/28/24 03:27 Labs: Laboratory Results - last 24 hr 06/27/24 17:00: Sodium 143, Potassium 4.1, Chloride 116 H, Carbon Dioxide 21.0, Anion Gap 6, BUN 49 H, Creatinine 0.63, Estim Creat Clear Calc 93.40, Est GFR (MDRD) Af Amer 122, Est GFR (MDRD) Non-Af 101, BUN/Creatinine Ratio 77.4 H, G lucose 136 H, Calcium 7.9 L, Phosphorus 3.9, Magnesium 2.1 06/27/24 23:30: Vancomycin Trough 35.6 H 06/28/24 03:27: WBC 26.2 H, RBC 3.12 L, Hgb 10.3 L, Hct 30.3 L, MCV 97.1, MCH 33.0 H, MCHC 34.0, RDW Std Deviation 54.5 H, RDW Coeff of Heath 15.7 H, Plt Count 112 L, MPV 10.4, Immature Gran % (Auto) 1.100 H, Neut % (Auto) 89.2 H, Lymph % (Auto) 4.8 L, [place] % (Auto) 4.5, Eos % (Auto) 0.0, Baso % (Auto) 0.4, Absolute Neuts (auto) 23.4 H, Absolute Lymphs (auto) 1.27, Nucleated RBC % 0, Differential Comment SCANNED, Sodium 143, Potassium 4.2, Chloride 115 H, Carbon Dioxide 22.0, Anion Gap 6, BUN 48 H, Creatinine 0.63, Estim Creat Clear Calc 93.40, Est GFR (MDRD) Af Amer 123, Est GFR (MDRD) Non-Af 102, BUN/Creatinine Ratio 76.4 H, Glucose 128 H, Calcium 8.0 L Micro: Microbiology 06/26/24 14:55 Sputum, Induced/Lukens Gram Stain - Final 06/26/24 14:55 Sputum, Induced/Lukens Respiratory Culture - Preliminary GNR lactose employment instructional associate Presumptive C albicans 06/27/24 21:00 Urine Catheter - [place] Urine Culture - Preliminary Culture exhibits no growth. 06/27/24 17:15 Nasal Secretion MRSA (PCR) - Final 06/23/24 16:50 Urine, Catheterized Urine Culture - Final Culture exhibits no growth. 06/23/24 17:49 Blood Culture (Wb) - Arm Left Blood Culture - Preliminary No growth in 48 hours. 06/23/24 17:05 Blood Culture (Wb) - Right Wrist Blood Culture - Preliminary No growth in 48 hours. 06/24/24 01:20 Mucosa - Nose Respiratory Panel (PCR) - Final Parainfluenza 3 06/23/24 16:50 Urine, Random Legionella Antigen - Final 06/23/24 16:50 Urine, Random Streptococcus pneumoniae Antigen (M - Final Physical Exam Const Constitutional Narrative: extubated, lethargic. General Appearance: cooperative HEENT normocephalic, head/scalp atraumatic, hearing grossly normal bilaterally, moist oral mucous membranes and oropharynx normal Eyes PERRL, EOMs intact bilaterally and conjunctivae normal Neck no lymphadenopathy, supple and no JVD Lymph Lymphatic: no lymphadenopathy noted and no lymphedema noted Resp Resp Narrative: extubated to oxygen by nasal canula. Diminished breath sounds bibasally, no wheezes or crackles. Cardio regular rate, regular rhythm, S1 normal heart sound, S2 normal heart sound, no murmurs, no rub, no gallops and no clicks Cardio Narrative: Mild tachycardia GI GI Narrative: abdomen minimally distended, intact dressing over laparotomy site, no tenderness, guarding or rebound tenderness. Extremity Extremity Narrative: Decreased lean muscle mass, pedal pulses and radial pulses are 2+. Moves extremities spontaneously General Extremity: no tenderness to palpation of joints or extremities Skin Skin Narrative: P General Skin Exam: no breakdown Neuro Neuro Narrative: lethargic, frail, moves all limbs spontaneously. Sensorium / Orientation: awake Motor Exam: general weakness Psych Psych Narrative: lethargic Assessment & Plan Assessment/Plan (1) Infection due to parainfluenza virus 3: (2) Chronic hypoxic respiratory failure: (3) Intractable nausea and vomiting: (4) Small bowel obstruction: PLAN: Plan #Small bowel obstruction * Patient has a history of a partial hysterectomy. She did have small bowel follow-through which still showed no contrast in the colon today showed dilated loops of bowel. * She did have exploratory laparotomy on 06/26/2024 which was converted to open with resection of the small bowel count of distal small bowel obstruction. Today's postop day 2. * Patient transferred to the ICU afterwards as she could not be extubated successfully. Remains intubated and sedated * General Surgery on board. Management as per general surgery. * critical care also on board due to her being intubated. * WBCs further up to 26.2 today. * #Acute on chronic hypoxic respiratory failure * Could not be expected successfully after exploratory laparotomy. Was eventually transferred to the ICU. Was already on oxygen on account of parainfluenza infection * Today's postop day 2. Patient extubated to oxygen by nasal cannula. * Breathing. Has bronchodilators. Titrate oxygen to maintain saturation above 90%. * Critical care on board. * CT of the chest showed no evidence of PE and showed loculated right-sided and simple left pleural effusion and moderate centrilobular emphysema with cirrhosis and TIPS stent in place. * #Parainfluenza infection: * Management as above. #Hypernatremia: resolved. #Lactic acidosis: resolved #GERD: on PPI #Chronic thrombocytopenia: * Likely due to cirrhosis and splenomegaly. Will monitor closely. * platelets are 112 today, trending upwards * Is s/p TIPS. 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 Nicotine patch as needed DVT prophylaxis:lovenox Charges/Coding Visit Charges Inpatient E&M: 93664 Subs Hosp L3
[2024-06-28] MEDS: Ondansetron 4 MG/2 ML Vial IV (22:09)
[2024-06-28] MEDS: Phenol/Sodium Phenolate 180ML 3 SPRAY MUCOUS MEM (22:09)
[2024-06-28] MEDS: Morphine 2 MG/ML Syringe IV (22:09)
[2024-06-29] VITALS (31 sets, daily range): BP systolic 96–160; BP diastolic 45–82; PULSE 18–177; RESP 18–30; TEMP 37.2–37.6; O2SAT 28–100; BMI 24.5
[2024-06-29] MEDS: Vancomycin IV 1,000 MG/200 ML BAG 200 MG IV ×2 (02:35→14:07)
[2024-06-29] MEDS: Piperacil/Tazobactam 3.375 GM in 0.9% Normal Saline (50mL MB+) 50 ML IV ×3 (05:58→21:33)
[2024-06-29 06:22] LABS: Absolute Lymphocyte Count 0.88 X10^3/uL (0.83-4.51); Absolute Neutrophil Count 19.3 X10^3/uL (2.0-7.7); Basophil# 0.04 X10^3/uL; Basophil% 0.2 % (0-1); Eosinophil# 0.01 X10^3/uL; Hemoglobin 9.5 g/dL (12.0-15.0); Lymphocyte # 0.88 X10^3/ul (0.83-4.51); Lymphocyte % 4.1 % (19-41); Mean Corp Hgb Conc 33.9 g/dL (32-36); Mean Corpuscular Hgb 32.9 pg (27.0-32.0); Mean Corpuscular Volume 96.9 fL (81-99); Mean Platelet Vol. 10.7 fl (6.2-12.0); Monocyte# 1.26 X10^3/uL; Monocyte% 5.8 % (0-10); NRBC Flagged by Analyzer 0 % (0-5); Neutrophil # 19.27 X10^3/uL (2.7-7.7); Neutrophil % 88.8 % (47-70); POSITIVE COUNT YES; Platelet Count 94 K/mm3 (150-450); RBC Distribution Width CV 16.1 % (11.6-14.6); RBC Distribution Width SD 55.3 fl (35.1-43.9); Red Blood Count 2.89 M/mm3 (4.2-5.4); White Blood Count 21.7 K/mm3 (4.4-11.0)
[2024-06-29 06:35] LABS: Anion Gap 5 (5-15); BUN 35 mg/dL (7-18); BUN/Creat Ratio 97.8 RATIO (10-20); Calcium,Total 7.9 mg/dL (8.5-10.1); Chloride 118 mmol/L (98-107); Creatinine, Serum 0.36 mg/dL (0.55-1.02); EST Glomerular Filtration Rate 195 mL/min (>60); Est Glom Filt Rate - Afr Amer 236 mL/min (>60); Estimated Creatinine Clearance 163.45 ml/min; Glucose 98 mg/dL (74-106); Sodium Level 146 mmol/L (136-145)
[2024-06-29 06:47] LABS: Differential Indicated SCAN CRITERIA MET
[2024-06-29] MEDS: Ipratropium 0.5 MG/2.5 ML SOLUTION INHALATION ×3 (07:17→19:30)
--- NOTE | 2024-06-29 07:35 | PCM.PN.INT ---
Assessment & Plan Assessment/Plan (1) Chronic hypoxic respiratory failure: (2) Small bowel obstruction: PLAN: Plan RECOMMENDATIONS: 1. Antimicrobials to complete 7-day treatment course. 2. Continue bronchodilators and steroids. 3. Continue PPI therapy. 4. Continue nicotine replacement therapy. 5. Encourage incentive spirometer use and mobilize patient as tolerated. 6. Continue appropriate DVT prophylaxis. IMPRESSIONS: 1. Acute on chronic hypoxemic respiratory failure Improved. The patient underwent surgical intervention for her small bowel obstruction on June 26. Postprocedure, she was initially extubated, but apparently did not do well and was reintubated by anesthesia providers. She was recently hospitalized with a COPD exacerbation related to community-acquired pneumonia and parainfluenza infection. She has a known history of chronic hypoxemic respiratory failure with baseline oxygen requirement of 2 L/min. The patient was ultimately able to be extubated on June 28 and is doing well from a respiratory perspective on room air. Given the gram-negative's isolated from sputum culture, will continue antibiotics. Continue scheduled bronchodilators and steroids as well. 2. Septic shock Improved. Currently, the patient is demonstrating growth of gram-negative organism on sputum culture. CTA chest was completed which ruled out pulmonary embolism. Echocardiogram revealed an ejection fraction of approximately 40%. Will need to be cautious of third spacing in a patient with underlying cirrhosis. The patient has been weaned successfully from vasopressor support. Plan to continue supportive measures, including antibiotics, as noted above. 3. Small bowel obstruction status post surgical resection Continue routine postoperative care per general surgery recommendations. 4. 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 Continue supportive measures as noted above. This note was generated with [employer] dictation software. It may contain incorrect words, spelling, and punctuation that were not noted in checking the note before signing. Subjective Subjective The patient was seen and examined at the bedside this morning. Events from the last 24 hours have been reviewed. The patient currently has a low-grade fever but remains otherwise hemodynamically stable on room air. The patient was successfully extubated yesterday. She does report ongoing abdominal pain this morning. The patient is currently documented to be overall net +9.7 L for the hospitalization. White blood cell count is elevated at 21,000 with a hemoglobin of 9.5 g/dL and platelet count of 94,000. Objective Data Objective Data The patient's most recent lab work, culture data and imaging studies have all been personally reviewed. Sputum culture is currently demonstrating growth of a gram-negative emery, lactose blasting entry specialist. Surface echocardiogram was notable for moderate global hypokinesis of the LV with an ejection fraction of 40%. Vital Signs: Vital Signs Temp Pulse Resp BP Pulse Ox O2 Del Method O2 Flow Rate 99.2 F H 117 H 26 H 121/75 H 93 Room Air 35 06/29/24 07:00 06/29/24 07:00 06/29/24 07:00 06/29/24 07:00 06/29/24 07:00 06/29/24 07:00 06/28/24 05:00 FiO2 35 06/28/24 07:28 Oxygen Flow Rate (L/min) 35 Oxygen Delivery Method Room Air Weight: 161 lb 13.109 oz Body Mass Index (BMI) 24.5 Intake & Output: Intake and Output for Last 24 Hours 06/27/24 06/28/24 06/29/24 23:59 23:59 23:59 Intake Total 1269.29 / 1274.89 814.91 / 814.91 370 / 370 Output Total 650 / 850 825 / 825 200 / 200 Balance 619.29 / 424.89 -10.09 / -10.09 170 / 170 Lab / Micro Data Attestation: I reviewed the patient's lab results. 06/29/24 05:58 06/29/24 05:58 Labs: Laboratory Results - last 24 hr 06/29/24 05:58: WBC 21.7 H, RBC 2.89 L, Hgb 9.5 L, Hct 28.0 L, MCV 96.9, MCH 32.9 H, MCHC 33.9, RDW Std Deviation 55.3 H, RDW Coeff of Heath 16.1 H, Plt Count 94 L, MPV 10.7, Immature Gran % (Auto) 1.100 H, Neut % (Auto) 88.8 H, Lymph % (Auto) 4.1 L, Divide % (Auto) 5.8, Eos % (Auto) 0.0, Baso % (Auto) 0.2, Absolute Neuts (auto) 19.3 H, Absolute Lymphs (auto) 0.88, Nucleated RBC % 0, Sodium 146 H, Potassium 4.0, Chloride 118 H, Carbon Dioxide 23.0, Anion Gap 5, BUN 35 H, Creatinine 0.36 L, Estim Creat Clear Calc 163.45, Est GFR (MDRD) Af Amer 236, Est GFR (MDRD) Non-Af 195, BUN/Creatinine Ratio 97.8 H, Glucose 98, Calcium 7.9 L Micro: Microbiology 06/26/24 14:55 Sputum, Induced/Lukens Gram Stain - Final 06/26/24 14:55 Sputum, Induced/Lukens Respiratory Culture - Preliminary GNR lactose blasting entry specialist Presumptive C albicans 06/27/24 21:00 Urine Catheter - Serrato Urine Culture - Preliminary Culture exhibits no growth. 06/27/24 17:15 Nasal Secretion MRSA (PCR) - Final 06/23/24 16:50 Urine, Catheterized Urine Culture - Final Culture exhibits no growth. 06/23/24 17:49 Blood Culture (Wb) - Arm Left Blood Culture - Preliminary No growth in 48 hours. 06/23/24 17:05 Blood Culture (Wb) - Right Wrist Blood Culture - Preliminary No growth in 48 hours. 06/24/24 01:20 Mucosa - Nose Respiratory Panel (PCR) - Final Parainfluenza 3 06/23/24 16:50 Urine, Random Legionella Antigen - Final 06/23/24 16:50 Urine, Random Streptococcus pneumoniae Antigen (M - Final ABG Data ABG results: ABG 06/27/24 11:43 Specimen Type ART Sample Site Art Line pH 7.45 Bicarbonate Actual 20.5 L Total CO2 21 Base Excess -4 L O2 Saturation 89 L O2 % 25.0 ABG pCO2 29.6 L ABG pO2 52 L Respiration Rate 14 O2 Delivery Device Adult Vent Vent Mode AC Tidal Volume 450.0 POC PEEP 5 Radiography Diagnostic Testing: Radiology Impression Chest X-Ray 06/27/24 08:00 IMPRESSION: 1. Bibasilar atelectasis or pneumonia. 2. Right pleural effusion. Reading [facility] Abdomen/Pelvis CT 06/27/24 11:24 IMPRESSION: Bilateral pleural effusions with bibasilar atelectasis and/or infiltrate more prominent at the right lung base. Persistent mild dilatation of the distal small bowel although this has improved as compared to prior study. Findings suggestive of cirrhosis of the liver. Status post cholecystectomy and hysterectomy. Status post TIPS procedure. One or more dose reduction techniques were used (e.g., Automated exposure control, adjustment of the mA and/or kV according to patient size, use of iterative reconstruction technique). [facility] 06/27/24 11:50 IMPRESSION: 1. Bibasilar atelectasis or pneumonia. 2. Right pleural effusion. Reading Location: [facility] Echocardiogram 06/27/24 12:55 Interpretation Summary The left ventricular ejection fraction is 40 %. Normal LV size. There is mild to moderate global hypokinesis of the left ventricle. Ordering Physician: Cipriano Salgado Referring Physician: Edgar Dugan Performed By: César Saelh RCS Chest CTA 06/27/24 13:22 IMPRESSION: No pulmonary embolism. Loculated right and simple left pleural effusions. Bilateral associated atelectasis. Moderate centrilobular emphysema. Cirrhosis with a tips stent in place. Small volume upper abdominal ascites. One or more dose reduction techniques were used (e.g., Automated exposure control, adjustment of the mA and/or kV according to patient size, use of iterative reconstruction technique). Reading Location: [facility] Physical Exam Const alert and no apparent distress Constitutional Narrative: Chronically ill in appearance. Audibly moaning in bed. General Appearance: cooperative HEENT normocephalic and head/scalp atraumatic HEENT Narrative: Nasogastric tube remains in place. Eyes PERRL, EOMs intact bilaterally and conjunctivae normal Neck supple General: trachea midline and CVC in place Chest inspection of chest normal Resp no use of accessory muscles Effort and Inspection: tachypneic Auscultation: diminished lung sounds Cardio S1 normal heart sound and S2 normal heart sound Rate: tachycardic GI soft to palpation GI Narrative: Midline surgical dressing in place. Nondistended. Extremity General Extremity: edema; Negative for clubbing Skin no rashes or lesions noted Neuro CN's II-XII intact bilaterally, moves all extremities and no focal motor deficits Psych Mood & Affect: anxious Charges/Coding Visit Charges Inpatient E&M: 53377 Subs Hosp L3
[2024-06-29 07:58] LABS: Platelet Estimate ADEQUATE (ADEQ)
[2024-06-29] MEDS: Enoxaparin 40 MG/0.4 ML Syringe SC (08:34)
[2024-06-29] MEDS: Pantoprazole Sodium 40 MG in 0.9% Normal Saline (100mL MB+) 100 ML 330 MG IV (08:34)
[2024-06-29] MEDS: CHLORHEXIDINE GLUC 2% CLOTH 1 EACH TOWELETTE TOPICAL (08:35)
--- NOTE | 2024-06-29 08:42 | PCM.PN.SRG ---
Subjective Subjective Patient is extubated and complaining of abdominal pain Objective Data Objective Data Vital Signs: Vital Signs Temp Pulse Resp BP Pulse Ox O2 Del Method O2 Flow Rate 99.2 F H 117 H 26 H 121/75 H 93 Room Air 35 06/29/24 07:00 06/29/24 07:00 06/29/24 07:00 06/29/24 07:00 06/29/24 07:00 06/29/24 07:00 06/28/24 05:00 FiO2 35 06/28/24 07:28 Oxygen Flow Rate (L/min) 35 Oxygen Delivery Method Room Air Weight: 161 lb 13.109 oz Body Mass Index (BMI) 24.5 Intake & Output: Intake and Output for Last 24 Hours 06/27/24 06/28/24 06/29/24 23:59 23:59 23:59 Intake Total 1269.29 / 1274.89 814.91 / 814.91 370 / 370 Output Total 650 / 850 825 / 825 200 / 200 Balance 619.29 / 424.89 -10.09 / -10.09 170 / 170 Lab / Micro Data 06/29/24 05:58 06/29/24 05:58 Labs: Laboratory Results - last 24 hr 06/29/24 05:58: WBC 21.7 H, RBC 2.89 L, Hgb 9.5 L, Hct 28.0 L, MCV 96.9, MCH 32.9 H, MCHC 33.9, RDW Std Deviation 55.3 H, RDW Coeff of Heath 16.1 H, Plt Count 94 L, MPV 10.7, Immature Gran % (Auto) 1.100 H, Neut % (Auto) 88.8 H, Lymph % (Auto) 4.1 L, [place] % (Auto) 5.8, Eos % (Auto) 0.0, Baso % (Auto) 0.2, Absolute Neuts (auto) 19.3 H, Absolute Lymphs (auto) 0.88, Nucleated RBC % 0, Platelet Estimate ADEQUATE, Sodium 146 H, Potassium 4.0, Chloride 118 H, Carbon Dioxide 23.0, Anion Gap 5, BUN 35 H, Creatinine 0.36 L, Estim Creat Clear Calc 163.45, Est GFR (MDRD) Af Amer 236, Est GFR (MDRD) Non-Af 195, BUN/Creatinine Ratio 97.8 H, Glucose 98, Calcium 7.9 L Micro: Microbiology 06/27/24 14:00 Blood Culture (Wb) - Other Blood Culture - Preliminary 06/26/24 14:55 Sputum, Induced/Lukens Gram Stain - Final 06/26/24 14:55 Sputum, Induced/Lukens Respiratory Culture - Final Escherichia coli Presumptive C albicans 06/23/24 17:49 Blood Culture (Wb) - Arm Left Blood Culture - Final No growth in 5 days. 06/23/24 17:05 Blood Culture (Wb) - Right Wrist Blood Culture - Final No growth in 5 days. 06/27/24 21:00 Urine Catheter - Serrato Urine Culture - Preliminary Culture exhibits no growth. 06/27/24 17:15 Nasal Secretion MRSA (PCR) - Final 06/23/24 16:50 Urine, Catheterized Urine Culture - Final Culture exhibits no growth. 06/24/24 01:20 Mucosa - Nose Respiratory Panel (PCR) - Final Parainfluenza 3 06/23/24 16:50 Urine, Random Legionella Antigen - Final 06/23/24 16:50 Urine, Random Streptococcus pneumoniae Antigen (M - Final Physical Exam Const no apparent distress Resp normal respiratory effort Cardio regular rhythm Rate: tachycardic GI soft to palpation Palpation: tender Assessment & Plan Assessment/Plan (1) Small bowel obstruction: PLAN: The patient is postoperative day 3 from laparotomy with small bowel resection. The patient was extubated yesterday. She has not had any bowel function. Her NG is putting out minimal. I will remove her NG tube. Continue to await diet for bowel function. Shakir Fritz MD Pager: [facility] [address] [place] [address], [address] [place] [address] Office:
[2024-06-29] MEDS: proMETHazine 25 MG/ML Syringe 12.5 MG IM ×2 (08:43→21:56)
[2024-06-29] MEDS: Morphine 2 MG/ML Syringe IV ×2 (08:43→21:55)
--- NOTE | 2024-06-29 11:08 | PN_ITS ---
Subjective Subjective Patient seen and examined. She remains very lethargic. Unable to do reveiw of systems due to her lethargy. She is on room air though she is tachycardic and tachypneic. WBC today is 21.7. Sodium is 146. Objective Data Objective Data Vital Signs: Vital Signs Temp Pulse Resp BP Pulse Ox O2 Del Method O2 Flow Rate 99.2 F H 115 H 25 H 121/75 H 94 Room Air 35 06/29/24 07:00 06/29/24 07:17 06/29/24 07:17 06/29/24 07:00 06/29/24 07:17 06/29/24 07:17 06/28/24 05:00 FiO2 35 06/28/24 07:28 Oxygen Flow Rate (L/min) 35 Oxygen Delivery Method Room Air Weight: 161 lb 13.109 oz Body Mass Index (BMI) 24.5 Intake & Output: Intake and Output for Last 24 Hours 06/27/24 06/28/24 06/29/24 23:59 23:59 23:59 Intake Total 1269.29 / 1274.89 814.91 / 814.91 530 / 530 Output Total 650 / 850 825 / 825 200 / 200 Balance 619.29 / 424.89 -10.09 / -10.09 330 / 330 Lab / Micro Data 06/29/24 05:58 06/29/24 05:58 Labs: Laboratory Results - last 24 hr 06/29/24 05:58: WBC 21.7 H, RBC 2.89 L, Hgb 9.5 L, Hct 28.0 L, MCV 96.9, MCH 32.9 H, MCHC 33.9, RDW Std Deviation 55.3 H, RDW Coeff of Heath 16.1 H, Plt Count 94 L, MPV 10.7, Immature Gran % (Auto) 1.100 H, Neut % (Auto) 88.8 H, Lymph % (Auto) 4.1 L, Hart % (Auto) 5.8, Eos % (Auto) 0.0, Baso % (Auto) 0.2, Absolute Neuts (auto) 19.3 H, Absolute Lymphs (auto) 0.88, Nucleated RBC % 0, Platelet Estimate ADEQUATE, Sodium 146 H, Potassium 4.0, Chloride 118 H, Carbon Dioxide 23.0, Anion Gap 5, BUN 35 H, Creatinine 0.36 L, Estim Creat Clear Calc 163.45, Est GFR (MDRD) Af Amer 236, Est GFR (MDRD) Non-Af 195, BUN/Creatinine Ratio 97.8 H, Glucose 98, Calcium 7.9 L Micro: Microbiology 06/27/24 14:00 Blood Culture (Wb) - Other Blood Culture - Preliminary 06/26/24 14:55 Sputum, Induced/Lukens Gram Stain - Final 06/26/24 14:55 Sputum, Induced/Lukens Respiratory Culture - Final Escherichia coli Presumptive C albicans 06/23/24 17:49 Blood Culture (Wb) - Arm Left Blood Culture - Final No growth in 5 days. 06/23/24 17:05 Blood Culture (Wb) - Right Wrist Blood Culture - Final No growth in 5 days. 06/27/24 21:00 Urine Catheter - Serrato Urine Culture - Preliminary Culture exhibits no growth. 06/27/24 17:15 Nasal Secretion MRSA (PCR) - Final 06/23/24 16:50 Urine, Catheterized Urine Culture - Final Culture exhibits no growth. 06/24/24 01:20 Mucosa - Nose Respiratory Panel (PCR) - Final Parainfluenza 3 06/23/24 16:50 Urine, Random Legionella Antigen - Final 06/23/24 16:50 Urine, Random Streptococcus pneumoniae Antigen (M - Final Physical Exam Const Constitutional Narrative: patient very weak and lethargic. General Appearance: cooperative HEENT normocephalic, head/scalp atraumatic, hearing grossly normal bilaterally, moist oral mucous membranes and oropharynx normal Eyes PERRL, EOMs intact bilaterally and conjunctivae normal Neck no lymphadenopathy, supple and no JVD Lymph Lymphatic: no lymphadenopathy noted and no lymphedema noted Resp Resp Narrative: extubated to oxygen by nasal canula. Diminished breath sounds bibasally, no wheezes or crackles. Cardio regular rhythm, S1 normal heart sound, S2 normal heart sound and no murmurs Cardio Narrative: Mild tachycardia GI GI Narrative: abdomen minimally distended, intact dressing over laparotomy site, no tenderness, guarding or rebound tenderness. Extremity normal capillary refill, no clubbing, cyanosis or edema and no calf tenderness Extremity Narrative: Decreased lean muscle mass, pedal pulses and radial pulses are 2+. Moves extremities spontaneously General Extremity: no tenderness to palpation of joints or extremities Skin General Skin Exam: no breakdown Neuro Neuro Narrative: remains lethargic, frail, moves all limbs spontaneously. Motor Exam: general weakness Psych Psych Narrative: lethargic Mood & Affect: anxious Assessment & Plan Assessment/Plan (1) Infection due to parainfluenza virus 3: (2) Chronic hypoxic respiratory failure: (3) Intractable nausea and vomiting: (4) Small bowel obstruction: PLAN: Plan #Small bowel obstruction * Patient has a history of a partial hysterectomy. She did have small bowel follow-through which still showed no contrast in the colon today showed dilated loops of bowel. * She did have exploratory laparotomy on 06/26/2024 which was converted to open with resection of the small bowel count of distal small bowel obstruction. Today's postop day 3. * Patient transferred to the ICU afterwards as she could not be extubated successfully. Remains intubated and sedated * General Surgery on board. Management as per general surgery. * WBCs has trended down to 21.6 today * #Acute on chronic hypoxic respiratory failure * Could not be expected successfully after exploratory laparotomy. Was eventually transferred to the ICU. Was already on oxygen on account of parainfluenza infection * Today's postop day 3. Patient extubated to oxygen by nasal cannula. * Breathing treatment with bronchodilators. Titrate oxygen to maintain saturation above 90%. * Critical care on board. * CT of the chest showed no evidence of PE and showed loculated right-sided and simple left pleural effusion and moderate centrilobular emphysema with cirrhosis and TIPS stent in place. * #Parainfluenza infection: * Management as above. #Hypernatremia: sodium is 146 today. #Lactic acidosis: resolved #GERD: on PPI #Chronic thrombocytopenia: * Likely due to cirrhosis and splenomegaly. Will monitor closely. * platelets are down to 94 today. * Is s/p TIPS. 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 Nicotine patch as needed DVT prophylaxis:lovenox 15:50 I was informed by the nurse at this time that patient had gone into A-fib with RVR with a heart rate going up to the 160s. Patient has apparently been in A- fib during this admission. Will give a bolus of Cardizem. If heart rate is not well-controlled will start on Cardizem drip. Will continue on Lovenox 40 mg daily for now as patient recently had surgery. She transition to oral medication once she has improved and she is on oral diet. Charges/Coding Visit Charges Inpatient E&M: 18691 Subs Hosp L3
--- NOTE | 2024-06-29 12:17 | CHAPLAIN ---
Type of Pastoral Visit ___ Initial Visit ___ Follow-up Visit ___ On-call Visit ___ General Patient Visit ___ Spiritual Assessment ___ Family Conference ___ Bereavement ___ Rapid Response ___ Code Blue ___ Other (describe below) Pastoral Care Referral From ___ Patient ___ Family ___ Nurse ___ Physician ___ Sisal Picker ___ Technician Trainee ___ Other (describe below) Sacrament/Intervention ___ Active listening ___ Anointing ___ Tenriism ___ Bereavement ___ Communion ___ Chen exploration ___ ___ Life review ___ Prayer ___ Reconciliation ___ Sacrament of Sick ___ Supportive presence ___ Wedding ___ Other (describe below) Pastoral Comments patient was removed from the vent; pt is sleeping and has only made minimal efforts to respond to questions per her nurse; daughter is in the room but due to isolation precautions and patient's condition this housekeeping attendant will wait until a better time to provide interventions
--- NOTE | 2024-06-29 14:14 | PCM.RX.CS ---
Consult Antibiotic Management Pharmacy has been consulted to manage selected antibiotic: Vancomycin Type of Intervention Type of Consult: Follow-up Suspected Infection Suspected Infection: Sepsis and Pneumonia Labs Labs: Sodium 146 mmol/L (136-145) H 06/29/24 05:58 Potassium 4.0 mmol/L (3.5-5.1) 06/29/24 05:58 Chloride 118 mmol/L (98-107) H 06/29/24 05:58 Carbon Dioxide 23.0 mmol/L (21.0-32.0) 06/29/24 05:58 Anion Gap 5 (5-15) 06/29/24 05:58 BUN 35 mg/dL (7-18) H 06/29/24 05:58 Creatinine 0.36 mg/dL (0.55-1.02) L 06/29/24 05:58 Est GFR (MDRD) Af Amer 236 mL/min (>60) 06/29/24 05:58 Est GFR (MDRD) Non-Af 195 mL/min (>60) 06/29/24 05:58 BUN/Creatinine Ratio 97.8 RATIO (10-20) H 06/29/24 05:58 Glucose 98 mg/dL (74-106) 06/29/24 05:58 Vancomycin Trough 17.0 ug/mL (5.0-15.0) H 06/29/24 13:25 Microbiology Microbiology: Microbiology 06/27/24 14:00 Blood Culture (Wb) - Other Blood Culture - Preliminary 06/26/24 14:55 Sputum, Induced/Lukens Gram Stain - Final 06/26/24 14:55 Sputum, Induced/Lukens Respiratory Culture - Final Escherichia coli Presumptive C albicans 06/23/24 17:49 Blood Culture (Wb) - Arm Left Blood Culture - Final No growth in 5 days. 06/23/24 17:05 Blood Culture (Wb) - Right Wrist Blood Culture - Final No growth in 5 days. 06/27/24 21:00 Urine Catheter - Serrato Urine Culture - Preliminary Culture exhibits no growth. 06/27/24 17:15 Nasal Secretion MRSA (PCR) - Final 06/23/24 16:50 Urine, Catheterized Urine Culture - Final Culture exhibits no growth. 06/24/24 01:20 Mucosa - Nose Respiratory Panel (PCR) - Final Parainfluenza 3 06/23/24 16:50 Urine, Random Legionella Antigen - Final 06/23/24 16:50 Urine, Random Streptococcus pneumoniae Antigen (M - Final Goal Trough Goal Trough: 15-20 mcg/mL Pharmacy Plan for Drug Dosing Pharmacy Plan for Drug Dosing: VANCOMYCIN LEVEL RECEIVED Current Vancomycin Dose: 1000mg q12h (,) Number of Doses Received: x3 of current dose Vancomycin Level: 17 (drawn 06/29 at 1325) Hours Since Last Dose: 11 hours since last 1000mg dose Renal Function: SrCr 0.36 Renal Function Trend: SrCr stable Lab/Micro: Vancomycin Plan/Comments: resulted trough of 17 it within the ordered goal trough range of 15-20. recommend continuing current dose of 1000mg q12h and checking a trough prior to the 4th dose Pending Level: 07/01/24 at 0130 Pharmacy Service will continue to monitor and adjust dosing as required. Follow-Up Labs Follow-Up Labs: Trough: Vancomycin (07/01/24 at 0130)
[2024-06-29] MEDS: dilTIAZem 25 MG/5 ML Vial IV BOLUS (16:01)
[2024-06-29] MEDS: Diltiazem 125 MG in Dextrose 5%-Water (100mL Bag) 100 ML IV (16:57)
[2024-06-29] MEDS: Amiodarone 150 MG in Dextrose 5%-Water (100mL Bag) 100 ML 600 MG IV BOLUS (19:00)
[2024-06-29] MEDS: Lactated Ringers 500 ML 999 ML IV (19:01)
[2024-06-29] MEDS: Lactated Ringers 1,000 ML 75 ML IV (19:01)
[2024-06-29] MEDS: Amiodarone 360 MG in Dextrose 5% Viaflo Bag 192.8 ML 33.3 MG CONT INF (19:11)
[2024-06-29] MEDS: Enoxaparin 80 MG/0.8 ML Syringe 70 MG SC (21:34)
[2024-06-30] VITALS (24 sets, daily range): BP systolic 101–141; BP diastolic 59–116; PULSE 83–120; RESP 18–29; TEMP 36.8–37.6; O2SAT 90–100; BMI 24.1
[2024-06-30] MEDS: Amiodarone 360 MG in Dextrose 5% Viaflo Bag 192.8 ML 16.7 MG CONT INF ×2 (01:27→12:18)
[2024-06-30] MEDS: Diltiazem 125 MG in Dextrose 5%-Water (100mL Bag) 100 ML 15 MG IV ×2 (01:47→10:47)
[2024-06-30] MEDS: CHLORHEXIDINE GLUC 2% CLOTH 1 EACH TOWELETTE TOPICAL (02:09)
[2024-06-30] MEDS: Vancomycin IV 1,000 MG/200 ML BAG 200 MG IV ×2 (02:09→13:28)
[2024-06-30] MEDS: Piperacil/Tazobactam 3.375 GM in 0.9% Normal Saline (50mL MB+) 50 ML IV ×3 (06:21→22:27)
--- NOTE | 2024-06-30 06:38 | PN.SURG_ITS ---
Subjective Subjective Patient has productive coughing. She does report she is passing a small amount of flatus. She denies nausea or vomiting. Abdominal pain is well-controlled. She went into A-fib RVR overnight Objective Data Objective Data Vital Signs: Vital Signs Temp Pulse Resp BP Pulse Ox O2 Del Method O2 Flow Rate 99.0 F 88 22 H 117/76 96 Room Air 2 06/30/24 04:00 06/30/24 04:00 06/30/24 04:00 06/30/24 04:00 06/30/24 04:00 06/30/24 04:00 06/30/24 00:00 FiO2 2 06/30/24 01:00 Oxygen Flow Rate (L/min) 2 Oxygen Delivery Method Room Air Weight: 158 lb 11.725 oz Body Mass Index (BMI) 24.1 Intake & Output: Intake and Output for Last 24 Hours 06/28/24 06/29/24 06/30/24 23:59 23:59 23:59 Intake Total 814.91 / 814.91 1465.75 / 1480.75 525.00 / 525.00 Output Total 825 / 825 750 / 750 Balance -10.09 / -10.09 715.75 / 730.75 525.00 / 525.00 Lab / Micro Data 06/29/24 05:58 06/29/24 05:58 Labs: Laboratory Results - last 24 hr 06/29/24 05:58: Platelet Estimate ADEQUATE 06/29/24 13:25: Vancomycin Trough 17.0 H Micro: Microbiology 06/27/24 14:00 Blood Culture (Wb) - Other Blood Culture - Preliminary 06/26/24 14:55 Sputum, Induced/Lukens Gram Stain - Final 06/26/24 14:55 Sputum, Induced/Lukens Respiratory Culture - Final Escherichia coli Presumptive C albicans 06/23/24 17:49 Blood Culture (Wb) - Arm Left Blood Culture - Final No growth in 5 days. 06/23/24 17:05 Blood Culture (Wb) - Right Wrist Blood Culture - Final No growth in 5 days. 06/27/24 21:00 Urine Catheter - Serrato Urine Culture - Preliminary Culture exhibits no growth. 06/27/24 17:15 Nasal Secretion MRSA (PCR) - Final 06/23/24 16:50 Urine, Catheterized Urine Culture - Final Culture exhibits no growth. 06/24/24 01:20 Mucosa - Nose Respiratory Panel (PCR) - Final Parainfluenza 3 06/23/24 16:50 Urine, Random Legionella Antigen - Final 06/23/24 16:50 Urine, Random Streptococcus pneumoniae Antigen (M - Final Physical Exam Const oriented x3 Resp normal respiratory effort Cardio Rate: tachycardic Rhythm: abnormal rhythm GI soft to palpation Palpation: tender Assessment & Plan Assessment/Plan (1) Small bowel obstruction: PLAN: Patient went into A-fib RVR. She is currently on amiodarone and diltiazem drip. She reports that she is passing some flatus so I will start her on some clear liquids. Shakir Fritz MD Pager: [facility] [address] [place] [address], [address] [place] [address] Office:
[2024-06-30 06:41] LABS: Absolute Lymphocyte Count 0.92 X10^3/uL (0.83-4.51); Absolute Neutrophil Count 11.7 X10^3/uL (2.0-7.7); Basophil# 0.04 X10^3/uL; Basophil% 0.3 % (0-1); Eosinophil# 0.01 X10^3/uL; Eosinophils% 0.1 % (0-5); Hematocrit 30.6 % (37-47); Hemoglobin 10.3 g/dL (12.0-15.0); Lymphocyte # 0.92 X10^3/ul (0.83-4.51); Lymphocyte % 6.5 % (19-41); Mean Corp Hgb Conc 33.7 g/dL (32-36); Mean Corpuscular Hgb 33.2 pg (27.0-32.0); Mean Corpuscular Volume 98.7 fL (81-99); Mean Platelet Vol. 10.4 fl (6.2-12.0); Monocyte# 1.22 X10^3/uL; Monocyte% 8.7 % (0-10); NRBC Flagged by Analyzer 0.2 % (0-5); Neutrophil # 11.73 X10^3/uL (2.7-7.7); Neutrophil % 83.5 % (47-70); Platelet Count 120 K/mm3 (150-450); RBC Distribution Width CV 16.7 % (11.6-14.6); RBC Distribution Width SD 57.5 fl (35.1-43.9); White Blood Count 14.1 K/mm3 (4.4-11.0)
--- NOTE | 2024-06-30 07:05 | PN.CC_ITS ---
Assessment & Plan Assessment/Plan (1) Chronic hypoxic respiratory failure: (2) Small bowel obstruction: PLAN: Plan RECOMMENDATIONS: 1. Antimicrobials to complete 7-day treatment course. 2. Continue bronchodilators and steroids. 3. At discharge, recommend 5-day prednisone burst of 40 mg daily. 4. Management of atrial fibrillation per cardiology. 5. Continue PPI therapy. 6. Continue nicotine replacement therapy. 7. Encourage incentive spirometer use and mobilize patient as tolerated. 8. Continue appropriate DVT prophylaxis. 9. Dietary advancement per general surgery. 10. Will sign off from a critical care perspective. Please call with any additional questions. IMPRESSIONS: 1. Acute on chronic hypoxemic respiratory failure Resolved. The patient underwent surgical intervention for her small bowel obstruction on June 26. Postprocedure, she was initially extubated, but apparently did not do well and was reintubated by anesthesia providers. She was recently hospitalized with a COPD exacerbation related to community-acquired pneumonia and parainfluenza infection. She has a known history of chronic hypoxemic respiratory failure with baseline oxygen requirement of 2 L/min. The patient was ultimately able to be extubated on June 28 and is doing well from a respiratory perspective on room air. Given the E. coli isolated from sputum culture, will continue antibiotics. Continue scheduled bronchodilators and steroids as well. 2. Septic shock Resolved. Currently, the patient is demonstrating growth of E. coli on sputum culture. CTA chest was completed which ruled out pulmonary embolism. Echocardiogram revealed an ejection fraction of approximately 40%. Will need to be cautious of third spacing in a patient with underlying cirrhosis. The patient has been weaned successfully from vasopressor support. Plan to continue supportive measures, including antibiotics, as noted above. 3. Small bowel obstruction status post surgical resection Continue routine postoperative care per general surgery recommendations. 4. Atrial fibrillation with RVR Medical management per cardiology recommendations. 5. 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 Continue supportive measures as noted above. This note was generated with Mimviation software. It may contain incorrect words, spelling, and punctuation that were not noted in checking the note before signing. Subjective Subjective The patient was seen and examined at the bedside this morning. Events from the last 24 hours have been reviewed. The patient is currently afebrile, hemodynamically stable and maintaining appropriate oxygen saturations on room air. The patient is currently documented to be overall net +11.4 L for the hospitalization. She continues to report abdominal pain. The patient remains in atrial fibrillation, which is being medically managed by cardiology. White blood cell count has improved to 14,000. Hemoglobin and platelet count are stable. Chemistry profile is unremarkable. Objective Data Objective Data The patient's most recent lab work, culture data and imaging studies have all been personally reviewed. Sputum culture is currently demonstrating growth of E. coli. Surface echocardiogram was notable for moderate global hypokinesis of the LV with an ejection fraction of 40%. Vital Signs: Vital Signs Temp Pulse Resp BP Pulse Ox O2 Del Method O2 Flow Rate 99.0 F 88 22 H 117/76 96 Room Air 2 06/30/24 04:00 06/30/24 04:00 06/30/24 04:00 06/30/24 04:00 06/30/24 04:00 06/30/24 04:00 06/30/24 00:00 FiO2 2 06/30/24 01:00 Oxygen Flow Rate (L/min) 2 Oxygen Delivery Method Room Air Weight: 158 lb 11.725 oz Body Mass Index (BMI) 24.1 Intake & Output: Intake and Output for Last 24 Hours 06/28/24 06/29/24 06/30/24 23:59 23:59 23:59 Intake Total 814.91 / 814.91 1465.75 / 1480.75 525.00 / 525.00 Output Total 825 / 825 750 / 750 Balance -10.09 / -10.09 715.75 / 730.75 525.00 / 525.00 Lab / Micro Data Attestation: I reviewed the patient's lab results. 06/30/24 06:25 06/30/24 06:25 Labs: Laboratory Results - last 24 hr 06/29/24 05:58: Platelet Estimate ADEQUATE 06/29/24 13:25: Vancomycin Trough 17.0 H 06/30/24 06:25: WBC 14.1 H, RBC 3.10 L, Hgb 10.3 L, Hct 30.6 L, MCV 98.7, MCH 33.2 H, MCHC 33.7, RDW Std Deviation 57.5 H, RDW Coeff of Heath 16.7 H, Plt Count 120 L, MPV 10.4, Immature Gran % (Auto) 0.900, Neut % (Auto) 83.5 H, Lymph % (Auto) 6.5 L, [place] % (Auto) 8.7, Eos % (Auto) 0.1, Baso % (Auto) 0.3, Absolute Neuts (auto) 11.7 H, Absolute Lymphs (auto) 0.92, Nucleated RBC % 0.2 Micro: Microbiology 06/27/24 14:00 Blood Culture (Wb) - Other Blood Culture - Preliminary 06/26/24 14:55 Sputum, Induced/Lukens Gram Stain - Final 06/26/24 14:55 Sputum, Induced/Lukens Respiratory Culture - Final Escherichia coli Presumptive C albicans 06/23/24 17:49 Blood Culture (Wb) - Arm Left Blood Culture - Final No growth in 5 days. 06/23/24 17:05 Blood Culture (Wb) - Right Wrist Blood Culture - Final No growth in 5 days. 06/27/24 21:00 Urine Catheter - Serrato Urine Culture - Preliminary Culture exhibits no growth. 06/27/24 17:15 Nasal Secretion MRSA (PCR) - Final 06/23/24 16:50 Urine, Catheterized Urine Culture - Final Culture exhibits no growth. 06/24/24 01:20 Mucosa - Nose Respiratory Panel (PCR) - Final Parainfluenza 3 06/23/24 16:50 Urine, Random Legionella Antigen - Final 06/23/24 16:50 Urine, Random Streptococcus pneumoniae Antigen (M - Final ABG Data ABG results: ABG 06/27/24 11:43 Specimen Type ART Sample Site Art Line pH 7.45 Bicarbonate Actual 20.5 L Total CO2 21 Base Excess -4 L O2 Saturation 89 L O2 % 25.0 ABG pCO2 29.6 L ABG pO2 52 L Respiration Rate 14 O2 Delivery Device Adult Vent Vent Mode AC Tidal Volume 450.0 POC PEEP 5 Radiography Diagnostic Testing: Radiology Impression Chest X-Ray 06/27/24 08:00 IMPRESSION: 1. Bibasilar atelectasis or pneumonia. 2. Right pleural effusion. Reading Location: [facility] Abdomen/Pelvis CT 06/27/24 11:24 IMPRESSION: Bilateral pleural effusions with bibasilar atelectasis and/or infiltrate more prominent at the right lung base. Persistent mild dilatation of the distal small bowel although this has improved as compared to prior study. Findings suggestive of cirrhosis of the liver. Status post cholecystectomy and hysterectomy. Status post TIPS procedure. One or more dose reduction techniques were used (e.g., Automated exposure control, adjustment of the mA and/or kV according to patient size, use of iterative reconstruction technique). Reading Location: [id number] Chest X-Ray 06/27/24 11:50 IMPRESSION: 1. Bibasilar atelectasis or pneumonia. 2. Right pleural effusion. Reading Location: [facility] Echocardiogram 06/27/24 12:55 Interpretation Summary The left ventricular ejection fraction is 40 %. Normal LV size. There is mild to moderate global hypokinesis of the left ventricle. Ordering Physician: Cipriano Salgado Referring Physician: Edgar Dugan Performed By: César Saleh RCS Chest CTA 06/27/24 13:22 IMPRESSION: No pulmonary embolism. Loculated right and simple left pleural effusions. Bilateral associated atelectasis. Moderate centrilobular emphysema. Cirrhosis with a tips stent in place. Small volume upper abdominal ascites. One or more dose reduction techniques were used (e.g., Automated exposure control, adjustment of the mA and/or kV according to patient size, use of iterative reconstruction technique). Reading Location: [id number] Physical Exam Const alert and no apparent distress Constitutional Narrative: Chronically ill in appearance. Audibly moaning in bed. General Appearance: cooperative HEENT normocephalic and head/scalp atraumatic Eyes PERRL, EOMs intact bilaterally and conjunctivae normal Neck supple General: trachea midline and CVC in place Chest inspection of chest normal Resp no use of accessory muscles Auscultation: diminished lung sounds Cardio S1 normal heart sound and S2 normal heart sound Rate: tachycardic Rhythm: abnormal rhythm GI soft to palpation GI Narrative: Midline surgical dressing in place. Nondistended. Extremity General Extremity: edema; Negative for clubbing Skin no rashes or lesions noted Neuro CN's II-XII intact bilaterally, moves all extremities and no focal motor deficits Psych Mood & Affect: anxious Charges/Coding Visit Charges Inpatient E&M: 64594 Subs Hosp L2
[2024-06-30 07:09] LABS: Anion Gap 3 (5-15); BUN 31 mg/dL (7-18); BUN/Creat Ratio 78.1 RATIO (10-20); Calcium,Total 8.1 mg/dL (8.5-10.1); Chloride 117 mmol/L (98-107); EST Glomerular Filtration Rate 173 mL/min (>60); Est Glom Filt Rate - Afr Amer 209 mL/min (>60); Glucose 131 mg/dL (74-106); Potassium 4.2 mmol/L (3.5-5.1); Sodium Level 144 mmol/L (136-145)
[2024-06-30] MEDS: Ipratropium 0.5 MG/2.5 ML SOLUTION INHALATION ×3 (07:20→19:15)
[2024-06-30] MEDS: Morphine 2 MG/ML Syringe IV ×3 (08:14→17:35)
[2024-06-30] MEDS: proMETHazine 25 MG/ML Syringe 12.5 MG IM ×2 (08:14→17:35)
[2024-06-30] MEDS: Pantoprazole Sodium 40 MG in 0.9% Normal Saline (100mL MB+) 100 ML 330 MG IV (09:14)
[2024-06-30] MEDS: Enoxaparin 80 MG/0.8 ML Syringe 70 MG SC ×2 (09:15→22:28)
--- NOTE | 2024-06-30 11:50 | CASEMGMT ---
Social Work SW spoke w/pt in room, daughter Le is present as well. SW spoke w/both of them about considering going to a longterm facility at discharge. Pt was concerned she would lose all her money. SW educated pt that we are talking about pt going short term for rehab where we would see if insurance will cover, rather than buttermaker helper to live. SW explained if insurance authorizes rehab they would cover and she would not lose her money. SW explained it would be for a couple of weeks so she can get stronger and go home. Pt is agreeable. SW gave daughter the list from [facility] of longterm facilities in network w/pt's insurance, in pt's preferred geographic area and complete w/quality and resource use data from [facility]. Daughter states to send a referral to [facility] as it's near to where she lives and she knows people who work there. Referral sent via [facility], SW will continue to follow. Pt will be here through the weekend, SW will follow up on Wednesday. DELFINO Huang
--- NOTE | 2024-06-30 12:01 | CASEMGMT ---
[facility] reports that they are not active with the patient as she was sent to the hospital before services were started. If pt were to DC home with HH, a new referral would need to be sent. VEHICLE BODY SANDER CM updated and aware.
--- NOTE | 2024-06-30 12:58 | CHAPLAIN ---
Type of Pastoral Visit ___ Initial Visit _x__ Follow-up Visit ___ On-call Visit ___ General Patient Visit ___ Spiritual Assessment ___ Family Conference ___ Bereavement ___ Rapid Response ___ Code Blue ___ Other (describe below) Pastoral Care Referral From _x__ Patient ___ Family ___ Nurse ___ Physician ___ Paving Crew Foreman ___ Coding Validator ___ Other (describe below) Sacrament/Intervention _x__ Active listening ___ Anointing ___ Oriental Orthodox ___ Bereavement ___ Communion _x__ Chen exploration ___ _x__ Life review _x__ Prayer ___ Reconciliation ___ Sacrament of Sick _x__ Supportive presence ___ Wedding ___ Other (describe below) Pastoral Comments patient is awake and welcoming; pt acknowledges that she came close to but is very thankful to be living and improved; pt acknowledges need for time and effort in recovery and accepts that; pt speaks about her family and her chen in God; pt has some questions of a spiritual nature that she asks; pt asks for prayer support; soon after this visit the patient requested a nurse to get the college physics instructor again because she had more questions; pt is concerned about a daughter that lives out of state and was inquiring about interventions for this daughter; patient is encouraged to speak to her family members in this area and to locate that other daughter to seek help in her location; another prayer was given
--- NOTE | 2024-06-30 14:19 | CASEMGMT ---
Social Work Pt was accepted at [facility], SW informed [facility] via [employer] that we will let them know next week when to start precert. SW attempted to tell pt, she is sleeping. SW called daughter Le, let her know that pt was accepted at [facility], and will have them start precert when she is medically ready, sometime next week. Daughter states understanding. SW let her know did not yet tell pt as pt was sleeping. Daughter states she will let pt know. SW will continue to follow, will follow up w/updates to [facility] next week and have [facility] start precert when appropriate. DELFINO Huang
--- NOTE | 2024-06-30 14:31 | PN_ITS ---
Subjective Subjective Patient seen and examined. Her daughter was by bedside. Patient was more alert and awake today and very communicative. She complained of abdominal pain over the site of the surgery. She denied any lightheadedness or dizziness, nausea vomiting or any other symptoms. She went into afib with RVR overnight and had to be put on cardizem drip. Her HR still remained elevated so she was also placed on amiodarone drip. She remains on amiodarone and cardizem drip. Review of systems is otherwise negative. Objective Data Objective Data Vital Signs: Vital Signs Temp Pulse Resp BP Pulse Ox O2 Del Method O2 Flow Rate 98.3 F 95 27 H 132/75 H 95 Room Air 2 06/30/24 13:00 06/30/24 13:00 06/30/24 13:00 06/30/24 13:00 06/30/24 13:00 06/30/24 13:00 06/30/24 00:00 FiO2 2 06/30/24 01:00 Oxygen Flow Rate (L/min) 2 Oxygen Delivery Method Room Air Weight: 158 lb 11.725 oz Body Mass Index (BMI) 24.1 Intake & Output: Intake and Output for Last 24 Hours 06/28/24 06/29/24 06/30/24 23:59 23:59 23:59 Intake Total 814.91 / 814.91 1465.75 / 1480.75 / Output Total 825 / 825 750 / 750 775 / 775 Balance -10.09 / -10.09 715.75 / 730.75 1216.20 / 1216.20 Lab / Micro Data 06/30/24 06:25 06/30/24 06:25 Labs: Laboratory Results - last 24 hr 06/30/24 06:25: WBC 14.1 H, RBC 3.10 L, Hgb 10.3 L, Hct 30.6 L, MCV 98.7, MCH 33.2 H, MCHC 33.7, RDW Std Deviation 57.5 H, RDW Coeff of Heath 16.7 H, Plt Count 120 L, MPV 10.4, Immature Gran % (Auto) 0.900, Neut % (Auto) 83.5 H, Lymph % (Auto) 6.5 L, Sunflower % (Auto) 8.7, Eos % (Auto) 0.1, Baso % (Auto) 0.3, Absolute Neuts (auto) 11.7 H, Absolute Lymphs (auto) 0.92, Nucleated RBC % 0.2, Sodium 144, Potassium 4.2, Chloride 117 H, Carbon Dioxide 24.0, Anion Gap 3 L, BUN 31 H , Creatinine 0.40 L, Estim Creat Clear Calc 147.10, Est GFR (MDRD) Af Amer 209, Est GFR (MDRD) Non-Af 173, BUN/Creatinine Ratio 78.1 H, Glucose 131 H, Calcium 8.1 L Micro: Microbiology 06/27/24 14:00 Blood Culture (Wb) - Other Blood Culture - Preliminary 06/27/24 21:00 Urine Catheter - Serrato Urine Culture - Final Culture exhibits no growth. 06/26/24 14:55 Sputum, Induced/Lukens Gram Stain - Final 06/26/24 14:55 Sputum, Induced/Lukens Respiratory Culture - Final Escherichia coli Presumptive C albicans 06/23/24 17:49 Blood Culture (Wb) - Arm Left Blood Culture - Final No growth in 5 days. 06/23/24 17:05 Blood Culture (Wb) - Right Wrist Blood Culture - Final No growth in 5 days. 06/27/24 17:15 Nasal Secretion MRSA (PCR) - Final 06/23/24 16:50 Urine, Catheterized Urine Culture - Final Culture exhibits no growth. 06/24/24 01:20 Mucosa - Nose Respiratory Panel (PCR) - Final Parainfluenza 3 06/23/24 16:50 Urine, Random Legionella Antigen - Final 06/23/24 16:50 Urine, Random Streptococcus pneumoniae Antigen (M - Final Physical Exam Const alert, oriented x3 and no apparent distress Constitutional Narrative: much more alert and communicative today General Appearance: cooperative HEENT normocephalic, head/scalp atraumatic, hearing grossly normal bilaterally, moist oral mucous membranes and oropharynx normal Eyes PERRL, EOMs intact bilaterally and conjunctivae normal Neck no lymphadenopathy, supple and no JVD Lymph Lymphatic: no lymphadenopathy noted and no lymphedema noted Resp Resp Narrative: extubated to oxygen by nasal canula. Diminished breath sounds bibasally, no wheezes or crackles. On room air. Cardio regular rate, S1 normal heart sound, S2 normal heart sound, no murmurs and no rub Cardio Narrative: afib, rate controlled GI GI Narrative: abdomen minimally distended, intact dressing over laparotomy site, mild tenderness, tenderness, guarding or rebound tenderness. Extremity normal to inspection, full ROM, normal capillary refill and no clubbing, cyanosis or edema Extremity Narrative: Decreased lean muscle mass, pedal pulses and radial pulses are 2+. Moves extremities spontaneously General Extremity: no tenderness to palpation of joints or extremities Skin Skin Narrative: P General Skin Exam: no breakdown Neuro oriented x3, CN's II-XII intact bilaterally and moves all extremities Neuro Narrative: frail, moves all limbs spontaneously. Sensorium / Orientation: awake and alert Speech: speech normal Motor Exam: strength 5/5 throughout and general weakness Psych thought process normal Psych Narrative: weak Assessment & Plan Assessment/Plan (1) Infection due to parainfluenza virus 3: (2) Chronic hypoxic respiratory failure: (3) Intractable nausea and vomiting: (4) Small bowel obstruction: PLAN: Plan #Small bowel obstruction * Patient has a history of a partial hysterectomy. She did have small bowel follow-through which still showed no contrast in the colon today showed dilated loops of bowel. * She did have exploratory laparotomy on 06/26/2024 which was converted to open with resection of the small bowel count of distal small bowel obstruction. Today's postop day 3. * Patient transferred to the ICU afterwards as she could not be extubated successfully. Remains intubated and sedated * General Surgery on board. Management as per general surgery. * WBCs has trended down to 14.1 today * started on clear liquid diet today. * #A-fib with RVR * Patient went into A-fib with RVR yesterday. She was initially placed on Cardizem drip but she was still tachycardic so patient was placed on amiodarone drip in addition. * She remains on amiodarone drip and Cardizem drip. She is on therapeutic Lovenox. * Cardiology consulted. TSH within normal limits. * wean off cardizem and amiodarone drip as tolerated. * #Acute on chronic hypoxic respiratory failure * Could not be expected successfully after exploratory laparotomy. Was eventually transferred to the ICU. Was already on oxygen on account of parainfluenza infection * Today's postop day 4. Patient extubated to oxygen by nasal cannula. * Breathing treatment with bronchodilators. Titrate oxygen to maintain saturation above 90%. * Critical care on board. * CT of the chest showed no evidence of PE and showed loculated right-sided and simple left pleural effusion and moderate centrilobular emphysema with cirrhosis and TIPS stent in place. * #Parainfluenza infection: * Management as above. #Hypernatremia: sodium is down to 144 today. #Lactic acidosis: resolved #GERD: on PPI #Chronic thrombocytopenia: * Likely due to cirrhosis and splenomegaly. Will monitor closely. * platelets are up to 120 today. Will monitor * Is s/p TIPS. 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 Nicotine patch as needed DVT prophylaxis:lovenox therapeutic dose o/a of afib. Charges/Coding Visit Charges Inpatient E&M: 43061 Subs Hosp L2
--- NOTE | 2024-06-30 18:02 | PCM.CONS.C ---
Assessment & Plan Assessment/Plan (1) Atrial fibrillation: PLAN: She presents with atrial fibrillation with a rapid ventricular response rate which is likely stress-induced due to her multiple issues currently ongoing. She has been treated with intravenous diltiazem, anticoagulation and intravenous amiodarone. Her rate has improved and I would recommend at this juncture that we try and transition her to oral agents. Her echocardiogram demonstrates reduced ejection fraction and with her history of alcohol and drug use the above may likely be a cardiomyopathy. (2) Cardiomyopathy: PLAN: She will continue with the beta-fili as noted above and we will attempt to add an SHERLEY inhibitor or ARB as appropriate. Thank you for allowing me to participate in the care of your patient. Please don't hesitate to call if any issues arise. HPI Consult Data Date of Consult: 07/01/24 HPI Narrative HPI Narrative: BRET SIMS, is a 63 F whom I am consulted to see on the basis of atrial fibrillation with rapid ventricular response rate. She has a previous history of alcohol abuse polysubstance abuse who was discharged in May from the emergency room in hospital with a right upper lobe pneumonia. She came back to the hospital complaining of left-sided pleuritic chest discomfort, nonbloody diarrhea associated with nausea and vomiting and was noted to have a leukocytosis. She was evaluated in the emergency room was noted to have small bowel obstruction and was being treated aggressively. She has been treated with NG tube suction antibiotics and evaluated by the surgical service. She was transferred to the intensive care unit and were called to see her on the basis of her atrial fibrillation with a rapid ventricular response rate not responding to standard therapy. An echocardiogram was performed with demonstrated ejection fraction of approximately 40%. She was started on intravenous diltiazem and amiodarone. She was given a bolus of intravenous fluids with improvement in her heart rate. At this particular time she has no major complaints other than she is fatigued. [facility] Medical History Shortness of breath Respiratory failure Pneumonia COPD exacerbation Left rotator cuff tear arthropathy Vision problems Neuropathy Breast lump Left shoulder pain Oral candidiasis History of illicit drug use Pleural effusion on right Heroin addiction History of alcoholism Anxiety and depression History of hepatitis C Tobacco dependence due to cigarettes Vitamin D deficiency Thrombocytopenia Degenerative arthritis Restless legs Injury of head and neck Fall at home Closed subcapital fracture of neck of right femur Cirrhosis of liver Impetigo Cystitis Back pain Hyperlipidemia Seasonal allergies Atopic dermatitis H pylori ulcer COPD (chronic obstructive pulmonary disease) Home Medications ?Medication ?Instructions ?Recorded ?Last Taken ?Type pantoprazole 40 mg tablet,delayed 40 mg PO DAILY 06/30/22 Unknown History release (Protonix) albuterol sulfate 90 mcg/actuation 2 inh inhalation Q6H PRN shortness 07/07/22 06/13/24 Rx breath activated powder inhaler of breath or wheezing #1 ea ondansetron 4 mg disintegrating 4 mg translingual Q8H PRN nausea 08/03/22 Unknown History tablet and vomiting albuterol sulfate 2.5 mg/3 mL 2.5 mg inhalation UD 06/14/24 06/13/24 History (0.083 %) solution for nebulization budesonide-formoterol HFA 160 2 puff inhalation Q12H 06/14/24 06/13/24 History mcg-4.5 mcg/actuation aerosol inhaler (Symbicort) gabapentin 600 mg tablet 600 mg PO QHS PRN pain 06/14/24 06/13/24 History lactulose 10 gram/15 mL oral 10 g PO TID PRN constipation 06/14/24 Unknown History solution (Constulose) mupirocin 2 % topical ointment 1 applic topical TID PRN skin 06/14/24 Unknown History irritation oxycodone-acetaminophen 5 mg-325 1 tab PO BID PRN pain 06/14/24 06/14/24 History mg tablet nicotine 21 mg/24 hr daily 21 mg transdermal DAILY #30 ea 06/21/24 Unknown Rx transdermal patch prednisone 20 mg tablet 40 mg (2 x 20 mg) PO DAILY #10 tabs 06/21/24 Unknown Rx Allergy/AdvReac Type Severity Reaction Status Date / Time trazodone Allergy Mild leg cramps Verified 06/23/24 16:08 naproxen (From Naprosyn) AdvReac Upset Verified 06/23/24 16:08 Stomach tramadol AdvReac Itching Verified 06/23/24 16:08 Family History Mother FH: mental illness HLD (hyperlipidemia) Thyroid disorder Aunt No problems noted. Grandmother Heart disease Myocardial infarction Aunt Diabetes HLD (hyperlipidemia) Hypertension Grandfather COPD (chronic obstructive pulmonary disease) Sister Skin cancer Other Anxiety Arthritis Surgical History S/P TIPS (transjugular intrahepatic portosystemic shunt) History of breast biopsy History of D&C History of open reduction and internal fixation (ORIF) procedure Cervical vertebral fusion History of back surgery S/P shoulder surgery H/O colonoscopy History of esophagogastroduodenoscopy (EGD) H/O: hysterectomy S/P cholecystectomy History of back surgery Status post lumbar surgery Social History adopted: No household members: other details: Her granddaughter lives with her (17 years old). She has custody X 11 year housing: apartment number of children: 3 current occupational status: unemployed Smoking Status: Former smoker Tobacco: How many years used: 32 Electronic Cigarette Use: not used how long ago did patient quit smoking: started smoking at age 28 and smoked 1/2- 1.5 PPD....she is still smoking alcohol intake: former substance use type: former substance user do you feel safe at home: Yes Risk Stratification Risk Stratification Applicable: No Objective Data Vital Signs: Vital Signs Temp Pulse Resp BP Pulse Ox O2 Del Method O2 Flow Rate 98.7 F 83 18 116/74 94 Room Air 2 06/30/24 16:00 06/30/24 16:00 06/30/24 16:00 06/30/24 16:00 06/30/24 16:00 06/30/24 16:00 06/30/24 00:00 FiO2 2 06/30/24 01:00 Oxygen Flow Rate (L/min) 2 Oxygen Delivery Method Room Air Weight: 158 lb 11.725 oz Body Mass Index (BMI) 24.1 Intake & Output: Intake and Output for Last 24 Hours 06/28/24 06/29/24 06/30/24 23:59 23:59 23:59 Intake Total 814.91 / 814.91 1465.75 / 1480.75 2236.20 / 2236.20 Output Total 825 / 825 750 / 750 1025 / 1025 Balance -10.09 / -10.09 715.75 / 730.75 1211.20 / 1211.20 Lab / Micro Data 07/01/24 03:10 07/01/24 03:10 Labs: Laboratory Results - last 24 hr 06/30/24 06:25: WBC 14.1 H, RBC 3.10 L, Hgb 10.3 L, Hct 30.6 L, MCV 98.7, MCH 33.2 H, MCHC 33.7, RDW Std Deviation 57.5 H, RDW Coeff of Heath 16.7 H, Plt Count 120 L, MPV 10.4, Immature Gran % (Auto) 0.900, Neut % (Auto) 83.5 H, Lymph % (Auto) 6.5 L, [place] % (Auto) 8.7, Eos % (Auto) 0.1, Baso % (Auto) 0.3, Absolute Neuts (auto) 11.7 H, Absolute Lymphs (auto) 0.92, Nucleated RBC % 0.2, Sodium 144, Potassium 4.2, Chloride 117 H, Carbon Dioxide 24.0, Anion Gap 3 L, BUN 31 H, Creatinine 0.40 L, Estim Creat Clear Calc 147.10, Est GFR (MDRD) Af Amer 209, Est GFR (MDRD) Non-Af 173, BUN/Creatinine Ratio 78.1 H, Glucose 131 H, Calcium 8.1 L Micro: Microbiology 06/27/24 14:00 Blood Culture (Wb) - Other Blood Culture - Preliminary 06/27/24 21:00 Urine Catheter - Serrato Urine Culture - Final Culture exhibits no growth. Cardiology Labs/Tests 06/30/24 06:25: WBC 14.1 H, RBC 3.10 L, Hgb 10.3 L, Hct 30.6 L, MCV 98.7, MCH 33.2 H, MCHC 33.7, Plt Count 120 L, MPV 10.4, Immature Gran % (Auto) 0.900, Neut % (Auto) 83.5 H, Lymph % (Auto) 6.5 L, [place] % (Auto) 8.7, Eos % (Auto) 0.1, Baso % (Auto) 0.3, Absolute Neuts (auto) 11.7 H, Nucleated RBC % 0.2, Sodium 144, Potassium 4.2, Chloride 117 H, Carbon Dioxide 24.0, Anion Gap 3 L, BUN 31 H, Creatinine 0.40 L, Est GFR (MDRD) Af Amer 209, Est GFR (MDRD) Non-Af 173, BUN/Creatinine Ratio 78.1 H, Glucose 131 H, Calcium 8.1 L Rhythm: EKG: ECHO: Stress Test: Cardiac Cath: PCI: CT Surgery: Holter monitor: EPS: PPM: CXR: Chest CT Scan:
[2024-06-30] MEDS: Metoprolol Tartrate 25 MG Tablet PO (22:30)
[2024-06-30] MEDS: guaiFENesin 1,200 MG Tablet 1200 MG PO (22:30)
[2024-07-01] VITALS (29 sets, daily range): BP systolic 65–119; BP diastolic 21–77; PULSE 60–119; RESP 12–58; TEMP 36.9–37.6; O2SAT 93–98; BMI 25.0
[2024-07-01 03:23] LABS: Absolute Lymphocyte Count 0.72 X10^3/uL (0.83-4.51); Absolute Neutrophil Count 15.8 X10^3/uL (2.0-7.7); Basophil# 0.05 X10^3/uL; Basophil% 0.2 % (0-1); Eosinophil# 1.75 X10^3/uL; Eosinophils% 8.7 % (0-5); Hematocrit 32.3 % (37-47); Hemoglobin 10.7 g/dL (12.0-15.0); Lymphocyte # 0.72 X10^3/ul (0.83-4.51); Lymphocyte % 3.6 % (19-41); Mean Corp Hgb Conc 33.1 g/dL (32-36); Mean Corpuscular Hgb 32.5 pg (27.0-32.0); Mean Corpuscular Volume 98.2 fL (81-99); Mean Platelet Vol. 10.6 fl (6.2-12.0); Monocyte# 1.63 X10^3/uL; Monocyte% 8.1 % (0-10); NRBC Flagged by Analyzer 0.1 % (0-5); Neutrophil # 15.78 X10^3/uL (2.7-7.7); Neutrophil % 78.3 % (47-70); POSITIVE DIFFERENTIAL YES; POSITIVE MORPHOLOGY YES; Platelet Count 125 K/mm3 (150-450); RBC Distribution Width CV 16.8 % (11.6-14.6); RBC Distribution Width SD 58.8 fl (35.1-43.9); Red Blood Count 3.29 M/mm3 (4.2-5.4); White Blood Count 20.2 K/mm3 (4.4-11.0)
[2024-07-01 03:25] LABS: Differential Indicated SCAN CRITERIA MET
[2024-07-01 03:33] LABS: Vancomycin, Trough Level 20.4 ug/mL (5.0-15.0)
[2024-07-01 03:41] LABS: Anion Gap 6 (5-15); BUN 31 mg/dL (7-18); BUN/Creat Ratio 48.1 RATIO (10-20); Chloride 115 mmol/L (98-107); Creatinine, Serum 0.64 mg/dL (0.55-1.02); EST Glomerular Filtration Rate 99 mL/min (>60); Est Glom Filt Rate - Afr Amer 120 mL/min (>60); Estimated Creatinine Clearance 91.94 ml/min; Glucose 111 mg/dL (74-106); Potassium 4.2 mmol/L (3.5-5.1); Sodium Level 144 mmol/L (136-145)
--- NOTE | 2024-07-01 03:47 | PCM.RX.CS ---
Consult Antibiotic Management Pharmacy has been consulted to manage selected antibiotic: Vancomycin Type of Intervention Type of Consult: Follow-up Labs Labs: Sodium 144 mmol/L (136-145) 07/01/24 03:10 Potassium 4.2 mmol/L (3.5-5.1) 07/01/24 03:10 Chloride 115 mmol/L (98-107) H 07/01/24 03:10 Carbon Dioxide 24.0 mmol/L (21.0-32.0) 07/01/24 03:10 Anion Gap 6 (5-15) 07/01/24 03:10 BUN 31 mg/dL (7-18) H 07/01/24 03:10 Creatinine 0.64 mg/dL (0.55-1.02) 07/01/24 03:10 Est GFR (MDRD) Af Amer 120 mL/min (>60) 07/01/24 03:10 Est GFR (MDRD) Non-Af 99 mL/min (>60) 07/01/24 03:10 BUN/Creatinine Ratio 48.1 RATIO (10-20) H 07/01/24 03:10 Glucose 111 mg/dL (74-106) H 07/01/24 03:10 Vancomycin Trough 20.4 ug/mL (5.0-15.0) H 07/01/24 03:10 Microbiology Microbiology: Microbiology 06/27/24 14:00 Blood Culture (Wb) - Other Blood Culture - Preliminary 06/27/24 21:00 Urine Catheter - Serrato Urine Culture - Final Culture exhibits no growth. 06/26/24 14:55 Sputum, Induced/Lukens Gram Stain - Final 06/26/24 14:55 Sputum, Induced/Lukens Respiratory Culture - Final Escherichia coli Presumptive C albicans 06/23/24 17:49 Blood Culture (Wb) - Arm Left Blood Culture - Final No growth in 5 days. 06/23/24 17:05 Blood Culture (Wb) - Right Wrist Blood Culture - Final No growth in 5 days. 06/27/24 17:15 Nasal Secretion MRSA (PCR) - Final 06/23/24 16:50 Urine, Catheterized Urine Culture - Final Culture exhibits no growth. 06/24/24 01:20 Mucosa - Nose Respiratory Panel (PCR) - Final Parainfluenza 3 06/23/24 16:50 Urine, Random Legionella Antigen - Final 06/23/24 16:50 Urine, Random Streptococcus pneumoniae Antigen (M - Final Goal Trough Goal Trough: 15-20 mcg/mL Pharmacy Plan for Drug Dosing Pharmacy Plan for Drug Dosing: Pharmacy Service will continue to monitor and adjust dosing as required. TROUGH 20.4 @ 14 HOURS. HOLD DOSE AND DRAW RANDOM LEVEL IN 8 HOURS Follow-Up Labs Follow-Up Labs: Trough: Vancomycin Date/Time Labs Ordered Labs to be done on [date and time ordered]: 07/01 @ 9572
[2024-07-01 03:52] LABS: Differential Comment SCANNED
[2024-07-01] MEDS: Piperacil/Tazobactam 3.375 GM in 0.9% Normal Saline (50mL MB+) 50 ML IV ×3 (05:49→22:48)
[2024-07-01] MEDS: Morphine 2 MG/ML Syringe IV ×2 (05:49→15:14)
[2024-07-01] MEDS: Vancomycin Trough/Random Due 1 LAB MC (05:51)
[2024-07-01] MEDS: Enoxaparin 80 MG/0.8 ML Syringe 70 MG SC (09:40)
[2024-07-01] MEDS: Metoprolol Tartrate 25 MG Tablet PO (09:53)
[2024-07-01] MEDS: Pantoprazole Sodium 40 MG in 0.9% Normal Saline (100mL MB+) 100 ML 330 MG IV (09:54)
[2024-07-01 10:03] LABS: Vancomycin, Random Level 16.8 ug/mL (0.0-15.0)
--- NOTE | 2024-07-01 10:03 | PCM.PN.CARD ---
Subjective Subjective Patient seen and evaluated. Doing better Objective Data Vital Signs: Vital Signs Temp Pulse Resp BP Pulse Ox O2 Del Method O2 Flow Rate 98.8 F 87 19 H 114/62 93 Room Air 2 07/01/24 06:00 07/01/24 09:53 07/01/24 06:00 07/01/24 06:00 07/01/24 06:00 07/01/24 06:00 06/30/24 00:00 FiO2 2 06/30/24 01:00 Oxygen Flow Rate (L/min) 2 Oxygen Delivery Method Room Air Weight: 164 lb 10.965 oz Body Mass Index (BMI) 25.0 Intake & Output: Intake and Output for Last 24 Hours 06/29/24 06/30/24 07/01/24 23:59 23:59 23:59 Intake Total 1465.75 / 1480.75 2316.70 / 2316.70 250 / 250 Output Total 750 / 750 1025 / 1025 Balance 715.75 / 730.75 1291.70 / 1291.70 250 / 250 Lab / Micro Data 07/01/24 03:10 07/01/24 03:10 Labs: Laboratory Results - last 24 hr 07/01/24 03:10: WBC 20.2 H, RBC 3.29 L, Hgb 10.7 L, Hct 32.3 L, MCV 98.2, MCH 32.5 H, MCHC 33.1, RDW Std Deviation 58.8 H, RDW Coeff of Heath 16.8 H, Plt Count 125 L, MPV 10.6, Immature Gran % (Auto) 1.100 H, Neut % (Auto) 78.3 H, Lymph % (Auto) 3.6 L, [place] % (Auto) 8.1, Eos % (Auto) 8.7 H, Baso % (Auto) 0.2, Absolute Neuts (auto) 15.8 H, Absolute Lymphs (auto) 0.72 L, Nucleated RBC % 0.1, Differential Comment SCANNED, Diff Path Review September, Sodium 144, Potassium 4.2, Chloride 115 H, Carbon Dioxide 24.0, Anion Gap 6, BUN 31 H, Creatinine 0.64, Estim Creat Clear Calc 91.94, Est GFR (MDRD) Af Amer 120, Est GFR (MDRD) Non-Af 99, BUN/Creatinine Ratio 48.1 H, Glucose 111 H, Calcium 8.0 L, Vancomycin Trough 20.4 H 07/01/24 09:15: Random Vancomycin 16.8 H Micro: Microbiology 06/27/24 14:00 Blood Culture (Wb) - Other Blood Culture - Preliminary Yeast, not Myranda albicans 06/27/24 21:00 Urine Catheter - Serrato Urine Culture - Final Culture exhibits no growth. Cardiology Labs/Tests 07/01/24 03:10: WBC 20.2 H, RBC 3.29 L, Hgb 10.7 L, Hct 32.3 L, MCV 98.2, MCH 32.5 H, MCHC 33.1, Plt Count 125 L, MPV 10.6, Immature Gran % (Auto) 1.100 H, Neut % (Auto) 78.3 H, Lymph % (Auto) 3.6 L, [place] % (Auto) 8.1, Eos % (Auto) 8.7 H, Baso % (Auto) 0.2, Absolute Neuts (auto) 15.8 H, Nucleated RBC % 0.1, Sodium 144, Potassium 4.2, Chloride 115 H, Carbon Dioxide 24.0, Anion Gap 6, BUN 31 H, Creatinine 0.64, Est GFR (MDRD) Af Amer 120, Est GFR (MDRD) Non-Af 99, BUN/Creatinine Ratio 48.1 H, Glucose 111 H, Calcium 8.0 L Rhythm: EKG: ECHO: Stress Test: Cardiac Cath: PCI: CT Surgery: Holter monitor: EPS: PPM: CXR: Chest CT Scan: Physical Exam Const alert, oriented x3 and no apparent distress Constitutional Narrative: much more alert and communicative today General Appearance: cooperative HEENT normocephalic, head/scalp atraumatic, hearing grossly normal bilaterally, moist oral mucous membranes and oropharynx normal Eyes PERRL, EOMs intact bilaterally and conjunctivae normal Neck no lymphadenopathy, supple and no JVD Lymph Lymphatic: no lymphadenopathy noted and no lymphedema noted Resp Resp Narrative: extubated to oxygen by nasal canula. Diminished breath sounds bibasally, no wheezes or crackles. On room air. Cardio regular rate, S1 normal heart sound, S2 normal heart sound, no murmurs and no rub Cardio Narrative: afib, rate controlled GI GI Narrative: abdomen minimally distended, intact dressing over laparotomy site, mild tenderness, tenderness, guarding or rebound tenderness. Extremity normal to inspection, full ROM, normal capillary refill and no clubbing, cyanosis or edema Extremity Narrative: Decreased lean muscle mass, pedal pulses and radial pulses are 2+. Moves extremities spontaneously General Extremity: no tenderness to palpation of joints or extremities Skin Skin Narrative: P General Skin Exam: no breakdown Neuro oriented x3, CN's II-XII intact bilaterally and moves all extremities Neuro Narrative: frail, moves all limbs spontaneously. Sensorium / Orientation: awake and alert Speech: speech normal Motor Exam: strength 5/5 throughout and general weakness Psych thought process normal Psych Narrative: weak Assessment & Plan Assessment/Plan (1) Atrial fibrillation: PLAN: She presents with atrial fibrillation with a rapid ventricular response rate which is likely stress-induced due to her multiple issues currently ongoing. She has been treated with intravenous diltiazem, anticoagulation and intravenous amiodarone. Her rate has improved and I would recommend at this juncture that we try and transition her to oral agents. Her echocardiogram demonstrates reduced ejection fraction and with her history of alcohol and drug use the above may likely be a cardiomyopathy. (2) Cardiomyopathy: PLAN: She will continue with the beta-fili as noted above and we will attempt to add an SHERLEY inhibitor or ARB as appropriate. Thank you for allowing me to participate in the care of your patient. Please don't hesitate to call if any issues arise.
--- NOTE | 2024-07-01 10:22 | PCM.RX.CS ---
Consult Antibiotic Management Pharmacy has been consulted to manage selected antibiotic: Vancomycin Type of Intervention Type of Consult: Follow-up Suspected Infection Suspected Infection: Sepsis and Pneumonia Labs Labs: Sodium 144 mmol/L (136-145) 07/01/24 03:10 Potassium 4.2 mmol/L (3.5-5.1) 07/01/24 03:10 Chloride 115 mmol/L (98-107) H 07/01/24 03:10 Carbon Dioxide 24.0 mmol/L (21.0-32.0) 07/01/24 03:10 Anion Gap 6 (5-15) 07/01/24 03:10 BUN 31 mg/dL (7-18) H 07/01/24 03:10 Creatinine 0.64 mg/dL (0.55-1.02) 07/01/24 03:10 Est GFR (MDRD) Af Amer 120 mL/min (>60) 07/01/24 03:10 Est GFR (MDRD) Non-Af 99 mL/min (>60) 07/01/24 03:10 BUN/Creatinine Ratio 48.1 RATIO (10-20) H 07/01/24 03:10 Glucose 111 mg/dL (74-106) H 07/01/24 03:10 Vancomycin Trough 20.4 ug/mL (5.0-15.0) H 07/01/24 03:10 Random Vancomycin 16.8 ug/mL (0.0-15.0) H 07/01/24 09:15 Microbiology Microbiology: Microbiology 06/27/24 14:00 Blood Culture (Wb) - Other Blood Culture - Preliminary Yeast, not Myranda albicans 06/27/24 21:00 Urine Catheter - Serrato Urine Culture - Final Culture exhibits no growth. 06/26/24 14:55 Sputum, Induced/Lukens Gram Stain - Final 06/26/24 14:55 Sputum, Induced/Lukens Respiratory Culture - Final Escherichia coli Presumptive C albicans 06/23/24 17:49 Blood Culture (Wb) - Arm Left Blood Culture - Final No growth in 5 days. 06/23/24 17:05 Blood Culture (Wb) - Right Wrist Blood Culture - Final No growth in 5 days. 06/27/24 17:15 Nasal Secretion MRSA (PCR) - Final 06/23/24 16:50 Urine, Catheterized Urine Culture - Final Culture exhibits no growth. 06/24/24 01:20 Mucosa - Nose Respiratory Panel (PCR) - Final Parainfluenza 3 06/23/24 16:50 Urine, Random Legionella Antigen - Final 06/23/24 16:50 Urine, Random Streptococcus pneumoniae Antigen (M - Final Goal Trough Goal Trough: 15-20 mcg/mL Pharmacy Plan for Drug Dosing Pharmacy Plan for Drug Dosing: VANCOMYCIN LEVEL RECEIVED Current Vancomycin Dose: current dose on hold due to elevated trough Number of Doses Received: previous dose was 1000mg last given 06/30 at 1400 Vancomycin Level: random level resulted at 16.8 Hours Since Last Dose: 19 hours since last 1000mg dose Renal Function: SrCr 0.64 Renal Function Trend: SrCr increasing Lab/Micro: Vancomycin Plan/Comments: recommend re-starting vancomycin at 1500mg q24h. this will hopefully allow more time for the patient to clear the medication. trough prior to the 3rd dose Pending Level: 07/03/24 at 1030 Pharmacy Service will continue to monitor and adjust dosing as required. Follow-Up Labs Follow-Up Labs: Trough: Vancomycin (07/03/24 at 1030)
--- NOTE | 2024-07-01 11:09 | PCM.PN.SRG ---
Subjective Subjective Patient seen and examined during AM rounds. She is found sitting at the edge of the bed. Nursing shares that they were unable to get patient all the way to the chair due to patient's reluctance in the physical demand put on by patient's weakness. Mrs. Garcia appears tearful complaining of pain in her rectum. She is tolerating a liquid diet without nausea but denies any bowel movements. She has continued to pass some gas. She states that she does have some abdominal pain throughout her abdomen. She also is bothered by her diffuse swelling. Objective Data Objective Data Vital Signs: Vital Signs Temp Pulse Resp BP Pulse Ox O2 Del Method O2 Flow Rate 98.8 F 87 19 H 114/62 93 Room Air 2 07/01/24 06:00 07/01/24 09:53 07/01/24 06:00 07/01/24 06:00 07/01/24 06:00 07/01/24 06:00 06/30/24 00:00 FiO2 2 06/30/24 01:00 Oxygen Flow Rate (L/min) 2 Oxygen Delivery Method Room Air Weight: 164 lb 10.965 oz Body Mass Index (BMI) 25.0 Intake & Output: Intake and Output for Last 24 Hours 06/29/24 06/30/24 07/01/24 23:59 23:59 23:59 Intake Total 1465.75 / 1480.75 2316.70 / 2316.70 530 / 530 Output Total 750 / 750 1025 / 1025 50 / 50 Balance 715.75 / 730.75 1291.70 / 1291.70 480 / 480 Lab / Micro Data 07/01/24 03:10 07/01/24 03:10 Labs: Laboratory Results - last 24 hr 07/01/24 03:10: WBC 20.2 H, RBC 3.29 L, Hgb 10.7 L, Hct 32.3 L, MCV 98.2, MCH 32.5 H, MCHC 33.1, RDW Std Deviation 58.8 H, RDW Coeff of Heath 16.8 H, Plt Count 125 L, MPV 10.6, Immature Gran % (Auto) 1.100 H, Neut % (Auto) 78.3 H, Lymph % (Auto) 3.6 L, [place] % (Auto) 8.1, Eos % (Auto) 8.7 H, Baso % (Auto) 0.2, Absolute Neuts (auto) 15.8 H, Absolute Lymphs (auto) 0.72 L, Nucleated RBC % 0.1, Differential Comment SCANNED, Diff Path Review September, Sodium 144, Potassium 4.2, Chloride 115 H, Carbon Dioxide 24.0, Anion Gap 6, BUN 31 H, Creatinine 0.64, Estim Creat Clear Calc 91.94, Est GFR (MDRD) Af Amer 120, Est GFR (MDRD) Non-Af 99, BUN/Creatinine Ratio 48.1 H, Glucose 111 H, Calcium 8.0 L, Vancomycin Trough 20.4 H 07/01/24 09:15: Random Vancomycin 16.8 H Micro: Microbiology 06/27/24 14:00 Blood Culture (Wb) - Other Blood Culture - Preliminary Yeast, not Myranda albicans 06/27/24 21:00 Urine Catheter - Serrato Urine Culture - Final Culture exhibits no growth. 06/26/24 14:55 Sputum, Induced/Lukens Gram Stain - Final 06/26/24 14:55 Sputum, Induced/Lukens Respiratory Culture - Final Escherichia coli Presumptive C albicans 06/23/24 17:49 Blood Culture (Wb) - Arm Left Blood Culture - Final No growth in 5 days. 06/23/24 17:05 Blood Culture (Wb) - Right Wrist Blood Culture - Final No growth in 5 days. 06/27/24 17:15 Nasal Secretion MRSA (PCR) - Final 06/23/24 16:50 Urine, Catheterized Urine Culture - Final Culture exhibits no growth. 06/24/24 01:20 Mucosa - Nose Respiratory Panel (PCR) - Final Parainfluenza 3 06/23/24 16:50 Urine, Random Legionella Antigen - Final 06/23/24 16:50 Urine, Random Streptococcus pneumoniae Antigen (M - Final Physical Exam Const oriented x3 Constitutional Narrative: Patient appears depressed and overwhelmed Resp Resp Narrative: Mildly tachypneic GI GI Narrative: Anasarca, silver dressing is taken down from patient's operation and incision appears well-approximated with skin jessica. There is a scant amount of crusted blood adherent to the patient's midline wound. There is no leakage of ascites or drainage from the wound otherwise. Patient describes tenderness with palpation to all 4 quadrants. Patient's anus is examined given her complaints of perirectal discomfort. This area is unremarkable to inspection and there is some tenderness around the anal opening but patient is reluctant to allow any further exam. Significantly I find no evidence of fluctuance or bleeding. Assessment & Plan Assessment/Plan (1) Small bowel obstruction: PLAN: Patient is postoperative day 5 from ex lap with small bowel resection and reanastomosis due to bleeding. She was started on a clear liquid diet yesterday. While she reports ongoing flatus she is yet to have a bowel movement. She is distended today and complains of abdominal tenderness with palpation. Therefore, I do not believe we can advance her diet as yet. This is concerning as it appears patient is well over a week since she has had substantial nutrition. We may need to look into initiation of TPN in the coming days. Her wound is appropriate after dressings are taken down. It is noted that patient has experienced a worsening of her leukocytosis since yesterday despite remaining on broad-spectrum antimicrobials and stable steroid dosing. Source is unclear at this point. Discussed with hospitalist service that we may continue to monitor through today but if it persist through tomorrow or worsens again then we may have to explore panculturing/repeat imaging. Agree with measures to try to mobilize patient as tolerated. Gera Rivas MD General Surgery Endocrine Surgery Pager: [facility] [address] [place] [address], [address] [place] [address] Office: [phone] Charges/Coding Visit Charges Inpatient E&M: 83078 Subs Hosp L2
[2024-07-01] MEDS: Vancomycin HCl 1,500 MG in 0.9% Normal Saline (500mL Bag) 500 ML 250 MG IV (11:16)
--- NOTE | 2024-07-01 13:07 | CPS ---
Offered patient her breathing treatment at this time. Patient continues to refuse despite encouragement from this RT.
--- NOTE | 2024-07-01 13:19 | PN_ITS ---
Subjective Subjective Patient seen and examined. She had no active complaints. She has remained hemodynamically stable. Her white cell count has trended upwards today to 20 today. She denies any fever, chills, palpitations, nausea vomiting or any other symptoms. Objective Data Objective Data Vital Signs: Vital Signs Temp Pulse Resp BP Pulse Ox O2 Del Method O2 Flow Rate 98.9 F 67 16 119/61 93 Room Air 2 07/01/24 12:00 07/01/24 12:00 07/01/24 12:00 07/01/24 12:00 07/01/24 12:00 07/01/24 12:00 06/30/24 00:00 FiO2 2 06/30/24 01:00 Oxygen Flow Rate (L/min) 2 Oxygen Delivery Method Room Air Weight: 164 lb 10.965 oz Body Mass Index (BMI) 25.0 Intake & Output: Intake and Output for Last 24 Hours 06/29/24 06/30/24 07/01/24 23:59 23:59 23:59 Intake Total 1465.75 / 1480.75 2316.70 / 2316.70 530 / 530 Output Total 750 / 750 1025 / 1025 50 / 50 Balance 715.75 / 730.75 1291.70 / 1291.70 480 / 480 Lab / Micro Data 07/01/24 03:10 07/01/24 03:10 Labs: Laboratory Results - last 24 hr 07/01/24 03:10: WBC 20.2 H, RBC 3.29 L, Hgb 10.7 L, Hct 32.3 L, MCV 98.2, MCH 32.5 H, MCHC 33.1, RDW Std Deviation 58.8 H, RDW Coeff of Heath 16.8 H, Plt Count 125 L, MPV 10.6, Immature Gran % (Auto) 1.100 H, Neut % (Auto) 78.3 H, Lymph % (Auto) 3.6 L, [place] % (Auto) 8.1, Eos % (Auto) 8.7 H, Baso % (Auto) 0.2, Absolute Neuts (auto) 15.8 H, Absolute Lymphs (auto) 0.72 L, Nucleated RBC % 0.1, Differential Comment SCANNED, Diff Path Review September, Sodium 144, Potassium 4.2, Chloride 115 H, Carbon Dioxide 24.0, Anion Gap 6, BUN 31 H, Creatinine 0.64, Estim Creat Clear Calc 91.94, Est GFR (MDRD) Af Amer 120, Est GFR (MDRD) Non-Af 99, BUN/Creatinine Ratio 48.1 H, Glucose 111 H, Calcium 8.0 L, Vancomycin Trough 20.4 H 07/01/24 09:15: Random Vancomycin 16.8 H Micro: Microbiology 06/27/24 14:00 Blood Culture (Wb) - Other Blood Culture - Preliminary Yeast, not Myranda albicans 06/27/24 21:00 Urine Catheter - Serrato Urine Culture - Final Culture exhibits no growth. 06/26/24 14:55 Sputum, Induced/Lukens Gram Stain - Final 06/26/24 14:55 Sputum, Induced/Lukens Respiratory Culture - Final Escherichia coli Presumptive C albicans 06/23/24 17:49 Blood Culture (Wb) - Arm Left Blood Culture - Final No growth in 5 days. 06/23/24 17:05 Blood Culture (Wb) - Right Wrist Blood Culture - Final No growth in 5 days. 06/27/24 17:15 Nasal Secretion MRSA (PCR) - Final 06/23/24 16:50 Urine, Catheterized Urine Culture - Final Culture exhibits no growth. 06/24/24 01:20 Mucosa - Nose Respiratory Panel (PCR) - Final Parainfluenza 3 06/23/24 16:50 Urine, Random Legionella Antigen - Final 06/23/24 16:50 Urine, Random Streptococcus pneumoniae Antigen (M - Final Physical Exam Const alert, oriented x3 and no apparent distress Constitutional Narrative: Looks much older than stated age. General Appearance: cooperative HEENT normocephalic, head/scalp atraumatic, hearing grossly normal bilaterally, moist oral mucous membranes and oropharynx normal Eyes PERRL, EOMs intact bilaterally and conjunctivae normal Neck no lymphadenopathy, supple and no JVD Lymph Lymphatic: no lymphadenopathy noted and no lymphedema noted Resp normal respiratory effort, no retractions and no use of accessory muscles Resp Narrative: Diminished breath sounds bibasally, no wheezes or crackles. On room air. Auscultation: crackles Cardio regular rate, regular rhythm, S1 normal heart sound, S2 normal heart sound, no murmurs, no rub, no gallops and no clicks Cardio Narrative: afib, rate controlled GI GI Narrative: abdomen minimally distended, intact dressing over laparotomy site, mild tenderness,no guarding or rebound tenderness Extremity normal to inspection, full ROM, normal capillary refill, no clubbing, cyanosis or edema and no calf tenderness General Extremity: no tenderness to palpation of joints or extremities Skin General Skin Exam: no breakdown Neuro oriented x3, CN's II-XII intact bilaterally and moves all extremities Neuro Narrative: frail, moves all limbs spontaneously. Sensorium / Orientation: awake, alert, oriented to person, oriented to place and oriented to time Speech: speech normal Motor Exam: strength 5/5 throughout and general weakness Psych thought process normal, cooperative and affect normal Psych Narrative: weak Appearance: appropriate Assessment & Plan Assessment/Plan (1) Infection due to parainfluenza virus 3: (2) Chronic hypoxic respiratory failure: (3) Intractable nausea and vomiting: (4) Small bowel obstruction: PLAN: Plan #Small bowel obstruction * Patient has a history of a partial hysterectomy. She did have small bowel follow-through which still showed no contrast in the colon today showed dilated loops of bowel. * She did have exploratory laparotomy on 06/26/2024 which was converted to open with resection of the small bowel count of distal small bowel obstruction. Today's postop day 5. * Patient transferred to the ICU afterwards as she could not be extubated successfully. Remains intubated and sedated * General Surgery on board. Management as per general surgery. * WBC has trended up to 20 from 14 yesterday. It is unclear why as she does not have any fever or chills and denies any cough or any urinary symptoms. Per discussion with general surgery to monitor to see if it comes down. If it does not trend downwards to further workup with blood and urine cultures. * started on clear liquid diet today. advnce diet as per general surgery * #A-fib * Patient went into A-fib so she was initially placed on Cardizem drip but she was still tachycardic so patient was placed on amiodarone drip in addition. * She remains on amiodarone drip and Cardizem drip. She is on therapeutic Lovenox. * Cardiology on board. Per cardiology to place on oral beta-fili to will attempt to add an SHERLEY inhibitor or ARB as appropriate for cardiomyopathy. * 2D echo showed EF of 40% with mild global left ventricular hypokinesis. * TSH within normal limits. * * #Acute on chronic hypoxic respiratory failure * Could not be expected successfully after exploratory laparotomy. Was eventually transferred to the ICU. Was already on oxygen on account of parainfluenza infection * Today's postop day 5. * Breathing treatment with bronchodilators. Titrate oxygen to maintain saturation above 90%. * Critical care on board. * CT of the chest showed no evidence of PE and showed loculated right-sided and simple left pleural effusion and moderate centrilobular emphysema with cirrhosis and TIPS stent in place. * #Parainfluenza infection: * Management as above. #Hypernatremia: resolved. Sodium remains 144. #Lactic acidosis: resolved #GERD: on PPI #Chronic thrombocytopenia: * Likely due to cirrhosis and splenomegaly. Will monitor closely. * platelets are 125 today. * Is s/p TIPS. 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 Nicotine patch as needed DVT prophylaxis:lovenox therapeutic dose o/a of afib. Charges/Coding Visit Charges Inpatient E&M: 24059 Subs Hosp L2
--- NOTE | 2024-07-01 13:34 | DS.PCM_ITS ---
Providers Date of Admission: 06/23/24 Primary Care Physician: Dr. Roslyn Amaral, Consultations 06/24/24 02:18 Consult: General Surgery Routine Consulting Provider: Shakir Fritz Reason for Consult: Possible SBO EMERGENT Consult: No Notified: Yes Date Notified: 06/24/24 Time Notified: 08:00 Method of Notification: Verbal 06/26/24 14:40 Consult: Cardiopulmonary Supervisor / Pulmonary Medicine Routine Consulting Provider: Intensivists/Pulmonary Med Reason for Consult: acute hypoxic resp failure, unable to extubate after surgery EMERGENT Consult: No Notified: Yes Date Notified: 06/26/24 Time Notified: 14:40 Method of Notification: Text 06/29/24 19:29 Consult: Cardiology Routine Consulting Provider: Kashif Noe Reason for Consult: afib rvr EMERGENT Consult: No Notified: Yes Date Notified: 06/29/24 Time Notified: 19:29 Method of Notification: Text Reason For Visit: RLL PNA, AE COPD, RESPIRATORY INSUFFICIENCY AND Diagnosis Discharge Diagnosis (1) Infection due to parainfluenza virus 3: Status: Acute Code(s): B34.8 - Other viral infections of unspecified site (2) Chronic hypoxic respiratory failure: Status: Chronic Code(s): J96.11 - Chronic respiratory failure with hypoxia (3) Intractable nausea and vomiting: Status: Acute Code(s): R11.2 - Nausea with vomiting, unspecified (4) Small bowel obstruction: Status: Acute Code(s): K56.609 - Unspecified intestinal obstruction, unspecified as to partial versus complete obstruction Plan #Small bowel obstruction * Patient has a history of a partial hysterectomy. She did have small bowel follow-through which still showed no contrast in the colon today showed dilated loops of bowel. * She did have exploratory laparotomy on 06/26/2024 which was converted to open with resection of the small bowel count of distal small bowel obstruction. Today's postop day 5. * Patient transferred to the ICU afterwards as she could not be extubated successfully. Remains intubated and sedated * General Surgery on board. Management as per general surgery. * WBC has trended up to 20 from 14 yesterday. It is unclear why as she does not have any fever or chills and denies any cough or any urinary symptoms. Per discussion with general surgery to monitor to see if it comes down. If it does not trend downwards to further workup with blood and urine cultures. * started on clear liquid diet today. advnce diet as per general surgery * #A-fib * Patient went into A-fib so she was initially placed on Cardizem drip but she was still tachycardic so patient was placed on amiodarone drip in addition. * She remains on amiodarone drip and Cardizem drip. She is on therapeutic Lovenox. * Cardiology on board. Per cardiology to place on oral beta-fili to will attempt to add an SHERLEY inhibitor or ARB as appropriate for cardiomyopathy. * 2D echo showed EF of 40% with mild global left ventricular hypokinesis. * TSH within normal limits. * * #Acute on chronic hypoxic respiratory failure * Could not be expected successfully after exploratory laparotomy. Was eventually transferred to the ICU. Was already on oxygen on account of parainfluenza infection * Today's postop day 5. * Breathing treatment with bronchodilators. Titrate oxygen to maintain saturation above 90%. * Critical care on board. * CT of the chest showed no evidence of PE and showed loculated right-sided and simple left pleural effusion and moderate centrilobular emphysema with cirrhosis and TIPS stent in place. * #Parainfluenza infection: * Management as above. #Hypernatremia: resolved. Sodium remains 144. #Lactic acidosis: resolved #GERD: on PPI #Chronic thrombocytopenia: * Likely due to cirrhosis and splenomegaly. Will monitor closely. * platelets are 125 today. * Is s/p TIPS. 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 Nicotine patch as needed DVT prophylaxis:lovenox therapeutic dose o/a of afib. Medications at Discharge Home Medications pantoprazole 40 mg tablet,delayed release (Protonix) 40 mg PO DAILY 06/30/22 albuterol sulfate 90 mcg/actuation breath activated powder inhaler 2 inh inhalation Q6H PRN shortness of breath or wheezing #1 ea 07/07/22 ondansetron 4 mg disintegrating tablet 4 mg translingual Q8H PRN nausea and vomiting 08/03/22 albuterol sulfate 2.5 mg/3 mL (0.083 %) solution for nebulization 2.5 mg inhalation UD 06/14/24 budesonide-formoterol HFA 160 mcg-4.5 mcg/actuation aerosol inhaler (Symbicort) 2 puff inhalation Q12H 06/14/24 gabapentin 600 mg tablet 600 mg PO QHS PRN pain 06/14/24 lactulose 10 gram/15 mL oral solution (Constulose) 10 g PO TID PRN constipation 06/14/24 mupirocin 2 % topical ointment 1 applic topical TID PRN skin irritation 06/14/24 oxycodone-acetaminophen 5 mg-325 mg tablet 1 tab PO BID PRN pain 06/14/24 nicotine 21 mg/24 hr daily transdermal patch 21 mg transdermal DAILY #30 ea 06/21/24 prednisone 20 mg tablet 40 mg (2 x 20 mg) PO DAILY #10 tabs 06/21/24 Weight / BMI Weight Weight: 164 lb 10.965 oz Body Mass Index (BMI) 25.0 ABG / Lab / Microbiology Data 07/01/24 03:10 07/01/24 03:10 Laboratory: Laboratory Results - last 24 hr 07/01/24 03:10: WBC 20.2 H, RBC 3.29 L, Hgb 10.7 L, Hct 32.3 L, MCV 98.2, MCH 32.5 H, MCHC 33.1, RDW Std Deviation 58.8 H, RDW Coeff of Ehath 16.8 H, Plt Count 125 L, MPV 10.6, Immature Gran % (Auto) 1.100 H, Neut % (Auto) 78.3 H, Lymph % (Auto) 3.6 L, [place] % (Auto) 8.1, Eos % (Auto) 8.7 H, Baso % (Auto) 0.2, Absolute Neuts (auto) 15.8 H, Absolute Lymphs (auto) 0.72 L, Nucleated RBC % 0.1, Differential Comment SCANNED, Diff Path Review September, Sodium 144, Potassium 4.2, Chloride 115 H, Carbon Dioxide 24.0, Anion Gap 6, BUN 31 H, Creatinine 0.64, Estim Creat Clear Calc 91.94, Est GFR (MDRD) Af Amer 120, Est GFR (MDRD) Non-Af 99, BUN/Creatinine Ratio 48.1 H, Glucose 111 H, Calcium 8.0 L, Vancomycin Trough 20.4 H 07/01/24 09:15: Random Vancomycin 16.8 H Microbiology: Microbiology 06/27/24 14:00 Blood Culture (Wb) - Other Blood Culture - Preliminary Yeast, not Myranda albicans 06/27/24 21:00 Urine Catheter - Serrato Urine Culture - Final Culture exhibits no growth. 06/26/24 14:55 Sputum, Induced/Lukens Gram Stain - Final 06/26/24 14:55 Sputum, Induced/Lukens Respiratory Culture - Final Escherichia coli Presumptive C albicans 06/23/24 17:49 Blood Culture (Wb) - Arm Left Blood Culture - Final No growth in 5 days. 06/23/24 17:05 Blood Culture (Wb) - Right Wrist Blood Culture - Final No growth in 5 days. 06/27/24 17:15 Nasal Secretion MRSA (PCR) - Final 06/23/24 16:50 Urine, Catheterized Urine Culture - Final Culture exhibits no growth. 06/24/24 01:20 Mucosa - Nose Respiratory Panel (PCR) - Final Parainfluenza 3 06/23/24 16:50 Urine, Random Legionella Antigen - Final 06/23/24 16:50 Urine, Random Streptococcus pneumoniae Antigen (M - Final D/C Instructions DC O2, CPAP, BIPAP Needs PSN CPAP & BiPAP: BiPAP & CPAP Settings per PSN Fraction of Inspired Oxygen ( 2 06/30/24 01:00 FIO2) Meaningful Use Info Ischemic Stroke Statin Dosing Therapy Reference: STATIN DOSE THERAPY REFERENCE: * Patients > 75 years receive moderate or high dose statin therapy. * Patients 75 years or YOUNGER should receive HIGH intensity statin dose unless contraindicated. You will be required to document reason for non-treatment if statin daily dose does not meet guidelines. HIGH DOSE STATIN THERAPY DAILY Atorvastatin > than or = to 40 mg Rosuvastatin > than or = to 20 mg Amlodipine + Atorvastatin > than or = to 2.5/40 mg Ezetimibe + Simvastatin 10/80 mg Simvastatin 80mg Discharge Plan Admission Admit Date/Time: 06/23/24 22:09 Attending Provider: Rain Moreno Primary Care Provider: Roslyn Amaral Consulting Providers: Edgar Dugan; Shakir Fritz; Joan Maldonado; Kashif Noe Discharge Orders/Prescriptions Prescriptions: No Action pantoprazole [Protonix] 40 mg tablet,delayed release (DR/EC) 40 mg PO DAILY albuterol sulfate 90 mcg/actuation aerosol powdr breath activated 2 inh inhalation Q6H PRN (Reason: shortness of breath or wheezing) Qty: 1 0RF ondansetron 4 mg tablet,disintegrating 4 mg translingual Q8H PRN (Reason: nausea and vomiting) gabapentin 600 mg tablet 600 mg PO QHS PRN (Reason: pain) oxycodone-acetaminophen 5-325 mg tablet 1 tab PO BID PRN (Reason: pain) albuterol sulfate 2.5 mg /3 mL (0.083 %) solution for nebulization 2.5 mg inhalation UD Patient Comments: PT UNSURE OF DIRECTIONS. budesonide-formoterol [Symbicort] 160-4.5 mcg/actuation HFA aerosol inhaler 2 puff INHALATION Q12H Patient Comments: PT UNSURE OF DIRECTIONS. mupirocin 2 % ointment 1 applic topical TID PRN (Reason: skin irritation) lactulose [Constulose] 10 gram/15 mL solution 10 g PO TID PRN (Reason: constipation) nicotine 21 mg/24 hr Patch 24 Hour 21 mg transdermal DAILY Qty: 30 0RF prednisone 20 mg tablet 40 mg PO DAILY Qty: 10 0RF Rx Instructions: start on 06/22/24 Referrals / Follow Up: Roslyn Amaral DO [Primary Care Provider] -
[2024-07-01] MEDS: Furosemide 40 MG/4 ML Vial IV ×2 (14:24→16:40)
[2024-07-01] MEDS: Ipratropium 0.5 MG/2.5 ML SOLUTION INHALATION ×2 (14:26→20:34)
[2024-07-01] MEDS: LORazepam 2 MG/ML Syringe 1 MG IV (15:44)
--- NOTE | 2024-07-01 16:01 | CASEMGMT ---
Social Work- SW met with pt and pt dtr extensively. Pt was agitated and anxious regarding breathing, but refusing treatments, refusing to get up to chair, refusing to leave bipap on, and yelling out. SW and pt dtr discussed pt baseline and care options, as pt does not want to be intubated. Pt dtr realistic of limitations of pt well-being if pt continues to refuse medical care; pt dtr feels that pt is not right cognitively and is not making good decisions. Physician to speak with pt and pt dtr and continue medical work-up; SW left the room. SW remains available to follow for pt needs. Plan: [facility]; when medically ready AND[facility]
--- NOTE | 2024-07-01 16:04 | RAD_ITS ---
PROCEDURE: CHEST 1 VIEW (PORTABLE) REASON FOR EXAM: Cough TECHNIQUE: Frontal view of the chest. COMPARISON: Reviewed FINDINGS: Interval extubation. Stable left-sided central venous catheter. Interval removal of enteric tube. Slight worsening right-sided moderate pleural effusion with adjacent airspace disease. No pneumothorax. Left lung grossly clear. Cardiomediastinal silhouette is essentially unchanged. Prominent loops of bowel partially visualized in the left upper quadrant. Correlate for obstruction. RAD/Chest 1 View (Portable) IMPRESSION: As above. Reading Location: [facility]
[2024-07-01] MEDS: Haloperidol Lactate 5 MG/ML Vial 1 MG IV (16:08)
[2024-07-01 16:32] LABS: Base Excess -6 mmol/L (-2 to +2); Bicarbonate 17.9 mmol/L (22-26); Blood Gas Specimen Type ART; Mode Not entered; O2 Delivery Device BiPAP; PEEP 6; PO2 70 mmHG (75-100); SITE R Brach; SO2 95 % (95-99); Total Carbon Dioxide 19 mmol/L; pCO2 27.2 mmHg (35-45); pH 7.43 (7.35-7.45)
[2024-07-01] MEDS: Norepinephrine 8 MG in 0.9% Normal Saline (250mL Bag) 242 ML 9.4 MG CONT INF (16:40)
--- NOTE | 2024-07-01 16:42 | CPS ---
Changed to AIRVO per Dr. Moreno.
[2024-07-01] MEDS: dexMEDEtomidine 400 MCG in 0.9% Normal Saline (100mL Bag) 96 ML 9.3 MCG CONT INF (16:57)
--- NOTE | 2024-07-01 17:34 | PCM.PN.TICU ---
Objective Data Objective Data Vital Signs: Vital Signs Last response Temperature 36.9 C 07/01/24 16:40 Temperature Source Core 07/01/24 16:40 Pulse Rate 96 07/01/24 16:42 Pulse Strength Normal (2+) 06/30/24 08:32 Respiratory Rate 42 H 07/01/24 16:42 Respiratory Effort Non-Labored 07/01/24 02:00 Respiratory Depth Shallow 07/01/24 02:00 Respiratory Pattern Tachypnea 07/01/24 16:42 Blood Pressure 77/53 L 07/01/24 16:40 Blood Pressure Mean 61 07/01/24 16:40 Blood Pressure Source Monitor 07/01/24 16:40 Blood Pressure Position Semi-Fowlers 07/01/24 16:40 Blood Pressure Location Left Arm 07/01/24 16:40 Pulse Ox 97 07/01/24 16:42 Oxygen Delivery Method Airvo 07/01/24 16:40 Oxygen Flow Rate (L/min) 60 07/01/24 16:40 Fraction of Inspired Oxygen (FIO2) 30 07/01/24 16:42 CLA-BSI maintained Yes 06/29/24 03:06 I&O: I&O Last 24 Hours 06/30/24 07/01/24 07/01/24 23:59 11:59 23:59 Intake Total 386.4 / 2316.70 530 / 1110 580 / 1110 Output Total 250 / 1025 50 / 550 500 / 550 Balance 136.4 / 1291.70 480 / 560 80 / 560 I&O: Total Stay 06/23/24 16:02 thru 07/01/24 17:02 Intake Total .04 Output Total 7914 Balance 40572.04 Current Meds Ordered / Administered: Current meds ordered / Administered Generic Name Dose Route Start Last Admin Trade Name Freq PRN Reason Stop Dose Admin Acetaminophen 650 mg 06/23/24 23:36 Acetaminophen 650 Mg Suppository RC Q6H PRN PRN Pain 1-5/10 or Fever Albuterol Sulfate 2.5 mg 06/24/24 06:52 Albuterol 2.5 Mg/3 Ml Vial.Neb. INHALATION Q2H PRN PRN SHORTNESS OF BREATH Amiodarone HCl 200 mg 07/02/24 10:30 Amiodarone 200 Mg Tablet PO DAILY JENAE Chlorhexidine Gluconate 1 each 06/28/24 10:00 07/01/24 09:40 Chlorhexidine Gluc 2% Cloth 1 Each [place] TOPICAL Not Given DAILY JENAE Enoxaparin Sodium 70 mg 06/29/24 22:00 07/01/24 09:40 Enoxaparin 80 Mg/0.8 Ml Syringe SC 70 mg BID JENAE Administration Guaifenesin 1,200 mg 06/24/24 10:00 07/01/24 09:40 Guaifenesin 1,200 Mg Tablet PO Not Given BID JENAE Vancomycin IV-PHARMACY TO DOSE 500 mls @ 250 mls/hr 06/23/24 23:36 1 each/ Sodium Chloride IV PRN PRN Rx to Dose Protocol Piperacillin Sod/Tazobactam 50 mls @ 12.5 mls/hr 06/23/24 23:36 07/01/24 17:02 Sod 3.375 gm/ Sodium Chloride IV Infused Q8 JENAE Infusion Pantoprazole Sodium 40 mg/ 110 mls @ 330 mls/hr 06/24/24 10:00 07/01/24 10:26 Sodium Chloride IV Infused DAILY JENAE Infusion Vancomycin HCl 1,500 mg/ 530 mls @ 250 mls/hr 07/01/24 11:00 07/01/24 13:43 Sodium Chloride IV Infused Q24H JENAE Infusion Norepinephrine Bitartrate 8 mg 250 mls @ 9.375 mls/hr 07/01/24 16:30 07/01/24 16:40 / Sodium Chloride CONT INF 5 mcg/min .[id number] JENAE 9.4 mls/hr Administration Protocol 5 MCG/MIN Dexmedetomidine HCl 400 mcg/ 100 mls @ 9.338 mls/hr 07/01/24 16:45 07/01/24 16:57 Sodium Chloride CONT INF 0.5 mcg/kg/hr .[id number] JENAE 9.3 mls/hr Administration Protocol 0.5 MCG/KG/HR Micafungin Sodium 100 mg/ 105 mls @ 100 mls/hr 07/01/24 18:00 Dextrose IV Q24H JENAE Ipratropium [place] 0.5 mg 06/28/24 12:15 07/01/24 14:26 Ipratropium 0.5 Mg/2.5 Ml Solution INHALATION 0.5 mg Q6HWA.RT JENAE Administration Lactulose 10 gm 06/24/24 06:53 Lactulose 20 Gm/30 Ml Udc PO TID PRN PRN constipation Methylprednisolone 40 mg 06/26/24 10:00 07/01/24 09:41 Methylprednisolone 40 Mg/Ml Vial IV 40 mg DAILY JENAE Administration Metoprolol Tartrate 25 mg 06/30/24 20:00 07/01/24 09:53 Metoprolol Tartrate 25 Mg Tablet PO 25 mg BID JENAE Administration Protocol Morphine Sulfate 2 mg 06/23/24 23:36 07/01/24 15:14 Morphine 2 Mg/Ml Syringe IV 2 mg Q4H PRN PRN Administration Pain Score 6-10 Mupirocin 1 applic 06/23/24 23:36 06/24/24 23:41 Mupirocin Ointment 22gm Tube TOPICAL 1 applic TID PRN Administration skin irritation Protocol Nicotine 21 mg 06/24/24 10:00 07/01/24 09:41 Nicotine 21 Mg Patch TD 21 mg DAILY JENAE Administration Nutritional Formula (Lactose Free) 240 ml 06/30/24 17:00 07/01/24 17:01 Ensure Clear 120 Ml Liquid PO Not Given TIDCM [facility] Ondansetron HCl 4 mg 06/23/24 23:36 06/28/24 22:09 Ondansetron 4 Mg/2 Ml Vial IV 4 mg Q4H PRN PRN Administration NAUSEA/VOMITING Phenol/Menthol 3 spray 06/24/24 23:26 06/28/24 22:09 Phenol/Sodium Phenolate 180ml MUCOUS MEM 3 spray Q2H PRN PRN Administration SORE THROAT Promethazine HCl 12.5 mg 06/23/24 23:36 06/30/24 17:35 Promethazine 25 Mg/Ml Syringe IM 12.5 mg Q4H PRN PRN Administration BREAKTHROUGH NAUSEA Vancomycin Protocol 1 lab 07/03/24 09:30 Vancomycin Trough/Random Due MC 07/03/24 11:30 DAILY [facility] Lab / Micro Data Attestation: I reviewed the patient's lab results. 07/01/24 03:10 07/01/24 03:10 Labs: Laboratory Results - last 24 hr 07/01/24 03:10: WBC 20.2 H, RBC 3.29 L, Hgb 10.7 L, Hct 32.3 L, MCV 98.2, MCH 32.5 H, MCHC 33.1, RDW Std Deviation 58.8 H, RDW Coeff of Heath 16.8 H, Plt Count 125 L, MPV 10.6, Immature Gran % (Auto) 1.100 H, Neut % (Auto) 78.3 H, Lymph % (Auto) 3.6 L, [place] % (Auto) 8.1, Eos % (Auto) 8.7 H, Baso % (Auto) 0.2, Absolute Neuts (auto) 15.8 H, Absolute Lymphs (auto) 0.72 L, Nucleated RBC % 0.1, Differential Comment SCANNED, Diff Path Review September foll, Sodium 144, Potassium 4.2, Chloride 115 H, Carbon Dioxide 24.0, Anion Gap 6, BUN 31 H, Creatinine 0.64, Estim Creat Clear Calc 91.94, Est GFR (MDRD) Af Amer 120, Est GFR (MDRD) Non-Af 99, BUN/Creatinine Ratio 48.1 H, Glucose 111 H, Calcium 8.0 L, Vancomycin Trough 20.4 H 07/01/24 09:15: Random Vancomycin 16.8 H Micro: Microbiology 06/27/24 14:00 Blood Culture (Wb) - Other Blood Culture - Preliminary Yeast, not Myranda albicans ABG Data ABG results: ABG 07/01/24 16:29 Specimen Type ART Sample Site R Brach pH 7.43 Bicarbonate Actual 17.9 L Total CO2 19 Base Excess -6 L O2 Saturation 95 O2 % 35.0 ABG pCO2 27.2 L ABG pO2 70 L O2 Delivery Device BiPAP Vent Mode Not entered POC PEEP 6 Imaging Radiology Impression Chest X-Ray 07/01/24 16:04 IMPRESSION: As above. Reading [facility] Assessment and Plan . Assessment and plan: IMPRESSIONS: 1. Acute on chronic hypoxemic respiratory failure- Interval worsening of global status since seen and discharged from pulmonary consult yesterday; she is in distress but does not seem to be in danger of imminent respiratory arrest. She is ventilating adequately but has post-operative changes in right lung base and also clearly has underlying lung disease complicating her assessment. Significant component of anxiety or volitional respiratory distress is suspected based on the assessments. Precedex has been initiated and has not been effective yet but there is still time to possibly see benefit. 2. Septic shock Resolved. 3. Small bowel obstruction status post surgical resection Note is made surgery is concerned about her overall lack of progress to date (POD 5 following laparotomy and bowel resection 4. Atrial fibrillation with RVR Medical management per cardiology recommendations.Reduced EF 40% is noted. 5. 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 Continue supportive measures as noted above. 1. Agree with current high-flow O2 support 2. Precedex titrated to maximum dose 3. may need additional anxiolysis if Precedex ultimately ineffective 4. gentle diuresis Critical Care Time: 60 minutes The entirety of this encounter was done via Telemedicine Physical Exam Const General Appearance: in distress, uncooperative, ill appearing, frail and appears older than stated age Exam Limitations: behavioral limitations HEENT head/scalp atraumatic External Ear: external ears normal Mouth: oral and palatal mucosa normal Eyes PERRL Neck full ROM Resp Effort and Inspection: abnormal respiratory pattern, respiratory distress and grunting Subjective Subjective Reconsulted for respiratory distress in the setting of persistent complaints of discomfort and refusal to participate in routine post-op care with staff. She had been signed off by Dr. Salgado yesterday when she was doing well from respiratory standpoint. She is tachypneic and moaning/ groaning continuously with every breath. Blood gases have been obtained during this period which show adequate ventilation and changes related to persistent tachypnea. Chest CT from 4 days ago and CXR show right base atelectasis/ effusion which is to be expected in post-op state. No meaningful history can be onbtained from the patient as she refuses to engage interviewer.
[2024-07-01] MEDS: Micafungin Sodium 100 MG in Dextrose 5%-Water (100mL Bag) 100 ML IV (17:42)
--- NOTE | 2024-07-01 17:53 | CT_ITS ---
PROCEDURE: BRAIN/HEAD WITHOUT CONTRAST REASON FOR EXAM: Confusion TECHNIQUE: Noncontrast CT of the head performed. Multiplanar reconstructions. COMPARISON: June 03, 2018 FINDINGS: No acute intracranial hemorrhage. No loss of leavitt-white differentiation.The ventricles and sulci are normal in appearance. The osseous structures are unremarkable. No soft tissue abnormality identified. The paranasal sinuses and mastoid air cells are clear. CT/Brain/Head without Contrast IMPRESSION: 1. No acute intracranial abnormality. Reading Location: [facility]
--- NOTE | 2024-07-01 17:55 | CT_ITS ---
PROCEDURE: CT CHEST, ABD, PEL W/CONTRAST REASON FOR EXAM: Shortness of breath TECHNIQUE: Chest, abdomen and pelvis CT with intravenous contrast. Multiplanar reconstructions performed. COMPARISON: 07/01/2024 FINDINGS: CHEST: Lungs/pleura: There is a moderate-sized right pleural effusion with a dependent rounded area of hyperattenuation measuring 6.8 x 3.3 cm, possibly representing hemothorax. There is significant atelectasis in the right lung base due to volume loss. Superimposed infiltrate is not excluded. There is a small left pleural effusion. Emphysematous disease is present. Cardiovascular: The heart is normal in size.The aorta and pulmonary arteries are unremarkable. Pericardium: No effusion. Mediastinum: Unremarkable. Lymph nodes: No lymph node enlargement by CT size criteria. Bones: No acute osseous abnormality.Cervical fusion hardware is partially visualized. Soft tissues: Unremarkable. ABDOMEN/PELVIS: Liver: Cirrhotic morphology of the liver with a nodular contour. A patent TIPS shunt is present. Biliary/gallbladder: Prior cholecystectomy. Pancreas: Unremarkable. Spleen: Unremarkable. Adrenal glands: Unremarkable. Kidneys: Unremarkable. Gastrointestinal/Peritoneum: There is extravasation of enteric contrast into the pelvis with a large anterior collection of enteric contrast and gas measuring 8.0 x 7.4 cm and a large posterior pelvic collection of enteric contrast and gas measuring 9.5 x 5.5 cm. There is dehiscence across the small-bowel anastomosis in the right lower quadrant, with extravasation of enteric contrast seen on image 90 of series 6. There is otherwise a small volume of ascites in the upper abdomen.No significant bowel dilatation identified. Vascular: There are moderate scattered atherosclerotic calcifications. Lymph nodes: No enlarged lymph nodes by CT size criteria. Pelvic organs: Prior hysterectomy. Bladder: The urinary bladder is nondistended with a Esrrato catheter in position. Bones: No acute osseous abnormality.Prior ORIF of the right hip. Prior hardware removal in the lumbar spine were there is evidence of prior fusion and laminectomy. Moderate multilevel degenerative changes are present in the visualized spine. Soft tissues: Extensive body wall edema is present with a few tiny foci of subcutaneous gas at the anterior abdominal wall, likely due to injection sites. CT/CT Chest, Abd, Pel w/Contrast IMPRESSION: 1. Dehiscence of a small bowel anastomosis in the right lower quadrant of the p marita with extensive leakage of enteric contrast into the pelvis, with a large anterior and posterior collection, as described a rodger. 2. Moderate right pleural effusion with a large rounded higher attenuation nikki ection within the effusion posteriorly, likely representing a hematoma. 3. Consolidation of the right lung base with volume loss, likely due to atelect asis. Superimposed infiltrate is not excluded. 4. Small left pleural effusion. 5. Small volume of abdominal ascites. 6. Extensive body wall edema. 7. Indwelling Serrato catheter. 8. Cirrhosis of the liver with a patent TIPS shunt. Emergent findings discussed via telephone with Dr. Wang at 0854 hours on 07/01 . Reading [facility]
[2024-07-01] MEDS: Vasopressin 20 UNITS in 0.9% Normal Saline (50mL Bag) 24 ML 3 UNITS CONT INF ×2 (18:33→22:49)
[2024-07-01 20:25] LABS: Absolute Lymphocyte Count 0.41 X10^3/uL (0.83-4.51); Absolute Neutrophil Count 6.7 X10^3/uL (2.0-7.7); Basophil# 0.03 X10^3/uL; Basophil% 0.4 % (0-1); Lymphocyte # 0.41 X10^3/ul (0.83-4.51); Lymphocyte % 5.2 % (19-41); Mean Corp Hgb Conc 33.3 g/dL (32-36); Mean Corpuscular Hgb 32.9 pg (27.0-32.0); Mean Corpuscular Volume 98.7 fL (81-99); Mean Platelet Vol. 10.6 fl (6.2-12.0); Monocyte# 0.62 X10^3/uL; Monocyte% 7.8 % (0-10); NRBC Flagged by Analyzer 1.6 % (0-5); Neutrophil # 6.69 X10^3/uL (2.7-7.7); Neutrophil % 84.5 % (47-70); POSITIVE DIFFERENTIAL YES; POSITIVE MORPHOLOGY YES; Platelet Count 105 K/mm3 (150-450); RBC Distribution Width SD 60.1 fl (35.1-43.9); Red Blood Count 3.04 M/mm3 (4.2-5.4); White Blood Count 7.9 K/mm3 (4.4-11.0)
[2024-07-01 20:26] LABS: Differential Indicated SCAN CRITERIA MET
--- NOTE | 2024-07-01 21:03 | PCM.HOSP.N ---
Hospitalist Note CT chest /abd/pelvis reviewed with radiology. Final read impression: 1. Dehiscence of a small bowel anastomosis in the right lower quadrant of the pelvis with extensive leakage of enteric contrast into the pelvis, with a large anterior and posterior collection, as described above. 2. Moderate right pleural effusion with a large rounded higher attenuation collection within the effusion posteriorly, likely representing a hematoma. 3. Consolidation of the right lung base with volume loss, likely due to atelectasis. Superimposed infiltrate is not excluded. 4. Small left pleural effusion. 5. Small volume of abdominal ascites. 6. Extensive body wall edema. 7. Indwelling Serrato catheter. 8. Cirrhosis of the liver with a patent TIPS shunt. Following discussions immediately discussed patient with General Surgeon Dr. Rivas who had been aware of recent status change and was also awaiting imaging. He notes plan to review findings with family directly, discuss findings also directly with radiology. Given patient current status, adding meet pressor therapy in addition. Requested NGT be placed to LIWS immediately and requested under no circumstances BIPAP be utilized. Will await family-surgery discussions for plan of care but given her precarious status she would be a poor surgical candidate and feel her demise would be a likely possibility intraoperatively. Requested also that ICU physician be updated and made aware of her status, image findings.
[2024-07-01 21:08] LABS: Lactic Acid 3.8 mmol/L (0.4-1.9)
[2024-07-01 21:13] LABS: ALB/GLOB Ratio 0.6 RATIO (0.9-2.4); AST(SGOT) 19 U/L (15-37); Alanine Aminotransfer ALT/SGPT 19 U/L (13-56); Albumin, Serum 1.1 g/dL (3.2-5.0); Alkaline Phosphatase 56 U/L (45-117); Anion Gap 9 (5-15); BUN 37 mg/dL (7-18); BUN/Creat Ratio 39.8 RATIO (10-20); Calcium,Total 7.4 mg/dL (8.5-10.1); Chloride 116 mmol/L (98-107); Creatinine, Serum 0.93 mg/dL (0.55-1.02); EST Glomerular Filtration Rate 65 mL/min (>60); Est Glom Filt Rate - Afr Amer 78 mL/min (>60); Estimated Creatinine Clearance 63.27 ml/min; Globulin 1.9 g/dL (2.2-4.2); Glucose 107 mg/dL (74-106); Potassium 3.6 mmol/L (3.5-5.1); Sodium Level 143 mmol/L (136-145)
[2024-07-01 21:26] LABS: Anisocytosis 1+; Macrocytosis 1+; Platelet Estimate MOD DEC (ADEQ); Red Cell Morphology N CHROM NORMAL (NORM C&C)
[2024-07-01 21:53] LABS: Base Excess -6 mmol/L (-2 to +2); Bicarbonate 18.2 mmol/L (22-26); Blood Gas Specimen Type ART; Comment AIRVO 50L 33%; Mode Not entered; O2 Delivery Device HFNC; PO2 82 mmHG (75-100); SITE R Radial; SO2 97 % (95-99); Total Carbon Dioxide 19 mmol/L; pCO2 26.2 mmHg (35-45); pH 7.45 (7.35-7.45)
[2024-07-01] MEDS: Norepinephrine 8 MG in 0.9% Normal Saline (250mL Bag) 242 ML 56.3 MG CONT INF (21:55)
--- NOTE | 2024-07-01 22:08 | PCM.PN.BLA ---
Progress Note Patient was seen and evaluated this afternoon after nursing notified me that patient had become more tachypneic. Patient then placed on BiPAP to try to reduce her work of breathing but appeared to be in persistent distress with the same respiratory rate. I was concerned that patient would quickly hyperventilate and lose his respiratory drive?thus necessitating reintubation. We obtained a blood gas and a stat chest x-ray that showed evidence of combined respiratory alkalosis and metabolic acidosis while chest x-ray showed rather stable appearance of a known right pleural effusion. During the course of this short investigation patient became increasingly hypotensive requiring reinitiation of vasopressor therapy. It was at this time that I held a brief conversation with patient's daughter who was at bedside and attempted to elicit any direction from her as to whether or not she and the family were inclined to proceed with reintubation if that is what her mother's clinical course dictated. However, patient's daughter was just mostly receptive on the clinical information and requested return visit when available. I was notified shortly thereafter by primary hospitalist that patient was receiving max dose Levophed and awaiting initiation of vasopressin and plans were in place to proceed to get a CT of the chest abdomen pelvis as well as CT brain if patient became more stable to try to better explain her acute decompensation. This imaging was ultimately completed and radiology read patient's CT abdomen imaging sharing there was evidence of anastomotic dehiscence with extravasation into the pelvis. I reviewed patient's CT imaging and found this appearance as described and discussed briefly with overnight hospitalist coverage as well as attending surgeon Dr. Fritz. I then presented to bedside and discussed the clinical update with patient's daughter. I clearly stated that an intervention would be required to prevent further contamination and development of more fulminant septic shock, but that I did not recommend proceeding to surgery as it would likely lead to an intraoperative mortality event. Patient's daughter questioned how an anastomotic disruption could have occurred and I explained how her lack of nutrition, her preoperative comorbidities, and even potential malperfusion of the anastomosis all were possibilities or could have combined for the outcome. Unfortunately, none of these variables was improved over patient's preoperative status and in fact most that worsened. I then offered to share the CT imaging with the patient's daughter and she expressed an interest so she was shown the area of concern in the jarad extravasation into the fluid collection in the pelvis. Upon seeing these pictures patient's daughter expressed understanding and expressed a wish to move her mother towards comfort care. However, she requested that her mother be kept in the hospital for a little while longer and she was reluctant to withdrawal any vasopressor support at this time. I encouraged patient's daughter to gather family or friends that she thought may want to say their goodbyes and patient's CODE STATUS was changed to DNR CCA accordingly. Both hospitalist service and salesperson household appliances were also notified of this update.
[2024-07-01] MEDS: Phenylephrine 10 MG in 0.9% Normal Saline (250mL Bag) 249 ML 15 MG CONT INF (23:18)
[2024-07-02] VITALS (13 sets, daily range): BP systolic 34–114; BP diastolic 17–77; PULSE 65–109; RESP 23–37; TEMP 37.4–37.7; O2SAT 92–99
[2024-07-02 00:20] LABS: Reflex Lactate? Y
[2024-07-02] MEDS: Phenylephrine 10 MG in 0.9% Normal Saline (250mL Bag) 249 ML 195 MG CONT INF (00:57)
[2024-07-02] MEDS: Norepinephrine 8 MG in 0.9% Normal Saline (250mL Bag) 242 ML 56.3 MG CONT INF (01:00)
--- NOTE | 2024-07-02 01:23 | PCM.HOSP.N ---
Hospitalist Note Family present and per their request will initiate hospice comfort orders. Will also clarify at this time if family preference also to attempt to de-escalate aggressive treatments including abx, pressor therapies also.
[2024-07-02] MEDS: Glycerin/Hypromellose/PEG400 15 ml Bottle 2 DRP EACH EYE (01:52)
[2024-07-02] MEDS: Phenylephrine 10 MG in 0.9% Normal Saline (250mL Bag) 249 ML 270 MG CONT INF (01:52)
[2024-07-02] MEDS: Morphine 2 MG/ML Syringe IV ×3 (02:24→05:01)
[2024-07-02] MEDS: LORazepam 2 MG/ML Syringe 0.5 MG IV ×3 (02:24→05:01)
--- NOTE | 2024-07-02 03:23 | NURSING ---
Hospice meds ordered. Morphine and ativan given. Requested more from Dr Wang due to pt continually breathing in the high 30's. Dr Wang said it was okay to give another dose and change order to Q1 hour each for comfort.
--- NOTE | 2024-07-02 05:12 | CPS ---
Patient transported on BIPAP to CT, Patient placed back on AIRVO per RN/ after arriving back to patient room after CT scan
--- NOTE | 2024-07-02 12:14 | EXP.PCM_ITS ---
Preliminary Cause of Preliminary Cause of Preliminary Cause of : acute cardiopulmonary arrest due to septic shock due to dehiscence of intra abdominal anastomosis with peritonitis Date of Admission: 06/23/24 Date of : 07/02/24 Principle Diagnosis septic shock, peritonitis due to anastomotic dehiscence s/p surgery for small bowel obstruction Problem List: Active and Suspected Problems (Updated 06/30/24 @ 18:[address] Kashif Noe MD) Cardiomyopathy (Acute) Atrial fibrillation (Acute) Infection due to parainfluenza virus 3 (Acute) Intractable nausea and vomiting (Acute) Lactic acidosis (Acute) Leukocytosis (Acute) Small bowel obstruction (Acute) Hyperbilirubinemia (Acute) Hypoalbuminemia (Acute) Diarrhea (Acute) SBO (small bowel obstruction) (Acute) Respiratory insufficiency (Acute) Sepsis (Acute) Pneumonia (Acute) Hospital Course Patient was a 64-year-old female with an extensive past medical history as outlined was admitted with complaint of shortness of breath. She had been discharged home 2 days prior to admission after being admitted and managed for acute exacerbation of COPD with right upper lobe pneumonia and completed a course of levofloxacin. However she said she went home and was still feeling short of breath and coughing up brown sputum. She also had tachycardia with heart rate going up to the 160s and also had nonbloody diarrhea with nausea and vomiting. She therefore came into the ED. On admission she was found to have elevated white cell count of 22,000 with lactic acidosis of 3.6 and chest x-ray showed right-sided pneumonia with moderate right pleural effusion. CT abdomen and pelvis showed evidence of suspected small bowel obstruction. Bilirubin was also elevated at 3.3. She was initially admitted and managed for acute exacerbation of COPD as well as concern for small bowel obstruction. She was kept n.p.o. and placed on IV Solu-Medrol and breathing treatments. General surgery was consulted. His shortness of breath gradually did improve and she felt better. General surgery determined that patient would need exploratory laparotomy as a small bowel obstruction was not resolving. She therefore had exploratory laparotomy on 06/26/2024. Patient could not be extubated after the surgery she was admitted to the ICU. She had a central line placed. Hospital course was complicated by development of A-fib with RVR for which cardiology was consulted. She was placed on amiodarone and Cardizem drip and started on therapeutic Lovenox. She was successfully weaned off amiodarone and Cardizem drips and placed on p.o. metoprolol. Patient seem to be improving and was up in much more communicative. She had been on Levophed and was weaned off of this. On the morning of 07/01/2024 patient was seen and examined. The general surgeon was present at that time. Patient does complain of some rectal pressure but de nied any fever or chills, shortness of breath or nausea or vomiting. Her daughter was by her bedside. To me she did not complain of any abdominal pain at that time. Review of symptoms otherwise negative. Her white cell count was noted to have gone up to 20. This was discussed with the general surgeon who recommended that we monitor for now as it could be reactive and if it remained elevated the next day to get further workup with waldron cultures and imaging as needed. Later in the afternoon of 07/01/2024, I was informed by nurse that patient had become acutely tachypneic. Patient had apparently been sitting and chatting with her daughter and then she suddenly fell back in the bed and became very short of breath. She was breathing up in the 50s. She was also very anxious. There was concern for anxiety and so initial order of 1 mg of IV Ativan was given. She subsequently received another milligram of Haldol. Patient was placed on BiPAP. Patient was evaluated at her bedside. General surgeon was present and expressed concerns with patient being on BiPAP as he was concerned that this could cause increased pressure which could affect the anastomotic sites. Based on these concerns patient was switched to Airvo. ABG done showed pH of 7.43 with pCO2 of 27.3 and pO2 of 70. This was indicated of respiratory alkalosis due to the hyperventilation. Stat chest x-ray done showed evidence of a right loculated pleural effusion. Initial concern was that this was due to anxiety as patient had had a history of anxiety and had actually required Precedex drip during this admission. Precedex drip was therefore ordered. Patient however became hypotensive and with this change, my concern was that it was less likely anxiety and likely related to an intra-abdominal pathology in light of her recent surgery. Patient was started on Levophed. CT chest abdomen and pelvis ordered. Patient was however maxed out on the Levophed and had to be started on vasopressin as well. IV micafungin was added on as blood cultures showed growth of a yeast which was not Myranda albicans. ID was also consulted at that time. Concerns for intra-abdominal pathology were discussed with general surgeon as being the likely etiology of her sudden change in condition. Per general surgery, even if it was an intra-abdominal pathology that was the cause, patient would not be a surgical candidate due to her very tenuous status. This hospitalist spoke to patient's daughter extensively about her poor prognosis and the fact that if it was on intra-abdominal pathology she would not be a surgical candidate. CODE STATUS was discussed with patient's daughter again who wanted her to remain full code for now though she was amenable to her CODE STATUS being changed as she did not want her to suffer. CT of the abdomen and pelvis done subsequently showed dehiscence of the small bowel anastomosis in the right lower quadrant of the pelvis with extensive leakage of enteric contrast into the pelv is with a large anterior and posterior collection and moderate right pleural effusion with large rounded high attenuation collection within the effusion posteriorly likely representing a hematoma and consolidation of the right lung base with volume loss likely due to atelectasis. General surgeon was made aware of this and he discussed the findings with patient's family. Again was discussed with patient's family that patient was very high risk for intraoperative mortality and so was not a surgical candidate. Family then decided to switch her CODE STATUS to DNR CC. Patient on 07/02/2024 at 1045. Cause of is acute cardiopulmonary arrest due to septic shock on account of peritonitis due to dehiscence of small bowel anastomotic site. Visit Charges Inpatient E&M: 06292 Disch Hosp
[2024-07-03 13:42] LABS: Pathologist Review Reviewed
--- NOTE | 2024-07-03 15:26 | CASEMGMT ---
CHIQUIS was informed that patient's daughter Le wanted to talk with the social media assistant that finalized patient's Healthcare Power of Grinding Wheel Operator (HCPOA. CHIQUIS called Le and she asked if she could get a copy of the documents. CHIQUIS let Le know that once a patient passes the HCPOA is null and void. Le thanked CHIQUIS as she did not know that. CHIQUIS offered condolences for the loss of her mom. Romelia Wood [employer] [place]
== END 2024-07-02 10:45 | DRG 710 ==
LOC: ED 22:33 → ICU 22:47 → MS3 06-24 16:37 → ICU 06-27 04:04
PROVIDERS: Family Medicine; Internal Medicine; Internal Medicine Critical Care Medicine; Internal Medicine Nephrology; Physician Assistant; Surgery; Admitting Provider Internal Medicine; Emergency Provider Emergency Medicine; PCP Family Medicine; Referring Provider Internal Medicine; Visit Provider Student in an Organized Health Care Education/Training Program
PROC: 0DT80ZZ Resection of Small Intestine, Open Approach (ICD-10-PCS; CPT 44202; principal; 2024-06-26 11:40)
DX: A41.9 Sepsis, unspecified organism (principal); R65.21 Severe sepsis with septic shock; R57.8 Other shock; J96.21 Acute and chronic respiratory failure with hypoxia; K56.609 Unspecified intestinal obstruction, unspecified as to partial versus complete obstruction; Z51.5 Encounter for palliative care; J44.1 Chronic obstructive pulmonary disease with (acute) exacerbation; K70.30 Alcoholic cirrhosis of liver without ascites; D69.59 Other secondary thrombocytopenia; I42.9 Cardiomyopathy, unspecified; I48.91 Unspecified atrial fibrillation; J43.2 Centrilobular emphysema; J18.9 Pneumonia, unspecified organism; E87.0 Hyperosmolality and hypernatremia; J90 Pleural effusion, not elsewhere classified; E87.20 Acidosis, unspecified; E88.09 Other disorders of plasma-protein metabolism, not elsewhere classified; E78.5 Hyperlipidemia, unspecified; F17.210 Nicotine dependence, cigarettes, uncomplicated; E87.8 Other disorders of electrolyte and fluid balance, not elsewhere classified; I46.9 Cardiac arrest, cause unspecified; K21.9 Gastro-esophageal reflux disease without esophagitis; M19.90 Unspecified osteoarthritis, unspecified site; F41.9 Anxiety disorder, unspecified; K91.89 Other postprocedural complications and disorders of digestive system; E87.3 Alkalosis; B19.20 Unspecified viral hepatitis C without hepatic coma; J44.0 Chronic obstructive pulmonary disease with (acute) lower respiratory infection; Z66 Do not resuscitate; K65.9 Peritonitis, unspecified; R18.8 Other ascites; Z79.1 Long term (current) use of non-steroidal anti-inflammatories (NSAID); Z86.16 Personal history of COVID-19; Z79.51 Long term (current) use of inhaled steroids; Z81.8 Family history of other mental and behavioral disorders; Z79.01 Long term (current) use of anticoagulants; Z90.710 Acquired absence of both cervix and uterus; Z79.52 Long term (current) use of systemic steroids; Z90.49 Acquired absence of other specified parts of digestive tract; T81.328A Disruption or dehiscence of closure of other specified internal operation (surgical) wound, initial encounter; Y83.9 Surgical procedure, unspecified as the cause of abnormal reaction of the patient, or of later complication, without mention of misadventure at the time of the procedure; B34.8 Other viral infections of unspecified site
CPT/HCPCS: 36415; 36600; 70450; 71045; 71260; 71275; 74018; 74177; 80048; 80053; 80061; 80202; 80307; 81001; 82077; 82550; 82652; 82803; 82962; 83605; 83735; 83880; 84100; 84145; 84478; 84484; 85014; 85018; 85025; 85610; 85730; 87040; 87070; 87077; 87086; 87186; 87205; 87449; 87633; 87641; 88307; 93005; 93308; 94002; 94003; 94640; 94660; 94668; 94762; 97162; 97166; 97530; 97535; 97802; 97803; 99285; 99406; P9612; Q9957; Q9967; A4216; C1751; J0696; J1940; J2405